=== PATIENT | male | born 1980 | race Caucasian/White ===

== ENCOUNTER 2017-01-17 22:28 | Inpatient (IN) | payer MEDICAID, OTHER ==
[2017-01-17 23:05] LABS: Basophils # (A) 0.1 k/uL (0-0.2); Basophils % (A) 1 %; CH 32.3; CHCM 36.4; Eosinophils # (A) 0.1 k/uL (0-0.7); Eosinophils % (A) 2 %; HDW 2.44; HGB 12.3 gm/dL (13.0-17.5); Luc # (Auto) 0.11; Luc % (Auto) 3; Lymphocytes # (A) 1.6 k/uL (1.0-4.8); Lymphocytes % (A) 37 %; MCH 31.2 pg (25.0-35.0); MCV 89.2 fL (80.0-100.0); Mean Platelet Volume 7.3; Monocytes # (A) 0.3 k/uL (0-1.0); Monocytes % (A) 7 %; Neutrophils # (A) 2.1 k/uL (1.3-7.7); Neutrophils % (A) 50 %; RBC 3.93 m/uL (4.30-5.90); RDW 13.2 % (11.5-15.5); WBC 4.3 k/uL (3.8-10.6); WBC (Perox) 4.31
[2017-01-17 23:18] LABS: Partial Thromboplastin Time 22.4 sec (22.0-30.0); Prothrombin Time 10.4 sec (9.0-12.0)
[2017-01-17 23:19] LABS: ALT 39 U/L (21-72); AST 32 U/L (17-59); Alcohol 60 mg/dL; Alkaline Phosphatase 41 U/L (38-126); Anion Gap 11 mmol/L; Blood Urea Nitrogen 13 mg/dL (9-20); Calcium 10.3 mg/dL (8.4-10.2); Carbon Dioxide 27 mmol/L (22-30); Chloride 102 mmol/L (98-107); Glucose 113 mg/dL (74-99); Magnesium 1.4 mg/dL (1.6-2.3); Non-African American GFR(MDRD) >60 (>60 ml/min/1.73 sqM); Potassium 3.3 mmol/L (3.5-5.1); Sodium 140 mmol/L (137-145); Total Bilirubin 0.5 mg/dL (0.2-1.3); Total Protein 6.7 g/dL (6.3-8.2)
[2017-01-17 23:33] LABS: Creatine Kinase 271 U/L (55-170)
[2017-01-17] MEDS ORDERED: POTASSIUM CHLORIDE ER 20 MEQ TAB.ER PO STA (23:40)
[2017-01-17] MEDS ORDERED: MAGNESIUM SULFATE-D5W PMX 1 GM in DEXTROSE/WATER 1 100ML.BAG IVPB ONE (23:40)
[2017-01-17] MEDS ORDERED: SODIUM CHLORIDE 0.9% 1,000 ML IV ONE (23:40)
[2017-01-17 23:46] LABS: Troponin I <0.012 ng/mL (0.000-0.034)
--- NOTE | 2017-01-17 23:51 | ED ---
General Adult HPI - General Chief complaint: Chest Pain Stated complaint: chest pain/blurred vision Time Seen by Provider: 01/17/17 22:43 Source: patient, RN notes reviewed, old records reviewed Mode of arrival: ambulatory Limitations: no limitations - History of Present Illness Initial comments: 29-year-old male presents with multiple complaints. Patient has past medical history of a call abuse and depression. He presents with chief complaint of generalized weakness, nausea vomiting diarrhea over the past several days as well as anterior chest tightness which present for 3 days constant nature, nonradiating. Patient also reports suicidal ideation. He will not explain a specific plan but does state that he wants to end his life. Patient denies any ingestion. He states he drank 1 shot of alcohol over the past 3 days. Does have a history of chronic pain and was previously on opiate pain medications but states he has not had this in several weeks. - Related Data Home Medications Medication Instructions Recorded Confirmed Dextroamphetamine/Amphetamine 20 mg PO QAM 01/17/17 01/17/17 [Adderall Xr] buPROPion HCL [Wellbutrin XL] 300 mg PO DAILY 01/17/17 01/17/17 busPIRone HCL 20 mg PO TID 01/17/17 01/17/17 traZODone HCL 150 mg PO HS 01/17/17 01/17/17 Previous Rx's Medication Instructions Recorded Mirtazapine [Remeron] 15 mg PO HS #14 tab 01/19/17 Allergies Allergy/AdvReac Type Severity Reaction Status Date / Time No Known Allergies Allergy Verified 01/18/17 09:59 Review of Systems ROS Statement: Those systems with pertinent positive or pertinent negative responses have been documented in the HPI. ROS Other: All systems not noted in ROS Statement are negative. Past Medical History Past Medical History: No Reported History Additional Past Medical History / Comment(s): 1 seizure History of Any Multi-Drug Resistant Organisms: None Reported Past Surgical History: No Surgical Hx Reported Additional Past Surgical History / Comment(s): Strabismus surgery as a child. Past Psychological History: Anxiety, Depression Smoking Status: Current every day smoker Past Alcohol Use History: Abuse, Daily, Heavy Past Drug Use History: None Reported - Past Family History Father Additional Family Medical History / Comment(s): Father is alive in his 50s with history of COPD. Sister(s) Additional Family Medical History / Comment(s): He has 5 sisters and one has drug abuse issues. Patient does not have any brothers. He has one 5-year-old daughter. Mother History Unknown: Yes Additional Family Medical History / Comment(s): Mother is alive in her 50s with no major medical problems. General Exam Limitations: no limitations General appearance: alert, in no apparent distress Head exam: Present: atraumatic, normocephalic Eye exam: Present: normal appearance, PERRL ENT exam: Present: mucous membranes dry Neck exam: Present: normal inspection. Absent: meningismus Respiratory exam: Present: normal lung sounds bilaterally. Absent: respiratory distress, wheezes Cardiovascular Exam: Present: regular rate, normal rhythm GI/Abdominal exam: Present: soft. Absent: distended, tenderness Extremities exam: Present: normal inspection, normal capillary refill. Absent: pedal edema Neurological exam: Present: alert, CN II-XII intact. Absent: motor sensory deficit Psychiatric exam: Present: depressed, flat affect, suicidal ideation Skin exam: Present: warm, dry, intact. Absent: cyanosis, diaphoretic Course Vital Signs 01/17/17 01/17/17 01/18/17 22:32 23:44 00:51 Temperature 97.4 F L Pulse Rate 60 54 L 54 L Respiratory 18 17 16 Rate Blood Pressure 119/73 110/70 92/51 O2 Sat by Pulse 98 98 94 L Oximetry 01/18/17 01/18/17 01/18/17 01:55 02:43 03:48 Temperature 98.1 F Pulse Rate 53 L 53 L 53 L Respiratory 16 17 Rate Blood Pressure 109/55 100/54 116/70 O2 Sat by Pulse 97 98 Oximetry EKG Findings - EKG Comments: EKG Findings:: EKG shows sinus bradycardia with sinus arrhythmia, ventricular rate of 57, MT interval 146, QRS duration 116, QTC 428 Medical Decision Making - Medical Decision Making 36-year-old male presenting with chief complaint suicidal ideation, chest pain, nausea vomiting and diarrhea. Laboratory studies are obtained, reveal mild anemia with hemoglobin 12.3, mild hypokalemia potassium 3.3 which is replaced. Magnesium is 1.4 and is replaced. Serum alcohol level is 60. Patient does appear dehydrated on examination he receives IV hydration while in the emergency department. Patient is complaining of suicidal ideation, he does appear depressed with a very flat affect. Patient does have chest complaint of chest pain. EKG is nonischemic, chest x- ray shows no acute findings. Pain is been present for 3 days and troponin is negative. Urinalysis is pending. Patient is medically cleared awaiting EPS evaluation at [facility] [place] Patient's care is signed out to the oncoming physician at 1 AM. - Lab Data Result diagrams: 01/18/17 09:25 01/18/17 09:25 Lab Results 01/17/17 01/17/17 01/17/17 Range/Units 22:58 22:58 22:58 WBC 4.3 (3.8-10.6) k/uL RBC 3.93 L (4.30-5.90) m/uL Hgb 12.3 L (13.0-17.5) gm/dL Hct 35.0 L (39.0-53.0) % MCV 89.2 (80.0-100.0) fL MCH 31.2 (25.0-35.0) pg MCHC 35.0 (31.0-37.0) g/dL RDW 13.2 (11.5-15.5) % Plt Count 213 (150-450) k/uL Neutrophils % 50 % Lymphocytes % 37 % Monocytes % 7 % Eosinophils % 2 % Basophils % 1 % Neutrophils # 2.1 (1.3-7.7) k/uL Lymphocytes # 1.6 (1.0-4.8) k/uL Monocytes # 0.3 (0-1.0) k/uL Eosinophils # 0.1 (0-0.7) k/uL Basophils # 0.1 (0-0.2) k/uL PT (9.0-12.0) sec INR (<1.2) APTT (22.0-30.0) sec D-Dimer (<0.60) mg/L FEU Sodium 140 (137-145) mmol/L Potassium 3.3 L (3.5-5.1) mmol/L Chloride 102 (98-107) mmol/L Carbon Dioxide 27 (22-30) mmol/L Anion Gap 11 mmol/L BUN 13 (9-20) mg/dL Creatinine 0.80 (0.66-1.25) mg/dL Est GFR (MDRD) Af Amer >60 (>60 ml/min/1.73 sqM) Est GFR (MDRD) Non-Af >60 (>60 ml/min/1.73 sqM) Glucose 113 H (74-99) mg/dL Calcium 10.3 H (8.4-10.2) mg/dL Magnesium 1.4 L (1.6-2.3) mg/dL Total Bilirubin 0.5 (0.2-1.3) mg/dL AST 32 (17-59) U/L ALT 39 (21-72) U/L Alkaline Phosphatase 41 (38-126) U/L Total Creatine Kinase 271 H (55-170) U/L CK-MB (CK-2) 3.5 H* (0.0-2.4) ng/mL CK-MB (CK-2) Rel Index 1.3 Troponin I <0.012 (0.000-0.034) ng/mL Total Protein 6.7 (6.3-8.2) g/dL Albumin 4.1 (3.5-5.0) g/dL Lipase 183 (23-300) U/L Urine Opiates Screen (NotDetected) Ur Oxycodone Screen (NotDetected) Urine Methadone Screen (NotDetected) Ur Propoxyphene Screen (NotDetected) Ur Barbiturates Screen (NotDetected) U Tricyclic Antidepress (NotDetected) Ur Phencyclidine Scrn (NotDetected) Ur Amphetamines Screen (NotDetected) U Methamphetamines Scrn (NotDetected) U Benzodiazepines Scrn (NotDetected) Urine Cocaine Screen (NotDetected) U Marijuana (THC) Screen (NotDetected) Serum Alcohol 60 mg/dL 01/17/17 01/18/17 Range/Units 22:58 00:13 WBC (3.8-10.6) k/uL RBC (4.30-5.90) m/uL Hgb (13.0-17.5) gm/dL Hct (39.0-53.0) % MCV (80.0-100.0) fL MCH (25.0-35.0) pg MCHC (31.0-37.0) g/dL RDW (11.5-15.5) % Plt Count (150-450) k/uL Neutrophils % % Lymphocytes % % Monocytes % % Eosinophils % % Basophils % % Neutrophils # (1.3-7.7) k/uL Lymphocytes # (1.0-4.8) k/uL Monocytes # (0-1.0) k/uL Eosinophils # (0-0.7) k/uL Basophils # (0-0.2) k/uL PT 10.4 (9.0-12.0) sec INR 1.0 (<1.2) APTT 22.4 (22.0-30.0) sec D-Dimer 0.23 (<0.60) mg/L FEU Sodium (137-145) mmol/L Potassium (3.5-5.1) mmol/L Chloride (98-107) mmol/L Carbon Dioxide (22-30) mmol/L Anion Gap mmol/L BUN (9-20) mg/dL Creatinine (0.66-1.25) mg/dL Est GFR (MDRD) Af Amer (>60 ml/min/1.73 sqM) Est GFR (MDRD) Non-Af (>60 ml/min/1.73 sqM) Glucose (74-99) mg/dL Calcium (8.4-10.2) mg/dL Magnesium (1.6-2.3) mg/dL Total Bilirubin (0.2-1.3) mg/dL AST (17-59) U/L ALT (21-72) U/L Alkaline Phosphatase (38-126) U/L Total Creatine Kinase (55-170) U/L CK-MB (CK-2) (0.0-2.4) ng/mL CK-MB (CK-2) Rel Index Troponin I (0.000-0.034) ng/mL Total Protein (6.3-8.2) g/dL Albumin (3.5-5.0) g/dL Lipase (23-300) U/L Urine Opiates Screen Not Detected (NotDetected) Ur Oxycodone Screen Not Detected (NotDetected) Urine Methadone Screen Not Detected (NotDetected) Ur Propoxyphene Screen Not Detected (NotDetected) Ur Barbiturates Screen Not Detected (NotDetected) U Tricyclic Antidepress Not Detected (NotDetected) Ur Phencyclidine Scrn Not Detected (NotDetected) Ur Amphetamines Screen Not Detected (NotDetected) U Methamphetamines Scrn Not Detected (NotDetected) U Benzodiazepines Scrn Not Detected (NotDetected) Urine Cocaine Screen Not Detected (NotDetected) U Marijuana (THC) Screen Not Detected (NotDetected) Serum Alcohol mg/dL Disposition Clinical Impression: Depressed Disposition: ADMITTED IP TO THIS HOSP
--- NOTE | 2017-01-17 23:53 | XR ---
EXAM: XR Chest, 2 Views CLINICAL HISTORY: Reason: Chest Pain TECHNIQUE: Frontal and lateral views of the chest. COMPARISON: No relevant prior studies available. FINDINGS: Lungs: Unremarkable. No consolidation. Pleural space: Unremarkable. No pneumothorax. Heart: Unremarkable. No cardiomegaly. Mediastinum: Unremarkable. Bones/joints: Unremarkable. Tubes, lines and devices: Monitor leads overlying the chest, somewhat limiting evaluation. IMPRESSION: No radiographic evidence of acute cardiopulmonary process.
[2017-01-17 23:57] LABS: Creatine Kinase MB 3.5 ng/mL (0.0-2.4)
[2017-01-18] MEDS ORDERED: LORazepam 2 MG/ML SYRINGE IV PRN ×3 (01:07)
[2017-01-18] MEDS ORDERED: THIAMINE 100 MG/ML 2 ML VIAL IM STA (01:07)
[2017-01-18] MEDS: SODIUM CHLORIDE 0.9% 1,000 ML IV SCH ×2 (01:19→11:16)
[2017-01-18] MEDS ORDERED: MAGNESIUM HYDROXIDE 2,400 MG/10 ML CUP PO PRN (04:20)
[2017-01-18] MEDS ORDERED: ZIPRASIDONE 20 MG VIAL IM PRN (04:20)
[2017-01-18] MEDS ORDERED: ACETAMINOPHEN TAB 325 MG TAB PO PRN (04:20)
[2017-01-18] MEDS ORDERED: MAG HYDROX/AL HYDROX/SIMETH 30 ML CUP PO PRN (04:20)
[2017-01-18 05:57] VITALS: TEMP 96.9
--- NOTE | 2017-01-18 07:33 | P.MDCNMH ---
History of Present Illness H&P Date: 01/18/17 Chief Complaint: diarrhea 36 year old male with PMhx of depression and anxiety. He presented with a complaint of diarrhea and epigastric discomfort. He reports that diarrhea has started few days ago, multiple times a day, no blood no melena. He denies any sick contacts, he denies any abd pain, sick contacts, or unsanitary food. He still reports diarrhea overnight, however the RN responsible reported none. Patient also reported some associated vomiting at home , mainly mucus, Non bloody no melena, no headache, no fever, no chills. patient denies any similar symptoms recently.. denies any traveling or sick contact. He is not sure why he is here , but he reports unable to think straight, and feeling generalized weakness and tiredness. he reports drinking one shot of alcohol over the past days, and using heroin on regular basis. He also reported suicidal ideation however, did not attempt or have any plans. He keeps mentioning that he can not give me details as he is unable to "think clearly" and that "his brain neurotransmitters are not working properly". He is currently seen in the psych unit, he seems to be comfortable and not in any distress. he is cooperative with exam, and otherwise denies any chest pain, trouble breathing, changes in his vision, headache, or any focal numbness or weakness. Review of Systems Pertinent positives as noted in HPI. All other systems were reviewed and are negative Past Medical History Past Medical History: No Reported History (2-month-old) Additional Past Medical History / Comment(s): 1 seizure History of Any Multi-Drug Resistant Organisms: None Reported Past Surgical History: No Surgical Hx Reported Additional Past Surgical History / Comment(s): Strabismus surgery as a child. Past Psychological History: Anxiety, Depression Smoking Status: Current every day smoker Past Alcohol Use History: Abuse, Daily, Heavy Past Drug Use History: None Reported - Past Family History Father Additional Family Medical History / Comment(s): Father is alive in his 50s with history of COPD. positive for premature CAD Sister(s) Additional Family Medical History / Comment(s): He has 5 sisters and one has drug abuse issues. Patient does not have any brothers. He has one 5-year-old daughter. Mother History Unknown: Yes Additional Family Medical History / Comment(s): Mother is alive in her 50s with no major medical problems. Medications and Allergies Home Medications and Allergies Comment(s): reviewed Home Medications Medication Instructions Recorded Confirmed Type Dextroamphetamine/Amphetamine 20 mg PO QAM 01/17/17 01/17/17 History [Adderall Xr] buPROPion HCL [Wellbutrin XL] 300 mg PO DAILY 01/17/17 01/17/17 History busPIRone HCL 20 mg PO TID 01/17/17 01/17/17 History traZODone HCL 150 mg PO HS 01/17/17 01/17/17 History Allergies Allergy/AdvReac Type Severity Reaction Status Date / Time No Known Allergies Allergy Verified 01/17/17 23:01 Physical Exam Vitals: Vital Signs Temp Pulse Pulse Resp BP BP Pulse Ox 01/18/17 05:55 96.9 F L 68 16 113/67 98 01/18/17 03:48 98.1 F 53 L 17 116/70 98 01/18/17 02:43 53 L 16 100/54 97 01/18/17 01:55 53 L 109/55 01/18/17 00:51 54 L 16 92/51 94 L 01/17/17 23:44 54 L 17 110/70 98 01/17/17 22:32 97.4 F L 60 18 119/73 98 Intake and Output 01/17/17 01/17/17 01/18/17 14:59 22:59 06:59 Other: Weight 68.039 kg 55.2 kg Patient Weight 01/18/17 06:59 Weight 55.2 kg Constitutional: No acute distress, conversant Eyes: Anicteric sclerae, moist conjunctiva, no lid-lag Pupils equal round reactive to light ENMT: NC/AT Oropharynx clear, no erythema, exudates Neck: Supple, FROM, no masses, or JVD No carotid bruits No thyromegaly Lungs: Clear to auscultation Clear to percussion Normal respiratory effort, no accessory muscle use Cardiovascular: Heart regular in rate and rhythm, No murmurs, gallops, or rubs No peripheral edema Abdominal: Soft slight discomfort upon palpation of the epigastric region , no guarding , rebound or rigidity Abdomen moving with respiration Normoactive bowel sounds No hepatomegaly, No splenomegaly No palpable mass No abdominal wall hernia noted Skin: Normal temperature, tone, texture, turgor No induration No subcutaneous nodules No rash, lesions No ulcers Extremities: No digital cyanosis No clubbing Pedal pulses intact and symmetrical Radial pulses intact and symmetrical No calf tenderness Psychiatric: Alert and oriented to person, place and time Appropriate affect fair judgement Neuro Muscles Strength 5/5 in all 4 extremities Sensation to light touch grossly present throughout No focal sensory deficits Lymphatics: no palpable cervical or supraclavicular , or inguinal lymph nodes Cranial Nerve Examination - Cranial Nerves Cranial Nerve II- Optic: Intact Cranial Nerve III- Oculomotor: Intact Cranial Nerve IV- Trochlear: Intact Cranial Nerve V- Trigeminal: Intact Cranial Nerve - Abducens: Intact Cranial Nerve VII- Facial: Intact Cranial Nerve VIII- Auditory: Intact Cranial Nerve IX- Glossopharyngeal: Intact Cranial Nerve X- Vagus: Intact Cranial Nerve XI- Accessory: Intact Cranial Nerve XII- Hypoglossal: Intact Results Results: reviewed CBC & Chem 7: 01/17/17 22:58 01/17/17 22:58 Labs: Abnormal Lab Results - Last 24 Hours (Table) 01/17/17 01/17/17 01/17/17 Range/Units 22:58 22:58 22:58 RBC 3.93 L (4.30-5.90) m/uL Hgb 12.3 L (13.0-17.5) gm/dL Hct 35.0 L (39.0-53.0) % Potassium 3.3 L (3.5-5.1) mmol/L Glucose 113 H (74-99) mg/dL Calcium 10.3 H (8.4-10.2) mg/dL Magnesium 1.4 L (1.6-2.3) mg/dL Total Creatine Kinase 271 H (55-170) U/L CK-MB (CK-2) 3.5 H* (0.0-2.4) ng/mL Assessment and Plan (1) Acute diarrhea Status: Acute (2) Epigastric discomfort Status: Acute (3) Polysubstance abuse Status: Acute (4) Tobacco abuse Status: Acute (5) Depression Status: Acute (6) Mild anemia Status: Acute Plan: testing for acute infectious diarrhea causes check Cdiff, stool culture and gran stain with white count pepcid for epigastric discomfort which is most likely 2/2 alcohol symptomatic control of vomiting Potassium replacement orally depression and suicidal ideation management per psych counseled to quit drug of abuse, and smoking NRT offered alcohol level of 0.06 withdrawal precautions ativan PRN seizure and fall precautions thiamin, folic acid, and multivitamins mild anemia unknown underlying cause check FOBT check iron studies DVT ppx , patient is low risk and ambulatory
[2017-01-18] MEDS: FAMOTIDINE 20 MG TAB PO SCH ×2 (08:46→21:15)
[2017-01-18] MEDS: busPIRone HCl 10 MG TAB PO SCH ×3 (08:46→21:16)
[2017-01-18] MEDS: NICOTINE 21MG/24HR PATCH TRANSDERM SCH (08:46)
[2017-01-18] MEDS: buPROPion XL 300 MG TAB.ER.24H PO SCH (08:46)
[2017-01-18 09:54] LABS: Basophils # (A) 0.1 k/uL (0-0.2); Basophils % (A) 1 %; CHCM 34.9; Eosinophils # (A) 0.2 k/uL (0-0.7); Eosinophils % (A) 4 %; HCT 38.8 % (39.0-53.0); HDW 2.43; HGB 13.3 gm/dL (13.0-17.5); Luc # (Auto) 0.11; Luc % (Auto) 3; Lymphocytes # (A) 1.4 k/uL (1.0-4.8); Lymphocytes % (A) 35 %; MCH 31.6 pg (25.0-35.0); MCHC 34.3 g/dL (31.0-37.0); MCV 91.9 fL (80.0-100.0); Mean Platelet Volume 7.4; Monocytes # (A) 0.3 k/uL (0-1.0); Monocytes % (A) 7 %; Neutrophils % (A) 50 %; RBC 4.22 m/uL (4.30-5.90); RDW 13.5 % (11.5-15.5); WBC 4.1 k/uL (3.8-10.6); WBC (Perox) 4.29
[2017-01-18 09:56] VITALS: BMI 17.4
[2017-01-18 09:59] LABS: ALT 45 U/L (21-72); AST 36 U/L (17-59); Alkaline Phosphatase 41 U/L (38-126); Anion Gap 10 mmol/L; Blood Urea Nitrogen 16 mg/dL (9-20); Calcium 9.4 mg/dL (8.4-10.2); Carbon Dioxide 27 mmol/L (22-30); Chloride 103 mmol/L (98-107); Glucose 65 mg/dL (74-99); Iron 141 ug/dL (49-181); Non-African American GFR(MDRD) >60 (>60 ml/min/1.73 sqM); Potassium 4.3 mmol/L (3.5-5.1); Sodium 140 mmol/L (137-145); Total Bilirubin 0.6 mg/dL (0.2-1.3); Total Protein 7.1 g/dL (6.3-8.2)
[2017-01-18 10:08] LABS: % Iron Saturation 52.2 % (20-50); Total Iron Binding Capacity 270 ug/dL (261-462)
[2017-01-18] MEDS: THIAMINE 100 MG TAB PO SCH (11:22)
[2017-01-18] MEDS: FOLIC ACID 1 MG TAB PO SCH (11:22)
[2017-01-18] MEDS: MULTIVITAMINS, THERA 1 EACH TAB PO SCH (11:22)
[2017-01-18] MEDS: LORazepam 1 MG TAB PO PRN ×2 (11:24→16:42)
[2017-01-18] MEDS ORDERED: traZODone HCL 50 MG TAB PO PRN (16:18)
[2017-01-18] MEDS ORDERED: IBUPROFEN 800 MG TAB PO PRN (18:20)
[2017-01-18] MEDS ORDERED: traZODone HCL 50 MG TAB PO SCH (21:00)
[2017-01-18] MEDS ORDERED: MIRTAZAPINE 15 MG TAB PO SCH (21:00)
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
[2017-01-19] MEDS: NICOTINE 21MG/24HR PATCH TRANSDERM SCH (08:01)
[2017-01-19] MEDS: FAMOTIDINE 20 MG TAB PO SCH (08:01)
[2017-01-19] MEDS: buPROPion XL 300 MG TAB.ER.24H PO SCH (08:01)
[2017-01-19] MEDS: busPIRone HCl 10 MG TAB PO SCH (08:01)
[2017-01-19] MEDS: LORazepam 1 MG TAB PO PRN (08:03)
[2017-01-19] MEDS ORDERED: ADDERALL 20 MG PO SCH ×2 (09:00)
[2017-01-19] MEDS: THIAMINE 100 MG TAB PO SCH (11:45)
[2017-01-19] MEDS: MULTIVITAMINS, THERA 1 EACH TAB PO SCH (11:45)
[2017-01-19] MEDS: FOLIC ACID 1 MG TAB PO SCH (11:45)
[2017-01-19 11:53] VITALS: BP 122/88; PULSE 101; RESP 18
--- NOTE | 2017-01-28 23:05 | P.DS ---
Providers Date of admission: 01/18/17 04:07 Expected date of discharge: 01/19/17 Attending physician: Manuel Mcclelland DO Consults: 01/18/17 04:20 Consult Physician Routine Consulting Provider: Denis Ly Consult Reason/Comments: H & P and medical management Do you want consulting provider notified?: Yes Primary care physician: Stated None - Discharge Diagnosis(es) (1) Major depressive disorder, recurrent episode, severe Status: Acute Priority: High (2) Alcohol use disorder, severe, in sustained remission Status: Chronic Priority: Medium Hospital Course: Cynthia Escalona is a 36 year old male admitted to [facility] for further evaluation after endorsing suicidal ideation in the emergency department where he had initially presented with chief complaints of GI discomfort, nausea, and diarrhea. During his initial interview patient had significant psychomotor retardation and reported he had not been eating or sleeping well for weeks. Patient has 2 jobs, a girlfriend, and children. During his hospitalization, Remeron was added to his outpatient regimen of Wellbutrin XL + Adderall XR. Patient tolerated Remeron well with no adverse side effects. He reported sleeping and eating better. At time of discharge, patient was much more awake and alert, no PMA or PMR, his speech was clear, mood was still depressed and constricted but patient denied having any intrusive thoughts of SI. At time of discharge, patient denied SI/HI/AVH. Patient Condition at Discharge: Fair Plan - Discharge Summary New Discharge Prescriptions: New Mirtazapine [Remeron] 15 mg PO HS #14 tab No Action buPROPion HCL [Wellbutrin XL] 300 mg PO DAILY traZODone HCL 150 mg PO HS busPIRone HCL 20 mg PO TID Dextroamphetamine/Amphetamine [Adderall Xr] 20 mg PO QAM Discharge Medication List Dextroamphetamine/Amphetamine [Adderall Xr] 20 mg PO QAM 01/17/17 [History] buPROPion HCL [Wellbutrin XL] 300 mg PO DAILY 01/17/17 [History] busPIRone HCL 20 mg PO TID 01/17/17 [History] traZODone HCL 150 mg PO HS 01/17/17 [History] Mirtazapine [Remeron] 15 mg PO HS #14 tab 01/19/17 [Rx] Follow up Appointment(s)/Referral(s): [facility] [Outside] - 1 Week (01/23/17 at 6PM with Geovanna Murdock in [place] 02/12/17 at 10 AM with Yasmine Becerra in [place]) None,Stated [Primary Care Provider] - 1-2 days Patient Instructions/Handouts: How to Stop Smoking (DC), Depression (DC), Abuse of Alcohol (DC) Activity/Diet/Wound Care/Special Instructions: Normal diet, no restrictions on activity; Remove all weapons and firearms from the home; Refrain from street drugs and alcohol; Follow-up with your PCP in 1-2 days; Keep all scheduled up appointments for continuity of care; Any problems call your PCP or the Crisis Line at or [phone] in case of emergency. Discharge Disposition: HOME SELF-CARE
== END 2017-01-19 15:14 | disposition home or self-care (01) | DRG 885 ==
LOC: EC 22:28 → 3MHU 01-18 04:07
PROVIDERS: ADMIT Psychiatry & Neurology Psychiatry; ATTEND Psychiatry & Neurology Psychiatry
DX: F33.2 Major depressive disorder, recurrent severe without psychotic features (principal); M41.9 Scoliosis, unspecified; R45.851 Suicidal ideations; E29.1 Testicular hypofunction; D64.9 Anemia, unspecified; E86.0 Dehydration; E87.6 Hypokalemia; F10.21 Alcohol dependence, in remission; F41.9 Anxiety disorder, unspecified; G47.00 Insomnia, unspecified; G89.29 Other chronic pain; J30.9 Allergic rhinitis, unspecified; Z81.8 Family history of other mental and behavioral disorders; Z82.49 Family history of ischemic heart disease and other diseases of the circulatory system; Z82.5 Family history of asthma and other chronic lower respiratory diseases; Z72.0 Tobacco use
CPT/HCPCS: 36415; 71020; 80053; 80306; 80320; 82075; 82550; 82553; 82728; 83540; 83550; 83690; 83735; 84443; 84484; 85025; 85379; 85610; 85730; 93005; 96361; 96365; 96372; 99285

== ENCOUNTER 2017-10-31 12:42 | Emergency (ER) | payer OTHER ==
[2017-10-31] MEDS ORDERED: SODIUM CHLORIDE 0.9% 1,000 ML IV ONE (14:06)
[2017-10-31] MEDS ORDERED: DIAZEPAM 5 MG/ML 2 ML INJ IVP STA ×2 (14:07→16:58)
[2017-10-31] MEDS ORDERED: ACETAMINOPHEN IV (For NPO) 1,000 MG in EMPTY BAG 1 BAG IVPB STA (14:08)
[2017-10-31] MEDS ORDERED: SODIUM CHLORIDE 0.9% 1,000 ML with MVI, ADULT NO.4 WITH VIT K 10 ML, THIAMINE 100 MG, F... IV ONE ×4 (14:15)
[2017-10-31 14:18] LABS: Basophils % (A) 1 %; Eosinophils % (A) 1 %; HCT 42.9 % (39.0-53.0); HGB 14.8 gm/dL (13.0-17.5); Lymphocytes # (A) 0.7 k/uL (1.0-4.8); Lymphocytes % (A) 24 %; MCH 30.3 pg (25.0-35.0); MCHC 34.5 g/dL (31.0-37.0); MCV 87.7 fL (80.0-100.0); Mean Platelet Volume 9.3; Monocytes # (A) 0.2 k/uL (0-1.0); Monocytes % (A) 7 %; Neutrophils % (A) 66 %; RBC 4.89 m/uL (4.30-5.90); RDW 13.9 % (11.5-15.5)
--- NOTE | 2017-10-31 14:29 | ED ---
General Adult HPI - General Chief complaint: Nausea/Vomiting/Diarrhea Stated complaint: vomiting/weakness Time Seen by Provider: 10/31/17 14:00 Source: patient, RN notes reviewed Mode of arrival: wheelchair Limitations: no limitations - History of Present Illness Initial comments: This is a 37-year-old male whose complaint today is shaking and vomiting. Patient also states she's been having diarrhea for the last week. Patient states he is a daily drinker and is been trying to quit as well as tried only drink beer but he has been unable to keep even the beer down lately. Patient feels as though he hydrated he feels warm. Patient states he has no cough no chest pain no difficulty breathing patient states that he has nausea vomiting diarrhea. Patient states he does have diffuse abdominal pain. Patient denies any rashes lesions or any areas of erythema. - Related Data Previous Rx's Medication Instructions Recorded Diazepam [Valium] 5 mg PO Q8H PRN 3 Days #9 tab 10/31/17 Allergies Allergy/AdvReac Type Severity Reaction Status Date / Time No Known Allergies Allergy Verified 10/31/17 14:14 Review of Systems ROS Statement: Those systems with pertinent positive or pertinent negative responses have been documented in the HPI. ROS Other: All systems not noted in ROS Statement are negative. Past Medical History Past Medical History: No Reported History Additional Past Medical History / Comment(s): 1 seizure History of Any Multi-Drug Resistant Organisms: None Reported Past Surgical History: No Surgical Hx Reported Additional Past Surgical History / Comment(s): Strabismus surgery as a child. Past Psychological History: Anxiety, Depression Smoking Status: Current every day smoker Past Alcohol Use History: Abuse, Daily, Heavy Past Drug Use History: None Reported - Past Family History Father Additional Family Medical History / Comment(s): Father is alive in his 50s with history of COPD. Sister(s) Additional Family Medical History / Comment(s): He has 5 sisters and one has drug abuse issues. Patient does not have any brothers. He has one 5-year-old daughter. Mother History Unknown: Yes Additional Family Medical History / Comment(s): Mother is alive in her 50s with no major medical problems. General Exam - General Exam Comments Initial Comments: GENERAL: Patient is well-developed and well-nourished. Patient is nontoxic and well- hydrated and is in mild distress. ENT: Neck is soft and supple. No significant lymphadenopathy is noted. Oropharynx is clear. Moist mucous membranes. Neck has full range of motion without eliciting any pain. EYES: The sclera were anicteric and conjunctiva were pink and moist. Extraocular movements were intact and pupils were equal round and reactive to light. Eyelids were unremarkable. PULMONARY: Unlabored respirations. Good breath sounds bilaterally. CARDIOVASCULAR: There is a regular rate and rhythm without any murmurs gallops or rubs. ABDOMEN: Abdomen is mildly tender SKIN: Skin is clear with no lesions or rashes and otherwise unremarkable. NEUROLOGIC: Patient is alert and oriented x3. Cranial nerves II through XII are grossly intact. Motor and sensory are also intact. Normal speech, volume and content. Symmetrical smile. MUSCULOSKELETAL: Normal extremities with adequate strength and full range of motion. LYMPHATICS: No significant lymphadenopathy is noted PSYCHIATRIC: Normal psychiatric evaluation. Limitations: no limitations Course Vital Signs 10/31/17 10/31/17 10/31/17 13:30 14:12 15:09 Temperature 98.2 F 100.6 F H 98.8 F Pulse Rate 88 78 Respiratory 16 18 Rate Blood Pressure 113/79 165/125 O2 Sat by Pulse 100 99 Oximetry 10/31/17 15:38 Temperature Pulse Rate 67 Respiratory 18 Rate Blood Pressure 115/75 O2 Sat by Pulse 99 Oximetry Medical Decision Making - Lab Data Result diagrams: 10/31/17 14:00 10/31/17 14:00 Lab Results 10/31/17 10/31/17 10/31/17 Range/Units 14:00 14:00 14:00 WBC 3.0 L (3.8-10.6) k/uL RBC 4.89 (4.30-5.90) m/uL Hgb 14.8 (13.0-17.5) gm/dL Hct 42.9 (39.0-53.0) % MCV 87.7 (80.0-100.0) fL MCH 30.3 (25.0-35.0) pg MCHC 34.5 (31.0-37.0) g/dL RDW 13.9 (11.5-15.5) % Plt Count 87 L (150-450) k/uL Neutrophils % 66 % Lymphocytes % 24 % Monocytes % 7 % Eosinophils % 1 % Basophils % 1 % Neutrophils # 2.0 (1.3-7.7) k/uL Lymphocytes # 0.7 L (1.0-4.8) k/uL Monocytes # 0.2 (0-1.0) k/uL Eosinophils # 0.0 (0-0.7) k/uL Basophils # 0.0 (0-0.2) k/uL Poikilocytosis (manual Present Anisocytosis (manual) Present Target Cells Present Sodium 136 L (137-145) mmol/L Potassium 3.9 (3.5-5.1) mmol/L Chloride 94 L (98-107) mmol/L Carbon Dioxide 27 (22-30) mmol/L Anion Gap 15 mmol/L BUN 12 (9-20) mg/dL Creatinine 0.80 (0.66-1.25) mg/dL Est GFR (CKD-EPI)AfAm >90 (>60 ml/min/1.73 sqM) Est GFR (CKD-EPI)NonAf >90 (>60 ml/min/1.73 sqM) Glucose 105 H (74-99) mg/dL Plasma Lactic Acid Guillermo 1.2 (0.7-2.0) mmol/L Calcium 9.8 (8.4-10.2) mg/dL Magnesium 1.5 L (1.6-2.3) mg/dL Total Bilirubin 0.8 (0.2-1.3) mg/dL AST 303 H (17-59) U/L ALT 197 H (21-72) U/L Alkaline Phosphatase 88 (38-126) U/L Total Protein 8.3 H (6.3-8.2) g/dL Albumin 4.9 (3.5-5.0) g/dL Urine Color Urine Appearance (Clear) Urine pH (5.0-8.0) Ur Specific [place] (1.001-1.035) Urine Protein (Negative) Urine Glucose (UA) (Negative) Urine Ketones (Negative) Urine Blood (Negative) Urine Nitrite (Negative) Urine Bilirubin (Negative) Urine Urobilinogen (<2.0) mg/dL Ur Leukocyte Esterase (Negative) Urine RBC (0-5) /hpf Urine WBC (0-5) /hpf Ur Squamous Epith Cells (0-4) /hpf Amorphous Sediment (None) /hpf Hyaline Casts (0-2) /lpf Urine Mucus (None) /hpf Serum Alcohol <10 mg/dL 10/31/17 Range/Units Unknown WBC (3.8-10.6) k/uL RBC (4.30-5.90) m/uL Hgb (13.0-17.5) gm/dL Hct (39.0-53.0) % MCV (80.0-100.0) fL MCH (25.0-35.0) pg MCHC (31.0-37.0) g/dL RDW (11.5-15.5) % Plt Count (150-450) k/uL Neutrophils % % Lymphocytes % % Monocytes % % Eosinophils % % Basophils % % Neutrophils # (1.3-7.7) k/uL Lymphocytes # (1.0-4.8) k/uL Monocytes # (0-1.0) k/uL Eosinophils # (0-0.7) k/uL Basophils # (0-0.2) k/uL Poikilocytosis (manual Anisocytosis (manual) Target Cells Sodium (137-145) mmol/L Potassium (3.5-5.1) mmol/L Chloride (98-107) mmol/L Carbon Dioxide (22-30) mmol/L Anion Gap mmol/L BUN (9-20) mg/dL Creatinine (0.66-1.25) mg/dL Est GFR (CKD-EPI)AfAm (>60 ml/min/1.73 sqM) Est GFR (CKD-EPI)NonAf (>60 ml/min/1.73 sqM) Glucose (74-99) mg/dL Plasma Lactic Acid Guillermo (0.7-2.0) mmol/L Calcium (8.4-10.2) mg/dL Magnesium (1.6-2.3) mg/dL Total Bilirubin (0.2-1.3) mg/dL AST (17-59) U/L ALT (21-72) U/L Alkaline Phosphatase (38-126) U/L Total Protein (6.3-8.2) g/dL Albumin (3.5-5.0) g/dL Urine Color Yellow Urine Appearance Clear (Clear) Urine pH 8.0 (5.0-8.0) Ur Specific [place] 1.026 (1.001-1.035) Urine Protein 3+ H (Negative) Urine Glucose (UA) Negative (Negative) Urine Ketones 1+ H (Negative) Urine Blood Negative (Negative) Urine Nitrite Negative (Negative) Urine Bilirubin 1+ H (Negative) Urine Urobilinogen 4.0 (<2.0) mg/dL Ur Leukocyte Esterase Negative (Negative) Urine RBC 1 (0-5) /hpf Urine WBC 1 (0-5) /hpf Ur Squamous Epith Cells <1 (0-4) /hpf Amorphous Sediment Rare H (None) /hpf Hyaline Casts 1 (0-2) /lpf Urine Mucus Few H (None) /hpf Serum Alcohol mg/dL Disposition Clinical Impression: Alcohol withdrawal Disposition: HOME SELF-CARE Condition: Good Instructions: Alcohol Withdrawal (ED) Prescriptions: Diazepam [Valium] 5 mg PO Q8H PRN 3 Days #9 tab PRN Reason: Agitation Is patient prescribed a controlled substance at d/c from ED?: Yes Referrals: Kam Menchaca DO [Primary Care Provider] - 1-2 days
--- NOTE | 2017-10-31 14:32 | XR ---
EXAMINATION TYPE: XR chest 2V DATE OF EXAM: 10/31/2017 COMPARISON: 01/17/2017 INDICATION: Difficulty breathing TECHNIQUE: Frontal and lateral views of the chest are obtained. FINDINGS: The heart size is normal. The pulmonary vasculature is normal. The lungs are clear. IMPRESSION: 1. No acute pulmonary process.
[2017-10-31 14:37] LABS: ALT 197 U/L (21-72); AST 303 U/L (17-59); Albumin 4.9 g/dL (3.5-5.0); Alcohol <10 mg/dL; Alkaline Phosphatase 88 U/L (38-126); Anion Gap 15 mmol/L; Blood Urea Nitrogen 12 mg/dL (9-20); Calcium 9.8 mg/dL (8.4-10.2); Carbon Dioxide 27 mmol/L (22-30); Chloride 94 mmol/L (98-107); Glucose 105 mg/dL (74-99); Magnesium 1.5 mg/dL (1.6-2.3); Potassium 3.9 mmol/L (3.5-5.1); Sodium 136 mmol/L (137-145); Total Bilirubin 0.8 mg/dL (0.2-1.3); Total Protein 8.3 g/dL (6.3-8.2)
[2017-10-31 14:43] LABS: Platelet Count 87 k/uL (150-450)
[2017-10-31 14:45] LABS: Anisocytosis (M) Present; Poikilocytosis (M) Present; Target Cells Present
[2017-10-31] MEDS ORDERED: IBUPROFEN IV 600 MG in SODIUM CHLORIDE 0.9% 250 ML IV ONE (15:00)
[2017-10-31 15:14] VITALS: RESP 18
[2017-10-31] MEDS ORDERED: MAGNESIUM SULFATE-D5W PMX 1 GM in DEXTROSE/WATER 1 100ML.BAG IVPB ONE (15:16)
[2017-10-31 15:51] LABS: Amorphous Sediment,Urine Rare /hpf; Appearance,Urine Clear (Clear); Bilirubin,Urine 1+ (Negative); Blood,Urine Negative (Negative); Color,Urine Yellow; Glucose,Urine (UA) Negative (Negative); Hyaline Casts,Urine 1 /lpf (0-2); Ketones,Urine 1+ (Negative); Leukocyte Esterase,Urine Negative (Negative); Mucus,Urine Few /hpf; Nitrite,Urine Negative (Negative); Protein,Urine 3+ (Negative); RBC,Urine 1 /hpf (0-5); Specific Gravity,Urine 1.026 (1.001-1.035); Squamous Epithelial Cell,Urine <1 /hpf (0-4); WBC,Urine 1 /hpf (0-5)
[2017-10-31] MEDS ORDERED: ONDANSETRON 4 MG ODT STARTER PACK 2 TAB BTL PO STA (16:58)
[2017-10-31 17:16] VITALS: BP 113/75; PULSE 73; TEMP 97.2
== END 2017-10-31 17:18 | disposition home or self-care (01) ==
LOC: EC 12:42
DX: F10.239 Alcohol dependence with withdrawal, unspecified (principal); Y90.0 Blood alcohol level of less than 20 mg/100 ml; F17.200 Nicotine dependence, unspecified, uncomplicated
CPT/HCPCS: 99284; 96365; 96366 ×2; 96368; 96375 ×2; 96376; 36415; 80053; 83605; 83735; 85025; 81001; 87040; 80320; 71046; J3411; J3360; J3475; J0131; S0119; J1741

== ENCOUNTER 2018-09-30 05:22 | Emergency (ER) | payer OTHER ==
--- NOTE | 2018-09-30 05:30 | ED ---
Psych HPI <Laura Hughes - Last Filed: 09/30/18 07:18> <Luis Shahid - Last Filed: 09/30/18 13:57> - General Stated Complaint: ETOH Time Seen by Provider: 09/30/18 05:29 - History of Present Illness Initial Comments: Pola is a 38-year-old MALE who is brought to the emergency department today by EMS for evaluation of suicidal thoughts and alcohol intoxication. She reports he drank over a fifth of vodka today that he drinks every day and has drink every day for approximately 10 years. Patient states that his mother today and he just wants to . EMS reports that they were dispatched to the patient's home for call of cardiac arrest. His mother was found to be unresponsive the attempted resuscitation but were unsuccessful and his mother was pronounced . EMS reports that throughout this Pola remained asleep on the couch, his father advised EMS that was better if he sleep because he would be very upset. After EMS left the house they were again dispatch back to the residence for psychiatric evaluation. They found the patient sitting in his front yard, he reported that he could not walk that he was intoxicated and that he wanted to . (Laura Hughes) - Related Data Home Medications Medication Instructions Recorded Confirmed Ibuprofen [Motrin] 800 mg PO TID PRN 09/30/18 09/30/18 Omeprazole 20 mg PO DAILY PRN 09/30/18 09/30/18 hydrOXYzine PAMOATE [Vistaril] 25 mg PO TID PRN 09/30/18 09/30/18 traZODone HCL 200 mg PO HS 09/30/18 09/30/18 Allergies Allergy/AdvReac Type Severity Reaction Status Date / Time No Known Allergies Allergy Verified 09/30/18 07:12 Review of Systems ROS Other: All systems not noted in ROS Statement are negative. <Laura Hughes - Last Filed: 09/30/18 07:18> ROS Other: All systems not noted in ROS Statement are negative. <Luis Shahid - Last Filed: 09/30/18 13:57> ROS Statement: Those systems with pertinent positive or pertinent negative responses have been documented in the HPI. Past Medical History Past Medical History: No Reported History Additional Past Medical History / Comment(s): 1 seizure History of Any Multi-Drug Resistant Organisms: None Reported Past Surgical History: No Surgical Hx Reported Additional Past Surgical History / Comment(s): Strabismus surgery as a child. Past Psychological History: Anxiety, Depression Smoking Status: Current every day smoker Past Alcohol Use History: Abuse, Daily, Heavy Past Drug Use History: None Reported - Past Family History Father Additional Family Medical History / Comment(s): Father is alive in his 50s with history of COPD. Sister(s) Additional Family Medical History / Comment(s): He has 5 sisters and one has drug abuse issues. Patient does not have any brothers. He has one 5-year-old daughter. Mother History Unknown: Yes Additional Family Medical History / Comment(s): Mother is alive in her 50s with no major medical problems. <Laura Hughes P - Last Filed: 09/30/18 07:18> General Exam <Laura Hughes - Last Filed: 09/30/18 07:18> - General Exam Comments Initial Comments: Physical Exam GENERAL: Patient is well-developed and well-nourished. Patient is nontoxic and well- hydrated and is in no distress. HENT: Normocephalic, Atraumatic. EYES: PERRL, EOMI PULMONARY: Unlabored respirations. No audible rales rhonchi or wheezing was noted. CARDIOVASCULAR: There is a regular rate and rhythm without any murmurs gallops or rubs. ABDOMEN: Soft and nontender with normal bowel sounds. SKIN: Skin is clear with no lesions or rashes and otherwise unremarkable. : Deferred NEUROLOGIC: Patient is alert and oriented x3. Moving all extremities spontaneously MUSCULOSKELETAL: Normal extremities with adequate strength and full range of motion. No lower extremity swelling or edema. No calf tenderness. PSYCHIATRIC: Grief reaction, stating that he feels suicidal due to his mother's approximately one hour higher to arrival in the emergency department. (Laura Hughes) Course Vital Signs 09/30/18 09/30/18 09/30/18 05:26 08:16 10:14 Temperature 97.8 F Pulse Rate 68 85 Respiratory 20 20 18 Rate Blood Pressure 107/77 103/71 O2 Sat by Pulse 96 97 Oximetry Medical Decision Making - Lab Data Result diagrams: 09/30/18 05:40 09/30/18 05:40 <Laura Hughes - Last Filed: 09/30/18 07:18> - Lab Data Result diagrams: 09/30/18 05:40 09/30/18 05:40 <Luis Shahid - Last Filed: 09/30/18 13:57> - Medical Decision Making Pt was seen and evaluated history is obtained from patient and EMS Labs ordered Labs with a beta transaminases are consistent with chronic alcohol abuse Alcohol elevated, patient will be reevaluated for sobriety and 6 hours Signed out to day time physician patient is pending evaluation by psychiatric services. (Laura Hughes) EPS evaluated the patient admitted patient denied being suicidal. Patient s tated he would be safe if discharged home. Patient states she drank because of his mother's recent . (Luis Shahid) - Lab Data Lab Results 09/30/18 09/30/18 Range/Units 05:40 05:40 WBC 5.7 (3.8-10.6) k/uL RBC 4.46 (4.30-5.90) m/uL Hgb 13.1 (13.0-17.5) gm/dL Hct 40.7 (39.0-53.0) % MCV 91.4 (80.0-100.0) fL MCH 29.3 (25.0-35.0) pg MCHC 32.1 (31.0-37.0) g/dL RDW 13.2 (11.5-15.5) % Plt Count 160 (150-450) k/uL Neutrophils % 65 % Lymphocytes % 27 % Monocytes % 4 % Eosinophils % 3 % Basophils % 1 % Neutrophils # 3.7 (1.3-7.7) k/uL Lymphocytes # 1.5 (1.0-4.8) k/uL Monocytes # 0.2 (0-1.0) k/uL Eosinophils # 0.2 (0-0.7) k/uL Basophils # 0.0 (0-0.2) k/uL Sodium 145 (137-145) mmol/L Potassium 3.2 L (3.5-5.1) mmol/L Chloride 112 H (98-107) mmol/L Carbon Dioxide 22 (22-30) mmol/L Anion Gap 11 mmol/L BUN 9 (9-20) mg/dL Creatinine 0.60 L (0.66-1.25) mg/dL Est GFR (CKD-EPI)AfAm >90 (>60 ml/min/1.73 sqM) Est GFR (CKD-EPI)NonAf >90 (>60 ml/min/1.73 sqM) Glucose 92 (74-99) mg/dL Calcium 8.6 (8.4-10.2) mg/dL Total Bilirubin 0.5 (0.2-1.3) mg/dL AST 124 H (17-59) U/L ALT 76 H (21-72) U/L Alkaline Phosphatase 41 (38-126) U/L Total Protein 6.5 (6.3-8.2) g/dL Albumin 3.8 (3.5-5.0) g/dL Serum Alcohol 212 H* mg/dL Disposition Is patient prescribed a controlled substance at d/c from ED?: No <Laura Hughes - Last Filed: 09/30/18 07:18> Time of Disposition: 13:57 <Luis Shahid - Last Filed: 09/30/18 13:57> Clinical Impression: Alcohol intoxication, Grief reaction, Situational depression Disposition: HOME SELF-CARE Instructions (If sedation given, give patient instructions): Abuse of Alcohol (ED) Referrals: None,Stated [Primary Care Provider] - 1-2 days
[2018-09-30 05:54] LABS: Basophils % (A) 1 %; Eosinophils # (A) 0.2 k/uL (0-0.7); Eosinophils % (A) 3 %; HCT 40.7 % (39.0-53.0); HGB 13.1 gm/dL (13.0-17.5); Lymphocytes # (A) 1.5 k/uL (1.0-4.8); Lymphocytes % (A) 27 %; MCH 29.3 pg (25.0-35.0); MCHC 32.1 g/dL (31.0-37.0); MCV 91.4 fL (80.0-100.0); Mean Platelet Volume 7.1; Monocytes # (A) 0.2 k/uL (0-1.0); Monocytes % (A) 4 %; Neutrophils # (A) 3.7 k/uL (1.3-7.7); Neutrophils % (A) 65 %; Platelet Count 160 k/uL (150-450); RBC 4.46 m/uL (4.30-5.90); RDW 13.2 % (11.5-15.5); WBC 5.7 k/uL (3.8-10.6)
[2018-09-30 06:05] LABS: ALT 76 U/L (21-72); AST 124 U/L (17-59); Albumin 3.8 g/dL (3.5-5.0); Alkaline Phosphatase 41 U/L (38-126); Anion Gap 11 mmol/L; Blood Urea Nitrogen 9 mg/dL (9-20); Calcium 8.6 mg/dL (8.4-10.2); Carbon Dioxide 22 mmol/L (22-30); Chloride 112 mmol/L (98-107); Glucose 92 mg/dL (74-99); Potassium 3.2 mmol/L (3.5-5.1); Sodium 145 mmol/L (137-145); Total Bilirubin 0.5 mg/dL (0.2-1.3); Total Protein 6.5 g/dL (6.3-8.2)
[2018-09-30 06:09] LABS: Alcohol 212 mg/dL
[2018-09-30] MEDS ORDERED: chlordiazePOXIDE 25 MG CAP PO ONE (09:00)
[2018-09-30 15:21] VITALS: BP 110/73; PULSE 100; RESP 20; TEMP 100.3
== END 2018-09-30 15:20 | disposition home or self-care (01) ==
LOC: EC 05:22
DX: F43.21 Adjustment disorder with depressed mood (principal); F10.129 Alcohol abuse with intoxication, unspecified; R45.851 Suicidal ideations; F41.9 Anxiety disorder, unspecified; F17.200 Nicotine dependence, unspecified, uncomplicated; Z79.899 Other long term (current) drug therapy; Z63.4 Disappearance and death of family member; Z81.4 Family history of other substance abuse and dependence
CPT/HCPCS: 36415; 80053; 80320; 82075; 85025; 99285

== ENCOUNTER 2018-09-30 22:00 | Inpatient (IN) | payer OTHER ==
[2018-09-30] MEDS ORDERED: SODIUM CHLORIDE 0.9% 1,000 ML IV STA (22:45)
[2018-09-30 23:18] LABS: Alcohol 64 mg/dL; Anion Gap 11 mmol/L; Blood Urea Nitrogen 11 mg/dL (9-20); Calcium 9.4 mg/dL (8.4-10.2); Carbon Dioxide 24 mmol/L (22-30); Chloride 104 mmol/L (98-107); Glucose 71 mg/dL (74-99); Magnesium 1.2 mg/dL (1.6-2.3); Potassium 3.4 mmol/L (3.5-5.1); Sodium 139 mmol/L (137-145)
[2018-09-30 23:21] LABS: Basophils % (A) 1 %; Eosinophils # (A) 0.1 k/uL (0-0.7); Eosinophils % (A) 3 %; HCT 38.8 % (39.0-53.0); Lymphocytes # (A) 1.9 k/uL (1.0-4.8); Lymphocytes % (A) 43 %; MCH 30.1 pg (25.0-35.0); MCHC 33.4 g/dL (31.0-37.0); Mean Platelet Volume 7.8; Monocytes # (A) 0.2 k/uL (0-1.0); Monocytes % (A) 5 %; Neutrophils % (A) 47 %; Platelet Count 138 k/uL (150-450); RBC 4.31 m/uL (4.30-5.90); RDW 13.5 % (11.5-15.5); WBC 4.3 k/uL (3.8-10.6)
[2018-09-30] MEDS ORDERED: LORazepam 2 MG/ML INJ IV PRN (23:24)
[2018-09-30] MEDS ORDERED: THIAMINE 100 MG/ML 2 ML VIAL IM STA (23:24)
--- NOTE | 2018-09-30 23:27 | ED ---
General Adult HPI - General Chief complaint: Alcohol Stated complaint: ETOH Time Seen by Provider: 09/30/18 22:07 Source: patient, EMS Mode of arrival: EMS Limitations: no limitations - History of Present Illness Initial comments: Dictation was produced using [employer] dictation software. please excuse any grammatical, word or spelling errors. Chief Complaint: 38-year-old Chronic alcohol drinker presents with tremors. History of Present Illness: is a 38-year-old alcohol drinker. Patient states he drinks 2/5 of hard liquor on a daily basis. He was seen here yesterday for EtOH intoxication. Given prescription for Librium. He is discharged when upon discharge she began feeling tremors. States he went to buy a beer however did not correct his tremulousness. Patient states he's had EtOH withdrawal to class. Patient is wanting to detoxify. Patient also feels suicidal. He reports that he feels like his family is against him and is to reason with because of his family members . It feels upset about this. Denies any visual or auditory hallucinations. Denies any homicidal ideation. The ROS documented in this emergency department record has been reviewed and confirmed by me. Those systems with pertinent positive or negative responses have been documented in the HPI. All other systems are other negative and/or noncontributory. PHYSICAL EXAM: General Impression: Alert and oriented x3, tremulous HEENT: Normocephalic atraumatic, extra-ocular movements intact, pupils equal and reactive to light bilaterally, mucous membranes moist. Cardiovascular: Heart regular rate and rhythm, S1&S2 audible, no murmurs, rubs or gallops Chest: Lungs clear to auscultation bilaterally, no rhonchi, no wheeze, no rales Abdomen: Bowel sounds present, abdomen soft, non-tender, non-distended, no organomegaly Musculoskeletal: Pulses present and equal in all extremities, no peripheral edema Motor: no focal deficits noted Neurological: CN II-XII grossly intact, no focal motor or sensory deficits noted Skin: Intact with no visualized rashes Psych: Normal affect and mood ED course: 38-year-old male presents with clinical presentation consistent with EtOH withdrawal. Vital signs upon arrival are within acceptable limits. Laboratory evaluation obtained. CBC unremarkable. Metabolic panel is unremarkable. Serum alcohol 64. Clinical presentation consistent with EtOH withdrawal. Patient be admitted with [facility] protocol and withdrawal treatment. Patient is also reporting suicidal ideation. Psychiatry placed on consult. - Related Data Home Medications Medication Instructions Recorded Confirmed Ibuprofen [Motrin] 800 mg PO TID PRN 09/30/18 09/30/18 Omeprazole 20 mg PO DAILY PRN 09/30/18 09/30/18 hydrOXYzine PAMOATE [Vistaril] 25 mg PO TID PRN 09/30/18 09/30/18 traZODone HCL 200 mg PO HS 09/30/18 09/30/18 Allergies Allergy/AdvReac Type Severity Reaction Status Date / Time No Known Allergies Allergy Verified 09/30/18 22:23 Review of Systems ROS Statement: Those systems with pertinent positive or pertinent negative responses have been documented in the HPI. ROS Other: All systems not noted in ROS Statement are negative. Past Medical History Past Medical History: No Reported History Additional Past Medical History / Comment(s): 1 seizure History of Any Multi-Drug Resistant Organisms: None Reported Past Surgical History: No Surgical Hx Reported Additional Past Surgical History / Comment(s): Strabismus surgery as a child. Past Psychological History: Anxiety, Depression Smoking Status: Current every day smoker Past Alcohol Use History: Abuse, Daily, Heavy Past Drug Use History: None Reported - Past Family History Father Additional Family Medical History / Comment(s): Father is alive in his 50s with history of COPD. Sister(s) Additional Family Medical History / Comment(s): He has 5 sisters and one has drug abuse issues. Patient does not have any brothers. He has one 5-year-old daughter. Mother History Unknown: Yes Additional Family Medical History / Comment(s): Mother is alive in her 50s with no major medical problems. General Exam Limitations: no limitations Course Vital Signs 09/30/18 22:05 Temperature 97.5 F L Pulse Rate 58 L Respiratory 18 Rate Blood Pressure 111/78 O2 Sat by Pulse 100 Oximetry Medical Decision Making - Lab Data Result diagrams: 09/30/18 23:00 09/30/18 23:00 Lab Results 09/30/18 09/30/18 Range/Units 23:00 23:00 WBC 4.3 (3.8-10.6) k/uL RBC 4.31 (4.30-5.90) m/uL Hgb 13.0 (13.0-17.5) gm/dL Hct 38.8 L (39.0-53.0) % MCV 90.0 (80.0-100.0) fL MCH 30.1 (25.0-35.0) pg MCHC 33.4 (31.0-37.0) g/dL RDW 13.5 (11.5-15.5) % Plt Count 138 L (150-450) k/uL Neutrophils % 47 % Lymphocytes % 43 % Monocytes % 5 % Eosinophils % 3 % Basophils % 1 % Neutrophils # 2.0 (1.3-7.7) k/uL Lymphocytes # 1.9 (1.0-4.8) k/uL Monocytes # 0.2 (0-1.0) k/uL Eosinophils # 0.1 (0-0.7) k/uL Basophils # 0.0 (0-0.2) k/uL Sodium 139 (137-145) mmol/L Potassium 3.4 L (3.5-5.1) mmol/L Chloride 104 (98-107) mmol/L Carbon Dioxide 24 (22-30) mmol/L Anion Gap 11 mmol/L BUN 11 (9-20) mg/dL Creatinine 0.64 L (0.66-1.25) mg/dL Est GFR (CKD-EPI)AfAm >90 (>60 ml/min/1.73 sqM) Est GFR (CKD-EPI)NonAf >90 (>60 ml/min/1.73 sqM) Glucose 71 L (74-99) mg/dL Calcium 9.4 (8.4-10.2) mg/dL Magnesium 1.2 L (1.6-2.3) mg/dL Serum Alcohol 64 mg/dL Disposition Clinical Impression: Alcohol withdrawal Disposition: ADMITTED IP TO THIS HOSP Condition: Fair Referrals: None,Stated [Primary Care Provider] - 1-2 days Decision Time: 00:16
[2018-09-30] MEDS: THIAMINE 100 MG TAB PO SCH (23:41)
[2018-10-01] MEDS: THIAMINE 100 MG TAB PO SCH ×3 (00:05→17:22)
[2018-10-01] MEDS: LORazepam 2 MG/ML INJ IV PRN ×9 (00:06→22:38)
[2018-10-01] MEDS ORDERED: NALOXONE 0.4 MG/ML 1 ML VIAL IV PRN (00:13)
[2018-10-01] MEDS: SODIUM CHLORIDE 0.9% 1,000 ML IV SCH ×2 (00:55→17:24)
[2018-10-01 01:42] VITALS: BMI 18.8
[2018-10-01] MEDS ORDERED: Potassium Replacement Protocol 1 EACH MISC MISCELLANE PRN (09:13)
[2018-10-01] MEDS ORDERED: Magnesium Replacement Protocol 1 EACH MISC MISCELLANE PRN (09:13)
[2018-10-01] MEDS ORDERED: PANTOPRAZOLE 40 MG/10 ML VIAL IVP SCH (09:15)
--- NOTE | 2018-10-01 09:15 | P.HPIM ---
History of Present Illness This is a pleasant 38 years old male with past medical history of seizure, anxiety and depression, alcohol abuse, current cigarette smoker and marijuana abuse. Patient was sleepy this morning and talks with the low voice, patient st ates he came to the hospital because of alcohol withdrawal. He states he drinks about a pint of liquor every day and his last drink was before coming to the hospital. Also he complains from heartburn and diarrhea about 2 times per day, but no overt abdominal pain other than that. No nausea vomiting. Also patient complaining of from cough with clear phlegm but no chest pain and patient does not dyspneic or tachypneic. Patient also states that he has significant history of depression and feels suicidal. Patient could not elaborate more. There is already a sister at bedside and psychiatry service has been called by emergency room team for consult Patient states is not on anti-seizure medication Patient is hemodynamically stable. Labs reviewed showing unremarkable CBC and BMP except for low potassium at 3.4 and magnesium at. Alcohol level was 64 Review of Systems CONSTITUTIONAL: No fever, no malaise, no fatigue. HEENT: No recent visual problems or hearing problems. Denied any sore throat. CARDIOVASCULAR: No orthopnea, PND, no palpitations, no syncope. PULMONARY: No shortness of breath, no cough, no hemoptysis. GASTROINTESTINAL: No diarrhea, no nausea, no vomiting, no abdominal pain. Normoactive bowel sounds. NEUROLOGICAL: No headaches, no weakness, no numbness. HEMATOLOGICAL: Denies any bleeding or petechiae. GENITOURINARY: Denies any burning micturition, frequency, or urgency. MUSCULOSKELETAL/RHEUMATOLOGICAL: Denies any joint pain, swelling, or any muscle pain. ENDOCRINE: Denies any polyuria or polydipsia. Past Medical History Past Medical History: No Reported History Additional Past Medical History / Comment(s): 1 seizure History of Any Multi-Drug Resistant Organisms: None Reported Past Surgical History: No Surgical Hx Reported Additional Past Surgical History / Comment(s): Strabismus surgery as a child. Past Anesthesia/Blood Transfusion Reactions: No Reported Reaction Past Psychological History: Anxiety, Depression Smoking Status: Current every day smoker Past Alcohol Use History: Abuse, Daily, Heavy Additional Past Alcohol Use History / Comment(s): Patient is a smoker one pack per day since he was 13 years of age. He denies any street drug or marijuana use. He drinks 1/5one half gallon of liquor per day since he was 13 years of age. Past Drug Use History: None Reported - Past Family History Father Additional Family Medical History / Comment(s): Father is alive in his 50s with history of COPD. Sister(s) Additional Family Medical History / Comment(s): He has 5 sisters and one has drug abuse issues. Patient does not have any brothers. He has one 5-year-old daughter. Mother History Unknown: Yes Additional Family Medical History / Comment(s): Mother is alive in her 50s with no major medical problems. Medications and Allergies Home Medications Medication Instructions Recorded Confirmed Type Ibuprofen [Motrin] 800 mg PO TID PRN 09/30/18 09/30/18 History Omeprazole 20 mg PO DAILY PRN 09/30/18 09/30/18 History hydrOXYzine PAMOATE [Vistaril] 25 mg PO TID PRN 09/30/18 09/30/18 History traZODone HCL 200 mg PO HS 09/30/18 09/30/18 History Allergies Allergy/AdvReac Type Severity Reaction Status Date / Time No Known Allergies Allergy Verified 09/30/18 22:23 Physical Exam Vitals: Vital Signs Temp Pulse Pulse Resp BP BP Pulse Ox 10/01/18 07:00 98.4 F 56 L 16 113/69 99 10/01/18 01:30 51 L 17 10/01/18 01:09 98.1 F 51 L 17 105/62 98 10/01/18 00:47 97.5 F L 55 L 16 101/71 97 09/30/18 22:05 97.5 F L 58 L 18 111/78 100 Intake and Output 09/30/18 10/01/18 10/01/18 22:59 06:59 14:59 Intake Total 2440 Balance 2440 Intake: Intake, IV Titration 1640 Amount Sodium Chloride 0.9% 1, 640 000 ml @ 80 mls/hr IV . [id number] [facility] Rx#:[id number] Sodium Chloride 0.9% 1, 1000 000 ml @ 999 mls/hr IV . Q1H1M STA Rx#:[id number] Oral 800 Other: Voiding Method Urinal # Voids 1 Weight 59.421 kg GENERAL: The patient is alert and oriented x3, not in any acute distress. Well developed, well nourished. HEENT: Pupils are round and equally reacting to light. EOMI. No scleral icterus. No conjunctival pallor. Normocephalic, atraumatic. No pharyngeal erythema. No thyromegaly. CARDIOVASCULAR: S1 and S2 present. No murmurs, rubs, or gallops. PULMONARY: Chest is clear to auscultation, no wheezing or crackles. -ABDOMEN: Soft, mild epigastric tenderness with no rebound tenderness or guarding, nondistended, normoactive bowel sounds. No palpable organomegaly. MUSCULOSKELETAL: No joint swelling or deformity. EXTREMITIES: No cyanosis, clubbing, or pedal edema. NEUROLOGICAL: Gross neurological examination did not reveal any focal deficits. SKIN: No rashes. Results CBC & Chem 7: 09/30/18 23:00 09/30/18 23:00 Labs: Abnormal Lab Results - Last 24 Hours (Table) 09/30/18 09/30/18 Range/Units 23:00 23:00 Hct 38.8 L (39.0-53.0) % Plt Count 138 L (150-450) k/uL Potassium 3.4 L (3.5-5.1) mmol/L Creatinine 0.64 L (0.66-1.25) mg/dL Glucose 71 L (74-99) mg/dL Magnesium 1.2 L (1.6-2.3) mg/dL Assessment and Plan Assessment: Alcohol withdrawal Alcohol abuse Depression, anxiety and suicidal ideation. Psych consult has been called on admission Cough. Rule out influenza or pneumonia Heartburn Plan: This is a pleasant 38 years old male who presents with depression and alcohol abuse and withdrawal. Continue with CIWA protocol. continue with vitamins. Replace electrolytes. Pain management. Continue with hydration. Psych consult is been called on admission, follow-up with a recommendation. Labs and medication were reviewed.. Continue same treatment. Continue with symptomatic treatment. Resume home medication. Monitor lytes and vitals. DVT and GI prophylaxis. Further recommendations of the clinical course of the patient DVT prophylaxis: Subcutaneous heparin GI Prophylaxis: PROTONIX Prognosis is guarded
--- NOTE | 2018-10-01 09:42 | XR ---
EXAMINATION TYPE: XR chest 2V DATE OF EXAM: 10/01/2018 COMPARISON: 10/31/2017 HISTORY: Alcohol withdrawal, cough, rule out pneumonia. TECHNIQUE: Frontal and lateral views of the chest are obtained. FINDINGS: There is no focal air space opacity, pleural effusion, or pneumothorax seen. Minimal densi ty is seen at the periphery of the right minor fissure that could relate to atelectasis or scarring a s it abuts the pleural surface. The cardiac silhouette size is within normal limits. The osseous st ructures are intact. Minimal degenerative changes of the thoracic spine. IMPRESSION: No acute cardiopulmonary process. Minimal right midlung atelectasis or scarring along th e right minor fissure laterally.
[2018-10-01] MEDS: FOLIC ACID 1 MG TAB PO SCH (11:36)
[2018-10-01] MEDS: MULTIVITAMINS, THERA 1 EACH TAB PO SCH (11:36)
[2018-10-01 11:39] LABS: HGB 12.9 gm/dL (13.0-17.5); MCH 29.5 pg (25.0-35.0); MCHC 31.3 g/dL (31.0-37.0); MCV 94.1 fL (80.0-100.0); Mean Platelet Volume 8.1; Platelet Count 131 k/uL (150-450); RBC 4.36 m/uL (4.30-5.90); RDW 13.5 % (11.5-15.5); WBC 3.5 k/uL (3.8-10.6)
[2018-10-01 11:56] LABS: Anion Gap 7 mmol/L; Blood Urea Nitrogen 13 mg/dL (9-20); Calcium 8.7 mg/dL (8.4-10.2); Carbon Dioxide 21 mmol/L (22-30); Chloride 109 mmol/L (98-107); Glucose 117 mg/dL (74-99); Sodium 137 mmol/L (137-145)
--- NOTE | 2018-10-01 15:01 | P.CN ---
Psychiatric Consult - . Consult date: 10/01/18 Consult:: 10/01/18 10:19 Suicidal Assessment and Plan (1) Depression Narrative/Plan: This is a nervous 38 years old male with past medical history of seizure, anxiety and depression, relapse alcohol abuse, current cigarette smoker and marijuana abuse. Patient talks with the low voice, patient states he came to the hospital because of alcohol withdrawal. He states he drinks about a pint of liquor every day and his last drink was before coming to the hospital. Also he complains from heartburn and diarrhea about 2 times per day, but no overt abdominal pain other than that. No nausea vomiting. Also patient complaining of from cough with clear phlegm but no chest pain and patient does not dyspneic or tachypneic. Patient also states that he has significant history of depression and feels suicidal without a plan. Patient could not elaborate more. There is already a sister at bedside and psychiatry service has been called by emergency room team for consult Patient states is not on anti-seizure medication Alcohol level was 64 Past Medical History Past Medical History: No Reported History Additional Past Medical History / Comment(s): 1 seizure History of Any Multi-Drug Resistant Organisms: None Reported Past Surgical History: No Surgical Hx Reported Additional Past Surgical History / Comment(s): Strabismus surgery as a child. Past Anesthesia/Blood Transfusion Reactions: No Reported Reaction Past Psychological History: Anxiety, Depression Smoking Status: Current every day smoker Past Alcohol Use History: Abuse, Daily, Heavy Additional Past Alcohol Use History / Comment(s): Patient is a smoker one pack per day since he was 13 years of age. He denies any street drug or marijuana use. He drinks 1/5one half gallon of liquor per day since he was 13 years of age. Past Drug Use History: None Reported - Past Family History Father Additional Family Medical History / Comment(s): Father is alive in his 50s with history of COPD. Sister(s) Additional Family Medical History / Comment(s): He has 5 sisters and one has drug abuse issues. Patient does not have any brothers. He has one 5-year-old daughter. Mother History Unknown: Yes Additional Family Medical History / Comment(s): Mother is alive in her 50s with no major medical problems. Past psychiatric history: He reports that the onset of his depression was when he was a teenager. He did not receive treatment for depression until later in life but he was prescribed Adderall for ADHD when he was a teenager. He reports that Adderall helped him concentrate. He reports that it helped him have good grades and get a scholarship. He reports a history of depression but denies any history of manic episodes or hypomanic episodes. He denies any history of suicidal ideation or attempt, aggression, psychosis, violence, or abuse. He reports 2 other hospitalizations in the past. He apparently was admitted in this unit but could not recall when that was. Substance abuse history: He reports that he started drinking when he was 15 years old. He reports past sobriety. He had 5 DUIs. He denies illicit drug use. He has been to [facility] 7 times. The last time he was at [facility] was 6 months ago. He reports 2 months of sobriety after his last rehabilitation treatment. He smokes a pack a day. He does not intend to go back to rehab. He wants to return to work and states that he can be sober on his own. Past medications tried: Prozac, Effexor ALLERGIES: NO KNOWN DRUG ALLERGIES Past medical history: His AST is 212 and ALT is 124. He reports back pain. He states that he does not abuse his pain medications. Surgical history: " Suture and stuff." He reports that he was cross eyed as a kid and had surgery to correct that. Social history: He was born and raised in [place] and has a high school education. He and his girlfriend has been together for 7 years and they have a 5-year-old daughter. He reports that the cause of their fight is because his girlfriend has bipolar disorder. He is single. He has 5 sisters. His parents are alive. He reports having some family support when he is not using alcohol. He reports that he has no motivation when he is drinking. He reports that the only medication that helps him with depression is alcohol. 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 He described his childhood as decent. Family history: One of his sisters had problems with drugs and an uncle drinks. BAT 22:40/09/30/2018= 0.64 Medications and Allergies Home Medications Medication Instructions Recorded Confirmed Type Ibuprofen [Motrin] 800 mg PO TID PRN 09/30/18 09/30/18 History Omeprazole 20 mg PO DAILY PRN 09/30/18 09/30/18 History hydrOXYzine PAMOATE [Vistaril] 25 mg PO TID PRN 09/30/18 09/30/18 History traZODone HCL 200 mg PO HS 09/30/18 09/30/18 History Allergies Allergy/AdvReac Type Severity Reaction Status Date / Time No Known Allergies Allergy Verified 09/30/18 22:23 Mental Status Examination - General Appearance: [disheveled, bizarre, appears older than stated age Speech/Language: slow, rambled, mumbling, monotone, soft] Attitude/Behavior: guarded, withdrawn, indifferent] Mood: depressed, anxious, irritable, fearful, hopelessness Affect: [ flat, blunted constricte] Orientation: [time, person, place situation] Thought Content: [wnl, denies delusions, obsessions, phobias, other] Risk Factors: [Admits suicidal (ideations, plan), not Homicidal (ideations, plan), other] Perception: [wnl, denies hallucinations (auditory, visual, tactile), other] Thought Processes: [ concrete, circumstantial, tangential, other] Concentration/Attention Span: [impaired] [Per observation and interview with the patient] Recent Memory: [wnl, Remote Memory: [wnl] [past events, as related history] Intelligence: [below average] [based on history, based on vocabulary, syntax, grammar, and content] Judgement: [ poor] [per patient's behavior/history of present illness] Insight: [poor] [understanding severity of illness/history of present illness] Psychiatric impression: Depressive disorder with alcohol use disorder severe Psychiatric recommendation when medically stable transfer to [address] [place] [id number] for formal voluntary admission to also maintain sitter Thank you for the consult Fab Richardson D.O. PhD Current Visit: No Status: Acute Priority: High Code(s): F32.9 - MAJOR DEPRESSIVE DISORDER, SINGLE EPISODE, UNSPECIFIED SNOMED Code(s): 03526767 (2) Major depressive disorder, recurrent episode, severe Current Visit: No Status: Acute Priority: High Code(s): F33.2 - MAJOR DEPRESSV DISORDER, RECURRENT SEVERE W/O PSYCH FEATURES SNOMED Code(s): 569080197367
[2018-10-01] MEDS: traZODone HCL 100 MG TAB PO SCH (21:21)
[2018-10-01] MEDS: PANTOPRAZOLE 40 MG TABLET PO SCH (21:21)
[2018-10-01] MEDS: IBUPROFEN 800 MG TAB PO PRN (22:37)
[2018-10-01] MEDS: NICOTINE 21MG/24HR PATCH TRANSDERM SCH (22:38)
[2018-10-02] MEDS: SODIUM CHLORIDE 0.9% 1,000 ML IV SCH ×3 (01:15→20:24)
[2018-10-02] MEDS: THIAMINE 100 MG TAB PO SCH ×2 (07:37→17:04)
[2018-10-02] MEDS: PANTOPRAZOLE 40 MG TABLET PO SCH ×2 (07:37→22:40)
[2018-10-02] MEDS: NICOTINE 21MG/24HR PATCH TRANSDERM SCH (07:38)
[2018-10-02] MEDS: LORazepam 2 MG/ML INJ IV PRN ×6 (07:46→23:14)
[2018-10-02 08:09] LABS: Anion Gap 8 mmol/L; Blood Urea Nitrogen 15 mg/dL (9-20); Calcium 9.1 mg/dL (8.4-10.2); Carbon Dioxide 23 mmol/L (22-30); Chloride 110 mmol/L (98-107); Glucose 86 mg/dL (74-99); Magnesium 1.4 mg/dL (1.6-2.3); Potassium 4.1 mmol/L (3.5-5.1); Sodium 141 mmol/L (137-145)
[2018-10-02] MEDS ORDERED: Magnesium Replacement Protocol 1 EACH MISC MISCELLANE PRN (09:16)
--- NOTE | 2018-10-02 10:23 | P.PN ---
Subjective This is a pleasant 38 years old male with past medical history of seizure, anxiety and depression, alcohol abuse, current cigarette smoker and marijuana abuse. Patient was sleepy this morning and talks with the low voice, patient states he came to the hospital because of alcohol withdrawal. He states he drinks about a pint of liquor every day and his last drink was before coming to the hospital. Also he complains from heartburn and diarrhea about 2 times per day, but no overt abdominal pain other than that. No nausea vomiting. Also patient complaining of from cough with clear phlegm but no chest pain and patient does not dyspneic or tachypneic. Patient also states that he has significant history of depression and feels suicidal. Patient could not elaborate more. There is already a sister at bedside and psychiatry service has been called by emergency room team for consult Patient states is not on anti-seizure medication Patient is hemodynamically stable. Labs reviewed showing unremarkable CBC and BMP except for low potassium at 3.4 and magnesium at. Alcohol level was 64 10/02/2018 Patient is calm, lying in bed comfortable. when I walkd into the room, he was asleep in bed. Sitter at bedside. Patient is fully awake and oriented. Is less lethargic than yesterday. Still on CIWA protocol. And states his last drink was just before coming to the hospital, that's about 2 days ago. He needed one dose last night and wonders this morning of 1 mg of Ativan. His low magnesium is been replaced with parenteral magnesium sulfate. Psychiatric evaluation is appreciated he recommended transfer to psych units upon discharge for his suicidal ideation. Vitas looks stable. And patient denies chest pain or dyspnea. No abdominal pain. He is tolerating diet well. No diarrhea. Influenza was negative. Have discussed the management plan with the patient and the need to stay in the hospital and took her to the psych unit on his medically clear and he agrees. Possible discharge to psych unit in 24-48 hours. Review of systems CONSTITUTIONAL: No fever, no malaise, no fatigue. HEENT: No recent visual problems or hearing problems. Denied any sore throat. CARDIOVASCULAR: No orthopnea, PND, no palpitations, no syncope. PULMONARY: No shortness of breath, no cough, no hemoptysis. GASTROINTESTINAL: No diarrhea, no nausea, no vomiting, no abdominal pain. Normoactive bowel sounds. NEUROLOGICAL: No headaches, no weakness, no numbness. HEMATOLOGICAL: Denies any bleeding or petechiae. GENITOURINARY: Denies any burning micturition, frequency, or urgency. MUSCULOSKELETAL/RHEUMATOLOGICAL: Denies any joint pain, swelling, or any muscle pain. ENDOCRINE: Denies any polyuria or polydipsia. Medication: Folic acid, Motrin, Ativan as per [facility] protocol, magnesium sulfate, multivitamin, nicotine patch, Protonix, same, trazodone. Objective - Vital Signs Vital signs: Vital Signs Temp 97.7 F 10/02/18 07:47 Pulse 64 10/02/18 07:47 Resp 16 10/02/18 07:47 BP 115/73 10/02/18 07:47 Pulse Ox 98 10/02/18 07:47 Intake & Output 10/01/18 10/02/18 10/02/18 18:59 06:59 18:59 Intake Total 400 Balance 400 Intake: Oral 400 Other: Voiding Method Toilet Toilet Toilet Urinal # Voids 4 1 # Bowel Movements 4 - Exam GENERAL: The patient is alert and oriented x3, not in any acute distress. Well developed, well nourished. HEENT: Pupils are round and equally reacting to light. EOMI. No scleral icterus. No conjunctival pallor. Normocephalic, atraumatic. No pharyngeal erythema. No thyromegaly. CARDIOVASCULAR: S1 and S2 present. No murmurs, rubs, or gallops. PULMONARY: Chest is clear to auscultation, no wheezing or crackles. ABDOMEN: Soft, nontender, nondistended, normoactive bowel sounds. No palpable organomegaly. MUSCULOSKELETAL: No joint swelling or deformity. EXTREMITIES: No cyanosis, clubbing, or pedal edema. NEUROLOGICAL: Gross neurological examination did not reveal any focal deficits. SKIN: No rashes. - Labs CBC & Chem 7: 10/01/18 10:57 10/02/18 06:57 Labs: Abnormal Lab Results - Last 24 Hours (Table) 10/01/18 10/01/18 10/02/18 Range/Units 10:57 10:57 06:57 WBC 3.5 L (3.8-10.6) k/uL Hgb 12.9 L (13.0-17.5) gm/dL Plt Count 131 L (150-450) k/uL Chloride 109 H 110 H (98-107) mmol/L Carbon Dioxide 21 L (22-30) mmol/L Creatinine 0.65 L (0.66-1.25) mg/dL Glucose 117 H (74-99) mg/dL Magnesium 1.4 L (1.6-2.3) mg/dL Assessment and Plan Assessment: Alcohol withdrawal Alcohol abuse Depression, anxiety and suicidal ideation. Psych consult recommended psych admission Cough. With no evidence of influenza or pneumonia Heartburn Plan: This is a pleasant 38 years old male who presents with depression and alcohol abuse and withdrawal. Continue with CIWA protocol. continue with vitamins. R eplace electrolytes. Pain management. Continue with hydration. Psych consult is appreciated and they recommended to transfer patient to the psych unit upon medical clearance Labs and medication were reviewed.. Continue same treatment. Continue with symptomatic treatment. Resume home medication. Monitor lytes and vitals. DVT and GI prophylaxis. Further recommendations of the clinical course of the patient DVT prophylaxis: Subcutaneous heparin GI Prophylaxis: PROTONIX Prognosis is guarded
[2018-10-02] MEDS: MAGNESIUM SULFATE-D5W PMX 1 GM in DEXTROSE/WATER 1 100ML.BAG IVPB SCH ×5 (10:31→23:56)
[2018-10-02] MEDS: IBUPROFEN 800 MG TAB PO PRN (10:39)
[2018-10-02] MEDS: FOLIC ACID 1 MG TAB PO SCH (11:58)
[2018-10-02] MEDS: MULTIVITAMINS, THERA 1 EACH TAB PO SCH (11:58)
[2018-10-02] MEDS: traZODone HCL 100 MG TAB PO SCH (22:40)
[2018-10-02] MEDS: ARTIFICIAL TEARS-HYPROMELLOSE DROPS 15 ML BTL BOTH EYES PRN (22:45)
[2018-10-02] MEDS: MAGNESIUM OXIDE 400 MG TAB PO SCH (23:06)
[2018-10-02 23:42] LABS: Basophils % (A) 0 %; Eosinophils # (A) 0.2 k/uL (0-0.7); Eosinophils % (A) 6 %; HGB 12.8 gm/dL (13.0-17.5); Lymphocytes # (A) 1.5 k/uL (1.0-4.8); Lymphocytes % (A) 38 %; MCH 29.1 pg (25.0-35.0); MCHC 31.9 g/dL (31.0-37.0); MCV 91.3 fL (80.0-100.0); Mean Platelet Volume 8.4; Monocytes # (A) 0.1 k/uL (0-1.0); Monocytes % (A) 4 %; Neutrophils % (A) 51 %; Platelet Count 139 k/uL (150-450); RBC 4.38 m/uL (4.30-5.90); RDW 12.8 % (11.5-15.5); WBC 3.9 k/uL (3.8-10.6)
[2018-10-03] MEDS: LORazepam 2 MG/ML INJ IV PRN ×3 (02:06→11:47)
[2018-10-03 08:38] LABS: Anion Gap 8 mmol/L; Blood Urea Nitrogen 14 mg/dL (9-20); Calcium 8.9 mg/dL (8.4-10.2); Carbon Dioxide 22 mmol/L (22-30); Chloride 110 mmol/L (98-107); Glucose 101 mg/dL (74-99); Potassium 4.4 mmol/L (3.5-5.1); Sodium 140 mmol/L (137-145)
[2018-10-03] MEDS: NICOTINE 21MG/24HR PATCH TRANSDERM SCH (08:55)
[2018-10-03] MEDS: THIAMINE 100 MG TAB PO SCH ×2 (08:55→15:56)
[2018-10-03] MEDS: PANTOPRAZOLE 40 MG TABLET PO SCH ×2 (08:55→20:02)
[2018-10-03] MEDS: MAGNESIUM OXIDE 400 MG TAB PO SCH ×2 (09:17→20:02)
[2018-10-03] MEDS: MULTIVITAMINS, THERA 1 EACH TAB PO SCH (11:48)
[2018-10-03] MEDS: FOLIC ACID 1 MG TAB PO SCH (11:48)
[2018-10-03] MEDS: IBUPROFEN 800 MG TAB PO PRN (11:52)
[2018-10-03] MEDS: ARTIFICIAL TEARS-HYPROMELLOSE DROPS 15 ML BTL BOTH EYES PRN ×2 (11:54→19:03)
--- NOTE | 2018-10-03 12:42 | P.PN ---
Subjective This is a pleasant 38 years old male with past medical history of seizure, anxiety and depression, alcohol abuse, current cigarette smoker and marijuana abuse. Patient was sleepy this morning and talks with the low voice, patient states he came to the hospital because of alcohol withdrawal. He states he drinks about a pint of liquor every day and his last drink was before coming to the hospital. Also he complains from heartburn and diarrhea about 2 times per day, but no overt abdominal pain other than that. No nausea vomiting. Also patient complaining of from cough with clear phlegm but no chest pain and patient does not dyspneic or tachypneic. Patient also states that he has significant history of depression and feels suicidal. Patient could not elaborate more. There is already a sister at bedside and psychiatry service has been called by emergency room team for consult Patient states is not on anti-seizure medication Patient is hemodynamically stable. Labs reviewed showing unremarkable CBC and BMP except for low potassium at 3.4 and magnesium at. Alcohol level was 64 10/02/2018 Patient is calm, lying in bed comfortable. when I walkd into the room, he was asleep in bed. Sitter at bedside. Patient is fully awake and oriented. Is less lethargic than yesterday. Still on CIWA protocol. And states his last drink was just before coming to the hospital, that's about 2 days ago. He needed one dose last night and wonders this morning of 1 mg of Ativan. His low magnesium is been replaced with parenteral magnesium sulfate. Psychiatric evaluation is appreciated he recommended transfer to psych units upon discharge for his suicidal ideation. Vitas looks stable. And patient denies chest pain or dyspnea. No abdominal pain. He is tolerating diet well. No diarrhea. Influenza was negative. Have discussed the management plan with the patient and the need to stay in the hospital and took her to the psych unit on his medically clear and he agrees. Possible discharge to psych unit in 24-48 hours. 10/03/2018 Patient lying in bed not in distress. Has some tremor and sweating. Sitter at bedside. No chest pain and he denies dyspnea. He was fully awake and oriented but looks withdrawn. Patient still on CIWA protocol. He needed Ativan 5 times yesterday almost every 5 hours. Vitas is stable. Magnesium is 2.0. Rest of labs are unremarkable. Sitter still at bedside. Psych evaluation is apprec iated and the recommend transferring the patient to psych endocrine stable. We switched his Ativan doses from IV to oral, the patient tolerated that well possible discharge in 24-48 hours. Cough and heartburn are improving Objective - Vital Signs Vital signs: Vital Signs Temp 98.1 F 10/03/18 07:40 Pulse 77 10/03/18 07:40 Resp 15 10/03/18 07:40 BP 95/62 10/03/18 07:40 Pulse Ox 98 10/03/18 07:40 Intake & Output 10/02/18 10/03/18 10/03/18 18:59 06:59 18:59 Intake Total 1000 180 Balance 1000 180 Weight 59.421 kg Intake: Intake, IV Titration 1000 Amount Magnesium Sulfate-D5w Pmx 200 1 gm In Dextrose/Water 1 100ml.bag @ 100 mls/hr IVPB Q1H [facility] Rx#: [id number] Sodium Chloride 0.9% 1, 800 000 ml @ 80 mls/hr IV . [id number] [facility] Rx#:[id number] Oral 180 Other: Voiding Method Toilet Toilet # Voids 1 4 - Exam GENERAL: The patient is alert and oriented x3, not in any acute distress. Well developed, well nourished. HEENT: Pupils are round and equally reacting to light. EOMI. No scleral icterus. No conjunctival pallor. Normocephalic, atraumatic. No pharyngeal erythema. No thyromegaly. CARDIOVASCULAR: S1 and S2 present. No murmurs, rubs, or gallops. PULMONARY: Chest is clear to auscultation, no wheezing or crackles. ABDOMEN: Soft, nontender, nondistended, normoactive bowel sounds. No palpable organomegaly. MUSCULOSKELETAL: No joint swelling or deformity. EXTREMITIES: No cyanosis, clubbing, or pedal edema. NEUROLOGICAL: Gross neurological examination did not reveal any focal deficits. SKIN: No rashes. - Labs CBC & Chem 7: 10/02/18 23:30 10/03/18 07:43 Labs: Abnormal Lab Results - Last 24 Hours (Table) 10/02/18 10/03/18 Range/Units 23:30 07:43 Hgb 12.8 L (13.0-17.5) gm/dL Plt Count 139 L (150-450) k/uL Chloride 110 H (98-107) mmol/L Creatinine 0.64 L (0.66-1.25) mg/dL Glucose 101 H (74-99) mg/dL Assessment and Plan Assessment: Alcohol withdrawal Alcohol abuse Depression, anxiety and suicidal ideation. Psych consult recommended psych admission Cough. With no evidence of influenza or pneumonia. Improved Heartburn . Improved Plan: This is a pleasant 38 years old male who presents with depression and alcohol abuse and withdrawal. Continue with CIWA protocol. continue with vitamins. Replace electrolytes. Pain management. Continue with hydration. Psych consult is appreciated and they recommended to transfer patient to the psych unit upon medical clearance Labs and medication were reviewed.. Continue same treatment. Continue with sy mptomatic treatment. Resume home medication. Monitor lytes and vitals. DVT and GI prophylaxis. Further recommendations of the clinical course of the patient DVT prophylaxis: Subcutaneous heparin GI Prophylaxis: PROTONIX Prognosis is guarded
[2018-10-03] MEDS: LORazepam 1 MG TAB PO PRN ×3 (15:55→22:33)
[2018-10-03] MEDS: SODIUM CHLORIDE 0.9% 1,000 ML IV SCH (15:56)
[2018-10-03] MEDS: traZODone HCL 100 MG TAB PO SCH (20:02)
[2018-10-04 02:16] VITALS: RESP 17
[2018-10-04] MEDS: LORazepam 1 MG TAB PO PRN ×3 (03:07→15:51)
[2018-10-04] MEDS: SODIUM CHLORIDE 0.9% 1,000 ML IV SCH ×2 (03:10→17:33)
[2018-10-04] MEDS ORDERED: PANTOPRAZOLE 40 MG TABLET PO SCH (07:30)
[2018-10-04] MEDS: MAGNESIUM OXIDE 400 MG TAB PO SCH (10:19)
[2018-10-04] MEDS: FOLIC ACID 1 MG TAB PO SCH (10:20)
[2018-10-04] MEDS: MULTIVITAMINS, THERA 1 EACH TAB PO SCH (10:20)
[2018-10-04] MEDS: THIAMINE 100 MG TAB PO SCH ×2 (10:20→17:57)
[2018-10-04] MEDS: NICOTINE 21MG/24HR PATCH TRANSDERM SCH (10:21)
--- NOTE | 2018-10-04 11:07 | P.DS ---
Providers Date of admission: 10/01/18 00:14 Attending physician: Lisa Rahman Consults: 10/01/18 00:14 Consult Physician Routine Consulting Provider: Fab Richardson Consult Reason/Comments: suicidal ideation Do you want consulting provider notified?: Yes Primary care physician: Stated None Hospital Course: Diagnoses: Alcohol withdrawal Alcohol abuse Depression, anxiety and suicidal ideation. Psych consult recommended psych admission Cough. With no evidence of influenza or pneumonia. Improved Heartburn . Improved Hypomagnesemia. Resolved Hospital course This is a pleasant 38 years old male with past medical history of seizure, anxiety and depression, alcohol abuse, current cigarette smoker and marijuana abuse. Patient was sleepy this morning and talks with the low voice, patient states he came to the hospital because of alcohol withdrawal. He states he drinks about a pint of liquor every day and his last drink was before coming to the hospital. Also he complains from heartburn and diarrhea about 2 times per day, but no overt abdominal pain other than that. No nausea vomiting. Also patient complaining of from cough with clear phlegm but no chest pain and patient does not dyspneic or tachypneic. Patient also states that he has significant history of depression and feels suicidal. Patient was admitted to the hospital, he was treated with vitamins and Ativan as per CIWA protocol. And remained stable and improving, and he is requiring less doses of Ativan. Yesterday we switched him to the oral pills and had tolerated that well. He feels better. However he still is more benzodiazepines upon discharge. Patient has been evaluated by psychiatrist for his suicidal, he recommended transferring the patient to inpatient psychiatry's units upon discharge from the [facility]. Patient informed and he agrees with this. This morning patient denies chest pain or dyspnea. No abdominal pain. His heartburn has resolved. No headache. No change in urine or bowel habits. No more diarrhea. No fever. His CIWA score, and down from 6-8 down to 2-4. Patient's wants to go to the psych unit and he feels ready to go there today. Problems and management plan was discussed with the patient and he verbalized understanding and acceptance Patient was found stable and can be transferred to the psych unit however he needs follow-up as an outpatient. Patient was instructed to follow up with his PCP in 1-2 weeks and he agrees react he agrees to Patient could no refer him to Dr. Villasenor y discharge exam Gen: patient is a AAOx3, no distress CVS: S1-S2, RRR, no murmur Lungs: B/L CTA, no wheezing Abdomen: soft, no distention, no tenderness, positive bowel sounds Extremity: no leg edema or induration Time spent more than 35 minutes Patient Condition at Discharge: Fair Plan - Discharge Summary Discharge Rx Participant: Yes New Discharge Prescriptions: New Artificial Tears-Hypromellose [Artificial Tear Drops] 1 drops BOTH EYES TID PRN bottle PRN Reason: Dry Eye(S) LORazepam [Ativan] 1 mg PO Q6HR PRN tab PRN Reason: Alcohol Withdrawal Folic Acid 1 mg PO DAILY@1200 tab Nicotine 21Mg/24Hr Patch [Habitrol] 1 patch TRANSDERM DAILY patch Magnesium Oxide [Mag-Ox] 400 mg PO BID #10 tab Multivitamins, Thera [Multivitamin (formulary)] 1 each PO DAILY@1200 tab Pantoprazole [Protonix] 40 mg PO DAILY@0730 tablet. Thiamine [Vitamin B-1] 100 mg PO BID-W/MEALS tab Continue traZODone HCL 200 mg PO HS Ibuprofen [Motrin] 800 mg PO TID PRN PRN Reason: Pain cloNIDine HCL [Catapres] 0.1 mg PO DAILY PRN PRN Reason: Anxiety Discontinued hydrOXYzine PAMOATE [Vistaril] 25 mg PO TID PRN PRN Reason: Anxiety Omeprazole 20 mg PO DAILY PRN PRN Reason: GERD Discharge Medication List Ibuprofen [Motrin] 800 mg PO TID PRN 09/30/18 [History] traZODone HCL 200 mg PO HS 09/30/18 [History] cloNIDine HCL [Catapres] 0.1 mg PO DAILY PRN 10/01/18 [History] Artificial Tears-Hypromellose [Artificial Tear Drops] 1 drops BOTH EYES TID PRN bottle 10/04/18 [Rx] Folic Acid 1 mg PO DAILY@1200 tab 10/04/18 [Rx] LORazepam [Ativan] 1 mg PO Q6HR PRN tab 10/04/18 [Rx] Magnesium Oxide [Mag-Ox] 400 mg PO BID #10 tab 10/04/18 [Rx] Multivitamins, Thera [Multivitamin (formulary)] 1 each PO DAILY@1200 tab 10/04/18 [Rx] Nicotine 21Mg/24Hr Patch [Habitrol] 1 patch TRANSDERM DAILY patch 10/04/18 [Rx] Pantoprazole [Protonix] 40 mg PO DAILY@0730 tablet. 10/04/18 [Rx] Thiamine [Vitamin B-1] 100 mg PO BID-W/MEALS tab 10/04/18 [Rx] Follow up Appointment(s)/Referral(s): Yusef Hemphill MD [REFERRING] - 2 Weeks None,Stated [Primary Care Provider] - 1-2 days Activity/Diet/Wound Care/Special Instructions: cardiac diet activity as tolerated
[2018-10-04 13:53] VITALS: BP 99/68; PULSE 93; TEMP 98.4
--- NOTE | 2018-10-05 11:02 | CONS ---
CONSULTATION DATE OF SERVICE: 10/04/2018 PURPOSE FOR CONSULTATION: Evaluate for suicidality. HISTORY OF PRESENTING ILLNESS: This is a follow-up consultation from Dr. Richardson's initial psychiatric consultation of 10/01/2018. The patient was admitted for intoxication and for managing acute alcohol detoxification. He is diagnosed with alcohol withdrawal, alcohol dependence, depression, heartburn and hypomagnesemia. When he was seen by Dr. Richardson, Dr. Richardson noted that he gave a history of drinking one pint of alcohol per day. When he was admitted, he was reporting suicide thoughts without a plan. At that point, Dr. Richardson recommended medical stabilization and then transfer to the psychiatric unit. He also recommended having a 1:1 sitter. Through the course of the patient's hospitalization he has stabilized in regards to alcohol withdrawal. He has shown no indication for complications of withdrawal, including no indication for development of delirium tremens. Overall, his mood has improved. When I interviewed the patient, he said that he was distressed about his continued drinking. He has had a significant history of relapses, then will engage in treatment. He said that he had been using a program of AA and supports that had been helpful to him at different times. The main stress issue he was dealing with was that on September 30 his mother completely unexpectedly. She in the home where he was living. She apparently had a heart attack, and he had no awareness of the incident, as he was sleeping in another room. He only woke up at the point that an ambulance was there that had been called by a family member who had found the mother. His immediate concern was wanting to be discharged to be with the family for the preparations and . The patient stated to me when we talked that he had no thoughts of suicide. He said he anticipated getting back with his AA meetings and support group. He was able to give me details of the support group. He notes that he had previously been referred to [facility] in May. He made an initial appointment, though then did not follow up. He said he has intention at this time to get back to mental health as one additional support. He understands that he can walk in for an initial evaluation as soon as he is discharged. The medical staff was able to contact [facility] and verify that he would be able to be seen for followup. The structure from [facility] would be that he needs to make the contact and they would initiate an evaluation, which the patient anticipated to happen early in the week. The patient noted that his mood was improved. Staff had documented over the last 2 days that he was showing a fairly stable mood with positive reactions to visits from family. The patient had a good understanding of issues of subacute withdrawal. MENTAL STATUS: Patient was lying in bed. He sat up. He gave fairly good eye contact. Psychomotor activity was a little restless. He answered questions with direct responses. His thoughts were clear. His affect was somewhat blunted, though he did show some reasonable emotional reactivity. His mood was quiet, though he did not appear down or distressed. There was no indication of thought disorder. Cognition was clear. ASSESSMENT/RECOMMENDATIONS: I will continue the current diagnosis of subacute alcohol withdrawal, alcohol dependence, history of depression. At this point the patient is stable to be discharged. He has follow-up plans in place, including a support system that he had been working with prior to admission. He also indicated motivation to make contact with [facility] and understands that he can get in for an initial evaluation within the coming week. He has specific plans for activities over the next few days, namely helping in plans for his mother's . He has resolution of suicide thoughts and improvement in mood. He is stable for discharge. MMODL / IJN: [id number] /
== END 2018-10-04 18:00 | disposition home or self-care (01) | DRG 897 ==
LOC: EC 22:00 → 4SSUR 10-01 00:14
PROVIDERS: ADMIT Hospitalist; ATTEND Hospitalist
DX: F10.239 Alcohol dependence with withdrawal, unspecified (principal); F33.2 Major depressive disorder, recurrent severe without psychotic features; R45.851 Suicidal ideations; F41.9 Anxiety disorder, unspecified; R19.7 Diarrhea, unspecified; E83.42 Hypomagnesemia; F17.210 Nicotine dependence, cigarettes, uncomplicated; F10.229 Alcohol dependence with intoxication, unspecified; Y90.3 Blood alcohol level of 60-79 mg/100 ml; Z82.5 Family history of asthma and other chronic lower respiratory diseases
CPT/HCPCS: 36415; 71046; 80048; 80320; 82075; 83735; 85025; 85027; 87502; 96361; 96372; 96374; 99285

== ENCOUNTER 2018-12-10 11:04 | Observation (INO) | payer OTHER ==
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
[2018-12-10 12:30] LABS: Anisocytosis Slight; Basophils # (A) 0.1 k/uL (0-0.2); Basophils % (A) 2 %; Eosinophils # (A) 0.1 k/uL (0-0.7); Eosinophils % (A) 3 %; HCT 45.9 % (39.0-53.0); HGB 14.4 gm/dL (13.0-17.5); Lymphocytes # (A) 1.6 k/uL (1.0-4.8); Lymphocytes % (A) 49 %; MCH 30.3 pg (25.0-35.0); MCHC 31.3 g/dL (31.0-37.0); MCV 96.9 fL (80.0-100.0); Mean Platelet Volume 8.4; Monocytes # (A) 0.2 k/uL (0-1.0); Monocytes % (A) 6 %; Neutrophils # (A) 1.2 k/uL (1.3-7.7); Neutrophils % (A) 37 %; Platelet Count 173 k/uL (150-450); RBC 4.74 m/uL (4.30-5.90); RDW 16.2 % (11.5-15.5); WBC 3.3 k/uL (3.8-10.6)
[2018-12-10 13:28] LABS: African American GFR (CKD) >90 (>60 ml/min/1.73 sqM); Anion Gap 7 mmol/L; Blood Urea Nitrogen 10 mg/dL (9-20); Calcium 8.6 mg/dL (8.4-10.2); Carbon Dioxide 34 mmol/L (22-30); Chloride 105 mmol/L (98-107); Glucose 108 mg/dL (74-99); Potassium 4.9 mmol/L (3.5-5.1); Sodium 146 mmol/L (137-145)
[2018-12-10 13:39] LABS: Alcohol 285 mg/dL
[2018-12-10] MEDS ORDERED: NALOXONE 0.4 MG/ML 1 ML VIAL IV PRN (14:15)
[2018-12-10] MEDS ORDERED: SODIUM CHLORIDE 0.9% 1,000 ML IV SCH (14:15)
[2018-12-10] MEDS ORDERED: THIAMINE 100 MG/ML 2 ML VIAL IM STA (14:18)
[2018-12-10] MEDS ORDERED: LORazepam 2 MG/ML INJ IV PRN ×2 (14:18)
[2018-12-10] MEDS ORDERED: SODIUM CHLORIDE 0.9% 1,000 ML IV STA (14:19)
[2018-12-10] MEDS ORDERED: NICOTINE 14MG/24HR PATCH TRANSDERM STA (14:26)
[2018-12-10] MEDS ORDERED: LORazepam 2 MG/ML INJ IV STA ×2 (14:33→17:29)
[2018-12-10] MEDS ORDERED: MORPHINE SULFATE 2 MG/ML SYRINGE IVP STA (17:29)
[2018-12-10] MEDS ORDERED: ONDANSETRON 4 MG/2 ML VIAL IVP PRN (17:48)
--- NOTE | 2018-12-10 17:49 | P.HPIM ---
History of Present Illness H&P Date: 12/10/18 Chief Complaint: Alcohol withdrawal 38-year-old male with PMH of anxiety, ADHD and chronic alcohol use presents to the ED intoxicated and for suicidal ideation. Patient reports his last drink to be this morning. Patient states that he only drank a little bit this morning. Patient reports drinking a fifth of vodka on a daily basis. He is unable to quantify how long he has been drinking for, but states years. Patient also reports alcohol induced seizures, states that his last seizure was one month ago. Patient reports losing about 30 pounds recently and also being under some considerable stress with the health of his parents. Patient reports falling recently and hitting his jaw. Patient states that he is not being able to eat because of his right jaw pain. Per ED report, there was some concerns for suicidal ideation. Patient adamantly denies any suicidal i deation at this time but does complain of hearing voices, which are nonspecific. He also reports nausea and vomiting that has been ongoing for the past weeks, associated with his alcohol intake. He denies any headache, lower extremity edema, fever or chills, cough, chest pain, shortness of breath, palpitations, changes in urination or bowel habits. No changes in appetite or weight. In the ED, patient was found to have a serum alcohol of 285. Vital signs were stable. CBC showed leukopenia with WBC count of 3.3. CMP showed sodium of 146, HCO3 of 34. Patient is admitted for alcohol intoxication, impending withdrawals and for suicidal ideation. Review of Systems Pertinent positives and negatives as discussed in HPI, a complete review of syst ems was performed and all other systems are negative. Past Medical History Past Medical History: COPD Additional Past Medical History / Comment(s): Alcoholism History of Any Multi-Drug Resistant Organisms: None Reported Past Surgical History: No Surgical Hx Reported Additional Past Surgical History / Comment(s): Strabismus surgery as a child-Left eye surgery Past Anesthesia/Blood Transfusion Reactions: No Reported Reaction Past Psychological History: Anxiety, Bipolar, Depression Additional Psychological History / Comment(s): Patient states he has been diagnosed with bipolar Smoking Status: Current every day smoker Past Alcohol Use History: Abuse, Daily, Heavy Additional Past Alcohol Use History / Comment(s): Patient is a smoker one pack per day since he was 13 years of age. He denies any street drug or marijuana use. He drinks one pint of liquor per day since he was 13 years of age. Past Drug Use History: None Reported - Past Family History Father Additional Family Medical History / Comment(s): Father is alive in his 50s with history of COPD. Sister(s) Additional Family Medical History / Comment(s): He has 5 sisters and one has drug abuse issues. Patient does not have any brothers. He has one 5-year-old daughter. Mother History Unknown: Yes Additional Family Medical History / Comment(s): Mother is alive in her 50s with no major medical problems. Medications and Allergies Home Medications Medication Instructions Recorded Confirmed Type cloNIDine HCL [Catapres] 0.1 mg PO DAILY PRN 10/01/18 12/10/18 History Folic Acid 1 mg PO DAILY 30 Days #30 tablet 10/04/18 12/10/18 Rx Ibuprofen [Motrin] 800 mg PO TID PRN 3 Days #0 10/04/18 12/10/18 Rx Magnesium Oxide [Mag-Ox] 400 mg PO BID 5 Days #10 tablet 10/04/18 12/10/18 Rx Thiamine [Vitamin B-1] 100 mg PO DAILY 30 Days #30 tablet 10/04/18 12/10/18 Rx Dextroamphetamine/Amphetamine 20 mg PO BID 12/10/18 12/10/18 History [Adderall] Nicotine 21Mg/24Hr Patch [Habitrol] 1 patch TRANSDERM DAILY 12/10/18 12/10/18 History Omeprazole 20 mg PO DAILY 12/10/18 12/10/18 History clonazePAM [KlonoPIN] 1 mg PO BID 12/10/18 12/10/18 History traZODone HCL 300 mg PO HS 12/10/18 12/10/18 History Allergies Allergy/AdvReac Type Severity Reaction Status Date / Time No Known Allergies Allergy Verified 09/30/18 22:23 Physical Exam Vitals: Vital Signs Temp Pulse Pulse Resp BP BP Pulse Ox 12/10/18 16:42 98.8 F 81 16 104/72 99 12/10/18 15:19 72 16 123/76 98 12/10/18 11:05 98.9 F 67 16 115/79 98 Intake and Output 12/10/18 12/10/18 12/10/18 06:59 14:59 22:59 Other: Weight 63.503 kg General: [non toxic], [fine tremors of the hand], [appears at stated age] Derm: [warm], [dry] Head: [atraumatic], [normocephalic], [tenderness of the temporomandibular joint on the right side] Eyes: [EOMI], [no lid lag], [anicteric sclera] Mouth: [no lip lesion], [mucus membranes moist] Cardiovascular: [S1S2 reg], [no murmur], [positive DP pulse bilateral] Lungs: [CTA bilateral], [no rhonchi, no rales] , [no accessory muscle use] Abdominal: [soft], [ nontender to palpation], [no guarding], [no appreciable organomegaly] Ext: [no gross muscle atrophy], [no edema], [no contractures] Neuro: [ CN II-XI grossly intact], [no focal neuro deficits] Psych: [Alert], [oriented], [appropriate affect] Results CBC & Chem 7: 12/10/18 12:08 12/10/18 13:10 Labs: Abnormal Lab Results - Last 24 Hours (Table) 12/10/18 12/10/18 Range/Units 12:08 13:10 WBC 3.3 L (3.8-10.6) k/uL RDW 16.2 H (11.5-15.5) % Neutrophils # 1.2 L (1.3-7.7) k/uL Sodium 146 H (137-145) mmol/L Carbon Dioxide 34 H (22-30) mmol/L Glucose 108 H (74-99) mg/dL Serum Alcohol 285 H* mg/dL Thrombosis Risk Factor Assmnt - Choose All That Apply Any of the Below Risk Factors Present?: Yes Each Factor Represents 1 point: Abnormal pulmonary function (COPD) Other Risk Factors: No Other congenital or acquired thrombophilia - If yes, enter type in comment: No Thrombosis Risk Factor Assessment Total Risk Factor Score: 1 Thrombosis Risk Factor Assessment Level: Low Risk Assessment and Plan Assessment: Assessment and Plan Alcohol intoxication, impending withdrawals with history of alcohol-induced seizures Right-sided jaw pain Suicidal ideation Leukopenia Alcohol level 285. History of seizures from alcohol withdrawal. Plans: CIWA protocol. Ativan as needed for withdrawal. Start folate acid and thiamine. Will check LFT tomorrow in order to start Librium. Fall and seizure precautions. Zofran as needed for nausea or vomiting. Start Protonix by mouth. Plans: Morphine as needed for pain or discomfort. Follow facial x-ray. As reported in ED. Plans: Follow psychiatry consultation. One-to-one sitter. WBC count 3.3. Likely secondary to alcohol use. Daily CBC. Patient admitted for alcohol intoxication, impending withdrawals and suicidal ideation. Psychiatry is consulted. Sitter at bedside. DVT prophylaxis: [SCD boots] Discussed with: [Patient] Anticipated discharge: [1-2 days] Anticipated discharge place: [Home] A total of [45] minutes was spent on the care of this complex patient more than 50% of the time was spent in counseling and care coordination.
--- NOTE | 2018-12-10 19:13 | XR ---
EXAMINATION TYPE: XR facial bones limited DATE OF EXAM: 12/10/2018 COMPARISON: NONE HISTORY: Right-sided facial pain and swelling TECHNIQUE: 2 views submitted FINDINGS: Osseous structures intact. No definite acute fracture. IMPRESSION: No definite acute fracture or dislocation. If symptoms persist correlate with CT scan.
[2018-12-10] MEDS: MAGNESIUM OXIDE 400 MG TAB PO SCH (20:51)
[2018-12-10] MEDS: clonazePAM 1 MG TAB PO SCH (20:51)
[2018-12-10] MEDS: LORazepam 2 MG/ML INJ IV PRN (21:08)
[2018-12-10] MEDS: MORPHINE SULFATE 2 MG/ML SYRINGE IVP PRN (21:12)
[2018-12-11 04:52] VITALS: RESP 16
[2018-12-11] MEDS: MORPHINE SULFATE 2 MG/ML SYRINGE IVP PRN ×2 (05:53→11:06)
[2018-12-11] MEDS ORDERED: THIAMINE 100 MG TAB PO SCH ×2 (07:30→09:00)
[2018-12-11] MEDS ORDERED: PANTOPRAZOLE 40 MG TABLET PO SCH (07:30)
[2018-12-11] MEDS: clonazePAM 1 MG TAB PO SCH (07:48)
[2018-12-11] MEDS: MAGNESIUM OXIDE 400 MG TAB PO SCH (07:48)
[2018-12-11] MEDS ORDERED: NICOTINE 21MG/24HR PATCH TRANSDERM SCH (09:00)
[2018-12-11] MEDS ORDERED: FOLIC ACID 1 MG TAB PO SCH (09:00)
[2018-12-11 09:49] LABS: HCT 37.6 % (39.0-53.0); HGB 11.9 gm/dL (13.0-17.5); MCH 30.3 pg (25.0-35.0); MCHC 31.7 g/dL (31.0-37.0); MCV 95.7 fL (80.0-100.0); Mean Platelet Volume 7.9; Platelet Count 138 k/uL (150-450); RBC 3.93 m/uL (4.30-5.90); RDW 15.7 % (11.5-15.5); WBC 3.4 k/uL (3.8-10.6)
[2018-12-11] MEDS: LORazepam 2 MG/ML INJ IV PRN (10:01)
[2018-12-11 10:09] LABS: ALT 19 U/L (21-72); AST 41 U/L (17-59); African American GFR (CKD) >90 (>60 ml/min/1.73 sqM); Albumin 3.2 g/dL (3.5-5.0); Alkaline Phosphatase 42 U/L (38-126); Anion Gap 5 mmol/L; Blood Urea Nitrogen 16 mg/dL (9-20); Calcium 8.4 mg/dL (8.4-10.2); Carbon Dioxide 26 mmol/L (22-30); Chloride 108 mmol/L (98-107); Glucose 133 mg/dL (74-99); Potassium 3.9 mmol/L (3.5-5.1); Sodium 139 mmol/L (137-145); Total Bilirubin 0.5 mg/dL (0.2-1.3); Total Protein 5.8 g/dL (6.3-8.2)
[2018-12-11] MEDS ORDERED: HYDROcodone/APAP 5-325MG 1 EACH TAB PO PRN (13:21)
[2018-12-11] MEDS ORDERED: ALBUTEROL NEBULIZED 2.5 MG/3 ML INHALATION PRN (13:21)
[2018-12-11] MEDS ORDERED: ALBUTEROL NEBULIZED 2.5 MG/3 ML INHALATION STA (13:21)
--- NOTE | 2018-12-11 13:28 | P.DS ---
Providers Date of admission: 12/10/18 14:15 Expected date of discharge: 12/11/18 Attending physician: Emerald Brady MD Consults: 12/10/18 14:16 Consult Physician Routine Consulting Provider: Linda Rubi Consult Reason/Comments: suicidal Do you want consulting provider notified?: Yes Primary care physician: Stated None Hospital Course: 38-year-old male with PMH of anxiety, ADHD and chronic alcohol use presents to the ED intoxicated and for suicidal ideation. Patient reports his last drink to be this morning. Patient states that he only drank a little bit this morning. Patient reports drinking a fifth of vodka on a daily basis. He is unable to quantify how long he has been drinking for, but states years. Patient also reports alcohol induced seizures, states that his last seizure was one month ago. Patient reports losing about 30 pounds recently and also being under some considerable stress with the health of his parents. Patient reports falling recently and hitting his jaw. Patient states that he is not being able to eat because of his right jaw pain. Per ED report, there was some concerns for suicidal ideation. Patient adamantly denies any suicidal ideation at this time but does complain of hearing voices, which are nonspecific. He also reports nausea and vomiting that has been ongoing for the past weeks, associated with his alcohol intake. He denies any headache, lower extremity edema, fever or chills, cough, chest pain, shortness of breath, palpitations, changes in urination or bowel habits. No changes in appetite or weight. In the ED, patient was found to have a serum alcohol of 285. Vital signs were stable. CBC showed leukopenia with WBC count of 3.3. CMP showed sodium of 146, HCO3 of 34. Patient is admitted for alcohol intoxication, impending withdrawals and for suicidal ideation. Patient was placed on CIWA protocol. He was given Ativan as needed for withdrawal symptoms. He was started on folic acid and thiamine. Patient was placed on fall and seizure precautions. With regard to his right-sided jaw pain, x-rays were obtained which excluded fracture. Patient was noted to have leukopenia with a WBC count of 3.3 which was likely secondary to alcohol abuse. Patient was seen and examined. No acute events overnight. Patient continues to complain of right-sided jaw pain. Patient has a number of requests. Requesting stitches in his face to be removed. Requesting Adderall and Klonopin prescriptions for when he goes home. Requesting inhaler prescription. Also requesting breathing treatment now. General: [non toxic], [no tremors], [appears at stated age] Derm: [warm], [dry] Head: [atraumatic], [normocephalic], [tenderness of the temporomandibular joint on the right side] Eyes: [EOMI], [no lid lag], [anicteric sclera] Mouth: [no lip lesion], [mucus membranes moist] Cardiovascular: [S1S2 reg], [no murmur], [positive DP pulse bilateral] Lungs: [CTA bilateral], [no rhonchi, no rales] , [no accessory muscle use] Abdominal: [soft], [ nontender to palpation], [no guarding], [no appreciable organomegaly] Ext: [no gross muscle atrophy], [no edema], [no contractures] Neuro: [no focal neuro deficits] Psych: [Alert], [oriented], [appropriate affect] Assessment and Plan Alcohol intoxication, impending withdrawals with history of alcohol-induced seizures Right-sided jaw pain Suicidal ideation Leukopenia Alcohol level 285. History of seizures from alcohol withdrawal. Plans: CIWA protocol. Ativan as needed for withdrawal. Start folate acid and thiamine. Fall and seizure precautions. Zofran as needed for nausea or vomiting. Start Protonix by mouth. Facial x-ray negative. Plans: Change morphine to [place]. As reported in ED. Plans: Follow psychiatry consultation. One-to-one sitter. WBC count 3.3-3.4. Likely secondary to alcohol use. Daily CBC. [Patient admitted for alcohol intoxication, impending withdrawals and suicidal ideation. Denies suicidal ideation and is pending evaluation by Psychiatry. Sitter at bedside. Likely DC if cleared by psychiatry.] Pertinent Studies: Jaw x-ray Patient Condition at Discharge: Stable Plan - Discharge Summary New Discharge Prescriptions: Continue cloNIDine HCL [Catapres] 0.1 mg PO DAILY PRN PRN Reason: Anxiety Folic Acid 1 mg PO DAILY 30 Days #30 tablet Magnesium Oxide [Mag-Ox] 400 mg PO BID 5 Days #10 tablet Thiamine [Vitamin B-1] 100 mg PO DAILY 30 Days #30 tablet Ibuprofen [Motrin] 800 mg PO TID PRN 3 Days #0 PRN Reason: Pain traZODone HCL 300 mg PO HS Nicotine 21Mg/24Hr Patch [Habitrol] 1 patch TRANSDERM DAILY Omeprazole 20 mg PO DAILY No Action clonazePAM [KlonoPIN] 1 mg PO BID Dextroamphetamine/Amphetamine [Adderall] 20 mg PO BID Discharge Medication List cloNIDine HCL [Catapres] 0.1 mg PO DAILY PRN 10/01/18 [History] Folic Acid 1 mg PO DAILY 30 Days #30 tablet 10/04/18 [Rx] Ibuprofen [Motrin] 800 mg PO TID PRN 3 Days #0 10/04/18 [Rx] Magnesium Oxide [Mag-Ox] 400 mg PO BID 5 Days #10 tablet 10/04/18 [Rx] Thiamine [Vitamin B-1] 100 mg PO DAILY 30 Days #30 tablet 10/04/18 [Rx] Dextroamphetamine/Amphetamine [Adderall] 20 mg PO BID 12/10/18 [History] Nicotine 21Mg/24Hr Patch [Habitrol] 1 patch TRANSDERM DAILY 12/10/18 [History] Omeprazole 20 mg PO DAILY 12/10/18 [History] clonazePAM [KlonoPIN] 1 mg PO BID 12/10/18 [History] traZODone HCL 300 mg PO HS 12/10/18 [History] Follow up Appointment(s)/Referral(s): None,Stated [Primary Care Provider] - 1-2 days Activity/Diet/Wound Care/Special Instructions: Diet: Regular Follow-up PCP within 1-2 days of discharge. Follow-up with your psychiatrist within 1 week of discharge. Take all medications as advised. Please refrain from drinking alcohol. Discharge Disposition: HOME SELF-CARE
[2018-12-11 14:24] VITALS: BP 109/75; PULSE 91; TEMP 98.2
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
== END 2018-12-11 14:57 | disposition home or self-care (01) ==
LOC: EC 11:04 → 4MS4W 14:15
PROVIDERS: ADMIT Internal Medicine; ATTEND Internal Medicine
DX: F10.220 Alcohol dependence with intoxication, uncomplicated (principal); F10.288 Alcohol dependence with other alcohol-induced disorder; R45.851 Suicidal ideations; Y90.8 Blood alcohol level of 240 mg/100 ml or more; F41.9 Anxiety disorder, unspecified; F31.9 Bipolar disorder, unspecified; F17.210 Nicotine dependence, cigarettes, uncomplicated; F90.9 Attention-deficit hyperactivity disorder, unspecified type; R44.0 Auditory hallucinations; D72.819 Decreased white blood cell count, unspecified; E87.0 Hyperosmolality and hypernatremia; J44.9 Chronic obstructive pulmonary disease, unspecified; R11.2 Nausea with vomiting, unspecified; R68.84 Jaw pain; S01.81XD Laceration without foreign body of other part of head, subsequent encounter; V00.831D Fall from motorized mobility scooter, subsequent encounter; Z79.899 Other long term (current) drug therapy; Z86.69 Personal history of other diseases of the nervous system and sense organs; Z82.5 Family history of asthma and other chronic lower respiratory diseases; Z81.3 Family history of other psychoactive substance abuse and dependence
CPT/HCPCS: 96376 ×2; 96361 ×3; 96375; 82075; 96374; 99285; 36415; 80053; 80048; 85025; 85027; 70140; G0378 ×2; G0480; S4990 ×2; J2060 ×2; J2270 ×2; 80320

== ENCOUNTER 2019-01-08 16:50 | Observation (INO) | payer OTHER ==
[2019-01-08 17:00] VITALS: RESP 16
--- NOTE | 2019-01-08 18:53 | CT ---
EXAMINATION TYPE: CT brain aleks orourke con DATE OF EXAM: 01/08/2019 COMPARISON: HISTORY: ETOH. Fall. CT DLP: 1351.5 mGycm, Automated exposure control for dose reduction was used. CONTRAST: Patient injected with mL of . CT of the brain is performed utilizing 3 mm thick sections through the posterior fossa and 3 mm thick sections through the remaining calvarium. Study is performed within 24 hours of arrival to the hospital. No abnormal hyperdensity is present to suggest an acute intracranial hemorrhage. No mass lesion is evident. No acute infarcts are evident. Ventricles and sulci are appropriate for the patient age. Paranasal sinuses and mastoid air cells within the [id number] are clear. IMPRESSIONS: 1. Normal CT brain. CT cervical spine. COMPARISON: None CT of the cervical spine is performed in the axial plane at 2 mm thick sections. Reconstructed image s in the coronal, and sagittal plane are reviewed on the computer. No acute fractures are evident. Vertebral body alignment is normal. There is loss of disc height posteriorly at C3-4 and T1-T2. Anterior vertebral body spurring at T1-2 is present. Posterior endplate spurring is present C3-4 with mild anterior thecal sac compression and left and right paracentral regions. Vertebral body heights are preserved. No spinal canal stenosis is evident. No neural foraminal stenosis is evident. IMPRESSIONS: 1. Degenerative disc changes C3-4 and T1-T2.
[2019-01-08 18:59] LABS: Basophils # (A) 0.1 k/uL (0-0.2); Basophils % (A) 2 %; Eosinophils # (A) 0.2 k/uL (0-0.7); Eosinophils % (A) 5 %; HCT 39.5 % (39.0-53.0); HGB 13.4 gm/dL (13.0-17.5); Lymphocytes # (A) 2.2 k/uL (1.0-4.8); Lymphocytes % (A) 51 %; MCH 31.3 pg (25.0-35.0); MCHC 33.9 g/dL (31.0-37.0); MCV 92.3 fL (80.0-100.0); Mean Platelet Volume 6.8; Monocytes # (A) 0.2 k/uL (0-1.0); Monocytes % (A) 5 %; Neutrophils # (A) 1.5 k/uL (1.3-7.7); Neutrophils % (A) 35 %; Platelet Count 242 k/uL (150-450); RBC 4.28 m/uL (4.30-5.90); RDW 15.3 % (11.5-15.5); WBC 4.4 k/uL (3.8-10.6)
[2019-01-08 19:09] LABS: ALT 22 U/L (21-72); AST 35 U/L (17-59); African American GFR (CKD) >90 (>60 ml/min/1.73 sqM); Albumin 4.7 g/dL (3.5-5.0); Alkaline Phosphatase 39 U/L (38-126); Anion Gap 12 mmol/L; Blood Urea Nitrogen 22 mg/dL (9-20); Calcium 9.5 mg/dL (8.4-10.2); Carbon Dioxide 24 mmol/L (22-30); Chloride 109 mmol/L (98-107); Glucose 71 mg/dL (74-99); Potassium 4.2 mmol/L (3.5-5.1); Sodium 145 mmol/L (137-145); Total Bilirubin 0.4 mg/dL (0.2-1.3); Total Protein 7.9 g/dL (6.3-8.2)
[2019-01-08 19:12] LABS: Alcohol 290 mg/dL
[2019-01-08] MEDS ORDERED: NALOXONE 0.4 MG/ML 1 ML VIAL IV PRN (20:50)
[2019-01-08] MEDS ORDERED: THIAMINE 100 MG/ML 2 ML VIAL IM STA (20:53)
[2019-01-08] MEDS ORDERED: IBUPROFEN 800 MG TAB PO PRN (20:53)
[2019-01-08] MEDS ORDERED: cloNIDine HCL 0.1 MG TAB PO PRN (20:53)
[2019-01-08] MEDS ORDERED: LORazepam 2 MG/ML INJ IV PRN ×2 (20:53)
[2019-01-08] MEDS ORDERED: traZODone HCL 100 MG TAB PO SCH (21:00)
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
[2019-01-08] MEDS: THIAMINE 100 MG TAB PO SCH ×2 (21:59→22:01)
[2019-01-08 23:25] VITALS: BMI 18.6
[2019-01-08] MEDS: SODIUM CHLORIDE 0.9% 1,000 ML IV SCH (23:34)
[2019-01-09] MEDS: busPIRone HCl 10 MG TAB PO SCH ×2 (00:06→09:02)
[2019-01-09] MEDS ORDERED: HYDROcodone/APAP 5-325MG 1 EACH TAB PO PRN (00:26)
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
[2019-01-09] MEDS: LORazepam 2 MG/ML INJ IV PRN ×3 (02:10→09:10)
[2019-01-09 05:02] VITALS: TEMP 98.1
[2019-01-09] MEDS ORDERED: PANTOPRAZOLE 40 MG TABLET PO SCH (07:30)
[2019-01-09] MEDS ORDERED: HEPARIN SODIUM,PORCINE 5,000 UNIT/ML 1 ML VIAL SQ SCH (08:00)
[2019-01-09] MEDS ORDERED: NICOTINE 21MG/24HR PATCH TRANSDERM SCH (09:00)
[2019-01-09] MEDS: THIAMINE 100 MG TAB PO SCH (09:02)
[2019-01-09] MEDS: SODIUM CHLORIDE 0.9% 1,000 ML IV SCH (09:04)
--- NOTE | 2019-01-09 11:17 | P.PN ---
Subjective Progress Note Date: 01/09/19 Principal diagnosis: Alcohol intoxication Patient was seen and examined. No acute events overnight. Patient reports feeling shaky. States the he takes trazodone for sleep, Adderall for ADHD and Klonopin for anxiety since the passing of his mother. States that he ran out of his medications and started drinking. Patient reports being sober for around 2 weeks prior to running out of his medications. He goes to [facility] and has seen a psychiatrist in the past. States that his current PCP is unable to prescribe these medications for him and thus led to relapse of alcohol. He denies any suicidal or homicidal ideation. He denies any auditory or visual hallucinations. He denies any chest pain, shortness of breath or palpitations. No nausea or vomiting. No fever or chills. Complains of jaw pain. States that he is trying to look for a new PCP, wants to see Dr. Gay in [place]. Objective - Vital Signs Vital signs: Vital Signs Temp 98.1 F 01/09/19 05:00 Pulse 78 01/09/19 05:00 Resp 16 01/09/19 05:00 BP 121/71 01/09/19 05:00 Pulse Ox 97 01/09/19 05:00 Intake & Output 01/08/19 01/09/19 01/09/19 18:59 06:59 18:59 Intake Total 1500 Balance 1500 Weight 63.503 kg Intake: Intake, IV Titration 900 Amount Sodium Chloride 0.9% 1, 900 000 ml @ 100 mls/hr IV . Q10H [facility] Rx#:[id number] Oral 600 Other: Voiding Method Toilet Urinal - Exam General: [non toxic], [no distress], [appears at stated age] Derm: [warm], [dry] Head: [atraumatic], [normocephalic], [symmetric] Eyes: [EOMI], [no lid lag], [anicteric sclera] Mouth: [no lip lesion], [mucus membranes moist] Cardiovascular: [S1S2 reg], [no murmur], [positive DP pulse bilateral] Lungs: [CTA bilateral], [no rhonchi, no rales] , [no accessory muscle use] Abdominal: [soft], [ nontender to palpation], [no guarding], [no appreciable organomegaly] Ext: [no gross muscle atrophy], [no edema], [no contractures] Neuro: [no focal neuro deficits] Psych: [Alert], [oriented], [appropriate affect] - Labs CBC & Chem 7: 01/08/19 18:50 01/08/19 18:50 Labs: Abnormal Lab Results - Last 24 Hours (Table) 01/08/19 01/08/19 Range/Units 18:50 18:50 RBC 4.28 L (4.30-5.90) m/uL Chloride 109 H (98-107) mmol/L BUN 22 H (9-20) mg/dL Glucose 71 L (74-99) mg/dL Serum Alcohol 290 H* mg/dL Assessment and Plan Assessment: Assessment and Plan Acute alcohol intoxication ADHD and sleep disturbance Anxiety Blood alcohol was 290 on admission. Appears sober. Most recent CIWA score is 5-6. Plans: CIWA protocol. Ativan as needed. Multivitamin. Thiamine. Folic acid. Patient advised to quit. Patient reports previously being on Adderall and trazodone. Plans: Will check MAPS for verification. Patient denies suicidal or homicidal ideations, auditory or visual hallucinations. Patient reports previously being on Klonopin. Plans: Ativan as needed for anxiety. [Patient states he started drinking after running out of his home medication of Adderall, Klonopin and trazodone. Review of MAPS show a 2 week prescription for Klonopin and Adderall on 12/26/2018. He was seen at [facility] and discharge with the above medication and told to follow-up with his PCP. He had been going to his PCP but also unable to prescribe his medications. Attempting to reconnect with another PCP in [place] Dr. Gay.] His story checks out with MAPS. He was given 2 weeks of Adderall and Klonopin on December 26 and has run out. He was unable to see his PCP for refills of either medication. Patient appears stable. We will discharge patient home with an appointment with PCP Dr. Gay. He'll be given 2 weeks of Adderall, Klonopin, trazodone. Patient states that he is motivated to quit drinking alcohol and states that he will sign up for outpatient rehab.
[2019-01-09 11:51] VITALS: BP 110/70; PULSE 94
[2019-01-09] MEDS ORDERED: clonazePAM 1 MG TAB PO STA (11:58)
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
== END 2019-01-09 13:26 | disposition home or self-care (01) ==
LOC: EC 16:50 → 3NMEDONC 20:50
PROVIDERS: ADMIT Internal Medicine; ATTEND Internal Medicine
DX: F10.229 Alcohol dependence with intoxication, unspecified (principal); R68.84 Jaw pain; G89.29 Other chronic pain; F90.9 Attention-deficit hyperactivity disorder, unspecified type; F31.9 Bipolar disorder, unspecified; G47.9 Sleep disorder, unspecified; F41.9 Anxiety disorder, unspecified; Y90.8 Blood alcohol level of 240 mg/100 ml or more; R63.4 Abnormal weight loss; F17.210 Nicotine dependence, cigarettes, uncomplicated; J44.9 Chronic obstructive pulmonary disease, unspecified; Z79.899 Other long term (current) drug therapy; Z79.1 Long term (current) use of non-steroidal anti-inflammatories (NSAID); Z87.828 Personal history of other (healed) physical injury and trauma; Z82.5 Family history of asthma and other chronic lower respiratory diseases; Z81.3 Family history of other psychoactive substance abuse and dependence
CPT/HCPCS: 96376; 96372; 96374; 99285; 36415; 80053; 83690; 85025; 72125; 70450; G0378 ×2; G0480; S4990; J2060 ×2; J3411; 80320

== ENCOUNTER 2019-01-21 23:48 | Observation (INO) | payer OTHER ==
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
[2019-01-22 00:08] LABS: Basophils # (A) 0.1 k/uL (0-0.2); Basophils % (A) 1 %; Eosinophils # (A) 0.1 k/uL (0-0.7); Eosinophils % (A) 2 %; HCT 38.3 % (39.0-53.0); HGB 13.2 gm/dL (13.0-17.5); Lymphocytes # (A) 2.5 k/uL (1.0-4.8); Lymphocytes % (A) 58 %; MCH 31.3 pg (25.0-35.0); MCHC 34.4 g/dL (31.0-37.0); MCV 91.1 fL (80.0-100.0); Mean Platelet Volume 7.5; Monocytes # (A) 0.2 k/uL (0-1.0); Monocytes % (A) 4 %; Neutrophils # (A) 1.4 k/uL (1.3-7.7); Neutrophils % (A) 33 %; Platelet Count 165 k/uL (150-450); RDW 15.6 % (11.5-15.5); WBC 4.4 k/uL (3.8-10.6)
[2019-01-22 00:16] LABS: ALT 11 U/L (21-72); AST 36 U/L (17-59); African American GFR (CKD) >90 (>60 ml/min/1.73 sqM); Albumin 4.6 g/dL (3.5-5.0); Alkaline Phosphatase 40 U/L (38-126); Anion Gap 14 mmol/L; Blood Urea Nitrogen 16 mg/dL (9-20); Calcium 9.1 mg/dL (8.4-10.2); Carbon Dioxide 24 mmol/L (22-30); Chloride 108 mmol/L (98-107); Glucose 114 mg/dL (74-99); Potassium 3.9 mmol/L (3.5-5.1); Sodium 146 mmol/L (137-145); Total Bilirubin 0.4 mg/dL (0.2-1.3); Total Protein 7.9 g/dL (6.3-8.2)
[2019-01-22 00:28] LABS: Alcohol 360 mg/dL
[2019-01-22] MEDS ORDERED: SODIUM CHLORIDE 0.9% 1,000 ML IV STA (00:51)
[2019-01-22] MEDS ORDERED: NALOXONE 0.4 MG/ML 1 ML VIAL IV PRN (00:51)
[2019-01-22] MEDS ORDERED: THIAMINE 100 MG/ML 2 ML VIAL IM STA (00:55)
[2019-01-22] MEDS ORDERED: cloNIDine HCL 0.1 MG TAB PO PRN (00:55)
[2019-01-22] MEDS ORDERED: LORazepam 2 MG/ML INJ IV PRN ×3 (00:55)
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
[2019-01-22] MEDS ORDERED: HEPARIN SODIUM,PORCINE 5,000 UNIT/ML 1 ML VIAL SQ SCH (08:00)
[2019-01-22] MEDS ORDERED: SODIUM CHLORIDE 0.9% 1,000 ML IV SCH (08:30)
[2019-01-22] MEDS: SODIUM CHLORIDE 0.9% 1,000 ML IV SCH ×2 (08:47→10:06)
[2019-01-22] MEDS ORDERED: busPIRone HCl 10 MG TAB PO SCH (09:00)
[2019-01-22] MEDS ORDERED: LORazepam 2 MG/ML INJ IV STA (09:57)
[2019-01-22 14:26] VITALS: BP 110/69; PULSE 50; RESP 15; TEMP 97.9
[2019-01-22] MEDS ORDERED: THIAMINE 100 MG TAB PO SCH (17:00)
== END 2019-01-22 15:03 | disposition left against medical advice (07) ==
LOC: EC 23:48 → 4SSUR 01-22 00:56
PROVIDERS: ADMIT Internal Medicine; ATTEND Internal Medicine
DX: F10.229 Alcohol dependence with intoxication, unspecified (principal); T50.906A Underdosing of unspecified drugs, medicaments and biological substances, initial encounter; J44.9 Chronic obstructive pulmonary disease, unspecified; F31.9 Bipolar disorder, unspecified; F41.9 Anxiety disorder, unspecified; R45.6 Violent behavior; Z78.1 Physical restraint status; Y90.8 Blood alcohol level of 240 mg/100 ml or more; F17.210 Nicotine dependence, cigarettes, uncomplicated; Z79.899 Other long term (current) drug therapy; Z79.891 Long term (current) use of opiate analgesic; Z79.1 Long term (current) use of non-steroidal anti-inflammatories (NSAID); Z82.5 Family history of asthma and other chronic lower respiratory diseases; Z81.3 Family history of other psychoactive substance abuse and dependence; Z53.21 Procedure and treatment not carried out due to patient leaving prior to being seen by health care provider
CPT/HCPCS: 96374; 99285; 36415; 80053; 85025; G0378; G0480; J2060; 80320

== ENCOUNTER 2019-01-27 16:01 | Observation (INO) | payer OTHER ==
[2019-01-27 17:34] LABS: Basophils # (A) 0.1 k/uL (0-0.2); Basophils % (A) 1 %; Eosinophils % (A) 1 %; HCT 39.4 % (39.0-53.0); HGB 13.4 gm/dL (13.0-17.5); Lymphocytes # (A) 1.5 k/uL (1.0-4.8); Lymphocytes % (A) 26 %; MCH 30.9 pg (25.0-35.0); MCV 90.8 fL (80.0-100.0); Mean Platelet Volume 7.5; Monocytes # (A) 0.2 k/uL (0-1.0); Monocytes % (A) 3 %; Neutrophils # (A) 3.8 k/uL (1.3-7.7); Neutrophils % (A) 69 %; Platelet Count 150 k/uL (150-450); RBC 4.33 m/uL (4.30-5.90); RDW 15.7 % (11.5-15.5); WBC 5.6 k/uL (3.8-10.6)
[2019-01-27 17:37] LABS: Appearance,Urine Clear (Clear); Bilirubin,Urine Negative (Negative); Blood,Urine Small (Negative); Color,Urine Yellow; Glucose,Urine (UA) Negative (Negative); Hyaline Casts,Urine 4 /lpf (0-2); Ketones,Urine Trace (Negative); Leukocyte Esterase,Urine Negative (Negative); Mucus,Urine Few /hpf; Nitrite,Urine Negative (Negative); Protein,Urine 2+ (Negative); RBC,Urine 1 /hpf (0-5); Specific Gravity,Urine 1.015 (1.001-1.035); Urobilinogen,Urine <2.0 mg/dL (<2.0); WBC,Urine 1 /hpf (0-5)
[2019-01-27 17:43] LABS: ALT 44 U/L (21-72); AST 109 U/L (17-59); African American GFR (CKD) >90 (>60 ml/min/1.73 sqM); Albumin 4.8 g/dL (3.5-5.0); Alkaline Phosphatase 61 U/L (38-126); Anion Gap 20 mmol/L; Blood Urea Nitrogen 16 mg/dL (9-20); Calcium 8.9 mg/dL (8.4-10.2); Carbon Dioxide 22 mmol/L (22-30); Chloride 102 mmol/L (98-107); Glucose 89 mg/dL (74-99); Potassium 3.9 mmol/L (3.5-5.1); Sodium 144 mmol/L (137-145); Total Bilirubin 0.3 mg/dL (0.2-1.3); Total Protein 8.3 g/dL (6.3-8.2)
[2019-01-27 17:46] LABS: Amphetamine Screen,Urine Not Detected (NotDetected); Barbiturate Screen,Urine Not Detected (NotDetected); Benzodiazepines Screen,Urine Not Detected (NotDetected); Cocaine Screen,Urine Not Detected (NotDetected); Methadone Screen, Urine Not Detected (NotDetected); Opiate Screen,Urine Not Detected (NotDetected); Oxycodone Screen, Urine Not Detected (NotDetected); Phencyclidine Screen,Urine Not Detected (NotDetected); Tricyclic Antidepressant,Urine Not Detected (NotDetected); Urn Cannabinoid Scrn Not Detected (NotDetected)
[2019-01-27] MEDS ORDERED: LORazepam 2 MG/ML INJ IV PRN (17:49)
[2019-01-27] MEDS ORDERED: THIAMINE 100 MG/ML 2 ML VIAL IM STA (17:49)
--- NOTE | 2019-01-27 18:07 | ED ---
Psych HPI - General Chief Complaint: Psychiatric Symptoms Stated Complaint: Mental Health Time Seen by Provider: 01/27/19 16:49 Source: patient Mode of arrival: EMS - History of Present Illness Initial Comments: 38-year-old male presenting today for chief complaint of a call intoxication and suicidal ideation. Patient states that he has been heavily drinking recently states it is killing himself. He states he has a plan for suicide but will not disclose. Patient denies any homicidal ideation. Patient states he was drinking heavily yesterday believes he is withdrawing. Patient has tremors on history taking. Patient denies a chest pain shortness of breath hallucinations vomiting diarrhea, abdominal pain or any other complaints. Upon arrival patient VS stable, appears intoxicated. - Related Data Home Medications Medication Instructions Recorded Confirmed Omeprazole 20 mg PO DAILY 12/10/18 01/27/19 busPIRone HCl [Buspar] 10 mg PO TID 01/08/19 01/27/19 HYDROcodone/APAP 5-325MG [[place] 1 tab PO Q6H PRN 01/22/19 01/27/19 5-325] Previous Rx's Medication Instructions Recorded Ibuprofen [Motrin] 800 mg PO TID PRN 3 Days #0 10/04/18 Dextroamphetamine/Amphetamine 20 mg PO BID #30 tab 01/09/19 [Adderall] clonazePAM [KlonoPIN] 1 mg PO BID #30 tab 01/09/19 traZODone HCL 300 mg PO HS #15 tab 01/09/19 Allergies Allergy/AdvReac Type Severity Reaction Status Date / Time No Known Allergies Allergy Verified 01/22/19 07:49 Review of Systems ROS Statement: Those systems with pertinent positive or pertinent negative responses have been documented in the HPI. ROS Other: All systems not noted in ROS Statement are negative. Past Medical History Past Medical History: COPD Additional Past Medical History / Comment(s): Alcoholism History of Any Multi-Drug Resistant Organisms: None Reported Past Surgical History: No Surgical Hx Reported Additional Past Surgical History / Comment(s): Strabismus surgery as a child- Left eye surgery Past Anesthesia/Blood Transfusion Reactions: No Reported Reaction Past Psychological History: Anxiety, Bipolar, Depression Smoking Status: Current every day smoker Past Alcohol Use History: Abuse, Daily, Heavy Past Drug Use History: None Reported - Past Family History Father Additional Family Medical History / Comment(s): Father is alive in his 50s with history of COPD. Sister(s) Additional Family Medical History / Comment(s): He has 5 sisters and one has drug abuse issues. Patient does not have any brothers. He has one 5-year-old daughter. Mother History Unknown: Yes Additional Family Medical History / Comment(s): Mother is alive in her 50s with no major medical problems. General Exam - General Exam Comments Initial Comments: General: The patient is awake and alert, in no distress, and does not appear acutely ill. Eye: +4 mm pupils are equal, round and reactive to light, extra-ocular movements are intact. No nystagmus. There is normal conjunctiva bilaterally. No signs of icterus. Ears, nose, mouth and throat: There are moist mucous membranes and no oral lesions. Neck: The neck is supple, there is no tenderness or JVD. Cardiovascular: There is a regular rate and rhythm. No murmur, rub or gallop is appreciated. Respiratory: Lungs are clear to auscultation, respirations are non-labored, breath sounds are equal. No wheezes, stridor, rales, or rhonchi. Gastrointestinal: Soft, non-distended, non-tender abdomen without masses or organomegaly noted. There is no rebound or guarding present. Musculoskeletal: Normal ROM, no tenderness. Strength 5/5. Sensation intact. Pulses equal bilaterally 2+. Neurological: A&O x 3. CN II-XII intact, There are no obvious motor or sensory deficits. Coordination appears grossly intact. Speech is normal. Skin: Skin is warm and dry and no rashes or lesions are noted. B/l hand tremors. Psychiatric: Cooperative, appropriate mood & affect, normal judgment. Limitations: no limitations Course Vital Signs 01/27/19 01/27/19 16:21 21:00 Temperature 98.7 F Pulse Rate 90 90 Respiratory 16 18 Rate Blood Pressure 113/79 119/67 O2 Sat by Pulse 96 98 Oximetry Medical Decision Making - Medical Decision Making 38-year-old male presented for chief complaint of alcohol intoxication and suicidal ideation. Heavily drinking yesterday. Denies drinking today. POC blood alcohol .309. Patient will be admitted for ETOH intoxication, placed on CIWA/withdrawal protocols. Patient denies homicial ideations. Spoke with Dr. Shahid who spoke with Dr. Rahman for admission, admission accepted. Psych on consult. Patient states he voluntarily wanted a psychiatric evaluation. - Lab Data Result diagrams: 01/27/19 17:20 01/27/19 17:20 Lab Results 01/27/19 01/27/19 01/27/19 Range/Units 17:20 17:20 17:20 WBC 5.6 (3.8-10.6) k/uL RBC 4.33 (4.30-5.90) m/uL Hgb 13.4 (13.0-17.5) gm/dL Hct 39.4 (39.0-53.0) % MCV 90.8 (80.0-100.0) fL MCH 30.9 (25.0-35.0) pg MCHC 34.0 (31.0-37.0) g/dL RDW 15.7 H (11.5-15.5) % Plt Count 150 (150-450) k/uL Neutrophils % 69 % Lymphocytes % 26 % Monocytes % 3 % Eosinophils % 1 % Basophils % 1 % Neutrophils # 3.8 (1.3-7.7) k/uL Lymphocytes # 1.5 (1.0-4.8) k/uL Monocytes # 0.2 (0-1.0) k/uL Eosinophils # 0.0 (0-0.7) k/uL Basophils # 0.1 (0-0.2) k/uL Sodium 144 (137-145) mmol/L Potassium 3.9 (3.5-5.1) mmol/L Chloride 102 (98-107) mmol/L Carbon Dioxide 22 (22-30) mmol/L Anion Gap 20 mmol/L BUN 16 (9-20) mg/dL Creatinine 0.92 (0.66-1.25) mg/dL Est GFR (CKD-EPI)AfAm >90 (>60 ml/min/1.73 sqM) Est GFR (CKD-EPI)NonAf >90 (>60 ml/min/1.73 sqM) Glucose 89 (74-99) mg/dL Calcium 8.9 (8.4-10.2) mg/dL Total Bilirubin 0.3 (0.2-1.3) mg/dL AST 109 H (17-59) U/L ALT 44 (21-72) U/L Alkaline Phosphatase 61 (38-126) U/L Total Protein 8.3 H (6.3-8.2) g/dL Albumin 4.8 (3.5-5.0) g/dL Urine Color Yellow Urine Appearance Clear (Clear) Urine pH 6.0 (5.0-8.0) Ur Specific [place] 1.015 (1.001-1.035) Urine Protein 2+ H (Negative) Urine Glucose (UA) Negative (Negative) Urine Ketones Trace H (Negative) Urine Blood Small H (Negative) Urine Nitrite Negative (Negative) Urine Bilirubin Negative (Negative) Urine Urobilinogen <2.0 (<2.0) mg/dL Ur Leukocyte Esterase Negative (Negative) Urine RBC 1 (0-5) /hpf Urine WBC 1 (0-5) /hpf Hyaline Casts 4 H (0-2) /lpf Urine Mucus Few H (None) /hpf Urine Opiates Screen Not Detected (NotDetected) Ur Oxycodone Screen Not Detected (NotDetected) Urine Methadone Screen Not Detected (NotDetected) Ur Propoxyphene Screen Not Detected (NotDetected) Ur Barbiturates Screen Not Detected (NotDetected) U Tricyclic Antidepress Not Detected (NotDetected) Ur Phencyclidine Scrn Not Detected (NotDetected) Ur Amphetamines Screen Not Detected (NotDetected) U Methamphetamines Scrn Not Detected (NotDetected) U Benzodiazepines Scrn Not Detected (NotDetected) Urine Cocaine Screen Not Detected (NotDetected) U Marijuana (THC) Screen Not Detected (NotDetected) Disposition Clinical Impression: Alcohol intoxication, Suicidal ideation Disposition: ADMITTED IP TO THIS [facility] Condition: Serious Is patient prescribed a controlled substance at d/c from ED?: No Time of Disposition: 18:15 Decision to Admit Reason: Admit from EC Decision Date: 01/27/19 Decision Time: 18:15
[2019-01-27] MEDS ORDERED: NALOXONE 0.4 MG/ML 1 ML VIAL IV PRN (18:15)
[2019-01-27] MEDS: LORazepam 2 MG/ML INJ IV PRN ×3 (18:29→23:54)
[2019-01-27] MEDS: SODIUM CHLORIDE 0.9% 1,000 ML IV SCH (21:54)
[2019-01-28] MEDS: LORazepam 2 MG/ML INJ IV PRN ×10 (02:10→20:59)
[2019-01-28] MEDS: THIAMINE 100 MG TAB PO SCH ×2 (08:41→17:46)
[2019-01-28] MEDS: SODIUM CHLORIDE 0.9% 1,000 ML IV SCH ×2 (08:41→22:06)
[2019-01-28] MEDS ORDERED: HYDROcodone/APAP 5-325MG 1 EACH TAB PO PRN (11:24)
[2019-01-28] MEDS ORDERED: PANTOPRAZOLE 40 MG TABLET PO SCH (11:28)
[2019-01-28] MEDS: busPIRone HCl 10 MG TAB PO SCH ×3 (11:41→20:59)
[2019-01-28] MEDS: NON FORMULARY DRUG (Dextroamphetamine/Amphetamine [Adderall] 20 MG) PO SCH ×2 (11:44→22:06)
[2019-01-28 14:53] VITALS: BMI 21.5
[2019-01-28 19:46] VITALS: BP 108/63; PULSE 73; RESP 18; TEMP 99.1
[2019-01-28] MEDS ORDERED: traZODone HCL 100 MG TAB PO SCH (21:00)
--- NOTE | 2019-01-28 23:06 | P.HPIM ---
History of Present Illness H&P Date: 01/28/19 Chief Complaint: Acute alcohol intoxication Patient is a 38-year-old male with a known history of alcohol abuse, COPD, nicotine addiction and anxiety/depression and bipolar disorder was brought to the hospital due to alcohol intoxication and suicidal ideation. Patient has b een drinking heavily recently and stated that he'll try to kill himself. Patient admits to ER physician that he had a plan but will not disclose. Otherwise denied any muscle ideation. Patient still having shakiness and is requesting Ativan. Denied any complaints of chest pain, shortness of breath. No nausea vomiting or diarrhea. No cough is from production. No fever no chills. Review of Systems Constitutional: Patient denies any fever or chills . No generalized weakness or weight loss. Abdomen: Patient denied nausea vomiting and diarrhea and abdominal pain. Cardiovascular: Patient denies any chest pain or short of breath no palpitations . Respiratory: patient denied any cough is from production. No shortness of breath Neurologic: Patient denied any numbness or tingling headache. Musculoskeletal: Patient denies any complaints of joint swelling or deformity. Skin: Negative Psychiatric: Anxious Endocrine: No heat or cold intolerance. No recent weight gain. Genitourinary: No dysuria or hematuria. All other 14 point ROS negative except the above Past Medical History Past Medical History: COPD Additional Past Medical History / Comment(s): Alcoholism History of Any Multi-Drug Resistant Organisms: None Reported Past Surgical History: No Surgical Hx Reported Additional Past Surgical History / Comment(s): Strabismus surgery as a child- Left eye surgery Past Anesthesia/Blood Transfusion Reactions: No Reported Reaction Past Psychological History: Anxiety, Bipolar, Depression Smoking Status: Current every day smoker Past Alcohol Use History: Abuse, Daily, Heavy Past Drug Use History: None Reported - Past Family History Father Additional Family Medical History / Comment(s): Father is alive in his 50s with history of COPD. Sister(s) Additional Family Medical History / Comment(s): He has 5 sisters and one has drug abuse issues. Patient does not have any brothers. He has one 5-year-old daughter. Mother History Unknown: Yes Additional Family Medical History / Comment(s): Mother is alive in her 50s with no major medical problems. Medications and Allergies Home Medications Medication Instructions Recorded Confirmed Type Ibuprofen [Motrin] 800 mg PO TID PRN 3 Days #0 10/04/18 01/27/19 Rx Omeprazole 20 mg PO DAILY 12/10/18 01/27/19 History busPIRone HCl [Buspar] 10 mg PO TID 01/08/19 01/27/19 History Dextroamphetamine/Amphetamine 20 mg PO BID #30 tab 01/09/19 01/27/19 Rx [Adderall] clonazePAM [KlonoPIN] 1 mg PO BID #30 tab 01/09/19 01/27/19 Rx traZODone HCL 300 mg PO HS #15 tab 01/09/19 01/27/19 Rx HYDROcodone/APAP 5-325MG [[place] 1 tab PO Q6H PRN 01/22/19 01/27/19 History 5-325] Allergies Allergy/AdvReac Type Severity Reaction Status Date / Time No Known Allergies Allergy Verified 01/22/19 07:49 Physical Exam Vitals: Vital Signs Temp Pulse Pulse Resp BP BP Pulse Ox 01/28/19 08:45 98.0 F 80 16 106/78 96 01/28/19 03:51 18 01/28/19 01:52 97.7 F 103 H 18 110/71 98 01/27/19 23:12 15 01/27/19 22:52 98.8 F 97 16 110/68 96 01/27/19 21:00 90 18 119/67 98 01/27/19 16:21 98.7 F 90 16 113/79 96 Intake and Output 01/27/19 01/28/19 01/28/19 22:59 06:59 14:59 Intake Total 700 100 Balance 700 100 Intake: Intake, IV Titration 600 Amount Sodium Chloride 0.9% 1, 600 000 ml @ 75 mls/hr IV . [id number] [facility] Rx#:[id number] Oral 100 100 Other: Voiding Method Toilet # Voids 1 Weight 68.039 kg PHYSICAL EXAMINATION: Patient is lying in the bed comfortably, no acute distress, awake alert and oriented.. HEENT: Normocephalic. Neck is supple. Pupils reactive. Nostrils clear. Oral cavity is moist. Ears reveal no drainage. Neck reveals no JVD, carotid bruits, or thyromegaly. CHEST EXAMINATION: Trachea is central. Symmetrical expansion. Lung carson clear to auscultation and percussion. CARDIAC: Normal S1, S2 with no gallops. No murmurs ABDOMEN: Soft. Bowel sounds normal. No organomegaly. No abdominal bruits. Extremities: reveal no edema. No clubbing or cyanosis Neurologically awake, alert, oriented x3 with well-coordinated movements. Tremors of bilateral hands. No focal deficits noted Skin: No rash or skin lesions. Psychiatric: Coperative. Denied any suicidal ideation currently. Musculoskeletal: No joint swelling or deformity. Normal range of motion. Results CBC & Chem 7: 01/27/19 17:20 01/27/19 17:20 Labs: Abnormal Lab Results - Last 24 Hours (Table) 01/27/19 01/27/19 01/27/19 Range/Units 17:20 17:20 17:20 RDW 15.7 H (11.5-15.5) % AST 109 H (17-59) U/L Total Protein 8.3 H (6.3-8.2) g/dL Urine Protein 2+ H (Negative) Urine Ketones Trace H (Negative) Urine Blood Small H (Negative) Hyaline Casts 4 H (0-2) /lpf Urine Mucus Few H (None) /hpf Serum Alcohol mg/dL 01/27/19 Range/Units 19:00 RDW (11.5-15.5) % AST (17-59) U/L Total Protein (6.3-8.2) g/dL Urine Protein (Negative) Urine Ketones (Negative) Urine Blood (Negative) Hyaline Casts (0-2) /lpf Urine Mucus (None) /hpf Serum Alcohol 284 H* mg/dL Thrombosis Risk Factor Assmnt - DVT/VTE Prophylaxis DVT/VTE Prophylaxis: Pharmacologic Prophylaxis ordered - Choose All That Apply Any of the Below Risk Factors Present?: No Other Risk Factors: No Other congenital or acquired thrombophilia - If yes, enter type in comment: No Thrombosis Risk Factor Assessment Level: Very Low Risk Assessment and Plan Assessment: Acute alcohol intoxication Acute alcohol withdrawal symptoms Suicidal ideation Severe alcohol abuse History of nicotine addiction COPD stable Bipolar disorder, anxiety/depression DVT prophylaxis Plan: Patient will be continued on IV hydration. Continue with Thiamine and multivitamins. Continue with [facility] protocol for alcohol withdrawal symptoms. Monitor closely and continue with constant observer at bedside. Psychiatry was consulted for further evaluation. Patient was counseled extensively. Time with Patient: Greater than 30
[2019-01-29] MEDS ORDERED: PANTOPRAZOLE 40 MG TABLET PO SCH (07:30)
[2019-01-29] MEDS ORDERED: HEPARIN SODIUM,PORCINE 5,000 UNIT/ML 1 ML VIAL SQ SCH (09:00)
== END 2019-01-28 23:19 ==
LOC: EC 16:01 → 4SSUR 18:25
PROVIDERS: ADMIT Hospitalist; ATTEND Hospitalist
DX: F10.229 Alcohol dependence with intoxication, unspecified (principal); F10.239 Alcohol dependence with withdrawal, unspecified; R45.851 Suicidal ideations; R25.1 Tremor, unspecified; J44.9 Chronic obstructive pulmonary disease, unspecified; F31.9 Bipolar disorder, unspecified; F41.9 Anxiety disorder, unspecified; F17.200 Nicotine dependence, unspecified, uncomplicated; Z79.891 Long term (current) use of opiate analgesic; Z79.899 Other long term (current) drug therapy; Z81.3 Family history of other psychoactive substance abuse and dependence; Z82.5 Family history of asthma and other chronic lower respiratory diseases
CPT/HCPCS: 96376 ×3; 96361; 96374; 99285; 36415; 82075; 80053; 85025; 81001; 80306; G0378 ×2; G0480; J2060 ×2; 80320

== ENCOUNTER 2019-01-28 21:36 | Inpatient (IN) | payer MEDICAID ==
[2019-01-28] MEDS ORDERED: ACETAMINOPHEN TAB 325 MG TAB PO PRN (23:59)
[2019-01-28] MEDS ORDERED: MAG HYDROX/AL HYDROX/SIMETH 30 ML CUP PO PRN (23:59)
[2019-01-28] MEDS ORDERED: MAGNESIUM HYDROXIDE 2,400 MG/10 ML CUP PO PRN (23:59)
[2019-01-28] MEDS ORDERED: ZIPRASIDONE 20 MG VIAL IM PRN (23:59)
[2019-01-29] MEDS ORDERED: clonazePAM 0.5 MG TAB PO SCH (09:00)
[2019-01-29] MEDS ORDERED: busPIRone HCl 10 MG TAB PO SCH (09:00)
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
[2019-01-29] MEDS: NICOTINE 14MG/24HR PATCH TRANSDERM SCH (09:32)
[2019-01-29] MEDS: PANTOPRAZOLE 40 MG TABLET PO SCH (09:33)
[2019-01-29] MEDS: MULTIVITAMINS, THERA 1 EACH TAB PO SCH (09:33)
[2019-01-29] MEDS: THIAMINE 100 MG TAB PO SCH (09:33)
[2019-01-29] MEDS: LORazepam 1 MG TAB PO PRN ×3 (09:36→17:58)
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
[2019-01-29] MEDS: HYDROcodone/APAP 5-325MG 1 EACH TAB PO PRN ×2 (16:03→22:01)
[2019-01-29] MEDS: LORazepam 1 MG TAB PO SCH ×2 (16:03→21:22)
[2019-01-29] MEDS: traZODone HCL 100 MG TAB PO SCH (21:22)
[2019-01-29] MEDS: NYSTATIN 100,000 UNIT/GM POWD 15 GM TOPICAL SCH (21:22)
[2019-01-30] MEDS: LORazepam 1 MG TAB PO PRN ×4 (02:26→18:06)
[2019-01-30] MEDS: HYDROcodone/APAP 5-325MG 1 EACH TAB PO PRN ×3 (06:17→18:03)
[2019-01-30] MEDS: THIAMINE 100 MG TAB PO SCH (08:47)
[2019-01-30] MEDS: NICOTINE 14MG/24HR PATCH TRANSDERM SCH (08:47)
[2019-01-30] MEDS: PANTOPRAZOLE 40 MG TABLET PO SCH (08:47)
[2019-01-30] MEDS: LORazepam 1 MG TAB PO SCH ×3 (08:47→21:47)
[2019-01-30] MEDS: MULTIVITAMINS, THERA 1 EACH TAB PO SCH (08:47)
[2019-01-30] MEDS: NYSTATIN 100,000 UNIT/GM POWD 15 GM TOPICAL SCH ×2 (08:56→13:51)
--- NOTE | 2019-01-30 11:30 | P.PN ---
Progress Note - Text Interval history: The patient is found in group he follows me to an interview room. He reports his mood is down he feels a lack of motivation and energy. He continues to ask for his stimulant medication and more benzodiazepine. We discussed options in terms of treating his anxiety. We discussed a few SSRIs. He has not yet been on Paxil we discussed this as an option. He indicates he was able to sleep last night appetite was improved this morning. Mental status exam: The patient is a male appearing older than his sta matthew age. He is thin is very soft-spoken he demonstrates some psychomotor slowing. He describes a depressed and anxious mood. Affect is bland. He presented with suicidal ideation he states he feels safe in the hospital. He reports no homicidal ideation intent or plan. He is endorsing no auditory or visual hallucinations or specific delusions. He demonstrates no tangential thinking loose associations or flight of ideas. He appeared to be able to attend our conversation he demonstrated no hyperactivity. Insight and judgment limited. Land: We will start Paxil 20 mg at bedtime I will reduce the scheduled Ativan 1 mg twice daily continue the as needed Ativan for any breakthrough alcohol withdrawal symptoms. He is encouraged to fully participate in the milieu we will monitor him for safety. Vital signs reviewed.
[2019-01-30] MEDS ORDERED: LORazepam 2 MG/ML INJ IM STA (12:25)
[2019-01-30] MEDS ORDERED: LORazepam 1 MG TAB PO SCH (21:00)
[2019-01-30 21:37] LABS: Hemoglobin A1C 5.5 % (4.0-6.0)
[2019-01-30] MEDS: traZODone HCL 100 MG TAB PO SCH (21:47)
[2019-01-30] MEDS: PARoxetine 20 MG TAB PO SCH (21:47)
[2019-01-31] MEDS: HYDROcodone/APAP 5-325MG 1 EACH TAB PO PRN ×4 (00:01→21:14)
[2019-01-31] MEDS: LORazepam 1 MG TAB PO PRN ×3 (03:03→18:32)
[2019-01-31] MEDS: LORazepam 1 MG TAB PO SCH ×2 (08:04→21:34)
[2019-01-31] MEDS: NICOTINE 14MG/24HR PATCH TRANSDERM SCH (08:04)
[2019-01-31] MEDS: THIAMINE 100 MG TAB PO SCH (08:04)
[2019-01-31] MEDS: MULTIVITAMINS, THERA 1 EACH TAB PO SCH (08:05)
[2019-01-31] MEDS: PANTOPRAZOLE 40 MG TABLET PO SCH (08:05)
[2019-01-31] MEDS: NYSTATIN 100,000 UNIT/GM POWD 15 GM TOPICAL SCH ×2 (08:05→21:36)
--- NOTE | 2019-01-31 09:24 | P.PN ---
Progress Note - Text Interval history: The patient is found in his room he follows me to an interview room. He reports that his mood is beginning to improve. He reports he attended groups. He states he slept last night staff report he slept 5 hours. He indicates his appetite is improving. We reviewed his psychotropic medication. He continues to request more benzodiazepines. We discussed that we will need to again attempt to reduce his Ativan. Mental status exam: The patient's a thin male appearing older than his stated age. He is dressed in his own clothing. He holds his head in his hands as he seated in the chair. Eye contact is intermittent speech is fluent nonpressured he mainly response to questions area he reports his mood is improving he reports feeling safe in the hospital. Reporting no homicidal ideation intent or plan. He reports no auditory or visual hallucinations or any specific delusions. There is no observed evidence of psychosis. He demonstrates no tangential thinking lose associations or flight of ideas. He demonstrates some psychomotor slowing which may be related to his current dose of Ativan. Insight and judgment limited. He is oriented to person place and date. Impression/plan: Depression, anxiety, alcohol use disorder, the patient continue on his current medications he was recently started on Paxil. We will again attempt to reduce his Ativan. Vital signs reviewed they're within normal limits. He demonstrates no physical signs of alcohol withdrawal. He is encouraged to fully participate in the milieu we will monitor him for safety.
[2019-01-31] MEDS: ARTIFICIAL TEARS-HYPROMELLOSE DROPS 15 ML BTL BOTH EYES PRN ×2 (18:32→21:18)
[2019-01-31] MEDS: PARoxetine 20 MG TAB PO SCH (21:36)
[2019-01-31] MEDS: traZODone HCL 100 MG TAB PO SCH (22:41)
[2019-01-31] MEDS: IBUPROFEN 800 MG TAB PO PRN (22:44)
[2019-02-01] MEDS: HYDROcodone/APAP 5-325MG 1 EACH TAB PO PRN ×4 (06:27→23:45)
[2019-02-01] MEDS: NYSTATIN 100,000 UNIT/GM POWD 15 GM TOPICAL SCH ×2 (08:05→21:27)
[2019-02-01] MEDS: THIAMINE 100 MG TAB PO SCH (08:05)
[2019-02-01] MEDS: PANTOPRAZOLE 40 MG TABLET PO SCH (08:05)
[2019-02-01] MEDS: MULTIVITAMINS, THERA 1 EACH TAB PO SCH (08:05)
[2019-02-01] MEDS: LORazepam 1 MG TAB PO SCH ×2 (08:05→21:27)
[2019-02-01] MEDS: NICOTINE 14MG/24HR PATCH TRANSDERM SCH (08:05)
[2019-02-01] MEDS: ARTIFICIAL TEARS-HYPROMELLOSE DROPS 15 ML BTL BOTH EYES PRN (08:09)
[2019-02-01 10:38] VITALS: BMI 24.2
[2019-02-01] MEDS ORDERED: LORazepam 1 MG TAB PO PRN ×2 (12:06→12:16)
--- NOTE | 2019-02-01 12:10 | P.PN ---
Progress Note - Text Progress Note Date: 02/01/19 Interval history: Patient was seen wandering the hallways and calmly conversing to other patients on the unit. Patient stated that he is continuing to feel anxious and was preoccupied with Klonopin and Ativan at this time. He states that he feels "shaky at times" and received 1 Ativan yesterday for alcohol withdrawal. At this time patient's vital signs appear to be stable. Patient denies any problems with his mood and stated that he slept fair last night and has been participating in groups. At this time patient denies any suicidal or homicidal ideations intent or plan. Denies any Auditory or visual hallucinations. Patient denies any side effects from the medications and has been compliant with meds. Mental status exam: General Appearance: Patient appears to be stated age is alert, pleasant, and cooperative. Behavior: [No agitated behavior. Patient is calm and directable Speech: Patient's speech is fluent and nonpressured. Mood/Affect: Mood is improving, affect is congruent and constricted. Suicidality/Homicidality: Patient denies having any suicidal or homicidal ideation intent or plan. Perceptions: Patient denies any auditory or visual hallucinations. Though content/process: There is no evidence of any delusional thought content and thought process is linear and goal-directed. Judgment and insight: improving Assessment/Plan: Continue with current diagnosis. Patient continues to meet criteria for inpatient psychiatric admission for symptom stabilization and safety.Patient will be maintained on current psychotropic medication regimen. Patient's vital signs appear to be stable and will continue to monitor for alcohol withdrawal. Monitor for medication compliance and for any psychotropic medication side effects. Will continue to monitor ongoing response to treatment.
[2019-02-01] MEDS: traZODone HCL 100 MG TAB PO SCH (21:27)
[2019-02-01] MEDS: PARoxetine 20 MG TAB PO SCH (21:27)
[2019-02-02] MEDS: HYDROcodone/APAP 5-325MG 1 EACH TAB PO PRN ×3 (06:26→22:53)
[2019-02-02 06:42] VITALS: RESP 16
[2019-02-02] MEDS: NICOTINE 14MG/24HR PATCH TRANSDERM SCH (09:09)
[2019-02-02] MEDS: LORazepam 1 MG TAB PO SCH ×2 (09:10→21:06)
[2019-02-02] MEDS: PANTOPRAZOLE 40 MG TABLET PO SCH (09:10)
[2019-02-02] MEDS: MULTIVITAMINS, THERA 1 EACH TAB PO SCH (09:10)
[2019-02-02] MEDS: NYSTATIN 100,000 UNIT/GM POWD 15 GM TOPICAL SCH ×2 (09:10→21:07)
[2019-02-02] MEDS: THIAMINE 100 MG TAB PO SCH (09:10)
[2019-02-02] MEDS: ARTIFICIAL TEARS-HYPROMELLOSE DROPS 15 ML BTL BOTH EYES PRN ×2 (09:11→22:52)
[2019-02-02] MEDS: IBUPROFEN 800 MG TAB PO PRN (12:52)
--- NOTE | 2019-02-02 13:02 | P.PN ---
Progress Note - Text Progress Note Date: 02/02/19 Interval history: Patient was seen wandering the hallways and calmly conversing to other patients waiting for his medications and was agreeable to speak to advertising copywriter. Patient was again preoccupied with his anxiety and was requesting to have his Ativan increased once again. He states that he is continuing to feel "shaky". At this time patient's vital signs appear to be stable except for a mild increase in heart rate this morning.. Patient denies any problems with his mood and stated that he slept fair last night and has been participating in groups. At this time patient denies any suicidal or homicidal ideations intent or plan. Denies any Auditory or visual hallucinations. Patient denies any side effects from the medications and has been compliant with meds. Mental status exam: General Appearance: Patient appears to be stated age is alert, pleasant, and cooperative. Behavior: No agitated behavior. Patient is calm and directable Speech: Patient's speech is fluent and nonpressured. Mood/Affect: Mood is improving, affect is congruent and constricted. Suicidality/Homicidality: Patient denies having any suicidal or homicidal ideation intent or plan. Perceptions: Patient denies any auditory or visual hallucinations. Though content/process: There is no evidence of any delusional thought content and thought process is linear and goal-directed. Judgment and insight: improving mildly Assessment/Plan: Continue with current diagnosis. Patient continues to meet criteria for inpatient psychiatric admission for symptom stabilization and safety.Patient will be maintained on current psychotropic medication regimen. Patient's vital signs appear to be stable except for a mild increase in his heart rate this morning and will continue to monitor for alcohol withdrawal. Monitor for medication compliance and for any psychotropic medication side effects. Will continue to monitor ongoing response to treatment.
[2019-02-02] MEDS: traZODone HCL 100 MG TAB PO SCH (21:06)
[2019-02-02] MEDS: PARoxetine 20 MG TAB PO SCH (21:06)
[2019-02-03] MEDS: PANTOPRAZOLE 40 MG TABLET PO SCH (08:12)
[2019-02-03] MEDS: NICOTINE 14MG/24HR PATCH TRANSDERM SCH (08:12)
[2019-02-03] MEDS: MULTIVITAMINS, THERA 1 EACH TAB PO SCH (08:12)
[2019-02-03] MEDS: NYSTATIN 100,000 UNIT/GM POWD 15 GM TOPICAL SCH ×2 (08:12→15:56)
[2019-02-03] MEDS: THIAMINE 100 MG TAB PO SCH (08:12)
[2019-02-03] MEDS: LORazepam 1 MG TAB PO SCH (08:12)
[2019-02-03] MEDS: HYDROcodone/APAP 5-325MG 1 EACH TAB PO PRN ×3 (08:13→23:30)
--- NOTE | 2019-02-03 11:46 | P.PN ---
Progress Note - Text Interval history: The patient is found in group he follows me to an interview room. He states that he is having no side effects from his current medications. He discusses his continued concern about anxiety symptoms. We discussed the dangers of being on [place] a benzodiazepine and a stimulant. He is encouraged to continue working on coping skill development. He indicates he sleeping well with use of trazodone. He would like to trial Strattera for ADHD symptoms and we discussed prescribing that upon discharge as it is not carried in the hospital. Mental status exam: The patient is alert he is a thin male he stressors unclothing hygiene grooming adequate. He indicates his mood is good affect is brighter he more readily engages in conversation. He uses smiling and humor appropriately during the session. He is reporting no acute suicidal ideation intent or plan. He is reporting no auditory or visual hallucinations or any specific delusions. He demonstrates no tangential thinking loose associations or flight of ideas. He demonstrates no verbal or physical aggressiveness. Insight and judgment improving. He does describe feelings of anxiety is more worried about having acute symptoms of anxiety in the future. He remains focused on medication management for those symptoms rather than coping skill development. Plan: The patient will continue on his current medication. We will monitor him for safety. He does appear to be clinically stabilizing in terms of need for continued psychiatric hospitalization. We will consider discharging him tomorrow if clinically appropriate. He is encouraged to continue attending groups. Vital signs reviewed. There is no evidence of any alcohol withdrawal. Reduce the Ativan to 1 mg up to twice daily as needed.
[2019-02-03] MEDS: LORazepam 1 MG TAB PO PRN (15:56)
[2019-02-03] MEDS: traZODone HCL 100 MG TAB PO SCH (21:02)
[2019-02-03] MEDS: PARoxetine 20 MG TAB PO SCH (21:02)
[2019-02-03] MEDS: IBUPROFEN 800 MG TAB PO PRN (21:04)
[2019-02-04 06:45] VITALS: BP 88/57; PULSE 68; TEMP 97.8
[2019-02-04] MEDS: THIAMINE 100 MG TAB PO SCH (07:47)
[2019-02-04] MEDS: PANTOPRAZOLE 40 MG TABLET PO SCH (07:47)
[2019-02-04] MEDS: MULTIVITAMINS, THERA 1 EACH TAB PO SCH ×2 (07:47→07:53)
[2019-02-04] MEDS: NICOTINE 14MG/24HR PATCH TRANSDERM SCH (07:47)
[2019-02-04] MEDS: NYSTATIN 100,000 UNIT/GM POWD 15 GM TOPICAL SCH (07:48)
[2019-02-04] MEDS: HYDROcodone/APAP 5-325MG 1 EACH TAB PO PRN (07:50)
[2019-02-04] MEDS: LORazepam 1 MG TAB PO PRN (07:50)
--- NOTE | 2019-02-04 09:34 | P.DS ---
Providers Date of admission: 01/28/19 23:22 Expected date of discharge: 02/04/19 Attending physician: Jerad Davis Consults: 01/28/19 23:59 Consult Physician Routine Consulting Provider: Mary Rivera Consult Reason/Comments: H&P and medical Do you want consulting provider notified?: Yes Primary care physician: Stated None - Discharge Diagnosis(es) (1) Major depressive disorder, recurrent severe without psychotic features Current Visit: Yes Status: Acute Priority: High (2) Alcohol use disorder Current Visit: Yes Status: Acute Priority: High (3) Anxiety Current Visit: Yes Status: Acute Priority: Medium Hospital Course: Brief summary of admission note: This patient is a 38-year-old single male was admitted to the mental health unit from the medical floor for suicidal ideation. He had reported he was depressed he had been experiencing a reduced appetite weight loss sleep was decreased energy was low. He endorsed a history of major depressive disorder ADHD an alcohol use disorder. He reported he was consuming a fifth of alcohol daily. For full details please refer to my psychiatric evaluation dated 01/29/2019. Summary of hospital course: The patient was admitted to the mental health unit voluntarily. We reviewed his presenting symptoms and treatment options. Initially we continued his trazodone continues to Ativan to prevent alcohol withdrawal symptoms. Later we decided to start Paxil 20 mg at bedtime for depressive and anxiety symptoms. During the course of the admission he stated he would be willing to try Strattera but this is a medicine that we do not have on formulary is providing a prescription for it upon discharge. He selectively attended groups. He was seen by internal medicine for routine history and physical exam. He demonstrated no agitated behavior. Throughout the hospitalization he was asking for more benzodiazepines although we were tapering him off of the Ativan. We spent time discussing the need for him to attend inpatient chemical dependency treatment again and he deferred that treatment option. He states he will not use Antabuse and does not wish to take naltrexone again. In terms of mood symptoms he is reporting a complete resolution of suicidal ideation. Mental status exam: The patient is a thin male he stressors unclothing hygiene grooming adequate. Eye contact is appropriate. Speech is fluent spontaneous nonpressured. He reports his mood is good his affect is brighter he demonstrates appropriate smiling and use of humor spontaneously. He reports no hopelessness thinking no suicidal ideation intent or plan. He is reporting no homicidal ideation intent or plan. He is endorsing no auditory or visual hallucinations or any specific delusions there is no observed evidence of psychosis. He demonstrates no tangential thinking loose associations or flight of ideas. He does not appear hypomanic or manic. He demonstrates no tremulous activity. He demonstrates no involuntary repetitive movements or any verbal or physical aggressiveness. Insight and judgment grossly intact. He demonstrates future oriented thinking. Impressions 1. Major depressive disorder recurrent severe without psychosis, alcohol use disorder severe, anxiety unspecified, ADHD Plan: The patient will be discharged mental health unit today to return to his own apartment. He states he also stays with his father. Social work will arrange his outpatient follow-up for mental health services. The patient is refusing referral for inpatient chemical dependency treatment and he is refusing any medication for his alcohol use disorder such as Campral, Antabuse, naltrexone. He will continue on Paxil 20 mg at bedtime, trazodone 300 mg at bedtime we will start Strattera 80 mg daily. He is instructed to abstain from any use of alcohol or illicit drugs as these can precipitate mood symptoms and elevate his safety risk. At this time there is no imminent safety risk is appropriate for continued care as an outpatient. He is instructed to return to the hospital with any acute safety concerns. Patient Condition at Discharge: Stable Plan - Discharge Summary New Discharge Prescriptions: New Nicotine 14Mg/24Hr Patch [Habitrol] 1 patch TRANSDERM DAILY #14 patch Multivitamins, Thera [Multivitamin (formulary)] 1 each PO DAILY tab HYDROcodone/APAP 5-325MG [Roy 5-325] 1 each PO Q8HR PRN tab PRN Reason: MODERATE Pain PARoxetine [Paxil] 20 mg PO HS #30 tab Atomoxetine HCl [Strattera] 80 mg PO QAM #30 cap Continue Ibuprofen [Motrin] 800 mg PO TID PRN 3 Days #0 PRN Reason: Pain Omeprazole 20 mg PO DAILY traZODone HCL 300 mg PO HS #30 tab Discontinued busPIRone HCl [Buspar] 10 mg PO TID Dextroamphetamine/Amphetamine [Adderall] 20 mg PO BID #30 tab clonazePAM [KlonoPIN] 1 mg PO BID #30 tab HYDROcodone/APAP 5-325MG [Roy 5-325] 1 tab PO Q6H PRN PRN Reason: Pain Discharge Medication List Ibuprofen [Motrin] 800 mg PO TID PRN 3 Days #0 10/04/18 [Rx] Omeprazole 20 mg PO DAILY 12/10/18 [History] Atomoxetine HCl [Strattera] 80 mg PO QAM #30 cap 02/04/19 [Rx] HYDROcodone/APAP 5-325MG [Roy 5-325] 1 each PO Q8HR PRN tab 02/04/19 [Rx] Multivitamins, Thera [Multivitamin (formulary)] 1 each PO DAILY tab 02/04/19 [Rx] Nicotine 14Mg/24Hr Patch [Habitrol] 1 patch TRANSDERM DAILY #14 patch 02/04/19 [Rx] PARoxetine [Paxil] 20 mg PO HS #30 tab 02/04/19 [Rx] traZODone HCL 300 mg PO HS #30 tab 02/04/19 [Rx] Activity/Diet/Wound Care/Special Instructions: Activity and diet as tolerated. Avoid the use of street drugs and alcohol. Take all medications as prescribed. When you are in need of refills on your medications please contact your medical provider and/ or outpatient psychiatrist to have this done. Please go to scheduled outpatient appointment for aftercare. If symptoms return or become worse call the crisis line at and/or go to the nearest emergency room for evaluation.
== END 2019-02-04 12:05 | disposition home or self-care (01) | DRG 885 ==
LOC: 3MHU 23:22
PROVIDERS: ADMIT Psychiatry & Neurology Psychiatry; ATTEND Psychiatry & Neurology Psychiatry
DX: F33.2 Major depressive disorder, recurrent severe without psychotic features (principal); R45.851 Suicidal ideations; F10.129 Alcohol abuse with intoxication, unspecified; F17.210 Nicotine dependence, cigarettes, uncomplicated; F41.9 Anxiety disorder, unspecified; F90.9 Attention-deficit hyperactivity disorder, unspecified type; J44.9 Chronic obstructive pulmonary disease, unspecified; R44.1 Visual hallucinations; B35.3 Tinea pedis; Z79.899 Other long term (current) drug therapy; Z91.81 History of falling; Z82.5 Family history of asthma and other chronic lower respiratory diseases
CPT/HCPCS: 80061; 83036; 84443

== ENCOUNTER 2019-02-12 12:47 | Emergency (ER) | payer OTHER ==
[2019-02-12 12:54] VITALS: BP 112/73; PULSE 97; RESP 19; TEMP 99
[2019-02-12] MEDS ORDERED: LORazepam 1 MG TAB PO STA (13:10)
--- NOTE | 2019-02-12 13:49 | XR ---
EXAMINATION TYPE: XR ankle complete LT, XR foot complete LT DATE OF EXAM: 02/12/2019 COMPARISON: NONE HISTORY: Pain TECHNIQUE: 3 views of the left ankle are submitted for evaluation. FINDINGS: There is no evidence for fracture or dislocation. Ankle mortise is intact. Soft tissues are within normal limits. IMPRESSION: 1. No evidence for acute fracture. EXAMINATION TYPE: XR ankle complete LT, XR foot complete LT DATE OF EXAM: 02/12/2019 CLINICAL HISTORY: pain TECHNIQUE: Frontal, lateral and oblique images of the left foot are obtained. COMPARISON: None. FINDINGS: There is no acute fracture/dislocation evident. The joint spaces appear within normal sheets its. The overlying soft tissue appears unremarkable. IMPRESSION: There is no acute fracture or dislocation. ICD 10 NO FRACTURE, INITIAL EVALUATION
--- NOTE | 2019-02-12 13:53 | ED ---
Lower Extremity Injury HPI - General Chief Complaint: Extremity Injury, Lower Stated Complaint: ankle injury Time Seen by Provider: 02/12/19 12:59 Source: EMS, RN notes reviewed, old records reviewed Mode of arrival: EMS Limitations: no limitations - History of Present Illness Initial Comments: Patient is a 38-year-old male history of depression, alcohol abuse. He presents today for multiple complaints. Patient's chief complaint initial arrival his left ankle pain and foot pain after he fell off a porch she suspects 3 days ago. He does not know. He is likely intoxicated at that time. Patient also states that he feels he is going to withdrawal, and is complaining of shaking due to not having alcohol drink the past 24 hours. Patient also states that he is out of all of his medication including his psychiatric medication. He states is an appointment with psychiatrist in one month. He denies any suicidal or homicidal ideations at this time. He is searching for help to stop drinking. - Related Data Previous Rx's Medication Instructions Recorded chlordiazePOXIDE HCl [Librium] 25 mg PO QID 3 Days #12 capsule 02/12/19 Allergies Allergy/AdvReac Type Severity Reaction Status Date / Time No Known Allergies Allergy Verified 02/12/19 13:04 Review of Systems ROS Statement: Those systems with pertinent positive or pertinent negative responses have been documented in the HPI. ROS Other: All systems not noted in ROS Statement are negative. Past Medical History Past Medical History: COPD Additional Past Medical History / Comment(s): Alcoholism History of Any Multi-Drug Resistant Organisms: None Reported Past Surgical History: No Surgical Hx Reported Additional Past Surgical History / Comment(s): Strabismus surgery as a child- Left eye surgery Past Anesthesia/Blood Transfusion Reactions: No Reported Reaction Past Psychological History: Anxiety, Bipolar, Depression Smoking Status: Current every day smoker Past Alcohol Use History: Abuse, Daily, Heavy Past Drug Use History: None Reported - Past Family History Father Additional Family Medical History / Comment(s): Father is alive in his 50s with history of COPD. Sister(s) Additional Family Medical History / Comment(s): He has 5 sisters and one has drug abuse issues. Patient does not have any brothers. He has one 5-year-old daughter. Mother History Unknown: Yes Additional Family Medical History / Comment(s): Mother is alive in her 50s with no major medical problems. General Exam - General Exam Comments Initial Comments: Patient is a 38-year-old male. Somewhat tremulous. Patient appears in no distress. Limitations: no limitations General appearance: alert, in no apparent distress Head exam: Present: atraumatic, normocephalic, normal inspection Eye exam: Present: normal appearance, PERRL, EOMI. Absent: scleral icterus, conjunctival injection, periorbital swelling ENT exam: Present: normal exam, mucous membranes moist Neck exam: Present: normal inspection. Absent: tenderness, meningismus, lymphadenopathy Respiratory exam: Present: normal lung sounds bilaterally. Absent: respiratory distress, wheezes, rales, rhonchi, stridor Cardiovascular Exam: Present: regular rate, normal rhythm, normal heart sounds. Absent: systolic murmur, diastolic murmur, rubs, gallop, clicks GI/Abdominal exam: Present: soft, normal bowel sounds. Absent: distended, tenderness, guarding, rebound, rigid Extremities exam: Present: normal inspection, full ROM, normal capillary refill. Absent: tenderness, pedal edema, joint swelling, calf tenderness Left Lower Leg exam: Present: normal inspection, full ROM, swelling, ecchymosis Ankle exam: Present: normal inspection, full ROM, ecchymosis Foot/Toe exam: Present: normal inspection, full ROM Back exam: Present: normal inspection Neurological exam: Present: alert, oriented X3, CN II-XII intact Psychiatric exam: Present: normal affect, normal mood Skin exam: Present: warm, dry, intact, normal color. Absent: rash Course Vital Signs 02/12/19 12:49 Temperature 99.0 F Pulse Rate 97 Respiratory 19 Rate Blood Pressure 112/73 O2 Sat by Pulse 98 Oximetry Medical Decision Making - Medical Decision Making 38-year-old male presents emergency department today for concern for left foot and ankle pain. Patient states that he rolled his ankle 3 days ago. At this time Patient also states he'll go through withdrawal is an alcoholic drink in the past 24 hours. Somewhat shaky. He states he is searching for some help. A did offer the Patient to see psych services. He was recently discharged on February 04 for inpatient psychiatric admission. At that time Patient declined any help with alcohol abuse treatment and referral to substance abuse centers. At this time patient's foot and ankle x-ray were reviewed and negative for any acute process. Discussed likely a sprain and Patient was given Hector wrap and ankle stirrup splint and crutches. I did discuss I can write a short prescription for Librium but no other medications for psychiatry can be controlled at this time. Patient understands treatment plan will comply. Return parameters were discussed. - Radiology Data Radiology results: report reviewed X-ray of the foot and ankle reviewed and negative for any acute fracture dislocation. Disposition Clinical Impression: Ankle sprain, ETOH abuse Disposition: HOME SELF-CARE Condition: Good Instructions (If sedation given, give patient instructions): Ankle Sprain (ED) Additional Instructions: Patient advised to take anti-inflammatory medicine such as Tylenol for pain. Patient should wear the Hector wrap and ankle stirrup splint. He is a Librium pre scription to help with stopping drinking. Patient should follow-up with your primary care doctor and psychiatry for further medication refills. Prescriptions: chlordiazePOXIDE HCl [Librium] 25 mg PO QID 3 Days #12 capsule Is patient prescribed a controlled substance at d/c from ED?: No Referrals: None,Stated [Primary Care Provider] - 1-2 days Emil Mathias MD [STAFF PHYSICIAN] - 1-2 days Time of Disposition: 14:15
== END 2019-02-12 14:36 | disposition home or self-care (01) ==
LOC: EC 12:47
DX: S93.402A Sprain of unspecified ligament of left ankle, initial encounter (principal); F10.10 Alcohol abuse, uncomplicated; F17.200 Nicotine dependence, unspecified, uncomplicated; Z81.3 Family history of other psychoactive substance abuse and dependence; W17.89XA Other fall from one level to another, initial encounter; Y92.009 Unspecified place in unspecified non-institutional (private) residence as the place of occurrence of the external cause
CPT/HCPCS: 99284

== ENCOUNTER 2019-02-19 16:31 | Observation (INO) | payer OTHER ==
[2019-02-19] MEDS ORDERED: SODIUM CHLORIDE 0.9% 1,000 ML IV STA (17:35)
--- NOTE | 2019-02-19 17:40 | ED ---
General Adult HPI - General Chief complaint: Psychiatric Symptoms Stated complaint: mental health Time Seen by Provider: 02/19/19 17:07 Source: patient, EMS, RN notes reviewed Mode of arrival: EMS Limitations: no limitations - History of Present Illness Initial comments: Patient is a pleasant 38-year-old male presenting to the emergency department with alcohol problems and depression. Patient states he is trying to get off alcohol. Patient states he does drink daily for his whole life. Patient states he drinks up to a gallon of vodka daily. Patient last drink yesterday. Patient requests [employer] and go home. Patient does admit to feeling depressed. Patient states at times he hears loud banging and sees lights and shadows. Patient denies any suicidal thoughts at this time. Patient reportedly did say staff earlier that he did have thoughts. - Related Data Home Medications Medication Instructions Recorded Confirmed Atomoxetine HCl [Strattera] 80 mg PO QAM 02/19/19 02/19/19 Multivitamins, Thera [Multivitamin 1 tab PO DAILY 02/19/19 02/19/19 (formulary)] Nicotine 14Mg/24Hr Patch [Habitrol 1 patch TRANSDERM DAILY 02/19/19 02/19/19 14Mg/24Hr Patch] Omeprazole 20 mg PO DAILY 02/19/19 02/19/19 PARoxetine [Paxil] 20 mg PO HS 02/19/19 02/19/19 traZODone HCL 300 mg PO HS 02/19/19 02/19/19 Allergies Allergy/AdvReac Type Severity Reaction Status Date / Time No Known Allergies Allergy Verified 02/19/19 17:35 Review of Systems ROS Statement: Those systems with pertinent positive or pertinent negative responses have been documented in the HPI. ROS Other: All systems not noted in ROS Statement are negative. Constitutional: Denies: fever Eyes: Denies: eye pain ENT: Denies: ear pain Respiratory: Denies: cough, dyspnea Cardiovascular: Denies: chest pain Endocrine: Denies: fatigue Gastrointestinal: Denies: abdominal pain Genitourinary: Denies: urgency Musculoskeletal: Denies: back pain Skin: Denies: rash Neurological: Denies: headache Psychiatric: Reports: depression, auditory hallucinations, visual hallucinations. Denies: homicidal thoughts Past Medical History Past Medical History: COPD Additional Past Medical History / Comment(s): Alcoholism History of Any Multi-Drug Resistant Organisms: None Reported Past Surgical History: No Surgical Hx Reported Additional Past Surgical History / Comment(s): Strabismus surgery as a child- Left eye surgery Past Anesthesia/Blood Transfusion Reactions: No Reported Reaction Past Psychological History: Anxiety, Bipolar, Depression Smoking Status: Current every day smoker Past Alcohol Use History: Abuse, Daily, Heavy Past Drug Use History: None Reported - Past Family History Father Additional Family Medical History / Comment(s): Father is alive in his 50s with history of COPD. Sister(s) Additional Family Medical History / Comment(s): He has 5 sisters and one has drug abuse issues. Patient does not have any brothers. He has one 5-year-old daughter. Mother History Unknown: Yes Additional Family Medical History / Comment(s): Mother is alive in her 50s with no major medical problems. General Exam Limitations: no limitations General appearance: alert, in no apparent distress, appears intoxicated Head exam: Present: normocephalic Eye exam: Present: normal appearance, PERRL, EOMI Neck exam: Present: normal inspection Respiratory exam: Present: normal lung sounds bilaterally Cardiovascular Exam: Present: regular rate, normal rhythm GI/Abdominal exam: Present: soft. Absent: tenderness Extremities exam: Present: normal inspection Neurological exam: Present: alert Psychiatric exam: Present: normal affect, normal mood Skin exam: Present: normal color Course Vital Signs 02/19/19 16:52 Temperature 98.0 F Pulse Rate 89 Respiratory 18 Rate Blood Pressure 113/77 O2 Sat by Pulse 96 Oximetry Medical Decision Making - Medical Decision Making Case discussed in detail with Dr. bee, covering for medical call, who will admit. - Lab Data Result diagrams: 02/19/19 17:09 02/19/19 17:09 Lab Results 02/19/19 02/19/19 Range/Units 17:09 17:09 WBC 5.1 (3.8-10.6) k/uL RBC 4.21 L (4.30-5.90) m/uL Hgb 13.4 (13.0-17.5) gm/dL Hct 41.1 (39.0-53.0) % MCV 97.5 D (80.0-100.0) fL MCH 31.7 (25.0-35.0) pg MCHC 32.5 (31.0-37.0) g/dL RDW 14.0 (11.5-15.5) % Plt Count 137 L (150-450) k/uL Neutrophils % 39 % Lymphocytes % 51 % Monocytes % 5 % Eosinophils % 3 % Basophils % 1 % Neutrophils # 2.0 (1.3-7.7) k/uL Lymphocytes # 2.6 (1.0-4.8) k/uL Monocytes # 0.2 (0-1.0) k/uL Eosinophils # 0.1 (0-0.7) k/uL Basophils # 0.1 (0-0.2) k/uL Sodium 148 H (137-145) mmol/L Potassium 4.3 (3.5-5.1) mmol/L Chloride 109 H (98-107) mmol/L Carbon Dioxide 26 (22-30) mmol/L Anion Gap 13 mmol/L BUN 12 (9-20) mg/dL Creatinine 0.80 (0.66-1.25) mg/dL Est GFR (CKD-EPI)AfAm >90 (>60 ml/min/1.73 sqM) Est GFR (CKD-EPI)NonAf >90 (>60 ml/min/1.73 sqM) Glucose 74 (74-99) mg/dL Calcium 8.1 L (8.4-10.2) mg/dL Serum Alcohol 420 H* mg/dL Disposition Clinical Impression: Alcohol intoxication, Depression Disposition: ADMITTED IP TO THIS HOSP Is patient prescribed a controlled substance at d/c from ED?: No Referrals: None,Stated [Primary Care Provider] - 1-2 days Decision Time: 18:50
[2019-02-19 17:49] LABS: Basophils # (A) 0.1 k/uL (0-0.2); Basophils % (A) 1 %; Eosinophils # (A) 0.1 k/uL (0-0.7); Eosinophils % (A) 3 %; HCT 41.1 % (39.0-53.0); HGB 13.4 gm/dL (13.0-17.5); Lymphocytes # (A) 2.6 k/uL (1.0-4.8); Lymphocytes % (A) 51 %; MCH 31.7 pg (25.0-35.0); MCHC 32.5 g/dL (31.0-37.0); Mean Platelet Volume 7.7; Monocytes # (A) 0.2 k/uL (0-1.0); Monocytes % (A) 5 %; Neutrophils % (A) 39 %; Platelet Count 137 k/uL (150-450); RBC 4.21 m/uL (4.30-5.90); WBC 5.1 k/uL (3.8-10.6)
[2019-02-19 17:54] LABS: African American GFR (CKD) >90 (>60 ml/min/1.73 sqM); Anion Gap 13 mmol/L; Blood Urea Nitrogen 12 mg/dL (9-20); Calcium 8.1 mg/dL (8.4-10.2); Carbon Dioxide 26 mmol/L (22-30); Chloride 109 mmol/L (98-107); Glucose 74 mg/dL (74-99); Potassium 4.3 mmol/L (3.5-5.1); Sodium 148 mmol/L (137-145)
[2019-02-19 17:55] LABS: MCV 97.5 fL (80.0-100.0)
[2019-02-19 18:05] LABS: Alcohol 420 mg/dL
[2019-02-19] MEDS ORDERED: NALOXONE 0.4 MG/ML 1 ML VIAL IV PRN (18:52)
[2019-02-19] MEDS: LORazepam 2 MG/ML INJ IV PRN ×3 (19:25→23:59)
[2019-02-19] MEDS: FAMOTIDINE 20 MG TAB PO SCH (21:07)
[2019-02-19] MEDS: THIAMINE 100 MG TAB PO SCH (21:07)
[2019-02-19] MEDS: DEXTROSE 5%-0.45% NACL 1,000 ML IV SCH (21:08)
[2019-02-20] MEDS: LORazepam 2 MG/ML INJ IV PRN ×7 (02:59→23:41)
[2019-02-20] MEDS: FAMOTIDINE 20 MG TAB PO SCH ×2 (07:08→21:44)
[2019-02-20] MEDS: THIAMINE 100 MG TAB PO SCH ×2 (07:08→17:26)
[2019-02-20] MEDS: MULTIVITAMINS, THERA 1 EACH TAB PO SCH (07:09)
[2019-02-20 07:23] LABS: Amphetamine Screen,Urine Not Detected (NotDetected); Barbiturate Screen,Urine Not Detected (NotDetected); Benzodiazepines Screen,Urine Detected (NotDetected); Cocaine Screen,Urine Not Detected (NotDetected); Methadone Screen, Urine Not Detected (NotDetected); Opiate Screen,Urine Not Detected (NotDetected); Oxycodone Screen, Urine Not Detected (NotDetected); Phencyclidine Screen,Urine Not Detected (NotDetected); Tricyclic Antidepressant,Urine Not Detected (NotDetected); Urn Cannabinoid Scrn Not Detected (NotDetected)
[2019-02-20 10:14] VITALS: BMI 17.9
--- NOTE | 2019-02-20 14:59 | HP ---
HISTORY AND PHYSICAL DATE OF SERVICE: 02/20/2019 CHIEF COMPLAINT: Alcohol intoxication as well as depression. HISTORY OF PRESENT ILLNESS: This is a 38-year-old gentleman with a past medical history of multiple medical problems including COPD, history of alcoholism, history of anxiety, bipolar depression, not being followed by a primary physician in the outpatient setting is apparently abusing alcohol on a daily basis. The patient also has significant smoke also. The patient was taken to emergency room because the patient wants to try to get off the alcohol. Patient is not feeling well. The patient is also complaining of abdominal and chest pain. Patient also drinks up to a gallon of vodka daily. The alcohol level on admission was found to be 420. The patient also has some evidence of early alcohol withdrawal and delirium tremens also. There is no history of fever or rigors. There is no history of headache, loss of consciousness, seizures at this time. PAST MEDICAL HISTORY: History of COPD, history of EtOH, anxiety, bipolar depression. MEDICATIONS: Prior to admission include: 1. Trazodone 300 mg q.h.s. 2. Paxil 20 mg q.h.s. 3. Omeprazole 20 mg p.o. daily. 4. Multivitamins 1 p.o. daily. 5.80 mg p.o. q.a.m. ALLERGIES: None. FAMILY HISTORY: No history of heart disease or strokes in the family. SOCIAL HISTORY: History of alcohol, smoking. REVIEW OF SYSTEMS: ENT: No diminished vision or diminished hearing. CARDIOVASCULAR: No angina. RESPIRATION: Occasional cough. GI: As mentioned earlier. : No dysuria. NERVOUS SYSTEM: No numbness or weakness. ALLERGY/IMMUNOLOGY: No asthma or hayfever. MUSCULOSKELETAL: As mentioned earlier. HEMATOLOGY: No history of anemia. ENDOCRINE: No history of diabetes or hypothyroidism. CONSTITUTIONAL: As mentioned earlier. DERMATOLOGY: Negative. PSYCHIATRY: As mentioned earlier. PHYSICAL EXAM: Patient is alert, oriented x3. The pulse is 96. Blood pressure 105/68, respiration 18, temperature 98.6, pulse ox 97% on room air. HEENT: Conjunctivae normal. NECK: No jugular venous distension. CARDIOVASCULAR SYSTEM: S1, S2, muffled. RESPIRATION: Breath sounds diminished at the bases, a few scattered rhonchi, no crackles. ABDOMEN: Soft, nontender. No mass palpable. LEGS: No edema, no swelling. NERVOUS SYSTEM: Higher functions as mentioned earlier. Moves all four extremities. No focal deficits. Mild diffuse tremors present. Mild diffuse weakness also. LABS: WBC is 5.1, hemoglobin is 13.4 sodium 148, alcohol 420. ASSESSMENT: 1. Acute alcohol intoxication. 2. Alcohol withdrawal, early delirium tremens. 3. Change in mental status, metabolic encephalopathy, acute secondary to alcohol intake. 4. Abdominal pain, possible acute gastritis. 5. Depression. 6. Hyponatremia with dehydration. 7. Thrombocytopenia, mild. 8. History of chronic obstructive pulmonary disease. 9. Anxiety, bipolar depression. 10.History of nicotine dependence. RECOMMENDATION: In this 38-year-old gentleman who presented with multiple complex medical issues, will monitor the patient closely. Continue with the current management and CIME protocol. Otherwise, recommend supplement vitamins. Psychiatric consultation. Also recommend Protonix and will resume the home medications. Guarded prognosis because of multiple complex medical issues and further recommendations to follow. MMTACHOL / IJN: [id number] / MTDD
[2019-02-20] MEDS: NICOTINE 14MG/24HR PATCH TRANSDERM SCH (15:03)
[2019-02-20] MEDS: PANTOPRAZOLE 40 MG/10 ML VIAL IVP SCH (15:04)
[2019-02-20] MEDS: DEXTROSE 5%-0.45% NACL 1,000 ML IV SCH (19:54)
[2019-02-20] MEDS ORDERED: traZODone HCL 100 MG TAB PO SCH (21:00)
[2019-02-20] MEDS: PARoxetine 20 MG TAB PO SCH ×2 (21:44→21:50)
[2019-02-20] MEDS: HYDROcodone/APAP 5-325MG 1 EACH TAB PO PRN (21:46)
[2019-02-21 05:41] VITALS: BP 101/66; PULSE 57; RESP 14; TEMP 97.4
[2019-02-21] MEDS: NICOTINE 14MG/24HR PATCH TRANSDERM SCH (08:21)
[2019-02-21] MEDS: FAMOTIDINE 20 MG TAB PO SCH (08:21)
[2019-02-21] MEDS: MULTIVITAMINS, THERA 1 EACH TAB PO SCH (08:21)
[2019-02-21] MEDS: THIAMINE 100 MG TAB PO SCH (08:21)
[2019-02-21] MEDS: PANTOPRAZOLE 40 MG/10 ML VIAL IVP SCH (08:21)
[2019-02-21] MEDS: HYDROcodone/APAP 5-325MG 1 EACH TAB PO PRN (08:28)
[2019-02-21] MEDS: LORazepam 2 MG/ML INJ IV PRN (08:29)
[2019-02-21] MEDS ORDERED: ATOMOXETINE HCL 80 MG PO SCH (09:00)
[2019-02-21 11:09] LABS: Basophils % (A) 2 %; Eosinophils # (A) 0.2 k/uL (0-0.7); Eosinophils % (A) 7 %; HCT 38.3 % (39.0-53.0); HGB 12.7 gm/dL (13.0-17.5); Lymphocytes # (A) 1.2 k/uL (1.0-4.8); Lymphocytes % (A) 50 %; MCH 31.7 pg (25.0-35.0); MCV 95.9 fL (80.0-100.0); Monocytes # (A) 0.1 k/uL (0-1.0); Monocytes % (A) 5 %; Neutrophils # (A) 0.8 k/uL (1.3-7.7); Neutrophils % (A) 34 %; RDW 13.6 % (11.5-15.5); WBC 2.3 k/uL (3.8-10.6)
[2019-02-21 11:17] LABS: African American GFR (CKD) >90 (>60 ml/min/1.73 sqM); Anion Gap 7 mmol/L; Blood Urea Nitrogen 14 mg/dL (9-20); Calcium 8.7 mg/dL (8.4-10.2); Carbon Dioxide 25 mmol/L (22-30); Chloride 108 mmol/L (98-107); Glucose 121 mg/dL (74-99); Potassium 3.6 mmol/L (3.5-5.1); Sodium 140 mmol/L (137-145)
[2019-02-21 11:40] LABS: Platelet Count 82 k/uL (150-450)
[2019-02-21] MEDS ORDERED: FOLIC ACID 1 MG TAB PO SCH (12:00)
--- NOTE | 2019-03-04 22:56 | P.DS ---
Providers Date of admission: 02/19/19 18:52 Expected date of discharge: 02/21/19 Attending physician: Puneet Mcneill MD Consults: 02/19/19 18:51 Consult Physician Urgent Consulting Provider: Nitin Jain Consult Reason/Comments: Depression and suicidal ideation Do you want consulting provider notified?: Yes 02/21/19 10:43 Consult Physician Urgent Consulting Provider: Nitin Jain Consult Reason/Comments: pt refusing antidepressant secondary to adverse reactions. Do you want consulting provider notified?: Already Contacted Primary care physician: Stated None Hospital Course: Discharge diagnosis Acute alcohol intoxication Acute alcohol withdrawal syndrome and DTs metabolic encephalopathy secondary to alcohol intake Possible acute alcohol gastritis Depression Mild thrombocytopenia Hypovolemic hyponatremia COPD Anxiety and bipolar disorder Ongoing nicotine addiction Hospital course Patient is a 38-year-old male with a known history of multiple medical problems was admitted to the hospital due to acute alcohol withdrawal symptoms and was monitored, treated for DTs and withdrawal symptoms. Patient was alcohol intoxicated on admission. Patient was continued on alcohol withdrawal protocol send IV hydration. Patient did improve clinically. Currently more awake and oriented. Was to be discharged home. PHYSICAL EXAMINATION: Patient is lying in the bed comfortably, no acute distress, awake alert and oriented.. HEENT: Normocephalic. Neck is supple. Pupils reactive. Nostrils clear. Oral cavity is moist. Ears reveal no drainage. Neck reveals no JVD, carotid bruits, or thyromegaly. CHEST EXAMINATION: Trachea is central. Symmetrical expansion. Lung carson clear to auscultation and percussion. CARDIAC: Normal S1, S2 with no gallops. No murmurs ABDOMEN: Soft. Bowel sounds normal. No organomegaly. No abdominal bruits. Extremities: reveal no edema. No clubbing or cyanosis Neurologically awake, alert, oriented x3 with well-coordinated movements. No focal deficits noted Skin: No rash or skin lesions. Psychiatric: Coperative. Nonsuicidal Musculoskeletal: No joint swelling or deformity. Normal range of motion. Discharge vitals reviewed. Patient Condition at Discharge: Fair Plan - Discharge Summary Discharge Rx Participant: No New Discharge Prescriptions: New Thiamine [Vitamin B-1] 100 mg PO DAILY #15 tab Continue traZODone HCL 300 mg PO HS Nicotine 14Mg/24Hr Patch [Habitrol] 1 patch TRANSDERM DAILY Atomoxetine HCl [Strattera] 80 mg PO QAM Multivitamins, Thera [Multivitamin (formulary)] 1 tab PO DAILY Omeprazole 20 mg PO DAILY PARoxetine [Paxil] 20 mg PO HS #7 tab Discharge Medication List Atomoxetine HCl [Strattera] 80 mg PO QAM 02/19/19 [History] Multivitamins, Thera [Multivitamin (formulary)] 1 tab PO DAILY 02/19/19 [History] Nicotine 14Mg/24Hr Patch [Habitrol] 1 patch TRANSDERM DAILY 02/19/19 [History] Omeprazole 20 mg PO DAILY 02/19/19 [History] traZODone HCL 300 mg PO HS 02/19/19 [History] PARoxetine [Paxil] 20 mg PO HS #7 tab 02/21/19 [Rx] Thiamine [Vitamin B-1] 100 mg PO DAILY #15 tab 02/21/19 [Rx] Follow up Appointment(s)/Referral(s): None,Stated [Primary Care Provider] - 1-2 days Patient Instructions/Handouts: Abuse of Alcohol (DC) Discharge Disposition: HOME SELF-CARE
== END 2019-02-21 13:46 | disposition home or self-care (01) ==
LOC: EC 16:31 → 4MS4W 18:52
PROVIDERS: ADMIT Internal Medicine; ATTEND Internal Medicine
DX: F10.231 Alcohol dependence with withdrawal delirium (principal); G93.41 Metabolic encephalopathy; F10.229 Alcohol dependence with intoxication, unspecified; E87.1 Hypo-osmolality and hyponatremia; E86.0 Dehydration; E86.1 Hypovolemia; R44.0 Auditory hallucinations; R44.1 Visual hallucinations; F31.30 Bipolar disorder, current episode depressed, mild or moderate severity, unspecified; Z79.899 Other long term (current) drug therapy; J44.9 Chronic obstructive pulmonary disease, unspecified; F41.9 Anxiety disorder, unspecified; F17.200 Nicotine dependence, unspecified, uncomplicated; Y90.8 Blood alcohol level of 240 mg/100 ml or more; R10.9 Unspecified abdominal pain; D69.6 Thrombocytopenia, unspecified; Z82.5 Family history of asthma and other chronic lower respiratory diseases; Z81.3 Family history of other psychoactive substance abuse and dependence
CPT/HCPCS: 96376 ×3; 96361 ×3; 96375; 82075; 96374; 99285; 36415; 93005; 80048 ×2; 84484; 85025 ×2; 80306; G0378 ×3; G0480; S4990 ×2; J2060 ×3; C9113 ×2; 80320

== ENCOUNTER 2019-03-20 01:23 | Inpatient (IN) | payer MEDICAID, OTHER ==
[2019-03-20] MEDS ORDERED: SODIUM CHLORIDE 0.9% 1,000 ML IV STA (01:34)
[2019-03-20 02:02] LABS: Basophils # (A) 0.1 k/uL (0-0.2); Basophils % (A) 2 %; Eosinophils # (A) 0.1 k/uL (0-0.7); Eosinophils % (A) 2 %; HCT 41.6 % (39.0-53.0); HGB 13.8 gm/dL (13.0-17.5); Lymphocytes % (A) 38 %; MCH 31.4 pg (25.0-35.0); MCHC 33.1 g/dL (31.0-37.0); Mean Platelet Volume 6.2; Monocytes # (A) 0.3 k/uL (0-1.0); Monocytes % (A) 5 %; Neutrophils # (A) 2.6 k/uL (1.3-7.7); Neutrophils % (A) 51 %; RBC 4.38 m/uL (4.30-5.90); RDW 13.2 % (11.5-15.5); WBC 5.2 k/uL (3.8-10.6)
[2019-03-20 02:07] LABS: Platelet Count 274 k/uL (150-450)
[2019-03-20 02:10] LABS: ALT 22 U/L (21-72); AST 42 U/L (17-59); African American GFR (CKD) >90 (>60 ml/min/1.73 sqM); Albumin 4.6 g/dL (3.5-5.0); Alkaline Phosphatase 47 U/L (38-126); Anion Gap 14 mmol/L; Blood Urea Nitrogen 16 mg/dL (9-20); Calcium 9.6 mg/dL (8.4-10.2); Carbon Dioxide 25 mmol/L (22-30); Chloride 104 mmol/L (98-107); Glucose 87 mg/dL (74-99); Sodium 143 mmol/L (137-145); Total Bilirubin 0.3 mg/dL (0.2-1.3)
[2019-03-20 02:13] LABS: Alcohol 248 mg/dL
--- NOTE | 2019-03-20 02:16 | ED ---
Alcohol HPI - General Source: patient, EMS Mode of arrival: EMS Limitations: no limitations <Laura Hughes - Last Filed: 03/20/19 06:12> <Jake Rolon - Last Filed: 03/20/19 15:30> - General Chief Complaint: Alcohol Stated Complaint: ETOH Time Seen by Provider: 03/20/19 01:34 - History of Present Illness Initial Comments: Broderick is a 38-year-old alcoholic male who presents the emergency department today intoxicated stating that he wants to quit drinking any's concern that he is going to withdraw. Patient states that his last drink was yesterday, he states he typically drinks about a gallon of liquor per day. Upon arrival patient stating that he needs Ativan and a sandwich. (Laura Hughes) - Related Data Home Medications Medication Instructions Recorded Confirmed Atomoxetine HCl [Strattera] 80 mg PO QAM 02/19/19 03/20/19 Omeprazole 20 mg PO DAILY PRN 02/19/19 03/20/19 traZODone HCL 300 mg PO HS 02/19/19 03/20/19 Dextroamphetamine/Amphetamine 20 mg PO BID 03/20/19 03/20/19 [Adderall] chlordiazePOXIDE HCl [Librium] 25 mg PO QID 03/20/19 03/20/19 clonazePAM [KlonoPIN] 1 mg PO BID 03/20/19 03/20/19 Previous Rx's Medication Instructions Recorded PARoxetine [Paxil] 20 mg PO HS #7 tab 02/21/19 Thiamine [Vitamin B-1] 100 mg PO DAILY #15 tab 02/21/19 chlordiazePOXIDE HCl [Librium] 50 mg PO QID #34 capsule 03/20/19 Allergies Allergy/AdvReac Type Severity Reaction Status Date / Time No Known Allergies Allergy Verified 02/19/19 17:35 Review of Systems ROS Other: All systems not noted in ROS Statement are negative. <Laura Hughes - Last Filed: 03/20/19 06:12> ROS Other: All systems not noted in ROS Statement are negative. <Jake Rolon - Last Filed: 03/20/19 15:30> ROS Statement: Those systems with pertinent positive or pertinent negative responses have been documented in the HPI. Past Medical History Past Medical History: COPD Additional Past Medical History / Comment(s): Alcoholism History of Any Multi-Drug Resistant Organisms: None Reported Past Surgical History: No Surgical Hx Reported Additional Past Surgical History / Comment(s): Strabismus surgery as a child- Left eye surgery Past Anesthesia/Blood Transfusion Reactions: No Reported Reaction Past Psychological History: Anxiety, Bipolar, Depression Smoking Status: Current every day smoker Past Alcohol Use History: Abuse, Daily, Heavy Past Drug Use History: None Reported - Past Family History Father Additional Family Medical History / Comment(s): Father is alive in his 50s with history of COPD. Sister(s) Additional Family Medical History / Comment(s): He has 5 sisters and one has drug abuse issues. Patient does not have any brothers. He has one 5-year-old daughter. Mother History Unknown: Yes Additional Family Medical History / Comment(s): Mother is alive in her 50s with no major medical problems. <Laura Hughes - Last Filed: 03/20/19 06:12> General Exam Limitations: no limitations <Laura Hughes - Last Filed: 03/20/19 06:12> - General Exam Comments Initial Comments: Physical Exam GENERAL: Malnourished Strong odor of alcohol HENT: Normocephalic, Atraumatic. EYES: PERRL, EOMI PULMONARY: Unlabored respirations. CARDIOVASCULAR: RRR Warm and well perfused extremities ABDOMEN: Non-distended SKIN: No rashes or bruising : Deferred NEUROLOGIC: Alert and oriented Normal speech Normal gait MUSCULOSKELETAL: Moving all extremities with no apparent injury PSYCHIATRIC: Hopeless (Laura Hughes) Course <Jake Rolon - Last Filed: 03/20/19 15:30> Vital Signs 03/20/19 03/20/19 03/20/19 01:33 05:40 14:00 Temperature 99.1 F 98.4 F Pulse Rate 92 80 Respiratory 18 18 20 Rate Blood Pressure 108/74 129/81 O2 Sat by Pulse 97 96 Oximetry - Reevaluation(s) Reevaluation #1: 03/20/19 15:29 The patient was deemed to be sober and was evaluated by psychiatric service. Patient will be admitted for treatment of depression and suicidal ideation. (Jake Rolon) Procedures - [place] Protocol (Time Out) Nurse: Michelle Ochoa <Laura Hughes - Last Filed: 03/20/19 06:12> Medical Decision Making - Lab Data Result diagrams: 03/20/19 01:54 03/20/19 01:54 <Laura Hughes - Last Filed: 03/20/19 06:12> - Lab Data Result diagrams: 03/20/19 01:54 03/20/19 01:54 <Jake Rolon - Last Filed: 03/20/19 15:30> - Medical Decision Making Patient was seen and evaluated upon arrival, patient is clearly intoxicated smell strongly of alcohol stating that he is an alcoholic and is concerned that he will withdraw. Patient also stating that he is hungry needs a sandwich. Upon initial evaluation patient denied any suicidal or homicidal ideation. Upon reevaluation the morning patient stated again that he needs Ativan and that he thinks he is going to withdraw. I offered the patient Librium taper and patient stated that he is going to kill himself because life isn't worth living like this Patient will remain in the emergency department pending evaluation by emergency psychiatric services when sober. (Laura Hughes) - Lab Data Lab Results 03/20/19 03/20/19 Range/Units 01:54 01:54 WBC 5.2 (3.8-10.6) k/uL RBC 4.38 (4.30-5.90) m/uL Hgb 13.8 (13.0-17.5) gm/dL Hct 41.6 (39.0-53.0) % MCV 95.0 (80.0-100.0) fL MCH 31.4 (25.0-35.0) pg MCHC 33.1 (31.0-37.0) g/dL RDW 13.2 (11.5-15.5) % Plt Count 274 D (150-450) k/uL Neutrophils % 51 % Lymphocytes % 38 % Monocytes % 5 % Eosinophils % 2 % Basophils % 2 % Neutrophils # 2.6 (1.3-7.7) k/uL Lymphocytes # 2.0 (1.0-4.8) k/uL Monocytes # 0.3 (0-1.0) k/uL Eosinophils # 0.1 (0-0.7) k/uL Basophils # 0.1 (0-0.2) k/uL Sodium 143 (137-145) mmol/L Potassium 4.0 (3.5-5.1) mmol/L Chloride 104 (98-107) mmol/L Carbon Dioxide 25 (22-30) mmol/L Anion Gap 14 mmol/L BUN 16 (9-20) mg/dL Creatinine 0.73 (0.66-1.25) mg/dL Est GFR (CKD-EPI)AfAm >90 (>60 ml/min/1.73 sqM) Est GFR (CKD-EPI)NonAf >90 (>60 ml/min/1.73 sqM) Glucose 87 (74-99) mg/dL Calcium 9.6 (8.4-10.2) mg/dL Total Bilirubin 0.3 (0.2-1.3) mg/dL AST 42 (17-59) U/L ALT 22 (21-72) U/L Alkaline Phosphatase 47 (38-126) U/L Total Protein 8.0 (6.3-8.2) g/dL Albumin 4.6 (3.5-5.0) g/dL Serum Alcohol 248 H* mg/dL Disposition Is patient prescribed a controlled substance at d/c from ED?: No <Laura Hughes - Last Filed: 03/20/19 06:12> <Jake Rolon - Last Filed: 03/20/19 15:30> Clinical Impression: Alcohol intoxication, Depression, Suicidal ideation Disposition: TRANSFER TO PSYCH HOSP/UNIT Instructions (If sedation given, give patient instructions): Alcohol Int oxication (ED) Prescriptions: chlordiazePOXIDE HCl [Librium] 50 mg PO QID #34 capsule Referrals: None,Stated [Primary Care Provider] - 1-2 days
[2019-03-20] MEDS ORDERED: chlordiazePOXIDE 25 MG CAP PO STA (06:14)
[2019-03-20] MEDS ORDERED: LORazepam 2 MG/ML INJ IV STA ×2 (11:38→15:00)
[2019-03-20] MEDS ORDERED: ZIPRASIDONE 20 MG VIAL IM PRN (16:09)
[2019-03-20] MEDS ORDERED: MAG HYDROX/AL HYDROX/SIMETH 30 ML CUP PO PRN (16:09)
[2019-03-20] MEDS ORDERED: MAGNESIUM HYDROXIDE 2,400 MG/10 ML CUP PO PRN (16:09)
[2019-03-20] MEDS ORDERED: PANTOPRAZOLE 40 MG TABLET PO PRN (16:13)
[2019-03-20 16:33] VITALS: BMI 17.6
[2019-03-20] MEDS: chlordiazePOXIDE 25 MG CAP PO SCH ×2 (17:04→21:10)
--- NOTE | 2019-03-20 17:44 | XR ---
EXAMINATION TYPE: XR chest 1V portable DATE OF EXAM: 03/20/2019 COMPARISON: 10/01/2018 HISTORY: Alcohol withdrawal TECHNIQUE: Single frontal view of the chest is obtained. FINDINGS: Heart and mediastinum are normal. Lungs are clear. Diaphragm is normal. Bony thorax appear s normal. IMPRESSION: Normal chest. No change.
--- NOTE | 2019-03-20 18:56 | P.MDCNMH ---
History of Present Illness H&P Date: 03/20/19 Chief Complaint: Complain of right lower jaw pain from dental caries. This 38-year-old male with past medical history significant for GERD, poor dentition, depression, alcoholism and smoking addiction who was admitted to mental unit for acute alcohol intoxication requesting detox as an inpatient. Upon admission patient was noted to have elevated temperature of 100.3. Patient stated that he has been on antibiotics for partial. Of time because of his poor dentition and pain in the right lower jaw area. Patient also said that off and on he feels palpitation for years and hot and cold flashes. He stated that he has loose stools at times which happened earlier today twice and he has not had any stools since then. Patient also stated that when he smokes he had some coughing spells and he spits little bit yellow phlegm but does not have chronic cough with sputum. No other issues were brought up by the patient or the nurses. Patient denies headache, numbness, lightheadedness, chest pain, diaphoresis, nausea, vomiting and denies rest of the review system. Review of Systems 12 point review of system was essentially negative other than mentioned in HPI. Past Medical History Past Medical History: COPD, GERD/Reflux Additional Past Medical History / Comment(s): Alcoholism , pt has scoliosis as a child History of Any Multi-Drug Resistant Organisms: None Reported Past Surgical History: No Surgical Hx Reported Additional Past Surgical History / Comment(s): Strabismus surgery as a child- Left eye surgery. blind in left eye Past Anesthesia/Blood Transfusion Reactions: No Reported Reaction Past Psychological History: Anxiety, Bipolar, Depression Additional Psychological History / Comment(s): Patient states he has been diagnosed with bipolar. Smoking Status: Current some day smoker Past Alcohol Use History: Abuse, Daily, Heavy Additional Past Alcohol Use History / Comment(s): Patient is a smoker one pack per day since he was 15 years of age. He denies any street drug or marijuana use. He drinks one pint one day, then a 1/5th the next Past Drug Use History: Heroin Additional Drug Use History / Comment(s): fentanyl- use 03-19-19. - Past Family History Father Additional Family Medical History / Comment(s): Father is alive in his 50s with history of COPD. Sister(s) Additional Family Medical History / Comment(s): He has 5 sisters and one has drug abuse issues. Patient does not have any brothers. He has one 5-year-old daughter. Mother History Unknown: Yes Additional Family Medical History / Comment(s): Mother is alive in her 50s with no major medical problems. Medications and Allergies Home Medications Medication Instructions Recorded Confirmed Type Atomoxetine HCl [Strattera] 80 mg PO QAM 02/19/19 03/20/19 History Omeprazole 20 mg PO DAILY PRN 02/19/19 03/20/19 History traZODone HCL 300 mg PO HS 02/19/19 03/20/19 History PARoxetine [Paxil] 20 mg PO HS #7 tab 02/21/19 03/20/19 Rx Thiamine [Vitamin B-1] 100 mg PO DAILY #15 tab 02/21/19 03/20/19 Rx Dextroamphetamine/Amphetamine 20 mg PO BID 03/20/19 03/20/19 History [Adderall] chlordiazePOXIDE HCl [Librium] 25 mg PO QID 03/20/19 03/20/19 History chlordiazePOXIDE HCl [Librium] 50 mg PO QID #34 capsule 03/20/19 Rx clonazePAM [KlonoPIN] 1 mg PO BID 03/20/19 03/20/19 History Allergies Allergy/AdvReac Type Severity Reaction Status Date / Time No Known Allergies Allergy Verified 02/19/19 17:35 Physical Exam Vitals: Vital Signs Temp Pulse Pulse Resp BP BP Pulse Ox 03/20/19 16:16 100.3 F H 98 18 102/67 03/20/19 15:49 98.0 F 86 20 130/78 98 03/20/19 14:00 20 03/20/19 05:40 98.4 F 80 18 129/81 96 03/20/19 01:33 99.1 F 92 18 108/74 97 Intake and Output 03/20/19 03/20/19 03/20/19 06:59 14:59 22:59 Other: Weight 68.039 kg 55.8 kg - Constitutional General appearance: cooperative, no acute distress - EENT Eyes: EOMI, PERRLA, poor dentition (With dental carries and tender right lower pre-molar area.), normal appearance ENT: hearing grossly normal, NA/AT - Neck Neck: no lymphadenopathy, normal ROM, no rigidity, no stridor, no thyromegaly - Respiratory Respiratory: bilateral: diminished, rales (Coarse and scattered.), rhonchi (C oarse and scattered.), negative: dullness, wheezing - Cardiovascular Rhythm: regular Heart sounds: normal: S1, S2 Abnormal Heart Sounds: no systolic murmur, no diastolic murmur, no S3 Gallop, no S4 Gallop - Gastrointestinal General gastrointestinal: no distended, normal bowel sounds, no rigid, soft, no tenderness - Integumentary Integumentary: normal - Neurologic Neurologic: CNII-XII intact (No focal neuro deficits noted.) - Psychiatric Psychiatric: A&O x's 3, appropriate affect Cranial Nerve Examination - Cranial Nerves Cranial Nerve I- Olfactory: Intact Cranial Nerve II- Optic: Intact Cranial Nerve III- Oculomotor: Intact Cranial Nerve IV- Trochlear: Intact Cranial Nerve V- Trigeminal: Intact Cranial Nerve - Abducens: Intact Cranial Nerve VII- Facial: Intact Cranial Nerve VIII- Auditory: Intact Cranial Nerve IX- Glossopharyngeal: Intact Cranial Nerve X- Vagus: Intact Cranial Nerve XI- Accessory: Intact Cranial Nerve XII- Hypoglossal: Intact Results CBC & Chem 7: 03/20/19 01:54 03/20/19 01:54 Labs: Abnormal Lab Results - Last 24 Hours (Table) 03/20/19 Range/Units 01:54 Serum Alcohol 248 H* mg/dL Chest x-ray: report reviewed (No acute process.) Assessment and Plan (1) Infected dental carries Current Visit: Yes Status: Acute Priority: High Code(s): K02.9 - DENTAL CARIES, UNSPECIFIED; K04.7 - PERIAPICAL ABSCESS WITHOUT SINUS SNOMED Code(s): 01081313 (2) GERD (gastroesophageal reflux disease) Current Visit: Yes Status: Acute Priority: Medium Code(s): K21.9 - GASTRO- ESOPHAGEAL REFLUX DISEASE WITHOUT ESOPHAGITIS SNOMED Code(s): 381835936 (3) Alcohol intoxication Current Visit: Yes Status: Acute Priority: High Code(s): F10.929 - ALCOHOL USE, UNSPECIFIED WITH INTOXICATION, UNSPECIFIED SNOMED Code(s): 66395936 (4) Alcohol use disorder Current Visit: Yes Status: Chronic Priority: High Code(s): ZEP2160 - SNOMED Code(s): 8032892 (5) Major depressive disorder, recurrent episode, severe Current Visit: Yes Status: Chronic Priority: High Code(s): F33.2 - MAJOR DEPRESSV DISORDER, RECURRENT SEVERE W/O PSYCH FEATURES SNOMED Code(s): 943966859731 (6) Tobacco abuse Current Visit: Yes Status: Acute Priority: High Code(s): Z72.0 - TOBACCO USE SNOMED Code(s): 984172062 Plan: Patient is having fever along with evidence of the infected dental caries, I will start him on amoxicillin 500 mg 3 times daily for 10 days. Patient urine analysis will be also be checked to rule out urinary tract infection although there is no clinical or physical evidence of urinary tract infection at this time. Oral proton pump inhibitor will also be continued for his GERD symptoms. Patient's psych medications were continued by the mental health unit team and I will start him on nicotine patch for smoking/nicotine cravings. Patient will also be started on a scheduled albuterol inhaler to decrease the bronchospasms and rhonchi that was not is on examination. Patient does have remote history of COPD and is currently smoker. Time with Patient: Less than 30
[2019-03-20] MEDS: ALBUTEROL INHALER 60 PUFF/8 GM INHALER INHALATION SCH (19:54)
[2019-03-20] MEDS ORDERED: PARoxetine 20 MG TAB PO SCH (21:00)
[2019-03-20] MEDS: traZODone HCL 100 MG TAB PO SCH (21:10)
[2019-03-21] MEDS: AMOXICILLIN 500 MG CAP PO SCH ×3 (05:52→15:29)
[2019-03-21 08:39] LABS: ALT 26 U/L (21-72); AST 42 U/L (17-59); African American GFR (CKD) >90 (>60 ml/min/1.73 sqM); Albumin 4.3 g/dL (3.5-5.0); Alkaline Phosphatase 37 U/L (38-126); Anion Gap 8 mmol/L; Blood Urea Nitrogen 17 mg/dL (9-20); Calcium 9.7 mg/dL (8.4-10.2); Carbon Dioxide 24 mmol/L (22-30); Chloride 108 mmol/L (98-107); Cholesterol 184 mg/dL (<200); Glucose 96 mg/dL (74-99); HDL Cholesterol 86 mg/dL (40-60); LDL Cholesterol,Calculated 83 mg/dL (0-99); Potassium 4.3 mmol/L (3.5-5.1); Sodium 140 mmol/L (137-145); Total Bilirubin 0.7 mg/dL (0.2-1.3); Total Protein 7.7 g/dL (6.3-8.2); Triglycerides 75 mg/dL (<150)
[2019-03-21] MEDS: THIAMINE 100 MG TAB PO SCH (09:01)
[2019-03-21] MEDS: NICOTINE 21MG/24HR PATCH TRANSDERM SCH (09:01)
[2019-03-21] MEDS: chlordiazePOXIDE 25 MG CAP PO SCH ×3 (09:01→21:43)
[2019-03-21] MEDS: ALBUTEROL INHALER 60 PUFF/8 GM INHALER INHALATION SCH ×3 (09:02→20:45)
[2019-03-21] MEDS: SERTRALINE 50 MG TAB PO SCH (11:34)
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
[2019-03-21] MEDS: ACETAMINOPHEN TAB 325 MG TAB PO PRN ×2 (11:58→21:44)
[2019-03-21] MEDS ORDERED: BENZOCAINE 20 % GEL 15 GM TUBE MM PRN (17:48)
[2019-03-21] MEDS: traZODone HCL 100 MG TAB PO SCH (21:43)
[2019-03-22] MEDS: traMADol 50 MG TAB PO PRN ×4 (05:42→23:48)
[2019-03-22] MEDS: THIAMINE 100 MG TAB PO SCH (08:01)
[2019-03-22] MEDS: ALBUTEROL INHALER 60 PUFF/8 GM INHALER INHALATION SCH ×3 (08:01→21:20)
[2019-03-22] MEDS: NICOTINE 21MG/24HR PATCH TRANSDERM SCH (08:01)
[2019-03-22] MEDS: SERTRALINE 50 MG TAB PO SCH (08:01)
[2019-03-22] MEDS: AMOXICILLIN 500 MG CAP PO SCH ×3 (08:01→16:17)
[2019-03-22] MEDS: ACETAMINOPHEN TAB 325 MG TAB PO PRN ×2 (08:04→19:15)
[2019-03-22 08:27] LABS: Basophils # (A) 0.1 k/uL (0-0.2); Basophils % (A) 1 %; Eosinophils # (A) 0.2 k/uL (0-0.7); Eosinophils % (A) 4 %; HCT 40.4 % (39.0-53.0); HGB 13.2 gm/dL (13.0-17.5); Lymphocytes # (A) 2.2 k/uL (1.0-4.8); Lymphocytes % (A) 39 %; MCH 31.3 pg (25.0-35.0); MCHC 32.8 g/dL (31.0-37.0); MCV 95.2 fL (80.0-100.0); Monocytes # (A) 0.2 k/uL (0-1.0); Monocytes % (A) 4 %; Neutrophils # (A) 2.9 k/uL (1.3-7.7); Neutrophils % (A) 50 %; Platelet Count 207 k/uL (150-450); RBC 4.24 m/uL (4.30-5.90); RDW 13.1 % (11.5-15.5); WBC 5.8 k/uL (3.8-10.6)
[2019-03-22] MEDS: chlordiazePOXIDE 25 MG CAP PO SCH ×2 (09:03→21:20)
--- NOTE | 2019-03-22 11:13 | P.PN ---
Progress Note - Text Interval history: The patient is found in the hallway he follows me to an interview room. He indicates he has nausea because he is withdrawing from his [place]. The patient presented to the hospital again reporting suicidal ideation in the context of alcohol intoxication. He states that's he is prescribed Adderall and [place] and possibly a benzodiazepine as outpatient and wants those medications restarted. He was recently on this mental health unit for similar presentation. He indicates he did not follow through with outpatient care. He was able to sleep last night indicates his appetite is decreased Status exam: The patient is a thin male appearing older than his stated age. He ambulates slowly without ataxia. He is dressed in his own clothing hygiene grooming adequate. He has appropriate eye contact speech is fluent and spontaneous nonpressured. He reports no suicidal or homicidal ideation intent or plan. He reports no auditory or visual hallucinations or any specific delusions. He demonstrates no verbal or physical aggressiveness. He spends most of the session trying to convince me to restart a stimulant and [place]. There is no observed evidence of psychosis. He demonstrates no repetitive involuntary movements. Insight and judgment limited. Plan: The patient will continue on the Zoloft. He was recently placed on Paxil but states he had side effects from it. We will reduce the Librium to 25 mg twice daily. His last 3 CIWA scores have been 0. We will not restart [place] or Adderall. He is considering treatment at [facility] for inpatient chemical dependency treatment. We will monitor him for safety and encourage participation in the milieu. Vital signs reviewed.
[2019-03-22] MEDS: ARTIFICIAL TEARS-HYPROMELLOSE DROPS 15 ML BTL BOTH EYES PRN ×2 (11:38→19:14)
[2019-03-22 19:03] LABS: Hemoglobin A1C 5.2 % (4.0-6.0)
[2019-03-22] MEDS: traZODone HCL 100 MG TAB PO SCH (21:20)
[2019-03-23] MEDS: AMOXICILLIN 500 MG CAP PO SCH ×5 (00:15→23:04)
[2019-03-23] MEDS: NICOTINE 21MG/24HR PATCH TRANSDERM SCH (08:52)
[2019-03-23] MEDS: ALBUTEROL INHALER 60 PUFF/8 GM INHALER INHALATION SCH ×3 (08:52→20:22)
[2019-03-23] MEDS: chlordiazePOXIDE 25 MG CAP PO SCH ×2 (08:52→20:21)
[2019-03-23] MEDS: SERTRALINE 50 MG TAB PO SCH (08:53)
[2019-03-23] MEDS: ARTIFICIAL TEARS-HYPROMELLOSE DROPS 15 ML BTL BOTH EYES PRN (08:53)
[2019-03-23] MEDS: THIAMINE 100 MG TAB PO SCH (08:54)
[2019-03-23] MEDS: traMADol 50 MG TAB PO PRN ×3 (08:56→20:21)
--- NOTE | 2019-03-23 12:46 | P.PN ---
Progress Note - Text Interval history: The patient is found in the hallway he follows me to an interview room. He reports continued frustration that he is not on [place]. He asked to go on the Nicorette gum instead of the nicotine patch. He indicates he slept last night staff report he slept about 5-6 hours. Appetite stable. He indicates he attended all groups. He has no questions regarding his psychotropic medication. He did call access for placement at [place] and is awaiting a placement date. Mental status exam: The patient is alert he is dressed in his own clothing. He is ambulating slowly. Eye contact is intermittent. He is soft-spoken. He reports frustration that he is not on [place]. He reports no suicidal ideation intent or plan. No homicidal ideation intent or plan. He reports no auditory or visual hallucinations or any specific delusions. There is no observed evidence of psychosis hypomania or michelle. Insight and judgment limited. Affect is bland. He is oriented to person place and date. Plan: The patient will continue on his current psychotropic medications. We will monitor him for safety and encourage participation in the milieu. Vital signs reviewed. The Librium can most likely be discontinued tomorrow. We will continue to pursue a placement date at [place] for him.
[2019-03-23] MEDS: NICOTINE POLACRILEX 2 MG GUM BUCCAL PRN ×3 (14:29→20:23)
[2019-03-23] MEDS: traZODone HCL 100 MG TAB PO SCH (20:21)
[2019-03-24] MEDS: ALBUTEROL INHALER 60 PUFF/8 GM INHALER INHALATION SCH ×3 (08:25→21:37)
[2019-03-24] MEDS: THIAMINE 100 MG TAB PO SCH (08:26)
[2019-03-24] MEDS: SERTRALINE 50 MG TAB PO SCH (08:26)
[2019-03-24] MEDS: AMOXICILLIN 500 MG CAP PO SCH ×3 (08:26→23:32)
[2019-03-24] MEDS: traMADol 50 MG TAB PO PRN ×3 (08:27→23:30)
[2019-03-24] MEDS: chlordiazePOXIDE 25 MG CAP PO SCH ×2 (08:28→22:16)
[2019-03-24] MEDS: NICOTINE POLACRILEX 2 MG GUM BUCCAL PRN ×4 (08:29→17:12)
[2019-03-24] MEDS ORDERED: SERTRALINE 50 MG TAB PO STA (10:26)
[2019-03-24] MEDS: PANTOPRAZOLE 40 MG TABLET PO SCH (10:35)
--- NOTE | 2019-03-24 11:28 | P.PN ---
Progress Note - Text Progress Note Date: 03/24/19 Interval History: Patient was seen lying in his bed and was agreeable to streaked insurance underwriter in the office. Patient states that he feels his mood is gradually improving along with his anxiety. Patient continues to state that he wants to be placed back on benzodiazepines and also was preoccupied with other controlled medications. Patient states that he is in pain however does not appear to be wincing at all during conversation and states that the pain is in his jaw. Patient was requesting to be placed back on [place] and is currently now on tramadol. He states that he is going to groups and participate. He states that he slept about 5 hours last night however stating that "it's not enough". At this time patient denies any suicidal or homical ideations, intent or plan. Patient denies any auditory, visual hallucinations and denies any paranoia or delusions. Patient denies any side effects from the medications and has been compliant with meds. Mental Status Exam: General Appearance: Patient appears to be older than stated age is alert, uncooperative and manipulative. Improving hygiene and grooming. Behavior: Patient is calmly seated without any agitated behavior. Patient is not irritable today Speech: Patient's speech is fluent and nonpressured. Soft tone Mood/Affect: Patient reports their mood is depressed/anxious, improving mildly, affect is congruent and constricted. Suicidality/Homicidality: Patient denies having any suicidal or homicidal ideation intent or plan. Perceptions: Patient denies any auditory or visual hallucinations. Thought content/process: There is no evidence of any delusional thought content, patient is fixated/preoccupied with medications including controlled substances. Memory and concentration: AOX3, grossly intact for the purposes of this session. Judgment and insight: poor/superficial Assessment Depressive disorder unspecified rule out alcohol induced mood disorder Anxiety disorder unspecified Alcohol abuse Nicotine dependence Personality disorder unspecified likely cluster B Plan: -Patient continues to meet criteria for inpatient psychiatric admission for symptom stabilization and safety. Patient has signed adult voluntary form and medication consent and was placed in patient's chart. -Medications: We'll increase Zoloft to 100 mg daily for mood/anxiety. We'll continue with trazodone 300 mg nightly for mood/insomnia. Patient to be continued on Librium 25 mg twice a day for alcohol withdrawal/anxiety. Will continue titrating down Librium. Melatonin added, 3 mg nightly for sleep. -I discussed once again in great detail with the patient about benzodiazepines and other controlled substances which patient is seeking and at this time will avoid prescribing as patient is abusing alcohol and is impulsive. -Continue with thiamine, MVM for etoh use -When necessary Geodon for agitation/aggression. -NRT -Nicorette gum -SW on board for discharge planning. Patient states that he currently has an application and is waiting to hear back from [facility] for inpatient substance rehab.
[2019-03-24] MEDS: ARTIFICIAL TEARS-HYPROMELLOSE DROPS 15 ML BTL BOTH EYES PRN (17:11)
[2019-03-24] MEDS: MELATONIN 3 MG TABLET PO SCH (22:16)
[2019-03-24] MEDS: traZODone HCL 100 MG TAB PO SCH (22:16)
[2019-03-25] MEDS: THIAMINE 100 MG TAB PO SCH (08:44)
[2019-03-25] MEDS: traMADol 50 MG TAB PO PRN ×4 (08:44→23:09)
[2019-03-25] MEDS: chlordiazePOXIDE 25 MG CAP PO SCH (08:44)
[2019-03-25] MEDS: SERTRALINE 100 MG TAB PO SCH (08:44)
[2019-03-25] MEDS: NICOTINE POLACRILEX 2 MG GUM BUCCAL PRN ×4 (08:46→23:10)
[2019-03-25] MEDS: PANTOPRAZOLE 40 MG TABLET PO SCH (08:46)
[2019-03-25] MEDS: ALBUTEROL INHALER 60 PUFF/8 GM INHALER INHALATION SCH ×3 (09:16→21:29)
[2019-03-25] MEDS: ACETAMINOPHEN TAB 325 MG TAB PO PRN ×2 (09:17→16:38)
[2019-03-25] MEDS: AMOXICILLIN 500 MG CAP PO SCH ×3 (09:17→23:09)
[2019-03-25] MEDS ORDERED: hydrOXYzine PAMOATE 25 MG CAP PO PRN (12:48)
--- NOTE | 2019-03-25 12:48 | P.PN ---
Progress Note - Text Progress Note Date: 03/25/19 Interval History: Patient was seen near the nurse's station talking about other patients and was agreeable to speak with copywriter in the office. Patient states that he feels his mood is gradually improving along with his anxiety and patient was agreeable to be titrated down off the Librium. Patient was less preoccupied with his medications this morning and asked more about discharge. He states that she would like to take the bus back home the day before he goes to rehab and to pack his close before going to [facility]. He states that he wants to continue working on his sobriety. He states that he is going to groups and participate however patient was superficial about any details of group. He states that he slept fairly last night and offers no overnight complaints. At this time patient denies any suicidal or homical ideations, intent or plan. Patient denies any auditory, visual hallucinations and denies any paranoia or delusions. Patient denies any side effects from the medications and has been compliant with meds. Mental Status Exam: General Appearance: Patient appears to be older than stated age is alert, mildly more cooperative this morning. Improving hygiene and grooming. Behavior: Patient is calmly seated without any agitated behavior. Patient is not irritable today Speech: Patient's speech is fluent and nonpressured. Soft tone Mood/Affect: Patient reports their mood is depressed/anxious, improving mildly, affect is congruent and constricted. Suicidality/Homicidality: Patient denies having any suicidal or homicidal ideation intent or plan. Perceptions: Patient denies any auditory or visual hallucinations. Thought content/process: There is no evidence of any delusional thought content, patient is less fixated/preoccupied with medications Memory and concentration: AOX3, grossly intact for the purposes of this session. Judgment and insight: poor/superficial, mildly improving. Assessment Depressive disorder unspecified rule out alcohol induced mood disorder Anxiety disorder unspecified Alcohol abuse Nicotine dependence Personality disorder unspecified likely cluster B Plan: -Patient continues to meet criteria for inpatient psychiatric admission for symptom stabilization and safety. Patient has signed adult voluntary form and medication consent and was placed in patient's chart. -Medications: We'll continue with Zoloft to 100 mg daily for mood/anxiety. We'll increase as tolerated. We'll continue with trazodone 300 mg nightly for mood/insomnia. We will decrease Librium to 20 mg twice a day for alcohol withdrawal/anxiety. Melatonin added, 3 mg nightly for sleep. Vistaril 25 mg every 6 hours for anxiety when necessary. -Continue with thiamine, MVM for etoh use -When necessary Geodon for agitation/aggression. -NRT -Nicorette gum -SW on board for discharge planning. Patient has an intake date at [facility] for rehab on Sunday however patient would like to be discharged prior to this when clinically stable to get his things together and close ready for rehab. Likely discharge in 1-2 days.
[2019-03-25] MEDS: MELATONIN 3 MG TABLET PO SCH (21:09)
[2019-03-25] MEDS: traZODone HCL 100 MG TAB PO SCH (21:09)
[2019-03-25] MEDS: ARTIFICIAL TEARS-HYPROMELLOSE DROPS 15 ML BTL BOTH EYES PRN (23:11)
[2019-03-26] MEDS: PANTOPRAZOLE 40 MG TABLET PO SCH (08:40)
[2019-03-26] MEDS: ALBUTEROL INHALER 60 PUFF/8 GM INHALER INHALATION SCH ×3 (08:40→21:31)
[2019-03-26] MEDS: SERTRALINE 100 MG TAB PO SCH (08:41)
[2019-03-26] MEDS: AMOXICILLIN 500 MG CAP PO SCH ×3 (08:41→23:06)
[2019-03-26] MEDS: THIAMINE 100 MG TAB PO SCH (08:41)
[2019-03-26] MEDS: traMADol 50 MG TAB PO PRN ×3 (08:42→19:47)
[2019-03-26] MEDS: NICOTINE POLACRILEX 2 MG GUM BUCCAL PRN ×5 (10:48→23:11)
[2019-03-26] MEDS ORDERED: IBUPROFEN 600 MG TAB PO PRN (12:20)
[2019-03-26] MEDS: busPIRone HCl 10 MG TAB PO PRN ×2 (12:36→19:47)
--- NOTE | 2019-03-26 12:36 | P.PN ---
Progress Note - Text Progress Note Date: 03/26/19 Interval History: Patient was seen near the nurse's station talking about other patients and was agreeable to speak with fha underwriter in the office. Patient states that he feels his mood has been improving. Patient was less preoccupied today with his anxiety and also medications. Patient spoke about his daughter and her upcoming birthday and states that he is going to be away from her while he is in rehab. Patient states that he wants to work on his sobriety and states that "if you're ready for dinner ready for" referring to talking other patients about rehab and sobriety. Patient was agreeable to continue titrating down his Librium. He states that he is looking forward to discharge tomorrow and will need to take the bus back home as his father cannot pick him up. He states that he is going to some groups and participate. He states that he is speaking to other patients on the unit and getting along with others. He states that he slept fairly last night and offers no overnight complaints. At this time patient denies any suicidal or homical ideations, intent or plan. Patient denies any auditory, visual hallucinations and denies any paranoia or delusions. Patient denies any side effects from the medications and has been compliant with meds. Mental Status Exam: General Appearance: Patient appears to be older than stated age is alert, mildly more cooperative this morning. Improving hygiene and grooming. Behavior: Patient is calmly seated without any agitated behavior. Speech: Patient's speech is fluent and nonpressured. Soft tone Mood/Affect: Patient reports his mood is improving mildly, affect is congruent and constricted. Suicidality/Homicidality: Patient denies having any suicidal or homicidal ideation intent or plan. Perceptions: Patient denies any auditory or visual hallucinations. Thought content/process: There is no evidence of any delusional thought content, patient is less fixated/preoccupied with medications Memory and concentration: AOX3, grossly intact for the purposes of this session. Judgment and insight: mildly improving. Assessment Depressive disorder unspecified rule out alcohol induced mood disorder Anxiety disorder unspecified Alcohol abuse Nicotine dependence Personality disorder unspecified likely cluster B Plan: -Patient continues to meet criteria for inpatient psychiatric admission for symptom stabilization and safety. Patient has signed adult voluntary form and medication consent and was placed in patient's chart. -Medications: We'll continue with Zoloft to 100 mg daily for mood/anxiety. We'll continue with trazodone 300 mg nightly for mood/insomnia. We will continue to decrease Librium for alcohol withdrawal/anxiety. Melatonin added, 3 mg nightly for sleep. Vistaril 25 mg every 6 hours for anxiety when necessary. -Continue with thiamine, MVM for etoh use -When necessary Geodon for agitation/aggression. -NRT -Nicorette gum -SW on board for discharge planning. Patient has an intake date at [facility] for rehab on Sunday. Nicolefrancoiseangie would like to be discharged tomorrow to gather his belongings before going to rehab.
[2019-03-26] MEDS: traZODone HCL 100 MG TAB PO SCH (21:34)
[2019-03-26] MEDS: MELATONIN 3 MG TABLET PO SCH (21:34)
[2019-03-27 00:46] VITALS: BP 115/70; PULSE 86; RESP 16; TEMP 98.6
[2019-03-27] MEDS: ALBUTEROL INHALER 60 PUFF/8 GM INHALER INHALATION SCH ×2 (08:49→12:28)
[2019-03-27] MEDS: SERTRALINE 100 MG TAB PO SCH (08:49)
[2019-03-27] MEDS: AMOXICILLIN 500 MG CAP PO SCH (08:49)
[2019-03-27] MEDS: THIAMINE 100 MG TAB PO SCH (08:49)
[2019-03-27] MEDS: PANTOPRAZOLE 40 MG TABLET PO SCH (08:49)
[2019-03-27] MEDS: traMADol 50 MG TAB PO PRN ×2 (08:51→13:25)
[2019-03-27] MEDS: NICOTINE POLACRILEX 2 MG GUM BUCCAL PRN ×3 (08:54→13:25)
[2019-03-27] MEDS ORDERED: busPIRone HCl 10 MG TAB PO PRN (10:24)
[2019-03-27] MEDS ORDERED: SERTRALINE 50 MG TAB PO STA (10:27)
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
[2019-03-28] MEDS ORDERED: SERTRALINE 100 MG TAB PO SCH (09:00)
== END 2019-03-27 14:00 | disposition home or self-care (01) | DRG 885 ==
LOC: EC 01:23 → 3MHU 15:37
PROVIDERS: ADMIT Psychiatry & Neurology Psychiatry; ATTEND Psychiatry & Neurology Psychiatry
DX: F33.2 Major depressive disorder, recurrent severe without psychotic features (principal); R45.851 Suicidal ideations; F17.200 Nicotine dependence, unspecified, uncomplicated; F41.9 Anxiety disorder, unspecified; F60.9 Personality disorder, unspecified; G47.00 Insomnia, unspecified; J44.9 Chronic obstructive pulmonary disease, unspecified; K08.89 Other specified disorders of teeth and supporting structures; Z79.899 Other long term (current) drug therapy; Z82.5 Family history of asthma and other chronic lower respiratory diseases
CPT/HCPCS: 36415; 71045; 80053; 80061; 80320; 82075; 83036; 84439; 84443; 85025; 96361; 96374; 96376; 99285

== ENCOUNTER 2019-11-29 15:07 | Inpatient (IN) | payer OTHER ==
[2019-11-29] MEDS ORDERED: THIAMINE 100 MG/ML 2 ML VIAL IM STA (15:23)
[2019-11-29] MEDS: LORazepam 2 MG/ML INJ IV PRN ×3 (15:25→22:52)
[2019-11-29] MEDS ORDERED: ACETAMINOPHEN SUPPOSITORY 650 MG SUPP RECTAL STA (15:28)
--- NOTE | 2019-11-29 15:32 | ED ---
General Adult HPI - General Chief complaint: Seizure Stated complaint: Seizure Time Seen by Provider: 11/29/19 15:08 Source: police, EMS Mode of arrival: EMS Limitations: altered mental status - History of Present Illness Initial comments: Dictation was produced using SHADO dictation software. please excuse any grammatical, word or spelling errors. This patient was cared for during a federal and state declared state of emergency secondary to Covid 19 Chief Complaint: 39-year-old male with past medical history of alcohol use presents after a seizure. History of Present Illness: Patient is a 39-year-old male he has extensive hist ory of significant alcohol abuse. Patient was brought by environmental services associate from the local half-way. Patient is allegedly arrested and under the care of nearby senior living. Patient unable to find a dentist secondary to mental status. Allegedly patient had a witnessed seizure while at the present. Patient's a daily alcohol abuser. Last EtOH intake was estimated to be approximately yesterday afternoon. He has only been under the care of present since yesterday. The ROS documented in this emergency department record has been reviewed and confirmed by me. Those systems with pertinent positive or negative responses have been documented in the HPI. All other systems are other negative and/or noncontributory. PHYSICAL EXAM: General Impression: Alert, lethargic, tremulous HEENT: Normocephalic atraumatic, extra-ocular movements intact, pupils equal and reactive to light bilaterally, dry mucous members Cardiovascular: Tachycardic Chest: no retractions, no tachypnea Abdomen: abdomen soft, non-tender, non-distended, no organomegaly Musculoskeletal: Pulses present and equal in all extremities, no peripheral edema Motor: no focal deficits noted Neurological: CN II-XII grossly intact, no focal motor or sensory deficits noted, moves all tremors grossly, negative Brudzinski's, negative Kernig's Skin: Intact with no visualized rashes ED course: 39 y Old male presents after seizure. Patient has a history of extensive alcohol abuse and history of severe EtOH withdrawal. As upon arrival shows heart rate of 104, rectal temperature 102.9. Oxygen saturation of 90. Patient is tremulous and showing his exam signs of EtOH withdrawal. He is pretty be postictal. Patient given multiple doses of IV Ativan push. Patient showing us improved after 4 mg of IV Ativan. Bright catheter placed. Patient administered rectal Tylenol. Return evaluation obtained. No leukocytosis. He will toe 0.4. White count 27. Patient has waxing and waning platelet counts according to previous lab draws. Coag panel unremarkable. Venous blood gas shows normal pH. Metabolic panel shows BUN 27. Glucose of 70. Lactic acid was 3.0. AST 502, ALT 155, creatinine kinase of 2380. Serum alcohol is negative. Computed tomography scan of the brain shows. Saw him foci of air in the cavernous sinuses likely introduced from IV start. Chest x-ray shows no acute processes. Case was discussed with commissioning engineer Dr. Allred. It was asked whether he recommends the patient be given broad-spectrum antibiotics for coverage of infection secondary to pyrexia. Slightly that his pyrexia is from seizures tremulousness from the EtOH withdrawal. Patient was given rectal Tylenol. An multiple doses of Ativan. Patient also given magnesium and dextrose. Patient did have infectious workup. Dr. Solo and recommends holding off on any antibiotic admission at this time. Patient does not have any symptoms of meningitis. Dr. Allred is willing to accept patient to intensive care unit. Case was discussed with Dr. Rivera who is willing to accept patients care on behalf of of [facility]. EKG interpretation: Poor quality EKG, Ventricular rate 89, QRS 102, QTC 374. No [place] prolongation, no QTC prolongation, no ST or T-wave changes noted. - Related Data Previous Rx's Medication Instructions Recorded chlordiazePOXIDE HCl [Librium] 50 mg PO QID #34 capsule 03/20/19 Albuterol Inhaler (Mhu) [Ventolin 2 puff INHALATION RT-TID #1 puff 03/27/19 Hfa Inhaler (Mhu)] Amoxicillin 500 mg PO Q8HR 4 Days cap 03/27/19 Artificial Tears-Hypromellose 2 drops BOTH EYES QID PRN #2 bottle 03/27/19 [Artificial Tear Drops] Ibuprofen [Motrin] 800 mg PO Q8H PRN 28 Days tab 03/27/19 Melatonin 3 mg PO HS 28 Days tablet 03/27/19 Nicotine Polacrilex [Nicorette] 2 mg BUCCAL Q4HR PRN 10 Days gum 03/27/19 Pantoprazole [Protonix] 40 mg PO BID 28 Days tablet. 03/27/19 Sertraline [Zoloft] 150 mg PO DAILY 28 Days tab 03/27/19 Thiamine [Vitamin B-1] 100 mg PO DAILY 28 Days tab 03/27/19 busPIRone HCl [Buspar] 30 mg PO BID PRN #28 tab 03/27/19 traZODone HCL 300 mg PO HS 28 Days tab 03/27/19 Allergies Allergy/AdvReac Type Severity Reaction Status Date / Time No Known Allergies Allergy Verified 11/29/19 15:22 Review of Systems ROS Statement: Those systems with pertinent positive or pertinent negative responses have been documented in the HPI. ROS Other: All systems not noted in ROS Statement are negative. Past Medical History Past Medical History: COPD, GERD/Reflux, Seizure Disorder Additional Past Medical History / Comment(s): Alcoholism , pt has scoliosis as a child History of Any Multi-Drug Resistant Organisms: None Reported Past Surgical History: No Surgical Hx Reported Additional Past Surgical History / Comment(s): Strabismus surgery as a child- Left eye surgery. blind in left eye Past Anesthesia/Blood Transfusion Reactions: No Reported Reaction Past Psychological History: Anxiety, Bipolar, Depression Smoking Status: Unknown if ever smoked Past Alcohol Use History: Abuse, Daily, Heavy Past Drug Use History: Heroin - Past Family History Father Additional Family Medical History / Comment(s): Father is alive in his 50s with history of COPD. Sister(s) Additional Family Medical History / Comment(s): He has 5 sisters and one has drug abuse issues. Patient does not have any brothers. He has one 5-year-old daughter. Mother History Unknown: Yes Additional Family Medical History / Comment(s): Mother is alive in her 50s with no major medical problems. General Exam Limitations: altered mental status Course Vital Signs 11/29/19 11/29/19 11/29/19 15:22 15:45 16:18 Temperature 102.9 F H 102 F H Pulse Rate 104 H 90 98 Respiratory 18 18 18 Rate Blood Pressure 114/72 107/81 97/75 O2 Sat by Pulse 90 L 98 100 Oximetry Medical Decision Making - Lab Data Result diagrams: 11/29/19 15:15 11/29/19 15:15 Lab Results 11/29/19 11/29/19 11/29/19 Range/Units 15:15 15:15 15:15 WBC 5.8 (3.8-10.6) k/uL RBC 3.84 L (4.30-5.90) m/uL Hgb 12.4 L (13.0-17.5) gm/dL Hct 36.3 L (39.0-53.0) % MCV 94.4 (80.0-100.0) fL MCH 32.4 (25.0-35.0) pg MCHC 34.3 (31.0-37.0) g/dL RDW 14.1 (11.5-15.5) % Plt Count 27 L (150-450) k/uL Neutrophils % 77 % Lymphocytes % 12 % Monocytes % 7 % Eosinophils % 1 % Basophils % 1 % Neutrophils # 4.5 (1.3-7.7) k/uL Lymphocytes # 0.7 L (1.0-4.8) k/uL Monocytes # 0.4 (0-1.0) k/uL Eosinophils # 0.0 (0-0.7) k/uL Basophils # 0.0 (0-0.2) k/uL Manual Slide Review Performed Target Cells Present PT 9.8 (9.0-12.0) sec INR 0.9 (<1.2) APTT 21.8 L (22.0-30.0) sec VBG pH (7.31-7.41) VBG pCO2 (37-51) mmHg VBG HCO3 (24-28) mmol/L Sodium 136 L (137-145) mmol/L Potassium 4.2 (3.5-5.1) mmol/L Chloride 98 (98-107) mmol/L Carbon Dioxide 22 (22-30) mmol/L Anion Gap 16 mmol/L BUN 27 H (9-20) mg/dL Creatinine 0.79 (0.66-1.25) mg/dL Est GFR (CKD-EPI)AfAm >90 (>60 ml/min/1.73 sqM) Est GFR (CKD-EPI)NonAf >90 (>60 ml/min/1.73 sqM) Glucose 70 L (74-99) mg/dL POC Glucose (mg/dL) (75-99) mg/dL POC Glu Director Information ID Plasma Lactic Acid Guillermo (0.7-2.0) mmol/L Calcium 9.9 (8.4-10.2) mg/dL Magnesium 1.4 L (1.6-2.3) mg/dL Total Bilirubin 1.2 (0.2-1.3) mg/dL AST 502 H (17-59) U/L ALT 155 H (4-49) U/L Alkaline Phosphatase 109 (38-126) U/L Creatine Kinase 2380 H* (55-170) U/L Total Protein 8.2 (6.3-8.2) g/dL Albumin 4.9 (3.5-5.0) g/dL Serum Alcohol <10 mg/dL 11/29/19 11/29/19 11/29/19 Range/Units 15:15 15:40 16:32 WBC (3.8-10.6) k/uL RBC (4.30-5.90) m/uL Hgb (13.0-17.5) gm/dL Hct (39.0-53.0) % MCV (80.0-100.0) fL MCH (25.0-35.0) pg MCHC (31.0-37.0) g/dL RDW (11.5-15.5) % Plt Count (150-450) k/uL Neutrophils % % Lymphocytes % % Monocytes % % Eosinophils % % Basophils % % Neutrophils # (1.3-7.7) k/uL Lymphocytes # (1.0-4.8) k/uL Monocytes # (0-1.0) k/uL Eosinophils # (0-0.7) k/uL Basophils # (0-0.2) k/uL Manual Slide Review Target Cells PT (9.0-12.0) sec INR (<1.2) APTT (22.0-30.0) sec VBG pH 7.40 (7.31-7.41) VBG pCO2 36 L (37-51) mmHg VBG HCO3 22 L (24-28) mmol/L Sodium (137-145) mmol/L Potassium (3.5-5.1) mmol/L Chloride (98-107) mmol/L Carbon Dioxide (22-30) mmol/L Anion Gap mmol/L BUN (9-20) mg/dL Creatinine (0.66-1.25) mg/dL Est GFR (CKD-EPI)AfAm (>60 ml/min/1.73 sqM) Est GFR (CKD-EPI)NonAf (>60 ml/min/1.73 sqM) Glucose (74-99) mg/dL POC Glucose (mg/dL) 73 L (75-99) mg/dL POC Glu Director Information Joan Mobley Plasma Lactic Acid Guillermo 3.0 H* (0.7-2.0) mmol/L Calcium (8.4-10.2) mg/dL Magnesium (1.6-2.3) mg/dL Total Bilirubin (0.2-1.3) mg/dL AST (17-59) U/L ALT (4-49) U/L Alkaline Phosphatase (38-126) U/L Creatine Kinase (55-170) U/L Total Protein (6.3-8.2) g/dL Albumin (3.5-5.0) g/dL Serum Alcohol mg/dL Critical Care Time Critical Care Time: Yes Total Critical Care Time: 33 Disposition Clinical Impression: Pyrexia, Alcohol withdrawal Disposition: ADMITTED IP TO THIS [facility] Condition: Critical Referrals: None,Stated [Primary Care Provider] - 1-2 days Decision Time: 16:45
[2019-11-29] MEDS: SODIUM CHLORIDE 0.9% 1,000 ML IV STA ×2 (15:45→16:47)
[2019-11-29 15:57] LABS: Basophils % (A) 1 %; Eosinophils % (A) 1 %; HCT 36.3 % (39.0-53.0); HGB 12.4 gm/dL (13.0-17.5); Lymphocytes # (A) 0.7 k/uL (1.0-4.8); Lymphocytes % (A) 12 %; MCH 32.4 pg (25.0-35.0); MCHC 34.3 g/dL (31.0-37.0); MCV 94.4 fL (80.0-100.0); Mean Platelet Volume 9.7; Monocytes # (A) 0.4 k/uL (0-1.0); Monocytes % (A) 7 %; Neutrophils # (A) 4.5 k/uL (1.3-7.7); Neutrophils % (A) 77 %; RBC 3.84 m/uL (4.30-5.90); RDW 14.1 % (11.5-15.5); WBC 5.8 k/uL (3.8-10.6)
[2019-11-29 16:04] LABS: VBG PH 7.4 (7.31-7.41)
[2019-11-29 16:05] LABS: Platelet Count 27 k/uL (150-450); Target Cells Present
[2019-11-29 16:08] LABS: ALT 155 U/L (4-49); AST 502 U/L (17-59); African American GFR (CKD) >90 (>60 ml/min/1.73 sqM); Albumin 4.9 g/dL (3.5-5.0); Alcohol <10 mg/dL; Alkaline Phosphatase 109 U/L (38-126); Anion Gap 16 mmol/L; Blood Urea Nitrogen 27 mg/dL (9-20); Calcium 9.9 mg/dL (8.4-10.2); Carbon Dioxide 22 mmol/L (22-30); Chloride 98 mmol/L (98-107); Glucose 70 mg/dL (74-99); Magnesium 1.4 mg/dL (1.6-2.3); Non-African American GFR(CKD) >90 (>60 ml/min/1.73 sqM); Potassium 4.2 mmol/L (3.5-5.1); Sodium 136 mmol/L (137-145); Total Bilirubin 1.2 mg/dL (0.2-1.3); Total Protein 8.2 g/dL (6.3-8.2)
[2019-11-29] MEDS ORDERED: LORazepam 2 MG/ML INJ IV STA ×2 (16:11→16:27)
[2019-11-29 16:13] LABS: INR 0.9 (<1.2); Partial Thromboplastin Time 21.8 sec (22.0-30.0); Prothrombin Time 9.8 sec (9.0-12.0)
[2019-11-29 16:16] LABS: Creatine Kinase 2380 U/L (55-170)
--- NOTE | 2019-11-29 16:16 | CT ---
EXAMINATION TYPE: CT brain wo con DATE OF EXAM: 11/29/2019 COMPARISON: 01/08/2019 HISTORY: 39-year-old male EtOH, Seizure TECHNIQUE: Examination was done in axial plane without intravenous contrast. Coronal and sagittal r econstructions performed. CT DLP: 1338.4 mGycm Automated exposure control for dose reduction was used. FINDINGS: There is no evidence of acute intracranial hemorrhage, acute ischemic changes, mass, mass-effect, or extra-axial fluid collection. There is no effacement of cerebral sulci or basal subarachnoid cister ns. There is no hydrocephalus. There is no midline shift. Mcmillan-white matter distinction is preserv ed. Some foci of air within the bilateral cavernous sinuses. Rightward nasal septal deviation. Orbits and globes appear intact. Mastoid air cells are well-pneumat ized. The patient's neck is turned distorting the typical appearance of the upper cervical spine on t he sagittal series. IMPRESSION: No acute intracranial abnormality seen. Foci of air in the bilateral cavernous sinuses. This could busby ve been introduced during peripheral line placement. Correlate for any other potential introduction o f venous air such as from IVDA, penetrating injuries, or facial soft tissue infections.
--- NOTE | 2019-11-29 16:17 | XR ---
EXAMINATION TYPE: XR chest 1V portable DATE OF EXAM: 11/29/2019 Comparison: 03/20/2019 Clinical History: 39-year-old male ETOH seizure Findings: The cardiomediastinal silhouette, aorta, and pulmonary vasculature are within normal limits. Cephali zed vasculature likely due to supine imaging. No consolidation, pneumothorax, or pleural effusion. Impression: Supine imaging. No definite acute process.
[2019-11-29] MEDS ORDERED: DEXTROSE 50% SYRINGE 50 ML IVP STA ×3 (16:24→23:37)
[2019-11-29] MEDS ORDERED: SODIUM CHLORIDE 0.9% 1,000 ML IV STA (16:28)
[2019-11-29 16:34] LABS: Glucose,Whole Blood 73 mg/dL (75-99)
[2019-11-29] MEDS: MAGNESIUM SULFATE-D5W PMX 1 GM in DEXTROSE/WATER 1 100ML.BAG IVPB SCH ×2 (16:57→18:16)
[2019-11-29 17:11] LABS: Glucose,Whole Blood 217 mg/dL (75-99)
[2019-11-29] MEDS: THIAMINE 100 MG TAB PO SCH (17:32)
[2019-11-29 17:41] LABS: Glucose,Whole Blood 138 mg/dL (75-99)
[2019-11-29] MEDS ORDERED: NALOXONE 0.4 MG/ML 1 ML VIAL IV PRN (17:44)
[2019-11-29] MEDS ORDERED: ACETAMINOPHEN SUPPOSITORY 650 MG SUPP RECTAL PRN (17:44)
[2019-11-29] MEDS ORDERED: SODIUM CHLORIDE 0.9% 1,000 ML IV SCH (17:45)
[2019-11-29] MEDS ORDERED: ACETAMINOPHEN IV (For NPO) 680 MG in EMPTY BAG 1 BAG IVPB ONE (18:22)
[2019-11-29] MEDS: PANTOPRAZOLE 40 MG/10 ML VIAL IV SCH (20:00)
[2019-11-29 21:15] LABS: Magnesium 2.3 mg/dL (1.6-2.3)
[2019-11-29 21:48] LABS: Glucose,Whole Blood 63 mg/dL (75-99)
[2019-11-29 21:48] LABS: Glucose,Whole Blood 88 mg/dL (75-99)
[2019-11-29 22:20] LABS: Glucose,Whole Blood 177 mg/dL (75-99)
[2019-11-29] MEDS ORDERED: SODIUM CHLORIDE 0.9% 2,000 ML IV ONE (22:34)
[2019-11-29] MEDS: DEXTROSE 5%-0.9% NACL 1,000 ML IV SCH (22:44)
[2019-11-29 23:31] LABS: Glucose,Whole Blood 66 mg/dL (75-99)
[2019-11-29 23:35] LABS: INR 0.9 (<1.2); Prothrombin Time 9.8 sec (9.0-12.0)
[2019-11-29 23:46] LABS: Partial Thromboplastin Time 19.6 sec (22.0-30.0)
[2019-11-29 23:52] LABS: Glucose,Whole Blood 137 mg/dL (75-99)
[2019-11-29 23:54] LABS: Appearance,Urine Cloudy (Clear); Bacteria,Urine Occasional /hpf; Bilirubin,Urine Negative (Negative); Blood,Urine Moderate (Negative); Color,Urine Yellow; Glucose,Urine (UA) Negative (Negative); Ketones,Urine 2+ (Negative); Leukocyte Esterase,Urine Small (Negative); Nitrite,Urine Negative (Negative); Protein,Urine 1+ (Negative); RBC,Urine 98 /hpf (0-5); Specific Gravity,Urine 1.025 (1.001-1.035); WBC,Urine 12 /hpf (0-5)
[2019-11-30] MEDS: LORazepam 2 MG/ML INJ IV PRN ×13 (00:50→22:28)
--- NOTE | 2019-11-30 01:02 | P.HPIM ---
History of Present Illness H&P Date: 11/29/19 Chief Complaint: Seizures Patient is a 39-year-old male with a known history of daily alcohol abuse, COPD, seizure disorder, GERD and anxiety/depression/bipolar disorder was brought to the hospital by police from local care home. Apparently patient had witnessed a seiz ure while in care home. Patient otherwise a daily alcohol abuser. Last alcohol use was yesterday. Patient is currently sedated and could not provide any history. Laboratory data showed WBC 5.8, hemoglobin 12.4, platelets 27 Sodium 136, potassium 4.2, chloride 98, BUN 27 creatinine 0.79 Blood sugar is 70 Lactic acid 3.0 AST 502, ALT 155 and creatinine kinase 238 0 Procalcitonin 0.75 alcohol level is less than 10 Review of Systems Complete review of systems could not be obtained from the patient. Past Medical History Past Medical History: COPD, GERD/Reflux, Seizure Disorder Additional Past Medical History / Comment(s): Alcoholism , pt has scoliosis as a child History of Any Multi-Drug Resistant Organisms: None Reported Past Surgical History: No Surgical Hx Reported Additional Past Surgical History / Comment(s): Strabismus surgery as a child- Left eye surgery. blind in left eye Past Anesthesia/Blood Transfusion Reactions: No Reported Reaction Past Psychological History: Anxiety, Bipolar, Depression Smoking Status: Unknown if ever smoked Past Alcohol Use History: Abuse, Daily, Heavy Past Drug Use History: Heroin - Past Family History Father Additional Family Medical History / Comment(s): Father is alive in his 50s with history of COPD. Sister(s) Additional Family Medical History / Comment(s): He has 5 sisters and one has drug abuse issues. Patient does not have any brothers. He has one 5-year-old daughter. Mother History Unknown: Yes Additional Family Medical History / Comment(s): Mother is alive in her 50s with no major medical problems. Medications and Allergies Home Medications Medication Instructions Recorded Confirmed Type No Known Home Medications 11/29/19 11/29/19 History Allergies Allergy/AdvReac Type Severity Reaction Status Date / Time No Known Allergies Allergy Verified 11/29/19 19:53 Physical Exam Vitals: Vital Signs Temp Pulse Pulse Resp BP BP Pulse Ox 11/29/19 19:54 84 20 102/72 98 11/29/19 19:30 73 21 98 11/29/19 19:00 38.4 F L 70 24 98 11/29/19 18:30 93 24 102/72 95 11/29/19 18:22 102.6 F H 11/29/19 18:15 75 101/74 11/29/19 18:00 76 111/64 11/29/19 17:33 89 18 111/64 100 11/29/19 16:18 102 F H 98 18 97/75 100 11/29/19 15:45 90 18 107/81 98 11/29/19 15:22 102.9 F H 104 H 18 114/72 90 L Intake and Output 11/29/19 11/29/19 11/29/19 06:59 14:59 22:59 Intake Total 120 Output Total 15 Balance 105 Intake: IV 120 Sodium Chloride 0.9% 1, 120 000 ml @ 120 mls/hr IV . Q8H20M [facility] Rx#:[id number] Output: Urine 15 Uretheral (Bright) 15 Other: Voiding Method Indwelling Catheter Weight 45.359 kg PHYSICAL EXAMINATION: Patient is lying in the bed comfortably,Currently sedated. HEENT: Normocephalic. Neck is supple. Pupils reactive. Nostrils clear. Oral cavity is moist. Ears reveal no drainage. Neck reveals no JVD, carotid bruits, or thyromegaly. CHEST EXAMINATION: Trachea is central. Symmetrical expansion. Lung carson clear to auscultation and percussion. CARDIAC: Normal S1, S2 with no gallops. No murmurs ABDOMEN: Soft. Bowel sounds normal. No organomegaly. No abdominal bruits. Extremities: reveal no edema. No clubbing or cyanosis Neurologically =Currently sedated No gross focal deficits noted Skin: No rash or skin lesions. Psychiatric: non Coperative.Could not be assessed completely. Musculoskeletal: No joint swelling or deformity. Normal range of motion. Results CBC & Chem 7: 11/30/19 04:37 11/30/19 15:50 Labs: Abnormal Lab Results - Last 24 Hours (Table) 11/29/19 11/29/19 11/29/19 Range/Units 15:15 15:15 15:15 RBC 3.84 L (4.30-5.90) m/uL Hgb 12.4 L (13.0-17.5) gm/dL Hct 36.3 L (39.0-53.0) % Plt Count 27 L (150-450) k/uL Lymphocytes # 0.7 L (1.0-4.8) k/uL APTT 21.8 L (22.0-30.0) sec VBG pCO2 (37-51) mmHg VBG HCO3 (24-28) mmol/L Sodium 136 L (137-145) mmol/L BUN 27 H (9-20) mg/dL Glucose 70 L (74-99) mg/dL POC Glucose (mg/dL) (75-99) mg/dL Plasma Lactic Acid Guillermo (0.7-2.0) mmol/L Magnesium 1.4 L (1.6-2.3) mg/dL AST 502 H (17-59) U/L ALT 155 H (4-49) U/L Creatine Kinase 2380 H* (55-170) U/L Amylase (30-110) U/L Lipase (23-300) U/L 11/29/19 11/29/19 11/29/19 Range/Units 15:15 15:40 16:32 RBC (4.30-5.90) m/uL Hgb (13.0-17.5) gm/dL Hct (39.0-53.0) % Plt Count (150-450) k/uL Lymphocytes # (1.0-4.8) k/uL APTT (22.0-30.0) sec VBG pCO2 36 L (37-51) mmHg VBG HCO3 22 L (24-28) mmol/L Sodium (137-145) mmol/L BUN (9-20) mg/dL Glucose (74-99) mg/dL POC Glucose (mg/dL) 73 L (75-99) mg/dL Plasma Lactic Acid Guillermo 3.0 H* (0.7-2.0) mmol/L Magnesium (1.6-2.3) mg/dL AST (17-59) U/L ALT (4-49) U/L Creatine Kinase (55-170) U/L Amylase (30-110) U/L Lipase (23-300) U/L 11/29/19 11/29/19 11/29/19 Range/Units 17:11 17:40 20:45 RBC (4.30-5.90) m/uL Hgb (13.0-17.5) gm/dL Hct (39.0-53.0) % Plt Count (150-450) k/uL Lymphocytes # (1.0-4.8) k/uL APTT (22.0-30.0) sec VBG pCO2 (37-51) mmHg VBG HCO3 (24-28) mmol/L Sodium (137-145) mmol/L BUN (9-20) mg/dL Glucose (74-99) mg/dL POC Glucose (mg/dL) 217 H 138 H (75-99) mg/dL Plasma Lactic Acid Guillermo (0.7-2.0) mmol/L Magnesium (1.6-2.3) mg/dL AST (17-59) U/L ALT (4-49) U/L Creatine Kinase 4641 H* (55-170) U/L Amylase 500 H* (30-110) U/L Lipase 9675 H (23-300) U/L 11/29/19 Range/Units 21:47 RBC (4.30-5.90) m/uL Hgb (13.0-17.5) gm/dL Hct (39.0-53.0) % Plt Count (150-450) k/uL Lymphocytes # (1.0-4.8) k/uL APTT (22.0-30.0) sec VBG pCO2 (37-51) mmHg VBG HCO3 (24-28) mmol/L Sodium (137-145) mmol/L BUN (9-20) mg/dL Glucose (74-99) mg/dL POC Glucose (mg/dL) 63 L (75-99) mg/dL Plasma Lactic Acid Guillermo (0.7-2.0) mmol/L Magnesium (1.6-2.3) mg/dL AST (17-59) U/L ALT (4-49) U/L Creatine Kinase (55-170) U/L Amylase (30-110) U/L Lipase (23-300) U/L Thrombosis Risk Factor Assmnt - DVT/VTE Prophylaxis DVT/VTE Prophylaxis: Pharmacologic Prophylaxis ordered Assessment and Plan Assessment: Acute alcohol withdrawal seizures Acute alcohol withdrawal symptoms. Possible DTs. Acute rhabdomyolysis Severe alcohol abuse Acute pancreatitis alcohol-related Acute alcoholic hepatitis with elevated liver enzymes Thrombocytopenia likely chronic secondary to EtOH abuse GERD COPD not in exacerbation DVT prophylaxis Plan: Patient will be continued on IV hydration and follow-up alcohol withdrawal protocol. Continue with PPI. Continue to replace electrolytes. Nothing by mouth. Seizure precautions and fall precautions. Monitor platelets. Further recommendations based on clinical course. Prognosis guarded. Time with Patient: Greater than 30
[2019-11-30 01:16] LABS: Glucose,Whole Blood 62 mg/dL (75-99)
[2019-11-30] MEDS ORDERED: DEXTROSE 50% SYRINGE 50 ML IVP STA (01:20)
[2019-11-30 01:39] LABS: Glucose,Whole Blood 176 mg/dL (75-99)
[2019-11-30 02:23] LABS: Glucose,Whole Blood 115 mg/dL (75-99)
[2019-11-30 03:20] LABS: Glucose,Whole Blood 95 mg/dL (75-99)
[2019-11-30 04:19] LABS: Glucose,Whole Blood 75 mg/dL (75-99)
[2019-11-30 04:52] LABS: Glucose,Whole Blood 92 mg/dL (75-99)
[2019-11-30 05:04] LABS: Basophils % (A) 0 %; Eosinophils # (A) 0.1 k/uL (0-0.7); Eosinophils % (A) 2 %; HCT 29.6 % (39.0-53.0); Lymphocytes # (A) 0.7 k/uL (1.0-4.8); Lymphocytes % (A) 19 %; MCH 32.6 pg (25.0-35.0); Mean Platelet Volume 9.7; Monocytes # (A) 0.2 k/uL (0-1.0); Monocytes % (A) 6 %; Neutrophils # (A) 2.5 k/uL (1.3-7.7); Neutrophils % (A) 72 %; RBC 3.09 m/uL (4.30-5.90); RDW 14.2 % (11.5-15.5); WBC 3.5 k/uL (3.8-10.6)
[2019-11-30 05:05] LABS: HGB 10.1 gm/dL (13.0-17.5)
[2019-11-30 05:11] LABS: African American GFR (CKD) >90 (>60 ml/min/1.73 sqM); Anion Gap 7 mmol/L; Blood Urea Nitrogen 16 mg/dL (9-20); Calcium 7.4 mg/dL (8.4-10.2); Carbon Dioxide 22 mmol/L (22-30); Chloride 106 mmol/L (98-107); Glucose 79 mg/dL (74-99); Non-African American GFR(CKD) >90 (>60 ml/min/1.73 sqM); Potassium 2.8 mmol/L (3.5-5.1); Sodium 135 mmol/L (137-145)
[2019-11-30 05:19] LABS: Anisocytosis (M) Present; Hypochromasia (M) Present; Target Cells Present
[2019-11-30 05:20] LABS: Platelet Count 16 k/uL (150-450)
[2019-11-30 05:39] LABS: ALT 114 U/L (4-49); AST 373 U/L (17-59); Albumin 3.2 g/dL (3.5-5.0); Alkaline Phosphatase 67 U/L (38-126); Total Bilirubin 0.8 mg/dL (0.2-1.3); Total Protein 5.8 g/dL (6.3-8.2)
[2019-11-30 05:51] LABS: Amylase 472 U/L (30-110)
[2019-11-30 05:52] LABS: Glucose,Whole Blood 84 mg/dL (75-99)
[2019-11-30 06:00] LABS: Creatine Kinase 6219 U/L (55-170)
[2019-11-30] MEDS ORDERED: Potassium Replacement Protocol 1 EACH MISC MISCELLANE PRN (06:01)
[2019-11-30] MEDS: DEXTROSE 5%-0.9% NACL 1,000 ML IV SCH ×4 (06:07→21:47)
[2019-11-30] MEDS: POTASSIUM CHLORIDE 10 MEQ in WATER FOR INJECTION 1 100ML.BAG IVPB SCH ×6 (06:11→13:06)
[2019-11-30 08:13] LABS: Glucose,Whole Blood 85 mg/dL (75-99)
[2019-11-30] MEDS: PANTOPRAZOLE 40 MG/10 ML VIAL IV SCH (10:06)
[2019-11-30 10:18] LABS: Glucose,Whole Blood 92 mg/dL (75-99)
[2019-11-30 12:02] LABS: Glucose,Whole Blood 89 mg/dL (75-99)
--- NOTE | 2019-11-30 12:12 | P.CNPUL ---
History of Present Illness Consult date: 11/30/19 Chief complaint: Altered mental status, pancreatitis, rhabdomyolysis History of present illness: This is a 39-year-old alcoholic who was recently brought into group home and apparently the patient was arrested and taken to custody. While there, the p meagan started having delirium tremens. The patient is alcoholic. He with a seizure and following that the patient was brought into the hospital for further evaluation. He is a long-term alcohol user. The patient overnight got transferred to the intensive care unit. The patient required a total of 6 mg of Ativan for symptoms of delirium tremens. He was febrile with a temperature of 1.4. He had a low urine output. He was and rhabdomyolysis and the CPK was 4641 and currently is up to the consultants on that I . The liver function tests are also abnormal. SGOT is at 502 and SGPT is 155 and a bilirubin is normal. Alkaline phosphatase is nonelevated. Lipase is 9675 and currently down to 8845. Amylase is also elevated yet is declining. LEVEL IS AT 0.7. CREATININE 0.7 WITH A BMI OF 27. LACTIC ACID LEVEL WAS 1.1 AT TIME OF ADMISSION. MAGNESIUM IS AT 2.3. CALCIUM IS 9.9. REST OF THE ELECTROLYTES WERE NORMAL. Overnight, the patient was given IV fluids. The patient is currently on D5 half-normal at the rate of 150 mL an hour. He is also taking thiamine. He has received a total of 4 L of IV fluids and he started making better urine output. No abdominal distention. No abdominal pain. He is quite restless in bed. He still confused. He is changed to the bed and there is an officer in the room. Ultrasound the gallbladder was ordered. Chest x-ray is negative. He is relatively bradycardic which is unexpected for delirium tremens. We'll check thyroid function tests. His last alcohol drink was on 11/28/2019. He did not have any further episodes of seizures since he came to the ICU. Review of Systems ROS unobtainable: due to mental status Past Medical History Past Medical History: COPD, GERD/Reflux, Seizure Disorder Additional Past Medical History / Comment(s): Alcoholism , pt has scoliosis as a child History of Any Multi-Drug Resistant Organisms: None Reported Past Surgical History: No Surgical Hx Reported Additional Past Surgical History / Comment(s): Strabismus surgery as a child- Left eye surgery. blind in left eye Past Anesthesia/Blood Transfusion Reactions: No Reported Reaction Past Psychological History: Anxiety, Bipolar, Depression Smoking Status: Unknown if ever smoked Past Alcohol Use History: Abuse, Daily, Heavy Past Drug Use History: Heroin - Past Family History Father Family Medical History: COPD Additional Family Medical History / Comment(s): Father is alive in his 50s with history of COPD. Sister(s) Additional Family Medical History / Comment(s): He has 5 sisters and one has drug abuse issues. Patient does not have any brothers. He has one 5-year-old daughter. Mother History Unknown: Yes Additional Family Medical History / Comment(s): Mother is alive in her 50s with no major medical problems. Medications and Allergies Home Medications Medication Instructions Recorded Confirmed Type No Known Home Medications 11/29/19 11/29/19 History Allergies Allergy/AdvReac Type Severity Reaction Status Date / Time No Known Allergies Allergy Verified 11/29/19 19:53 Physical Exam Vitals: Vital Signs Temp Pulse Pulse Resp BP BP Pulse Ox 11/30/19 11:00 61 25 H 97/70 99 11/30/19 10:15 65 20 95/60 100 11/30/19 10:00 51 L 22 90/54 99 11/30/19 09:45 44 L 22 100 11/30/19 09:30 20 100/70 100 11/30/19 09:15 46 L 22 100 11/30/19 09:00 47 L 19 101/70 99 11/30/19 08:45 22 101/70 98 11/30/19 08:30 50 L 15 96/62 98 11/30/19 08:15 18 113/47 100 11/30/19 08:00 100.0 F H 49 L 22 103/76 96 11/30/19 07:45 58 L 18 99 11/30/19 07:30 61 20 105/67 100 11/30/19 07:15 27 H 104/71 92 L 11/30/19 07:00 53 L 19 106/69 97 11/30/19 06:45 70 16 101/80 99 11/30/19 06:30 71 22 94/66 98 11/30/19 06:15 47 L 20 99/69 97 11/30/19 06:00 61 18 99/71 95 11/30/19 05:45 65 17 101/71 99 11/30/19 05:30 56 L 12 101/68 98 11/30/19 05:15 58 L 18 97/70 96 11/30/19 05:00 67 27 H 104/69 94 L 11/30/19 04:45 22 104/68 89 L 11/30/19 04:30 52 L 22 101/69 93 L 11/30/19 04:15 54 L 20 108/67 97 11/30/19 04:00 64 19 96/70 100 11/30/19 03:45 68 32 H 96/70 99 11/30/19 03:30 38.1 F L 66 27 H 78/59 97 11/30/19 03:15 85 25 H 104/72 97 11/30/19 03:00 58 L 18 101/70 96 11/30/19 02:45 61 20 100/68 97 11/30/19 02:30 56 L 21 100/68 99 11/30/19 02:15 98/69 98 11/30/19 02:00 62 23 100/77 98 11/30/19 01:45 59 L 14 99 11/30/19 01:30 20 117/65 97 11/30/19 01:15 63 12 106/72 99 11/30/19 01:00 24 115/74 98 11/30/19 00:45 17 96/68 96 11/30/19 00:30 58 L 20 103/58 99 11/30/19 00:15 26 H 100/76 99 11/30/19 00:00 100.2 F H 64 19 94/76 99 11/29/19 23:45 70 20 107/73 98 11/29/19 23:30 56 L 23 102/86 99 11/29/19 23:15 89 24 115/76 99 11/29/19 23:00 80 18 101/76 99 11/29/19 22:45 19 90/58 99 11/29/19 22:30 81 23 102/65 99 20 22:15 79 21 103/68 99 11/29/19 22:00 80 26 H 108/82 99 11/29/19 21:45 63 19 101/73 99 11/29/19 21:30 80 23 92/78 98 11/29/19 21:15 65 22 102/76 99 11/29/19 21:00 66 27 H 100/70 98 11/29/19 20:45 33 H 75/50 98 11/29/19 20:30 67 17 102/76 99 11/29/19 20:15 82 18 106/78 98 11/29/19 20:00 100.6 F H 93 33 H 109/54 98 11/29/19 19:57 83 24 91 L 11/29/19 19:54 84 20 102/72 98 11/29/19 19:30 73 21 98 11/29/19 19:00 38.4 F L 70 24 98 11/29/19 18:30 93 24 102/72 95 11/29/19 18:22 102.6 F H 11/29/19 18:15 75 101/74 11/29/19 18:00 76 111/64 11/29/19 17:33 89 18 111/64 100 11/29/19 16:18 102 F H 98 18 97/75 100 11/29/19 15:45 90 18 107/81 98 11/29/19 15:22 102.9 F H 104 H 18 114/72 90 L Intake and Output 11/29/19 11/30/19 11/30/19 22:59 06:59 14:59 Intake Total 480 2900 950 Output Total 25 450 535 Balance 455 2450 415 Intake: IV 480 2900 950 Dextrose 5%-0.9% NaCl 1, 900 750 000 ml @ 150 mls/hr IV . Q6H40M [facility] Rx#:[id number] Potassium Chloride 10 meq 200 In Water For Injection 1 100ml.bag @ 100 mls/hr IVPB Q1HR [facility] Rx#: [id number] Sodium Chloride 0.9% 1, 480 000 ml @ 120 mls/hr IV . Q8H20M [facility] Rx#:[id number] Sodium Chloride 0.9% 2, 2000 000 ml @ 999 mls/hr IV . Q2H1M [facility] Rx#:[id number] Output: Urine 25 450 535 Uretheral (Bright) 15 Other: Voiding Method Indwelling Catheter Indwelling Catheter Indwelling Catheter # Voids 0 75 Weight 45.359 kg 56.4 kg The patient is thin and frail and he has a body mass index of 17.8. Gen. rika earance, comfortable likely distress. He is a bit restless in bed and he is confused. Unable to give us information and good insight about his condition. He admits to drinking up to 2 pints of alcohol on a daily basis. Head exam was generally normal. There was no scleral icterus or corneal arcus. Mucous membranes were moist. Neck was supple and without jugular venous distension, thyromegaly, or carotid bruits. Carotids were easily palpable bilaterally. There was no adenopathy. Mucous membranes are significantly dry this point in time. Lungs were clear to auscultation and percussion, and with normal diaphragmatic excursion. No wheezes or rales were noted. Cardiac exam revealed the PMI to be normally situated and sized. The rhythm was regular and no extrasystoles were noted during several minutes of auscultation. The first and second heart sounds were normal and physiologic splitting of the second heart sound was noted. There were no murmurs, rubs, clicks, or gallops. Abdominal exam revealed normal bowel sounds. The abdomen was soft, non-tender, and without masses, organomegaly, or appreciable enlargement of the abdominal aorta. Examination of the extremities revealed easily palpable radial, femoral and pedal pulses. There was no cyanosis, clubbing or edema. Examination of the skin revealed no evidence of significant rashes, suspicious appearing nevi or other concerning lesions. Neurologically, the patient is lethargic yet arousable and the patient is confused and he is or 81 at best. and the patient does not have any focal neurological deficit. Cranial nerves are essentially intact. Results - Laboratory Findings CBC and BMP: 11/30/19 04:37 11/30/19 04:37 PT/INR, D-dimer PT 9.8 sec (9.0-12.0) 11/29/19 22:51 INR 0.9 (<1.2) 11/29/19 22:51 Abnormal lab findings: Abnormal Labs 11/29/19 11/29/19 11/29/19 15:15 15:15 15:15 WBC RBC 3.84 L Hgb 12.4 L Hct 36.3 L Plt Count 27 L Lymphocytes # 0.7 L APTT 21.8 L VBG pCO2 VBG HCO3 Sodium 136 L Potassium BUN 27 H Creatinine Glucose 70 L POC Glucose (mg/dL) Plasma Lactic Acid Guillermo Calcium Magnesium 1.4 L AST 502 H ALT 155 H Creatine Kinase 2380 H* Total Protein Albumin Amylase Lipase Procalcitonin Urine Protein Urine Ketones Urine Blood Ur Leukocyte Esterase Urine RBC Urine WBC Urine Bacteria 11/29/19 11/29/19 11/29/19 15:15 15:15 15:40 WBC RBC Hgb Hct Plt Count Lymphocytes # APTT VBG pCO2 36 L VBG HCO3 22 L Sodium Potassium BUN Creatinine Glucose POC Glucose (mg/dL) Plasma Lactic Acid Guillermo 3.0 H* Calcium Magnesium AST ALT Creatine Kinase Total Protein Albumin Amylase Lipase Procalcitonin 0.75 H Urine Protein Urine Ketones Urine Blood Ur Leukocyte Esterase Urine RBC Urine WBC Urine Bacteria 11/29/19 11/29/19 11/29/19 16:32 17:11 17:40 WBC RBC Hgb Hct Plt Count Lymphocytes # APTT VBG pCO2 VBG HCO3 Sodium Potassium BUN Creatinine Glucose POC Glucose (mg/dL) 73 L 217 H 138 H Plasma Lactic Acid Guillermo Calcium Magnesium AST ALT Creatine Kinase Total Protein Albumin Amylase Lipase Procalcitonin Urine Protein Urine Ketones Urine Blood Ur Leukocyte Esterase Urine RBC Urine WBC Urine Bacteria 11/29/19 11/29/19 11/29/19 20:45 21:47 22:19 WBC RBC Hgb Hct Plt Count Lymphocytes # APTT VBG pCO2 VBG HCO3 Sodium Potassium BUN Creatinine Glucose POC Glucose (mg/dL) 63 L 177 H Plasma Lactic Acid Guillermo Calcium Magnesium AST ALT Creatine Kinase 4641 H* Total Protein Albumin Amylase 500 H* Lipase 9675 H Procalcitonin Urine Protein Urine Ketones Urine Blood Ur Leukocyte Esterase Urine RBC Urine WBC Urine Bacteria 11/29/19 11/29/19 11/29/19 22:51 23:00 23:30 WBC RBC Hgb Hct Plt Count Lymphocytes # APTT 19.6 L VBG pCO2 VBG HCO3 Sodium Potassium BUN Creatinine Glucose POC Glucose (mg/dL) 66 L Plasma Lactic Acid Guillermo Calcium Magnesium AST ALT Creatine Kinase Total Protein Albumin Amylase Lipase Procalcitonin Urine Protein 1+ H Urine Ketones 2+ H Urine Blood Moderate H Ur Leukocyte Esterase Small H Urine RBC 98 H Urine WBC 12 H Urine Bacteria Occasional H 11/29/19 11/30/19 11/30/19 23:51 01:16 01:37 WBC RBC Hgb Hct Plt Count Lymphocytes # APTT VBG pCO2 VBG HCO3 Sodium Potassium BUN Creatinine Glucose POC Glucose (mg/dL) 137 H 62 L 176 H Plasma Lactic Acid Guillermo Calcium Magnesium AST ALT Creatine Kinase Total Protein Albumin Amylase Lipase Procalcitonin Urine Protein Urine Ketones Urine Blood Ur Leukocyte Esterase Urine RBC Urine WBC Urine Bacteria 11/30/19 11/30/19 11/30/19 02:21 04:37 04:37 WBC 3.5 L RBC 3.09 L Hgb 10.1 L Hct 29.6 L Plt Count 16 L* Lymphocytes # 0.7 L APTT VBG pCO2 VBG HCO3 Sodium 135 L Potassium 2.8 L BUN Creatinine 0.56 L Glucose POC Glucose (mg/dL) 115 H Plasma Lactic Acid Guillermo Calcium 7.4 L Magnesium AST 373 H ALT 114 H Creatine Kinase 6219 H* Total Protein 5.8 L Albumin 3.2 L Amylase 472 H* Lipase 8845 H Procalcitonin Urine Protein Urine Ketones Urine Blood Ur Leukocyte Esterase Urine RBC Urine WBC Urine Bacteria - Diagnostic Findings Chest x-ray: image reviewed Assessment and Plan Plan: 1 chronic alcoholism 2 alcohol withdrawal seizure and the patient only had one episode 3 acute rhabdomyolysis secondary to above 4 acute alcoholic pancreatitis 5 fever secondary to above 6 delirium tremens secondary to withdrawal 7 chronic alcoholic thrombocytopenia 8 smoker 9 possible COPD 10 possible substance abuse Plan Continue with the IV fluids with D5 saline at the rate of 150 mL an hour. The patient is well resuscitated for now Continue thiamine Ativan per CIWA protocol for delirium tremens Monitor CPK Monitor amylase and lipase and obtain ultrasound the gallbladder Aspiration precautions Keep the head of the bed elevated Seizure precautions IV Protonix Will add subcu heparin for DVT prophylaxis Monitor the electrolytes Monitor the platelet count We'll continue to follow.
[2019-11-30] MEDS ORDERED: HEPARIN SODIUM,PORCINE 5,000 UNIT/ML 1 ML VIAL SQ SCH (12:15)
[2019-11-30] MEDS: THIAMINE 500 MG in SODIUM CHLORIDE 0.9% 100 ML IVPB SCH ×2 (12:30→20:11)
--- NOTE | 2019-11-30 12:57 | US ---
EXAMINATION TYPE: US abdomen comp/pelvis limited DATE OF EXAM: 11/30/2019 COMPARISON: NONE CLINICAL HISTORY: pancreatitis. Difficult and limited exam as patient is not cooperative, cannot take a deep breath in and hold. Patient states he is NPO at time of exam EXAM MEASUREMENTS: Liver Length: 15.8 cm Gallbladder Wall: 0.4 cm CBD: 0.4 cm Spleen: 7.2 cm Right Kidney: 10.5 x 4.5 x 5.0 cm Left Kidney: 10.1 x 5.5 x 5.3 cm Pancreas: wnl as visualized Liver: Echogenic echotexture Gallbladder: contracted, wall appears thickened CBD: limited visualization due to overlying bowel gas and patient unable to hold breath. wnl as visu alized Spleen: limited visualization due to overlying bowel gas and patient unable to hold breath. wnl as v isualized Right Kidney: No hydronephrosis or masses seen Left Kidney: No hydronephrosis or masses seen Upper IVC: wnl Abd Aorta: wnl as visualized Bladder: patient has fuentes Visualized portions of the pancreas are normal. The liver is normal in size without biliary dilatation. The gallbladder is contracted. The gallbladder wall measures 4 mm but this is unreliable in the face of a contracted gallbladder. No definite calculi are seen. The distal common hepatic duct measures 4 mm. The spleen is normal in size. Both kidneys appear normal. Visualized portions of aorta and IVC are unremarkable. There is a Fuentes catheter within the bladder. IMPRESSION: GALLBLADDER WALL THICKENING OF QUESTIONABLE SIGNIFICANCE WITH A MILES GALLBLADDER.
[2019-11-30 14:56] LABS: Glucose,Whole Blood 133 mg/dL (75-99)
[2019-11-30] MEDS ORDERED: THIAMINE 100 MG TAB PO SCH (16:00)
[2019-11-30 16:16] LABS: Glucose,Whole Blood 96 mg/dL (75-99)
[2019-11-30 18:24] LABS: Glucose,Whole Blood 130 mg/dL (75-99)
[2019-11-30 20:16] LABS: Glucose,Whole Blood 138 mg/dL (75-99)
[2019-11-30 22:21] LABS: Glucose,Whole Blood 118 mg/dL (75-99)
[2019-11-30] MEDS: DEXMEDETOMIDINE/0.9% NACL(PMX) 400 MCG in EMPTY BAG 1 BAG IV SCH (23:30)
[2019-11-30 23:52] LABS: Glucose,Whole Blood 114 mg/dL (75-99)
--- NOTE | 2019-12-01 00:49 | P.PN ---
Subjective Progress Note Date: 11/30/19 Principal diagnosis: DTs Acute alcoholic withdrawal seizures Acute pancreatitis Patient is a 39-year-old male with a known history of daily alcohol abuse, COPD, seizure disorder, GERD and anxiety/depression/bipolar disorder was brought to the hospital by police from local [facility]. Apparently patient had witnessed a seizure while in [facility]. Patient otherwise a daily alcohol abuser. Last alcohol use was yesterday. Patient is currently sedated and could not provide any history. Laboratory data showed WBC 5.8, hemoglobin 12.4, platelets 27 Sodium 136, potassium 4.2, chloride 98, BUN 27 creatinine 0.79 Blood sugar is 70 Lactic acid 3.0 AST 502, ALT 155 and creatinine kinase 238 0 Procalcitonin 0.75 alcohol level is less than 10 11/30/2019 Currently being monitored in the MICU due to DTs. Patient is currently lying in the bed comfortably. Still agitated and not cooperative. Currently restrained. Awake alert and oriented. Denied any complaints of chest pain or shortness of. No fever no chills. WBC 3.5, hemoglobin 10.1 and platelets 16 Sodium 135, potassium 2.8 and BUN 16, creatinine 0.56 CK 6219, amylase 472, lipase 8845 TSH within normal limits. Current medications reviewed. Objective - Vital Signs Vital signs: Vital Signs Temp 100.4 F H 11/30/19 20:00 Pulse 56 L 11/30/19 22:00 Resp 19 11/30/19 22:00 BP 107/89 11/30/19 22:00 Pulse Ox 100 11/30/19 22:00 Intake & Output 11/30/19 11/30/19 12/01/19 06:59 18:59 06:59 Intake Total 3380 2400 700 Output Total 460 1850 1050 Balance 2920 550 -350 Weight 56.4 kg 56.4 kg Intake: IV 3380 2400 700 Dextrose 5%-0.9% NaCl 1, 900 1800 600 000 ml @ 150 mls/hr IV . Q6H40M [facility] Rx#:[id number] Potassium Chloride 10 meq 600 In Water For Injection 1 100ml.bag @ 100 mls/hr IVPB Q1HR [facility] Rx#: [id number] Sodium Chloride 0.9% 1, 480 000 ml @ 120 mls/hr IV . Q8H20M [facility] Rx#:[id number] Sodium Chloride 0.9% 2, 2000 000 ml @ 999 mls/hr IV . Q2H1M [facility] Rx#:[id number] Thiamine 500 mg In Sodium 100 Chloride 0.9% 100 ml @ 200 mls/hr IVPB Q8H [facility] Rx#:[id number] Output: Urine 460 1850 1050 Other: Voiding Method Indwelling Catheter Indwelling Catheter Indwelling Catheter # Voids 75 # Bowel Movements 1 - Exam PHYSICAL EXAMINATION: Patient is lying in the bed comfortably, no acute distress, awake alert and oriented.Currently distended noncooperative.. HEENT: Normocephalic. Neck is supple. Pupils reactive. Nostrils clear. Oral cavity is moist. Ears reveal no drainage. Neck reveals no JVD, carotid bruits, or thyromegaly. CHEST EXAMINATION: Trachea is central. Symmetrical expansion. Lung carson clear to auscultation and percussion. CARDIAC: Normal S1, S2 with no gallops. No murmurs ABDOMEN: Soft. Bowel sounds normal. No organomegaly. No abdominal bruits. Extremities: reveal no edema. No clubbing or cyanosis Neurologically awake, alert, oriented x2-3 with well-coordinated movements. No focal deficits noted Skin: No rash or skin lesions. Psychiatric: nonCoperative. Musculoskeletal: No joint swelling or deformity. Normal range of motion. - Labs CBC & Chem 7: 11/30/19 04:37 11/30/19 15:50 Labs: Abnormal Lab Results - Last 24 Hours (Table) 11/29/19 11/29/19 11/29/19 Range/Units 15:15 22:51 23:00 WBC (3.8-10.6) k/uL RBC (4.30-5.90) m/uL Hgb (13.0-17.5) gm/dL Hct (39.0-53.0) % Plt Count (150-450) k/uL Lymphocytes # (1.0-4.8) k/uL APTT 19.6 L (22.0-30.0) sec Sodium (137-145) mmol/L Potassium (3.5-5.1) mmol/L Creatinine (0.66-1.25) mg/dL POC Glucose (mg/dL) (75-99) mg/dL Calcium (8.4-10.2) mg/dL AST (17-59) U/L ALT (4-49) U/L Creatine Kinase (55-170) U/L Total Protein (6.3-8.2) g/dL Albumin (3.5-5.0) g/dL Amylase (30-110) U/L Lipase (23-300) U/L Procalcitonin 0.75 H (0.02-0.09) ng/mL Urine Protein 1+ H (Negative) Urine Ketones 2+ H (Negative) Urine Blood Moderate H (Negative) Ur Leukocyte Esterase Small H (Negative) Urine RBC 98 H (0-5) /hpf Urine WBC 12 H (0-5) /hpf Urine Bacteria Occasional H (None) /hpf 11/29/19 11/29/19 11/30/19 Range/Units 23:30 23:51 01:16 WBC (3.8-10.6) k/uL RBC (4.30-5.90) m/uL Hgb (13.0-17.5) gm/dL Hct (39.0-53.0) % Plt Count (150-450) k/uL Lymphocytes # (1.0-4.8) k/uL APTT (22.0-30.0) sec Sodium (137-145) mmol/L Potassium (3.5-5.1) mmol/L Creatinine (0.66-1.25) mg/dL POC Glucose (mg/dL) 66 L 137 H 62 L (75-99) mg/dL Calcium (8.4-10.2) mg/dL AST (17-59) U/L ALT (4-49) U/L Creatine Kinase (55-170) U/L Total Protein (6.3-8.2) g/dL Albumin (3.5-5.0) g/dL Amylase (30-110) U/L Lipase (23-300) U/L Procalcitonin (0.02-0.09) ng/mL Urine Protein (Negative) Urine Ketones (Negative) Urine Blood (Negative) Ur Leukocyte Esterase (Negative) Urine RBC (0-5) /hpf Urine WBC (0-5) /hpf Urine Bacteria (None) /hpf 11/30/19 11/30/19 11/30/19 Range/Units 01:37 02:21 04:37 WBC 3.5 L (3.8-10.6) k/uL RBC 3.09 L (4.30-5.90) m/uL Hgb 10.1 L (13.0-17.5) gm/dL Hct 29.6 L (39.0-53.0) % Plt Count 16 L* (150-450) k/uL Lymphocytes # 0.7 L (1.0-4.8) k/uL APTT (22.0-30.0) sec Sodium (137-145) mmol/L Potassium (3.5-5.1) mmol/L Creatinine (0.66-1.25) mg/dL POC Glucose (mg/dL) 176 H 115 H (75-99) mg/dL Calcium (8.4-10.2) mg/dL AST (17-59) U/L ALT (4-49) U/L Creatine Kinase (55-170) U/L Total Protein (6.3-8.2) g/dL Albumin (3.5-5.0) g/dL Amylase (30-110) U/L Lipase (23-300) U/L Procalcitonin (0.02-0.09) ng/mL Urine Protein (Negative) Urine Ketones (Negative) Urine Blood (Negative) Ur Leukocyte Esterase (Negative) Urine RBC (0-5) /hpf Urine WBC (0-5) /hpf Urine Bacteria (None) /hpf 11/30/19 11/30/19 11/30/19 Range/Units 04:37 14:54 18:23 WBC (3.8-10.6) k/uL RBC (4.30-5.90) m/uL Hgb (13.0-17.5) gm/dL Hct (39.0-53.0) % Plt Count (150-450) k/uL Lymphocytes # (1.0-4.8) k/uL APTT (22.0-30.0) sec Sodium 135 L (137-145) mmol/L Potassium 2.8 L (3.5-5.1) mmol/L Creatinine 0.56 L (0.66-1.25) mg/dL POC Glucose (mg/dL) 133 H 130 H (75-99) mg/dL Calcium 7.4 L (8.4-10.2) mg/dL AST 373 H (17-59) U/L ALT 114 H (4-49) U/L Creatine Kinase 6219 H* (55-170) U/L Total Protein 5.8 L (6.3-8.2) g/dL Albumin 3.2 L (3.5-5.0) g/dL Amylase 472 H* (30-110) U/L Lipase 8845 H (23-300) U/L Procalcitonin (0.02-0.09) ng/mL Urine Protein (Negative) Urine Ketones (Negative) Urine Blood (Negative) Ur Leukocyte Esterase (Negative) Urine RBC (0-5) /hpf Urine WBC (0-5) /hpf Urine Bacteria (None) /hpf 11/30/19 11/30/19 Range/Units 20:14 22:20 WBC (3.8-10.6) k/uL RBC (4.30-5.90) m/uL Hgb (13.0-17.5) gm/dL Hct (39.0-53.0) % Plt Count (150-450) k/uL Lymphocytes # (1.0-4.8) k/uL APTT (22.0-30.0) sec Sodium (137-145) mmol/L Potassium (3.5-5.1) mmol/L Creatinine (0.66-1.25) mg/dL POC Glucose (mg/dL) 138 H 118 H (75-99) mg/dL Calcium (8.4-10.2) mg/dL AST (17-59) U/L ALT (4-49) U/L Creatine Kinase (55-170) U/L Total Protein (6.3-8.2) g/dL Albumin (3.5-5.0) g/dL Amylase (30-110) U/L Lipase (23-300) U/L Procalcitonin (0.02-0.09) ng/mL Urine Protein (Negative) Urine Ketones (Negative) Urine Blood (Negative) Ur Leukocyte Esterase (Negative) Urine RBC (0-5) /hpf Urine WBC (0-5) /hpf Urine Bacteria (None) /hpf Microbiology - Last 24 Hours (Table) 11/29/19 15:40 Blood Culture - Preliminary Blood No Growth after 24 hours 11/29/19 23:00 Urine Culture - Preliminary Urine,Voided Assessment and Plan Assessment: Acute alcohol withdrawal seizures Acute DTs. Acute rhabdomyolysis Severe alcohol abuse Acute pancreatitis alcohol-related Acute alcoholic hepatitis with elevated liver enzymes Thrombocytopenia likely chronic secondary to EtOH abuse GERD COPD not in exacerbation DVT prophylaxis Plan: Patient will be continued on IV hydration and follow-up alcohol withdrawal protocol. Continue with PPI. Continue to replace electrolytes. Nothing by mouth. Seizure precautions and fall precautions. Monitor platelets. Further recommendations based on clinical course. Prognosis guarded. Time with Patient: Greater than 30
[2019-12-01 01:59] LABS: Glucose,Whole Blood 138 mg/dL (75-99)
[2019-12-01] MEDS: THIAMINE 500 MG in SODIUM CHLORIDE 0.9% 100 ML IVPB SCH (03:17)
[2019-12-01 03:34] LABS: Magnesium 1.4 mg/dL (1.6-2.3); Phosphorus 3.3 mg/dL (2.5-4.5)
[2019-12-01] MEDS ORDERED: Magnesium Replacement Protocol 1 EACH MISC MISCELLANE PRN (03:48)
[2019-12-01] MEDS: POTASSIUM CHLORIDE 10 MEQ in WATER FOR INJECTION 1 100ML.BAG IVPB SCH ×4 (03:58→07:06)
[2019-12-01] MEDS: MAGNESIUM SULFATE-D5W PMX 1 GM in DEXTROSE/WATER 1 100ML.BAG IVPB SCH ×3 (04:00→06:15)
[2019-12-01 04:13] LABS: Glucose,Whole Blood 95 mg/dL (75-99)
[2019-12-01] MEDS: LORazepam 2 MG/ML INJ IV PRN ×8 (04:35→23:52)
[2019-12-01 05:00] LABS: Basophils % (A) 0 %; Eosinophils # (A) 0.2 k/uL (0-0.7); Eosinophils % (A) 4 %; HCT 33.5 % (39.0-53.0); HGB 11.3 gm/dL (13.0-17.5); Lymphocytes # (A) 0.6 k/uL (1.0-4.8); Lymphocytes % (A) 15 %; MCH 32.2 pg (25.0-35.0); MCHC 33.6 g/dL (31.0-37.0); MCV 95.8 fL (80.0-100.0); Mean Platelet Volume 9.8; Monocytes # (A) 0.2 k/uL (0-1.0); Monocytes % (A) 5 %; Neutrophils % (A) 74 %; RDW 14.2 % (11.5-15.5); WBC 4.1 k/uL (3.8-10.6)
[2019-12-01 05:01] LABS: Platelet Count 23 k/uL (150-450)
[2019-12-01 05:04] LABS: Prothrombin Time 10.2 sec (9.0-12.0)
[2019-12-01 05:10] LABS: ALT 119 U/L (4-49); AST 340 U/L (17-59); African American GFR (CKD) >90 (>60 ml/min/1.73 sqM); Albumin 3.4 g/dL (3.5-5.0); Alkaline Phosphatase 71 U/L (38-126); Anion Gap 8 mmol/L; Blood Urea Nitrogen 7 mg/dL (9-20); Calcium 8.4 mg/dL (8.4-10.2); Carbon Dioxide 17 mmol/L (22-30); Chloride 110 mmol/L (98-107); Glucose 99 mg/dL (74-99); Non-African American GFR(CKD) >90 (>60 ml/min/1.73 sqM); Potassium 3.5 mmol/L (3.5-5.1); Sodium 135 mmol/L (137-145); Total Bilirubin 0.8 mg/dL (0.2-1.3); Total Protein 6.2 g/dL (6.3-8.2)
[2019-12-01 05:31] LABS: Amylase 426 U/L (30-110)
[2019-12-01 05:54] LABS: Creatine Kinase 7670 U/L (55-170)
[2019-12-01 06:05] LABS: Glucose,Whole Blood 126 mg/dL (75-99)
[2019-12-01 08:04] LABS: Glucose,Whole Blood 155 mg/dL (75-99)
[2019-12-01] MEDS: DEXMEDETOMIDINE/0.9% NACL(PMX) 400 MCG in EMPTY BAG 1 BAG IV SCH ×2 (08:24→19:50)
[2019-12-01] MEDS: DEXTROSE 5%-0.9% NACL 1,000 ML IV SCH ×5 (09:32→21:18)
[2019-12-01] MEDS: THIAMINE 100 MG/ML 2 ML VIAL IVP SCH (09:33)
[2019-12-01] MEDS: PANTOPRAZOLE 40 MG/10 ML VIAL IV SCH (09:34)
[2019-12-01 10:45] LABS: Urine Alcohol Negative (Negative); Urine Barbiturate Negative (Negative); Urine Cocaine Negative (Negative); Urine Methadone Negative (Negative); Urine Opiates Negative (Negative); Urine Phencyclidine Negative (Negative)
--- NOTE | 2019-12-01 11:32 | P.PN ---
Subjective Progress Note Date: 12/01/19 Principal diagnosis: Altered mental status, pancreatitis, rhabdomyolysis. This is a 39-year-old alcoholic who was recently brought into detention and apparently the patient was arrested and taken to custody. While there, the patient started having delirium tremens. The patient is alcoholic. He with a seizure and following that the patient was brought into the hospital for further evaluation. He is a long-term alcohol user. The patient overnight got transferred to the intensive care unit. The patient required a total of 6 mg of Ativan for symptoms of delirium tremens. He was febrile with a temperature of 1.4. He had a low urine output. He was and rhabdomyolysis and the CPK was 4641 and currently is up to the consultants on that I 19. The liver function tests are also abnormal. SGOT is at 502 and SGPT is 155 and a bilirubin is normal. Alkaline phosphatase is nonelevated. Lipase is 9675 and currently down to 8845. Amylase is also elevated yet is declining. LEVEL IS AT 0.7. CREATININE 0.7 WITH A BMI OF 27. LACTIC ACID LEVEL WAS 1.1 AT TIME OF ADMISSION. MAGNESIUM IS AT 2.3. CALCIUM IS 9.9. REST OF THE ELECTROLYTES WERE NORMAL.Overnight, the patient was given IV fluids. The patient is currently on D5 half-normal at the rate of 150 mL an hour. He is also taking thiamine. He has received a total of 4 L of IV fluids and he started making better urine output. No abdominal distention. No abdominal pain. He is quite restless in bed. He still con fused. He is changed to the bed and there is an officer in the room. Ultrasound the gallbladder was ordered. Chest x-ray is negative. He is relatively bradycardic which is unexpected for delirium tremens. We'll check thyroid function tests. His last alcohol drink was on 11/28/2019. He did not have any further episodes of seizures since he came to the ICU. Patient was reevaluated today on 12/01/19, remains in the ICU, on seizure precautions. No seizure activity overnight. However the patient became extremely agitated last night, and he was placed on Precedex remains on the CIWA protocol, and he seems quite calm this morning. Patient is not in any form of distress, prefer to be left alone, he is on room air, and in no distress. Considering his labs, I increased his IV fluid to 250 mL per hour, and his CPK seems to be going up, however his lipase and amylase are trending down. Patient denies any shortness of breath, no cough, no wheezing, no nausea, no vomiting, and no abdominal pain. CPK today is over 7600. Amylase is 426 lipase is 5571. Transaminases are a bit elevated. Objective - Vital Signs Vital signs: Vital Signs Temp 97.3 F L 12/01/19 08:00 Pulse 51 L 12/01/19 10:00 Resp 19 12/01/19 10:30 BP 95/77 12/01/19 10:30 Pulse Ox 100 12/01/19 09:30 Intake & Output 11/30/19 12/01/19 12/01/19 18:59 06:59 18:59 Intake Total 2400 2240.716 1078.590 Output Total 1850 3100 680 Balance 550 -859.284 398.590 Weight 56.4 kg 55.4 kg Intake: IV 2400 2200 1000 Dextrose 5%-0.9% NaCl 1, 1800 1500 150 000 ml @ 150 mls/hr IV . Q6H40M [facility]MA Rx#:[id number] Dextrose 5%-0.9% NaCl 1, 750 000 ml @ 250 mls/hr IV . Q4H UMA Rx#:[id number] Magnesium Sulfate-D5w Pmx 300 100 1 gm In Dextrose/Water 1 100ml.bag @ 100 mls/hr IVPB Q1H UMA Rx#: [id number] Potassium Chloride 10 meq 600 300 In Water For Injection 1 100ml.bag @ 100 mls/hr IVPB Q1HR UMA Rx#: [id number] Thiamine 500 mg In Sodium 100 Chloride 0.9% 100 ml @ 200 mls/hr IVPB Q8H UMA Rx#:[id number] Intake, IV Titration 40.716 28.590 Amount Dexmedetomidine/0.9% NaCl 40.716 28.590 (Pmx) 400 mcg In Empty Bag 1 bag @ Titrate IV . Q0M UMA Rx#:[id number] Oral 50 Output: Urine 1850 3100 680 Other: Voiding Method Indwelling Catheter Indwelling Catheter Indwelling Catheter # Bowel Movements 1 - Exam . Gen.: Revealed a 39-year-old white male in no distress, on room air, wishes not to be bothered and left alone. Head exam atraumatic, normocephalic. EENT: supple and without jugular venous distension, thyromegaly, or carotid bruits. Carotids were easily palpable bilaterally. EOMI, no icterus. Dry mucous membranes. Lungs symmetrical chest expansion, clear throughout no crackles or rhonchi or wheezes. Cardiac: Normal S1 and S2, no S3 gallop, no murmur. Abdominal : Soft nontender no megaly no rebound no guarding. extremities : No clubbing edema or cyanosis, good pulses bilaterally. Skin: Good skin turgor, no rashes. Neurologically, arousable, alert oriented 3, no gross focal neurologic deficits. Psychiatric: Depressed mood, blunt affect, normal mental status. Lymphatics: No lymphadenopathy - Labs CBC & Chem 7: 12/01/19 04:37 12/01/19 10:20 Labs: Abnormal Lab Results - Last 24 Hours (Table) 11/30/19 11/30/19 11/30/19 Range/Units 14:54 18:23 20:14 RBC (4.30-5.90) m/uL Hgb (13.0-17.5) gm/dL Hct (39.0-53.0) % Plt Count (150-450) k/uL Lymphocytes # (1.0-4.8) k/uL Sodium (137-145) mmol/L Potassium (3.5-5.1) mmol/L Chloride (98-107) mmol/L Carbon Dioxide (22-30) mmol/L BUN (9-20) mg/dL Creatinine (0.66-1.25) mg/dL POC Glucose (mg/dL) 133 H 130 H 138 H (75-99) mg/dL Magnesium (1.6-2.3) mg/dL AST (17-59) U/L ALT (4-49) U/L Creatine Kinase (55-170) U/L Total Protein (6.3-8.2) g/dL Albumin (3.5-5.0) g/dL Amylase (30-110) U/L Lipase (23-300) U/L 11/30/19 11/30/19 12/01/19 Range/Units 22:20 23:50 01:57 RBC (4.30-5.90) m/uL Hgb (13.0-17.5) gm/dL Hct (39.0-53.0) % Plt Count (150-450) k/uL Lymphocytes # (1.0-4.8) k/uL Sodium (137-145) mmol/L Potassium (3.5-5.1) mmol/L Chloride (98-107) mmol/L Carbon Dioxide (22-30) mmol/L BUN (9-20) mg/dL Creatinine (0.66-1.25) mg/dL POC Glucose (mg/dL) 118 H 114 H 138 H (75-99) mg/dL Magnesium (1.6-2.3) mg/dL AST (17-59) U/L ALT (4-49) U/L Creatine Kinase (55-170) U/L Total Protein (6.3-8.2) g/dL Albumin (3.5-5.0) g/dL Amylase (30-110) U/L Lipase (23-300) U/L 12/01/19 12/01/19 12/01/19 Range/Units 03:09 04:37 04:37 RBC 3.50 L (4.30-5.90) m/uL Hgb 11.3 L (13.0-17.5) gm/dL Hct 33.5 L (39.0-53.0) % Plt Count 23 L (150-450) k/uL Lymphocytes # 0.6 L (1.0-4.8) k/uL Sodium 135 L (137-145) mmol/L Potassium 3.0 L (3.5-5.1) mmol/L Chloride 110 H (98-107) mmol/L Carbon Dioxide 17 L (22-30) mmol/L BUN 7 L (9-20) mg/dL Creatinine 0.44 L (0.66-1.25) mg/dL POC Glucose (mg/dL) (75-99) mg/dL Magnesium 1.4 L (1.6-2.3) mg/dL AST 340 H (17-59) U/L ALT 119 H (4-49) U/L Creatine Kinase 7670 H* (55-170) U/L Total Protein 6.2 L (6.3-8.2) g/dL Albumin 3.4 L (3.5-5.0) g/dL Amylase 426 H* (30-110) U/L Lipase 5571 H (23-300) U/L 12/01/19 12/01/19 Range/Units 06:03 08:02 RBC (4.30-5.90) m/uL Hgb (13.0-17.5) gm/dL Hct (39.0-53.0) % Plt Count (150-450) k/uL Lymphocytes # (1.0-4.8) k/uL Sodium (137-145) mmol/L Potassium (3.5-5.1) mmol/L Chloride (98-107) mmol/L Carbon Dioxide (22-30) mmol/L BUN (9-20) mg/dL Creatinine (0.66-1.25) mg/dL POC Glucose (mg/dL) 126 H 155 H (75-99) mg/dL Magnesium (1.6-2.3) mg/dL AST (17-59) U/L ALT (4-49) U/L Creatine Kinase (55-170) U/L Total Protein (6.3-8.2) g/dL Albumin (3.5-5.0) g/dL Amylase (30-110) U/L Lipase (23-300) U/L Microbiology - Last 24 Hours (Table) 11/29/19 15:40 Blood Culture - Preliminary Blood No Growth after 24 hours 11/29/19 23:00 Urine Culture - Preliminary Urine,Voided Assessment and Plan Assessment: Impression: Alcohol withdrawal seizure Acute rhabdomyolysis secondary to above. Chronic alcoholism. Acute alcoholic pancreatitis and hepatitis. Possible underlying COPD. Recommendation: Increase IV fluid rate to 2 50 mL per hour, for 10 hours, then go back to 1 50 mL per hour. Continue CIWA protocol. Continue to monitor and malaise is unlike basis. Continue to monitor CPK and his renal profile. Continue aspiration precautions and seizures precautions Continue IV Protonix. Continue DVT prophylaxis. Continue to bother in the ICU. We'll continue to follow. Time with Patient: Less than 30
[2019-12-01 11:49] LABS: Glucose,Whole Blood 196 mg/dL (75-99)
[2019-12-01 13:50] LABS: Glucose,Whole Blood 132 mg/dL (75-99)
[2019-12-01 16:04] LABS: Glucose,Whole Blood 216 mg/dL (75-99)
[2019-12-01 18:20] LABS: Glucose,Whole Blood 142 mg/dL (75-99)
[2019-12-01 19:55] LABS: Glucose,Whole Blood 143 mg/dL (75-99)
[2019-12-01] MEDS ORDERED: LORazepam 2 MG/ML INJ IV PRN (21:31)
[2019-12-01 23:57] LABS: Glucose,Whole Blood 131 mg/dL (75-99)
[2019-12-02] MEDS ORDERED: DEXMEDETOMIDINE/0.9% NACL(PMX) 400 MCG in EMPTY BAG 1 BAG IV SCH
--- NOTE | 2019-12-02 00:42 | P.PN ---
Subjective Progress Note Date: 12/01/19 Principal diagnosis: DTs Acute alcoholic withdrawal seizures Acute pancreatitis Patient is a 39-year-old male with a known history of daily alcohol abuse, COPD, seizure disorder, GERD and anxiety/depression/bipolar disorder was brought to the hospital by police from local residential. Apparently patient had witnessed a seizure while in residential. Patient otherwise a daily alcohol abuser. Last alcohol use was yesterday. Patient is currently sedated and could not provide any history. Laboratory data showed WBC 5.8, hemoglobin 12.4, platelets 27 Sodium 136, potassium 4.2, chloride 98, BUN 27 creatinine 0.79 Blood sugar is 70 Lactic acid 3.0 AST 502, ALT 155 and creatinine kinase 238 0 Procalcitonin 0.75 alcohol level is less than 10 11/30/2019 Currently being monitored in the MICU due to DTs. Patient is currently lying in the bed comfortably. Still agitated and not cooperative. Currently restrained. Awake alert and oriented. Denied any complaints of chest pain or shortness of. No fever no chills. WBC 3.5, hemoglobin 10.1 and platelets 16 Sodium 135, potassium 2.8 and BUN 16, creatinine 0.56 CK 6219, amylase 472, lipase 8845 TSH within normal limits. On 12/01/2019 Patient is currently in MICU. Patient is currently being continued alcohol withdrawal protocol. Currently saturating well on room air. Awake alert and oriented but does not want to talk. No complaints of chest pain or shortness breath. No nausea vomiting abdominal pain or diarrhea. IV fluids increased to 250 cc/h. Due to increasing CPK level./ Laboratory data showed WBC 4.1, hemoglobin 11.3 and platelets 23 Sodium 135, chloride 110 and bicarb is 17 BUN 7 and creatinine 0.44 AST 340 ALT 119 CK 7670 Amylase 426 and lipase 5571 Current medications reviewed. Objective - Vital Signs Vital signs: Vital Signs Temp 97.9 F 12/01/19 20:00 Pulse 54 L 12/01/19 20:00 Resp 19 12/01/19 20:00 BP 135/88 12/01/19 20:00 Pulse Ox 100 12/01/19 20:00 Intake & Output 12/01/19 12/01/19 12/02/19 06:59 18:59 06:59 Intake Total 2240.716 3078.590 395.011 Output Total 3100 2745 475 Balance -859.284 333.590 -79.989 Weight 55.4 kg Intake: IV 2200 3000 300 Dextrose 5%-0.9% NaCl 1, 1500 150 000 ml @ 150 mls/hr IV . Q6H40M UMA Rx#:[id number] Dextrose 5%-0.9% NaCl 1, 2750 300 000 ml @ 250 mls/hr IV . Q4H UMA Rx#:[id number] Magnesium Sulfate-D5w Pmx 300 100 1 gm In Dextrose/Water 1 100ml.bag @ 100 mls/hr IVPB Q1H UMA Rx#: [id number] Potassium Chloride 10 meq 300 In Water For Injection 1 100ml.bag @ 100 mls/hr IVPB Q1HR UMA Rx#: [id number] Thiamine 500 mg In Sodium 100 Chloride 0.9% 100 ml @ 200 mls/hr IVPB Q8H UMA Rx#:[id number] Intake, IV Titration 40.716 28.590 95.011 Amount Dexmedetomidine/0.9% NaCl 40.716 28.590 95.011 (Pmx) 400 mcg In Empty Bag 1 bag @ Titrate IV . Q0M UMA Rx#:[id number] Oral 50 Output: Urine 3100 2745 475 Other: Voiding Method Indwelling Catheter Indwelling Catheter Indwelling Catheter - Exam PHYSICAL EXAMINATION: Patient is lying in the bed comfortably, no acute distress, awake alert and oriented.Currently distended noncooperative.. HEENT: Normocephalic. Neck is supple. Pupils reactive. Nostrils clear. Oral cavity is moist. Ears reveal no drainage. Neck reveals no JVD, carotid bruits, or thyromegaly. CHEST EXAMINATION: Trachea is central. Symmetrical expansion. Lung carson clear to auscultation and percussion. CARDIAC: Normal S1, S2 with no gallops. No murmurs ABDOMEN: Soft. Bowel sounds normal. No organomegaly. No abdominal bruits. Extremities: reveal no edema. No clubbing or cyanosis Neurologically awake, alert, oriented x2-3 with well-coordinated movements. No focal deficits noted Skin: No rash or skin lesions. Psychiatric: nonCoperative. Musculoskeletal: No joint swelling or deformity. Normal range of motion. - Labs CBC & Chem 7: 12/01/19 04:37 12/01/19 10:20 Labs: Abnormal Lab Results - Last 24 Hours (Table) 11/30/19 11/30/19 12/01/19 Range/Units 22:20 23:50 01:57 RBC (4.30-5.90) m/uL Hgb (13.0-17.5) gm/dL Hct (39.0-53.0) % Plt Count (150-450) k/uL Lymphocytes # (1.0-4.8) k/uL Sodium (137-145) mmol/L Potassium (3.5-5.1) mmol/L Chloride (98-107) mmol/L Carbon Dioxide (22-30) mmol/L BUN (9-20) mg/dL Creatinine (0.66-1.25) mg/dL POC Glucose (mg/dL) 118 H 114 H 138 H (75-99) mg/dL Magnesium (1.6-2.3) mg/dL AST (17-59) U/L ALT (4-49) U/L Creatine Kinase (55-170) U/L Total Protein (6.3-8.2) g/dL Albumin (3.5-5.0) g/dL Amylase (30-110) U/L Lipase (23-300) U/L 12/01/19 12/01/19 12/01/19 Range/Units 03:09 04:37 04:37 RBC 3.50 L (4.30-5.90) m/uL Hgb 11.3 L (13.0-17.5) gm/dL Hct 33.5 L (39.0-53.0) % Plt Count 23 L (150-450) k/uL Lymphocytes # 0.6 L (1.0-4.8) k/uL Sodium 135 L (137-145) mmol/L Potassium 3.0 L (3.5-5.1) mmol/L Chloride 110 H (98-107) mmol/L Carbon Dioxide 17 L (22-30) mmol/L BUN 7 L (9-20) mg/dL Creatinine 0.44 L (0.66-1.25) mg/dL POC Glucose (mg/dL) (75-99) mg/dL Magnesium 1.4 L (1.6-2.3) mg/dL AST 340 H (17-59) U/L ALT 119 H (4-49) U/L Creatine Kinase 7670 H* (55-170) U/L Total Protein 6.2 L (6.3-8.2) g/dL Albumin 3.4 L (3.5-5.0) g/dL Amylase 426 H* (30-110) U/L Lipase 5571 H (23-300) U/L 12/01/19 12/01/19 12/01/19 Range/Units 06:03 08:02 11:48 RBC (4.30-5.90) m/uL Hgb (13.0-17.5) gm/dL Hct (39.0-53.0) % Plt Count (150-450) k/uL Lymphocytes # (1.0-4.8) k/uL Sodium (137-145) mmol/L Potassium (3.5-5.1) mmol/L Chloride (98-107) mmol/L Carbon Dioxide (22-30) mmol/L BUN (9-20) mg/dL Creatinine (0.66-1.25) mg/dL POC Glucose (mg/dL) 126 H 155 H 196 H (75-99) mg/dL Magnesium (1.6-2.3) mg/dL AST (17-59) U/L ALT (4-49) U/L Creatine Kinase (55-170) U/L Total Protein (6.3-8.2) g/dL Albumin (3.5-5.0) g/dL Amylase (30-110) U/L Lipase (23-300) U/L 12/01/19 12/01/19 12/01/19 Range/Units 13:49 16:02 18:19 RBC (4.30-5.90) m/uL Hgb (13.0-17.5) gm/dL Hct (39.0-53.0) % Plt Count (150-450) k/uL Lymphocytes # (1.0-4.8) k/uL Sodium (137-145) mmol/L Potassium (3.5-5.1) mmol/L Chloride (98-107) mmol/L Carbon Dioxide (22-30) mmol/L BUN (9-20) mg/dL Creatinine (0.66-1.25) mg/dL POC Glucose (mg/dL) 132 H 216 H 142 H (75-99) mg/dL Magnesium (1.6-2.3) mg/dL AST (17-59) U/L ALT (4-49) U/L Creatine Kinase (55-170) U/L Total Protein (6.3-8.2) g/dL Albumin (3.5-5.0) g/dL Amylase (30-110) U/L Lipase (23-300) U/L 12/01/19 Range/Units 19:54 RBC (4.30-5.90) m/uL Hgb (13.0-17.5) gm/dL Hct (39.0-53.0) % Plt Count (150-450) k/uL Lymphocytes # (1.0-4.8) k/uL Sodium (137-145) mmol/L Potassium (3.5-5.1) mmol/L Chloride (98-107) mmol/L Carbon Dioxide (22-30) mmol/L BUN (9-20) mg/dL Creatinine (0.66-1.25) mg/dL POC Glucose (mg/dL) 143 H (75-99) mg/dL Magnesium (1.6-2.3) mg/dL AST (17-59) U/L ALT (4-49) U/L Creatine Kinase (55-170) U/L Total Protein (6.3-8.2) g/dL Albumin (3.5-5.0) g/dL Amylase (30-110) U/L Lipase (23-300) U/L Microbiology - Last 24 Hours (Table) 11/29/19 15:40 Blood Culture - Preliminary Blood No Growth after 48 hours 11/29/19 23:00 Urine Culture - Final Urine,Voided Assessment and Plan Assessment: Acute alcohol withdrawal seizures Acute DTs. Acute rhabdomyolysis Severe alcohol abuse Acute pancreatitis alcohol-related Acute alcoholic hepatitis with elevated liver enzymes Thrombocytopenia likely chronic secondary to EtOH abuse GERD COPD not in exacerbation DVT prophylaxis Plan: Patient will be continued on IV hydration and follow-up alcohol withdrawal pr otocol. Continue with PPI. Continue to replace electrolytes. Nothing by mouth. Seizure precautions and fall precautions. Monitor platelets. Further recommendations based on clinical course. Prognosis guarded. Time with Patient: Greater than 30
[2019-12-02] MEDS: LORazepam 2 MG/ML INJ IV PRN ×12 (00:59→21:49)
[2019-12-02] MEDS: DEXTROSE 5%-0.9% NACL 1,000 ML IV SCH ×3 (03:51→18:34)
[2019-12-02 04:22] LABS: HCT 33.7 % (39.0-53.0); HGB 11.4 gm/dL (13.0-17.5); MCH 32.7 pg (25.0-35.0); MCHC 33.7 g/dL (31.0-37.0); MCV 97.3 fL (80.0-100.0); RBC 3.47 m/uL (4.30-5.90); RDW 14.3 % (11.5-15.5); WBC 3.8 k/uL (3.8-10.6)
[2019-12-02 04:23] LABS: Platelet Count 28 k/uL (150-450)
[2019-12-02 04:29] LABS: ALT 160 U/L (4-49); AST 356 U/L (17-59); African American GFR (CKD) >90 (>60 ml/min/1.73 sqM); Albumin 3.6 g/dL (3.5-5.0); Alkaline Phosphatase 71 U/L (38-126); Anion Gap 7 mmol/L; Blood Urea Nitrogen 7 mg/dL (9-20); Calcium 8.6 mg/dL (8.4-10.2); Carbon Dioxide 19 mmol/L (22-30); Chloride 109 mmol/L (98-107); Glucose 102 mg/dL (74-99); Magnesium 1.4 mg/dL (1.6-2.3); Non-African American GFR(CKD) >90 (>60 ml/min/1.73 sqM); Potassium 3.3 mmol/L (3.5-5.1); Sodium 135 mmol/L (137-145); Total Bilirubin 0.8 mg/dL (0.2-1.3); Total Protein 6.4 g/dL (6.3-8.2)
[2019-12-02] MEDS ORDERED: Magnesium Replacement Protocol 1 EACH MISC MISCELLANE PRN (04:55)
[2019-12-02] MEDS: MAGNESIUM SULFATE-D5W PMX 1 GM in DEXTROSE/WATER 1 100ML.BAG IVPB SCH ×3 (05:44→08:32)
[2019-12-02] MEDS: POTASSIUM CHLORIDE ER 20 MEQ TAB.ER PO SCH ×2 (05:44→07:59)
[2019-12-02 06:09] LABS: Glucose,Whole Blood 128 mg/dL (75-99)
[2019-12-02] MEDS: PANTOPRAZOLE 40 MG/10 ML VIAL IV SCH (08:32)
[2019-12-02] MEDS: THIAMINE 100 MG/ML 2 ML VIAL IVP SCH (08:32)
[2019-12-02] MEDS ORDERED: THIAMINE 250 MG in SODIUM CHLORIDE 0.9% 100 ML IVPB SCH (09:00)
[2019-12-02 09:17] LABS: Creatine Kinase 5232 U/L (55-170)
--- NOTE | 2019-12-02 11:51 | CDI ---
Documentation Clarification Form Date: 12/02/2019 11:09:26 AM From: Maribel Blum RN CCDS Admit Date: 11/29/2019 05:44:00 PM Patient Name: Pola Marie Visit Number: [id number] Discharge Date: ATTENTION: The Clinical Documentation Specialists (CDI) and [facility] Coding Staff appreciate your assistance in clarifying documentation. Please respond to the clarification below the line at the bottom and electronically sign. The CDI & [facility] Coding staff will review the response and follow-up if needed. Please note: Queries are made part of the Legal Health Record. If you have any questions, please contact the author of this message via ITS. Dr. Mary Rivera The patient is thin and frail, and he has a body mass index of 17.8 documented in the GI consult 11/29 History/Risk Factors: 39-year-old male presents to ED by from local [facility] for mental status, allegedly patient had a witnessed seizure. PMH: ETOH abuse, COPD, pancreatitis and seizure disorder. Clinical Indicators: Labs: 11/28 Amylase 500, Lipase 9675, Creatine Kinase 2380 Current BMI: 17.1 Per dietary Consult: Nutrition Assessment: intake poor; The patient is NPO, diet advanced to regular for lunch. Physical findings: appearance underweight. Estimated Nutritional Needs: Weight used to estimate Sheldon body weight. Energy formula 25-30Kcals/Kg; Energy needs 0439-6421 kcal. Estimated protein needs (grams/day): 75-90. Treatment: Dietary Consult: See above Supplements: Ensure Enliv TID with meals In your professional opinion, can you please clarify if these findings signify one of the following conditions? Moderate Protein-Calorie Malnutrition Severe Protein-Calorie Malnutrition Malnutrition, unspecified Other condition, please specify Unable to determine (Last Revision: November 2018) Moderate Protein-Calorie Malnutrition MTDD
--- NOTE | 2019-12-02 12:16 | P.PN ---
Subjective Progress Note Date: 12/02/19 Principal diagnosis: Altered mental status, pancreatitis, rhabdomyolysis. This is a 39-year-old alcoholic who was recently brought into [facility] and apparently the patient was arrested and taken to custody. While there, the patient started having delirium tremens. The patient is alcoholic. He with a seizure and following that the patient was brought into the hospital for further evaluation. He is a long-term alcohol user. The patient overnight got transferred to the intensive care unit. The patient required a total of 6 mg of Ativan for symptoms of delirium tremens. He was febrile with a temperature of 1.4. He had a low urine output. He was and rhabdomyolysis and the CPK was 4641 and currently is up to the consultants on that I 19. The liver function tests are also abnormal. SGOT is at 502 and SGPT is 155 and a bilirubin is normal. Alkaline phosphatase is nonelevated. Lipase is 9675 and currently down to 8845. Amylase is also elevated yet is declining. LEVEL IS AT 0.7. CREATININE 0.7 WITH A BMI OF 27. LACTIC ACID LEVEL WAS 1.1 AT TIME OF ADMISSION. MAGNESIUM IS AT 2.3. CALCIUM IS 9.9. REST OF THE ELECTROLYTES WERE NORMAL.Overnight, the patient was given IV fluids. The patient is currently on D5 half-normal at the rate of 150 mL an hour. He is also taking thiamine. He has received a total of 4 L of IV fluids and he started making better urine output. No abdominal distention. No abdominal pain. He is quite restless in bed. He still con fused. He is changed to the bed and there is an officer in the room. Ultrasound the gallbladder was ordered. Chest x-ray is negative. He is relatively bradycardic which is unexpected for delirium tremens. We'll check thyroid function tests. His last alcohol drink was on 11/28/2019. He did not have any further episodes of seizures since he came to the ICU. Patient was reevaluated today on 12/01/19, remains in the ICU, on seizure precautions. No seizure activity overnight. However the patient became extremely agitated last night, and he was placed on Precedex remains on the CIWA protocol, and he seems quite calm this morning. Patient is not in any form of distress, prefer to be left alone, he is on room air, and in no distress. Considering his labs, I increased his IV fluid to 250 mL per hour, and his CPK seems to be going up, however his lipase and amylase are trending down. Patient denies any shortness of breath, no cough, no wheezing, no nausea, no vomiting, and no abdominal pain. CPK today is over 7600. Amylase is 426 lipase is 5571. Transaminases are a bit elevated. Reevaluated today on 12/02/19, remains in the ICU, he is presently on room air, patient is doing great. He is awake, calm, no symptoms of seizures and no symptoms of alcohol withdrawal. However the patient remains on Precedex which I will discontinue. His IV fluids remains at 1 50 mL per hour because of his rhabdomyolysis, and his CPK today is down to 5232. Lipase is also down to 3682. Renal profile remains normal. Patient is doing actually better than expected. WBC count is 3.8 hemoglobin is 11.4. Patient denies any abdominal pain, denies any shortness of breath cough or wheezing. No seizures since admission. His diet is being advanced today. My plan is to transfer the patient out of the ICU if he doesn't show significant withdrawal symptoms. Objective - Vital Signs Vital signs: Vital Signs Temp 97.2 F L 12/02/19 08:00 Pulse 69 12/02/19 11:00 Resp 16 12/02/19 11:00 BP 111/85 12/02/19 11:00 Pulse Ox 100 12/02/19 11:00 Intake & Output 12/01/19 12/02/19 12/02/19 18:59 06:59 18:59 Intake Total 3078.590 1895.011 850 Output Total 2745 2725 750 Balance 333.590 -829.989 100 Weight 54 kg Intake: IV 3000 1800 850 Dextrose 5%-0.9% NaCl 1, 150 000 ml @ 150 mls/hr IV . Q6H40M [facility] Rx#:[id number] Dextrose 5%-0.9% NaCl 1, 2750 1800 750 000 ml @ 250 mls/hr IV . Q4H [facility] Rx#:[id number] Magnesium Sulfate-D5w Pmx 100 100 1 gm In Dextrose/Water 1 100ml.bag @ 100 mls/hr IVPB Q1H [facility] Rx#: [id number] Intake, IV Titration 28.590 95.011 Amount Dexmedetomidine/0.9% NaCl 28.590 95.011 (Pmx) 400 mcg In Empty Bag 1 bag @ Titrate IV . Q0M [facility] Rx#:[id number] Oral 50 Output: Urine 7133 8039 750 Other: Voiding Method Indwelling Catheter Indwelling Catheter Indwelling Catheter - Exam . Gen.: Revealed a 39-year-old white male in no distress, on room air Head exam atraumatic, normocephalic. EENT: supple and without jugular venous distension, thyromegaly, or carotid bruits. Carotids were easily palpable bilaterally. EOMI, no icterus. Dry mucous membranes. Lungs symmetrical chest expansion, clear throughout no crackles or rhonchi or wheezes. Cardiac: Normal S1 and S2, no S3 gallop, no murmur. Abdominal : Soft nontender no megaly no rebound no guarding. extremities : No clubbing edema or cyanosis, good pulses bilaterally. Skin: Good skin turgor, no rashes. Neurologically, awake, alert oriented 3. No gross focal deficits. Psychiatric: Depressed mood, blunt affect, normal mental status. Lymphatics: No lymphadenopathy - Labs CBC & Chem 7: 12/02/19 03:47 12/02/19 03:47 Labs: Abnormal Lab Results - Last 24 Hours (Table) 12/01/19 12/01/19 12/01/19 Range/Units 13:49 16:02 18:19 RBC (4.30-5.90) m/uL Hgb (13.0-17.5) gm/dL Hct (39.0-53.0) % Plt Count (150-450) k/uL Sodium (137-145) mmol/L Potassium (3.5-5.1) mmol/L Chloride (98-107) mmol/L Carbon Dioxide (22-30) mmol/L BUN (9-20) mg/dL Creatinine (0.66-1.25) mg/dL Glucose (74-99) mg/dL POC Glucose (mg/dL) 132 H 216 H 142 H (75-99) mg/dL Magnesium (1.6-2.3) mg/dL AST (17-59) U/L ALT (4-49) U/L Creatine Kinase (55-170) U/L Lipase (23-300) U/L 12/01/19 12/01/19 12/02/19 Range/Units 19:54 23:56 03:47 RBC (4.30-5.90) m/uL Hgb (13.0-17.5) gm/dL Hct (39.0-53.0) % Plt Count (150-450) k/uL Sodium 135 L (137-145) mmol/L Potassium 3.3 L (3.5-5.1) mmol/L Chloride 109 H (98-107) mmol/L Carbon Dioxide 19 L (22-30) mmol/L BUN 7 L (9-20) mg/dL Creatinine 0.41 L (0.66-1.25) mg/dL Glucose 102 H (74-99) mg/dL POC Glucose (mg/dL) 143 H 131 H (75-99) mg/dL Magnesium 1.4 L (1.6-2.3) mg/dL AST 356 H (17-59) U/L ALT 160 H (4-49) U/L Creatine Kinase (55-170) U/L Lipase (23-300) U/L 12/02/19 12/02/19 12/02/19 Range/Units 03:47 03:47 06:06 RBC 3.47 L (4.30-5.90) m/uL Hgb 11.4 L (13.0-17.5) gm/dL Hct 33.7 L (39.0-53.0) % Plt Count 28 L (150-450) k/uL Sodium (137-145) mmol/L Potassium (3.5-5.1) mmol/L Chloride (98-107) mmol/L Carbon Dioxide (22-30) mmol/L BUN (9-20) mg/dL Creatinine (0.66-1.25) mg/dL Glucose (74-99) mg/dL POC Glucose (mg/dL) 128 H (75-99) mg/dL Magnesium (1.6-2.3) mg/dL AST (17-59) U/L ALT (4-49) U/L Creatine Kinase 5232 H* (55-170) U/L Lipase 3682 H (23-300) U/L Microbiology - Last 24 Hours (Table) 11/29/19 15:40 Blood Culture - Preliminary Blood No Growth after 48 hours 11/29/19 23:00 Urine Culture - Final Urine,Voided Assessment and Plan Assessment: Impression: Alcohol withdrawal seizure Acute rhabdomyolysis secondary to above. Chronic alcoholism. Acute alcoholic pancreatitis and hepatitis. Possible underlying COPD. Recommendation: Continue IV fluid at 1 50 mL per hour. Continue CIWA protocol. Continue to monitor renal profile and CPK. Continue aspiration precautions and seizures precautions Continue IV Protonix. Continue DVT prophylaxis. Transfer patient out of the ICU to a regular medical floor if no signs of withdrawal or agitation. Patient will be off Precedex shortly We'll continue to follow Time with Patient: Less than 30
[2019-12-02 12:20] LABS: Glucose,Whole Blood 111 mg/dL (75-99)
--- NOTE | 2019-12-02 14:44 | P.PN ---
Subjective Progress Note Date: 12/02/19 Principal diagnosis: This is a 39-year-old male who was recently admitted with a witnessed seizure most likely alcohol induced while incarcerated and is being closely monitored. Concurrently remains in the ICU and is maintained on CIWA protocol. Patient also being monitored for delirium tremens along with acute pancreatitis. Patient's creatinine kinase slowly trending down and is currently 5232. Lipase still elevated although trending down at 3682. Potassium slightly low at 3.3 and will be replaced. Magnesium is 1.4 and will be replaced as well. Current kidney functions within normal limits and creatinine is 0.41. Will continue with IV hydration and monitor labs closely. Will continue to encourage increase activity as tolerated and monitor for any signs of withdrawal. Diet has been advanced. Per nursing staff patient continues to be confused and needs redire ction. Will continue to monitor closely. Review of systems: Constitutional: Reports some fatigue, no reports of fever or chills Cardiovascular: No reports of chest pain or palpitations Respiratory: No reports of shortness of breath or cough GI: No reports of nausea, vomiting, or diarrhea : No reports of dysuria or retention Active Medications Acetaminophen (Tylenol Suppository) 650 mg RECTAL Q4HR PRN PRN Reason: Fever And/ Or Mild Pain Dextrose/Sodium Chloride (Dextrose 5%-Ns Iv Soln) 1,000 mls @ 150 mls/hr IV .Q6H40M [facility] Last Admin: 12/02/19 11:24 Dose: 150 mls/hr Documented by: Lorazepam (Ativan) 1 mg IV Q2HR PRN PRN Reason: CIWA 8 or 9 Last Admin: 11/29/19 22:52 Dose: 1 mg Documented by: Lorazepam (Ativan) 1 mg IV Q1HR PRN PRN Reason: CIWA 10 to 15 Last Admin: 12/02/19 13:23 Dose: 1 mg Documented by: Lorazepam (Ativan) 2 mg IV Q10M PRN PRN Reason: CIWA 16 or higher Stop: 12/02/19 21:32 Miscellaneous Information (Potassium Per Protocol) 1 each MISCELLANE DAILY PRN; Protocol PRN Reason: Per Protocol Miscellaneous Information (Magnesium Per Protocol) 1 each MISCELLANE DAILY PRN; Protocol PRN Reason: Per Protocol Naloxone HCl (Narcan) 0.2 mg IV Q2M PRN PRN Reason: Opioid Reversal Pantoprazole Sodium (Protonix) 40 mg IV DAILY [facility] Last Admin: 12/02/19 08:32 Dose: 40 mg Documented by: Thiamine HCl (Vitamin B-1) 100 mg IVP DAILY [facility] Last Admin: 12/02/19 08:32 Dose: 100 mg Documented by: Objective - Vital Signs Vital signs: Vital Signs Temp 99.1 F 12/02/19 12:00 Pulse 70 12/02/19 13:00 Resp 17 12/02/19 13:00 BP 123/102 12/02/19 13:00 Pulse Ox 100 12/02/19 13:00 Intake & Output 12/01/19 12/02/19 12/02/19 18:59 06:59 18:59 Intake Total 3078.590 1158.931 2124 Output Total 2745 2725 1400 Balance 333.590 -829.989 -400 Weight 54 kg Intake: IV 3000 1800 1000 Dextrose 5%-0.9% NaCl 1, 150 000 ml @ 150 mls/hr IV . Q6H40M [facility] Rx#:[id number] Dextrose 5%-0.9% NaCl 1, 2750 1800 900 000 ml @ 250 mls/hr IV . Q4H [facility] Rx#:[id number] Magnesium Sulfate-D5w Pmx 100 100 1 gm In Dextrose/Water 1 100ml.bag @ 100 mls/hr IVPB Q1H [facility] Rx#: [id number] Intake, IV Titration 28.590 95.011 Amount Dexmedetomidine/0.9% NaCl 28.590 95.011 (Pmx) 400 mcg In Empty Bag 1 bag @ Titrate IV . Q0M [facility] Rx#:[id number] Oral 50 Output: Urine 2745 2725 1400 Other: Voiding Method Indwelling Catheter Indwelling Catheter Indwelling Catheter - Exam Gen: This is a 39-year-old male lying in bed, awake, alert and oriented 2-3, confused at times HEENT: Head is atraumatic, normocephalic. Pupils equal, round. Sclerae is anicteric. NECK: Supple. No JVD. No lymphadenopathy. No thyromegaly. LUNGS: Clear to auscultation. No wheezes or rhonchi. No intercostal retractions. HEART: Regular rate and rhythm. No murmur. ABDOMEN: Soft. Bowel sounds are present. No masses. No tenderness. EXTREMITIES: No pedal edema. No calf tenderness. NEUROLOGICAL: Patient is awake, alert and oriented x2-3. Diffusely weak - Labs CBC & Chem 7: 12/02/19 03:47 12/02/19 03:47 Labs: Abnormal Lab Results - Last 24 Hours (Table) 12/01/19 12/01/19 12/01/19 Range/Units 16:02 18:19 19:54 RBC (4.30-5.90) m/uL Hgb (13.0-17.5) gm/dL Hct (39.0-53.0) % Plt Count (150-450) k/uL Sodium (137-145) mmol/L Potassium (3.5-5.1) mmol/L Chloride (98-107) mmol/L Carbon Dioxide (22-30) mmol/L BUN (9-20) mg/dL Creatinine (0.66-1.25) mg/dL Glucose (74-99) mg/dL POC Glucose (mg/dL) 216 H 142 H 143 H (75-99) mg/dL Magnesium (1.6-2.3) mg/dL AST (17-59) U/L ALT (4-49) U/L Creatine Kinase (55-170) U/L Lipase (23-300) U/L 12/01/19 12/02/19 12/02/19 Range/Units 23:56 03:47 03:47 RBC 3.47 L (4.30-5.90) m/uL Hgb 11.4 L (13.0-17.5) gm/dL Hct 33.7 L (39.0-53.0) % Plt Count 28 L (150-450) k/uL Sodium 135 L (137-145) mmol/L Potassium 3.3 L (3.5-5.1) mmol/L Chloride 109 H (98-107) mmol/L Carbon Dioxide 19 L (22-30) mmol/L BUN 7 L (9-20) mg/dL Creatinine 0.41 L (0.66-1.25) mg/dL Glucose 102 H (74-99) mg/dL POC Glucose (mg/dL) 131 H (75-99) mg/dL Magnesium 1.4 L (1.6-2.3) mg/dL AST 356 H (17-59) U/L ALT 160 H (4-49) U/L Creatine Kinase (55-170) U/L Lipase (23-300) U/L 12/02/19 12/02/19 12/02/19 Range/Units 03:47 06:06 12:18 RBC (4.30-5.90) m/uL Hgb (13.0-17.5) gm/dL Hct (39.0-53.0) % Plt Count (150-450) k/uL Sodium (137-145) mmol/L Potassium (3.5-5.1) mmol/L Chloride (98-107) mmol/L Carbon Dioxide (22-30) mmol/L BUN (9-20) mg/dL Creatinine (0.66-1.25) mg/dL Glucose (74-99) mg/dL POC Glucose (mg/dL) 128 H 111 H (75-99) mg/dL Magnesium (1.6-2.3) mg/dL AST (17-59) U/L ALT (4-49) U/L Creatine Kinase 5232 H* (55-170) U/L Lipase 3682 H (23-300) U/L Microbiology - Last 24 Hours (Table) 11/29/19 15:40 Blood Culture - Preliminary Blood No Growth after 48 hours 11/29/19 23:00 Urine Culture - Final Urine,Voided Assessment and Plan Assessment: Acute alcohol withdrawal seizures Acute delirium tremens Acute rhabdomyolysis Severe alcohol abuse Acute pancreatitis alcohol-related Acute alcoholic hepatitis with elevated liver enzymes Thrombocytopenia likely chronic secondary to EtOH abuse GERD COPD not in exacerbation DVT prophylaxis Recommendations and discussion: Recommend continue with current medications, management, and symptomatic treatment. Continue CIWA protocol and monitor for withdrawals. Continue with IV hydration and will repeat a.m. labs. Continue to monitor for seizure and maintain seizure and fall precautions. Patient remains in the ICU and will continue at this time. Patient may likely be transferred out of the ICU if patient is not showing signs of alcohol withdrawal. Diet being advanced and will continue to monitor. Further recommendations to follow. Prognosis is guarded.
[2019-12-02] MEDS: SUBOXONE PO SCH (17:07)
[2019-12-02 17:17] LABS: Glucose,Whole Blood 111 mg/dL (75-99)
[2019-12-02] MEDS ORDERED: ACETAMINOPHEN TAB 500 MG TAB PO PRN (22:08)
[2019-12-02] MEDS ORDERED: ALBUTEROL NEBULIZED 2.5 MG/3 ML INHALATION PRN (23:30)
[2019-12-02] MEDS ORDERED: CALCIUM CARBONATE 500 MG CHEWABLE PO PRN (23:30)
[2019-12-03] MEDS: IBUPROFEN 200 MG TAB PO PRN
[2019-12-03] MEDS: LORazepam 2 MG/ML INJ IV PRN ×4 (00:01→19:56)
[2019-12-03 00:04] LABS: Glucose,Whole Blood 136 mg/dL (75-99)
[2019-12-03 04:23] LABS: Basophils % (A) 1 %; Eosinophils # (A) 0.2 k/uL (0-0.7); Eosinophils % (A) 4 %; HCT 35.9 % (39.0-53.0); HGB 11.7 gm/dL (13.0-17.5); Lymphocytes % (A) 23 %; MCH 32.5 pg (25.0-35.0); MCHC 32.5 g/dL (31.0-37.0); MCV 100.2 fL (80.0-100.0); Macrocytosis Slight; Mean Platelet Volume 9.8; Monocytes # (A) 0.4 k/uL (0-1.0); Monocytes % (A) 9 %; Neutrophils # (A) 2.8 k/uL (1.3-7.7); Neutrophils % (A) 61 %; RBC 3.58 m/uL (4.30-5.90); RDW 14.6 % (11.5-15.5); WBC 4.6 k/uL (3.8-10.6)
[2019-12-03 04:25] LABS: ALT 228 U/L (4-49); AST 368 U/L (17-59); African American GFR (CKD) >90 (>60 ml/min/1.73 sqM); Albumin 3.4 g/dL (3.5-5.0); Alkaline Phosphatase 84 U/L (38-126); Anion Gap 8 mmol/L; Blood Urea Nitrogen 10 mg/dL (9-20); Calcium 8.6 mg/dL (8.4-10.2); Carbon Dioxide 20 mmol/L (22-30); Chloride 108 mmol/L (98-107); Glucose 93 mg/dL (74-99); Magnesium 1.6 mg/dL (1.6-2.3); Non-African American GFR(CKD) >90 (>60 ml/min/1.73 sqM); Potassium 3.3 mmol/L (3.5-5.1); Sodium 136 mmol/L (137-145); Total Bilirubin 0.6 mg/dL (0.2-1.3); Total Protein 6.3 g/dL (6.3-8.2)
[2019-12-03 04:59] LABS: Platelet Count 47 k/uL (150-450)
[2019-12-03 05:17] LABS: Creatine Kinase 3161 U/L (55-170)
[2019-12-03] MEDS: DEXTROSE 5%-0.9% NACL 1,000 ML IV SCH ×3 (05:21→17:50)
[2019-12-03 05:56] LABS: Glucose,Whole Blood 133 mg/dL (75-99)
[2019-12-03] MEDS: SUBOXONE PO SCH ×2 (06:35→18:22)
[2019-12-03] MEDS: POTASSIUM CHLORIDE ER 20 MEQ TAB.ER PO SCH ×2 (06:44→08:37)
[2019-12-03] MEDS: PANTOPRAZOLE 40 MG TABLET PO SCH (08:37)
[2019-12-03] MEDS: THIAMINE 100 MG/ML 2 ML VIAL IVP SCH (08:38)
[2019-12-03 10:13] VITALS: BMI 17.1
[2019-12-03 11:52] LABS: Glucose,Whole Blood 100 mg/dL (75-99)
--- NOTE | 2019-12-03 12:11 | P.PN ---
Subjective Progress Note Date: 12/03/19 Principal diagnosis: Altered mental status, pancreatitis, rhabdomyolysis. This is a 39-year-old alcoholic who was recently brought into [facility] and apparently the patient was arrested and taken to custody. While there, the patient started having delirium tremens. The patient is alcoholic. He with a seizure and following that the patient was brought into the hospital for further evaluation. He is a long-term alcohol user. The patient overnight got transferred to the intensive care unit. The patient required a total of 6 mg of Ativan for symptoms of delirium tremens. He was febrile with a temperature of 1.4. He had a low urine output. He was and rhabdomyolysis and the CPK was 4641 and currently is up to the consultants on that I 19. The liver function tests are also abnormal. SGOT is at 502 and SGPT is 155 and a bilirubin is normal. Alkaline phosphatase is nonelevated. Lipase is 9675 and currently down to 8845. Amylase is also elevated yet is declining. LEVEL IS AT 0.7. CREATININE 0.7 WITH A BMI OF 27. LACTIC ACID LEVEL WAS 1.1 AT TIME OF ADMISSION. MAGNESIUM IS AT 2.3. CALCIUM IS 9.9. REST OF THE ELECTROLYTES WERE NORMAL.Overnight, the patient was given IV fluids. The patient is currently on D5 half-normal at the rate of 150 mL an hour. He is also taking thiamine. He has received a total of 4 L of IV fluids and he started making better urine output. No abdominal distention. No abdominal pain. He is quite restless in bed. He still con fused. He is changed to the bed and there is an officer in the room. Ultrasound the gallbladder was ordered. Chest x-ray is negative. He is relatively bradycardic which is unexpected for delirium tremens. We'll check thyroid function tests. His last alcohol drink was on 11/28/2019. He did not have any further episodes of seizures since he came to the ICU. Patient was reevaluated today on 12/01/19, remains in the ICU, on seizure precautions. No seizure activity overnight. However the patient became extremely agitated last night, and he was placed on Precedex remains on the CIWA protocol, and he seems quite calm this morning. Patient is not in any form of distress, prefer to be left alone, he is on room air, and in no distress. Considering his labs, I increased his IV fluid to 250 mL per hour, and his CPK seems to be going up, however his lipase and amylase are trending down. Patient denies any shortness of breath, no cough, no wheezing, no nausea, no vomiting, and no abdominal pain. CPK today is over 7600. Amylase is 426 lipase is 5571. Transaminases are a bit elevated. Reevaluated today on 12/02/19, remains in the ICU, he is presently on room air, patient is doing great. He is awake, calm, no symptoms of seizures and no symptoms of alcohol withdrawal. However the patient remains on Precedex which I will discontinue. His IV fluids remains at 1 50 mL per hour because of his rhabdomyolysis, and his CPK today is down to 5232. Lipase is also down to 3682. Renal profile remains normal. Patient is doing actually better than expected. WBC count is 3.8 hemoglobin is 11.4. Patient denies any abdominal pain, denies any shortness of breath cough or wheezing. No seizures since admission. His diet is being advanced today. My plan is to transfer the patient out of the ICU if he doesn't show significant withdrawal symptoms. Patient was reevaluated today on 12/03/19, patient is doing better, did not require much sedation overnight, no seizure activities, remains hemodynamically stable, remains on IV fluid at 1 50 mL per hour. O2 saturations 100% on room air. Overall the patient is doing great, and I plan to transfer the patient out of the ICU to regular medical floor. However his CPK remains over 3000s, improving but not back to normal yet. Hence we'll need to continue IV fluids at that rate. Renal profile is normal. Objective - Vital Signs Vital signs: Vital Signs Temp 98.4 F 12/03/19 04:00 Pulse 125 H 12/03/19 07:00 Resp 13 12/03/19 07:00 BP 123/93 12/03/19 07:00 Pulse Ox 100 12/03/19 07:00 Intake & Output 12/02/19 12/03/19 12/03/19 18:59 06:59 18:59 Intake Total 1900 2200 150 Output Total 2600 1185 60 Balance -700 1015 90 Weight 54.1 kg 54.1 kg Intake: IV 1900 1800 150 Dextrose 5%-0.9% NaCl 1, 1800 150 000 ml @ 150 mls/hr IV . Q6H40M [facility] Rx#:[id number] Dextrose 5%-0.9% NaCl 1, 1800 000 ml @ 250 mls/hr IV . Q4H [facility] Rx#:[id number] Magnesium Sulfate-D5w Pmx 100 1 gm In Dextrose/Water 1 100ml.bag @ 100 mls/hr IVPB Q1H [facility] Rx#: [id number] Oral 400 Output: Urine 2600 1185 60 Other: Voiding Method Indwelling Catheter Indwelling Catheter Indwelling Catheter - Exam . Gen.: Revealed a 39-year-old white male in no distress, on room air Head exam atraumatic, normocephalic. EENT: supple and without jugular venous distension, thyromegaly, or carotid bruits. Carotids were easily palpable bilaterally. EOMI, no icterus. Dry mucous membranes. Lungs symmetrical chest expansion, clear throughout no crackles or rhonchi or wheezes. Cardiac: Normal S1 and S2, no S3 gallop, no murmur. Abdominal : Soft nontender no megaly no rebound no guarding. extremities : No clubbing edema or cyanosis, good pulses bilaterally. Skin: Good skin turgor, no rashes. Neurologically, awake, alert oriented 3. No gross focal deficits. Psychiatric: Depressed mood, blunt affect, normal mental status. Lymphatics: No lymphadenopathy - Labs CBC & Chem 7: 12/03/19 03:53 12/03/19 03:53 Labs: Abnormal Lab Results - Last 24 Hours (Table) 12/02/19 12/02/19 12/03/19 Range/Units 12:18 17:15 00:03 RBC (4.30-5.90) m/uL Hgb (13.0-17.5) gm/dL Hct (39.0-53.0) % MCV (80.0-100.0) fL Plt Count (150-450) k/uL Sodium (137-145) mmol/L Potassium (3.5-5.1) mmol/L Chloride (98-107) mmol/L Carbon Dioxide (22-30) mmol/L Creatinine (0.66-1.25) mg/dL POC Glucose (mg/dL) 111 H 111 H 136 H (75-99) mg/dL AST (17-59) U/L ALT (4-49) U/L Creatine Kinase (55-170) U/L Albumin (3.5-5.0) g/dL Lipase (23-300) U/L 12/03/19 12/03/19 12/03/19 Range/Units 03:53 03:53 05:55 RBC 3.58 L (4.30-5.90) m/uL Hgb 11.7 L (13.0-17.5) gm/dL Hct 35.9 L (39.0-53.0) % MCV 100.2 H (80.0-100.0) fL Plt Count 47 L D (150-450) k/uL Sodium 136 L (137-145) mmol/L Potassium 3.3 L (3.5-5.1) mmol/L Chloride 108 H (98-107) mmol/L Carbon Dioxide 20 L (22-30) mmol/L Creatinine 0.51 L (0.66-1.25) mg/dL POC Glucose (mg/dL) 133 H (75-99) mg/dL AST 368 H (17-59) U/L ALT 228 H (4-49) U/L Creatine Kinase 3161 H* (55-170) U/L Albumin 3.4 L (3.5-5.0) g/dL Lipase 3903 H (23-300) U/L 12/03/19 Range/Units 11:50 RBC (4.30-5.90) m/uL Hgb (13.0-17.5) gm/dL Hct (39.0-53.0) % MCV (80.0-100.0) fL Plt Count (150-450) k/uL Sodium (137-145) mmol/L Potassium (3.5-5.1) mmol/L Chloride (98-107) mmol/L Carbon Dioxide (22-30) mmol/L Creatinine (0.66-1.25) mg/dL POC Glucose (mg/dL) 100 H (75-99) mg/dL AST (17-59) U/L ALT (4-49) U/L Creatine Kinase (55-170) U/L Albumin (3.5-5.0) g/dL Lipase (23-300) U/L Microbiology - Last 24 Hours (Table) 11/29/19 15:40 Blood Culture - Preliminary Blood No Growth after 72 hours Assessment and Plan Assessment: Impression: Alcohol withdrawal seizure Acute rhabdomyolysis secondary to above. CPK is improving but not back to baseline. Chronic alcoholism. Acute alcoholic pancreatitis and hepatitis. Possible underlying COPD. Recommendation: Continue IV fluid at 150 mL per hour. Continue CIWA protocol. Continue to monitor renal profile and CPK. Continue seizure precautions. Continue IV Protonix. Continue DVT prophylaxis. Transfer to a regular medical floor, repeat CPK in a.m. Time with Patient: Less than 30
--- NOTE | 2019-12-03 15:21 | P.PN ---
Subjective Progress Note Date: 12/03/19 Principal diagnosis: This is a 39-year-old male who was recently admitted with a witnessed seizure most likely alcohol induced while incarcerated and is being closely monitored. Concurrently remains in the ICU and is maintained on CIVA protocol. Patient also being monitored for delirium tremens along with acute pancreatitis. Patient's creatinine kinase slowly trending down and is currently 5232. Lipase still elevated although trending down at 3682. Potassium slightly low at 3.3 and will be replaced. Magnesium is 1.4 and will be replaced as well. Current kidney functions within normal limits and creatinine is 0.41. Will continue with IV hydration and monitor labs closely. Will continue to encourage increase activity as tolerated and monitor for any signs of withdrawal. Diet has been advanced. Per nursing staff patient continues to be confused and needs redire ction. Will continue to monitor closely. Review of systems: Constitutional: Reports some fatigue, no reports of fever or chills Cardiovascular: No reports of chest pain or palpitations Respiratory: No reports of shortness of breath or cough GI: No reports of nausea, vomiting, or diarrhea : No reports of dysuria or retention 12/03/2019 Patient is seen and evaluated in follow-up currently remains in the ICU awaiting transfer out of the ICU once a bed becomes available. Patient is currently maintained on the [facility] protocol and has a mounted police at the bedside as he is currently incarcerated. Patient's creatinine kinase today is 3161 and lipase has increased to 3902. Potassium today is 3.3 and being replaced. Liver functions continue to be elevated as well and magnesium is 1.6 today. Will repeat a.m. labs. Will continue to monitor closely. PT/OT consulted to evaluate the patient as he continues to have weakness. Review of systems: Constitutional: Reports fatigue with no reports of fevers or chills Cardiovascular: No reports of chest pain or palpitations Respiratory: Reports intermittent shortness of breath but states has an inhaler, no reports of cough GI: No reports of nausea, vomiting, or diarrhea : No reports of dysuria or retention Neurovascular: Reports some weakness, no reports of numbness Active Medications Acetaminophen (Tylenol Suppository) 650 mg RECTAL Q4HR PRN PRN Reason: Fever And/ Or Mild Pain Acetaminophen (Tylenol Tab) 500 mg PO Q6HR PRN PRN Reason: Fever and/ or Pain Albuterol Sulfate (Ventolin Nebulized) 2.5 mg INHALATION RT-TID PRN PRN Reason: Shortness Of Breath Or Wheezing Calcium Carbonate/Glycine (Tums) 1,000 mg PO TID PRN PRN Reason: Heartburn Last Admin: 12/03/19 00:00 Dose: 1,000 mg Documented by: Folic Acid (Folic Acid) 1 mg PO DAILY [facility] Dextrose/Sodium Chloride (Dextrose 5%-Ns Iv Soln) 1,000 mls @ 150 mls/hr IV .Q6H40M [facility] Last Admin: 12/03/19 12:12 Dose: 150 mls/hr Documented by: Ibuprofen (Advil) 200 mg PO Q6HR PRN PRN Reason: Pain Last Admin: 12/03/19 00:00 Dose: 200 mg Documented by: Lorazepam (Ativan) 1 mg IV Q2HR PRN PRN Reason: CIWA 8 or 9 Last Admin: 12/03/19 08:42 Dose: 1 mg Documented by: Lorazepam (Ativan) 1 mg IV Q1HR PRN PRN Reason: CIWA 10 to 15 Last Admin: 12/03/19 00:01 Dose: 1 mg Documented by: Miscellaneous Information (Potassium Per Protocol) 1 each MISCELLANE DAILY PRN; Protocol PRN Reason: Per Protocol Miscellaneous Information (Magnesium Per Protocol) 1 each MISCELLANE DAILY PRN; Protocol PRN Reason: Per Protocol Multivitamins (Theragran) 1 each PO DAILY [facility] Naloxone HCl (Narcan) 0.2 mg IV Q2M PRN PRN Reason: Opioid Reversal Suboxone ( Buprenorphine And Naloxone) Sublingual 8mg/2mg Film 1 each PO B ID@[id number],1800 [facility] Last Admin: 12/03/19 06:35 Dose: 1 each Documented by: Pantoprazole Sodium (Protonix) 40 mg PO AC-BRKFST [facility] Last Admin: 12/03/19 08:37 Dose: 40 mg Documented by: Thiamine HCl (Vitamin B-1) 100 mg PO BID-W/MEALS [facility] Objective - Vital Signs Vital signs: Vital Signs Temp 98.4 F 12/03/19 04:00 Pulse 125 H 12/03/19 07:00 Resp 13 12/03/19 07:00 BP 123/93 12/03/19 07:00 Pulse Ox 100 12/03/19 07:00 Intake & Output 12/02/19 12/03/19 12/03/19 18:59 06:59 18:59 Intake Total 1900 2200 150 Output Total 2600 1185 60 Balance -700 1015 90 Weight 54.1 kg 54.1 kg Intake: IV 1900 1800 150 Dextrose 5%-0.9% NaCl 1, 1800 150 000 ml @ 150 mls/hr IV . Q6H40M [facility] Rx#:[id number] Dextrose 5%-0.9% NaCl 1, 1800 000 ml @ 250 mls/hr IV . Q4H [facility] Rx#:[id number] Magnesium Sulfate-D5w Pmx 100 1 gm In Dextrose/Water 1 100ml.bag @ 100 mls/hr IVPB Q1H [facility] Rx#: [id number] Oral 400 Output: Urine 2600 1185 60 Other: Voiding Method Indwelling Catheter Indwelling Catheter Indwelling Catheter - Exam Gen: This is a 39-year-old male lying in bed, Asleep but easily arousable, alert and oriented 3, confused at times. Temp is 98.4F, pulse is 75, respirations are 14, blood pressure is 123/93, oxygen saturation is 100% on room air. HEENT: Head is atraumatic, normocephalic. Pupils equal, round. Sclerae is anicteric. NECK: Supple. No JVD. No lymphadenopathy. No thyromegaly. LUNGS: Diminished breath sounds bilaterally with no wheezes or rhonchi. No intercostal retractions. HEART: Regular rate and rhythm. No murmur. ABDOMEN: Soft. Bowel sounds are present. No masses. No tenderness. EXTREMITIES: No pedal edema. No calf tenderness. NEUROLOGICAL: Patient is awake, alert and oriented x3. Diffusely weak - Labs CBC & Chem 7: 12/03/19 03:53 12/03/19 03:53 Labs: Abnormal Lab Results - Last 24 Hours (Table) 12/02/19 12/03/19 12/03/19 Range/Units 17:15 00:03 03:53 RBC (4.30-5.90) m/uL Hgb (13.0-17.5) gm/dL Hct (39.0-53.0) % MCV (80.0-100.0) fL Plt Count (150-450) k/uL Sodium 136 L (137-145) mmol/L Potassium 3.3 L (3.5-5.1) mmol/L Chloride 108 H (98-107) mmol/L Carbon Dioxide 20 L (22-30) mmol/L Creatinine 0.51 L (0.66-1.25) mg/dL POC Glucose (mg/dL) 111 H 136 H (75-99) mg/dL AST 368 H (17-59) U/L ALT 228 H (4-49) U/L Creatine Kinase 3161 H* (55-170) U/L Albumin 3.4 L (3.5-5.0) g/dL Lipase 3903 H (23-300) U/L 12/03/19 12/03/19 12/03/19 Range/Units 03:53 05:55 11:50 RBC 3.58 L (4.30-5.90) m/uL Hgb 11.7 L (13.0-17.5) gm/dL Hct 35.9 L (39.0-53.0) % MCV 100.2 H (80.0-100.0) fL Plt Count 47 L D (150-450) k/uL Sodium (137-145) mmol/L Potassium (3.5-5.1) mmol/L Chloride (98-107) mmol/L Carbon Dioxide (22-30) mmol/L Creatinine (0.66-1.25) mg/dL POC Glucose (mg/dL) 133 H 100 H (75-99) mg/dL AST (17-59) U/L ALT (4-49) U/L Creatine Kinase (55-170) U/L Albumin (3.5-5.0) g/dL Lipase (23-300) U/L Microbiology - Last 24 Hours (Table) 11/29/19 15:40 Blood Culture - Preliminary Blood No Growth after 72 hours Assessment and Plan Assessment: Acute alcohol withdrawal seizures Acute delirium tremens Hypokalemia Hypomagnesemia Acute rhabdomyolysis Severe alcohol abuse Acute pancreatitis alcohol-related Acute alcoholic hepatitis with elevated liver enzymes Thrombocytopenia likely chronic secondary to EtOH abuse GERD COPD not in exacerbation DVT prophylaxis Recommendations and discussion: Recommend continue with current medications, management, and symptomatic treatment. Continue CIWA protocol and monitor for withdrawals. will repeat a.m. labs. Continue to monitor for seizure and maintain seizure and fall precautions. Patient remains in the ICU and Awaiting transfer once a bed becomes available. PT/OT to evaluate the patient as he continues to have weakness. Further recommendations to follow. Prognosis is guarded.
[2019-12-03 17:21] LABS: Glucose,Whole Blood 116 mg/dL (75-99)
[2019-12-03] MEDS: THIAMINE 100 MG TAB PO SCH ×2 (17:55→17:56)
[2019-12-03 20:00] LABS: Glucose,Whole Blood 112 mg/dL (75-99)
[2019-12-04] MEDS: DEXTROSE 5%-0.9% NACL 1,000 ML IV SCH ×4 (05:10→20:33)
[2019-12-04] MEDS: LORazepam 2 MG/ML INJ IV PRN (05:10)
[2019-12-04 07:12] LABS: Glucose,Whole Blood 103 mg/dL (75-99)
[2019-12-04] MEDS: PANTOPRAZOLE 40 MG TABLET PO SCH (07:56)
[2019-12-04] MEDS: THIAMINE 100 MG TAB PO SCH ×2 (07:57→17:27)
[2019-12-04 08:20] LABS: ALT 266 U/L (4-49); AST 292 U/L (17-59); African American GFR (CKD) >90 (>60 ml/min/1.73 sqM); Anion Gap 7 mmol/L; Blood Urea Nitrogen 11 mg/dL (9-20); Calcium 8.7 mg/dL (8.4-10.2); Carbon Dioxide 25 mmol/L (22-30); Chloride 103 mmol/L (98-107); Glucose 98 mg/dL (74-99); Non-African American GFR(CKD) >90 (>60 ml/min/1.73 sqM); Potassium 4.2 mmol/L (3.5-5.1); Sodium 135 mmol/L (137-145)
[2019-12-04 08:33] LABS: Creatine Kinase 1290 U/L (55-170)
[2019-12-04 08:44] LABS: Basophils % (A) 1 %; Eosinophils # (A) 0.3 k/uL (0-0.7); Eosinophils % (A) 6 %; HCT 31.2 % (39.0-53.0); HGB 10.4 gm/dL (13.0-17.5); Lymphocytes # (A) 0.9 k/uL (1.0-4.8); Lymphocytes % (A) 18 %; MCHC 33.4 g/dL (31.0-37.0); MCV 98.8 fL (80.0-100.0); Mean Platelet Volume 10.1; Monocytes # (A) 0.6 k/uL (0-1.0); Monocytes % (A) 12 %; Neutrophils # (A) 3.1 k/uL (1.3-7.7); Neutrophils % (A) 61 %; RBC 3.15 m/uL (4.30-5.90); RDW 14.7 % (11.5-15.5)
[2019-12-04 09:00] LABS: Platelet Count 84 k/uL (150-450)
[2019-12-04] MEDS: FOLIC ACID 1 MG TAB PO SCH (10:05)
[2019-12-04] MEDS: MULTIVITAMINS, THERA 1 EACH TAB PO SCH (10:05)
[2019-12-04 11:47] LABS: Glucose,Whole Blood 111 mg/dL (75-99)
[2019-12-04 17:16] LABS: Glucose,Whole Blood 135 mg/dL (75-99)
[2019-12-04 19:46] LABS: Glucose,Whole Blood 123 mg/dL (75-99)
[2019-12-05] MEDS: DEXTROSE 5%-0.9% NACL 1,000 ML IV SCH ×4 (03:09→21:54)
[2019-12-05] MEDS: IBUPROFEN 200 MG TAB PO PRN ×2 (03:25→10:02)
[2019-12-05 06:26] LABS: ALT 226 U/L (4-49); AST 218 U/L (17-59); African American GFR (CKD) >90 (>60 ml/min/1.73 sqM); Albumin 3.3 g/dL (3.5-5.0); Alkaline Phosphatase 84 U/L (38-126); Anion Gap 7 mmol/L; Blood Urea Nitrogen 10 mg/dL (9-20); Carbon Dioxide 24 mmol/L (22-30); Chloride 105 mmol/L (98-107); Creatine Kinase 919 U/L (55-170); Glucose 110 mg/dL (74-99); Non-African American GFR(CKD) >90 (>60 ml/min/1.73 sqM); Potassium 3.8 mmol/L (3.5-5.1); Sodium 136 mmol/L (137-145); Total Bilirubin 0.5 mg/dL (0.2-1.3); Total Protein 6.1 g/dL (6.3-8.2)
[2019-12-05 06:50] LABS: HCT 28.8 % (39.0-53.0); HGB 9.8 gm/dL (13.0-17.5); MCH 33.3 pg (25.0-35.0); MCV 97.9 fL (80.0-100.0); Mean Platelet Volume 9.9; Platelet Count 120 k/uL (150-450); RBC 2.94 m/uL (4.30-5.90); RDW 14.5 % (11.5-15.5); WBC 3.6 k/uL (3.8-10.6)
[2019-12-05 07:27] LABS: Glucose,Whole Blood 104 mg/dL (75-99)
--- NOTE | 2019-12-05 08:40 | P.PN ---
Subjective Progress Note Date: 12/04/19 Principal diagnosis: This is a 39-year-old male who was recently admitted with a witnessed seizure most likely alcohol induced while incarcerated and is being closely monitored. Concurrently remains in the ICU and is maintained on CIWA protocol. Patient also being monitored for delirium tremens along with acute pancreatitis. Patient's creatinine kinase slowly trending down and is currently 5232. Lipase still elevated although trending down at 3682. Potassium slightly low at 3.3 and will be replaced. Magnesium is 1.4 and will be replaced as well. Current kidney functions within normal limits and creatinine is 0.41. Will continue with IV hydration and monitor labs closely. Will continue to encourage increase activity as tolerated and monitor for any signs of withdrawal. Diet has been advanced. Per nursing staff patient continues to be confused and needs redire ction. Will continue to monitor closely. Review of systems: Constitutional: Reports some fatigue, no reports of fever or chills Cardiovascular: No reports of chest pain or palpitations Respiratory: No reports of shortness of breath or cough GI: No reports of nausea, vomiting, or diarrhea : No reports of dysuria or retention 12/03/2019 Patient is seen and evaluated in follow-up currently remains in the ICU awaiting transfer out of the ICU once a bed becomes available. Patient is currently maintained on the [facility]INV protocol and has a air support control officer at the bedside as he is currently incarcerated. Patient's creatinine kinase today is 3161 and lipase has increased to 3902. Potassium today is 3.3 and being replaced. Liver functions continue to be elevated as well and magnesium is 1.6 today. Will repeat a.m. labs. Will continue to monitor closely. PT/OT consulted to evaluate the patient as he continues to have weakness. Review of systems: Constitutional: Reports fatigue with no reports of fevers or chills Cardiovascular: No reports of chest pain or palpitations Respiratory: Reports intermittent shortness of breath but states has an inhaler, no reports of cough GI: No reports of nausea, vomiting, or diarrhea : No reports of dysuria or retention Neurovascular: Reports some weakness, no reports of numbness 12/04/2019 Patient is seen in follow-up today and has been moved from the ICU and to a MedSur unit and is being closely monitored. Patient continues to be chaperoned by air support control officer as he is currently incarcerated. Repeat labs this morning sh ow creatinine kinase of 1290 and lipase of 3946. Patient continues to have weakness of his bilateral lower extremities and tightness of the muscles he states. Patient was seen and evaluated by physical therapy recommending subacute rehab as patient continues to require assistance with balance and standing and some fatigue with ambulation. Currently patient denies any chest pain, shortness of breath, or palpitations. Patient is afebrile. No reports of nausea or vomiting patient is tolerating diet. Patient is maintained on CIWA protocol although has not required any Ativan today. Will continue to monitor closely. Objective - Vital Signs Vital signs: Vital Signs Temp 98.7 F 12/04/19 13:21 Pulse 115 H 12/04/19 13:21 Resp 20 12/04/19 13:21 BP 123/84 12/04/19 13:21 Pulse Ox 99 12/04/19 13:21 Intake & Output 12/03/19 12/04/19 12/04/19 18:59 06:59 18:59 Intake Total 9203 210 0575 Output Total 60 700 1550 Balance 1290 140 -350 Weight 54.1 kg Intake: IV 1350 1200 Dextrose 5%-0.9% NaCl 1, 1350 1200 000 ml @ 150 mls/hr IV . Q6H40M [facility] Rx#:[id number] Oral 840 Output: Urine 60 700 1550 Other: Voiding Method Indwelling Catheter Urinal Urinal # Voids 3 0 # Bowel Movements 0 - Exam Gen: This is a 39-year-old male sitting up in bed, awake, alert and oriented 3. Temp is 98.4F, pulse is 84, respirations are 20, blood pressure is 113/82, oxygen saturation is 94 % on room air. HEENT: Head is atraumatic, normocephalic. Pupils equal, round. Sclerae is anicteric. NECK: Supple. No JVD. No lymphadenopathy. No thyromegaly. LUNGS: Diminished breath sounds bilaterally with no wheezes or rhonchi. No intercostal retractions. HEART: Regular rate and rhythm. No murmur. ABDOMEN: Soft. Bowel sounds are present. No masses. No tenderness. EXTREMITIES: No pedal edema. No calf tenderness. NEUROLOGICAL: Patient is awake, alert and oriented x3. Diffusely weak - Labs CBC & Chem 7: 12/05/19 05:39 12/05/19 05:39 Labs: Abnormal Lab Results - Last 24 Hours (Table) 12/03/19 12/03/19 12/04/19 Range/Units 17:20 19:59 06:44 RBC (4.30-5.90) m/uL Hgb (13.0-17.5) gm/dL Hct (39.0-53.0) % Plt Count (150-450) k/uL Lymphocytes # (1.0-4.8) k/uL Sodium 135 L (137-145) mmol/L Creatinine 0.47 L (0.66-1.25) mg/dL POC Glucose (mg/dL) 116 H 112 H (75-99) mg/dL AST 292 H (17-59) U/L ALT 266 H (4-49) U/L Creatine Kinase 1290 H* (55-170) U/L Lipase 3946 H (23-300) U/L 12/04/19 12/04/19 12/04/19 Range/Units 06:44 07:09 11:21 RBC 3.15 L (4.30-5.90) m/uL Hgb 10.4 L (13.0-17.5) gm/dL Hct 31.2 L (39.0-53.0) % Plt Count 84 L D (150-450) k/uL Lymphocytes # 0.9 L (1.0-4.8) k/uL Sodium (137-145) mmol/L Creatinine (0.66-1.25) mg/dL POC Glucose (mg/dL) 103 H 111 H (75-99) mg/dL AST (17-59) U/L ALT (4-49) U/L Creatine Kinase (55-170) U/L Lipase (23-300) U/L Microbiology - Last 24 Hours (Table) 11/29/19 15:40 Blood Culture - Preliminary Blood No Growth after 96 hours Assessment and Plan Assessment: Acute alcohol withdrawal seizures Acute delirium tremens Hypokalemia Hypomagnesemia Acute rhabdomyolysis Severe alcohol abuse Acute pancreatitis alcohol-related Acute alcoholic hepatitis with elevated liver enzymes Thrombocytopenia likely chronic secondary to EtOH abuse GERD COPD not in exacerbation DVT prophylaxis Recommendations and discussion: Recommend continue with current medications, management, and symptomatic treatment. Continue CIWA protocol and monitor for withdrawals. will repeat a.m. labs. Continue to monitor for seizure and maintain seizure and fall precautions. PT/OT evaluated the patient recommending subacute rehab for continued PT/OT therapy for strengthening mobility. Instructed the patient to increase activity as tolerated. Further recommendations to follow. Prognosis is guarded. Possible discharge in 24-48 hours.
[2019-12-05] MEDS: FOLIC ACID 1 MG TAB PO SCH (08:50)
[2019-12-05] MEDS: MULTIVITAMINS, THERA 1 EACH TAB PO SCH (08:50)
[2019-12-05] MEDS ORDERED: THIAMINE 100 MG TAB PO SCH (09:00)
[2019-12-05] MEDS: THIAMINE 100 MG TAB PO SCH ×2 (09:21→17:20)
[2019-12-05] MEDS: PANTOPRAZOLE 40 MG TABLET PO SCH (09:22)
[2019-12-05] MEDS: LORazepam 2 MG/ML INJ IV PRN ×2 (11:16→17:32)
[2019-12-05 11:35] LABS: Eosinophils # (M) 0.14 k/uL (0-0.7); Lymphocytes # (M) 0.65 k/uL (1.0-4.8); Monocytes # (M) 1.01 k/uL (0-1.0); Neutrophils % (M) 50 %; Nucleated Red Blood Cells 0 /100 WBC (0-0); Total Cells Counted 100
[2019-12-05 11:36] LABS: Anisocytosis (M) Present; Poikilocytosis (M) Present
[2019-12-05] MEDS ORDERED: IBUPROFEN 200 MG TAB PO STA (11:48)
[2019-12-05] MEDS ORDERED: IBUPROFEN 200 MG TAB PO PRN (11:50)
[2019-12-05] MEDS: NYSTATIN 100,000 UNIT/ML SUSP 500,000 UNIT/5 ML CUP PO SCH ×4 (12:10→21:52)
[2019-12-05 12:12] LABS: Glucose,Whole Blood 111 mg/dL (75-99)
--- NOTE | 2019-12-05 16:19 | P.PN ---
Subjective Progress Note Date: 12/05/19 Principal diagnosis: This is a 39-year-old male who was recently admitted with a witnessed seizure most likely alcohol induced while incarcerated and is being closely monitored. Concurrently remains in the ICU and is maintained on CIWA protocol. Patient also being monitored for delirium tremens along with acute pancreatitis. Patient's creatinine kinase slowly trending down and is currently 5232. Lipase still elevated although trending down at 3682. Potassium slightly low at 3.3 and will be replaced. Magnesium is 1.4 and will be replaced as well. Current kidney functions within normal limits and creatinine is 0.41. Will continue with IV hydration and monitor labs closely. Will continue to encourage increase activity as tolerated and monitor for any signs of withdrawal. Diet has been advanced. Per nursing staff patient continues to be confused and needs redire ction. Will continue to monitor closely. Review of systems: Constitutional: Reports some fatigue, no reports of fever or chills Cardiovascular: No reports of chest pain or palpitations Respiratory: No reports of shortness of breath or cough GI: No reports of nausea, vomiting, or diarrhea : No reports of dysuria or retention 12/03/2019 Patient is seen and evaluated in follow-up currently remains in the ICU awaiting transfer out of the ICU once a bed becomes available. Patient is currently maintained on the CIWV protocol and has a community reinvestment act officer at the bedside as he is currently incarcerated. Patient's creatinine kinase today is 3161 and lipase has increased to 3902. Potassium today is 3.3 and being replaced. Liver functions continue to be elevated as well and magnesium is 1.6 today. Will repeat a.m. labs. Will continue to monitor closely. PT/OT consulted to evaluate the patient as he continues to have weakness. Review of systems: Constitutional: Reports fatigue with no reports of fevers or chills Cardiovascular: No reports of chest pain or palpitations Respiratory: Reports intermittent shortness of breath but states has an inhaler, no reports of cough GI: No reports of nausea, vomiting, or diarrhea : No reports of dysuria or retention Neurovascular: Reports some weakness, no reports of numbness 12/04/2019 Patient is seen in follow-up today and has been moved from the ICU and to a MedSur unit and is being closely monitored. Patient continues to be chaperoned by community reinvestment act officer as he is currently incarcerated. Repeat labs this morning sh ow creatinine kinase of 1290 and lipase of 3946. Patient continues to have weakness of his bilateral lower extremities and tightness of the muscles he states. Patient was seen and evaluated by physical therapy recommending subacute rehab as patient continues to require assistance with balance and standing and some fatigue with ambulation. Currently patient denies any chest pain, shortness of breath, or palpitations. Patient is afebrile. No reports of nausea or vomiting patient is tolerating diet. Patient is maintained on CIWA protocol although has not required any Ativan today. Will continue to monitor closely. 12/05/2019 Patient is seen and evaluated in follow-up today with continued weakness although was able to work with physical therapy. Per the community reinvestment act officer at the bedside patient was able to walk to the bathroom with only standby assist with a walker and tolerated. Will continue to have PT/OT follow this patient is currently incarcerated and will be returning to nursing home upon discharge and they have no forms of physical therapy in nursing home. Patient's creatine kinase continues to trend down and is 919, lipase also trending down at 3199. CBC and BMP within normal limits. Patient continues to have some tongue and right side buccal tenderness and discomfort with eating. Patient states when he was having a seizure he bit his tongue and side of his cheek. Some mild excoriation is noted to the right buccal mucosa and right side of the tongue. Patient does have Motrin for discomfort will add nystatin. No reports of chest pain, shortness of breath, or palpitations. Remains afebrile. Will continue to monitor closely. Objective - Vital Signs Vital signs: Vital Signs Temp 99.6 F 12/05/19 13:51 Pulse 85 12/05/19 14:42 Resp 18 12/05/19 14:42 BP 120/78 12/05/19 07:54 Pulse Ox 97 12/05/19 13:51 Intake & Output 12/04/19 12/05/19 12/05/19 18:59 06:59 18:59 Intake Total 4189 778 3811 Output Total 1550 2400 1600 Balance -350 -1810 1540 Intake: IV 1200 Dextrose 5%-0.9% NaCl 1, 1200 000 ml @ 150 mls/hr IV . Q6H40M [facility] Rx#:[id number] Intake, IV Titration 1200 Amount Dextrose 5%-0.9% NaCl 1, 1200 000 ml @ 150 mls/hr IV . Q6H40M [facility] Rx#:[id number] Oral 590 1940 Output: Urine 1550 2400 1600 Other: Voiding Method Urinal Urinal # Voids 0 1 # Bowel Movements 0 0 - Exam Gen: This is a 39-year-old male sitting up in bed, awake, alert and oriented 3. Temp is 98.7F, pulse is 71, respirations are 18, blood pressure is 120/70, o xygen saturation is 97 % on room air. HEENT: Head is atraumatic, normocephalic. Pupils equal, round. Sclerae is anicteric. NECK: Supple. No JVD. No lymphadenopathy. No thyromegaly. LUNGS: Diminished breath sounds bilaterally with no wheezes or rhonchi. No intercostal retractions. HEART: Regular rate and rhythm. No murmur. ABDOMEN: Soft. Bowel sounds are present. No masses. No tenderness. EXTREMITIES: No pedal edema. No calf tenderness. NEUROLOGICAL: Patient is awake, alert and oriented x3. Diffusely weak - Labs CBC & Chem 7: 12/05/19 05:39 12/05/19 05:39 Labs: Abnormal Lab Results - Last 24 Hours (Table) 12/04/19 12/04/19 12/04/19 Range/Units 16:33 17:12 19:45 WBC (3.8-10.6) k/uL RBC (4.30-5.90) m/uL Hgb (13.0-17.5) gm/dL Hct (39.0-53.0) % Plt Count (150-450) k/uL Lymphocytes # (Manual) (1.0-4.8) k/uL Monocytes # (Manual) (0-1.0) k/uL Sodium (137-145) mmol/L Creatinine (0.66-1.25) mg/dL Glucose (74-99) mg/dL POC Glucose (mg/dL) 135 H 123 H (75-99) mg/dL AST (17-59) U/L ALT (4-49) U/L Creatine Kinase (55-170) U/L Total Protein (6.3-8.2) g/dL Albumin (3.5-5.0) g/dL Lipase 3665 H (23-300) U/L 12/05/19 12/05/19 12/05/19 Range/Units 05:39 05:39 05:39 WBC 3.6 L (3.8-10.6) k/uL RBC 2.94 L (4.30-5.90) m/uL Hgb 9.8 L (13.0-17.5) gm/dL Hct 28.8 L (39.0-53.0) % Plt Count 120 L (150-450) k/uL Lymphocytes # (Manual) 0.65 L (1.0-4.8) k/uL Monocytes # (Manual) 1.01 H (0-1.0) k/uL Sodium 136 L (137-145) mmol/L Creatinine 0.56 L (0.66-1.25) mg/dL Glucose 110 H (74-99) mg/dL POC Glucose (mg/dL) (75-99) mg/dL AST 218 H (17-59) U/L ALT 226 H (4-49) U/L Creatine Kinase 919 H (55-170) U/L Total Protein 6.1 L (6.3-8.2) g/dL Albumin 3.3 L (3.5-5.0) g/dL Lipase 3199 H (23-300) U/L 12/05/19 12/05/19 Range/Units 07:24 11:52 WBC (3.8-10.6) k/uL RBC (4.30-5.90) m/uL Hgb (13.0-17.5) gm/dL Hct (39.0-53.0) % Plt Count (150-450) k/uL Lymphocytes # (Manual) (1.0-4.8) k/uL Monocytes # (Manual) (0-1.0) k/uL Sodium (137-145) mmol/L Creatinine (0.66-1.25) mg/dL Glucose (74-99) mg/dL POC Glucose (mg/dL) 104 H 111 H (75-99) mg/dL AST (17-59) U/L ALT (4-49) U/L Creatine Kinase (55-170) U/L Total Protein (6.3-8.2) g/dL Albumin (3.5-5.0) g/dL Lipase (23-300) U/L Microbiology - Last 24 Hours (Table) 11/29/19 15:40 Blood Culture - Preliminary Blood No Growth after 120 hours Assessment and Plan Assessment: Acute alcohol withdrawal seizures Acute delirium tremens Hypokalemia Hypomagnesemia Acute rhabdomyolysis Severe alcohol abuse Acute pancreatitis alcohol-related Acute alcoholic hepatitis with elevated liver enzymes Thrombocytopenia likely chronic secondary to EtOH abuse GERD COPD not in exacerbation DVT prophylaxis Recommendations and discussion: Recommend continue with current medications, management, and symptomatic treatment. Continue CIWA protocol and monitor for withdrawals. will repeat a.m. labs. Continue to monitor for seizure and maintain seizure and fall precautions. PT/OT to follow. Instructed the patient to increase activity as tolerated. Further recommendations to follow. Prognosis is guarded. Possible discharge in 24-48 hours.
[2019-12-05 17:01] LABS: Glucose,Whole Blood 101 mg/dL (75-99)
[2019-12-05 21:27] LABS: Glucose,Whole Blood 147 mg/dL (75-99)
[2019-12-06] MEDS: IBUPROFEN 400 MG TAB PO PRN ×2 (01:32→09:24)
[2019-12-06] MEDS: LORazepam 2 MG/ML INJ IV PRN (01:59)
[2019-12-06] MEDS: DEXTROSE 5%-0.9% NACL 1,000 ML IV SCH ×3 (06:30→19:31)
[2019-12-06 07:21] LABS: Glucose,Whole Blood 102 mg/dL (75-99)
[2019-12-06] MEDS: FOLIC ACID 1 MG TAB PO SCH (09:11)
[2019-12-06] MEDS: THIAMINE 100 MG TAB PO SCH ×2 (09:11→17:31)
[2019-12-06] MEDS: NYSTATIN 100,000 UNIT/ML SUSP 500,000 UNIT/5 ML CUP PO SCH ×4 (09:11→21:42)
[2019-12-06] MEDS: MULTIVITAMINS, THERA 1 EACH TAB PO SCH (09:12)
[2019-12-06] MEDS: PANTOPRAZOLE 40 MG TABLET PO SCH (09:12)
[2019-12-06 11:39] LABS: Glucose,Whole Blood 110 mg/dL (75-99)
--- NOTE | 2019-12-06 11:53 | PN ---
PROGRESS NOTE DATE OF SERVICE: 12/06/2019 This 39-year-old gentleman admitted with significant weakness and DTs is being closely monitored. Patient has significant tremors also. The patient is on multiple psych medication also. No chest pain. No palpitations. No fever. PHYSICAL EXAMINATION: Alert and oriented x3. Pulse is 84, blood pressure 119/60, respirations 16, temperature 98 degrees, pulse ox 98% on room air. HEENT: Conjunctivae normal. Oral mucosa moist. NECK: No jugular venous distention. No lymph node enlargement. CARDIOVASCULAR: S1, S2, muffled. No S3, no S4, RESPIRATORY: Diminished breath sounds at the bases. No rhonchi, no crackles. ABDOMEN: Soft, nontender. LEGS: No edema, no swelling. NERVOUS SYSTEM: Diffusely weak and tremors. LAB STUDIES: WBC 3.2, hemoglobin 9.8. Other labs are noted. ASSESSMENT: 1. Acute alcohol withdrawal seizures. 2. Acute delirium tremens. 3. Hypokalemia. 4. Gait dysfunction. 5. Hypomagnesemia. 6. Acute rhabdomyolysis. 7. History of severe alcohol abuse. 8. History of acute pancreatitis, alcohol related. 9. Acute alcoholic hepatitis with elevated liver enzymes. 10.Thrombocytopenia, likely chronic, secondary to ETOH abuse. 11.Gastroesophageal reflux disease. 12.Chronic obstructive pulmonary disease, not in exacerbation. 13.DVT prophylaxis. RECOMMENDATIONS AND DISCUSSION: Recommend to continue current management and symptomatic treatment. Repeat labs. Otherwise, I would recommend a psychiatric evaluation. Guarded prognosis. Further recommendation to follow. MMTACHOL / RODRIN: [id number] /
[2019-12-06 17:04] LABS: Glucose,Whole Blood 103 mg/dL (75-99)
[2019-12-06] MEDS ORDERED: OLANZapine 5 MG TAB PO ONE (18:00)
[2019-12-06 20:24] LABS: Glucose,Whole Blood 113 mg/dL (75-99)
--- NOTE | 2019-12-06 20:53 | CONS ---
DATE OF SERVICE: 12/06/2019 CONSULTATION PURPOSE FOR CONSULTATION: Evaluate for alcohol dependence and depression. HISTORY OF PRESENTING ILLNESS: The patient is a 39-year-old male. He has long-term issues with alcohol dependence. He has been in a number of rehabilitation programs in the past. He indicated that he had an 18 month period of sobriety up until September 2018 when his mother . He said that set him off into drinking again and he has been drinking continuously since then. He notes that he drinks a half a gallon a day or more on a daily basis, he has been on a combination of Wellbutrin XL 450 mg a day, Buspar 20 mg 3 times a day and trazodone 300 mg at bedtime. Some of the immediate issues relating to his hospitalization are unclear. The patient was arrested. The only thing he indicated to me about that is he had 4000 dollars on him and was in the process of paying a fine for trespassing. He said that he was arrested and in detention then had a seizure. As a result, he says that he had essentially retrograde and anterograde amnesia and could not recall events leading up to his going into detention and immediate issues after that. He said he ultimately woke up in detention, not knowing the specifics. He was then transferred to the hospital and was admitted to the medical floor for stabilization and further evaluation. The patient indicated that he had been drinking up to the point of his going into detention and thus presumably his last use of alcohol would have been on November 27 or November 28. The patient does note that he has had a past history of seizures related to alcohol withdrawal as well. The patient reports significant anxiety and depression symptoms. He has tremors in his hands. He has GI distress. He said his sleep has been up and down. The patient indicated that he wanted to restart his medications and that he believed that Desyrel 300 mg at bedtime would help him with sleep and Buspar 20 mg 3 times a day would help with anxiety. MENTAL STATUS EXAM: The patient had fair to poor eye contact. Psychomotor activity was restless. He had notable tremors in both hands. He answered questions with brief responses. His thoughts were clear. He did not say a lot. His affect was blunted. His mood depressed. He was significantly distressed. There was no immediate evidence for thought disorder. He was oriented and alert. He was aware of his current circumstances. He voiced no immediate thoughts of harm to self or others. ASSESSMENT: This 39-year-old male is diagnosed with alcohol dependence and acute alcohol withdrawal. He now is on approximately day 8 of withdrawal. I had an extensive discussion with the patient regarding withdrawal issues. I talked to the patient that alcohol withdrawal typically will get progressively worse over the first 2 weeks with a 10 to day 14 being the worst of withdrawal. I indicated that beyond day 21 he may see some gradual improvement, though by the 6 weeks point he could anticipate being about 60% through withdrawal. I discussed that in the early phase of withdrawal at least up to the first 6 weeks, antidepressants have no benefit in helping mood disorder. I indicated that Buspar has no indication for treating acute alcohol withdrawal issues. I also discussed with the patient that Desyrel at 300 mg and Buspar at 60 mg a day would put him at increased risk for recurrent seizures. At this point, I will start the patient on Zyprexa 5 mg 3 times a day. The indication of Zyprexa is to help reduce physiologic stress response relating to acute alcohol withdrawal. I discussed that it if we can make some initial progress in containing some of the more intense withdrawal symptoms at this time, we then can look at additional options on a [id number] basis. I indicated that it is critical to keep his psychotropic medications limited and to avoid polypharmacy early on, which would increase his risk for seizures. The patient was in agreement with starting Zyprexa. I will continue to follow. BERNARD / MIR: [id number] / CARLOS
[2019-12-06] MEDS: OLANZapine 5 MG TAB PO SCH (21:42)
[2019-12-07] MEDS: DEXTROSE 5%-0.9% NACL 1,000 ML IV SCH ×4 (01:29→20:49)
[2019-12-07 05:00] VITALS: RESP 16
[2019-12-07 07:33] LABS: Glucose,Whole Blood 88 mg/dL (75-99)
[2019-12-07 08:14] LABS: HCT 31.1 % (39.0-53.0); HGB 9.9 gm/dL (13.0-17.5); Hypochromasia Slight; MCHC 31.9 g/dL (31.0-37.0); MCV 100.4 fL (80.0-100.0); Macrocytosis Slight; Mean Platelet Volume 9.4; Platelet Count 209 k/uL (150-450); RBC 3.09 m/uL (4.30-5.90); RDW 14.7 % (11.5-15.5); WBC 3.7 k/uL (3.8-10.6)
[2019-12-07 08:20] LABS: ALT 217 U/L (4-49); AST 159 U/L (17-59); African American GFR (CKD) >90 (>60 ml/min/1.73 sqM); Albumin 3.6 g/dL (3.5-5.0); Alkaline Phosphatase 71 U/L (38-126); Anion Gap 7 mmol/L; Blood Urea Nitrogen 13 mg/dL (9-20); Calcium 8.8 mg/dL (8.4-10.2); Carbon Dioxide 23 mmol/L (22-30); Chloride 113 mmol/L (98-107); Glucose 78 mg/dL (74-99); Non-African American GFR(CKD) >90 (>60 ml/min/1.73 sqM); Sodium 143 mmol/L (137-145); Total Bilirubin 0.5 mg/dL (0.2-1.3); Total Protein 6.5 g/dL (6.3-8.2)
[2019-12-07] MEDS: NYSTATIN 100,000 UNIT/ML SUSP 500,000 UNIT/5 ML CUP PO SCH ×4 (08:30→20:49)
[2019-12-07] MEDS: FOLIC ACID 1 MG TAB PO SCH (08:30)
[2019-12-07] MEDS: PANTOPRAZOLE 40 MG TABLET PO SCH (08:30)
[2019-12-07] MEDS: THIAMINE 100 MG TAB PO SCH ×2 (08:30→17:40)
[2019-12-07] MEDS: MULTIVITAMINS, THERA 1 EACH TAB PO SCH (08:30)
[2019-12-07] MEDS: OLANZapine 5 MG TAB PO SCH ×2 (08:30→20:48)
[2019-12-07] MEDS: IBUPROFEN 400 MG TAB PO PRN ×2 (08:30→16:27)
[2019-12-07 10:03] LABS: Basophils # (M) 0.04 k/uL (0-0.2); Lymphocytes # (M) 1.37 k/uL (1.0-4.8); Monocytes # (M) 0.93 k/uL (0-1.0); Neutrophils # (M) 1.37 k/uL (1.3-7.7); Neutrophils % (M) 37 %; Nucleated Red Blood Cells 0 /100 WBC (0-0); Total Cells Counted 100
--- NOTE | 2019-12-07 14:56 | P.PN ---
Subjective Progress Note Date: 12/07/19 Principal diagnosis: This is a 39-year-old male who was recently admitted with a witnessed seizure most likely alcohol induced while incarcerated and is being closely monitored. Concurrently remains in the ICU and is maintained on CIWA protocol. Patient also being monitored for delirium tremens along with acute pancreatitis. Patient's creatinine kinase slowly trending down and is currently 5232. Lipase still elevated although trending down at 3682. Potassium slightly low at 3.3 and will be replaced. Magnesium is 1.4 and will be replaced as well. Current kidney functions within normal limits and creatinine is 0.41. Will continue with IV hydration and monitor labs closely. Will continue to encourage increase activity as tolerated and monitor for any signs of withdrawal. Diet has been advanced. Per nursing staff patient continues to be confused and needs redire ction. Will continue to monitor closely. Review of systems: Constitutional: Reports some fatigue, no reports of fever or chills Cardiovascular: No reports of chest pain or palpitations Respiratory: No reports of shortness of breath or cough GI: No reports of nausea, vomiting, or diarrhea : No reports of dysuria or retention 12/03/2019 Patient is seen and evaluated in follow-up currently remains in the ICU awaiting transfer out of the ICU once a bed becomes available. Patient is currently maintained on the CIRI protocol and has a police aide at the bedside as he is currently incarcerated. Patient's creatinine kinase today is 3161 and lipase has increased to 3902. Potassium today is 3.3 and being replaced. Liver functions continue to be elevated as well and magnesium is 1.6 today. Will repeat a.m. labs. Will continue to monitor closely. PT/OT consulted to evaluate the patient as he continues to have weakness. Review of systems: Constitutional: Reports fatigue with no reports of fevers or chills Cardiovascular: No reports of chest pain or palpitations Respiratory: Reports intermittent shortness of breath but states has an inhaler, no reports of cough GI: No reports of nausea, vomiting, or diarrhea : No reports of dysuria or retention Neurovascular: Reports some weakness, no reports of numbness 12/04/2019 Patient is seen in follow-up today and has been moved from the ICU and to a [facility] unit and is being closely monitored. Patient continues to be chaperoned by police aide as he is currently incarcerated. Repeat labs this morning sh ow creatinine kinase of 1290 and lipase of 3946. Patient continues to have weakness of his bilateral lower extremities and tightness of the muscles he states. Patient was seen and evaluated by physical therapy recommending subacute rehab as patient continues to require assistance with balance and standing and some fatigue with ambulation. Currently patient denies any chest pain, shortness of breath, or palpitations. Patient is afebrile. No reports of nausea or vomiting patient is tolerating diet. Patient is maintained on CIWA protocol although has not required any Ativan today. Will continue to monitor closely. 12/05/2019 Patient is seen and evaluated in follow-up today with continued weakness although was able to work with physical therapy. Per the police aide at the bedside patient was able to walk to the bathroom with only standby assist with a walker and tolerated. Will continue to have PT/OT follow this patient is currently incarcerated and will be returning to senior care upon discharge and they have no forms of physical therapy in senior care. Patient's creatine kinase continues to trend down and is 919, lipase also trending down at 3199. CBC and BMP within normal limits. Patient continues to have some tongue and right side buccal tenderness and discomfort with eating. Patient states when he was having a seizure he bit his tongue and side of his cheek. Some mild excoriation is noted to the right buccal mucosa and right side of the tongue. Patient does have Motrin for discomfort will add nystatin. No reports of chest pain, shortness of breath, or palpitations. Remains afebrile. Will continue to monitor closely. 12/07/2019 Patient is seen in follow-up with no acute overnight issues. Patient continues to be extremely weak requiring assistance with walking to the bathroom. PT/OT to evaluate the patient again in the morning. Creatine kinase was down to 429. Patient's liver function slowly improving and will repeat a.m. labs. Patient states that his tongue tenderness has slightly improved and is eating a little more. Patient states he was on amoxicillin for tooth infection and does have poor dental caries noted. Will resume amoxicillin. Patient was initiated on Zyprexa per psychiatry and tolerating thus far although still requesting Suboxone, BuSpar, and trazodone that he states he was taking in the outpatient setting. Dietary recommended holding these medications as they may further exacerbate seizure like activity. Currently patient has no reports of chest pain, shortness of breath, or palpitations. Patient is afebrile. No reports of nausea or vomiting and patient is tolerating diet. Objective - Vital Signs Vital signs: Vital Signs Temp 99.0 F 12/07/19 12:56 Pulse 84 12/07/19 12:56 Resp 16 12/07/19 12:56 BP 128/55 12/07/19 12:56 Pulse Ox 98 12/07/19 12:56 Intake & Output 12/06/19 12/07/19 12/07/19 18:59 06:59 18:59 Intake Total 1200 1000 Output Total 1500 Balance 1200 -1500 1000 Intake: IV 1200 Dextrose 5%-0.9% NaCl 1, 1200 000 ml @ 150 mls/hr IV . Q6H40M [facility] Rx#:[id number] Oral 1000 Output: Urine 1500 Other: Voiding Method Toilet Toilet Urinal Urinal # Voids 1 6 3 # Bowel Movements 1 - Exam Gen: This is a 39-year-old male lying in bed, awake, alert and oriented 3. HEENT: Head is atraumatic, normocephalic. Pupils equal, round. Sclerae is anicteric. Multiple missing teeth and dental caries noted with white excoriation noted on the right side of the tongue status post bite during seizure NECK: Supple. No JVD. No lymphadenopathy. No thyromegaly. LUNGS: Diminished breath sounds bilaterally with no wheezes or rhonchi. No intercostal retractions. HEART: Regular rate and rhythm. No murmur. ABDOMEN: Soft. Bowel sounds are present. No masses. No tenderness. EXTREMITIES: No pedal edema. No calf tenderness. NEUROLOGICAL: Patient is awake, alert and oriented x3. Diffusely weak - Labs CBC & Chem 7: 12/07/19 07:35 12/07/19 07:35 Labs: Abnormal Lab Results - Last 24 Hours (Table) 12/06/19 12/06/19 12/07/19 Range/Units 17:00 20:22 07:35 WBC 3.7 L (3.8-10.6) k/uL RBC 3.09 L (4.30-5.90) m/uL Hgb 9.9 L (13.0-17.5) gm/dL Hct 31.1 L (39.0-53.0) % MCV 100.4 H (80.0-100.0) fL Chloride (98-107) mmol/L Creatinine (0.66-1.25) mg/dL POC Glucose (mg/dL) 103 H 113 H (75-99) mg/dL AST (17-59) U/L ALT (4-49) U/L 07/26/20 Range/Units 07:35 WBC (3.8-10.6) k/uL RBC (4.30-5.90) m/uL Hgb (13.0-17.5) gm/dL Hct (39.0-53.0) % MCV (80.0-100.0) fL Chloride 113 H (98-107) mmol/L Creatinine 0.50 L (0.66-1.25) mg/dL POC Glucose (mg/dL) (75-99) mg/dL AST 159 H (17-59) U/L ALT 217 H (4-49) U/L Assessment and Plan Assessment: Acute alcohol withdrawal seizures Acute delirium tremens Hypokalemia Hypomagnesemia Acute rhabdomyolysis Severe alcohol abuse Acute pancreatitis alcohol-related Acute alcoholic hepatitis with elevated liver enzymes Thrombocytopenia likely chronic secondary to EtOH abuse GERD COPD not in exacerbation DVT prophylaxis Recommendations and discussion: Recommend continue with current medications, management, and symptomatic treatme nt. Continue CIWA protocol and monitor for withdrawals. will repeat a.m. labs. Continue to monitor for seizure and maintain seizure and fall precautions. PT/OT to follow. Instructed the patient to increase activity as tolerated. Further recommendations to follow. Prognosis is guarded. Possible discharge in 24-48 hours.
[2019-12-07] MEDS: AMOXICILLIN 500 MG CAP PO SCH ×2 (16:27→23:30)
[2019-12-07 20:21] LABS: Glucose,Whole Blood 111 mg/dL (75-99)
[2019-12-07] MEDS ORDERED: traZODone HCL 100 MG TAB PO SCH (21:00)
--- NOTE | 2019-12-07 23:21 | CONS ---
CONSULTATION DATE OF SERVICE: 12/07/2019 PURPOSE FOR CONSULTATION: Evaluate for alcohol dependence and depression. INTERVAL HISTORY: Patient has been doing fair. He was started last night on Zyprexa. He said that he has not had any problems with the start of the medication. He said he slept poorly through the night. Today he has been up. He notes that he still has shaking. He says his appetite is down. It is noted that liver functions are slowly improving. His CIWA scores today have been essentially zero. The patient voices no difficulty with starting Zyprexa. He still requests being started on other medications that he had been taking prior to admission, which includes BuSpar, Wellbutrin, Suboxone, and trazodone other than p.r.n. Ativan his only psychotropic medication is Zyprexa 5 mg b.i.d. MENTAL STATUS: Patient was lying in bed. He gave fairly good eye contact. He was somewhat restless. It was noteworthy that his shaking in his hands was significantly reduced compared to yesterday. He responded appropriately. His thoughts were clear. He spoke with a clear voice with no slurring of speech. He responded appropriately to questions. He did not say a lot. He had a quiet affect. His mood was somewhat dysphoric. He did not appear to be significantly distressed. There was no indication of thought disorder. It was noteworthy at the end of the interview that he thanked me for coming in by name. It is noted that I had the name on my scrubs, though it is important that he paid enough attention to respond in that manner. ASSESSMENT: I will continue the current diagnosis and treatment plan. I will increase Zyprexa 5 mg 3 times a day. In addition, I will start Desyrel 100 mg at bedtime. I discussed with the patient that we need to be cautious with his medications given that he had a seizure several days ago and would be at risk for recurrent seizures. I would be reluctant to start any other medications. I again discussed with the patient that in the early course of withdrawal over at least the next 6 weeks, there is likely to be no benefit or indication for BuSpar. In addition, there is very little benefit from antidepressants in the for 6 weeks of withdrawal from alcohol. After 6 weeks, antidepressants may be a significant benefit for him. It is unclear what his legal status is. It would be appropriate for social work to be discussing with him substance abuse treatment intervention. At this point, I will not continue to provide followup. If further psychiatric issues are needed to be addressed, please re-consult Psychiatry. MMODL / IJN: [id number] /
[2019-12-08] MEDS: DEXTROSE 5%-0.9% NACL 1,000 ML IV SCH ×2 (05:38→11:04)
[2019-12-08] MEDS: NYSTATIN 100,000 UNIT/ML SUSP 500,000 UNIT/5 ML CUP PO SCH (08:48)
[2019-12-08] MEDS: FOLIC ACID 1 MG TAB PO SCH (08:48)
[2019-12-08] MEDS: MULTIVITAMINS, THERA 1 EACH TAB PO SCH (08:49)
[2019-12-08] MEDS: PANTOPRAZOLE 40 MG TABLET PO SCH (08:49)
[2019-12-08] MEDS: THIAMINE 100 MG TAB PO SCH (08:49)
[2019-12-08] MEDS: AMOXICILLIN 500 MG CAP PO SCH (08:49)
[2019-12-08] MEDS: OLANZapine 5 MG TAB PO SCH (08:49)
[2019-12-08] MEDS: IBUPROFEN 400 MG TAB PO PRN (09:00)
[2019-12-08 09:31] LABS: ALT 208 U/L (4-49); AST 139 U/L (17-59); African American GFR (CKD) >90 (>60 ml/min/1.73 sqM); Albumin 3.8 g/dL (3.5-5.0); Alkaline Phosphatase 61 U/L (38-126); Anion Gap 9 mmol/L; Blood Urea Nitrogen 13 mg/dL (9-20); Carbon Dioxide 21 mmol/L (22-30); Chloride 111 mmol/L (98-107); Creatine Kinase 193 U/L (55-170); Glucose 99 mg/dL (74-99); Non-African American GFR(CKD) >90 (>60 ml/min/1.73 sqM); Potassium 3.9 mmol/L (3.5-5.1); Sodium 141 mmol/L (137-145); Total Bilirubin 0.6 mg/dL (0.2-1.3)
[2019-12-08 11:31] LABS: HCT 30.4 % (39.0-53.0); HGB 10.1 gm/dL (13.0-17.5); Macrocytosis Slight; Mean Platelet Volume 9.4; Platelet Count 239 k/uL (150-450); RBC 3.04 m/uL (4.30-5.90); RDW 14.7 % (11.5-15.5); WBC 4.5 k/uL (3.8-10.6)
[2019-12-08 11:46] VITALS: BP 106/70; PULSE 84; TEMP 99
[2019-12-08 12:33] LABS: Basophils # (M) 0.09 k/uL (0-0.2); Eosinophils # (M) 0.09 k/uL (0-0.7); Lymphocytes # (M) 1.67 k/uL (1.0-4.8); Monocytes # (M) 0.95 k/uL (0-1.0); Myelocytes # (M) 0.05 k/uL (0); Myelocytes % 1 %; Neutrophils # (M) 1.76 k/uL (1.3-7.7); Neutrophils % (M) 39 %; Nucleated Red Blood Cells 0 /100 WBC (0-0); Total Cells Counted 200
--- NOTE | 2019-12-08 12:53 | P.DS ---
Providers Date of admission: 11/29/19 17:44 Expected date of discharge: 12/08/19 Attending physician: Mary Rivera Consults: 11/29/19 17:44 Consult Physician Stat Consulting Provider: Kami Allred Consult Reason/Comments: icu patient Do you want consulting provider notified?: Already Contacted 12/06/19 08:47 Consult Physician Routine Consulting Provider: Surya Lindo Consult Reason/Comments: Depression Do you want consulting provider notified?: Yes Primary care physician: Stated None Hospital Course: final diagnosis Acute alcohol withdrawal seizures Acute delirium tremens Dental caries, poor dentition with possible tooth abscess, present on admission Hypokalemia Hypomagnesemia Acute rhabdomyolysis Severe alcohol abuse Acute pancreatitis alcohol-related Acute alcoholic hepatitis with elevated liver enzymes Thrombocytopenia likely chronic secondary to EtOH abuse GERD COPD not in exacerbation DVT prophylaxis Discharge disposition Patient is being discharged in a stable condition with guarded prognosis to long term. patient is currently incarcerated and will be seen by long term physician upon discharge. Patient will continue on oral antibiotics in the form of amoxicillin 3 times daily for the next 10 days. Patient will need to see a primary care provider along with [facility] for possible alcohol rehab and will also need to establish and follow up with a dentist once discharged. Total time taken is 35 minutes. History of present illness This is an 39-year-old male who was recently admitted with alcohol-induced witnessed seizure and was being closely monitored. patient was briefly monitored closely in the ICU for delirium tremens maintained on CIWA protocol and was also found to have acute pancreatitis. Patient was seen and evaluated by multiple medical consultations. patient also had some rhabdomyolysis and CK have been trending down. Patient's lipase continues to be elevated will patient denies any abdominal discomfort and has been eating with no reports of nausea or vomiting noted. patient also states he bit his tongue on the right side during his seizure activity prior to admission and will continue on nystatin oral swish for another week until finished. Patient also has poor oral dentition and has a tooth abscess and is currently maintained on amoxicillin and will continue 3 times daily for the next 10 days and then may discontinue. Patient will need to follow-up with a dentist and establish with a new primary care provider in the outpatient setting. Patient was receiving Suboxone from his previous primary care provider and will continue in the outpatient setting. Patient does need to establish with primary care provider or pain management to continue with this medication. Patient was also seen and evaluated by psychiatry and adjustments to medications have been made. patient is not currently on any antiseizure medication as he states this is all alcohol related. Patient also instructed to follow-up with [facility] for possible alcohol rehab once released from the long term. patient continued to be weak although is walking to the bathroom with no difficulties. Currently no reports of chest pain, shortness of breath, or palpitations. Patient is afebrile. No reports of nausea or vomiting and patient is tolerating diet. Patient will be discharged to long term today. On exam vital signs are stable. Temp is 99.0F, pulse is 84, respirations are 16, blood pressure is 106/70, oxygen saturation is 97% on room air. Cardio S1, S2 are muffled. Respiratory shows diminished breath sounds at the bases with no wheezing or rhonchi noted. Abdomen is soft and nontender. Nervous system shows no focal deficits. Please refer to medication reconciliation sheet for a list of medications. Patient Condition at Discharge: Stable Plan - Discharge Summary New Discharge Prescriptions: New Amoxicillin 500 mg PO Q8HR 10 Days #30 cap traZODone HCL [Desyrel] 100 mg PO HS #12 tab Folic Acid 1 mg PO DAILY tab Multivitamins, Thera [Multivitamin (formulary)] 1 each PO DAILY tab Nystatin 100,000 Unit/ml Susp [Mycostatin Oral Susp] 500,000 unit PO QID ml Acetaminophen Tab [Tylenol] 500 mg PO Q6HR PRN tab PRN Reason: Fever And/ Or Pain Thiamine [Vitamin B-1] 100 mg PO BID-W/MEALS tab OLANZapine [ZyPREXA] 5 mg PO TID #12 tab Continue Albuterol Inhaler [Ventolin Hfa Inhaler] 2 puff INHALATION RT-QID PRN PRN Reason: Shortness Of Breath traZODone HCL 300 mg PO HS buPROPion XL [Wellbutrin XL] 450 mg PO DAILY Omeprazole 20 mg PO DAILY Ibuprofen 800 mg PO Q8H Buprenorphine HCl/Naloxone HCl [Suboxone 2 mg-0.5 mg Sl Film] 1 each SL BID Discontinued busPIRone HCL 20 mg PO TID Discharge Medication List Albuterol Inhaler [Ventolin Hfa Inhaler] 2 puff INHALATION RT-QID PRN 12/06/19 [History] Buprenorphine HCl/Naloxone HCl [Suboxone 2 mg-0.5 mg Sl Film] 1 each SL BID 12/06/19 [History] Ibuprofen 800 mg PO Q8H 12/06/19 [History] Omeprazole 20 mg PO DAILY 12/06/19 [History] buPROPion XL [Wellbutrin XL] 450 mg PO DAILY 12/06/19 [History] traZODone HCL 300 mg PO HS 12/06/19 [History] Acetaminophen Tab [Tylenol] 500 mg PO Q6HR PRN tab 12/08/19 [Rx] Amoxicillin 500 mg PO Q8HR 10 Days #30 cap 12/08/19 [Rx] Folic Acid 1 mg PO DAILY tab 12/08/19 [Rx] Multivitamins, Thera [Multivitamin (formulary)] 1 each PO DAILY tab 12/08/19 [Rx] Nystatin 100,000 Unit/ml Susp [Mycostatin Oral Susp] 500,000 unit PO QID ml 12/08/19 [Rx] OLANZapine [ZyPREXA] 5 mg PO TID #12 tab 12/08/19 [Rx] Thiamine [Vitamin B-1] 100 mg PO BID-W/MEALS tab 12/08/19 [Rx] traZODone HCL [Desyrel] 100 mg PO HS #12 tab 12/08/19 [Rx] Follow up Appointment(s)/Referral(s): None,Stated [Primary Care Provider] - 1-2 days Patient Instructions/Handouts: Nonepileptic Seizures (DC), Alcohol Withdrawal (DC) Activity/Diet/Wound Care/Special Instructions: patient is going back to long term upon discharge activity as tolerated Continue current diet Continue with antibiotics for 10 days and then may discontinue Follow-up with primary care provider upon discharge Avoid alcohol intake Discharge Disposition: DC/TRANSFER COURT/LAW
== END 2019-12-08 13:42 | DRG 100 ==
LOC: EC 15:07 → 2SICU 17:44 → 5NMEDONC 12-03 16:49
PROVIDERS: ADMIT Internal Medicine; ATTEND Internal Medicine
DX: G40.89 Other seizures (principal); K85.20 Alcohol induced acute pancreatitis without necrosis or infection; F10.231 Alcohol dependence with withdrawal delirium; M62.82 Rhabdomyolysis; E44.0 Moderate protein-calorie malnutrition; Z68.1 Body mass index [BMI] 19.9 or less, adult; D69.59 Other secondary thrombocytopenia; E83.42 Hypomagnesemia; E87.6 Hypokalemia; F31.9 Bipolar disorder, unspecified; F41.9 Anxiety disorder, unspecified; J44.9 Chronic obstructive pulmonary disease, unspecified; K02.9 Dental caries, unspecified; K04.7 Periapical abscess without sinus; K21.9 Gastro-esophageal reflux disease without esophagitis; K70.10 Alcoholic hepatitis without ascites; F11.11 Opioid abuse, in remission; H54.62 Unqualified visual loss, left eye, normal vision right eye; M41.9 Scoliosis, unspecified; R41.1 Anterograde amnesia; Z78.1 Physical restraint status; Z79.899 Other long term (current) drug therapy; Z82.5 Family history of asthma and other chronic lower respiratory diseases; Z65.3 Problems related to other legal circumstances; Z11.59 Encounter for screening for other viral diseases; Z81.3 Family history of other psychoactive substance abuse and dependence
CPT/HCPCS: 36415; 70450; 71045; 76700; 76857; 80048; 80053; 80306; 80320; 81001; 82150; 82247; 82550; 82803; 83605; 83690; 83735; 84100; 84132; 84145; 84443; 84450; 84460; 85025; 85027; 85610; 85730; 86140; 87040; 87086; 93005; 94640; 96361; 96365; 96372; 96375; 96376; 99291

== ENCOUNTER 2019-12-29 16:30 | Day surgery (SDC) | payer OTHER ==
[~2019-12-29 16:30] MED LIST: DEXAMETHASONE SOD PHOSPHATE 10 MG/ML 1 ML VIAL IV ONE; HYDROmorphone 0.5 MG/0.5 ML SYRINGE IVP PRN; LACTATED RINGERS 1,000 ML IV SCH; MIDAZOLAM 2 MG/2 ML VIAL IV PRN; ONDANSETRON 4 MG/2 ML VIAL IVP ONE; ONDANSETRON 4 MG/2 ML VIAL ONE
[2019-12-29] MEDS ORDERED: PROPOFOL 10 MG/ML 20 ML VIAL IV ONE (17:10)
[2019-12-29] MEDS ORDERED: fentaNYL (PF) 50 MCG/ML 2 ML AMP ONE (17:10)
[2019-12-29] MEDS ORDERED: MIDAZOLAM 2 MG/2 ML VIAL ONE (17:10)
[2019-12-29] MEDS ORDERED: LACTATED RINGERS 1,000 ML IV ONE (17:59)
[2019-12-29] MEDS ORDERED: SODIUM CHLORIDE 0.9% 50 ML with ceFAZolin 2,000 MG IV ONE ×2 (18:55)
[2019-12-29 21:31] VITALS: BP 113/77; PULSE 69; RESP 19; TEMP 97.9
[2019-12-30] MEDS ORDERED: SCOPOLAMINE 1.5MG/72HR PATCH TRANSDERM ONE (06:00)
--- NOTE | 2019-12-30 06:55 | FL ---
EXAMINATION TYPE: FL guidance operating room, XR finger LT DATE OF EXAM: 12/29/2019 CLINICAL HISTORY: Fifth finger dislocation. TECHNIQUE: Fluoroscopy. Intraoperative 2 views left finger. COMPARISON: None. FINDINGS: Fluoroscopic guidance was provided during open reduction internal fixation procedure perfo rmed by Dr. Choe. A total of 74 seconds of fluoroscopic time was utilized during the procedure and four spot intraoperative images are acquired. Images acquired show successful reduction of the dislocation at the fifth PIP joint with subsequent p lacement of fixating external K wire. IMPRESSION: As Above.
--- NOTE | 2019-12-30 11:47 | P.OP ---
Date of Procedure: 12/29/19 Preoperative Diagnosis: Irreducible, subacute left small finger proximal interphalangeal (PIP) joint dislocation Postoperative Diagnosis: Irreducible, subacute left small finger proximal interphalangeal (PIP) joint dislocation Procedure(s) Performed: 1. Open reduction of left small finger PIP joint dislocation with transarticular pinning 2. Repair of left small finger PIP joint radial collateral ligament (RCL) and volar plate Implants: 0.045 K wire Anesthesia: MAC, local Surgeon: Ac Choe Estimated Blood Loss (ml): 5 Condition: stable Disposition: PACU Indications for Procedure: The patient is 39-year-old incarcerated male who sustained a dislocation to his left small finger PIP joint after a fall (reportedly related to alcohol withdrawals/DTs). [facility] was [facility]. It was more than a week before the patient presented to my office. A closed reduction was attempted but was also unsuccessful. Treatment options (and associated risks & benefits) were discussed in the office. We specifically discussed the expectation for stiffness and potential for permanent loss of motion, as well as recurrent instability or dislocation and possible need for additional procedures or surgeries. The patient expressed understanding and willingness to accept these risks and elected operative treatment with open reduction and stabilization. In preop, additional questions were addressed and the patient wished to proceed with surgery. Consent forms were signed. The operative site was confirmed and marked. Description of Procedure: After consent was obtained, lidocaine with epinephrine was injected around the planned incision/surgical site in preop, using aseptic technique. After an appropriate interval of time, the patient was brought to the OR and positioned supine with the operative limb on a hand table. The left upper extremity was then prepped and draped in standard, sterile fashion. A time-out was performed, confirming patient identifiers, the operative side, the site and the procedure to be performed: all team members expressed agreement. The joint was evaluated with intraoperative fluoroscopy and was still dislocated and grossly displaced. A manual closed reduction was briefly attempted but, as expected, was unsuccessful. The decision was made to proceed with open reduction. Loupe magnification was utilized throughout the case for optimum visualization. A curvilinear dorsal incision was marked, centered over the head of the proximal phalanx. The skin was sharply incised and full-thickness skin flaps were elevated. The extensor mechanism was subluxed ulnarly but appeared intact. The extensor expansion was incised between the tendon and the lateral bands and the extensor mechanism was mobilized. The head of the proximal phalanx was visualiz ed. The flexor tendons were completely dislocated ulnarly along with the middle phalanx. The volar plate was disrupted, with the majority still attached to the base of the middle phalanx. The RCL was completely disrupted off the proximal phalanx with a small stump of tissue remaining at the origin. The intact distal portion of the ligament was hypertrophic and folded into the joint space along with the volar plate and radial joint capsule, preventing reduction. Once removed, the joint surfaces were inspected: no obvious fractures or large focal chondral injuries were identified. Hematoma and thickened fibrous tissue were resected from the joint space with a rongeur and the joint was thoroughly irrigated with normal saline. Due to the amount of time that the joint was dislocated, the ulnar soft tissues were moderately contracted. To facilitate reduction, the contracted ulnar joint capsule was mobilized and released with a [place] and the proper ulnar collateral ligament origin was released from the head of the proximal phalanx. Axial traction was applied while a [place] elevator was used to carefully shoehorn the middle phalanx back into position. Concentric reduction was achieved and confirmed on imaging. Motion testing revealed a smooth articulation in the midrange, but there was a persistent tendency towards lateral (ulnar) dislocation. The RCL and radial aspect of the volar plate were repaired with 4-0 FiberWire sutures using a combination of Sa[place] and horizontal mattress stitches. This afforded much better coronal plane stability, while still allowing full passive extension and greater than 90 of passive flexion. Since the joint was dislocated and substantially shortened for two weeks, the decision was made to protect the reduction and neutralize deforming forces with transarticular pinning. With the joint held in ~20 of flexion, a 0.045 K wire was introduced percutaneously into the middle phalanx and advanced retrograde and obliquely across the IP joint. Wire position and joint reduction were confirmed on orthogonal imaging. This provided good stability in all planes. The pin was cut outside the skin and covered with a [place] ball. A dose of prop hylactic IV antibiotics was administered intraoperatively. Good hemostasis was maintained throughout the case without the need for a tourniquet. The wound was thoroughly irrigated with normal saline. The extensor expansion was repaired with interrupted 3-0 Vicryl sutures. The incision was closed with interrupted 5-0 nylon sutures. A soft, sterile dressing (Adaptic, 4x4s, david and Coban) was applied. All sponge, needle and instrument counts were correct at the end of the case. The patient tolerated the procedure well and was transferred to recovery in stable condition.
== END 2019-12-29 23:41 ==
LOC: OR 16:30 → 4SSUR 19:29 → OR 23:41
PROVIDERS: ATTEND Orthopaedic Surgery
DX: S63.287A Dislocation of proximal interphalangeal joint of left little finger, initial encounter (principal); J44.9 Chronic obstructive pulmonary disease, unspecified; F17.210 Nicotine dependence, cigarettes, uncomplicated; K21.9 Gastro-esophageal reflux disease without esophagitis; Z79.899 Other long term (current) drug therapy; W19.XXXA Unspecified fall, initial encounter; F32.9 Major depressive disorder, single episode, unspecified; Z87.11 Personal history of peptic ulcer disease
CPT/HCPCS: 73140; 26785; 26548; 26540; C1713; J2250; J2405; J0690; J3010; J2704

== ENCOUNTER 2020-03-06 09:59 | Inpatient (IN) | payer OTHER ==
[2020-03-06] MEDS ORDERED: SODIUM CHLORIDE 0.9% 1,000 ML IV STA (10:29)
[2020-03-06] MEDS ORDERED: ONDANSETRON 4 MG/2 ML VIAL IVP STA (10:29)
[2020-03-06] MEDS ORDERED: THIAMINE 100 MG/ML 2 ML VIAL IM STA (10:31)
[2020-03-06] MEDS ORDERED: LORazepam 2 MG/ML INJ IV PRN ×2 (10:31)
--- NOTE | 2020-03-06 10:39 | ED ---
General Adult HPI - General Chief complaint: Chest Pain Stated complaint: seizures Time Seen by Provider: 03/06/20 10:06 Source: family Mode of arrival: wheelchair Limitations: physical limitation - History of Present Illness Initial comments: patient is a 39-year-old male, history of alcohol abuse, presenting to emergency Department with complaints of chest pain that happened last night as well as nausea, no appetite memory impairment. Patient's is here with him and is providing some of the history. Patient has a history of alcohol abuse, in the last few months it has increased, drinking about 2 pints a day. The states he lives with his father. The father states that his drinking has increased and he has not eaten in about 2-3 weeks. He has a history of seizures when he goes through withdrawals. the states that the patient does not answering questions appropriately, does not remember ow old his daughter is. He has been trying to drink Ensure drinks. There has been no falls or trauma. Patient states last drink was last night. His states that he was having intense chest pains yesterday evening however the did not bring him in secondary to how much she had drink at night. He states currently he is not having any pain anywhere. He is mildly nauseous. He denies any recent fever, chills. He denies a headache, dizziness. He has no further complaints. Upon arrival to the ER, patient is tachycardia at 118, rest of vitals are normal. - Related Data Home Medications Medication Instructions Recorded Confirmed Buprenorphine HCl/Naloxone HCl 1 film SL BID 03/06/20 03/06/20 [Suboxone 8 mg-2 mg Sl Film] buPROPion XL [Wellbutrin Xl] 300 mg PO DAILY 03/06/20 03/06/20 busPIRone HCL 15 mg PO BID 03/06/20 03/06/20 clonazePAM 0.25 mg PO DAILY PRN 03/06/20 03/06/20 Allergies Allergy/AdvReac Type Severity Reaction Status Date / Time No Known Allergies Allergy Verified 03/06/20 11:47 Review of Systems ROS Statement: Those systems with pertinent positive or pertinent negative responses have been documented in the HPI. ROS Other: All systems not noted in ROS Statement are negative. Past Medical History Past Medical History: COPD, GERD/Reflux, Seizure Disorder Additional Past Medical History / Comment(s): Alcoholism , pt has scoliosis as a child History of Any Multi-Drug Resistant Organisms: None Reported Past Surgical History: No Surgical Hx Reported Additional Past Surgical History / Comment(s): Strabismus surgery as a child- Left eye surgery. blind in left eye Past Anesthesia/Blood Transfusion Reactions: No Reported Reaction Past Psychological History: Anxiety, Bipolar, Depression Smoking Status: Current every day smoker Past Alcohol Use History: Abuse, Daily, Heavy Past Drug Use History: None Reported - Past Family History Father Family Medical History: COPD Additional Family Medical History / Comment(s): Father is alive in his 50s with history of COPD. Sister(s) Additional Family Medical History / Comment(s): He has 5 sisters and one has drug abuse issues. Patient does not have any brothers. He has one 5-year-old daughter. Mother History Unknown: Yes Additional Family Medical History / Comment(s): Mother is alive in her 50s with no major medical problems. General Exam - General Exam Comments Initial Comments: GENERAL: patient appears disheveled, appears intoxicated, no acute distress. HEAD: Atraumatic, normocephalic. EYES: Pupils equal round and reactive to light, extraocular movements intact, sclera anicteric, conjunctiva are normal. Eyelids were unremarkable. ENT: TMs normal, nares patent, oropharynx clear without exudates. Moist mucous membranes. NECK: Normal range of motion, supple without lymphadenopathy or JVD. LUNGS: Unlabored respirations. Breath sounds clear to auscultation bilaterally and equal. No wheezes rales or rhonchi. HEART: Tachycardia rate and rhythm without murmurs, rubs or gallops. ABDOMEN: Soft, nontender, normoactive bowel sounds. No guarding, no rebound. No masses appreciated. : Deferred MUSCULOSKELETAL: Normal extremities with adequate strength and normal range of motion, no pitting or edema. No clubbing or cyanosis. NEUROLOGICAL: Patient is alert and oriented x self. he does know his 's name, he does not know the year, where he is at. He does know the president. Motor and sensory are also intact. Cranial nerves II through XII grossly intact. Symmetrical smile. PSYCH: Normal mood, normal affect. SKIN: Warm, Dry, normal turgor, no rashes or lesions noted. Limitations: physical limitation Course Vital Signs 03/06/20 10:02 Temperature 99.3 F Pulse Rate 118 H Respiratory 18 Rate Blood Pressure 121/87 O2 Sat by Pulse 99 Oximetry EKG Findings - EKG Comments: EKG Findings:: sinus tachycardia, nonspecific ST abnormalities, no signs of acute ischemia. Ventricular rate 104, OR interval 138, QTC 362. Medical Decision Making - Medical Decision Making patient is a 39-year-old male with history of alcohol abuse, seizures from withdrawal, presenting for altered mental, chest pain, nausea. He was tachycardia on arrival, rest of vitals normal. EKG shows no acute findings. Patient appears to be intoxicated, alert and oriented times self. Does not know his birthday or location. Labs reveal a normal white count, normal hemoglobin. Lactic acid is 3.2, liver enzymes are elevated, troponin is normal. Lipase is 2017, urine shows no evidence of infection, urine tox is negative. Serum alcoh ol is 399. Patient will be admitted for alcohol intoxication, chest pain r/o, history of seizures with withdrawals. [facility] protocol in placed. Patient is receiving fluids, thiamine, Zofran. Patient is in agreement with this plan of care. Patient was accepted by Dr. Rahman, case discussed with Dr. Verduzco. - Lab Data Result diagrams: 03/06/20 10:35 03/06/20 10:35 Lab Results 03/06/20 03/06/20 03/06/20 Range/Units 10:35 10:35 10:35 WBC 4.2 (3.8-10.6) k/uL RBC 4.97 (4.30-5.90) m/uL Hgb 15.4 (13.0-17.5) gm/dL Hct 47.2 (39.0-53.0) % MCV 94.9 (80.0-100.0) fL MCH 31.0 (25.0-35.0) pg MCHC 32.7 (31.0-37.0) g/dL RDW 12.6 (11.5-15.5) % Plt Count 85 L (150-450) k/uL Neutrophils % 60 % Lymphocytes % 34 % Monocytes % 3 % Eosinophils % 1 % Basophils % 2 % Neutrophils # 2.5 (1.3-7.7) k/uL Lymphocytes # 1.4 (1.0-4.8) k/uL Monocytes # 0.1 (0-1.0) k/uL Eosinophils # 0.0 (0-0.7) k/uL Basophils # 0.1 (0-0.2) k/uL PT 9.3 (9.0-12.0) sec INR 0.9 (<1.2) APTT 20.4 L (22.0-30.0) sec Sodium (137-145) mmol/L Potassium (3.5-5.1) mmol/L Chloride (98-107) mmol/L Carbon Dioxide (22-30) mmol/L Anion Gap mmol/L BUN (9-20) mg/dL Creatinine (0.66-1.25) mg/dL Est GFR (CKD-EPI)AfAm (>60 ml/min/1.73 sqM) Est GFR (CKD-EPI)NonAf (>60 ml/min/1.73 sqM) Glucose (74-99) mg/dL Plasma Lactic Acid Guillermo (0.7-2.0) mmol/L Calcium (8.4-10.2) mg/dL Magnesium (1.6-2.3) mg/dL Total Bilirubin (0.2-1.3) mg/dL AST (17-59) U/L ALT (4-49) U/L Alkaline Phosphatase (38-126) U/L Troponin I (0.000-0.034) ng/mL Total Protein (6.3-8.2) g/dL Albumin (3.5-5.0) g/dL Amylase (30-110) U/L Lipase (23-300) U/L Urine Color Yellow Urine Appearance Clear (Clear) Urine pH 6.0 (5.0-8.0) Ur Specific [place] 1.012 (1.001-1.035) Urine Protein 2+ H (Negative) Urine Glucose (UA) Negative (Negative) Urine Ketones Negative (Negative) Urine Blood Negative (Negative) Urine Nitrite Negative (Negative) Urine Bilirubin Negative (Negative) Urine Urobilinogen <2.0 (<2.0) mg/dL Ur Leukocyte Esterase Negative (Negative) Urine RBC <1 (0-5) /hpf Urine WBC 1 (0-5) /hpf Urine Opiates Screen (NotDetected) Ur Oxycodone Screen (NotDetected) Urine Methadone Screen (NotDetected) Ur Propoxyphene Screen (NotDetected) Ur Barbiturates Screen (NotDetected) U Tricyclic Antidepress (NotDetected) Ur Phencyclidine Scrn (NotDetected) Ur Amphetamines Screen (NotDetected) U Methamphetamines Scrn (NotDetected) U Benzodiazepines Scrn (NotDetected) Urine Cocaine Screen (NotDetected) U Marijuana (THC) Screen (NotDetected) Serum Alcohol mg/dL 03/06/20 03/06/20 03/06/20 Range/Units 10:35 10:35 10:35 WBC (3.8-10.6) k/uL RBC (4.30-5.90) m/uL Hgb (13.0-17.5) gm/dL Hct (39.0-53.0) % MCV (80.0-100.0) fL MCH (25.0-35.0) pg MCHC (31.0-37.0) g/dL RDW (11.5-15.5) % Plt Count (150-450) k/uL Neutrophils % % Lymphocytes % % Monocytes % % Eosinophils % % Basophils % % Neutrophils # (1.3-7.7) k/uL Lymphocytes # (1.0-4.8) k/uL Monocytes # (0-1.0) k/uL Eosinophils # (0-0.7) k/uL Basophils # (0-0.2) k/uL PT (9.0-12.0) sec INR (<1.2) APTT (22.0-30.0) sec Sodium 143 (137-145) mmol/L Potassium 3.5 (3.5-5.1) mmol/L Chloride 94 L (98-107) mmol/L Carbon Dioxide 33 H (22-30) mmol/L Anion Gap 16 mmol/L BUN 20 (9-20) mg/dL Creatinine 0.87 (0.66-1.25) mg/dL Est GFR (CKD-EPI)AfAm >90 (>60 ml/min/1.73 sqM) Est GFR (CKD-EPI)NonAf >90 (>60 ml/min/1.73 sqM) Glucose 110 H (74-99) mg/dL Plasma Lactic Acid Guill[place] 3.2 H* (0.7-2.0) mmol/L Calcium 9.2 (8.4-10.2) mg/dL Magnesium 1.8 (1.6-2.3) mg/dL Total Bilirubin 0.5 (0.2-1.3) mg/dL AST 308 H (17-59) U/L ALT 124 H (4-49) U/L Alkaline Phosphatase 98 (38-126) U/L Troponin I <0.012 (0.000-0.034) ng/mL Total Protein 9.0 H (6.3-8.2) g/dL Albumin 4.9 (3.5-5.0) g/dL Amylase 184 H (30-110) U/L Lipase 2017 H (23-300) U/L Urine Color Urine Appearance (Clear) Urine pH (5.0-8.0) Ur Specific [place] (1.001-1.035) Urine Protein (Negative) Urine Glucose (UA) (Negative) Urine Ketones (Negative) Urine Blood (Negative) Urine Nitrite (Negative) Urine Bilirubin (Negative) Urine Urobilinogen (<2.0) mg/dL Ur Leukocyte Esterase (Negative) Urine RBC (0-5) /hpf Urine WBC (0-5) /hpf Urine Opiates Screen (NotDetected) Ur Oxycodone Screen (NotDetected) Urine Methadone Screen (NotDetected) Ur Propoxyphene Screen (NotDetected) Ur Barbiturates Screen (NotDetected) U Tricyclic Antidepress (NotDetected) Ur Phencyclidine Scrn (NotDetected) Ur Amphetamines Screen (NotDetected) U Methamphetamines Scrn (NotDetected) U Benzodiazepines Scrn (NotDetected) Urine Cocaine Screen (NotDetected) U Marijuana (THC) Screen (NotDetected) Serum Alcohol 399 H* mg/dL 03/06/20 Range/Units 10:35 WBC (3.8-10.6) k/uL RBC (4.30-5.90) m/uL Hgb (13.0-17.5) gm/dL Hct (39.0-53.0) % MCV (80.0-100.0) fL MCH (25.0-35.0) pg MCHC (31.0-37.0) g/dL RDW (11.5-15.5) % Plt Count (150-450) k/uL Neutrophils % % Lymphocytes % % Monocytes % % Eosinophils % % Basophils % % Neutrophils # (1.3-7.7) k/uL Lymphocytes # (1.0-4.8) k/uL Monocytes # (0-1.0) k/uL Eosinophils # (0-0.7) k/uL Basophils # (0-0.2) k/uL PT (9.0-12.0) sec INR (<1.2) APTT (22.0-30.0) sec Sodium (137-145) mmol/L Potassium (3.5-5.1) mmol/L Chloride (98-107) mmol/L Carbon Dioxide (22-30) mmol/L Anion Gap mmol/L BUN (9-20) mg/dL Creatinine (0.66-1.25) mg/dL Est GFR (CKD-EPI)AfAm (>60 ml/min/1.73 sqM) Est GFR (CKD-EPI)NonAf (>60 ml/min/1.73 sqM) Glucose (74-99) mg/dL Plasma Lactic Acid [place] (0.7-2.0) mmol/L Calcium (8.4-10.2) mg/dL Magnesium (1.6-2.3) mg/dL Total Bilirubin (0.2-1.3) mg/dL AST (17-59) U/L ALT (4-49) U/L Alkaline Phosphatase (38-126) U/L Troponin I (0.000-0.034) ng/mL Total Protein (6.3-8.2) g/dL Albumin (3.5-5.0) g/dL Amylase (30-110) U/L Lipase (23-300) U/L Urine Color Urine Appearance (Clear) Urine pH (5.0-8.0) Ur Specific [place] (1.001-1.035) Urine Protein (Negative) Urine Glucose (UA) (Negative) Urine Ketones (Negative) Urine Blood (Negative) Urine Nitrite (Negative) Urine Bilirubin (Negative) Urine Urobilinogen (<2.0) mg/dL Ur Leukocyte Esterase (Negative) Urine RBC (0-5) /hpf Urine WBC (0-5) /hpf Urine Opiates Screen Not Detected (NotDetected) Ur Oxycodone Screen Not Detected (NotDetected) Urine Methadone Screen Not Detected (NotDetected) Ur Propoxyphene Screen Not Detected (NotDetected) Ur Barbiturates Screen Not Detected (NotDetected) U Tricyclic Antidepress Not Detected (NotDetected) Ur Phencyclidine Scrn Not Detected (NotDetected) Ur Amphetamines Screen Not Detected (NotDetected) U Methamphetamines Scrn Not Detected (NotDetected) U Benzodiazepines Scrn Not Detected (NotDetected) Urine Cocaine Screen Not Detected (NotDetected) U Marijuana (THC) Screen Not Detected (NotDetected) Serum Alcohol mg/dL Disposition Clinical Impression: Alcohol intoxication, Chest pain Disposition: ADMITTED IP TO THIS [facility] Condition: Stable Referrals: None,Stated [Primary Care Provider] - 1-2 days Decision Date: 03/06/20 Decision Time: 12:13
[2020-03-06 11:24] LABS: Basophils # (A) 0.1 k/uL (0-0.2); Basophils % (A) 2 %; Eosinophils % (A) 1 %; HCT 47.2 % (39.0-53.0); HGB 15.4 gm/dL (13.0-17.5); Lymphocytes # (A) 1.4 k/uL (1.0-4.8); Lymphocytes % (A) 34 %; MCHC 32.7 g/dL (31.0-37.0); MCV 94.9 fL (80.0-100.0); Mean Platelet Volume 9.3; Monocytes # (A) 0.1 k/uL (0-1.0); Monocytes % (A) 3 %; Neutrophils # (A) 2.5 k/uL (1.3-7.7); Neutrophils % (A) 60 %; RBC 4.97 m/uL (4.30-5.90); RDW 12.6 % (11.5-15.5); WBC 4.2 k/uL (3.8-10.6)
[2020-03-06 11:25] LABS: Appearance,Urine Clear (Clear); Bilirubin,Urine Negative (Negative); Blood,Urine Negative (Negative); Color,Urine Yellow; Glucose,Urine (UA) Negative (Negative); Ketones,Urine Negative (Negative); Leukocyte Esterase,Urine Negative (Negative); Nitrite,Urine Negative (Negative); Protein,Urine 2+ (Negative); RBC,Urine <1 /hpf (0-5); Specific Gravity,Urine 1.012 (1.001-1.035); Urobilinogen,Urine <2.0 mg/dL (<2.0); WBC,Urine 1 /hpf (0-5)
[2020-03-06 11:36] LABS: ALT 124 U/L (4-49); AST 308 U/L (17-59); African American GFR (CKD) >90 (>60 ml/min/1.73 sqM); Albumin 4.9 g/dL (3.5-5.0); Alkaline Phosphatase 98 U/L (38-126); Amylase 184 U/L (30-110); Anion Gap 16 mmol/L; Blood Urea Nitrogen 20 mg/dL (9-20); Calcium 9.2 mg/dL (8.4-10.2); Carbon Dioxide 33 mmol/L (22-30); Chloride 94 mmol/L (98-107); Glucose 110 mg/dL (74-99); Magnesium 1.8 mg/dL (1.6-2.3); Non-African American GFR(CKD) >90 (>60 ml/min/1.73 sqM); Potassium 3.5 mmol/L (3.5-5.1); Sodium 143 mmol/L (137-145); Total Bilirubin 0.5 mg/dL (0.2-1.3)
[2020-03-06 11:40] LABS: INR 0.9 (<1.2); Prothrombin Time 9.3 sec (9.0-12.0)
[2020-03-06 11:45] LABS: Partial Thromboplastin Time 20.4 sec (22.0-30.0)
[2020-03-06 11:47] LABS: Amphetamine Screen,Urine Not Detected (NotDetected); Barbiturate Screen,Urine Not Detected (NotDetected); Benzodiazepines Screen,Urine Not Detected (NotDetected); Cocaine Screen,Urine Not Detected (NotDetected); Methadone Screen, Urine Not Detected (NotDetected); Opiate Screen,Urine Not Detected (NotDetected); Oxycodone Screen, Urine Not Detected (NotDetected); Phencyclidine Screen,Urine Not Detected (NotDetected); Tricyclic Antidepressant,Urine Not Detected (NotDetected); Urn Cannabinoid Scrn Not Detected (NotDetected)
[2020-03-06 11:50] LABS: Alcohol 399 mg/dL
[2020-03-06 12:06] LABS: Platelet Count 85 k/uL (150-450)
[2020-03-06] MEDS: LORazepam 2 MG/ML INJ IV PRN ×3 (12:06→21:47)
[2020-03-06] MEDS ORDERED: ONDANSETRON 4 MG/2 ML VIAL IVP PRN (12:07)
[2020-03-06] MEDS ORDERED: NALOXONE 0.4 MG/ML 1 ML VIAL IV PRN (12:07)
--- NOTE | 2020-03-06 12:19 | CT ---
EXAMINATION TYPE: CT brain wo con DATE OF EXAM: 03/06/2020 HISTORY: Altered mental status. CT DLP: 1035.4 mGycm. Automated Exposure Control for Dose Reduction was Utilized. TECHNIQUE: CT scan of the head is performed without contrast. COMPARISON: CT scan 11/29/2019. FINDINGS: There is no acute intracranial hemorrhage, midline shift, or mass effect identified. Brain parenchyma appears normal. The ventricles, sulci, and cisterns are normal in size and configuration. No extra-axial fluid collection. Bones and extracranial soft tissues are intact. The globes are gross ly symmetric. Visualized sinuses and mastoid air cells are clear. IMPRESSION: No acute intracranial hemorrhage, midline shift, or mass effect.
--- NOTE | 2020-03-06 12:20 | XR ---
EXAMINATION TYPE: XR chest 2V DATE OF EXAM: 03/06/2020 CLINICAL HISTORY: chest pain. TECHNIQUE: Frontal and lateral view of the chest. COMPARISON: 11/29/2019 chest radiograph FINDINGS: The cardiomediastinal silhouette is within normal limits for size. Pulmonary vasculature i s normal. There is no focal air space opacity, pleural effusion, or pneumothorax seen. The osseous st ructures are intact. IMPRESSION: No acute cardiopulmonary process.
[2020-03-06] MEDS ORDERED: SODIUM CHLORIDE 0.9% 1,000 ML with MVI, ADULT NO.4 WITH VIT K 10 ML, THIAMINE 100 MG, F... IV ONE ×4 (16:35)
[2020-03-06] MEDS: THIAMINE 100 MG TAB PO SCH (17:11)
[2020-03-06] MEDS ORDERED: clonazePAM 0.5 MG TAB PO PRN (21:11)
[2020-03-06] MEDS ORDERED: TEMAZEPAM 15 MG CAP PO PRN (21:13)
[2020-03-06] MEDS ORDERED: HYDROcodone/APAP 5-325MG 1 EACH TAB PO PRN (21:13)
[2020-03-06] MEDS ORDERED: HYDROmorphone 0.5 MG/0.5 ML SYRINGE IVP PRN (21:13)
[2020-03-06] MEDS: IOPAMIDOL CONTRAST (ORAL USE) VIAL PO PRN ×2 (21:43→22:49)
--- NOTE | 2020-03-06 21:56 | HP ---
HISTORY AND PHYSICAL DATE OF SERVICE: 03/06/2020 CHIEF COMPLAINTS: Chest pain and alcohol intoxication. HISTORY OF PRESENT ILLNESS: This 39-year-old gentleman with a past medical history of multiple medical problems including COPD, GERD, seizure disorder, history of alcoholism, history of colitis, anxiety, bipolar depression, was admitted with history of chest pain. The patient also found to have significant alcohol intoxication. Patient is confused. The patient apparently took more than a fifth of alcohol and the patient came to [facility] and was admitted to the hospital for further evaluation and treatment. The patient had apparently has seizures when he goes through withdrawals. There is no history of fever, rigors. No history of headache. A detailed history could not be taken from the patient because of the alcohol intake. Most of the history taken from my discussion with staff and discussion with the ER physician. PAST MEDICAL HISTORY: History of COPD, GERD, seizure disorder, anxiety, bipolar depression. MEDICATIONS: Home medications are: Clonazepam, Suboxone, buspirone, Wellbutrin XL. ALLERGIES: None. FAMILY HISTORY: Family history of COPD in the chart. SOCIAL HISTORY: History of alcohol and smoking. REVIEW OF SYSTEMS: Could not be taken because of above mentioned reason. PHYSICAL EXAMINATION: The patient is arousable, oriented x1. Pulse 104. Blood pressure 90/60, respirations 16, temperature 97.9, pulse ox 94% on room air. HEENT: Conjunctivae normal. NECK: No JVD. CARDIOVASCULAR: S1, S2 muffled. RESPIRATORY: Breath sounds diminished in the bases. Scattered rhonchi and crackles. ABDOMEN: Soft, nontender. LEGS are no edema. No swelling. NERVOUS SYSTEM: No focal deficits. SKIN: No ulcers, rashes or bleeding. JOINTS: No active deforming arthropathy. LYMPHATICS: No lymph nodes palpable in the neck, axillae or groin. LABS: CBC, platelets 85. Sodium 143, potassium 3.5, plasma lactic acid 3.2. Amylase is 184, lipase is 2017. Alcohol is 319. ASSESSMENT: 1. Acute alcohol intoxication. 2. Change in mental status, acute metabolic encephalopathy secondary to alcohol intoxication. 3. Acute pancreatitis. 4. Increased AST, ALT/alcoholic hepatitis. 5. Elevated lactic acid secondary to dehydration, or alcoholism. 6. Thrombocytopenia secondary to alcoholism. 7. Chronic obstructive pulmonary disease. 8. Gastroesophageal reflux disease. 9. Seizure disorder. 10.History of DTs. 11.Anxiety, bipolar depression, bipolar. 12.History of nicotine dependence. 13.FULL CODE. RECOMMENDATIONS AND DISCUSSION: In this 39-year-old gentleman who presented with multiple complex medical issues, we will monitor the patient closely, continue the current medications, symptomatic treatment. CIWA protocol. Watch for alcohol withdrawal seizures. Otherwise, continue to monitor. Resume the home medications. DVT prophylaxis. I would also repeat amylase, lipase and I would also recommend a CT scan of the abdomen and pelvis for completing evaluations. Prognosis guarded. Further recommendations to follow. Discussed with the patient. MMODL / IJN: [id number] /
[2020-03-07] MEDS: LORazepam 2 MG/ML INJ IV PRN ×3 (01:12→09:52)
[2020-03-07 06:16] LABS: Basophils # (A) 0.1 k/uL (0-0.2); Basophils % (A) 2 %; Eosinophils % (A) 1 %; HCT 38.8 % (39.0-53.0); Hypochromasia Slight; Lymphocytes # (A) 0.8 k/uL (1.0-4.8); Lymphocytes % (A) 21 %; MCH 30.8 pg (25.0-35.0); MCHC 31.5 g/dL (31.0-37.0); MCV 97.8 fL (80.0-100.0); Mean Platelet Volume 9.1; Monocytes # (A) 0.2 k/uL (0-1.0); Monocytes % (A) 4 %; Neutrophils # (A) 2.8 k/uL (1.3-7.7); Neutrophils % (A) 71 %; RBC 3.96 m/uL (4.30-5.90); RDW 12.5 % (11.5-15.5); WBC 3.9 k/uL (3.8-10.6)
[2020-03-07 06:17] LABS: Platelet Count 60 k/uL (150-450)
[2020-03-07 06:19] LABS: HGB 12.2 gm/dL (13.0-17.5)
--- NOTE | 2020-03-07 06:48 | CT ---
EXAMINATION TYPE: CT abdomen pelvis wo con DATE OF EXAM: 03/06/2020 HISTORY: pancreatitis per order. CT DLP: 267.5 mGycm. Automated Exposure Control for Dose Reduction was Utilized. TECHNIQUE: CT scan of the abdomen and pelvis is performed with oral but without IV contrast. COMPARISON: NONE FINDINGS: Within the limitations of a non-contrast study, the following observations are made. LUNG BASES: Trace right pleural effusion. Associated compressive atelectasis. LIVER/GB: Liver is markedly hypodense consistent with diffuse fatty infiltration.. PANCREAS: Pancreas overall normal in size. In the distal body there is 1.6 cm rounded low dense lesio n axial image 41 favoring cyst or cystic lesion. No ductal dilatation. No surrounding inflammatory ch jennifer. SPLEEN: No significant abnormality is seen. ADRENALS: No significant abnormality is seen. KIDNEYS: No renal calculi or hydronephrosis. Mild to moderate distention of bladder in the pelvis. BOWEL: Oral contrast does not reach colonic level. No suspicious small or large bowel dilatation. GENITAL ORGANS: Prostate gland overall normal in size, slight right posterior asymmetry axial image 1 42 noted. Differential includes prostate peripheral nodule versus adherent fecal debris or eccentric colonic wall thickening, possible villous adenoma. Follow-up advised. This measures 11 mm transversel y by 3 mm AP diameter. Occasional scattered pelvic phleboliths. LYMPH NODES: No greater than 1cm abdominal or pelvic lymph nodes are appreciated. OSSEOUS STRUCTURES: No significant abnormality is seen. OTHER: No significant additional abnormality is seen. IMPRESSION: 1. There is 1.6 cm thin-walled cyst or cystic lesion distal body of pancreas, given history of pancre atitis, pancreatic pseudocyst is suspected. Other etiologies not excluded including cystic neoplasm. No current enlargement of the gland or surrounding inflammatory change noted. 2. Diffuse fatty infiltration of liver. 3. Attention to posterior prostatic margin as detailed above. Follow-up advised.
[2020-03-07] MEDS: HEPARIN SODIUM,PORCINE 5,000 UNIT/ML 1 ML VIAL SQ SCH ×2 (07:37→20:35)
[2020-03-07] MEDS ORDERED: NON FORMULARY DRUG (Buprenorphine Hcl/Naloxone Hcl [Suboxone 8 Mg-2 Mg Sl Film] 1 EACH Fil SUBLINGUAL SCH (09:00)
[2020-03-07] MEDS ORDERED: PANTOPRAZOLE 40 MG/10 ML VIAL IV SCH (09:00)
[2020-03-07 09:31] LABS: ALT 76 U/L (10-49); AST 146 U/L (14-35); African American GFR (CKD) 122.5 (60.0-200.0); Albumin/Globulin Ratio 1.42 (1.60-3.17); Alkaline Phosphatase 70 U/L (41-126); Amylase 193 U/L (23-121); BUN/Creat Ratio 27.78 Ratio (12.00-20.00); Calcium 8.8 mg/dL (8.7-10.3); Carbon Dioxide 29.3 mmol/L (21.6-31.8); Chloride 99 mmol/L (96-109); Chol/HDL Ratio 2.43; Cholesterol 153 mg/dL (0-200); Globulin 2.6 g/dL (1.6-3.3); Glucose 100 mg/dL (70-110); Non-African American GFR(CKD) 105.7 (60.0-200.0); Potassium 3.4 mmol/L (3.5-5.5); Sodium 138 mmol/L (135-145); Total Bilirubin 0.4 mg/dL (0.2-1.2); Total Protein 6.3 g/dL (6.2-8.2); Triglycerides <50.0 mg/dL (0.0-149.0)
[2020-03-07] MEDS: busPIRone HCl 5 MG TAB PO SCH ×2 (09:48→20:30)
[2020-03-07] MEDS: buPROPion XL 300 MG TAB.ER.24H PO SCH (09:49)
[2020-03-07] MEDS: THIAMINE 100 MG TAB PO SCH ×2 (09:49→16:08)
[2020-03-07] MEDS: LORazepam 1 MG TAB PO PRN ×6 (11:36→23:33)
[2020-03-07] MEDS ORDERED: Magnesium Replacement Protocol 1 EACH MISC MISCELLANE PRN (14:40)
[2020-03-07] MEDS ORDERED: Potassium Replacement Protocol 1 EACH MISC MISCELLANE PRN (14:40)
[2020-03-08] MEDS: LORazepam 1 MG TAB PO PRN ×5 (01:10→23:05)
[2020-03-08] MEDS: ACETAMINOPHEN TAB 325 MG TAB PO PRN ×2 (04:25→20:09)
[2020-03-08 06:07] LABS: Basophils % (A) 0 %; Eosinophils # (A) 0.1 k/uL (0-0.7); Eosinophils % (A) 2 %; HCT 38.4 % (39.0-53.0); HGB 12.3 gm/dL (13.0-17.5); Lymphocytes # (A) 1.2 k/uL (1.0-4.8); Lymphocytes % (A) 33 %; MCH 30.2 pg (25.0-35.0); MCHC 32.1 g/dL (31.0-37.0); MCV 94.2 fL (80.0-100.0); Mean Platelet Volume 10.3; Monocytes # (A) 0.2 k/uL (0-1.0); Monocytes % (A) 5 %; Neutrophils # (A) 2.2 k/uL (1.3-7.7); Neutrophils % (A) 58 %; Platelet Count 51 k/uL (150-450); RBC 4.08 m/uL (4.30-5.90); RDW 12.7 % (11.5-15.5); WBC 3.7 k/uL (3.8-10.6)
[2020-03-08] MEDS ORDERED: PANTOPRAZOLE 40 MG TABLET PO SCH (07:30)
[2020-03-08] MEDS: busPIRone HCl 5 MG TAB PO SCH ×2 (08:51→20:09)
[2020-03-08] MEDS: THIAMINE 100 MG TAB PO SCH ×2 (08:51→16:04)
[2020-03-08] MEDS: buPROPion XL 300 MG TAB.ER.24H PO SCH (08:51)
[2020-03-08] MEDS: HEPARIN SODIUM,PORCINE 5,000 UNIT/ML 1 ML VIAL SQ SCH ×2 (09:00→20:10)
[2020-03-08 12:00] VITALS: RESP 18
[2020-03-08] MEDS: SODIUM CHLORIDE 0.9% 1,000 ML IV SCH ×2 (12:02→19:15)
--- NOTE | 2020-03-08 12:11 | P.PN ---
Subjective This is a pleasant 39 years old male with past medical history of depression and other medical illnesses, presents with alcohol intoxication, currently undergoing alcohol withdrawal with tremor and hallucination and also has been evaluated for pancreatitis was undergoing abdominal epigastric pain and diarrhea is fully awake and oriented. He does not complain from back pain, no weakness in his lower extremities. No urine incontinence. No nausea vomiting. He has a fever of 100.1. Not showing mild leukopenia with WBCs of 3.7K, hemoglobin 12.3, platelets 50 1K Review of systems CONSTITUTIONAL: No fever, no malaise, no fatigue. HEENT: No recent visual problems or hearing problems. Denied any sore throat. CARDIOVASCULAR: No orthopnea, PND, no palpitations, no syncope. PULMONARY: No shortness of breath, no cough, no hemoptysis. -GASTROINTESTINAL: as above NEUROLOGICAL: No headaches, no weakness, no numbness. HEMATOLOGICAL: Denies any bleeding or petechiae. Active Medications Generic Name Dose Route Start Last Admin Trade Name Freq PRN Reason Stop Dose Admin Acetaminophen 650 mg 03/06/20 12:07 03/08/20 04:25 Acetaminophen Tab 325 Mg Tab PO 650 mg Q6HR PRN Administration Mild Pain or Fever > 100.5 Hydrocodone Bitart/Acetaminophen 1 each 03/06/20 21:13 Hydrocodone/Apap 5-325mg 1 Each Tab PO Q6HR PRN Moderate Pain Bupropion HCl 300 mg 03/07/20 09:00 03/08/20 08:51 Bupropion Xl 300 Mg Tab.Er.24h PO 300 mg DAILY UMA Administration Buspirone HCl 15 mg 03/07/20 09:00 03/08/20 08:51 Buspirone Hcl 5 Mg Tab PO 15 mg BID UMA Administration Clonazepam 0.25 mg 03/06/20 21:11 03/08/20 02:56 Clonazepam 0.5 Mg Tab PO 0.25 mg DAILY PRN Administration Anxiety Heparin Sodium (Porcine) 5,000 unit 03/07/20 09:00 03/08/20 09:00 Heparin Sodium,Porcine 5,000 Unit/Ml 1 Ml Vial SQ Not Given Q12HR UMA Hydromorphone HCl 0.5 mg 03/06/20 21:13 Hydromorphone 0.5 Mg/0.5 Ml Syringe IVP Q6HR PRN Severe Pain Sodium Chloride 1,000 mls @ 150 mls/hr 03/08/20 12:00 03/08/20 12:02 Saline 0.9% IV 150 mls/hr .Q6H40M UMA Administration Ceftriaxone Sodium 1 gm/ 50 mls @ 100 mls/hr 03/08/20 12:15 Sodium Chloride IVPB Q24HR UMA Metronidazole 500 mg/ IV 100 mls @ 100 mls/hr 03/08/20 12:07 Solution IVPB Q8HR UMA Lorazepam 1 mg 03/06/20 10:31 03/07/20 09:52 Lorazepam 2 Mg/Ml Inj IV 1 mg Q2HR PRN Administration CIWA 8 or 9 Lorazepam 1 mg 03/06/20 10:31 03/06/20 15:34 Lorazepam 2 Mg/Ml Inj IV 1 mg Q1HR PRN Administration CIWA 10 to 15 Lorazepam 1 mg 03/07/20 11:25 03/08/20 08:51 Lorazepam 1 Mg Tab PO 1 mg Q1HR PRN Administration Alcohol Withdrawal Miscellaneous Information 1 each 03/07/20 14:40 Magnesium Replacement Protocol 1 Each Misc MISCELLANE DAILY PRN Per Protocol Protocol Miscellaneous Information 1 each 03/07/20 14:40 Potassium Replacement Protocol 1 Each Misc MISCELLANE DAILY PRN Per Protocol Protocol Naloxone HCl 0.2 mg 03/06/20 12:07 Naloxone 0.4 Mg/Ml 1 Ml Vial IV Q2M PRN Opioid Reversal Ondansetron HCl 4 mg 03/06/20 12:07 03/06/20 21:47 Ondansetron 4 Mg/2 Ml Vial IVP 4 mg Q8HR PRN Administration Nausea And Vomiting Pantoprazole Sodium 40 mg 03/08/20 07:30 03/08/20 08:51 Pantoprazole 40 Mg Tablet PO 40 mg [id number] UMA Administration Temazepam 15 mg 03/06/20 21:13 Temazepam 15 Mg Cap PO HS PRN Insomnia Thiamine HCl 100 mg 03/06/20 17:30 03/08/20 08:51 Thiamine 100 Mg Tab PO 100 mg BID-W/MEALS UMA Administration Objective - Vital Signs Vital signs: Vital Signs Temp 99.0 F 03/08/20 11:53 Pulse 61 03/08/20 11:53 Resp 18 03/08/20 11:53 BP 111/68 03/08/20 11:53 Pulse Ox 96 03/08/20 11:53 Intake & Output 03/07/20 03/08/20 03/08/20 18:59 06:59 18:59 Intake Total 720 1180 Balance 720 1180 Intake: Intake, IV Titration 480 Amount Sodium Chloride 0.9% 1, 480 000 ml @ 60 mls/hr IV . [id number] ONE with Mvi, Adult No.4 with Vit K 10 ml with Thiamine 100 mg with Folic Acid 1 mg Rx#: [id number] Oral 240 1180 Other: Voiding Method Toilet Toilet # Voids 5 1 - Exam GENERAL: The patient is alert and oriented x3, not in any acute distress. Generally weak HEENT: Pupils are round and equally reacting to light. EOMI. No scleral icterus. No conjunctival pallor. Normocephalic, atraumatic. No pharyngeal erythema. No thyromegaly. CARDIOVASCULAR: S1 and S2 present. No murmurs, rubs, or gallops. PULMONARY: Chest is clear to auscultation, no wheezing or crackles. -ABDOMEN: Soft, epigastric tenderness with no rebound tenderness or guarding, nondistended, normoactive bowel sounds. No palpable organomegaly. MUSCULOSKELETAL: No joint swelling or deformity. EXTREMITIES: No cyanosis, clubbing, or pedal edema. -NEUROLOGICAL: Gross neurological examination did not reveal any focal deficits. Had a tremor SKIN: No rashes. no petechiae. - Labs CBC & Chem 7: 03/08/20 05:54 03/07/20 05:58 Labs: Abnormal Lab Results - Last 24 Hours (Table) 03/08/20 Range/Units 05:54 WBC 3.7 L (3.8-10.6) k/uL RBC 4.08 L (4.30-5.90) m/uL Hgb 12.3 L (13.0-17.5) gm/dL Hct 38.4 L (39.0-53.0) % Plt Count 51 L (150-450) k/uL Assessment and Plan Assessment: Low-grade fever, rule out pneumonia versus other infection, possible acute gastroenteritis Alcohol intoxication on the presentation Alcohol withdrawal with delirium tremens Acute pancreatitis Anxiety and depression Nicotine dependence COPD, acute exacerbation History of seizure disorder, not in acute issue Plan: This is a pleasant 39 years old male who presents with alcohol intoxication withdrawal. Fever possible gastroenteritis. Pancreatitis. Start the patient on antibiotics with ceftriaxone and Flagyl. Send stool culture and sensitivity and C. difficile. Check for pro-calcitonin. Check chest x-ray, I agree with IV fluids by GI team Consult psychiatrist. Labs and medication were reviewed.. Continue same treatment. Continue with symptomatic treatment. Resume home medication. Monitor lytes and vitals. DVT and GI prophylaxis. Further recommendationsas per clinical course of the patient DVT prophylaxis: Subcutaneous heparin GI Prophylaxis: ppi Prognosis is guarded
--- NOTE | 2020-03-08 12:29 | XR ---
EXAMINATION TYPE: XR chest 2V DATE OF EXAM: 03/08/2020 COMPARISON: Prior chest x-ray 03/06/2020 HISTORY: Leukocytosis TECHNIQUE: Frontal and lateral views of the chest are obtained. FINDINGS: There is no focal air space opacity, pleural effusion, or pneumothorax seen. The cardiac silhouette size is within normal limits. The osseous structures are intact. IMPRESSION: No acute cardiopulmonary process.
[2020-03-08] MEDS: metroNIDAZOLE-NS PMX 500 MG in SALINE 1 100ML.BAG IVPB SCH ×2 (13:07→19:15)
[2020-03-08 13:47] LABS: African American GFR (CKD) >90 (>60 ml/min/1.73 sqM); Anion Gap 11 mmol/L; Blood Urea Nitrogen 17 mg/dL (9-20); Calcium 8.7 mg/dL (8.4-10.2); Carbon Dioxide 20 mmol/L (22-30); Chloride 103 mmol/L (98-107); Glucose 69 mg/dL (74-99); Non-African American GFR(CKD) >90 (>60 ml/min/1.73 sqM); Potassium 3.3 mmol/L (3.5-5.1); Sodium 134 mmol/L (137-145)
--- NOTE | 2020-03-08 14:07 | P.CN ---
Psychiatric Consult - . 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 HPI: Patient presented to the hospital yesterday with the complaints of relapse on drinking alcohol and chest pain, nausea and memory impairment. Patient claims that he is brought in by his . According to ER report patient stated that he had been increasing his drinking for the past several weeks and has been drinking approximately 2 pints a day as poor food intake. Patient does have a history of withdrawal seizures from alcohol and severe withdrawal symptoms. He has an extensive alcohol abuse history and has been to rehab several times. Patient also has been admitted to the psychiatric unit several times in the past. Patient's last drink was prior to coming in the hospital. Patient's blood alcohol level was 399 on admission. Patient's AST and ALT were elevated and UDS is negative for any drugs. Patient was seen at the bedside and appeared to be quiet and withdrawn. Patient was trembling and states that he is currently going through alcohol withdrawal. Patient was asking for Ativan. He states that he has been drinking heavily for the past month or so approximately a fifth of vodka a day. He states that she would be interested in going to rehab and claims that he is "going downhill". He claims that he was previously at [place] however, remember the date. He states that his sleep is poor and appetite is poor. He claims that at this time he feels "numb". Patient denies any suicidal or homicidal ideations intent or plan. At this time patient denies any auditory or visual hallucinations. Patient denies any flight of ideas racing thoughts and increased in goal directed behavior. Drinks alcohol as stated above. Patient denies any other recreational drug use and admits to smoking cigarettes 1 pack per day. PAST PSYCHIATRIC HISTORY: Patient states that he has a history of depression and anxiety and polysubstance use. Patient has been hospitalized in psychiatric units many times and was last admitted to the mental health floor in March 2019. Patient is open with [facility] however claims that he has not been going to his appointments. Patient has been on multiple antidepressants and benzodiazepines in the past and has a history of manipulation and drug seeking behaviors. Patient denies any previous history of suicide attempts PMH: COPD, GERD, seizures ALLERGIES: as per EMR CHEMICAL DEPENDENCY HISTORY: as per HPI FAMILY PSYCHIATRIC/SUBSTANCE USE HISTORY: denies SOCIAL HISTORY: He states that he was born and raised in [place] on and also in [place]. Patient currently lives in [place] with his father in a house. Patient graduated from high school. 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 Patient has one daughter who is 8 years old. MENTAL STATUS EXAM: General Appearance: Patient appears to be older than stated age is alert, attem pts to be and disheveled. Shaking/tremor in his hands. Behavior: Patient is calmly seated without any agitated behavior. Attempts to be cooperative. Speech: Patient's speech is fluent and nonpressured. Trembling voice. Mood/Affect: Patient reports their mood is "numb" denies any depression or anxiety today, affect is congruent Suicidality/Homicidality: Patient denies having any suicidal or homicidal ideation intent or plan. Perceptions: Patient denies any auditory or visual hallucinations. Thought content/process: There is no evidence of any delusional thought content, patient is preoccupied with medications including controlled substances. Memory and concentration: AOX1-2, and that he does not know today's date, grossly intact for the purposes of this session. Cannot spell "WORLD" backwards Judgment and insight: poor/superficial IMPRESSIONS: History of depressive disorder Anxiety disorder unspecified Alcohol abuse, currently in withdrawal Nicotine dependence Personality disorder unspecified likely cluster B PLAN: -At this time patient DOES NOT meet criteria for inpatient psychiatric admission currently however will continue to follow patient while on the medical floor to see if he requires inpatient psychiatric hospitalization. -Would recommend the following medication changes/additions: Started scheduled Librium 25 mg 3 times a day for alcohol withdrawal. Continue with [facility] protocol with when necessary Ativan. Discontinued Wellbutrin due to decreasing seizure threshold. Patient is agreeable to start Zoloft instead 50 mg daily. Started trazodone 50 mg daily at bedtime for insomnia/mood. Discontinued Restoril and clonazepam. -Fiberglass Product Tester spoke with patient about substance abuse and the harmful effects on medical and mental health, patient verbally understood and agreed. -wash worker to provide patient substance use treatment resources including AA/NA meetings in the community. Patient claims that he is interested in going back to [facility]. wash worker to provide patient with access line number to call for inpatient substance rehab -Will continue to follow along -Please contact with any questions. 03/08/20 13:38 03/08/20 13:58
[2020-03-08 15:31] LABS: African American GFR (CKD) 128.6 (60.0-200.0); Albumin 3.8 g/dL (3.80-4.90); Albumin/Globulin Ratio 1.52 (1.60-3.17); Anion Gap 14.4 mmol/L (4.00-12.00); BUN/Creat Ratio 22.5 Ratio (12.00-20.00); Calcium 8.7 mg/dL (8.7-10.3); Carbon Dioxide 21.6 mmol/L (21.6-31.8); Globulin 2.5 g/dL (1.6-3.3); Magnesium 1.4 mg/dL (1.5-2.4); Potassium 3.9 mmol/L (3.5-5.5); Total Bilirubin 0.4 mg/dL (0.3-1.2); Total Protein 6.3 g/dL (6.2-8.2)
[2020-03-08] MEDS: chlordiazePOXIDE 25 MG CAP PO SCH ×2 (16:04→22:41)
--- NOTE | 2020-03-08 17:15 | CONS ---
CONSULTATION DATE OF SERVICE: 03/08/2020 REQUESTING PHYSICIAN: Dr. Rahman. REASON FOR CONSULTATION: Acute pancreatitis. HISTORY OF PRESENT ILLNESS: The patient is a 39-year-old white male with history of heavy alcohol abuse, history of GERD, seizure disorder, admitted to the hospital with severe epigastric pain and chest pain for the last 3 day's duration. The pain continued to progressively get worse. Had some nausea, vomiting, came to the emergency room and was noted to have elevated lipase consistent with acute pancreatitis. The patient has history of heavy alcohol abuse and he drinks about 2 pint a day for many years. He never had acute pancreatitis in the past. This morning he continues to complain of epigastric pain but the nausea, vomiting has resolved. No fever, chills, night sweats. He never had these symptoms before. PAST MEDICAL HISTORY: Significant for heavy alcohol abuse, COPD, GERD, seizure disorder, history of anxiety, depression. MEDICATIONS: At home include Suboxone, buspirone, Wellbutrin. ALLERGIES: None. SOCIAL HISTORY: Heavy alcohol abuse, chronic smoker. FAMILY HISTORY: Unremarkable. REVIEW OF SYSTEMS: CARDIOPULMONARY: He denies any chest pain or shortness of breath. GENITOURINARY: No dysuria, hematuria. MUSCULOSKELETAL: Unremarkable. SKIN: Unremarkable. ENDOCRINE: Unremarkable. PSYCHIATRIC: Unremarkable, other than anxiety depression. NEUROLOGY: Unremarkable. ENT/VISION: Unremarkable. CONSTITUTIONAL: No fevers, chills or night sweats. No recent weight loss. GI: As mentioned above. MEDICATIONS AT HOME: Lorazepam, Suboxone, buspirone and bupropion. PHYSICAL EXAMINATION: He appears comfortable, in no apparent distress. Vital signs are stable, blood pressure is 111/68, pulse is 61, temperature 98. HEENT: Examination unremarkable, conjunctivae are pink, sclerae nonicteric, oral cavity no lesions. NECK: No JVD or lymph node enlargement. Chest: Clear to auscultation. HEART: Regular rate and rhythm. ABDOMEN: Soft, there was tenderness in the epigastric area. Mild tenderness in the left upper quadrant area. Rest of the abdomen was benign. Bowel sounds are positive, no organomegaly. EXTREMITIES: No pedal edema. SKIN: No rashes. NEURO: He is alert and oriented x3. No focal deficits. LABS: WBC 4.2, hemoglobin 15.4, platelets 85,000. Today WBC 70.7, hemoglobin 12.3, and platelets are 51,000. PT, INR are within normal limits. ALT, AST are 308 and 124 respectively at admission, yesterday they are down to 146 and 76 respectively. T- bilirubin and alkaline phosphatase are within normal limits. Lipase was 2017 and yesterday it was 508. Serum alcohol level was 399. IMPRESSION: 1. This patient presented to the hospital with epigastric pain associated with nausea, vomiting for the last 3 day's duration and noted to have elevated lipase, all consistent with chronic relapsing pancreatitis secondary to alcohol abuse. He did have a CT of the abdomen done at the time of admission to the hospital that showed a 1.9 cm cystic lesion in the distal body of the pancreas consistent with pseudocyst. 2. Nausea and vomiting secondary to chronic pancreatitis. 3. Pancreatic lesion, possibly a pseudocyst. 4. History of heavy alcohol abuse. 5. History of alcoholic intoxication. 6. History of anxiety, depression. RECOMMENDATION: 1. Will change to a full liquid diet today. 2. Pain medications as needed. 3. Abstinence from alcohol. 4. Repeat labs in the morning. 5. Will follow with you closely. Thank you for this consultation. MMODL / IJN: [id number] /
[2020-03-08 20:49] VITALS: BP 100/55; TEMP 98.5
[2020-03-08] MEDS ORDERED: traZODone HCL 50 MG TAB PO SCH (21:00)
[2020-03-08 23:16] VITALS: PULSE 48
[2020-03-09] MEDS: LORazepam 1 MG TAB PO PRN (00:59)
[2020-03-09] MEDS: SODIUM CHLORIDE 0.9% 1,000 ML IV SCH (00:59)
[2020-03-09] MEDS: metroNIDAZOLE-NS PMX 500 MG in SALINE 1 100ML.BAG IVPB SCH (04:26)
--- NOTE | 2020-03-09 06:46 | P.DS ---
Providers Date of admission: 03/08/20 14:51 Attending physician: Lisa Rahman Consults: 03/07/20 14:40 Consult Physician Routine Consulting Provider: John Naranjo Consult Reason/Comments: pancreatitis Do you want consulting provider notified?: Yes 03/08/20 12:05 Consult Physician Urgent Consulting Provider: Nitin Jain Consult Reason/Comments: depression and alcholism Do you want consulting provider notified?: Yes Primary care physician: Stated None Hospital Course: Please note that patient was not discharged but he left AGAINST MEDICAL ADVICE Diagnoses: Low-grade fever, rule out pneumonia versus other infection, possible acute gastroenteritis Alcohol intoxication on the presentation Alcohol withdrawal with delirium tremens. Patient has tremor with hallucination but he is fully awake and oriented to time place and person Acute pancreatitis Anxiety and depression, evaluated by psychiatrist, no need for inpatient psychiatric admission Nicotine dependence COPD, acute exacerbation History of seizure disorder, not in acute issue Hospital course: This is a pleasant 39 years old male with past medical history of depression and other medical illnesses, presents with alcohol intoxication, currently undergoing alcohol withdrawal with tremor and hallucination and also has been evaluated for pancreatitis was undergoing abdominal epigastric pain and diarrhea is fully awake and oriented. He is oriented to the surrounding. And based upon my evaluation patient has capacity to make medical decisions. Besides patient has been evaluated by psychiatric service put him on Librium on the top office as needed Ativan and they found him does not meet criteria for inpatient psychiatric admission. Patient upon my evaluation also he was not suicidal. Patient was started on antibiotic for low-grade fever. Stool studies were sent. However this morning when I came to see the patient he was already left AGAINST MEDICAL ADVICE. Risks are explained to the patient by staff Missed upon my evaluation patient has capacity to make medical decision Patient Condition at Discharge: Stable Plan - Discharge Summary Discharge Rx Participant: No New Discharge Prescriptions: No Action clonazePAM 0.25 mg PO DAILY PRN PRN Reason: Anxiety busPIRone HCL 15 mg PO BID buPROPion XL [Wellbutrin Xl] 300 mg PO DAILY Buprenorphine HCl/Naloxone HCl [Suboxone 8 mg-2 mg Sl Film] 1 film SL BID Discharge Medication List Buprenorphine HCl/Naloxone HCl [Suboxone 8 mg-2 mg Sl Film] 1 film SL BID 03/06/20 [History] buPROPion XL [Wellbutrin Xl] 300 mg PO DAILY 03/06/20 [History] busPIRone HCL 15 mg PO BID 03/06/20 [History] clonazePAM 0.25 mg PO DAILY PRN 03/06/20 [History] Follow up Appointment(s)/Referral(s): None,Stated [Primary Care Provider] - 1-2 days Discharge Disposition: Left Against Medical Advice
[2020-03-09] MEDS ORDERED: SERTRALINE 50 MG TAB PO SCH (09:00)
--- NOTE | 2020-03-09 09:16 | PN ---
PROGRESS NOTE DATE OF SERVICE: 03/07/2020. HISTORY: This 39-year-old gentleman was admitted with alcohol intoxication, chest pain, also requesting more Ativan. At this time patient is going through tremors and active DTs at this time. No chest pain. No palpitations. No fever. Abdominal pelvis CAT scan was done yesterday which showed a cystic lesion in the body of the pancreas. Pancreatic pseudocyst is suspected. The patient also had features of acute pancreatitis, present on admission. Diffuse fatty infiltration of the liver was also noted. PAST MEDICAL HISTORY: Reviewed. REVIEW OF SYSTEMS: CARDIOVASCULAR SYSTEM: As mentioned earlier. RESPIRATORY: As mentioned earlier. GI: As mentioned earlier. : As mentioned. 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 CURRENT MEDICATIONS: Tylenol, Vardaman, Wellbutrin, BuSpar, Klonopin, Heparin, Dilaudid, Ativan, Narcan, Zofran, Protonix, Restoril, vitamin B1. PHYSICAL EXAM: Patient is alert oriented x3. Pulse 96, blood pressure 100/69, respiration 17, temperature 99.4, pulse ox 94% on room air. HEENT: Conjunctivae normal. Skin is normal. NECK: No JVD. LUNGS: Breath sounds diminished at bases. Few scattered rhonchi and crackles. ABDOMEN: Soft, mild diffuse tenderness in the epigastrium. No mass palpable. LEGS: No cyanosis. NERVOUS SYSTEM: No focal deficits. LABS: WBC 3.2, hemoglobin 12.2, potassium 3.4, amylase 193, lipase is 508. Lipid panel not noted. ASSESSMENT: 1. Acute alcohol intoxication. 2. Acute alcohol withdrawals and acute delirium tremens. 3. Abdominal pain with acute pancreatitis. 4. Pancreatic pseudocyst. 5. Change in mental status, metabolic encephalopathy, acute secondary to alcohol intake. 6. Increased AST, ALT, alcoholic hepatitis. 7. Increased lactic acid possibly secondary dehydration and alcoholism. 8. Thrombocytopenia secondary to alcoholism. 9. COPD. 10.GERD. 11.Seizure disorder. 12.History of DTs. 13.Anxiety bipolar depression. 14.History of nicotine dependence. 15.FULL CODE. RECOMMENDATIONS AND DISCUSSION: I recommend to continue current medications, management and treatment. Otherwise at this time I recommend repeat labs, amylase, lipase. CT scan of the abdomen reviewed. We will also obtain a gastroenterology consultation to complete workup. Prognosis guarded. Further recommendations to follow. MMODL / IJN: [id number] /
== END 2020-03-09 04:45 | disposition left against medical advice (07) | DRG 438 ==
LOC: EC 09:59 → 6NMEDSUR 12:13 → OBSVTOIN 03-08 14:51 → 6NMEDSUR 03-08 16:39
PROVIDERS: ADMIT Hospitalist; ATTEND Hospitalist
DX: K85.20 Alcohol induced acute pancreatitis without necrosis or infection (principal); G93.41 Metabolic encephalopathy; J18.9 Pneumonia, unspecified organism; K86.3 Pseudocyst of pancreas; F10.231 Alcohol dependence with withdrawal delirium; J44.1 Chronic obstructive pulmonary disease with (acute) exacerbation; E87.2 Acidosis; K86.0 Alcohol-induced chronic pancreatitis; F10.229 Alcohol dependence with intoxication, unspecified; Y90.8 Blood alcohol level of 240 mg/100 ml or more; D69.59 Other secondary thrombocytopenia; E86.0 Dehydration; F17.210 Nicotine dependence, cigarettes, uncomplicated; F31.9 Bipolar disorder, unspecified; F41.9 Anxiety disorder, unspecified; G40.909 Epilepsy, unspecified, not intractable, without status epilepticus; K21.9 Gastro-esophageal reflux disease without esophagitis; K70.10 Alcoholic hepatitis without ascites; K76.0 Fatty (change of) liver, not elsewhere classified; M41.9 Scoliosis, unspecified; Z82.5 Family history of asthma and other chronic lower respiratory diseases; Z81.3 Family history of other psychoactive substance abuse and dependence
CPT/HCPCS: 36415; 70450; 71046; 74176; 80048; 80053; 80061; 80306; 80320; 81001; 82150; 83605; 83630; 83690; 83735; 84145; 84484; 85025; 85610; 85730; 87045; 87046; 87324; 93005; 96361; 96372; 96374; 96375; 99285

== ENCOUNTER → 2020-04-21 | Outpatient (CLI) | payer OTHER ==
--- NOTE | 2020-04-22 10:38 | MM ---
Reason for exam: additional evaluation requested from abnormal screening. Physical Findings: Nurse Summary: 1.5cm nodule in the right retroareolar breast (nurse db). MG Diagnostic Mammo w CAD [place] Bilateral CC and MLO view(s) were taken. There are scattered fibroglandular densities. Asymmetric breast tissue. These results were verbally communicated with the patient and result sheet given to the patient on 04/21/20. ASSESSMENT: Incomplete: need additional imaging evaluation, BI-RAD 0 RECOMMENDATION: Ultrasound of the right breast.
--- NOTE | 2020-04-22 10:39 | USB ---
Reason for exam: clinical finding. US Breast Limited BILAT Right limited breast ultrasound including focal area of concern, retroareolar and axilla demonstrates a 2.5 x 0.9cm solid, hypoechoic lesion at the posterior nipple. Left limited breast ultrasound including focal area of concern, retroareolar and axilla demonstrates no cystic or solid lesion seen. These results were verbally communicated with the patient and result sheet given to the patient on 04/21/20. ASSESSMENT: Probably benign, BI-RAD 3 RECOMMENDATION: Ultrasound of the right breast in 6 months. Manage patient on a clinical basis.
== END | disposition home or self-care (01) ==
LOC: RADMAMWWP 13:57
PROVIDERS: ATTEND Internal Medicine
DX: N63.41 Unspecified lump in right breast, subareolar (principal); R92.8 Other abnormal and inconclusive findings on diagnostic imaging of breast
CPT/HCPCS: 77066

== ENCOUNTER 2020-06-26 09:02 | Inpatient (IN) | payer OTHER ==
[2020-06-26] MEDS ORDERED: SODIUM CHLORIDE 0.9% 1,000 ML IV STA (09:23)
--- NOTE | 2020-06-26 09:51 | ED ---
Alcohol HPI - General Chief Complaint: Alcohol Stated Complaint: ETOH Time Seen by Provider: 06/26/20 09:13 Source: EMS Mode of arrival: EMS - History of Present Illness Initial Comments: Patient is a 40-year-old male with history of alcohol abuse, presenting to the emergency department via EMS for alcohol intoxication. Patient's father called police after patient was being aggressive towards him. He already has a PPO against the patient. Patient states he has been drinking since last night. Patient was found laying in his own feces. Patient is not being cooperative, n ot answering all the questions. He has no complaints at this time. He denies any recent fever or chills. Denies any suicidal or homicidal thoughts. He is unwilling to answer any other questions. He does have a history of seizures from withdraws. Upon arrival to the ER his vital signs are stable. - Related Data Home Medications Medication Instructions Recorded Confirmed Buprenorphine HCl/Naloxone HCl 1 film SL BID PRN 03/06/20 06/26/20 [Suboxone 8 mg-2 mg Sl Film] buPROPion XL [Wellbutrin Xl] 300 mg PO DAILY 03/06/20 06/26/20 busPIRone HCL 15 mg PO BID 03/06/20 06/26/20 clonazePAM 0.5 mg PO HS PRN 03/06/20 06/26/20 Albuterol Sulfate [Proair Hfa] 2 puff INHALATION RT-QID PRN 06/26/20 06/26/20 Ibuprofen [Motrin] 800 mg PO Q8H PRN 06/26/20 06/26/20 Ipratropium [place] [Atrovent Hfa] 2 puff INHALATION RT-QID 06/26/20 06/26/20 Loratadine [Claritin] 10 mg PO DAILY 06/26/20 06/26/20 Omeprazole 40 mg PO BID 06/26/20 06/26/20 traZODone HCL [Desyrel] 50 mg PO HS 06/26/20 06/26/20 Allergies Allergy/AdvReac Type Severity Reaction Status Date / Time No Known Allergies Allergy Verified 06/26/20 10:42 Review of Systems ROS Statement: Those systems with pertinent positive or pertinent negative responses have been documented in the HPI. ROS Other: All systems not noted in ROS Statement are negative. Past Medical History Past Medical History: COPD, GERD/Reflux, Seizure Disorder Additional Past Medical History / Comment(s): Alcoholism , pt has scoliosis as a child History of Any Multi-Drug Resistant Organisms: None Reported Past Surgical History: No Surgical Hx Reported Additional Past Surgical History / Comment(s): Strabismus surgery as a child- Left eye surgery. blind in left eye Past Anesthesia/Blood Transfusion Reactions: No Reported Reaction Past Psychological History: Anxiety, Bipolar, Depression Smoking Status: Current every day smoker Past Alcohol Use History: Abuse, Daily, Heavy Past Drug Use History: None Reported - Past Family History Father Family Medical History: COPD Additional Family Medical History / Comment(s): Father is alive in his 50s with history of COPD. Sister(s) Additional Family Medical History / Comment(s): He has 5 sisters and one has drug abuse issues. Patient does not have any brothers. He has one 5-year-old daughter. Mother History Unknown: Yes Additional Family Medical History / Comment(s): Mother is alive in her 50s with no major medical problems. General Exam - General Exam Comments Initial Comments: GENERAL: Disheveled appearance. Patient is nontoxic and in no acute distress, he does appear intoxicated. HEAD: Atraumatic, normocephalic. EYES: Pupils equal round and reactive to light, extraocular movements intact, sclera anicteric, conjunctiva are normal. Eyelids were unremarkable. ENT: TMs normal, nares patent, oropharynx clear without exudates. Moist mucous membranes. NECK: Normal range of motion, supple without lymphadenopathy or JVD. LUNGS: Unlabored respirations. Breath sounds clear to auscultation bilaterally and equal. No wheezes rales or rhonchi. HEART: Regular rate and rhythm without murmurs, rubs or gallops. ABDOMEN: Soft, nontender, normoactive bowel sounds. No guarding, no rebound. No masses appreciated. : Deferred MUSCULOSKELETAL: Normal extremities with adequate strength and normal range of motion, no pitting or edema. No clubbing or cyanosis. NEUROLOGICAL: Patient is alert and oriented x 3. Motor and sensory are also intact. Cranial nerves II through XII grossly intact. Symmetrical smile. Normal speech. PSYCH: Intoxicated, not cooperating.. SKIN: Warm, Dry, normal turgor, no rashes or lesions noted. Course Vital Signs 06/26/20 09:14 Temperature 97.9 F Pulse Rate 94 Respiratory 18 Rate Blood Pressure 98/61 O2 Sat by Pulse 99 Oximetry Medical Decision Making - Medical Decision Making Patient is a 40-year-old male with history of alcohol abuse presenting for alcohol intoxication, mental health exam. His vitals are stable. He does appear intoxicated. BAT is .301. He denies any suicidal or homicidal thoughts at this time. He is unwilling to answer most questions. Blood alcohol is 284, rapid Covid is not detected. He does have history of seizures with withdrawal is. Patient will be admitted to the hospital for alcohol intoxication, mental health exam when patient is sober. Patient accepted by Dr. Rahman. Case discussed with Dr. Rolon. - Lab Data Result diagrams: 06/26/20 10:05 06/26/20 10:05 Lab Results 06/26/20 06/26/20 06/26/20 Range/Units 10:05 10:05 10:05 WBC 2.7 L (3.8-10.6) k/uL RBC 4.41 (4.30-5.90) m/uL Hgb 12.8 L (13.0-17.5) gm/dL Hct 39.3 (39.0-53.0) % MCV 89.0 (80.0-100.0) fL MCH 29.1 (25.0-35.0) pg MCHC 32.7 (31.0-37.0) g/dL RDW 17.7 H (11.5-15.5) % Plt Count 40 L (150-450) k/uL MPV 8.9 Neutrophils % 43 % Lymphocytes % 46 % Monocytes % 6 % Eosinophils % 2 % Basophils % 1 % Neutrophils # 1.2 L (1.3-7.7) k/uL Lymphocytes # 1.3 (1.0-4.8) k/uL Monocytes # 0.2 (0-1.0) k/uL Eosinophils # 0.1 (0-0.7) k/uL Basophils # 0.0 (0-0.2) k/uL Manual Slide Review Performed Anisocytosis Slight Sodium 148 H (137-145) mmol/L Potassium 3.9 (3.5-5.1) mmol/L Chloride 108 H (98-107) mmol/L Carbon Dioxide 25 (22-30) mmol/L Anion Gap 15 mmol/L BUN 13 (9-20) mg/dL Creatinine 0.57 L (0.66-1.25) mg/dL Est GFR (CKD-EPI)AfAm >90 (>60 ml/min/1.73 sqM) Est GFR (CKD-EPI)NonAf >90 (>60 ml/min/1.73 sqM) Glucose 100 H (74-99) mg/dL Calcium 8.6 (8.4-10.2) mg/dL Total Bilirubin 0.5 (0.2-1.3) mg/dL AST 341 H (17-59) U/L ALT 147 H (4-49) U/L Alkaline Phosphatase 83 (38-126) U/L Total Protein 7.6 (6.3-8.2) g/dL Albumin 4.1 (3.5-5.0) g/dL Urine Color Yellow Urine Appearance Clear (Clear) Urine pH 7.5 (5.0-8.0) Ur Specific [place] 1.008 (1.001-1.035) Urine Protein 1+ H (Negative) Urine Glucose (UA) Negative (Negative) Urine Ketones Negative (Negative) Urine Blood Negative (Negative) Urine Nitrite Negative (Negative) Urine Bilirubin Negative (Negative) Urine Urobilinogen <2.0 (<2.0) mg/dL Ur Leukocyte Esterase Negative (Negative) Urine RBC <1 (0-5) /hpf Urine WBC 1 (0-5) /hpf Ur Squamous Epith Cells <1 (0-4) /hpf Urine Mucus Rare H (None) /hpf Serum Alcohol 284 H* mg/dL Coronavirus (PCR) (Not Detectd) 06/26/20 Range/Units 10:05 WBC (3.8-10.6) k/uL RBC (4.30-5.90) m/uL Hgb (13.0-17.5) gm/dL Hct (39.0-53.0) % MCV (80.0-100.0) fL MCH (25.0-35.0) pg MCHC (31.0-37.0) g/dL RDW (11.5-15.5) % Plt Count (150-450) k/uL MPV Neutrophils % % Lymphocytes % % Monocytes % % Eosinophils % % Basophils % % Neutrophils # (1.3-7.7) k/uL Lymphocytes # (1.0-4.8) k/uL Monocytes # (0-1.0) k/uL Eosinophils # (0-0.7) k/uL Basophils # (0-0.2) k/uL Manual Slide Review Anisocytosis Sodium (137-145) mmol/L Potassium (3.5-5.1) mmol/L Chloride (98-107) mmol/L Carbon Dioxide (22-30) mmol/L Anion Gap mmol/L BUN (9-20) mg/dL Creatinine (0.66-1.25) mg/dL Est GFR (CKD-EPI)AfAm (>60 ml/min/1.73 sqM) Est GFR (CKD-EPI)NonAf (>60 ml/min/1.73 sqM) Glucose (74-99) mg/dL Calcium (8.4-10.2) mg/dL Total Bilirubin (0.2-1.3) mg/dL AST (17-59) U/L ALT (4-49) U/L Alkaline Phosphatase (38-126) U/L Total Protein (6.3-8.2) g/dL Albumin (3.5-5.0) g/dL Urine Color Urine Appearance (Clear) Urine pH (5.0-8.0) Ur Specific [place] (1.001-1.035) Urine Protein (Negative) Urine Glucose (UA) (Negative) Urine Ketones (Negative) Urine Blood (Negative) Urine Nitrite (Negative) Urine Bilirubin (Negative) Urine Urobilinogen (<2.0) mg/dL Ur Leukocyte Esterase (Negative) Urine RBC (0-5) /hpf Urine WBC (0-5) /hpf Ur Squamous Epith Cells (0-4) /hpf Urine Mucus (None) /hpf Serum Alcohol mg/dL Coronavirus (PCR) Not Detected (Not Detectd) Disposition Clinical Impression: Alcohol intoxication, Depression Disposition: ADMITTED IP TO THIS [facility] Condition: Stable Is patient prescribed a controlled substance at d/c from ED?: No Referrals: Kam Menchaca DO [Primary Care Provider] - 1-2 days Decision Date: 06/26/20 Decision Time: 10:51
[2020-06-26 10:27] LABS: ALT 147 U/L (4-49); AST 341 U/L (17-59); African American GFR (CKD) >90 (>60 ml/min/1.73 sqM); Albumin 4.1 g/dL (3.5-5.0); Alkaline Phosphatase 83 U/L (38-126); Anion Gap 15 mmol/L; Blood Urea Nitrogen 13 mg/dL (9-20); Calcium 8.6 mg/dL (8.4-10.2); Carbon Dioxide 25 mmol/L (22-30); Chloride 108 mmol/L (98-107); Glucose 100 mg/dL (74-99); Non-African American GFR(CKD) >90 (>60 ml/min/1.73 sqM); Potassium 3.9 mmol/L (3.5-5.1); Sodium 148 mmol/L (137-145); Total Bilirubin 0.5 mg/dL (0.2-1.3); Total Protein 7.6 g/dL (6.3-8.2)
[2020-06-26 10:28] LABS: Anisocytosis Slight; Basophils % (A) 1 %; Eosinophils # (A) 0.1 k/uL (0-0.7); Eosinophils % (A) 2 %; HCT 39.3 % (39.0-53.0); HGB 12.8 gm/dL (13.0-17.5); Lymphocytes # (A) 1.3 k/uL (1.0-4.8); Lymphocytes % (A) 46 %; MCH 29.1 pg (25.0-35.0); MCHC 32.7 g/dL (31.0-37.0); Mean Platelet Volume 8.9; Monocytes # (A) 0.2 k/uL (0-1.0); Monocytes % (A) 6 %; Neutrophils # (A) 1.2 k/uL (1.3-7.7); Neutrophils % (A) 43 %; RBC 4.41 m/uL (4.30-5.90); RDW 17.7 % (11.5-15.5); WBC 2.7 k/uL (3.8-10.6)
[2020-06-26 10:30] LABS: Appearance,Urine Clear (Clear); Bilirubin,Urine Negative (Negative); Blood,Urine Negative (Negative); Color,Urine Yellow; Glucose,Urine (UA) Negative (Negative); Ketones,Urine Negative (Negative); Leukocyte Esterase,Urine Negative (Negative); Mucus,Urine Rare /hpf; Nitrite,Urine Negative (Negative); PH, Urine 7.5 (5.0-8.0); Protein,Urine 1+ (Negative); RBC,Urine <1 /hpf (0-5); Specific Gravity,Urine 1.008 (1.001-1.035); Squamous Epithelial Cell,Urine <1 /hpf (0-4); Urobilinogen,Urine <2.0 mg/dL (<2.0); WBC,Urine 1 /hpf (0-5)
[2020-06-26 10:36] LABS: Alcohol 284 mg/dL
[2020-06-26 10:43] LABS: Platelet Count 40 k/uL (150-450)
[2020-06-26] MEDS ORDERED: ONDANSETRON 4 MG/2 ML VIAL IVP PRN (10:46)
[2020-06-26] MEDS ORDERED: NALOXONE 0.4 MG/ML 1 ML VIAL IV PRN (10:46)
[2020-06-26 10:48] LABS: Amphetamine Screen,Urine Not Detected (NotDetected); Barbiturate Screen,Urine Not Detected (NotDetected); Benzodiazepines Screen,Urine Detected (NotDetected); Cocaine Screen,Urine Not Detected (NotDetected); Methadone Screen, Urine Not Detected (NotDetected); Opiate Screen,Urine Not Detected (NotDetected); Oxycodone Screen, Urine Not Detected (NotDetected); Phencyclidine Screen,Urine Not Detected (NotDetected); Tricyclic Antidepressant,Urine Not Detected (NotDetected); Urn Cannabinoid Scrn Not Detected (NotDetected)
[2020-06-26] MEDS ORDERED: LORazepam 2 MG/ML INJ IV PRN (10:48)
[2020-06-26] MEDS ORDERED: THIAMINE 100 MG/ML 2 ML VIAL IM STA (10:48)
[2020-06-26] MEDS: LORazepam 2 MG/ML INJ IV PRN ×6 (11:12→22:07)
[2020-06-26] MEDS: chlordiazePOXIDE 25 MG CAP PO SCH ×3 (12:36→20:08)
[2020-06-26] MEDS ORDERED: PANTOPRAZOLE 40 MG/10 ML VIAL IVP SCH (15:15)
[2020-06-26] MEDS: IPRATROPIUM 0.5 MG/2.5 ML NEBU INHALATION SCH ×2 (15:59→19:32)
[2020-06-26] MEDS: THIAMINE 100 MG TAB PO SCH (16:33)
[2020-06-26] MEDS: SODIUM CHLORIDE 0.9% 1,000 ML IV SCH ×2 (16:33→20:13)
--- NOTE | 2020-06-26 17:08 | HP ---
HISTORY AND PHYSICAL DATE OF SERVICE: 06/26/2020 CHIEF COMPLAINT: Alcohol intoxication. HISTORY OF PRESENT ILLNESS: This is a 40-year-old gentleman with a past medical history of multiple medical problems including COPD, GERD, seizure disorder, history of alcoholism, anxiety, bipolar depression, was admitted with alcohol intoxication. The patient's father called the police and the patient was aggressive and was drinking since last night. The patient was found to soiled himself. The patient was taken to [facility] and admitted for further evaluation. The patient is confused and jittery. The patient has early alcohol withdrawal and delirium tremens. Alcohol level was 284 in ER Covid 19 was negative. The patient was admitted for further evaluation and treatment. There is no history of fever, rigors, chills. No headache, loss of consciousness, seizures at this time. PAST MEDICAL HISTORY: COPD, GERD, seizure disorder, alcoholism, anxiety, bipolar depression. MEDICATIONS ARE: Trazodone, clonazepam, buspirone, Wellbutrin, Claritin, Atrovent, Motrin, ProAir. Doses reviewed. ALLERGIES: None. FAMILY HISTORY: Chronic obstructive pulmonary disease. SOCIAL HISTORY: History of smoking. History of alcohol. REVIEW OF SYSTEMS: ENT: No diminished hearing or vision. CARDIOVASCULAR: No angina. RESPIRATORY: No cough or hemoptysis. GI: No nausea or vomiting. : No dysuria. NERVOUS SYSTEM: As mentioned earlier. ALLERGY/IMMUNOLOGY: No asthma or hayfever. MUSCULOSKELETAL: As mentioned earlier. HEMATOLOGY: No history of anemia. ENDOCRINE: No history of diabetes or hypothyroidism. CONSTITUTIONAL: As mentioned earlier. DERMATOLOGY: Negative. RHEUMATOLOGY: Negative. PSYCHIATRY: As mentioned earlier. PHYSICAL EXAMINATION: GENERAL: Alert and x2. VITAL SIGNS: Pulse 87, blood pressure 101/60, respirations 16, temperature 98.2, pulse ox 97% on room air. HEENT: Conjunctivae normal. Oral mucosa moist. NECK: No jugular venous distention. No carotid bruits. No lymph node enlargement. RESPIRATORY: Breath sounds diminished at the bases. A few scattered rhonchi and crackles. HEART: S1 and S2, muffled. ABDOMEN: Soft, no tenderness. No masses palpable. EXTREMITIES: No edema, no swelling. NERVOUS: Higher functions as mentioned earlier. Moves all four limbs. No focal motor or sensory deficits. LYMPHATICS: No lymph nodes palpable in the neck or axillae. SKIN: No rashes. JOINTS: No active deforming arthropathy. LABS: WBC 2.2, hemoglobin 12.8, platelets of . Sodium 148. ASSESSMENT: 1. Acute alcohol intoxication, acute alcohol withdrawal. 2. Change in mental status acute metabolic encephalopathy, multifactorial. 3. Acute early delirium tremens. 4. Leukopenia. 5. Anemia. 6. Thrombocytopenia. 7. Mild pancytopenia. 8. Increased sodium with hypernatremia. 9. Elevated AST, ALT, alcoholic hepatitis. 10.History of chronic obstructive pulmonary disease. 11.Gastroesophageal reflux disease. 12.History of seizure disorder. 13.History of scoliosis as a child. 14.History of anxiety and bipolar depression. 15.History of nicotine dependence. 16.FULL CODE. 17.Mild protein calorie malnutrition with body mass index of 18.1. RECOMMENDATIONS AND DISCUSSION: In this 40-year-old gentleman who presented with multiple complex medical issues, at this time I recommend to continue current management and continue symptomatic treatment. [facility] protocol. Psychiatric consultation. Resume the home medications. Supplement vitamins. Prognosis guarded because of multiple complex medical issues. Further recommendations to follow. MMODL / IJN: [id number] / MTDD
[2020-06-26 19:31] LABS: INR 0.9 (<1.2); Prothrombin Time 9.7 sec (9.0-12.0)
[2020-06-26] MEDS: ALBUTEROL NEBULIZED 2.5 MG/3 ML INHALATION PRN (19:32)
[2020-06-26] MEDS: traZODone HCL 50 MG TAB PO SCH (20:08)
[2020-06-26] MEDS: PANTOPRAZOLE 40 MG TABLET PO SCH (20:08)
[2020-06-26] MEDS: busPIRone HCl 5 MG TAB PO SCH (20:08)
[2020-06-27] MEDS: LORazepam 2 MG/ML INJ IV PRN ×9 (00:13→22:06)
[2020-06-27] MEDS: IPRATROPIUM 0.5 MG/2.5 ML NEBU INHALATION SCH ×4 (08:08→19:21)
[2020-06-27] MEDS: chlordiazePOXIDE 25 MG CAP PO SCH ×3 (08:34→20:10)
[2020-06-27] MEDS: PANTOPRAZOLE 40 MG TABLET PO SCH ×2 (08:34→20:10)
[2020-06-27] MEDS: LORATADINE 10 MG TAB PO SCH (08:34)
[2020-06-27] MEDS: THIAMINE 100 MG TAB PO SCH ×2 (08:34→16:23)
[2020-06-27] MEDS: busPIRone HCl 5 MG TAB PO SCH ×2 (08:34→20:10)
[2020-06-27] MEDS: buPROPion XL 300 MG TAB.ER.24H PO SCH (08:34)
[2020-06-27 10:12] LABS: African American GFR (CKD) 134.9 (60.0-200.0); Albumin 3.9 g/dL (3.80-4.90); Albumin/Globulin Ratio 1.44 (1.60-3.17); Anion Gap 8.8 mmol/L (4.00-12.00); BUN/Creat Ratio 14.29 Ratio (12.00-20.00); Calcium 8.6 mg/dL (8.7-10.3); Carbon Dioxide 24.2 mmol/L (21.6-31.8); Globulin 2.7 g/dL (1.6-3.3); Non-African American GFR(CKD) 116.4 (60.0-200.0); Potassium 3.5 mmol/L (3.5-5.5); Total Bilirubin 0.8 mg/dL (0.3-1.2); Total Protein 6.6 g/dL (6.2-8.2)
--- NOTE | 2020-06-27 11:05 | P.CN ---
Psychiatric Consult - . Consult date: 06/27/20 Consult:: IDENTIFYING DATA: He is single 40-year-old male who has history of severe alcohol use disorder and a depressive disorder. His father called EMS [facility], belligerent and agg ressive. HISTORY OF PRESENT ILLNESS: I reviewed the medical record and attempted to interview the patient. He is markedly sedated, dysarthric and had difficulty concentrating and attending to the interview. He complained of alcohol withdrawal symptoms and requested "additional medications". He was unable to provide a coherent history. He mumbled about having an argument with his father. According to the record EMS found him laying in his own feces. He acknowledged that he had been drinking consuming "2 pints of liquor" per day. He was either unaware unable to answer how frequently he d rinks more when he relapsed to alcohol. His blood alcohol level was 284 in the ER. We talked about his alcohol use and alcohol use problems. He is not interested and referral for substance abuse treatment. He described a history of alcohol withdrawal seizures and delirium tremens. PAST PSYCHIATRIC HISTORY: He has had several admissions to our psychiatric unit; the last was in March 2019 when he was charged with a diagnosis of major depressive disorder, anxiety disorder, nicotine dependence and personality disorder. We referred him to [facility] for continued outpatient mental health treatment. He is apparently diagnosed with ADHD and treated with alcohol as an adolescent. PAST MEDICAL HISTORY: See admission history and physical ALLERGIES: Done known drug ALLERGIES SUBSTANCE USE HISTORY: He was unable to provide a coherent substance abuse history. According to the medical record, she began drinking was 15 years old. He said 5 DUIs. He has been admitted to residential substance abuse treatment at least [address] [facility] petitioned probate court for a substance abuse treatment order in March 2019 but the petition was dismissed and June 2019. FAMILY PSYCHIATRIC/SUBSTANCE USE HISTORY: Is a family history of alcohol use problems SOCIAL HISTORY: Was unable to get a coherent social history. According to record he was born and raised in [place]. He currently lives with girlfriend. He is unemployed and receives unemployment income. His father has a slow protective order against him. MENTAL STATUS EXAM: He presented as a disheveled and emaciated appearing 40-year-old male who is laying in bed. He occasionally made eye contact. He had no prominent physical abnormalities. He had a flat facial expression. He is alert to person, place and time. He had marked psychomotor retardation and bilateral fine hand tremor. His speech was not spontaneous and volume was slow with fairly comprehendible. His affect was flat. He denied suicidal ideation or wishes. He did not express feelings of hopelessness or helplessness. No express ideas reference, paranoid ideation or delusions. His thinking was concrete and associations were not fully coherent. He denied hallucinations did not appear to be responding to internal stimuli. IMPRESSIONS: He is a 40-year-old male with long history of an alcohol use disorder. He presented to the [facility] acutely intoxicated and is currently experiencing moderate to severe alcohol withdrawal symptoms. He also has a diagnosis of depressive disorder disorder and is currently treated with multiple psychotropic medications. He is at risk for severe withdrawal including delirium tremens. He would benefit from referral for substance abuse treatment. There is no indication for transfer to the psychiatric at this time. DIAGNOSIS: Alcohol withdrawal, rule out alcohol withdrawal delirium, alcohol use disorder severe dependence, unspecified depressive disorder, rule out alcohol induced depressive disorder rule out major depressive disorder RECOMMENDATION: Continue with alcohol withdrawal treatment regimen, monitor for signs and symptoms of withdrawal delirium, Psychiatry will follow. 06/27/20 10:49
[2020-06-27 12:20] LABS: HCT 33.7 % (39.6-50.0); HGB 11.4 g/dL (13.0-17.0); MCH 29.6 pg (27.0-32.0); MCHC 33.8 g/dL (32.0-37.0); MCV 87.5 fL (80.0-97.0); Mean Platelet Volume 10.6 fL (9.5-12.2); Platelet Count 32 X 10*3/uL (140-440); RBC 3.85 X 10*6/uL (4.40-5.60); RDW 17.9 % (11.5-14.5); WBC 2.13 X 10*3/uL (4.50-10.00)
[2020-06-27 12:21] LABS: Anisocytosis (M) 2+; Basophils # (M) 0.02 X 10*3/uL (0.00-0.10); Eosinophils # (M) 0.04 X 10*3/uL (0.04-0.35); Lymphocytes # (M) 0.94 X 10*3/uL (0.90-5.00); Monocytes # (M) 0.19 X 10*3/uL (0.20-1.00); Neutrophils # (M) 0.94 X 10*3/uL (2.00-8.90); Neutrophils % (M) 44 %
[2020-06-27] MEDS: MULTIVITAMINS, THERA 1 EACH TAB PO SCH (13:28)
[2020-06-27] MEDS: FOLIC ACID 1 MG TAB PO SCH (13:28)
[2020-06-27] MEDS: IBUPROFEN 400 MG TAB PO PRN (14:26)
[2020-06-27] MEDS ORDERED: HALOPERIDOL LACTATE 5 MG/ML 1 ML VIAL IM PRN (16:26)
--- NOTE | 2020-06-27 17:49 | XR ---
EXAMINATION TYPE: XR chest 1V portable DATE OF EXAM: 06/27/2020 COMPARISON: 03/08/2020. HISTORY: Upper abdominal pain. TECHNIQUE: Single frontal view of the chest is obtained. FINDINGS: There is no focal air space opacity, pleural effusion, or pneumothorax seen. The cardiac silhouette size is within normal limits. The osseous structures are intact. IMPRESSION: No acute process.
--- NOTE | 2020-06-27 18:13 | PN ---
PROGRESS NOTE DATE OF SERVICE: 06/27/2020 This 40-year-old gentleman admitted with alcohol intoxication, remains acutely confused. Patient is tremulous. Patient is going through acute delirium tremens. Multiple consultants including psychiatry is following the patient closely. No chest pain. No palpitations. No fever. Patient has got some leukopenia also. PAST MEDICAL HISTORY: Reviewed. REVIEW OF SYSTEMS: Could not be taken, the patient is confused. CURRENT MEDICATIONS: Reviewed and include Ventolin, Wellbutrin, BuSpar, Librium, Klonopin. Doses reviewed. PHYSICAL EXAM: Patient is conscious but confused. Pulse 76, blood pressure is 114/60, respirations 16, temperature 98 degrees, T-max 100.2, pulse ox 97% on room air. HEENT: Conjunctivae normal. Oral mucosa moist. NECK: No jugular venous distention. No lymph node enlargement. CARDIOVASCULAR: S1, S2, muffled. No S3, no S4, RESPIRATORY: Diminished breath sounds at the bases. A few scattered rhonchi and crackles. ABDOMEN: Soft, nontender. LEGS: No edema, no swelling. NERVOUS SYSTEM: Diffusely weak and tremors. LABS: WBC 2.1, hemoglobin 11.14. UA unremarkable. Drug screen is noted and alcohol is 284. ASSESSMENT: 1. Acute alcohol intoxication and withdrawal symptoms. 2. Acute delirium tremens. 3. Fever, for evaluation. 4. Change in mental status, acute metabolic encephalopathy, multifactorial. 5. Leukopenia. 6. Anemia. 7. Thrombocytopenia. 8. Mild pancytopenia. 9. Increased sodium and hypernatremia with dehydration. 10.Elevated AST, ALT, alcoholic hepatitis. 11.History of chronic obstructive pulmonary disease. 12.Gastroesophageal reflux disease. 13.History of seizure disorder. 14.History of scoliosis as a child. 15.History of anxiety, bipolar depression. 16.History of nicotine dependence. 17.Mild protein calorie malnutrition with body mass index of 18.1. 18.FULL CODE. RECOMMENDATIONS AND DISCUSSION: I recommend to continue current medications, symptomatic treatment. Otherwise at this time I recommend UA with micro and as well as portable chest x-ray and symptomatic treatment for the fever, blood cultures. Guarded prognosis because of multiple complex medical issues. Further recommendations to follow. MMODL / IJN: [id number] /
[2020-06-27] MEDS: SODIUM CHLORIDE 0.9% 1,000 ML IV SCH (19:00)
[2020-06-27] MEDS: traZODone HCL 50 MG TAB PO SCH (20:10)
[2020-06-28] MEDS: LORazepam 2 MG/ML INJ IV PRN ×9 (04:07→23:00)
[2020-06-28] MEDS: SODIUM CHLORIDE 0.9% 1,000 ML IV SCH ×2 (05:08→19:53)
[2020-06-28] MEDS: IBUPROFEN 400 MG TAB PO PRN ×2 (07:43→13:15)
[2020-06-28] MEDS: PANTOPRAZOLE 40 MG TABLET PO SCH ×2 (07:43→19:38)
[2020-06-28] MEDS: THIAMINE 100 MG TAB PO SCH ×2 (07:44→15:43)
[2020-06-28] MEDS: busPIRone HCl 5 MG TAB PO SCH ×2 (07:44→19:38)
[2020-06-28] MEDS: chlordiazePOXIDE 25 MG CAP PO SCH ×3 (07:45→19:54)
[2020-06-28] MEDS: buPROPion XL 300 MG TAB.ER.24H PO SCH (07:45)
[2020-06-28] MEDS: LORATADINE 10 MG TAB PO SCH (07:45)
[2020-06-28] MEDS: IPRATROPIUM 0.5 MG/2.5 ML NEBU INHALATION SCH ×4 (09:14→19:19)
[2020-06-28 11:26] LABS: African American GFR (CKD) 134.9 (60.0-200.0); Albumin 3.9 g/dL (3.80-4.90); Albumin/Globulin Ratio 1.44 (1.60-3.17); Anion Gap 6.6 mmol/L (4.00-12.00); BUN/Creat Ratio 21.43 Ratio (12.00-20.00); Calcium 8.4 mg/dL (8.7-10.3); Carbon Dioxide 22.4 mmol/L (21.6-31.8); Globulin 2.7 g/dL (1.6-3.3); Non-African American GFR(CKD) 116.4 (60.0-200.0); Potassium 3.7 mmol/L (3.5-5.5); Total Bilirubin 0.7 mg/dL (0.3-1.2); Total Protein 6.6 g/dL (6.2-8.2)
[2020-06-28] MEDS: ALBUTEROL NEBULIZED 2.5 MG/3 ML INHALATION PRN (12:37)
[2020-06-28 12:52] LABS: Basophils # (A) 0.02 X 10*3/uL (0.00-0.10); Basophils % (A) 0.8 %; Eosinophils # (A) 0.04 X 10*3/uL (0.04-0.35); Eosinophils % (A) 1.5 %; HCT 31.8 % (39.6-50.0); HGB 10.5 g/dL (13.0-17.0); Lymphocytes # (A) 0.76 X 10*3/uL (0.90-5.00); Lymphocytes % (A) 28.9 %; MCH 29.3 pg (27.0-32.0); MCV 88.8 fL (80.0-97.0); Monocytes # (A) 0.26 X 10*3/uL (0.20-1.00); Monocytes % (A) 9.9 %; Neutrophils # (A) 1.54 X 10*3/uL (1.80-7.70); Neutrophils % (A) 58.5 %; Platelet Count 21 X 10*3/uL (140-440); RBC 3.58 X 10*6/uL (4.40-5.60); RDW 17.2 % (11.5-14.5); WBC 2.63 X 10*3/uL (4.50-10.00)
[2020-06-28 12:53] LABS: Anisocytosis (M) 2+
[2020-06-28] MEDS: FOLIC ACID 1 MG TAB PO SCH (13:14)
[2020-06-28] MEDS: MULTIVITAMINS, THERA 1 EACH TAB PO SCH (13:15)
--- NOTE | 2020-06-28 15:34 | P.CON ---
Consult Note - . Consult date: 06/28/20 Assessment/Plan:: Clinical Problems: Alcohol withdrawal, rule out alcohol withdrawal delirium, alcohol use disorder severe dependence, unspecified depressive disorder, rule out alcohol induced depressive disorder rule out major depressive disorder Interim history: I reviewed the medical record and interviewed the patient. He continues to experience moderate to severe alcohol withdrawal symptoms with CIWA scores ranging from 3-17. He is receiving 75 mg of Librium daily in addition to when necessary oral and intravenous Ativan. Yesterday he received a total of 18 mg of Ativan IV. Today, he received a total of 10 mg a medication IV. She remains resistant to referral for residential substance abuse treatment. He minimizes his alcohol use and alcohol use problem instead focusing on his subjective reports depression. He believes that the cause of his alcohol use is his "depression". He refused to consider the psychological effects of chronic and heavy alcohol use on mood and thinking. Mental status exam: He presented as a disheveled and cachectic-appearing 40-year-old male who was resting in bed. He had marked hand tremor. He had a anxious facial expression. He was oriented to person and place. His speech was dysarthric. His affect was anxious. Did not express suicidal ideation or wishes. He expressed feelings of hopelessness and helplessness over his alcohol use problems. Denies present use reference, p aranoid ideation or delusions. His thinking is very concrete but his associations were goal directed. He denied hallucinations did not appear to be responding to internal stimuli. Assessment: He has a severe alcohol use problems and will benefit from residential substance abuse treatment followed by prolonged community base treatment. There is no indication for admission this psychiatric unit at this time. Plan: Continue current psychotropic medications including Wellbutrin XL 300 mg daily, BuSpar 50 mg twice a day and trazodone 50 mg at bedtime. Encourage admission to a residential substance abuse treatment program. Psychiatry will sign off on the case. Thank you for the consult.
--- NOTE | 2020-06-28 16:19 | PN ---
PROGRESS NOTE DATE OF SERVICE: 06/28/2020 This 40-year-old gentleman who was admitted with acute alcohol intoxication and withdrawal symptoms is being closely monitored. The patient also had acute delirium. The most recent chest x-ray showed no acute abnormality. The patient's gait is unsteady. The patient is on [facility] protocol. Multiple consultants are following the patient closely. Past medical history reviewed. REVIEW OF SYSTEMS: CARDIOVASCULAR SYSTEM: No angina, palpitations. RESPIRATORY SYSTEM: No cough, hemoptysis. GI: As mentioned earlier. NERVOUS SYSTEM: As mentioned earlier. CURRENT MEDICATIONS: Reviewed. They include Ventolin, Wellbutrin, BuSpar, Librium, Klonopin, Atrovent, Claritin, Ativan Doses are reviewed. PHYSICAL EXAMINATION: Patient is alert and oriented x2. Pulse 56, blood pressure 104/55, respirations 17, temperature 98.6, pulse ox 98% on room air. HEENT: Conjunctivae normal. NECK: No jugular venous distention. CARDIOVASCULAR SYSTEM: S1, S2 muffled. RESPIRATORY SYSTEM: Breath sounds diminished at the bases. Bilateral scattered rhonchi and crackles. ABDOMEN: Soft, non-tender. LEGS: No edema. No swelling. NERVOUS SYSTEM: Diffuse tremors mild diffuse weakness present. No focal weakness or abnormal movements elicited. SKIN: No ulcer, rash, bleeding. WITH JOINTS: No active deforming arthropathy. LABS: WBC 2.6, hemoglobin 10.5, platelets are 21. Calcium is 8.4. Albumin/globulin ratio noted. ASSESSMENT: 1. Acute alcohol intoxication and withdrawal symptoms. 2. Acute delirium tremens. 3. Fever, improved. 4. Change in mental status, acute metabolic encephalopathy, multifactorial. 5. Leukopenia. 6. Anemia. 7. Thrombocytopenia, worsening. 8. Mild pancytopenia. 9. Increased sodium and hypernatremia with dehydration. 10.Elevated AST and ALT; alcoholic hepatitis. 11.History of chronic obstructive pulmonary disease. 12.History of gastroesophageal reflux disease. 13.History of seizure disorder. 14.History of scoliosis as a child. 15.History of anxiety, bipolar, depression. 16.History of nicotine dependence. 17.Mild protein-calorie malnutrition with body mass index 18.1. 18.FULL CODE. RECOMMENDATIONS AND DISCUSSION: I recommend to continue current medications, continue with the monitoring, symptomatic treatment. I would also recommend psychiatric consultation as well as consulting Hematology/Oncology for the severe thrombocytopenia. Otherwise, repeat labs. Guarded prognosis because of multiple complex medical conditions. Further recommendations to follow. CIWA protocol. Continue the rest of the medications as well. MMODL / IJN: [id number] / MTDD
[2020-06-28] MEDS: clonazePAM 0.5 MG TAB PO PRN (18:10)
[2020-06-28] MEDS: traZODone HCL 50 MG TAB PO SCH ×2 (19:38→23:02)
[2020-06-29] MEDS: LORazepam 2 MG/ML INJ IV PRN ×4 (00:54→19:47)
[2020-06-29] MEDS: ALBUTEROL NEBULIZED 2.5 MG/3 ML INHALATION PRN ×2 (07:30→20:23)
[2020-06-29] MEDS: IPRATROPIUM 0.5 MG/2.5 ML NEBU INHALATION SCH ×4 (07:41→20:23)
[2020-06-29 08:13] LABS: ALT 178 U/L (4-49); AST 301 U/L (17-59); African American GFR (CKD) >90 (>60 ml/min/1.73 sqM); Albumin 3.9 g/dL (3.5-5.0); Albumin/Globulin Ratio 1.1; Alkaline Phosphatase 63 U/L (38-126); Anion Gap 10 mmol/L; Blood Urea Nitrogen 12 mg/dL (9-20); Carbon Dioxide 21 mmol/L (22-30); Chloride 104 mmol/L (98-107); Globulin 3.5 g/dL; Glucose 95 mg/dL (74-99); Non-African American GFR(CKD) >90 (>60 ml/min/1.73 sqM); Potassium 3.8 mmol/L (3.5-5.1); Sodium 135 mmol/L (137-145); Total Bilirubin 0.8 mg/dL (0.2-1.3); Total Protein 7.4 g/dL (6.3-8.2)
[2020-06-29] MEDS: busPIRone HCl 5 MG TAB PO SCH ×2 (10:19→20:11)
[2020-06-29] MEDS: chlordiazePOXIDE 25 MG CAP PO SCH ×3 (10:19→20:11)
[2020-06-29] MEDS: LORATADINE 10 MG TAB PO SCH (10:19)
[2020-06-29] MEDS: PANTOPRAZOLE 40 MG TABLET PO SCH ×2 (10:19→20:12)
[2020-06-29] MEDS: buPROPion XL 300 MG TAB.ER.24H PO SCH (10:19)
[2020-06-29] MEDS: SODIUM CHLORIDE 0.9% 1,000 ML IV SCH (10:20)
[2020-06-29] MEDS: THIAMINE 100 MG TAB PO SCH ×2 (10:20→17:40)
[2020-06-29] MEDS: MULTIVITAMINS, THERA 1 EACH TAB PO SCH (12:36)
[2020-06-29] MEDS: FOLIC ACID 1 MG TAB PO SCH (12:36)
[2020-06-29 13:47] LABS: Basophils # (A) 0.01 X 10*3/uL (0.00-0.10); Basophils % (A) 0.5 %; Eosinophils # (A) 0.09 X 10*3/uL (0.04-0.35); Eosinophils % (A) 4.3 %; HCT 31.8 % (39.6-50.0); HGB 10.9 g/dL (13.0-17.0); Lymphocytes # (A) 0.85 X 10*3/uL (0.90-5.00); Lymphocytes % (A) 41.1 %; MCH 29.9 pg (27.0-32.0); MCHC 34.3 g/dL (32.0-37.0); MCV 87.4 fL (80.0-97.0); Monocytes # (A) 0.25 X 10*3/uL (0.20-1.00); Monocytes % (A) 12.1 %; Neutrophils # (A) 0.86 X 10*3/uL (1.80-7.70); Neutrophils % (A) 41.5 %; Platelet Count 24 X 10*3/uL (140-440); RBC 3.64 X 10*6/uL (4.40-5.60); RDW 17.3 % (11.5-14.5); WBC 2.07 X 10*3/uL (4.50-10.00)
[2020-06-29 13:51] LABS: Partial Thromboplastin Time 22.2 sec (22.0-30.0)
--- NOTE | 2020-06-29 14:46 | PN ---
PROGRESS NOTE DATE OF SERVICE: 06/29/2020 This 40-year-old gentleman who was admitted with alcohol intoxication also seeing significant tremors suggestive of delirium tremens. No chest pain. No palpitations. No fever. PHYSICAL EXAMINATION: Patient is alert and oriented x3. Pulse 88, blood pressure 119/75, respirations 18, temperature 98.2, pulse ox 98% on room air. HEENT: Conjunctivae normal. NECK: No jugular venous distention. CARDIOVASCULAR: S1, S2 muffled. RESPIRATORY: Breath sounds diminished at the bases. A few scattered rhonchi. ABDOMEN: Soft. NERVOUS SYSTEM: No focal deficit. LABS: WBC 2.07, hemoglobin 10.9, platelets are 24. Sodium is 135. ASSESSMENT: 1. Acute alcohol intoxication withdrawal symptoms. 2. Acute delirium tremens. 3. Fever, improved. 4. Change in mental status, acute metabolic encephalopathy, multifactorial. 5. Leukopenia. 6. anemia. 7. Thrombocytopenia, stable. 8. Mild pancytopenia. 9. Increased sodium and hypernatremia with dehydration, present on admission. 10.Elevated AST, ALT, alcoholic hepatitis. 11.History of chronic obstructive pulmonary disease. 12.History of gastroesophageal reflux disease. 13.History of seizure disorder. 14.history of scoliosis as a child. 15.History of anxiety, bipolar, depression. 16.History of nicotine dependence. 17.Mild protein calorie malnutrition with body mass index 18.1. 18.FULL CODE. RECOMMENDATIONS AND DISCUSSION: Recommend to continue current medications, continue with symptomatic treatment. Repeat labs. Otherwise, we will stop the IV fluids and encourage p.o. Otherwise repeat labs. guarded prognosis because of multiple complex medical issues and further recommendations to follow. Hematology/Oncology evaluation for evaluation of pancytopenia appreciated. MMODL / IJN: [id number] /
--- NOTE | 2020-06-29 14:51 | P.CONS ---
History of Present Illness - Reason for Consult Consult date: 06/29/20 pancytopenia Requesting physician: Lisa Rahman - Chief Complaint ETOH - History of Present Illness Mr. Marie is a mildly confused 40 yo admitted for severe ETOH intoxication that we have been asked to see regarding thrombocytopenia/pancytopenia. Denies history of blood disorders or knowledge of blood problems, no unusual bleeding, recurrent infections. Review of Systems 10 point ROS is neg as much as be obtained from pt. Chart reviewed ROS unobtainable: due to mental status Past Medical History Past Medical History: COPD, GERD/Reflux, Seizure Disorder Additional Past Medical History / Comment(s): Alcoholism , pt has scoliosis as a child History of Any Multi-Drug Resistant Organisms: None Reported Past Surgical History: No Surgical Hx Reported Additional Past Surgical History / Comment(s): Strabismus surgery as a child- Left eye surgery. blind in left eye Past Anesthesia/Blood Transfusion Reactions: No Reported Reaction Past Psychological History: Anxiety, Bipolar, Depression Additional Psychological History / Comment(s): Patient states he has been diagnosed with bipolar. Smoking Status: Current every day smoker Past Alcohol Use History: Abuse, Daily, Heavy Additional Past Alcohol Use History / Comment(s): Patient is a smoker one pack per day since he was 15 years of age. He denies any street drug or marijuana use. He drinks one pint one day, then a 1/5th the next Past Drug Use History: None Reported Additional Drug Use History / Comment(s): fentanyl- use 03-19-19. - Past Family History Father Family Medical History: COPD Additional Family Medical History / Comment(s): Father is alive in his 50s with history of COPD. Sister(s) Additional Family Medical History / Comment(s): He has 5 sisters and one has drug abuse issues. Patient does not have any brothers. He has one 5-year-old daughter. Mother History Unknown: Yes Additional Family Medical History / Comment(s): Mother is alive in her 50s with no major medical problems. Medications and Allergies Home Medications Medication Instructions Recorded Confirmed Type Buprenorphine HCl/Naloxone HCl 1 film SL BID PRN 03/06/20 06/26/20 History [Suboxone 8 mg-2 mg Sl Film] buPROPion XL [Wellbutrin Xl] 300 mg PO DAILY 03/06/20 06/26/20 History busPIRone HCL 15 mg PO BID 10/24/20 02/13/21 History clonazePAM 0.5 mg PO HS PRN 03/06/20 06/26/20 History Albuterol Sulfate [Proair Hfa] 2 puff INHALATION RT-QID PRN 06/26/20 06/26/20 History Ibuprofen [Motrin] 800 mg PO Q8H PRN 06/26/20 06/26/20 History Ipratropium [place] [Atrovent Hfa] 2 puff INHALATION RT-QID 06/26/20 06/26/20 History Loratadine [Claritin] 10 mg PO DAILY 06/26/20 06/26/20 History Omeprazole 40 mg PO BID 06/26/20 06/26/20 History traZODone HCL [Desyrel] 50 mg PO HS 06/26/20 06/26/20 History Allergies Allergy/AdvReac Type Severity Reaction Status Date / Time No Known Allergies Allergy Verified 06/26/20 10:42 Physical Exam Vitals: Vital Signs Temp Pulse Pulse Resp BP Pulse Ox 06/29/20 07:40 92 06/29/20 07:30 90 06/29/20 02:15 98.2 F 88 18 98 06/28/20 20:00 51 L 18 06/28/20 19:30 98.9 F 51 L 18 119/75 94 L 06/28/20 14:00 99.2 F 58 L 19 91/56 98 06/28/20 12:44 96 06/28/20 12:35 92 Intake and Output 06/28/20 06/29/20 06/29/20 22:59 06:59 14:59 Intake Total 700 Output Total 1 Balance 699 Intake: Oral 700 Output: Urine/Stool Mix 1 Other: # Voids 3 4 - Constitutional General appearance: no acute distress, thin - EENT Eyes: anicteric sclerae, EOMI ENT: hearing grossly normal - Neck Neck: no lymphadenopathy - Respiratory Respiratory: bilateral: diminished - Cardiovascular Rhythm: regular Heart sounds: normal: S1, S2 Abnormal Heart Sounds: no systolic murmur, no diastolic murmur, no rub, no S3 Gallop, no S4 Gallop, no click, no other leg Peripheral Edema: bilateral: None - Gastrointestinal General gastrointestinal: no absent bowel sounds, no decreased bowel sounds, no distended, no hepatomegaly, no hyperactive bowel sounds, normal bowel sounds, no organomegaly, no rigid, no scaphoid, soft, no splenomegaly, no tenderness, no umbilical hernia, no ventral hernia - Neurologic Neurologic: CNII-XII intact - Musculoskeletal Musculoskeletal: generalized weakness - Psychiatric slow to respond, not sure of degree of comprehension Results CBC & Chem 7: 06/29/20 07:06 06/29/20 07:06 Labs: Abnormal Lab Results - Last 24 Hours (Table) 06/28/20 06/28/20 06/29/20 Range/Units 07:34 07:34 07:06 WBC 2.63 L (4.50-10.00) X 10*3/uL RBC 3.58 L (4.40-5.60) X 10*6/uL Hgb 10.5 L (13.0-17.0) g/dL Hct 31.8 L (39.6-50.0) % RDW 17.2 H (11.5-14.5) % Plt Count 21 L (140-440) X 10*3/uL Plt Count Comment A Neutrophils # 1.54 L (1.80-7.70) X 10*3/uL Lymphocytes # 0.76 L (0.90-5.00) X 10*3/uL Immature Plt Fraction 11.2 H (1.1-6.1) % Sodium 135 L (137-145) mmol/L Carbon Dioxide 21 L (22-30) mmol/L BUN/Creatinine Ratio 21.43 H (12.00-20.00) Ratio Calcium 8.4 L (8.7-10.3) mg/dL AST 194 H 301 H (14-35) U/L ALT 106 H 178 H (10-49) U/L Albumin/Globulin Ratio 1.44 L (1.60-3.17) g/dL Microbiology - Last 24 Hours (Table) 06/27/20 17:11 Blood Culture - Preliminary Blood No Growth after 24 hours Chest x-ray: report reviewed Assessment and Plan (1) Pancytopenia Narrative/Plan: Pancytopenia work up to eval for nutritional deficiencies and paraproteinemia ordered No transfusions needed at this time, no GCSF, ANC >500. Counts low but adequate-pt is not on any anticoagulation chronically. Monitor for bleeding, he is on motrin CBC daily Current Visit: Yes Status: Chronic Priority: Medium Code(s): D61.818 - OTHER PANCYTOPENIA SNOMED Code(s): 173419527 Plan: Doctor attests: I performed a history and physical examination of this patient, developed impression and plan of care, discussed with dictator. I agree with dictators note, documented as a scribe.
[2020-06-29 17:25] LABS: Ferritin 880.4 ng/mL (22.0-322.0)
[2020-06-29 18:24] LABS: Protein, Total 6.5 g/dL (6.2-8.2)
[2020-06-29] MEDS: traZODone HCL 50 MG TAB PO SCH (20:11)
[2020-06-30] MEDS: clonazePAM 0.5 MG TAB PO PRN (01:04)
[2020-06-30] MEDS: IBUPROFEN 400 MG TAB PO PRN (01:46)
[2020-06-30] MEDS: LORazepam 2 MG/ML INJ IV PRN ×6 (01:46→23:50)
[2020-06-30] MEDS: IPRATROPIUM 0.5 MG/2.5 ML NEBU INHALATION SCH ×4 (07:58→20:07)
[2020-06-30] MEDS: PANTOPRAZOLE 40 MG TABLET PO SCH ×2 (09:25→21:41)
[2020-06-30] MEDS: THIAMINE 100 MG TAB PO SCH ×2 (09:25→17:34)
[2020-06-30] MEDS: LORATADINE 10 MG TAB PO SCH (09:25)
[2020-06-30] MEDS: buPROPion XL 300 MG TAB.ER.24H PO SCH (09:25)
[2020-06-30] MEDS: busPIRone HCl 5 MG TAB PO SCH ×2 (09:25→21:40)
[2020-06-30] MEDS: chlordiazePOXIDE 25 MG CAP PO SCH ×3 (09:25→21:41)
[2020-06-30 10:00] LABS: Basophils # (A) 0.03 X 10*3/uL (0.00-0.10); Basophils % (A) 1.2 %; Eosinophils # (A) 0.09 X 10*3/uL (0.04-0.35); Eosinophils % (A) 3.7 %; HCT 31.7 % (39.6-50.0); HGB 10.4 g/dL (13.0-17.0); Lymphocytes # (A) 1.01 X 10*3/uL (0.90-5.00); Lymphocytes % (A) 41.7 %; MCH 29.1 pg (27.0-32.0); MCHC 32.8 g/dL (32.0-37.0); MCV 88.8 fL (80.0-97.0); Monocytes # (A) 0.39 X 10*3/uL (0.20-1.00); Monocytes % (A) 16.1 %; Neutrophils # (A) 0.89 X 10*3/uL (1.80-7.70); Neutrophils % (A) 36.9 %; Platelet Count 36 X 10*3/uL (140-440); RBC 3.57 X 10*6/uL (4.40-5.60); RDW 17.2 % (11.5-14.5); WBC 2.42 X 10*3/uL (4.50-10.00)
[2020-06-30 11:40] LABS: Free Kappa Lt Chain Qnt, Serum 2.24 mg/dL (0.33-1.94)
--- NOTE | 2020-06-30 12:13 | P.PN ---
Subjective Progress Note Date: 06/30/20 Principal diagnosis: pancytopenia Pt is awake when seen, slow to answer, wants to know why he is so weak. Objective - Vital Signs Vital signs: Vital Signs Temp 98.1 F 06/30/20 08:00 Pulse 57 L 06/30/20 08:00 Resp 16 06/30/20 08:00 BP 106/65 06/30/20 08:00 Pulse Ox 99 06/30/20 08:00 Intake & Output 06/29/20 06/30/20 06/30/20 18:59 06:59 18:59 Intake Total 240 240 Output Total 4 Balance 236 240 Intake: Oral 240 240 Output: Stool 4 Other: # Voids 2 1 - Constitutional General appearance: Present: no acute distress, thin - EENT Eyes: Present: anicteric sclerae, EOMI ENT: Present: hearing grossly normal - Respiratory Respiratory: bilateral: CTA - Cardiovascular Heart sounds: normal: S1, S2 - Peripheral edema leg Peripheral Edema: bilateral: None - Gastrointestinal General gastrointestinal: Present: normal bowel sounds, soft - Integumentary Integumentary: Present: pale - Musculoskeletal Musculoskeletal: Present: generalized weakness - Psychiatric Psychiatric Comment(s): depressed affect Psychiatric: Present: A&O x's 3 - Labs CBC & Chem 7: 06/30/20 06:49 06/29/20 07:06 Labs: Abnormal Lab Results - Last 24 Hours (Table) 06/29/20 06/29/20 06/30/20 Range/Units 07:06 10:24 06:49 WBC 2.07 L 2.42 L (4.50-10.00) X 10*3/uL RBC 3.64 L 3.57 L (4.40-5.60) X 10*6/uL Hgb 10.9 L 10.4 L (13.0-17.0) g/dL Hct 31.8 L 31.7 L (39.6-50.0) % RDW 17.3 H 17.2 H (11.5-14.5) % Plt Count 24 L 36 L (140-440) X 10*3/uL Plt Count Comment A DECREASED A Neutrophils # 0.86 L 0.89 L (1.80-7.70) X 10*3/uL Lymphocytes # 0.85 L (0.90-5.00) X 10*3/uL Immature Plt Fraction 17.2 H 13.7 H (1.1-6.1) % Ferritin 880.4 H (22.0-322.0) ng/mL Lactate Dehydrogenase 476 H (120-246) U/L Microbiology - Last 24 Hours (Table) 06/27/20 17:11 Blood Culture - Preliminary Blood No Growth after 48 hours Assessment and Plan (1) Pancytopenia Narrative/Plan: Pancytopenia work up to eval for nutritional deficiencies and paraproteinemia ordered-no marrow or nutritional deficiencies thus far with resulted tests No transfusions needed at this time, no GCSF, ANC >500. Counts low but adequate -plt slightly improved. Monitor for bleeding, he is on motrin CBC daily Current Visit: Yes Status: Chronic Priority: Medium Code(s): D61.818 - OTHER PANCYTOPENIA SNOMED Code(s): 609602780 Plan: Doctor attests: I performed a history and physical examination of this patient, developed impression and plan of care, discussed with dictator. I agree with dictators note, documented as a scribe.
[2020-06-30] MEDS: MULTIVITAMINS, THERA 1 EACH TAB PO SCH (12:16)
[2020-06-30] MEDS: FOLIC ACID 1 MG TAB PO SCH (12:17)
[2020-06-30 12:37] LABS: African American GFR (CKD) 127.7 (60.0-200.0); Albumin 4.2 g/dL (3.80-4.90); Albumin/Globulin Ratio 1.83 (1.60-3.17); Anion Gap 9.5 mmol/L (4.00-12.00); BUN/Creat Ratio 21.25 Ratio (12.00-20.00); Calcium 8.7 mg/dL (8.7-10.3); Carbon Dioxide 20.5 mmol/L (21.6-31.8); Globulin 2.3 g/dL (1.6-3.3); Non-African American GFR(CKD) 110.2 (60.0-200.0); Potassium 3.8 mmol/L (3.5-5.5); Total Bilirubin 0.7 mg/dL (0.2-1.2); Total Protein 6.5 g/dL (6.2-8.2)
[2020-06-30 13:42] LABS: Gamma Globulin 1.19 g/dL (0.70-1.50)
[2020-06-30 14:09] VITALS: BMI 18.1
--- NOTE | 2020-06-30 16:12 | PN ---
PROGRESS NOTE DATE OF SERVICE: 06/30/2020 This 40-year-old gentleman who was admitted with acute alcohol intoxication also continued to be confused. Patient has significant delirium tremens. Patient is extremely tremulous at this time. The patient also had pancytopenia. The platelets are 36 at this time. No chest pain. No palpitations. No fever. PHYSICAL EXAMINATION: Alert and oriented x1. Pulse is 81, blood pressure 90/56, respiration 16, temperature 98.9, pulse ox 98% on room air. HEENT: Conjunctivae normal. NECK: No jugular venous distention. CARDIOVASCULAR: S1, S2 muffled. RESPIRATORY: Breath sounds diminished at the bases. A few scattered rhonchi and crackles. ABDOMEN: Soft, nontender. LEGS: No edema. No swelling. NERVOUS SYSTEM: No focal deficits. LABS: WBC 2.4, hemoglobin 10.4. Sodium 132. ASSESSMENT: 1. Acute alcohol intoxication withdrawal symptoms. 2. Acute delirium tremens. 3. Change in mental status, metabolic encephalopathy, acute, multifactorial. 4. Fever, improved. 5. Severe leukopenia. 6. Anemia. 7. Thrombocytopenia, stable. 8. Mild pancytopenia. 9. Increased sodium and hypernatremia with dehydration, present on admission. 10.Elevated AST, ALT, alcoholic hepatitis. 11.History of chronic obstructive pulmonary disease. 12.Gastroesophageal reflux disease. 13.History of seizure disorder. 14.History of scoliosis as a child. 15.History of anxiety, depression, bipolar. 16.History of nicotine dependence. 17.Mild protein calorie malnutrition with body mass index of 18.1. 18.FULL CODE. RECOMMENDATIONS AND DISCUSSION: Recommend to continue current medications, continue symptomatic treatment. Otherwise at this time I would recommend to follow with Psychiatry and as well as Service Order Clerk. Continue with the Ativan for DTs. PT, OT evaluation. Consider ECF rehab. There is poor family support. Guarded prognosis. Further recommendations to follow. MMODL / IJN: [id number] /
[2020-06-30] MEDS: traZODone HCL 50 MG TAB PO SCH (21:41)
[2020-07-01] MEDS: LORazepam 2 MG/ML INJ IV PRN (04:10)
[2020-07-01 08:08] LABS: Methylmalonic Acid 0.13 umol/L (<0.40)
[2020-07-01] MEDS: IPRATROPIUM 0.5 MG/2.5 ML NEBU INHALATION SCH ×4 (08:21→20:41)
[2020-07-01] MEDS: busPIRone HCl 5 MG TAB PO SCH ×2 (09:43→21:16)
[2020-07-01] MEDS: chlordiazePOXIDE 25 MG CAP PO SCH ×3 (09:43→21:16)
[2020-07-01] MEDS: FOLIC ACID 1 MG TAB PO SCH (09:43)
[2020-07-01] MEDS: buPROPion XL 300 MG TAB.ER.24H PO SCH (09:44)
[2020-07-01] MEDS: PANTOPRAZOLE 40 MG TABLET PO SCH ×2 (09:44→21:16)
[2020-07-01] MEDS: THIAMINE 100 MG TAB PO SCH ×2 (09:44→17:54)
[2020-07-01] MEDS: LORATADINE 10 MG TAB PO SCH (09:44)
[2020-07-01 09:57] LABS: Basophils # (A) 0.03 X 10*3/uL (0.00-0.10); Basophils % (A) 1.1 %; Eosinophils # (A) 0.08 X 10*3/uL (0.04-0.35); Eosinophils % (A) 2.9 %; HCT 31.8 % (39.6-50.0); HGB 10.4 g/dL (13.0-17.0); Lymphocytes # (A) 1.15 X 10*3/uL (0.90-5.00); MCH 29.6 pg (27.0-32.0); MCHC 32.7 g/dL (32.0-37.0); MCV 90.6 fL (80.0-97.0); Mean Platelet Volume 10.9 fL (9.5-12.2); Monocytes % (A) 18.2 %; Neutrophils # (A) 0.97 X 10*3/uL (1.80-7.70); Neutrophils % (A) 35.4 %; Platelet Count 67 X 10*3/uL (140-440); RBC 3.51 X 10*6/uL (4.40-5.60); RDW 17.9 % (11.5-14.5); WBC 2.74 X 10*3/uL (4.50-10.00)
[2020-07-01 10:38] LABS: African American GFR (CKD) 134.9 (60.0-200.0); Albumin 4.1 g/dL (3.80-4.90); Albumin/Globulin Ratio 1.86 (1.60-3.17); Anion Gap 9.4 mmol/L (4.00-12.00); BUN/Creat Ratio 24.29 Ratio (12.00-20.00); Calcium 8.5 mg/dL (8.7-10.3); Carbon Dioxide 21.6 mmol/L (21.6-31.8); Globulin 2.2 g/dL (1.6-3.3); Non-African American GFR(CKD) 116.4 (60.0-200.0); Potassium 3.7 mmol/L (3.5-5.5); Total Bilirubin 0.7 mg/dL (0.2-1.2); Total Protein 6.3 g/dL (6.2-8.2)
--- NOTE | 2020-07-01 11:21 | P.PN ---
Subjective Progress Note Date: 07/01/20 Principal diagnosis: pancytopenia Pt is awake when seen, wants to know why he still doesn't feel well. Easy bruising but no overt bleeding Objective - Vital Signs Vital signs: Vital Signs Temp 97.8 F 07/01/20 07:46 Pulse 82 07/01/20 07:46 Resp 16 07/01/20 07:46 BP 96/61 07/01/20 07:46 Pulse Ox 100 07/01/20 07:46 Intake & Output 06/30/20 07/01/20 07/01/20 18:59 06:59 18:59 Intake Total 240 620 Balance 240 620 Weight 58.967 kg Intake: Oral 240 620 Other: # Voids 3 1 - Constitutional General appearance: Present: no acute distress, thin - EENT Eyes: Present: anicteric sclerae, EOMI ENT: Present: hearing grossly normal - Respiratory Details: resp even and unlabored - Integumentary Integumentary Comment(s): bruises noted on forearms - Musculoskeletal Musculoskeletal: Present: generalized weakness - Psychiatric Psychiatric Comment(s): Flat affect Psychiatric: Present: A&O x's 3 - Labs CBC & Chem 7: 07/01/20 06:35 07/01/20 06:35 Labs: Abnormal Lab Results - Last 24 Hours (Table) 06/29/20 06/29/20 06/30/20 Range/Units 07:06 10:24 06:49 WBC (4.50-10.00) X 10*3/uL RBC (4.40-5.60) X 10*6/uL Hgb (13.0-17.0) g/dL Hct (39.6-50.0) % RDW (11.5-14.5) % Plt Count (140-440) X 10*3/uL Neutrophils # (1.80-7.70) X 10*3/uL Immature Plt Fraction (1.1-6.1) % Sodium 132 L (135-145) mmol/L Carbon Dioxide 20.5 L (21.6-31.8) mmol/L BUN/Creatinine Ratio 21.25 H (12.00-20.00) Ratio Calcium (8.7-10.3) mg/dL AST 301 H (14-35) U/L ALT 274 H (10-49) U/L Albumin (PEP) 3.60 L (3.80-4.90) g/dL RBC Folate 872 H (280 - 791) ng/mL Free [place] LC, Quant 2.24 H (0.33-1.94) mg/dL Free [place] LC, Quant 3.41 H (0.57-2.63) mg/dL 07/01/20 07/01/20 Range/Units 06:35 06:35 WBC 2.74 L (4.50-10.00) X 10*3/uL RBC 3.51 L (4.40-5.60) X 10*6/uL Hgb 10.4 L (13.0-17.0) g/dL Hct 31.8 L (39.6-50.0) % RDW 17.9 H (11.5-14.5) % Plt Count 67 L (140-440) X 10*3/uL Neutrophils # 0.97 L (1.80-7.70) X 10*3/uL Immature Plt Fraction 9.8 H (1.1-6.1) % Sodium (135-145) mmol/L Carbon Dioxide (21.6-31.8) mmol/L BUN/Creatinine Ratio 24.29 H (12.00-20.00) Ratio Calcium 8.5 L (8.7-10.3) mg/dL AST 323 H (14-35) U/L ALT 403 H (10-49) U/L Albumin (PEP) (3.80-4.90) g/dL RBC Folate (280 - 791) ng/mL Free [place] LC, Quant (0.33-1.94) mg/dL Free Lambda LC, Quant (0.57-2.63) mg/dL Microbiology - Last 24 Hours (Table) 06/27/20 17:11 Blood Culture - Preliminary Blood No Growth after 72 hours Assessment and Plan (1) Pancytopenia Narrative/Plan: Pancytopenia work up to eval for nutritional deficiencies and paraproteinemia ordered-no marrow or nutritional deficiencies. His counts are slowly improving with ETOH cessation. No transfusions needed at this time, no GCSF, ANC >500. Counts low but adequate. Monitor for bleeding, he is on motrin. CBC daily while inpt. Recommend outpt monitoring. Reviewed with pt that alcohol is the reason for his low blood counts. It is da maging his bone marrow. Told him his counts are low but fairly safe range. Told him that his counts will drop again when he resumes drinking. The counts will all decrease if he gets sick. He nodded his head in the affirmative. Current Visit: Yes Status: Chronic Priority: Medium Code(s): D61.818 - OTHER PANCYTOPENIA SNOMED Code(s): 742874683
[2020-07-01] MEDS ORDERED: traZODone HCL 100 MG TAB PO PRN (13:46)
--- NOTE | 2020-07-01 13:48 | P.PN ---
Progress Note - Text Progress Note Date: 07/01/20 Interval History: Patient was seen today for psychiatric follow-up regarding patient's depression and alcohol abuse/withdrawal. Patient claims that he is continuing to feel "not well" however was not able to specifically state what he is feeling or any specific symptoms. He states that his sleep is continuing to be poor. He states he is sleeping approximately 3-4 hours a night. Patient was requesting to have his trazodone increased. He continues to state that he can quit alcohol on his own and was declining rehab and declined medications for alcohol cravings. He continues to state that his mood is "fine" and claimed that he has mild anxiety. At this time patient denies any suicidal or homical ideations, intent or plan. Patient denies any auditory, visual hallucinations and denies any paranoia or delusions. Patient denies any side effects from the medications and has been compliant with meds. Mental Status Exam: General Appearance: Patient appears to be older than stated age is alert, thin, directable and disheveled. mild Shaking/tremor in his hands. Behavior: Patient is calmly seated without any agitated behavior. Evasive. Speech: Patient's speech is fluent and nonpressured. Mood/Affect: Patient reports their mood is "fine" denies any depression, affect is congruent and constricted Suicidality/Homicidality: Patient denies having any suicidal or homicidal ideation intent or plan. Perceptions: Patient denies any auditory or visual hallucinations. Thought content/process: There is no evidence of any delusional thought content, patient is preoccupied with medications including controlled substances. Memory and concentration: AOX2, and that he does not know today's date, Judgment and insight: Chronically poor/superficial, improving mildly Assessment History of depressive disorder Anxiety disorder unspecified Alcohol abuse, currently in withdrawal Nicotine dependence Personality disorder unspecified likely cluster B Plan: -At this time patient DOES NOT meet criteria for inpatient psychiatric admission -Would recommend the following medication changes/additions: Continue with Librium taper for alcohol withdrawal symptoms. Continue with CIWA protocol with when necessary Ativan. Can continue with Wellbutrin, BuSpar as prescribed. Increased trazodone 100 mg daily prn at bedtime for insomnia/mood. d/c Klonopin. -patient is refusing medications for etoh cravings. -Associate Designer spoke with patient about substance abuse and the harmful effects on medical and mental health, patient verbally understood and agreed. -frog or oyster farmworker to provide patient substance use treatment resources including AA/NA meetings in the community. Patient claims that he is not interested in rehab at this time. He refused to go to [facility] as well. Patient claims that he did want to go to [facility] partial hospitalization program. -Psychiatry will sign off at this time -Please contact with any questions.
--- NOTE | 2020-07-01 15:27 | PN ---
PROGRESS NOTE DATE OF SERVICE: 07/01/2020. This 40-year-old gentleman admitted with acute alcohol intoxication also had significant delirium tremens also. Patient has significant tremors and change in mental status. Patient received significant amount of Ativan also. No chest pain. No palpitations. No fever. workers compensation specialist and gearcase assembler is also following the patient for arranging outpatient rehab also. PHYSICAL EXAMINATION: Alert and oriented x2. Pulse 82, blood pressure 96/61, respirations 16, temperature 97.8, pulse ox 100% on room air. HEENT: Conjunctivae normal. NECK: No jugular venous distention. CARDIOVASCULAR: S1, S2 muffled. RESPIRATORY: Breath sounds diminished at the bases. A few scattered rhonchi. ABDOMEN: Soft, nontender. LEGS: No edema, no swelling. NERVOUS SYSTEM: No focal deficits. LABS: Labs are at this time shows WBC 2.7, hemoglobin 10.4, platelets 67, other labs are noted. ASSESSMENT: 1. Acute alcohol intoxication and withdrawal symptoms, present on admission. 2. Acute delirium tremens. 3. Change in mental status, acute metabolic encephalopathy multifactorial. 4. Fever, improved. 5. Severe leukopenia. 6. Anemia. 7. Thrombocytopenia, stable, improving. 8. Mild pancytopenia. 9. Increased sodium and hypernatremia with dehydration, present on admission. 10.Elevated AST, ALT, alcoholic hepatitis. 11.History of chronic COPD. 12.Gastroesophageal reflux disease. 13.History of seizure disorder. 14.History of scoliosis at a child. 15.History of anxiety, depression, bipolar. 16.History of nicotine dependence. 17.Mild protein calorie malnutrition with body mass index 18.1. 18.FULL CODE. RECOMMENDATIONS AND DISCUSSION: Recommend to continue current medications, continue symptomatic treatment. Otherwise at this time I recommend continue with the current medication. Continue with Ativan. CIWA protocol. Hematology/Oncology following the patient regarding pancytopenia. Prognosis guarded. Further recommendations to follow. MMODL / IJN: [id number] /
[2020-07-01] MEDS: MULTIVITAMINS, THERA 1 EACH TAB PO SCH (17:54)
[2020-07-02 02:52] VITALS: RESP 16
[2020-07-02] MEDS: IPRATROPIUM 0.5 MG/2.5 ML NEBU INHALATION SCH ×2 (08:40→11:48)
[2020-07-02] MEDS: buPROPion XL 300 MG TAB.ER.24H PO SCH (08:47)
[2020-07-02] MEDS: LORATADINE 10 MG TAB PO SCH (08:47)
[2020-07-02] MEDS: PANTOPRAZOLE 40 MG TABLET PO SCH (08:47)
[2020-07-02] MEDS: chlordiazePOXIDE 25 MG CAP PO SCH (08:47)
[2020-07-02] MEDS: THIAMINE 100 MG TAB PO SCH (08:48)
[2020-07-02] MEDS: busPIRone HCl 5 MG TAB PO SCH (08:48)
[2020-07-02 09:58] LABS: Basophils # (A) 0.04 X 10*3/uL (0.00-0.10); Basophils % (A) 1.5 %; Eosinophils # (A) 0.08 X 10*3/uL (0.04-0.35); Eosinophils % (A) 2.9 %; HGB 10.6 g/dL (13.0-17.0); Lymphocytes # (A) 1.11 X 10*3/uL (0.90-5.00); Lymphocytes % (A) 40.5 %; MCH 29.9 pg (27.0-32.0); MCHC 33.1 g/dL (32.0-37.0); MCV 90.1 fL (80.0-97.0); Mean Platelet Volume 10.6 fL (9.5-12.2); Monocytes # (A) 0.64 X 10*3/uL (0.20-1.00); Monocytes % (A) 23.4 %; Neutrophils # (A) 0.86 X 10*3/uL (1.80-7.70); Neutrophils % (A) 31.3 %; Platelet Count 103 X 10*3/uL (140-440); RBC 3.55 X 10*6/uL (4.40-5.60); RDW 17.8 % (11.5-14.5); WBC 2.74 X 10*3/uL (4.50-10.00)
[2020-07-02] MEDS: MULTIVITAMINS, THERA 1 EACH TAB PO SCH (11:26)
[2020-07-02] MEDS: FOLIC ACID 1 MG TAB PO SCH (11:26)
[2020-07-02 12:43] LABS: African American GFR (CKD) 134.9 (60.0-200.0); Albumin 4.2 g/dL (3.80-4.90); Albumin/Globulin Ratio 1.83 (1.60-3.17); BUN/Creat Ratio 24.29 Ratio (12.00-20.00); Calcium 9.2 mg/dL (8.7-10.3); Globulin 2.3 g/dL (1.6-3.3); Non-African American GFR(CKD) 116.4 (60.0-200.0); Potassium 3.8 mmol/L (3.5-5.5); Total Bilirubin 0.6 mg/dL (0.2-1.2); Total Protein 6.5 g/dL (6.2-8.2)
[2020-07-02 14:07] VITALS: BP 96/67; PULSE 89; TEMP 97.7
--- NOTE | 2020-07-03 10:51 | CDI ---
Documentation Clarification Form Date: 07/03/2020 10:49:00 AM From: Carolin Mcmahon CCS Phone: If you have a question about this query, please contact Nina Darden Gelatin Powder Mixer at [phone] between 8am and 5pm Admit Date: 06/28/2020 09:58:00 AM Patient Name: Pola Marie Visit Number: [id number] Discharge Date: 07/02/2020 02:14:00 PM ATTENTION: The Clinical Documentation Specialists (CDI) and [facility] Coding Staff appreciate your assistance in clarifying documentation. Please respond to the clarification below the line at the bottom and electronically sign. The CDI & [facility] Coding staff will review the response and follow-up if needed. Please note: Queries are made part of the Legal Health Record. If you have any questions, please contact the author of this message via ITS. Dr. Lisa Rahman A pressure ulcer was documented in the Dietary Consult and Wound Assessment . History/Risk Factors: Alcoholism, Pancytopenia, Malnutrition, COPD, Alcoholic hepatitis, Dehydration, Encephalopathy Clinical Indicators: Pressure wound Location: Right hip stage II Wound description: Pressure injury stage II POA Treatment: Optifoam, Dietary for wound healing Elements for accurate and compliant documentation of an ulcer: *The location/laterality of the ulcer *Etiology (decubitus/pressure, diabetic, PVD) *Stage I-IV, Unstageable, Suspected Deep Tissue Injury (To the deepest stage) *If the ulcer was present at admission (POA) or occurred after admission In your professional opinion, can you please clarify if you agree the diagnosis of pressure ulcer right hip stage II, present on admission (POA): Stage 2 Pressure/Decubitus Ulcer Right Hip (Partial thickness, loss of dermis, pink wound bed) Pressure Ulcer ruled out Other condition, please specify Unable to determine Stage 2 Pressure/Decubitus Ulcer Right Hip (Partial thickness, loss of dermis, pink wound bed) MTDD
== END 2020-07-02 14:14 | disposition home or self-care (01) | DRG 896 ==
LOC: EC 09:02 → 4SSUR 10:52 → OBSVTOIN 06-28 09:58
PROVIDERS: ADMIT Hospitalist; ATTEND Hospitalist
DX: F10.231 Alcohol dependence with withdrawal delirium (principal); G93.41 Metabolic encephalopathy; E44.1 Mild protein-calorie malnutrition; D61.818 Other pancytopenia; R64 Cachexia; E87.0 Hyperosmolality and hypernatremia; F31.30 Bipolar disorder, current episode depressed, mild or moderate severity, unspecified; Z68.1 Body mass index [BMI] 19.9 or less, adult; L89.212 Pressure ulcer of right hip, stage 2; K70.10 Alcoholic hepatitis without ascites; F10.220 Alcohol dependence with intoxication, uncomplicated; G40.909 Epilepsy, unspecified, not intractable, without status epilepticus; J44.9 Chronic obstructive pulmonary disease, unspecified; F60.9 Personality disorder, unspecified; Z20.822 Contact with and (suspected) exposure to COVID-19; K21.9 Gastro-esophageal reflux disease without esophagitis; M41.9 Scoliosis, unspecified; F41.9 Anxiety disorder, unspecified; F17.210 Nicotine dependence, cigarettes, uncomplicated; R47.1 Dysarthria and anarthria; R50.9 Fever, unspecified; E86.0 Dehydration; Y90.8 Blood alcohol level of 240 mg/100 ml or more; Z79.899 Other long term (current) drug therapy; Z71.3 Dietary counseling and surveillance; Z82.5 Family history of asthma and other chronic lower respiratory diseases
CPT/HCPCS: 36415; 71045; 80053; 80306; 80320; 81001; 82075; 82533; 82607; 82728; 82747; 83010; 83615; 83883; 83921; 84165; 85025; 85384; 85610; 85730; 86038; 86334; 86431; 87040; 87635; 93005; 94640; 96361; 96372; 96374; 99285

== ENCOUNTER 2020-07-05 20:20 | Emergency (ER) | payer OTHER ==
[2020-07-05 20:34] VITALS: RESP 18; TEMP 98.8
[2020-07-05] MEDS ORDERED: SODIUM CHLORIDE 0.9% 1,000 ML IV STA (20:47)
[2020-07-05] MEDS ORDERED: LORazepam 2 MG/ML INJ IV STA ×2 (20:47→22:33)
--- NOTE | 2020-07-05 20:49 | ED ---
General Adult HPI - General Chief complaint: Alcohol Stated complaint: alcohol withdrawal Time Seen by Provider: 07/05/20 20:23 Source: patient, EMS, RN notes reviewed Mode of arrival: EMS Limitations: no limitations - History of Present Illness Initial comments: Patient is a pleasant 40-year-old male presenting to the emergency department for alcohol withdrawal. Patient states last alcohol was this morning. Patient states he normally drinks up to 2 of one fifth's of alcohol daily. Patient states he has not been eating well lately and has been losing weight. Patient states he was in [facility] today and has not been drinking. Patient was trying to get off alcohol. Patient states he does have a history of previous problems with alcohol withdrawal and previous seizures. Patient complains of feeling shaky. - Related Data Home Medications Medication Instructions Recorded Confirmed Buprenorphine HCl/Naloxone HCl 1 film SL BID PRN 03/06/20 06/26/20 [Suboxone 8 mg-2 mg Sl Film] buPROPion XL [Wellbutrin XL] 300 mg PO DAILY 03/06/20 06/26/20 busPIRone HCL 15 mg PO BID 03/06/20 06/26/20 clonazePAM 0.5 mg PO HS PRN 03/06/20 06/26/20 Albuterol Sulfate [Proair Hfa] 2 puff INHALATION RT-QID PRN 06/26/20 06/26/20 Ibuprofen [Motrin] 800 mg PO Q8H PRN 06/26/20 06/26/20 Ipratropium [place] [Atrovent Hfa] 2 puff INHALATION RT-QID 06/26/20 06/26/20 Loratadine [Claritin] 10 mg PO DAILY 06/26/20 06/26/20 Omeprazole 40 mg PO BID 06/26/20 06/26/20 Previous Rx's Medication Instructions Recorded Folic Acid 1 mg PO DAILY@1200 tab 07/02/20 Multivitamins, Thera [Multivitamin 1 each PO DAILY@1200 tab 07/02/20 (formulary)] Thiamine [Vitamin B-1] 100 mg PO BID-W/MEALS tab 07/02/20 traZODone HCL [Desyrel] 100 mg PO HS PRN #30 tab 07/02/20 Allergies Allergy/AdvReac Type Severity Reaction Status Date / Time No Known Allergies Allergy Verified 07/05/20 20:34 Review of Systems ROS Statement: Those systems with pertinent positive or pertinent negative responses have been documented in the HPI. ROS Other: All systems not noted in ROS Statement are negative. Constitutional: Denies: fever Eyes: Denies: eye pain ENT: Denies: ear pain Respiratory: Denies: cough Cardiovascular: Denies: chest pain Endocrine: Denies: fatigue Gastrointestinal: Denies: abdominal pain Genitourinary: Denies: dysuria Musculoskeletal: Denies: back pain Skin: Denies: rash Neurological: Denies: weakness Psychiatric: Reports: anxiety Past Medical History Past Medical History: COPD, GERD/Reflux, Seizure Disorder Additional Past Medical History / Comment(s): Alcoholism , pt has scoliosis as a child History of Any Multi-Drug Resistant Organisms: None Reported Past Surgical History: No Surgical Hx Reported Additional Past Surgical History / Comment(s): Strabismus surgery as a child- Left eye surgery. blind in left eye Past Anesthesia/Blood Transfusion Reactions: No Reported Reaction Past Psychological History: Anxiety, Bipolar, Depression Smoking Status: Current every day smoker Past Alcohol Use History: Abuse, Daily, Heavy Past Drug Use History: None Reported - Past Family History Father Family Medical History: COPD Additional Family Medical History / Comment(s): Father is alive in his 50s with history of COPD. Sister(s) Additional Family Medical History / Comment(s): He has 5 sisters and one has drug abuse issues. Patient does not have any brothers. He has one 5-year-old daughter. Mother History Unknown: Yes Additional Family Medical History / Comment(s): Mother is alive in her 50s with no major medical problems. General Exam Limitations: no limitations General appearance: alert, in no apparent distress, other (Resting tremor is present) Head exam: Present: atraumatic Eye exam: Present: normal appearance, PERRL Neck exam: Present: normal inspection Respiratory exam: Present: normal lung sounds bilaterally Cardiovascular Exam: Present: regular rate, normal rhythm GI/Abdominal exam: Present: soft. Absent: tenderness Extremities exam: Present: normal inspection Neurological exam: Present: alert Psychiatric exam: Present: normal affect, normal mood Skin exam: Present: normal color Course Vital Signs 07/05/20 07/05/20 20:31 21:34 Temperature 98.8 F Pulse Rate 83 80 Respiratory 18 18 Rate Blood Pressure 116/88 116/80 O2 Sat by Pulse 100 98 Oximetry Medical Decision Making - Medical Decision Making Patient observed walking to and from the bathroom without any difficulty. Patient reevaluated. Patient states he still feels a little bit shaky however better than previous. Patient requests discharge home. Patient states he does have b12 and magnesium at home. Patient advised to avoid alcohol. - Lab Data Result diagrams: 07/05/20 21:28 07/05/20 21:28 Lab Results 07/05/20 07/05/20 07/05/20 Range/Units 21:28 21: 21: WBC 2.4 L (3.8-10.6) k/uL RBC 3.51 L (4.30-5.90) m/uL Hgb 10.6 L (13.0-17.5) gm/dL Hct 31.9 L (39.0-53.0) % MCV 90.8 (80.0-100.0) fL MCH 30.2 (25.0-35.0) pg MCHC 33.2 (31.0-37.0) g/dL RDW 17.8 H (11.5-15.5) % Plt Count 44 L (150-450) k/uL MPV 8.3 Neutrophils % 44 % Lymphocytes % 39 % Monocytes % 11 % Eosinophils % 2 % Basophils % 2 % Neutrophils # 1.0 L (1.3-7.7) k/uL Lymphocytes # 0.9 L (1.0-4.8) k/uL Monocytes # 0.3 (0-1.0) k/uL Eosinophils # 0.1 (0-0.7) k/uL Basophils # 0.0 (0-0.2) k/uL Manual Slide Review Performed Anisocytosis Slight PT 10.1 (9.0-12.0) sec INR 0.9 (<1.2) Sodium 138 (137-145) mmol/L Potassium 3.6 (3.5-5.1) mmol/L Chloride 102 (98-107) mmol/L Carbon Dioxide 26 (22-30) mmol/L Anion Gap 10 mmol/L BUN 13 (9-20) mg/dL Creatinine 0.56 L (0.66-1.25) mg/dL Est GFR (CKD-EPI)AfAm >90 (>60 ml/min/1.73 sqM) Est GFR (CKD-EPI)NonAf >90 (>60 ml/min/1.73 sqM) Glucose 108 H (74-99) mg/dL Calcium 8.8 (8.4-10.2) mg/dL Magnesium 1.3 L (1.6-2.3) mg/dL Total Bilirubin 0.4 (0.2-1.3) mg/dL AST 134 H (17-59) U/L ALT 274 H (4-49) U/L Alkaline Phosphatase 67 (38-126) U/L Total Protein 7.3 (6.3-8.2) g/dL Albumin 4.1 (3.5-5.0) g/dL Amylase 159 H (30-110) U/L Lipase 1264 H (23-300) U/L Serum Alcohol <10 mg/dL Disposition Clinical Impression: Alcohol withdrawal Disposition: HOME SELF-CARE Condition: Stable Instructions (If sedation given, give patient instructions): Alcohol Withdrawal (ED) Additional Instructions: Avoid alcohol. Please follow-up with primary care physician in the next day or 2 for recheck. Return for seizures, confusion, worsening or changing symptoms or other concerns. Is patient prescribed a controlled substance at d/c from ED?: No Referrals: Kam Menchaca DO [Primary Care Provider] - 1-2 days Time of Disposition: 22:34
[2020-07-05] MEDS: THIAMINE 100 MG/ML 2 ML VIAL IM STA ×2 (21:21→21:24)
[2020-07-05 21:46] LABS: African American GFR (CKD) >90 (>60 ml/min/1.73 sqM); Albumin 4.1 g/dL (3.5-5.0); Anion Gap 10 mmol/L; Blood Urea Nitrogen 13 mg/dL (9-20); Calcium 8.8 mg/dL (8.4-10.2); Carbon Dioxide 26 mmol/L (22-30); Chloride 102 mmol/L (98-107); Glucose 108 mg/dL (74-99); Magnesium 1.3 mg/dL (1.6-2.3); Non-African American GFR(CKD) >90 (>60 ml/min/1.73 sqM); Potassium 3.6 mmol/L (3.5-5.1); Sodium 138 mmol/L (137-145); Total Bilirubin 0.4 mg/dL (0.2-1.3); Total Protein 7.3 g/dL (6.3-8.2)
[2020-07-05 21:47] LABS: ALT 274 U/L (4-49); AST 134 U/L (17-59); Alcohol <10 mg/dL; Alkaline Phosphatase 67 U/L (38-126); Amylase 159 U/L (30-110); Lipase 1264 U/L (23-300)
[2020-07-05 21:51] LABS: Anisocytosis Slight; Basophils % (A) 2 %; Eosinophils # (A) 0.1 k/uL (0-0.7); Eosinophils % (A) 2 %; HCT 31.9 % (39.0-53.0); HGB 10.6 gm/dL (13.0-17.5); Lymphocytes # (A) 0.9 k/uL (1.0-4.8); Lymphocytes % (A) 39 %; MCH 30.2 pg (25.0-35.0); MCHC 33.2 g/dL (31.0-37.0); MCV 90.8 fL (80.0-100.0); Mean Platelet Volume 8.3; Monocytes # (A) 0.3 k/uL (0-1.0); Monocytes % (A) 11 %; Neutrophils % (A) 44 %; RBC 3.51 m/uL (4.30-5.90); RDW 17.8 % (11.5-15.5); WBC 2.4 k/uL (3.8-10.6)
[2020-07-05] MEDS ORDERED: MAGNESIUM SULFATE-D5W PMX 1 GM in DEXTROSE/WATER 1 100ML.BAG IVPB ONE (21:55)
[2020-07-05 22:13] LABS: INR 0.9 (<1.2); Platelet Count 44 k/uL (150-450); Prothrombin Time 10.1 sec (9.0-12.0)
[2020-07-05 22:26] VITALS: BP 116/80
[2020-07-05] MEDS ORDERED: LORazepam 1 MG TAB PO STA (22:35)
[2020-07-05 22:53] VITALS: PULSE 69
== END 2020-07-05 22:52 | disposition home or self-care (01) ==
LOC: EC 20:20
DX: F10.239 Alcohol dependence with withdrawal, unspecified (principal); J44.9 Chronic obstructive pulmonary disease, unspecified; K21.9 Gastro-esophageal reflux disease without esophagitis; G40.909 Epilepsy, unspecified, not intractable, without status epilepticus; F41.9 Anxiety disorder, unspecified; F31.9 Bipolar disorder, unspecified; Z79.51 Long term (current) use of inhaled steroids; Z79.899 Other long term (current) drug therapy
CPT/HCPCS: 36415; 80053; 82150; 83690; 83735; 85025; 85610; 99285; 96365; 96375; 96376; G0480; J2060; J3475; 80320

== ENCOUNTER 2020-08-23 23:29 | Inpatient (IN) | payer OTHER ==
--- NOTE | 2020-08-24 00:02 | ED ---
Alcohol HPI - General Chief Complaint: Alcohol Stated Complaint: ETOH Time Seen by Provider: 08/23/20 23:31 Source: patient, EMS, RN notes reviewed, old records reviewed Mode of arrival: EMS Limitations: language barrier - History of Present Illness Initial Comments: This is a 40-year-old male DF for evaluation patient Dese for evaluation regards to severe alcohol intoxication. Patient is significantly intoxicated here in the ER with history of similar medical issue. Patient also concern for alcohol withdrawal. MD Complaint: alcohol intoxication, alcohol withdrawal, alcohol dependence, desires rehab Last Drink: just DIESEL [employer]BE TECH -: minute(s) Previous Visits for Alcohol Intoxication?: Yes Recent Trauma: Yes Associated Symptoms: nausea, vomiting Treatments Prior to Arrival: none Chronic Alcohol Use: Yes - Related Data Home Medications Medication Instructions Recorded Confirmed Buprenorphine HCl/Naloxone HCl 1 film SL BID PRN 03/06/20 08/26/20 [Suboxone 8 mg-2 mg Sl Film] Albuterol Sulfate [Proair Hfa] 2 puff INHALATION RT-QID PRN 06/26/20 08/26/20 Ibuprofen [Motrin] 800 mg PO Q8H PRN 06/26/20 08/26/20 Loratadine [Claritin] 10 mg PO DAILY PRN 06/26/20 08/26/20 Previous Rx's Medication Instructions Recorded Acetaminophen Tab [Tylenol] 650 mg PO Q4HR PRN tab 08/31/20 DULoxetine HCL [Cymbalta] 60 mg PO DAILY 30 Days capsule. 08/31/20 Multivitamins, Thera [Multivitamin 1 each PO DAILY 30 Days tab 08/31/20 (formulary)] Nicotine 14Mg/24Hr Patch [Habitrol] 1 patch TRANSDERM DAILY 14 Days 08/31/20 patch Pantoprazole [Protonix] 40 mg PO DAILY 30 Days tablet. 08/31/20 Thiamine [Vitamin B-1] 100 mg PO DAILY 30 Days tab 08/31/20 busPIRone HCL 15 mg PO BID 30 Days tab 08/31/20 traZODone HCL [Desyrel] 200 mg PO HS 30 Days tab 08/31/20 Allergies Allergy/AdvReac Type Severity Reaction Status Date / Time No Known Allergies Allergy Verified 08/26/20 11:41 Review of Systems ROS Statement: Those systems with pertinent positive or pertinent negative responses have been documented in the HPI. ROS Other: All systems not noted in ROS Statement are negative. Past Medical History Past Medical History: COPD, GERD/Reflux, Seizure Disorder Additional Past Medical History / Comment(s): Alcoholism , pt has scoliosis as a child History of Any Multi-Drug Resistant Organisms: None Reported Past Surgical History: No Surgical Hx Reported Additional Past Surgical History / Comment(s): Strabismus surgery as a child- Left eye surgery. blind in left eye Past Anesthesia/Blood Transfusion Reactions: No Reported Reaction Past Psychological History: Anxiety, Bipolar, Depression Smoking Status: Current every day smoker Past Alcohol Use History: Abuse, Daily, Heavy Past Drug Use History: None Reported - Past Family History Father Family Medical History: COPD Additional Family Medical History / Comment(s): Father is alive in his 50s with history of COPD. Sister(s) Additional Family Medical History / Comment(s): He has 5 sisters and one has drug abuse issues. Patient does not have any brothers. He has one 5-year-old daughter. Mother History Unknown: Yes Additional Family Medical History / Comment(s): Mother is alive in her 50s with no major medical problems. General Exam Limitations: language barrier General appearance: alert, in no apparent distress Head exam: Present: atraumatic, normocephalic, normal inspection Eye exam: Present: normal appearance, PERRL, EOMI. Absent: scleral icterus, conjunctival injection, periorbital swelling ENT exam: Present: normal exam, mucous membranes moist Neck exam: Present: normal inspection. Absent: tenderness, meningismus, lymphadenopathy Respiratory exam: Present: normal lung sounds bilaterally. Absent: respiratory distress, wheezes, rales, rhonchi, stridor Cardiovascular Exam: Present: regular rate, normal rhythm, normal heart sounds. Absent: systolic murmur, diastolic murmur, rubs, gallop, clicks GI/Abdominal exam: Present: soft, normal bowel sounds. Absent: distended, tenderness, guarding, rebound, rigid Extremities exam: Present: normal inspection, full ROM, normal capillary refill. Absent: tenderness, pedal edema, joint swelling, calf tenderness Back exam: Present: normal inspection Neurological exam: Present: alert, oriented X3, CN II-XII intact Psychiatric exam: Present: normal affect, normal mood Skin exam: Present: warm, dry, intact, normal color. Absent: rash Course Vital Signs 08/23/20 08/24/20 08/24/20 23:32 00:54 01:00 Temperature 98.0 F Pulse Rate 96 101 H 99 Respiratory 16 16 16 Rate Blood Pressure 129/93 113/74 118/90 O2 Sat by Pulse 95 99 99 Oximetry 08/24/20 08/24/20 02:00 03:00 Temperature Pulse Rate 98 97 Respiratory 16 16 Rate Blood Pressure 119/81 122/94 O2 Sat by Pulse 98 98 Oximetry - Reevaluation(s) Reevaluation #1: Medical record is reviewed Patient symptoms are significantly improved here in the emergency department Patient family informed of results, questions answered Medical Decision Making - Medical Decision Making 40 male with significant history of alcohol abuse. Again alcohol intoxication, patient be admitted for electrolyte replacement and management - Lab Data Result diagrams: 08/25/20 07:15 08/25/20 07:15 Lab Results 08/24/20 08/24/20 08/24/20 Range/Units 00:41 00:41 00:41 WBC 2.3 L (3.8-10.6) k/uL RBC 5.07 (4.30-5.90) m/uL Hgb 15.5 D (13.0-17.5) gm/dL Hct 44.8 (39.0-53.0) % MCV 88.5 (80.0-100.0) fL MCH 30.6 (25.0-35.0) pg MCHC 34.6 (31.0-37.0) g/dL RDW 15.0 (11.5-15.5) % Plt Count 67 L D (150-450) k/uL MPV 8.6 Neutrophils % 54 % Lymphocytes % 37 % Monocytes % 6 % Eosinophils % 1 % Basophils % 1 % Neutrophils # 1.3 (1.3-7.7) k/uL Lymphocytes # 0.9 L (1.0-4.8) k/uL Monocytes # 0.1 (0-1.0) k/uL Eosinophils # 0.0 (0-0.7) k/uL Basophils # 0.0 (0-0.2) k/uL Manual Slide Review Performed Target Cells Present PT 9.9 (9.0-12.0) sec INR 0.9 (<1.2) Sodium 139 (137-145) mmol/L Potassium 4.7 (3.5-5.1) mmol/L Chloride 92 L (98-107) mmol/L Carbon Dioxide 24 (22-30) mmol/L Anion Gap 23 mmol/L BUN 18 (9-20) mg/dL Creatinine 0.69 (0.66-1.25) mg/dL Est GFR (CKD-EPI)AfAm >90 (>60 ml/min/1.73 sqM) Est GFR (CKD-EPI)NonAf >90 (>60 ml/min/1.73 sqM) Glucose 95 (74-99) mg/dL Calcium 8.9 (8.4-10.2) mg/dL Phosphorus 2.8 (2.5-4.5) mg/dL Magnesium 1.8 (1.6-2.3) mg/dL Total Bilirubin 0.7 (0.2-1.3) mg/dL AST 240 H (17-59) U/L ALT 93 H (4-49) U/L Alkaline Phosphatase 68 (38-126) U/L Total Protein 9.0 H (6.3-8.2) g/dL Albumin 5.2 H (3.5-5.0) g/dL Lipase 279 (23-300) U/L Serum Alcohol mg/dL Disposition Clinical Impression: Alcohol intoxication, Alcohol use disorder, severe, in sustained remission Disposition: ADMITTED IP TO THIS HOSP Condition: Fair Is patient prescribed a controlled substance at d/c from ED?: No
[2020-08-24] MEDS ORDERED: SODIUM CHLORIDE 0.9% 500 ML 500 ML IV STA (00:11)
[2020-08-24] MEDS ORDERED: SODIUM CHLORIDE 0.9% 1,000 ML IV STA ×2 (00:11)
[2020-08-24] MEDS ORDERED: LORazepam 2 MG/ML INJ IV STA (00:11)
[2020-08-24] MEDS ORDERED: LORazepam 2 MG/ML INJ IV PRN (00:12)
[2020-08-24] MEDS ORDERED: THIAMINE 200 MG in SODIUM CHLORIDE 0.9% 100 ML IVPB ONE (00:30)
[2020-08-24] MEDS ORDERED: THIAMINE 100 MG/ML 2 ML VIAL IVPB ONE (00:30)
[2020-08-24] MEDS: DEXTROSE 5%-0.45% NACL 1,000 ML IV SCH ×3 (00:48→20:50)
[2020-08-24 01:23] LABS: Basophils % (A) 1 %; Eosinophils % (A) 1 %; HCT 44.8 % (39.0-53.0); Lymphocytes # (A) 0.9 k/uL (1.0-4.8); Lymphocytes % (A) 37 %; MCH 30.6 pg (25.0-35.0); MCHC 34.6 g/dL (31.0-37.0); MCV 88.5 fL (80.0-100.0); Mean Platelet Volume 8.6; Monocytes # (A) 0.1 k/uL (0-1.0); Monocytes % (A) 6 %; Neutrophils # (A) 1.3 k/uL (1.3-7.7); Neutrophils % (A) 54 %; RBC 5.07 m/uL (4.30-5.90); WBC 2.3 k/uL (3.8-10.6)
[2020-08-24 01:33] LABS: ALT 93 U/L (4-49); AST 240 U/L (17-59); African American GFR (CKD) >90 (>60 ml/min/1.73 sqM); Albumin 5.2 g/dL (3.5-5.0); Alkaline Phosphatase 68 U/L (38-126); Anion Gap 23 mmol/L; Blood Urea Nitrogen 18 mg/dL (9-20); Calcium 8.9 mg/dL (8.4-10.2); Carbon Dioxide 24 mmol/L (22-30); Chloride 92 mmol/L (98-107); Glucose 95 mg/dL (74-99); Lipase 279 U/L (23-300); Magnesium 1.8 mg/dL (1.6-2.3); Non-African American GFR(CKD) >90 (>60 ml/min/1.73 sqM); Phosphorus 2.8 mg/dL (2.5-4.5); Potassium 4.7 mmol/L (3.5-5.1); Sodium 139 mmol/L (137-145); Total Bilirubin 0.7 mg/dL (0.2-1.3)
[2020-08-24 01:34] LABS: INR 0.9 (<1.2); Prothrombin Time 9.9 sec (9.0-12.0)
[2020-08-24 01:44] LABS: HGB 15.5 gm/dL (13.0-17.5)
[2020-08-24] MEDS ORDERED: ONDANSETRON 4 MG/2 ML VIAL IVP PRN (02:34)
[2020-08-24] MEDS ORDERED: MORPHINE SULFATE 4 MG/ML SYRINGE IV PRN (02:34)
[2020-08-24] MEDS ORDERED: NALOXONE 0.4 MG/ML 1 ML VIAL IV PRN (02:34)
[2020-08-24 02:49] LABS: Target Cells Present
[2020-08-24 02:50] LABS: Platelet Count 67 k/uL (150-450)
[2020-08-24] MEDS: MULTIVITAMINS, THERA 1 EACH TAB PO SCH (08:56)
[2020-08-24] MEDS: HEPARIN SODIUM,PORCINE/PF 5,000 UNIT/0.5 ML SYRINGE SQ SCH ×3 (08:56→19:31)
[2020-08-24] MEDS ORDERED: PANTOPRAZOLE 40 MG/10 ML VIAL IV SCH (09:00)
[2020-08-24] MEDS: LORazepam 2 MG/ML INJ IV PRN ×5 (09:06→23:26)
--- NOTE | 2020-08-24 14:08 | P.CN ---
Psychiatric Consult - . Consult date: 08/24/20 Consult:: 08/24/20 12:40 IDENTIFYING DATA: Patient is a 40-year-old male with a long history of alcohol use who is currently single lives with his friend in an apartment and has a daughter HPI: Patient presented to the hospital yesterday with the complaints of relapse on drinking alcohol and going through withdrawals. According to ER report patient had a blood alcohol level that was in the critical level and AST/ALT which were elevated. Patient was seen at the bedside and her sheets covering his face and was slow to respond and appeared to have tremors in his hands bilaterally. Patient appeared to be disheveled in appearance and poor hygiene and grooming. He claims that he is in the hospital for "drinking alcohol" and states that he's been drinking 2-3 fifths of vodka daily. He states that he has been doing this for 3 years on and off. He states that since discharge last time from the hospital he was sober for about 1 month. States that currently he is feeling anxious and was requesting Ativan during the interview. He states that he is also "hallucinating" when he closes his eyes he feels that he has a in a different place. He states that he is not been through any kind of drug treatment recently. He states that his mood is "fair" and is denying any current depression. He states that his sleep has been "on and off". He is denying any current stressors and claims that his appetite is fair. Patient den ies any suicidal or homicidal ideations intent or plan. At this time patient denies any auditory hallucinations. Patient denies any flight of ideas racing thoughts and increased in goal directed behavior. Drinks alcohol as stated above. Patient denies any other recreational drug use and admits to smoking cigarettes 1 pack per day. PAST PSYCHIATRIC HISTORY: Patient states that he has a history of depression and anxiety and polysubstance use. Patient has been hospitalized in psychiatric units many times and was last admitted to the mental health floor in March 2019. Patient is open with [facility] however claims that he has not been going to his appointments. Patient has been on multiple antidepressants and benzodiazepines, trazodone and BuSpar in the past and has a history of manipulation and drug seeking behaviors. Patient denies any previous history of suicide attempts PMH: COPD, GERD, seizures ALLERGIES: as per EMR CHEMICAL DEPENDENCY HISTORY: as per HPI FAMILY PSYCHIATRIC/SUBSTANCE USE HISTORY: denies SOCIAL HISTORY: He states that he was born and raised in [place] on and also in [place]. Patient currently lives in [place] with his friend/roommate in an apartment. Patient graduated from high school. Patient has one daughter who is 8 years old. MENTAL STATUS EXAM: General Appearance: Patient appears to be older than stated age is alert, attempts to be and disheveled. Shaking/tremor in his hands. Behavior: Patient is calmly laying in the bed without any agitated behavior. Attempts to be cooperative. Speech: Patient's speech is fluent and nonpressured. Trembling voice. Mood/Affect: Patient reports their mood is "fair" denies any depression or anxiety today, affect is congruent and constricted Suicidality/Homicidality: Patient denies having any suicidal or homicidal ideation intent or plan. Perceptions: Patient denies any auditory or visual hallucinations. Thought content/process: There is no evidence of any delusional thought content, patient is preoccupied with medications including controlled substances. Memory and concentration: AOX1-2, and that he does not know today's date, grossly intact for the purposes of this session. Cannot spell "WORLD" backwards Judgment and insight: chronically poor/superficial IMPRESSIONS: History of depressive disorder Alcohol abuse, currently in withdrawal Nicotine dependence Personality disorder unspecified likely cluster B PLAN: -At this time patient DOES NOT meet criteria for inpatient psychiatric admission currently however will continue to follow patient while on the medical floor to see if he requires inpatient psychiatric hospitalization. -Would recommend the following medication changes/additions: Started scheduled Librium 20 mg 3 times a day for alcohol withdrawal and can taper within the next 2 days. Continue with CIWA protocol with when necessary Ativan. Started trazodone 50 mg daily at bedtime for insomnia/mood. resume buspar 15 mg bid for anxiety. started campral for etoh cravings. -C[employer]umper spoke with patient about substance abuse and the harmful effects on medical and mental health, patient verbally understood and agreed. -drug worker to provide patient substance use treatment resources including AA/NA meetings in the community. drug worker to provide patient with access line number to call for inpatient substance rehab as patient states that he would like to go back to rehab upon discharge -At this time psychiatry will sign off. -Please contact with any questions.
[2020-08-24 14:50] VITALS: BMI 16.8
[2020-08-24] MEDS: busPIRone HCl 5 MG TAB PO SCH ×2 (15:25→19:19)
[2020-08-24] MEDS: ACAMPROSATE CALCIUM 333 MG TABLET.DR PO SCH ×2 (15:25→21:51)
[2020-08-24] MEDS: THIAMINE 100 MG TAB PO SCH (17:27)
[2020-08-24] MEDS ORDERED: traZODone HCL 50 MG TAB PO SCH (21:00)
--- NOTE | 2020-08-24 22:51 | P.HPIM ---
History of Present Illness H&P Date: 08/24/20 Chief Complaint: Acute alcohol intoxication Patient is a 40-year-old male with a known history of COPD, seizure disorder, alcohol abuse, COPD and currently everyday smoker, anxiety/depression and bipolar disorder and heavy alcohol use on daily basis presents to ER with alcoh ol intoxication. Patient says that he feels very anxious and wants IV Ativan. Denies any complaints of chest pain or shortness of breath. does complain of nausea. No episodes of vomiting. Vitals on admission blood pressure 113/74 and her pulse is 101 respirations 16 and pulse ox 99% on 2 L oxygen via nasal cannula. Laboratory data showed WBC 2.3 hemoglobin 15.5 and platelets 67 lymphocytes 0.9 COVID-19 PCR not detected AST 240 ALT 93 and lipase 279 Review of Systems Complete review of systems could not be obtained from the patient at this time. Past Medical History Past Medical History: COPD, GERD/Reflux, Seizure Disorder Additional Past Medical History / Comment(s): Alcoholism , pt has scoliosis as a child History of Any Multi-Drug Resistant Organisms: None Reported Past Surgical History: No Surgical Hx Reported Additional Past Surgical History / Comment(s): Strabismus surgery as a child-Left eye surgery. blind in left eye Past Anesthesia/Blood Transfusion Reactions: No Reported Reaction Past Psychological History: Anxiety, Bipolar, Depression Smoking Status: Current every day smoker Past Alcohol Use History: Abuse, Daily, Heavy Additional Past Alcohol Use History / Comment(s): Patient is a smoker one pack per day since he was 15 years of age. He denies any street drug or marijuana use. 4-5 pints a day Past Drug Use History: None Reported Additional Drug Use History / Comment(s): fentanyl- use 03-19-19. - Past Family History Father Family Medical History: COPD Additional Family Medical History / Comment(s): Father is alive in his 50s with history of COPD. Sister(s) Additional Family Medical History / Comment(s): He has 5 sisters and one has drug abuse issues. Patient does not have any brothers. He has one 5-year-old daughter. Mother History Unknown: Yes Additional Family Medical History / Comment(s): Mother is alive in her 50s with no major medical problems. Medications and Allergies Home Medications Medication Instructions Recorded Confirmed Type Buprenorphine HCl/Naloxone HCl 1 film SL BID PRN 03/06/20 08/24/20 History [Suboxone 8 mg-2 mg Sl Film] busPIRone HCL 15 mg PO BID 03/06/20 08/24/20 History clonazePAM 0.5 mg PO HS 03/06/20 08/24/20 History Albuterol Sulfate [Proair Hfa] 2 puff INHALATION RT-QID PRN 06/26/20 08/24/20 History Ibuprofen [Motrin] 800 mg PO Q8H PRN 06/26/20 08/24/20 History Ipratropium [place] [Atrovent Hfa] 2 puff INHALATION RT-QID PRN 06/26/20 08/24/20 History Loratadine [Claritin] 10 mg PO DAILY PRN 06/26/20 08/24/20 History Docusate [Colace] 100 mg PO TID 08/24/20 08/24/20 History Multivitamins, Thera [Multivitamin 1 tab PO DAILY 08/24/20 08/24/20 History (formulary)] Omeprazole Magnesium [PriLOSEC] 20 mg PO DAILY 08/24/20 08/24/20 History traZODone HCL 300 mg PO HS 08/24/20 08/24/20 History Allergies Allergy/AdvReac Type Severity Reaction Status Date / Time No Known Allergies Allergy Verified 07/05/20 20:34 Physical Exam Vitals: Vital Signs Temp Pulse Pulse Resp BP BP Pulse Ox 08/24/20 04:02 98 F 86 18 129/72 100 08/24/20 03:00 97 16 122/94 98 08/24/20 02:00 98 16 119/81 98 08/24/20 01:00 99 16 118/90 99 08/24/20 00:54 101 H 16 113/74 99 08/23/20 23:32 98.0 F 96 16 129/93 95 Intake and Output 08/23/20 08/24/20 08/24/20 22:59 06:59 14:59 Other: Voiding Method Urinal # Voids 1 Weight 47.3 kg PHYSICAL EXAMINATION: Patient is lying in the bed comfortably, no acute distress, awake alert . Patient is shaky and lethargic... HEENT: Normocephalic. Neck is supple. Pupils reactive. Nostrils clear. Oral cavity is moist. Ears reveal no drainage. Neck reveals no JVD, carotid bruits, or thyromegaly. CHEST EXAMINATION: Trachea is central. Symmetrical expansion. Lung carson clear to auscultation and percussion. CARDIAC: Normal S1, S2 with no gallops. No murmurs ABDOMEN: Soft. Bowel sounds normal. No organomegaly. No abdominal bruits. Extremities: reveal no edema. No clubbing or cyanosis Neurologically awake, alert, oriented x2-3 with well-coordinated movements. No focal deficits noted Skin: No rash or skin lesions. Psychiatric: Coperative. Nonsuicidal Musculoskeletal: No joint swelling or deformity. Normal range of motion. Results CBC & Chem 7: 08/24/20 00:41 08/24/20 00:41 Labs: Abnormal Lab Results - Last 24 Hours (Table) 08/24/20 08/24/20 Range/Units 00:41 00:41 WBC 2.3 L (3.8-10.6) k/uL Plt Count 67 L D (150-450) k/uL Lymphocytes # 0.9 L (1.0-4.8) k/uL Chloride 92 L (98-107) mmol/L AST 240 H (17-59) U/L ALT 93 H (4-49) U/L Total Protein 9.0 H (6.3-8.2) g/dL Albumin 5.2 H (3.5-5.0) g/dL Thrombosis Risk Factor Assmnt - DVT/VTE Prophylaxis DVT/VTE Prophylaxis: Pharmacologic Prophylaxis ordered - Choose All That Apply Any of the Below Risk Factors Present?: Yes Each Factor Represents 1 point: Abnormal pulmonary function (COPD), Age 41-60 years Thrombosis Risk Factor Assessment Total Risk Factor Score: 2 Thrombosis Risk Factor Assessment Level: Low Risk Assessment and Plan Assessment: Acute alcohol intoxication Anxiety/depression bipolar disorder Acute alcohol hepatitis AST greater than ALT Neutropenia and thrombocytopenia likely due to alcohol abuse COPD Ongoing nicotine addiction History of seizure disorder Currently everyday smoker Heavy alcohol abuse DVT prophylaxis with heparin subcu Plan: Patient will be continued on alcohol withdrawal protocol. Continue with IV hydration with D5 half-normal saline and encourage oral intake. Continue with thiamine and multivitamins. Psychiatry was consulted due to bipolar disorder. Monitor electrolytes and follow-up closely. Replace electrolytes and further recommendations based on the clinical course. Time with Patient: Greater than 30
[2020-08-25] MEDS: LORazepam 2 MG/ML INJ IV PRN ×4 (01:40→17:05)
[2020-08-25] MEDS: DEXTROSE 5%-0.45% NACL 1,000 ML IV SCH ×2 (05:35→14:46)
[2020-08-25] MEDS ORDERED: PANTOPRAZOLE 40 MG TABLET PO SCH (07:30)
[2020-08-25] MEDS: THIAMINE 100 MG TAB PO SCH ×2 (07:40→17:01)
[2020-08-25] MEDS: MULTIVITAMINS, THERA 1 EACH TAB PO SCH (07:40)
[2020-08-25] MEDS: HEPARIN SODIUM,PORCINE/PF 5,000 UNIT/0.5 ML SYRINGE SQ SCH (07:40)
[2020-08-25] MEDS: busPIRone HCl 5 MG TAB PO SCH (07:40)
[2020-08-25 08:00] LABS: Basophils % (A) 1 %; Eosinophils % (A) 1 %; HCT 35.1 % (39.0-53.0); Lymphocytes # (A) 1.1 k/uL (1.0-4.8); Lymphocytes % (A) 64 %; MCH 31.3 pg (25.0-35.0); MCV 89.4 fL (80.0-100.0); Mean Platelet Volume 9.7; Monocytes # (A) 0.1 k/uL (0-1.0); Monocytes % (A) 3 %; Neutrophils # (A) 0.5 k/uL (1.3-7.7); Neutrophils % (A) 29 %; RBC 3.92 m/uL (4.30-5.90); RDW 14.7 % (11.5-15.5); WBC 1.8 k/uL (3.8-10.6)
[2020-08-25 08:25] LABS: HGB 12.3 gm/dL (13.0-17.5)
[2020-08-25 08:26] LABS: ALT 75 U/L (4-49); AST 217 U/L (17-59); African American GFR (CKD) >90 (>60 ml/min/1.73 sqM); Albumin 3.3 g/dL (3.5-5.0); Alkaline Phosphatase 45 U/L (38-126); Anion Gap 4 mmol/L; Blood Urea Nitrogen 12 mg/dL (9-20); Calcium 8.6 mg/dL (8.4-10.2); Carbon Dioxide 29 mmol/L (22-30); Chloride 98 mmol/L (98-107); Glucose 90 mg/dL (74-99); Magnesium 1.2 mg/dL (1.6-2.3); Non-African American GFR(CKD) >90 (>60 ml/min/1.73 sqM); Phosphorus 1.9 mg/dL (2.5-4.5); Platelet Count 34 k/uL (150-450); Sodium 131 mmol/L (137-145); Total Bilirubin 0.7 mg/dL (0.2-1.3); Total Protein 6.1 g/dL (6.3-8.2)
[2020-08-25] MEDS: ACAMPROSATE CALCIUM 333 MG TABLET.DR PO SCH ×2 (08:32→17:01)
[2020-08-25] MEDS ORDERED: Magnesium Replacement Protocol 1 EACH MISC MISCELLANE PRN (11:26)
[2020-08-25] MEDS ORDERED: Potassium Replacement Protocol 1 EACH MISC MISCELLANE PRN (11:26)
[2020-08-25] MEDS: MAGNESIUM SULFATE-D5W PMX 1 GM in DEXTROSE/WATER 1 100ML.BAG IVPB SCH ×3 (11:43→17:00)
[2020-08-25] MEDS: POTASSIUM CHLORIDE ER 20 MEQ TAB.ER PO SCH ×3 (13:21→17:01)
[2020-08-25 14:13] VITALS: BP 106/62; PULSE 76; RESP 16; TEMP 98.1
--- NOTE | 2020-08-26 00:23 | P.PN ---
Subjective Progress Note Date: 08/25/20 Patient is a 40-year-old male with a known history of COPD, seizure disorder, alcohol abuse, COPD and currently everyday smoker, anxiety/depression and bipolar disorder and heavy alcohol use on daily basis presents to ER with alcohol intoxication. Patient says that he feels very anxious and wants IV Ativan. Denies any complaints of chest pain or shortness of breath. does complain of nausea. No episodes of vomiting. Vitals on admission blood pressure 113/74 and her pulse is 101 respirations 16 and pulse ox 99% on 2 L oxygen via nasal cannula. Laboratory data showed WBC 2.3 hemoglobin 15.5 and platelets 67 lymphocytes 0.9 COVID-19 PCR not detected AST 240 ALT 93 and lipase 279 08/25/2020 Patient is currently lying in the bed. Lethargic and shaky. Patient denied any complaints of chest pain or shortness of breath. Very poor historian. No complaints of nausea vomiting abdominal pain or diarrhea. Patient was seen by psychiatry and recommends no inpatient psychiatric admission at this time. Patient was started on Librium trazodone and continue with BuSpar. Patient will be continued alcohol withdrawal protocol. Laboratory showed WBC 1.8 hemoglobin 12.3 and platelets 24 and sodium 131 po tassium 3.0 magnesium 1.2 phosphorus 1.9 AST 217 ALT 75 and alk phos 45 Patient is able to tolerate liquid diet and advance as tolerated. Current medications reviewed. Objective - Vital Signs Vital signs: Vital Signs Temp 98.1 F 08/25/20 14:06 Pulse 76 08/25/20 14:06 Resp 16 08/25/20 14:06 BP 106/62 08/25/20 14:06 Pulse Ox 100 08/25/20 14:06 Intake & Output 08/25/20 08/25/20 08/26/20 06:59 18:59 06:59 Intake Total 1040 Balance 1040 Intake: Intake, IV Titration 800 Amount Dextrose 5%-0.45% NaCl 1, 800 000 ml @ 100 mls/hr IV . Q10H [facility] Rx#:[id number] Oral 240 Other: Voiding Method Urinal Urinal # Voids 1 1 # Bowel Movements 1 - Exam PHYSICAL EXAMINATION: Patient is lying in the bed comfortably, no acute distress, awake alert . Patient is shaky and lethargic... HEENT: Normocephalic. Neck is supple. Pupils reactive. Nostrils clear. Oral cavity is moist. Ears reveal no drainage. Neck reveals no JVD, carotid bruits, or thyromegaly. CHEST EXAMINATION: Trachea is central. Symmetrical expansion. Lung carson clear to auscultation and percussion. CARDIAC: Normal S1, S2 with no gallops. No murmurs ABDOMEN: Soft. Bowel sounds normal. No organomegaly. No abdominal bruits. Extremities: reveal no edema. No clubbing or cyanosis Neurologically awake, alert, oriented x2-3 with well-coordinated movements. No focal deficits noted Skin: No rash or skin lesions. Psychiatric: Coperative. Nonsuicidal Musculoskeletal: No joint swelling or deformity. Normal range of motion. - Labs CBC & Chem 7: 08/25/20 07:15 08/25/20 07:15 Labs: Abnormal Lab Results - Last 24 Hours (Table) 08/25/20 08/25/20 Range/Units 07:15 07:15 WBC 1.8 L (3.8-10.6) k/uL RBC 3.92 L (4.30-5.90) m/uL Hgb 12.3 L D (13.0-17.5) gm/dL Hct 35.1 L (39.0-53.0) % Plt Count 34 L (150-450) k/uL Neutrophils # 0.5 L (1.3-7.7) k/uL Sodium 131 L (137-145) mmol/L Potassium 3.0 L (3.5-5.1) mmol/L Creatinine 0.51 L (0.66-1.25) mg/dL Phosphorus 1.9 L (2.5-4.5) mg/dL Magnesium 1.2 L (1.6-2.3) mg/dL AST 217 H (17-59) U/L ALT 75 H (4-49) U/L Total Protein 6.1 L (6.3-8.2) g/dL Albumin 3.3 L (3.5-5.0) g/dL Assessment and Plan Assessment: Acute alcohol intoxication Anxiety/depression bipolar disorder Acute alcohol hepatitis AST greater than ALT Severe hypokalemia and hypomagnesemia Neutropenia and thrombocytopenia likely due to alcohol abuse COPD Ongoing nicotine addiction History of seizure disorder Currently everyday smoker Heavy alcohol abuse DVT prophylaxis with heparin subcu Plan: Patient will be continued on alcohol withdrawal protocol. Continue with IV hydration with D5 half-normal saline and encourage oral intake. Continue with thiamine and multivitamins. Psychiatry was consulted due to bipolar disorder. No inpatient psychiatric admission was recommended. Replace magnesium potassium and phosphorus. Monitor electrolytes and follow-up closely. Replace electrolytes and further recommendations based on the clinical course. Time with Patient: Greater than 30
--- NOTE | 2020-08-27 14:23 | P.DS ---
Providers Date of admission: 08/24/20 02:34 Expected date of discharge: 08/25/20 Attending physician: Lisa Rahman Consults: 08/24/20 06:02 Consult Physician Routine Consulting Provider: Nitin Jain Consult Reason/Comments: alcoholic, bipolar Do you want consulting provider notified?: Yes, Notify in am [facility] Course: Discharge diagnosis Acute alcohol intoxication Anxiety/depression bipolar disorder Acute alcohol hepatitis AST greater than ALT Severe hypokalemia and hypomagnesemia Neutropenia and thrombocytopenia likely due to alcohol abuse COPD Ongoing nicotine addiction History of seizure disorder Currently everyday smoker Heavy alcohol abuse DVT prophylaxis with heparin subcu Hospital course Patient is a 40-year-old male with a known history of COPD, seizure disorder, alcohol abuse, COPD and currently everyday smoker, anxiety/depression and bipolar disorder and heavy alcohol use on daily basis presents to ER with alcohol intoxication. Patient says that he feels very anxious and wants IV Ativan. Denies any complaints of chest pain or shortness of breath. does complain of nausea. No episodes of vomiting. Vitals on admission blood pressure 113/74 and her pulse is 101 respirations 16 and pulse ox 99% on 2 L oxygen via nasal cannula. Laboratory data showed WBC 2.3 hemoglobin 15.5 and platelets 67 lymphocytes 0.9 COVID-19 PCR not detected AST 240 ALT 93 and lipase 279 08/25/2020 Patient is currently lying in the bed. Lethargic and shaky. Patient denied any complaints of chest pain or shortness of breath. Very poor historian. No complaints of nausea vomiting abdominal pain or diarrhea. Patient was seen by psychiatry and recommends no inpatient psychiatric admission at this time. Patient was started on Librium trazodone and continue with BuSpar. Patient will be continued alcohol withdrawal protocol. Laboratory showed WBC 1.8 hemoglobin 12.3 and platelets 24 and sodium 131 potassium 3.0 magnesium 1.2 phosphorus 1.9 AST 217 ALT 75 and alk phos 45 Patient is able to tolerate liquid diet and advance as tolerated. Patient left AMA Patient Condition at Discharge: Fair Plan - Discharge Summary Discharge Rx Participant: No New Discharge Prescriptions: No Action clonazePAM 0.5 mg PO HS busPIRone HCL 15 mg PO BID Buprenorphine HCl/Naloxone HCl [Suboxone 8 mg-2 mg Sl Film] 1 film SL BID PRN PRN Reason: ADDICTION Albuterol Sulfate [Proair Hfa] 2 puff INHALATION RT-QID PRN PRN Reason: Shortness Of Breath Loratadine [Claritin] 10 mg PO DAILY PRN PRN Reason: Allergy Symptoms Ibuprofen [Motrin] 800 mg PO Q8H PRN PRN Reason: Pain Or Fever > 100.5 Ipratropium [place] [Atrovent Hfa] 2 puff INHALATION RT-QID PRN PRN Reason: Shortness Of Breath Omeprazole Magnesium [PriLOSEC] 20 mg PO DAILY Multivitamins, Thera [Multivitamin (formulary)] 1 tab PO DAILY Docusate [Colace] 100 mg PO TID traZODone HCL 300 mg PO HS Discharge Medication List Buprenorphine HCl/Naloxone HCl [Suboxone 8 mg-2 mg Sl Film] 1 film SL BID PRN 03/06/20 [History] busPIRone HCL 15 mg PO BID 03/06/20 [History] clonazePAM 0.5 mg PO HS 03/06/20 [History] Albuterol Sulfate [Proair Hfa] 2 puff INHALATION RT-QID PRN 06/26/20 [History] Ibuprofen [Motrin] 800 mg PO Q8H PRN 06/26/20 [History] Ipratropium [place] [Atrovent Hfa] 2 puff INHALATION RT-QID PRN 06/26/20 [History] Loratadine [Claritin] 10 mg PO DAILY PRN 06/26/20 [History] Docusate [Colace] 100 mg PO TID 08/24/20 [History] Multivitamins, Thera [Multivitamin (formulary)] 1 tab PO DAILY 08/24/20 [History] Omeprazole Magnesium [PriLOSEC] 20 mg PO DAILY 08/24/20 [History] traZODone HCL 300 mg PO HS 08/24/20 [History] Follow up Appointment(s)/Referral(s): Kam Menchaca DO [Primary Care Provider] - 1-2 days Discharge Disposition: Left Against Medical Advice
== END 2020-08-25 19:23 | disposition left against medical advice (07) | DRG 433 ==
LOC: EC 23:29 → 1SOBS 08-24 02:34
PROVIDERS: ADMIT Hospitalist; ATTEND Hospitalist
DX: K70.10 Alcoholic hepatitis without ascites (principal); F10.239 Alcohol dependence with withdrawal, unspecified; F10.229 Alcohol dependence with intoxication, unspecified; J44.9 Chronic obstructive pulmonary disease, unspecified; K21.9 Gastro-esophageal reflux disease without esophagitis; G40.909 Epilepsy, unspecified, not intractable, without status epilepticus; H54.62 Unqualified visual loss, left eye, normal vision right eye; F17.200 Nicotine dependence, unspecified, uncomplicated; F31.9 Bipolar disorder, unspecified; F41.9 Anxiety disorder, unspecified; M41.9 Scoliosis, unspecified; E87.6 Hypokalemia; E83.42 Hypomagnesemia; D69.59 Other secondary thrombocytopenia; Z20.822 Contact with and (suspected) exposure to COVID-19; D70.9 Neutropenia, unspecified; Z79.899 Other long term (current) drug therapy; Z83.6 Family history of other diseases of the respiratory system
CPT/HCPCS: 36415; 80053; 80320; 83690; 83735; 84100; 85025; 85610; 87635; 96361; 96374; 99285

== ENCOUNTER 2020-08-26 06:57 | Inpatient (IN) | payer MEDICAID, OTHER ==
--- NOTE | 2020-08-26 07:20 | ED ---
Psych HPI - General Chief Complaint: Psychiatric Symptoms Stated Complaint: Mental health Time Seen by Provider: 08/26/20 07:03 Source: patient, RN notes reviewed Mode of arrival: ambulatory Limitations: no limitations - History of Present Illness Initial Comments: 40-year-old male presents emergency Department with chief complaint of depression, suicidal ideation. Patient was recently discharged from the hospital after alcohol intoxication. Patient states he went home started drinking. He states that he does want to harm himself denies any drug use denies being homicidal. - Related Data Home Medications Medication Instructions Recorded Confirmed Buprenorphine HCl/Naloxone HCl 1 film SL BID PRN 03/06/20 08/26/20 [Suboxone 8 mg-2 mg Sl Film] busPIRone HCL 15 mg PO BID 03/06/20 08/26/20 clonazePAM 0.5 mg PO HS 03/06/20 08/26/20 Albuterol Sulfate [Proair Hfa] 2 puff INHALATION RT-QID PRN 06/26/20 08/26/20 Ibuprofen [Motrin] 800 mg PO Q8H PRN 06/26/20 08/26/20 Ipratropium [place] [Atrovent Hfa] 2 puff INHALATION RT-QID PRN 06/26/20 08/26/20 Loratadine [Claritin] 10 mg PO DAILY PRN 06/26/20 08/26/20 Docusate [Colace] 100 mg PO TID 08/24/20 08/26/20 Multivitamins, Thera [Multivitamin 1 tab PO DAILY 08/24/20 08/26/20 (formulary)] Omeprazole Magnesium [PriLOSEC] 20 mg PO DAILY 08/24/20 08/26/20 traZODone HCL 300 mg PO HS 08/24/20 08/26/20 Allergies Allergy/AdvReac Type Severity Reaction Status Date / Time No Known Allergies Allergy Verified 08/26/20 11:41 Review of Systems ROS Statement: Those systems with pertinent positive or pertinent negative responses have been documented in the HPI. ROS Other: All systems not noted in ROS Statement are negative. Past Medical History Past Medical History: COPD, GERD/Reflux, Seizure Disorder Additional Past Medical History / Comment(s): Alcoholism , pt has scoliosis as a child History of Any Multi-Drug Resistant Organisms: None Reported Past Surgical History: No Surgical Hx Reported Additional Past Surgical History / Comment(s): Strabismus surgery as a child- Left eye surgery. blind in left eye Past Anesthesia/Blood Transfusion Reactions: No Reported Reaction Past Psychological History: Anxiety, Bipolar, Depression Smoking Status: Current every day smoker Past Alcohol Use History: Abuse, Daily, Heavy Past Drug Use History: None Reported - Past Family History Father Family Medical History: COPD Additional Family Medical History / Comment(s): Father is alive in his 50s with history of COPD. Sister(s) Additional Family Medical History / Comment(s): He has 5 sisters and one has drug abuse issues. Patient does not have any brothers. He has one 5-year-old daughter. Mother History Unknown: Yes Additional Family Medical History / Comment(s): Mother is alive in her 50s with no major medical problems. General Exam Limitations: no limitations General appearance: alert, in no apparent distress Head exam: Present: atraumatic, normocephalic, normal inspection Eye exam: Present: normal appearance, PERRL, EOMI. Absent: scleral icterus, conjunctival injection, periorbital swelling ENT exam: Present: normal exam, normal oropharynx, mucous membranes moist Neck exam: Present: normal inspection. Absent: tenderness, meningismus, lymphadenopathy Respiratory exam: Present: normal lung sounds bilaterally. Absent: respiratory distress, wheezes, rales, rhonchi, stridor Cardiovascular Exam: Present: regular rate, normal rhythm, normal heart sounds. Absent: systolic murmur, diastolic murmur, rubs, gallop, clicks GI/Abdominal exam: Present: soft, normal bowel sounds. Absent: distended, tenderness, guarding, rebound, rigid Course Vital Signs 08/26/20 07:00 Temperature 97.6 F Pulse Rate 91 Respiratory 16 Rate Blood Pressure 119/80 O2 Sat by Pulse 99 Oximetry Medical Decision Making - Medical Decision Making Patient evaluated by EPS patient will be a admitted for psychiatric treatment. - Lab Data Lab Results 08/26/20 Range/Units 07:27 Urine Opiates Screen Not Detected (NotDetected) Ur Oxycodone Screen Not Detected (NotDetected) Urine Methadone Screen Not Detected (NotDetected) Ur Propoxyphene Screen Not Detected (NotDetected) Ur Barbiturates Screen Not Detected (NotDetected) U Tricyclic Antidepress Not Detected (NotDetected) Ur Phencyclidine Scrn Not Detected (NotDetected) Ur Amphetamines Screen Not Detected (NotDetected) U Methamphetamines Scrn Not Detected (NotDetected) U Benzodiazepines Scrn Not Detected (NotDetected) Urine Cocaine Screen Not Detected (NotDetected) U Marijuana (THC) Screen Not Detected (NotDetected) Disposition Clinical Impression: Depression Disposition: TRANSFER TO PSYCH HOSP/UNIT Referrals: None,Stated [Primary Care Provider] - 1-2 days
[2020-08-26 07:50] LABS: Amphetamine Screen,Urine Not Detected (NotDetected); Barbiturate Screen,Urine Not Detected (NotDetected); Benzodiazepines Screen,Urine Not Detected (NotDetected); Cocaine Screen,Urine Not Detected (NotDetected); Methadone Screen, Urine Not Detected (NotDetected); Opiate Screen,Urine Not Detected (NotDetected); Oxycodone Screen, Urine Not Detected (NotDetected); Phencyclidine Screen,Urine Not Detected (NotDetected); Tricyclic Antidepressant,Urine Not Detected (NotDetected); Urn Cannabinoid Scrn Not Detected (NotDetected)
[2020-08-26] MEDS ORDERED: MAG HYDROX/AL HYDROX/SIMETH 30 ML CUP PO PRN (14:58)
[2020-08-26] MEDS ORDERED: ACETAMINOPHEN TAB 325 MG TAB PO PRN (14:58)
[2020-08-26] MEDS ORDERED: MAGNESIUM HYDROXIDE 2,400 MG/10 ML CUP PO PRN (14:58)
[2020-08-26] MEDS ORDERED: LORazepam 2 MG/ML INJ IM PRN (15:06)
[2020-08-26] MEDS ORDERED: HALOPERIDOL LACTATE 5 MG/ML 1 ML VIAL IM PRN (15:07)
[2020-08-26] MEDS ORDERED: ALBUTEROL INHALER 60 PUFF/8 GM INHALER (MHU) INHALATION PRN (15:09)
[2020-08-26] MEDS ORDERED: LORATADINE 10 MG TAB PO PRN (15:09)
[2020-08-26] MEDS ORDERED: IPRATROPIUM 0.5 MG/2.5 ML NEBU INHALATION PRN (15:09)
[2020-08-26] MEDS: DOCUSATE 100 MG CAP PO SCH ×2 (15:46→21:24)
[2020-08-26] MEDS: NICOTINE 14MG/24HR PATCH TRANSDERM SCH (15:46)
[2020-08-26] MEDS: LORazepam 1 MG TAB PO PRN (15:46)
[2020-08-26] MEDS: PANTOPRAZOLE 40 MG TABLET PO SCH (15:46)
[2020-08-26 16:02] LABS: Appearance,Urine Clear (Clear); Bilirubin,Urine Negative (Negative); Blood,Urine Negative (Negative); Color,Urine Yellow; Glucose,Urine (UA) Negative (Negative); Ketones,Urine Negative (Negative); Leukocyte Esterase,Urine Negative (Negative); Nitrite,Urine Negative (Negative); Protein,Urine Negative (Negative); Specific Gravity,Urine 1.009 (1.001-1.035); Urobilinogen,Urine <2.0 mg/dL (<2.0)
[2020-08-26] MEDS: chlordiazePOXIDE 25 MG CAP PO SCH ×2 (18:28→21:18)
[2020-08-26] MEDS ORDERED: traZODone HCL 50 MG TAB PO SCH (21:00)
[2020-08-26] MEDS: busPIRone HCl 5 MG TAB PO SCH (21:18)
[2020-08-27] MEDS: LORazepam 1 MG TAB PO PRN ×3 (00:39→17:35)
[2020-08-27] MEDS: IBUPROFEN 800 MG TAB PO PRN (03:37)
[2020-08-27 07:40] LABS: Basophils % (A) 1 %; Eosinophils # (A) 0.1 k/uL (0-0.7); Eosinophils % (A) 5 %; HCT 35.4 % (39.0-53.0); HGB 12.1 gm/dL (13.0-17.5); Lymphocytes # (A) 1.2 k/uL (1.0-4.8); Lymphocytes % (A) 51 %; MCH 30.8 pg (25.0-35.0); MCHC 34.2 g/dL (31.0-37.0); MCV 89.9 fL (80.0-100.0); Mean Platelet Volume 10.6; Monocytes # (A) 0.2 k/uL (0-1.0); Monocytes % (A) 6 %; Neutrophils # (A) 0.8 k/uL (1.3-7.7); Neutrophils % (A) 33 %; RBC 3.94 m/uL (4.30-5.90); RDW 14.7 % (11.5-15.5); WBC 2.3 k/uL (3.8-10.6)
[2020-08-27 07:46] LABS: Platelet Count 25 k/uL (150-450)
[2020-08-27] MEDS: busPIRone HCl 5 MG TAB PO SCH ×2 (07:47→20:51)
[2020-08-27] MEDS: MULTIVITAMINS, THERA 1 EACH TAB PO SCH (07:47)
[2020-08-27] MEDS: chlordiazePOXIDE 25 MG CAP PO SCH ×4 (07:47→22:58)
[2020-08-27] MEDS: PANTOPRAZOLE 40 MG TABLET PO SCH (07:47)
[2020-08-27] MEDS: DOCUSATE 100 MG CAP PO SCH ×3 (07:47→21:03)
[2020-08-27] MEDS: NICOTINE 14MG/24HR PATCH TRANSDERM SCH (07:48)
[2020-08-27 07:52] LABS: ALT 127 U/L (4-49); AST 240 U/L (17-59); African American GFR (CKD) >90 (>60 ml/min/1.73 sqM); Albumin 3.9 g/dL (3.5-5.0); Alkaline Phosphatase 54 U/L (38-126); Anion Gap 9 mmol/L; Blood Urea Nitrogen 15 mg/dL (9-20); Calcium 9.6 mg/dL (8.4-10.2); Carbon Dioxide 23 mmol/L (22-30); Chloride 104 mmol/L (98-107); Cholesterol 187 mg/dL (<200); Glucose 112 mg/dL (74-99); HDL Cholesterol 69 mg/dL (40-60); LDL Cholesterol,Calculated 101 mg/dL (0-99); Non-African American GFR(CKD) >90 (>60 ml/min/1.73 sqM); Potassium 3.8 mmol/L (3.5-5.1); Sodium 136 mmol/L (137-145); Total Bilirubin 0.8 mg/dL (0.2-1.3); Triglycerides 86 mg/dL (<150)
[2020-08-27] MEDS ORDERED: cloNIDine HCL 0.1 MG TAB PO PRN (08:50)
[2020-08-27] MEDS: DULoxetine HCL 30 MG CAPSULE.DR PO SCH (09:00)
--- NOTE | 2020-08-27 09:10 | P.HP ---
Psychiatric H&P - . H&P Date: 08/27/20 History & Physical: Allergies Allergy/AdvReac Type Severity Reaction Status Date / Time No Known Allergies Allergy Verified 08/26/20 11:41 Vital Signs Temp 97.2 F L 08/27/20 01:01 Pulse 123 H 08/27/20 07:40 Resp 16 08/27/20 01:01 BP 112/78 08/27/20 07:40 Pulse Ox 98 08/26/20 15:26 Intake & Output 08/26/20 08/27/20 08/27/20 18:59 06:59 18:59 Weight 50.094 kg Laboratory Last Values WBC 2.3 k/uL (3.8-10.6) L 08/27/20 07:00 RBC 3.94 m/uL (4.30-5.90) L 08/27/20 07:00 Hgb 12.1 gm/dL (13.0-17.5) L 08/27/20 07:00 Hct 35.4 % (39.0-53.0) L 08/27/20 07:00 MCV 89.9 fL (80.0-100.0) 08/27/20 07:00 MCH 30.8 pg (25.0-35.0) 08/27/20 07:00 MCHC 34.2 g/dL (31.0-37.0) 08/27/20 07:00 RDW 14.7 % (11.5-15.5) 08/27/20 07:00 Plt Count 25 k/uL (150-450) L 08/27/20 07:00 MPV 10.6 08/27/20 07:00 Neutrophils % 33 % 08/27/20 07:00 Lymphocytes % 51 % 08/27/20 07:00 Monocytes % 6 % 08/27/20 07:00 Eosinophils % 5 % 08/27/20 07:00 Basophils % 1 % 08/27/20 07:00 Neutrophils # 0.8 k/uL (1.3-7.7) L 08/27/20 07:00 Lymphocytes # 1.2 k/uL (1.0-4.8) 08/27/20 07:00 Monocytes # 0.2 k/uL (0-1.0) 08/27/20 07:00 Eosinophils # 0.1 k/uL (0-0.7) 08/27/20 07:00 Basophils # 0.0 k/uL (0-0.2) 08/27/20 07:00 Sodium 136 mmol/L (137-145) L 08/27/20 07:00 Potassium 3.8 mmol/L (3.5-5.1) 08/27/20 07:00 Chloride 104 mmol/L (98-107) 08/27/20 07:00 Carbon Dioxide 23 mmol/L (22-30) 08/27/20 07:00 Anion Gap 9 mmol/L 08/27/20 07:00 BUN 15 mg/dL (9-20) 08/27/20 07:00 Creatinine 0.65 mg/dL (0.66-1.25) L 08/27/20 07:00 Est GFR (CKD-EPI)AfAm >90 (>60 ml/min/1.73 sqM) 08/27/20 07:00 Est GFR (CKD-EPI)NonAf >90 (>60 ml/min/1.73 sqM) 08/27/20 07:00 Glucose 112 mg/dL (74-99) H 08/27/20 07:00 Calcium 9.6 mg/dL (8.4-10.2) 08/27/20 07:00 Total Bilirubin 0.8 mg/dL (0.2-1.3) 08/27/20 07:00 AST 240 U/L (17-59) H 08/27/20 07:00 ALT 127 U/L (4-49) H 08/27/20 07:00 Alkaline Phosphatase 54 U/L (38-126) 08/27/20 07:00 Total Protein 7.0 g/dL (6.3-8.2) 08/27/20 07:00 Albumin 3.9 g/dL (3.5-5.0) 08/27/20 07:00 Triglycerides 86 mg/dL (<150) 08/27/20 07:00 Cholesterol 187 mg/dL (<200) 08/27/20 07:00 LDL Cholesterol, Calc 101 mg/dL (0-99) H 08/27/20 07:00 HDL Cholesterol 69 mg/dL (40-60) H 08/27/20 07:00 TSH 0.719 mIU/L (0.465-4.680) 08/27/20 07:00 Urine Color Yellow 08/26/20 07:27 Urine Appearance Clear (Clear) 08/26/20 07:27 Urine pH 8.0 (5.0-8.0) 08/26/20 07:27 Ur Specific [place] 1.009 (1.001-1.035) 08/26/20 07:27 Urine Protein Negative (Negative) 08/26/20 07:27 Urine Glucose (UA) Negative (Negative) 08/26/20 07:27 Urine Ketones Negative (Negative) 08/26/20 07:27 Urine Blood Negative (Negative) 08/26/20 07:27 Urine Nitrite Negative (Negative) 08/26/20 07:27 Urine Bilirubin Negative (Negative) 08/26/20 07:27 Urine Urobilinogen <2.0 mg/dL (<2.0) 08/26/20 07:27 Ur Leukocyte Esterase Negative (Negative) 08/26/20 07:27 Urine Opiates Screen Not Detected (NotDetected) 08/26/20 07:27 Ur Oxycodone Screen Not Detected (NotDetected) 08/26/20 07:27 Urine Methadone Screen Not Detected (NotDetected) 08/26/20 07:27 Ur Propoxyphene Screen Not Detected (NotDetected) 08/26/20 07:27 Ur Barbiturates Screen Not Detected (NotDetected) 08/26/20 07:27 U Tricyclic Antidepress Not Detected (NotDetected) 08/26/20 07:27 Ur Phencyclidine Scrn Not Detected (NotDetected) 08/26/20 07:27 Ur Amphetamines Screen Not Detected (NotDetected) 08/26/20 07:27 U Methamphetamines Scrn Not Detected (NotDetected) 08/26/20 07:27 U Benzodiazepines Scrn Not Detected (NotDetected) 08/26/20 07:27 Urine Cocaine Screen Not Detected (NotDetected) 08/26/20 07:27 U Marijuana (THC) Screen Not Detected (NotDetected) 08/26/20 07:27 Coronavirus (PCR) Not Detected (Not Detectd) 08/26/20 13:24 08/27/20 08:41 IDENTIFYING DATA: Patient is a 40-year-old male with a long history of alcohol use who is currently single lives with his friend in an apartment and has a daughter HPI: Patient presented to the hospital earlier this week for alcohol intoxication and withdrawal. Patient was discharged one day after from observations on 08/24 as patient initially claimed that he wanted to go to rehab however did not end up doing it. Patient returned back to the hospital yesterday for relapse in his drinking and also depression and suicidal thoughts. Patient's AST/ALT were elevated on admission. Patient was seen today in the hallway in a wheelchair and was agreeable to speak to resume writer. He appears to be thin and disheveled in appearance. He claims that he is feeling weak and is "malnourished". He states that after he left the hospital he went to a friend's house and states that "I kept falling". He states that he had his "equilibrium off". He claims that he came to the ER twice for help and the second time he states that he was feeling suicidal. He denied any plans at that time. He states that he is having anxiety and is having mild withdrawal symptoms including tremors in his hands. Patient is fairly evasive and manipulative and is med seeking. He was preoccupied with obtaining Ativan and other controlled medications stating "it's the only thing that works". He states that his sleep has been poor and his appetite as been poor. He states that today he has suicidal thoughts however no intent or plan. He claims he has been depressed for "months". He states that he does have visual hallucinations when he closes his eyes he sees "a TV show playing". He is denying any auditory hallucinations or paranoia. He is denying any homicidal thoughts. Patient denies any flight of ideas racing thoughts and increased in goal directed behavior. Drinks alcohol daily approximately 1-2 pints of vodka per day. He does have a history of severe alcohol withdrawal. Patient denies any other recreational drug use and admits to smoking cigarettes 1 pack per day. PAST PSYCHIATRIC HISTORY: Patient states that he has a history of depression and anxiety and polysubstance use. Patient has been hospitalized in psychiatric units many times and was last admitted to the mental health floor in March 2019. Patient was recently seen by psychiatric consultation earlier this week. Patient is open with [facility] however claims that he has not been going to his appointments. Patient has been on multiple antidepressants and benzodiazepines, trazodone and BuSpar in the past and has a history of manipulation and drug seeking behaviors. Patient denies any previous history of suicide attempts PMH: COPD, GERD, seizures ALLERGIES: as per EMR CHEMICAL DEPENDENCY HISTORY: as per HPI FAMILY PSYCHIATRIC/SUBSTANCE USE HISTORY: denies SOCIAL HISTORY: He states that he was born and raised in [place] on and also in [place]. Patient currently lives in [place] with his friend/roommate in an apartment. Patient graduated from high school. Patient has one daughter who is 8 years old. MENTAL STATUS EXAM: General Appearance: Patient appears to be older than stated age is alert, attempts to be and disheveled. In a wheelchair. Behavior: Patient is calmly sitting in his chair without any agitated behavior. Manipulative and med seeking. Speech: Patient's speech is fluent and nonpressured. Mood/Affect: Patient reports their mood is "depressed", affect is congruent and constricted Suicidality/Homicidality: Patient denies having any suicidal or homicidal ideation intent or plan. Perceptions: Patient denies any auditory or visual hallucinations. Thought content/process: There is no evidence of any delusional thought content, patient is preoccupied with medications including controlled substances. Memory and concentration: AOX2-3, grossly intact for the purposes of this session. Can spell "WORLD" backwards Judgment and insight: chronically poor/superficial STRENGTHS/WEAKNESSES: strength is that patient is resilient. Weakness is that patient has poor judgment, insight and is impulsive INTELLECT: average IMPRESSIONS: History of depressive disorder Alcohol abuse, currently in withdrawal Nicotine dependence Personality disorder unspecified, likely cluster B PLAN: -Patient is admitted under voluntary status to MHU for stabilization of psychiatric symptoms and safety. Patient has signed adult voluntary form and medication consent and is placed in patient's chart. -Medications : Will start patient on trazodone which was increased to 100 mg daily at bedtime for insomnia/mood. BuSpar 15 mg twice a day for anxiety. Cymbalta 30 mg daily for mood/anxiety/pain. Scheduled Librium 25 mg 4 times a day for alcohol withdrawal with plan to taper down on Sunday. Clonidine 0.1 mg every 8 hours when necessary for opiate withdrawal symptoms. Will hold Adderall and patient's Klonopin at this time due to patient's significant substance abuse. Patient has been receiving Suboxone by his PCP however patient does not have this medication to be brought into the hospital. -Ativan and Haldol PRN for agitation/aggression -Started thiamine, MVM for etoh use -CIWA protocol with Ativan PRN for ETOH withdrawal -Patient was counselled on substance abuse and desired to cut back on use -Patient was informed of the risks, benefits and side effects of the medication and patient verbally consented to taking the medications. Patient signed med consent form and was placed in chart. -Internal Medicine consult to perform medical evaluation and physical. -NRT - nicotine patch -SW on board for discharge planning. Encourage patient to participate in groups to work on coping skills. plant care worker to provide patient with access line intake number for rehab. 08/27/20 09:08
--- NOTE | 2020-08-27 14:22 | P.MDCNMH ---
History of Present Illness H&P Date: 08/27/20 Chief Complaint: Social ideation Patient is a 40-year-old male with a known history of COPD, seizure disorder, alcohol abuse, COPD and currently everyday smoker, anxiety/depression and bipolar disorder and heavy alcohol use on daily basis presents to ER due to suicidal ideation. Patient was recently admitted to the hospital due to alcohol intoxication recently and left AMA on 08/24/2020. Patient presented back to the hospital due to depression and suicide ideation. Patient is in the wheelchair due to childhood scoliosis. No complaints of chest pain or shortness of breath. No nausea vomiting or abdominal pain or diarrhea. No dysuria or hematuria. No fever no chills. Laboratory data showed WBC 2.3 hemoglobin 12.1 and platelets 25 Sodium 136 potassium 3.8 chloride 104 BUN 15 and creatinine 0.65, AST 240 ALT 127, LDL 101 UA negative for infection UDS is negative. CoVid not detected Review of Systems Constitutional: Patient denies any fever or chills . No generalized weakness or weight loss. Abdomen: Patient denied nausea vomiting and diarrhea and abdominal pain. Cardiovascular: Patient denies any chest pain or short of breath no palpitations. Respiratory: patient denied any cough is from production. No shortness of breath Neurologic: Patient denied any numbness or tingling headache. Musculoskeletal: Patient denies any complaints of joint swelling or deformity. Skin: Negative Psychiatric: Negative Endocrine: No heat or cold intolerance. No recent weight gain. Genitourinary: No dysuria or hematuria. All other 14 point ROS negative except the above Past Medical History Past Medical History: COPD, GERD/Reflux, Seizure Disorder Additional Past Medical History / Comment(s): Alcoholism , pt has scoliosis as a child History of Any Multi-Drug Resistant Organisms: None Reported Past Surgical History: No Surgical Hx Reported Additional Past Surgical History / Comment(s): Strabismus surgery as a child- Left eye surgery. blind in left eye Past Anesthesia/Blood Transfusion Reactions: No Reported Reaction Past Psychological History: Anxiety, Bipolar, Depression Smoking Status: Current every day smoker Past Alcohol Use History: Abuse, Daily, Heavy Past Drug Use History: None Reported - Past Family History Father Family Medical History: COPD Additional Family Medical History / Comment(s): Father is alive in his 50s with history of COPD. Sister(s) Additional Family Medical History / Comment(s): He has 5 sisters and one has drug abuse issues. Patient does not have any brothers. He has one 5-year-old daughter. Mother History Unknown: Yes Additional Family Medical History / Comment(s): Mother is alive in her 50s with no major medical problems. Medications and Allergies Home Medications Medication Instructions Recorded Confirmed Type Buprenorphine HCl/Naloxone HCl 1 film SL BID PRN 03/06/20 08/26/20 History [Suboxone 8 mg-2 mg Sl Film] busPIRone HCL 15 mg PO BID 03/06/20 08/26/20 History clonazePAM 0.5 mg PO HS 03/06/20 08/26/20 History Albuterol Sulfate [Proair Hfa] 2 puff INHALATION RT-QID PRN 06/26/20 08/26/20 History Ibuprofen [Motrin] 800 mg PO Q8H PRN 06/26/20 08/26/20 History Ipratropium [place] [Atrovent Hfa] 2 puff INHALATION RT-QID PRN 06/26/20 08/26/20 History Loratadine [Claritin] 10 mg PO DAILY PRN 06/26/20 08/26/20 History Docusate [Colace] 100 mg PO TID 08/24/20 08/26/20 History Multivitamins, Thera [Multivitamin 1 tab PO DAILY 08/24/20 08/26/20 History (formulary)] Omeprazole Magnesium [PriLOSEC] 20 mg PO DAILY 08/24/20 08/26/20 History traZODone HCL 300 mg PO HS 08/24/20 08/26/20 History Allergies Allergy/AdvReac Type Severity Reaction Status Date / Time No Known Allergies Allergy Verified 08/26/20 11:41 Physical Exam Vitals: Vital Signs Temp Pulse Resp BP Pulse Ox 08/27/20 07:40 123 H 112/78 08/27/20 01:01 97.2 F L 150 H 16 106/72 08/26/20 15:26 98.9 F 118 H 16 118/85 98 Intake and Output 08/26/20 08/27/20 08/27/20 22:59 06:59 14:59 Other: Weight 50.094 kg PHYSICAL EXAMINATION: Patient is lying in the bed comfortably, no acute distress, awake alert and oriented.. HEENT: Normocephalic. Neck is supple. Pupils reactive. Nostrils clear. Oral cavity is moist. Ears reveal no drainage. Neck reveals no JVD, carotid bruits, or thyromegaly. CHEST EXAMINATION: Trachea is central. Scoliosis., Symmetrical expansion. Lung carson clear to auscultation and percussion. CARDIAC: Normal S1, S2 with no gallops. No murmurs ABDOMEN: Soft. Bowel sounds normal. No organomegaly. No abdominal bruits. Extremities: reveal no edema. No clubbing or cyanosis Neurologically awake, alert, oriented x3 with well-coordinated movements. No focal deficits noted Skin: No rash or skin lesions. Psychiatric: Coperative. Denied any suicidal ideation. Musculoskeletal: No joint swelling or deformity. Normal range of motion. Cranial Nerve Examination - Cranial Nerves Cranial Nerve I- Olfactory: Intact Cranial Nerve II- Optic: Intact Cranial Nerve III- Oculomotor: Intact Cranial Nerve IV- Trochlear: Intact Cranial Nerve V- Trigeminal: Intact Cranial Nerve - Abducens: Intact Cranial Nerve VII- Facial: Intact Cranial Nerve VIII- Auditory: Intact Cranial Nerve IX- Glossopharyngeal: Intact Cranial Nerve X- Vagus: Intact Cranial Nerve XI- Accessory: Intact Cranial Nerve XII- Hypoglossal: Intact Results CBC & Chem 7: 08/27/20 07:00 08/27/20 07:00 Labs: Abnormal Lab Results - Last 24 Hours (Table) 08/27/20 08/27/20 Range/Units 07:00 07:00 WBC 2.3 L (3.8-10.6) k/uL RBC 3.94 L (4.30-5.90) m/uL Hgb 12.1 L (13.0-17.5) gm/dL Hct 35.4 L (39.0-53.0) % Plt Count 25 L (150-450) k/uL Neutrophils # 0.8 L (1.3-7.7) k/uL Sodium 136 L (137-145) mmol/L Creatinine 0.65 L (0.66-1.25) mg/dL Glucose 112 H (74-99) mg/dL AST 240 H (17-59) U/L ALT 127 H (4-49) U/L LDL Cholesterol, Calc 101 H (0-99) mg/dL HDL Cholesterol 69 H (40-60) mg/dL Assessment and Plan Assessment: Severe depression with suicidal ideation. Severe alcohol abuse with recent admission with intoxication followed by withdrawal symptoms Neutropenia and thrombocytopenia likely due to alcohol liver disease Alcohol Hepatitis with elevated liver enzymes AST greater than ALT COPD not in exacerbation History of alcohol withdrawal seizures. Currently everyday smoker Anxiety/depression and bipolar disorder DVT prophylaxis with early ambulation plan: patient be continued on thiamine, multivitamins and monitor for alcohol withdrawal symptoms. Patient is currently on Librium 4 times a day. Continue with her and psychotic or relation management. Continue with PPI and encourage increase oral intake. Monitor CBC and liver enzymes. We will continue to follow with you and further recommendations based on the clinical course. Thank you for your consult. Time with Patient: Greater than 30
[2020-08-27 15:10] VITALS: BMI 16.2
[2020-08-27] MEDS: THIAMINE 100 MG TAB PO SCH (15:10)
[2020-08-27 18:19] LABS: Hemoglobin A1C 5.7 % (4.0-6.0)
[2020-08-27] MEDS: traZODone HCL 100 MG TAB PO SCH (20:51)
[2020-08-28] MEDS: IBUPROFEN 800 MG TAB PO PRN ×2 (05:13→22:24)
[2020-08-28] MEDS: MULTIVITAMINS, THERA 1 EACH TAB PO SCH (08:43)
[2020-08-28] MEDS: DULoxetine HCL 30 MG CAPSULE.DR PO SCH (08:43)
[2020-08-28] MEDS: THIAMINE 100 MG TAB PO SCH (08:43)
[2020-08-28] MEDS: DOCUSATE 100 MG CAP PO SCH ×3 (08:43→23:13)
[2020-08-28] MEDS: PANTOPRAZOLE 40 MG TABLET PO SCH (08:43)
[2020-08-28] MEDS: chlordiazePOXIDE 25 MG CAP PO SCH ×4 (08:43→22:24)
[2020-08-28] MEDS: busPIRone HCl 5 MG TAB PO SCH ×2 (08:43→22:23)
[2020-08-28] MEDS: NICOTINE 14MG/24HR PATCH TRANSDERM SCH (08:47)
[2020-08-28] MEDS: LORazepam 1 MG TAB PO PRN (14:47)
[2020-08-28] MEDS: traZODone HCL 100 MG TAB PO SCH (22:24)
--- NOTE | 2020-08-28 23:03 | P.PN ---
Progress Note - Text Progress Note Date: 08/28/20 Identifying Information 40 year old male with chronic history of depression, anxiety and polysubstance abuse and multiple psychiatric hospitalizations was admitted to [facility] voluntarily with mild symptoms of alcohol withdrawal, depression and suicidal ideations. He has history of drug seeking behaviors. He reports poor sleep and says he needs higher doses of trazadone. He says he is no longer suicidal. He reports low energy levels and depression. He reports going to all his groups and reports good appetite. He toelrates his medications well with out any side effects. MENTAL STATUS EXAM: General Appearance: Patient appears stated age in fair grooming and hygeine. Behavior: No psychomotor agitation or retardation Speech: Patient's speech is fluent and nonpressured. Mood/Affect: Patient reports their mood is "depressed", affect is congruent and constricted Suicidality/Homicidality: Patient denies having any suicidal or homicidal ideation intent or plan. Perceptions: Patient denies any auditory or visual hallucinations. Thought content/process: There is no evidence of any delusional thought content Judgment and insight: chronically poor/superficial Assessment Depressive disorder unspecified, rule out adjustment disorder versus substance- induced mood disorder versus major depressive disorder Alcohol abuse, currently in withdrawal Nicotine dependence History of opiate abuse Cluster B personality disorder Plan -Medications : Will increase trazodone dose from 100mg po qhs to 150mg po qhs. for insomnia/mood. Continue BuSpar 15 mg twice a day for anxiety. Cymbalta 30 mg daily for mood/anxiety/pain. Scheduled Librium 25 mg 4 times a day for alcohol withdrawal with plan to taper down on Sunday. Clonidine 0.1 mg every 8 hours when necessary for opiate withdrawal symptoms. hold Adderall and patient's Klonopin at this time due to patient's significant substance abuse. Patient has been receiving Suboxone by his PCP however patient does not have this medication to be brought into the hospital. -Ativan and Haldol PRN for agitation/aggression -continue thiamine, MVM for etoh use -CIWA protocol with Ativan PRN for ETOH withdrawal -NRT - nicotine patch -SW on board for discharge planning. Encourage patient to participate in groups to work on coping skills. dry drug worker to provide patient with access line intake number for rehab.
[2020-08-28] MEDS ORDERED: traZODone HCL 50 MG TAB PO STA (23:19)
[2020-08-29] MEDS: LORazepam 1 MG TAB PO PRN ×2 (02:08→16:27)
[2020-08-29] MEDS ORDERED: LORazepam 1 MG TAB PO ONE (05:39)
[2020-08-29 07:31] LABS: ALT 200 U/L (4-49); AST 203 U/L (17-59); African American GFR (CKD) >90 (>60 ml/min/1.73 sqM); Albumin 4.2 g/dL (3.5-5.0); Alkaline Phosphatase 46 U/L (38-126); Anion Gap 7 mmol/L; Blood Urea Nitrogen 20 mg/dL (9-20); Calcium 10.1 mg/dL (8.4-10.2); Carbon Dioxide 26 mmol/L (22-30); Chloride 107 mmol/L (98-107); Glucose 89 mg/dL (74-99); Non-African American GFR(CKD) >90 (>60 ml/min/1.73 sqM); Potassium 4.1 mmol/L (3.5-5.1); Sodium 140 mmol/L (137-145); Total Bilirubin 0.7 mg/dL (0.2-1.3); Total Protein 7.3 g/dL (6.3-8.2)
[2020-08-29 08:01] LABS: Basophils % (A) 1 %; Eosinophils # (A) 0.2 k/uL (0-0.7); Eosinophils % (A) 5 %; HCT 36.2 % (39.0-53.0); HGB 12.4 gm/dL (13.0-17.5); Lymphocytes # (A) 1.7 k/uL (1.0-4.8); Lymphocytes % (A) 48 %; MCH 31.4 pg (25.0-35.0); MCHC 34.3 g/dL (31.0-37.0); MCV 91.6 fL (80.0-100.0); Monocytes # (A) 0.5 k/uL (0-1.0); Monocytes % (A) 14 %; Neutrophils % (A) 28 %; RBC 3.95 m/uL (4.30-5.90)
[2020-08-29 08:11] LABS: WBC 3.5 k/uL (3.8-10.6)
[2020-08-29] MEDS: NICOTINE 14MG/24HR PATCH TRANSDERM SCH (08:49)
[2020-08-29] MEDS: chlordiazePOXIDE 25 MG CAP PO SCH ×3 (08:52→21:45)
[2020-08-29] MEDS: DULoxetine HCL 30 MG CAPSULE.DR PO SCH (08:52)
[2020-08-29] MEDS: PANTOPRAZOLE 40 MG TABLET PO SCH (08:53)
[2020-08-29] MEDS: busPIRone HCl 5 MG TAB PO SCH ×2 (08:53→21:45)
[2020-08-29] MEDS: THIAMINE 100 MG TAB PO SCH (08:53)
[2020-08-29] MEDS: MULTIVITAMINS, THERA 1 EACH TAB PO SCH (08:53)
[2020-08-29] MEDS: DOCUSATE 100 MG CAP PO SCH ×3 (08:53→21:47)
[2020-08-29 11:14] LABS: Platelet Count 75 k/uL (150-450)
[2020-08-29] MEDS: IBUPROFEN 800 MG TAB PO PRN (13:28)
--- NOTE | 2020-08-29 19:53 | P.PN ---
Progress Note - Text Progress Note Date: 08/29/20 Identifying Information 40 year old male with chronic history of depression, anxiety and polysubstance abuse and multiple psychiatric hospitalizations was admitted to [facility] voluntarily with mild symptoms of alcohol withdrawal, depression and suicidal ideations. He has history of drug seeking behaviors. He says his room mate snores and kept him allnight. He reports feeling very tired today. No other complaints reported today. He reports going to all his groups and reports good appetite. He toelrates his medications well with out any side effects. MENTAL STATUS EXAM: General Appearance: Patient appears stated age in fair grooming and hygeine. Behavior: No psychomotor agitation or retardation Speech: Normal rate, tone and volume Mood/Affect: Patient reports his mood is OK, affect is congruent and constricted Suicidality/Homicidality: Patient denies having any suicidal or homicidal ideation intent or plan. Perceptions: Patient denies any auditory or visual hallucinations. Thought content/process: There is no evidence of any delusional thought content Judgment and insight: chronically poor/superficial Assessment Depressive disorder unspecified, rule out adjustment disorder versus substance- induced mood disorder versus major depressive disorder Alcohol abuse, currently in withdrawal Nicotine dependence History of opiate abuse Cluster B personality disorder Plan -Medications : Continue trazodone 150mg po qhs. for insomnia/mood. Continue BuSpar 15 mg twice a day for anxiety. Cymbalta 30 mg daily for mood/anxiety/pain. Scheduled Librium 25 mg 4 times a day for alcohol withdrawal with plan to taper down on Sunday. Clonidine 0.1 mg every 8 hours when necessary for opiate withdrawal symptoms. hold Adderall and patient's Klonopin at this time due to patient's significant substance abuse. Patient has been receiving Suboxone by his PCP however patient does not have this medication to be brought into the hospital. -Ativan and Haldol PRN for agitation/aggression -continue thiamine, MVM for etoh use -CIWA protocol with Ativan PRN for ETOH withdrawal -NRT - nicotine patch -SW on board for discharge planning. Encourage patient to participate in groups to work on coping skills. boat worker to provide patient with access line intake number for rehab.
[2020-08-29] MEDS ORDERED: traZODone HCL 50 MG TAB PO SCH ×2 (21:00)
[2020-08-30] MEDS: LORazepam 1 MG TAB PO PRN ×3 (02:52→18:43)
[2020-08-30] MEDS: chlordiazePOXIDE 25 MG CAP PO SCH (09:00)
[2020-08-30] MEDS: busPIRone HCl 5 MG TAB PO SCH ×3 (09:00→21:52)
[2020-08-30] MEDS: NICOTINE 14MG/24HR PATCH TRANSDERM SCH (09:00)
[2020-08-30] MEDS: MULTIVITAMINS, THERA 1 EACH TAB PO SCH (09:01)
[2020-08-30] MEDS: DOCUSATE 100 MG CAP PO SCH ×3 (09:01→21:52)
[2020-08-30] MEDS: THIAMINE 100 MG TAB PO SCH (09:01)
[2020-08-30] MEDS: PANTOPRAZOLE 40 MG TABLET PO SCH (09:01)
[2020-08-30] MEDS: DULoxetine HCL 30 MG CAPSULE.DR PO SCH (09:01)
[2020-08-30] MEDS: IBUPROFEN 800 MG TAB PO PRN (09:05)
--- NOTE | 2020-08-30 09:37 | P.PN ---
Progress Note - Text Progress Note Date: 08/30/20 Interval History: Patient was seen laying down in his bed this morning and was directable and ag reeable to speak with engineering writer in the office. Patient claims that his mood is gradually getting better and his anxiety as well. He continues to be focused on his Ativan and his withdrawal medications. He continues to minimize his need for substance use treatment and has chronically poor insight. She claims that she does not want to go to rehab any longer and would rather do outpatient treatment. Sound Tester spoke with patient about his previous hospitalizations due to alcohol use and patient claims that "I know it's a problem is skinny kill me collateral need rehab". She states that he has been going to some groups are always fairly superficial about them. He was asking about discharge today. He claims that he was able to sleep approximately 3 hours last night. At this time patient denies any suicidal or homical ideations, intent or plan. Patient denies any auditory, visual hallucinations and denies any paranoia or delusions. Patient denies any side effects from the medications and has been compliant with meds. Mental Status Exam: General Appearance: Patient appears to be older than stated age is alert, superficially cooperative, improving hygiene and grooming today. Behavior: Patient is calmly sitting in his chair without any agitated behavior. med seeking. Speech: Patient's speech is fluent and nonpressured. Mood/Affect: Patient reports their mood is "better", affect is congruent and constricted Suicidality/Homicidality: Patient denies having any suicidal or homicidal ideation intent or plan. Perceptions: Patient denies any auditory or visual hallucinations. Thought content/process: There is no evidence of any delusional thought content, patient is preoccupied with medications and minimizing his substance use. Memory and concentration: AOX2-3, grossly intact for the purposes of this session Judgment and insight: chronically poor/superficial, improving mildly Assessment Depressive disorder unspecified, rule out adjustment disorder versus substance-induced mood disorder versus major depressive disorder Alcohol abuse, currently in withdrawal Nicotine dependence History of opiate abuse Cluster B personality disorder Plan: -Patient continues to meet criteria for inpatient psychiatric admission for symptom stabilization and safety. Patient has signed adult voluntary form and medication consent and was placed in patient's chart. -Medications: Increased trazodone to 200 mg daily at bedtime for insomnia/mood. Increase BuSpar to 15 mg 3 times a day for anxiety. Increased Cymbalta to 60 mg daily for mood/anxiety/pain. Decreased Librium to 20 mg twice a day for alcohol withdrawal and continue to taper down. Clonidine 0.1 mg every 8 hours when necessary for opiate withdrawal symptoms. -When necessary Ativan and Haldol for agitation/aggression. -thiamine, MVM for etoh use -CIWA protocol with Ativan PRN for ETOH withdrawal -NRT - nicotine patch -SW on board for discharge planning. Encouraged the patient to participate in milieu. health care social worker provided patient with access line number however patient has not called and his now declining rehab. Patient wants to do outpatient substance use treatment upon discharge. Will be discharged tomorrow.
[2020-08-30] MEDS ORDERED: traZODone HCL 100 MG TAB PO SCH (21:00)
[2020-08-31] MEDS: LORazepam 1 MG TAB PO PRN ×2 (00:51→08:34)
[2020-08-31 01:12] VITALS: TEMP 98
[2020-08-31] MEDS: MULTIVITAMINS, THERA 1 EACH TAB PO SCH (08:29)
[2020-08-31] MEDS: busPIRone HCl 5 MG TAB PO SCH ×2 (08:29→15:34)
[2020-08-31] MEDS: THIAMINE 100 MG TAB PO SCH (08:30)
[2020-08-31] MEDS: PANTOPRAZOLE 40 MG TABLET PO SCH (08:30)
[2020-08-31] MEDS: DOCUSATE 100 MG CAP PO SCH ×2 (08:36→15:37)
[2020-08-31 08:37] VITALS: BP 107/68; PULSE 133; RESP 18
[2020-08-31] MEDS ORDERED: DULoxetine HCL 60 MG CAPSULE.DR PO SCH (09:00)
[2020-08-31] MEDS ORDERED: LORazepam 0.5 MG TAB PO PRN (09:11)
[2020-08-31] MEDS: NICOTINE 14MG/24HR PATCH TRANSDERM SCH (09:12)
--- NOTE | 2020-08-31 10:37 | P.DS ---
Providers Date of admission: 08/26/20 14:49 Expected date of discharge: 08/31/20 Attending physician: Nitin Jain MD Consults: 08/26/20 18:48 Consult Physician Routine Consulting Provider: Lisa Rahman Consult Reason/Comments: medical management/H&P Do you want consulting provider notified?: Yes Primary care physician: Kanchan Holbrook - Discharge Diagnosis(es) (1) Depressive disorder Current Visit: Yes Status: Acute Priority: High (2) Alcohol dependence Current Visit: Yes Status: Acute Priority: High (3) Nicotine dependence Current Visit: Yes Status: Acute Priority: Low (4) History of opioid abuse Current Visit: Yes Status: Acute Priority: Low (5) Cluster B personality disorder Current Visit: Yes Status: Acute Priority: Medium Hospital Course: Admission HPI: Admission note was completed by health underwriter "Patient is a 40-year-old male with a long history of alcohol use who is currently single lives with his friend in an apartment and has a daughter. Patient presented to the hospital earlier this week for alcohol intoxication and withdrawal. Patient was discharged one day after from observations on 08/24 as patient initially claimed that he wanted to go to rehab however did not end up doing it. Patient returned back to the hospital yesterday for relapse in his drinking and also depression and suicidal thoughts. Patient's AST/ALT were elevated on admission. Patient was seen today in the hallway in a wheelchair and was agreeable to speak to health underwriter. He appears to be thin and disheveled in appearance. He claims that he is feeling weak and is "malnourished". He states that after he left the hospital he went to a friend's house and states that "I kept falling". He states that he had his "equilibrium off". He claims that he came to the ER twice for help and the second time he states that he was feeling suicidal. He denied any plans at that time. He states that he is having anxiety and is having mild withdrawal symptoms including tremors in his hands. Patient is fairly evasive and manipulative and is med seeking. He was preoccupied with obtaining Ativan and other controlled medications stating "it's the only thing that works". He states that his sleep has been poor and his appetite as been poor. He states that today he has suicidal thoughts however no intent or plan. He claims he has been depressed for "months". He states that he does have visual hallucinations when he closes his eyes he sees "a TV show playing". He is denying any auditory hallucinations or paranoia. He is denying any homicidal thoughts. Patient denies any flight of ideas racing thoughts and increased in goal directed behavior. Drinks alcohol daily approximately 1-2 pints of vodka per day. He does have a history of severe alcohol withdrawal. Patient denies any other recreational drug use and admits to smoking cigarettes 1 pack per day." Hospital course: Upon admission to the unit patient was directable and agreeable to commence treatment and signed adult voluntary form. Patient got along well with other patients on the unit and followed unit protocol. Patient was compliant with the medications and denied any side effects throughout hospital course. Patient was placed on scheduled Librium with a taper for alcohol withdrawal and also CIWA protocol with Ativan when necessary. Patient was started on Cymbalta and titrate up the dose of 60 mg daily for mood/anxiety/pain. Patient was also started on BuSpar 15 mg twice a day for anxiety. Patient was also started on trazodone titrated up to dose of 200 mg daily at bedtime for insomnia/mood. Patient spoke of his stressors and engaged in individual and group therapy. Patient was also seen by medical team for history and physical exam. Throughout the course of the hospitalization patient gradually improved with regards to mood, anxiety, sleep and return back to his baseline level functioning. Patient has chronically poor insight and judgment. On the day of discharge patient denied any suicidal or homicidal ideations intent or plan denied any auditory or visual hallucinations. Patient endorsed wanting to live for his future and his sobriety. The patient denied any access to guns or weapons. Patient denied any paranoia and did not endorse any delusions. Patient does have a significant history of substance abuse and was counseled on abstaining from all substances including alcohol and marijuana. Patient was offered however declined inpatient substance-abuse rehab. Patient elected to do outpatient substance use treatment program through [facility]. Patient was also counseled on the medications and need for regular compliance and was encouraged to follow-up with their outpatient appointment for mental health and also for primary care. Mental status exam: General Appearance: Patient appears to be thin, older than stated age is alert, cooperative. Patient is in no acute distress and has improved hygiene and grooming Behavior: Patient is calmly seated without any agitated behavior. Speech: Patient's speech is fluent and nonpressured. Mood/Affect: Patient reports their mood is "better", affect is congruent Suicidality/Homicidality: Patient denies having any suicidal or homicidal ideation intent or plan. Perceptions: Patient denies any auditory or visual hallucinations. Though content/process: There is no evidence of any delusional thought content and thought process is linear and goal-directed. Memory and concentration: AOX3, grossly intact for the purposes of this session. Can spell "WORLD" backwards correctly. Judgment and insight: chronically poor, however has improved with guarded prognosis Impression: Depressive disorder unspecified Alcohol dependence Nicotine dependence History of opiate abuse Cluster B personality disorder Plan: -Continue with discharge today as patient has improved and stabilized psychiatrically and is not currently an imminent threat to himself and/or others. Patient will remain at chronically elevated risk for harm to self and/or others due to his impulsivity and substance abuse. -Continue medications: Continue trazodone 200 mg daily at bedtime for insomnia/mood, BuSpar 50 mg twice a day for anxiety, Cymbalta 60 mg daily for mood/anxiety/pain, Librium was discontinued. Patient was not given any Ativan on discharge due to the high abuse potential and history of severe alcohol use. -Patient was counseled on the need for medication compliance and appropriate follow-up at mental health and also primary care for medical issues. Patient verbalized understanding and agreed. -Social work to arrange for and conduct family meeting to ensure safety upon discharge and answer any questions/concerns. Social work also to arrange for patients follow up appointments with [facility] for psychiatric care along with follow up with primary care provider. -Patient counseled on abstaining from recreational drugs and marijuana and alcohol. Was informed/educated on the adverse effects on their physical and mental health. Patient verbally agreed and understood. Patient was offered substance abuse treatment however declined at this time and wanted to do outpatient treatment instead of rehab. -Patient was instructed to return to the hospital or seek immediate medical care if their psychiatric or medical symptoms do worsen or reoccur. Allergies Allergy/AdvReac Type Severity Reaction Status Date / Time No Known Allergies Allergy Verified 08/26/20 11:41 Laboratory Results WBC 3.5 k/uL (3.8-10.6) L 08/29/20 06:12 RBC 3.95 m/uL (4.30-5.90) L 08/29/20 06:12 Hgb 12.4 gm/dL (13.0-17.5) L 08/29/20 06:12 Hct 36.2 % (39.0-53.0) L 08/29/20 06:12 MCV 91.6 fL (80.0-100.0) 08/29/20 06:12 MCH 31.4 pg (25.0-35.0) 08/29/20 06:12 MCHC 34.3 g/dL (31.0-37.0) 08/29/20 06:12 RDW 15.0 % (11.5-15.5) 08/29/20 06:12 Plt Count 75 k/uL (150-450) L D 08/29/20 06:12 MPV 10.0 08/29/20 06:12 Neutrophils % 28 % 08/29/20 06:12 Lymphocytes % 48 % 08/29/20 06:12 Monocytes % 14 % 08/29/20 06:12 Eosinophils % 5 % 08/29/20 06:12 Basophils % 1 % 08/29/20 06:12 Neutrophils # 1.0 k/uL (1.3-7.7) L 08/29/20 06:12 Lymphocytes # 1.7 k/uL (1.0-4.8) 08/29/20 06:12 Monocytes # 0.5 k/uL (0-1.0) 08/29/20 06:12 Eosinophils # 0.2 k/uL (0-0.7) 08/29/20 06:12 Basophils # 0.0 k/uL (0-0.2) 08/29/20 06:12 Manual Slide Review Performed 08/29/20 06:12 Sodium 140 mmol/L (137-145) 08/29/20 06:12 Potassium 4.1 mmol/L (3.5-5.1) 08/29/20 06:12 Chloride 107 mmol/L (98-107) 08/29/20 06:12 Carbon Dioxide 26 mmol/L (22-30) 08/29/20 06:12 Anion Gap 7 mmol/L 08/29/20 06:12 BUN 20 mg/dL (9-20) 08/29/20 06:12 Creatinine 0.75 mg/dL (0.66-1.25) 08/29/20 06:12 Est GFR (CKD-EPI)AfAm >90 (>60 ml/min/1.73 sqM) 08/29/20 06:12 Est GFR (CKD-EPI)NonAf >90 (>60 ml/min/1.73 sqM) 08/29/20 06:12 Glucose 89 mg/dL (74-99) 08/29/20 06:[address] Glu mg/dL 117 08/27/20 07:00 Hemoglobin A1c 5.7 % (4.0-6.0) 08/27/20 07:00 Calcium 10.1 mg/dL (8.4-10.2) 08/29/20 06:12 Total Bilirubin 0.7 mg/dL (0.2-1.3) 08/29/20 06:12 AST 203 U/L (17-59) H 08/29/20 06:12 ALT 200 U/L (4-49) H 08/29/20 06:12 Alkaline Phosphatase 46 U/L (38-126) 08/29/20 06:12 Total Protein 7.3 g/dL (6.3-8.2) 08/29/20 06:12 Albumin 4.2 g/dL (3.5-5.0) 08/29/20 06:12 Triglycerides 86 mg/dL (<150) 08/27/20 07:00 Cholesterol 187 mg/dL (<200) 08/27/20 07:00 LDL Cholesterol, Calc 101 mg/dL (0-99) H 08/27/20 07:00 HDL Cholesterol 69 mg/dL (40-60) H 08/27/20 07:00 TSH 0.719 mIU/L (0.465-4.680) 08/27/20 07:00 Urine Color Yellow 08/26/20 07:27 Urine Appearance Clear (Clear) 08/26/20 07:27 Urine pH 8.0 (5.0-8.0) 08/26/20 07:27 Ur Specific [place] 1.009 (1.001-1.035) 08/26/20 07:27 Urine Protein Negative (Negative) 08/26/20 07:27 Urine Glucose (UA) Negative (Negative) 08/26/20 07:27 Urine Ketones Negative (Negative) 08/26/20 07:27 Urine Blood Negative (Negative) 08/26/20 07:27 Urine Nitrite Negative (Negative) 08/26/20 07:27 Urine Bilirubin Negative (Negative) 08/26/20 07:27 Urine Urobilinogen <2.0 mg/dL (<2.0) 08/26/20 07:27 Ur Leukocyte Esterase Negative (Negative) 08/26/20 07:27 Urine Opiates Screen Not Detected (NotDetected) 08/26/20 07:27 Ur Oxycodone Screen Not Detected (NotDetected) 08/26/20 07:27 Urine Methadone Screen Not Detected (NotDetected) 08/26/20 07:27 Ur Propoxyphene Screen Not Detected (NotDetected) 08/26/20 07:27 Ur Barbiturates Screen Not Detected (NotDetected) 08/26/20 07:27 U Tricyclic Antidepress Not Detected (NotDetected) 08/26/20 07:27 Ur Phencyclidine Scrn Not Detected (NotDetected) 08/26/20 07:27 Ur Amphetamines Screen Not Detected (NotDetected) 08/26/20 07:27 U Methamphetamines Scrn Not Detected (NotDetected) 08/26/20 07:27 U Benzodiazepines Scrn Not Detected (NotDetected) 08/26/20 07:27 Urine Cocaine Screen Not Detected (NotDetected) 08/26/20 07:27 U Marijuana (THC) Screen Not Detected (NotDetected) 08/26/20 07:27 Coronavirus (PCR) Not Detected (Not Detectd) 08/26/20 13:24 Vital Signs Temp 98 F 08/31/20 00:54 Pulse 133 H 08/31/20 08:30 Resp 18 08/31/20 08:30 BP 107/68 08/31/20 08:30 Pulse Ox 97 08/28/20 04:54 Patient Condition at Discharge: Stable Plan - Discharge Summary New Discharge Prescriptions: New traZODone HCL [Desyrel] 200 mg PO HS 30 Days tab Multivitamins, Thera [Multivitamin (formulary)] 1 each PO DAILY 30 Days tab Thiamine [Vitamin B-1] 100 mg PO DAILY 30 Days tab DULoxetine HCL [Cymbalta] 60 mg PO DAILY 30 Days capsule. Nicotine 14Mg/24Hr Patch [Habitrol] 1 patch TRANSDERM DAILY 14 Days patch Pantoprazole [Protonix] 40 mg PO DAILY 30 Days tablet. Acetaminophen Tab [Tylenol] 650 mg PO Q4HR PRN tab PRN Reason: Pain/Discomfort Continue Buprenorphine HCl/Naloxone HCl [Suboxone 8 mg-2 mg Sl Film] 1 film SL BID PRN PRN Reason: ADDICTION Albuterol Sulfate [Proair Hfa] 2 puff INHALATION RT-QID PRN PRN Reason: Shortness Of Breath Loratadine [Claritin] 10 mg PO DAILY PRN PRN Reason: Allergy Symptoms Ibuprofen [Motrin] 800 mg PO Q8H PRN PRN Reason: Pain Or Fever > 100.5 busPIRone HCL 15 mg PO BID 30 Days tab Discontinued clonazePAM 0.5 mg PO HS Ipratropium [place] [Atrovent Hfa] 2 puff INHALATION RT-QID PRN PRN Reason: Shortness Of Breath Omeprazole Magnesium [PriLOSEC] 20 mg PO DAILY Multivitamins, Thera [Multivitamin (formulary)] 1 tab PO DAILY Docusate [Colace] 100 mg PO TID traZODone HCL 300 mg PO HS Discharge Medication List Buprenorphine HCl/Naloxone HCl [Suboxone 8 mg-2 mg Sl Film] 1 film SL BID PRN 03/06/20 [History] Albuterol Sulfate [Proair Hfa] 2 puff INHALATION RT-QID PRN 06/26/20 [History] Ibuprofen [Motrin] 800 mg PO Q8H PRN 06/26/20 [History] Loratadine [Claritin] 10 mg PO DAILY PRN 06/26/20 [History] Acetaminophen Tab [Tylenol] 650 mg PO Q4HR PRN tab 08/31/20 [Rx] DULoxetine HCL [Cymbalta] 60 mg PO DAILY 30 Days capsule. 08/31/20 [Rx] Multivitamins, Thera [Multivitamin (formulary)] 1 each PO DAILY 30 Days tab 08/31/20 [Rx] Nicotine 14Mg/24Hr Patch [Habitrol] 1 patch TRANSDERM DAILY 14 Days patch 08/31/20 [Rx] Pantoprazole [Protonix] 40 mg PO DAILY 30 Days tablet. 08/31/20 [Rx] Thiamine [Vitamin B-1] 100 mg PO DAILY 30 Days tab 08/31/20 [Rx] busPIRone HCL 15 mg PO BID 30 Days tab 08/31/20 [Rx] traZODone HCL [Desyrel] 200 mg PO HS 30 Days tab 08/31/20 [Rx] Follow up Appointment(s)/Referral(s): [facility] [NON-STAFF] - 1 Week Patient Instructions/Handouts: How to Stop Smoking (DC), Depression (DC), Alcohol Intoxication (DC) Activity/Diet/Wound Care/Special Instructions: Activity and diet as tolerated. Avoid the use of street drugs and alcohol. Take all medications as prescribed. When you are in need of refills on your medications please contact your medical provider and/or outpatient psychiatrist to have this done. Please go to scheduled outpatient appointment for aftercare treatment. If symptoms return or become worse, call the crisis line at and/or go to the nearest emergency room for evaluation. Discharge Disposition: HOME SELF-CARE
== END 2020-08-31 15:45 | disposition home or self-care (01) | DRG 885 ==
LOC: EC 06:57 → 3MHU 14:49
PROVIDERS: ADMIT Psychiatry & Neurology Psychiatry; ATTEND Psychiatry & Neurology Psychiatry
DX: F31.9 Bipolar disorder, unspecified (principal); R45.851 Suicidal ideations; F17.200 Nicotine dependence, unspecified, uncomplicated; F41.9 Anxiety disorder, unspecified; F60.89 Other specific personality disorders; G40.909 Epilepsy, unspecified, not intractable, without status epilepticus; G47.00 Insomnia, unspecified; J44.9 Chronic obstructive pulmonary disease, unspecified; M41.9 Scoliosis, unspecified; Z79.899 Other long term (current) drug therapy; Z82.5 Family history of asthma and other chronic lower respiratory diseases; Z20.822 Contact with and (suspected) exposure to COVID-19
CPT/HCPCS: 80053; 80061; 80306; 81003; 82075; 83036; 84443; 85025; 87635; 99285

== ENCOUNTER 2020-09-12 20:26 | Inpatient (IN) | payer OTHER ==
--- NOTE | 2020-09-12 21:05 | ED ---
Psych HPI - General Chief Complaint: Psychiatric Symptoms Stated Complaint: ETOH Time Seen by Provider: 09/12/20 20:33 Source: patient, RN notes reviewed Mode of arrival: wheelchair Limitations: no limitations - History of Present Illness Initial Comments: 40-year-old male patient presents to the emergency room with complaints of suicidal ideation and alcohol abuse. Patient states he wants to be put into a detox facility. has been drinking all his life, drinks 1-1/2 pints a day or 2 fifths. Patient states he is homeless and came to the emergency room so that he could be admitted for detox. Patient states he is just tired of life. Plan to jump into the river. Patient takes Suboxone, trazodone and buspirone. has not been eating and has lost a significant amount of weight. Patient also has a history of COPD, GERD, seizures with alcohol detox. He is legally blind in his left eye. MD Complaint: suicidal ideation (Wants to jump into the river) -: year(s) Associated Psychiatric Symptoms: depression, suicidal ideation History of same: Yes ( was at [facility] months ago for detox) Quality: getting worse Context: recent alcohol abuse, significant life stressor (homelessness) Associated Symptoms: other (anorexia) Treatments Prior to Arrival: none If Self Harm: admits thoughts of self harm, has plan (plan to jump into river) - Related Data Home Medications Medication Instructions Recorded Confirmed Buprenorphine HCl/Naloxone HCl 1 film SL BID PRN 03/06/20 08/26/20 [Suboxone 8 mg-2 mg Sl Film] Albuterol Sulfate [Proair Hfa] 2 puff INHALATION RT-QID PRN 06/26/20 08/26/20 Ibuprofen [Motrin] 800 mg PO Q8H PRN 06/26/20 08/26/20 Loratadine [Claritin] 10 mg PO DAILY PRN 06/26/20 08/26/20 Previous Rx's Medication Instructions Recorded Acetaminophen Tab [Tylenol] 650 mg PO Q4HR PRN tab 08/31/20 DULoxetine HCL [Cymbalta] 60 mg PO DAILY 30 Days capsule. 08/31/20 Multivitamins, Thera [Multivitamin 1 each PO DAILY 30 Days tab 08/31/20 (formulary)] Nicotine 14Mg/24Hr Patch [Habitrol] 1 patch TRANSDERM DAILY 14 Days 08/31/20 patch Pantoprazole [Protonix] 40 mg PO DAILY 30 Days tablet. 08/31/20 Thiamine [Vitamin B-1] 100 mg PO DAILY 30 Days tab 08/31/20 busPIRone HCL 15 mg PO BID 30 Days tab 08/31/20 traZODone HCL [Desyrel] 200 mg PO HS 30 Days tab 08/31/20 Allergies Allergy/AdvReac Type Severity Reaction Status Date / Time No Known Allergies Allergy Verified 09/12/20 20:31 Review of Systems ROS Statement: Those systems with pertinent positive or pertinent negative responses have been documented in the HPI. ROS Other: All systems not noted in ROS Statement are negative. Past Medical History Past Medical History: COPD, GERD/Reflux, Seizure Disorder Additional Past Medical History / Comment(s): Alcoholism , pt has scoliosis as a child History of Any Multi-Drug Resistant Organisms: None Reported Past Surgical History: No Surgical Hx Reported Additional Past Surgical History / Comment(s): Strabismus surgery as a child- Left eye surgery. blind in left eye Past Anesthesia/Blood Transfusion Reactions: No Reported Reaction Past Psychological History: Anxiety, Bipolar, Depression Smoking Status: Current every day smoker Past Alcohol Use History: Abuse, Daily, Heavy Past Drug Use History: None Reported - Past Family History Father Family Medical History: COPD Additional Family Medical History / Comment(s): Father is alive in his 50s with history of COPD. Sister(s) Additional Family Medical History / Comment(s): He has 5 sisters and one has drug abuse issues. Patient does not have any brothers. He has one 5-year-old daughter. Mother History Unknown: Yes Additional Family Medical History / Comment(s): Mother is alive in her 50s with no major medical problems. General Exam Limitations: no limitations, altered mental status (Alcohol intoxication) General appearance: alert, in no apparent distress, appears intoxicated, cachectic Head exam: Present: atraumatic, normocephalic, normal inspection Eye exam: Present: normal appearance, EOMI (Legally blind in left eye with surgical history as a child). Absent: scleral icterus, conjunctival injection, periorbital swelling, periorbital tenderness Pupils: Present: miosis ENT exam: Present: normal exam, normal oropharynx, mucous membranes moist Neck exam: Present: normal inspection, full ROM. Absent: tenderness, meningismus, lymphadenopathy, thyromegaly Respiratory exam: Present: normal lung sounds bilaterally. Absent: respiratory distress, wheezes, rales, rhonchi, stridor, chest wall tenderness, accessory muscle use, decreased breath sounds Cardiovascular Exam: Present: tachycardia, normal heart sounds. Absent: JVD GI/Abdominal exam: Present: soft, normal bowel sounds. Absent: distended, tenderness, guarding, rebound, rigid, mass, hernia Extremities exam: Present: normal inspection, full ROM, normal capillary refill. Absent: tenderness, pedal edema, joint swelling, calf tenderness Back exam: Present: normal inspection, full ROM. Absent: tenderness, CVA tenderness (R), CVA tenderness (L) Neurological exam: Present: alert, oriented X3, CN II-XII intact Psychiatric exam: Present: normal affect, depressed Skin exam: Present: warm, dry, intact, normal color. Absent: rash, cyanosis, diaphoretic, erythema, petechiae, pallor, mottled Course Vital Signs 09/12/20 20:28 Temperature 97.9 F Pulse Rate 115 H Respiratory 20 Rate Blood Pressure 121/75 O2 Sat by Pulse 99 Oximetry Medical Decision Making - Medical Decision Making Alcohol level 0.286, hemoglobin and hematocrit 10.9 and 34.6 compared to hemoglobin of 12.4 and 36.0, ALT 62, AST 61. Case discussed with , will admit patient for acute alcohol intoxication and suicidal ideation Dr. Maldonado. - Lab Data Result diagrams: 09/12/20 21:42 09/12/20 21:42 Lab Results 09/12/20 09/12/20 09/12/20 Range/Units 21:42 21:42 21:42 WBC 3.0 L (3.8-10.6) k/uL RBC 3.66 L (4.30-5.90) m/uL Hgb 10.9 L (13.0-17.5) gm/dL Hct 34.6 L (39.0-53.0) % MCV 94.4 (80.0-100.0) fL MCH 29.8 (25.0-35.0) pg MCHC 31.6 (31.0-37.0) g/dL RDW 15.3 (11.5-15.5) % Plt Count 162 D (150-450) k/uL MPV 8.7 Neutrophils % 29 % Lymphocytes % 56 % Monocytes % 8 % Eosinophils % 3 % Basophils % 2 % Neutrophils # 0.9 L (1.3-7.7) k/uL Lymphocytes # 1.7 (1.0-4.8) k/uL Monocytes # 0.2 (0-1.0) k/uL Eosinophils # 0.1 (0-0.7) k/uL Basophils # 0.1 (0-0.2) k/uL Sodium 145 (137-145) mmol/L Potassium 4.3 (3.5-5.1) mmol/L Chloride 107 (98-107) mmol/L Carbon Dioxide 29 (22-30) mmol/L Anion Gap 9 mmol/L BUN 13 (9-20) mg/dL Creatinine 0.68 (0.66-1.25) mg/dL Est GFR (CKD-EPI)AfAm >90 (>60 ml/min/1.73 sqM) Est GFR (CKD-EPI)NonAf >90 (>60 ml/min/1.73 sqM) Glucose 96 (74-99) mg/dL Calcium 9.1 (8.4-10.2) mg/dL Total Bilirubin 0.3 (0.2-1.3) mg/dL AST 61 H (17-59) U/L ALT 62 H (4-49) U/L Alkaline Phosphatase 41 (38-126) U/L Total Protein 7.1 (6.3-8.2) g/dL Albumin 4.1 (3.5-5.0) g/dL Urine Opiates Screen Not Detected (NotDetected) Ur Oxycodone Screen Not Detected (NotDetected) Urine Methadone Screen Not Detected (NotDetected) Ur Propoxyphene Screen Not Detected (NotDetected) Ur Barbiturates Screen Not Detected (NotDetected) U Tricyclic Antidepress Not Detected (NotDetected) Ur Phencyclidine Scrn Not Detected (NotDetected) Ur Amphetamines Screen Not Detected (NotDetected) U Methamphetamines Scrn Not Detected (NotDetected) U Benzodiazepines Scrn Detected H (NotDetected) Urine Cocaine Screen Not Detected (NotDetected) U Marijuana (THC) Screen Not Detected (NotDetected) Serum Alcohol 285 H* mg/dL Disposition Clinical Impression: Acute alcohol intoxication, Alcohol abuse, Suicidal ideation Disposition: ADMITTED IP TO THIS HOSP Condition: Fair Referrals: Yusef Hemphill MD [Primary Care Provider] - 1-2 days Decision Date: 09/12/20 Decision Time: 23:20
[2020-09-12] MEDS ORDERED: LORazepam 2 MG/ML INJ IV PRN (21:07)
[2020-09-12] MEDS ORDERED: THIAMINE 100 MG/ML 2 ML VIAL IM STA (21:07)
[2020-09-12 22:03] LABS: Basophils # (A) 0.1 k/uL (0-0.2); Basophils % (A) 2 %; Eosinophils # (A) 0.1 k/uL (0-0.7); Eosinophils % (A) 3 %; HCT 34.6 % (39.0-53.0); HGB 10.9 gm/dL (13.0-17.5); Lymphocytes # (A) 1.7 k/uL (1.0-4.8); Lymphocytes % (A) 56 %; MCH 29.8 pg (25.0-35.0); MCHC 31.6 g/dL (31.0-37.0); MCV 94.4 fL (80.0-100.0); Mean Platelet Volume 8.7; Monocytes # (A) 0.2 k/uL (0-1.0); Monocytes % (A) 8 %; Neutrophils # (A) 0.9 k/uL (1.3-7.7); Neutrophils % (A) 29 %; RBC 3.66 m/uL (4.30-5.90); RDW 15.3 % (11.5-15.5)
[2020-09-12] MEDS: LORazepam 2 MG/ML INJ IV PRN (22:06)
[2020-09-12 22:11] LABS: Platelet Count 162 k/uL (150-450)
[2020-09-12 22:27] LABS: ALT 62 U/L (4-49); AST 61 U/L (17-59); African American GFR (CKD) >90 (>60 ml/min/1.73 sqM); Albumin 4.1 g/dL (3.5-5.0); Alkaline Phosphatase 41 U/L (38-126); Anion Gap 9 mmol/L; Blood Urea Nitrogen 13 mg/dL (9-20); Calcium 9.1 mg/dL (8.4-10.2); Carbon Dioxide 29 mmol/L (22-30); Chloride 107 mmol/L (98-107); Glucose 96 mg/dL (74-99); Non-African American GFR(CKD) >90 (>60 ml/min/1.73 sqM); Potassium 4.3 mmol/L (3.5-5.1); Sodium 145 mmol/L (137-145); Total Bilirubin 0.3 mg/dL (0.2-1.3); Total Protein 7.1 g/dL (6.3-8.2)
[2020-09-12 22:42] LABS: Amphetamine Screen,Urine Not Detected (NotDetected); Barbiturate Screen,Urine Not Detected (NotDetected); Benzodiazepines Screen,Urine Detected (NotDetected); Cocaine Screen,Urine Not Detected (NotDetected); Methadone Screen, Urine Not Detected (NotDetected); Opiate Screen,Urine Not Detected (NotDetected); Oxycodone Screen, Urine Not Detected (NotDetected); Phencyclidine Screen,Urine Not Detected (NotDetected); Tricyclic Antidepressant,Urine Not Detected (NotDetected); Urn Cannabinoid Scrn Not Detected (NotDetected)
[2020-09-12 22:49] LABS: Alcohol 285 mg/dL
[2020-09-12] MEDS ORDERED: ACETAMINOPHEN TAB 325 MG TAB PO PRN (23:20)
[2020-09-12] MEDS ORDERED: NALOXONE 0.4 MG/ML 1 ML VIAL IV PRN (23:20)
[2020-09-13] MEDS: LORazepam 2 MG/ML INJ IV PRN ×6 (03:23→20:53)
[2020-09-13] MEDS: THIAMINE 100 MG TAB PO SCH ×2 (08:40→20:54)
[2020-09-13] MEDS ORDERED: Buprenorphine Hcl/Naloxone Hcl [Suboxone 8 Mg-2 Mg Sl Film] 1 EACH Fil SUBLINGUAL PRN (09:24)
--- NOTE | 2020-09-13 10:59 | P.HPIM ---
History of Present Illness 40-year-old male is being admitted for alcohol withdrawal. Patient admits to drinking about the one and half pints of alcohol, hard liquor every day. Patient is presently having withdrawals to his last drink was yesterday morning as per the patient patient came in with highly elevated serum alcohol levels as per the ER physician note patient is comparing of suicidal ideation although patient denied any suicidal ideation to me. Patient had planned to jump over the liver as per the documentation from a ER nurse practitioner. Patient presently doesn't have a sitter because of lack of availability of sitters at this time. Patient does take Suboxone for the opiate abuse. Patient denied any history of hepatitis C, patient was tested for hepatitis in the past and it was negative patient denied any IV drug abuse patient is willing to quit alcohol although it appears patient comes here to ER often. Patient denied any symptoms of GI bleed or acute abdominal pain but gastro-oncology was consulted from ER because of drop in hemoglobin from 12.5-10.9. Review of Systems REVIEW OF SYSTEMS: CONSTITUTIONAL: No fever, no malaise, no fatigue. HEENT: No recent visual problems or hearing problems. Denied any sore throat. CARDIOVASCULAR: No chest pain, orthopnea, PND, no palpitations, no syncope. PULMONARY: No shortness of breath, no cough, no hemoptysis. GASTROINTESTINAL: No diarrhea, no nausea, no vomiting, no abdominal pain. NEUROLOGICAL: No headaches, no weakness, no numbness. HEMATOLOGICAL: Denies any bleeding or petechiae. GENITOURINARY: Denies any burning micturition, frequency, or urgency. MUSCULOSKELETAL/RHEUMATOLOGICAL: Denies any joint pain, swelling, or any muscle pain. ENDOCRINE: Denies any polyuria or polydipsia. The rest of the 14-point review of systems is negative. Past Medical History Past Medical History: COPD, GERD/Reflux, Seizure Disorder Additional Past Medical History / Comment(s): Alcoholism , pt has scoliosis as a child History of Any Multi-Drug Resistant Organisms: None Reported Past Surgical History: No Surgical Hx Reported Additional Past Surgical History / Comment(s): Strabismus surgery as a child-L eft eye surgery. blind in left eye Past Anesthesia/Blood Transfusion Reactions: No Reported Reaction Past Psychological History: Anxiety, Bipolar, Depression Smoking Status: Current every day smoker Past Alcohol Use History: Abuse, Daily, Heavy Past Drug Use History: None Reported - Past Family History Father Family Medical History: COPD Additional Family Medical History / Comment(s): Father is alive in his 50s with history of COPD. Sister(s) Additional Family Medical History / Comment(s): He has 5 sisters and one has drug abuse issues. Patient does not have any brothers. He has one 5-year-old daughter. Mother History Unknown: Yes Additional Family Medical History / Comment(s): Mother is alive in her 50s with no major medical problems. Medications and Allergies Home Medications Medication Instructions Recorded Confirmed Type Buprenorphine HCl/Naloxone HCl 1 film SL BID 03/06/20 09/13/20 History [Suboxone 8 mg-2 mg Sl Film] Albuterol Sulfate [Proair Hfa] 2 puff INHALATION RT-QID PRN 06/26/20 09/13/20 History Loratadine [Claritin] 10 mg PO DAILY PRN 06/26/20 09/13/20 History DULoxetine HCL [Cymbalta] 60 mg PO DAILY 30 Days capsule. 08/31/20 09/13/20 Rx Thiamine [Vitamin B-1] 100 mg PO DAILY 30 Days tab 08/31/20 09/13/20 Rx busPIRone HCL 15 mg PO BID 30 Days tab 08/31/20 09/13/20 Rx Ibuprofen [Motrin] 600 mg PO DAILY PRN 09/13/20 09/13/20 History Multivitamins, Thera [Multivitamin 1 tab PO DAILY 09/13/20 09/13/20 History (formulary)] Omeprazole 20 mg PO DAILY 09/13/20 09/13/20 History clonazePAM [KlonoPIN] 0.5 mg PO DAILY PRN 09/13/20 09/13/20 History traZODone HCL 300 mg PO HS 09/13/20 09/13/20 History Allergies Allergy/AdvReac Type Severity Reaction Status Date / Time No Known Allergies Allergy Verified 09/13/20 09:43 Physical Exam Vitals: Vital Signs Temp Pulse Resp BP Pulse Ox 09/13/20 06:17 97.5 F L 83 16 103/66 98 09/12/20 20:28 97.9 F 115 H 20 121/75 99 Intake and Output 09/12/20 09/13/20 09/13/20 22:59 06:59 14:59 Other: Weight 58.967 kg PHYSICAL EXAMINATION: GENERAL: The patient is alert and oriented x3, not in any acute distress. Well developed, well nourished. HEENT: Pupils are round and equally reacting to light. EOMI. No scleral icterus. No conjunctival pallor. Normocephalic, atraumatic. No pharyngeal erythema. No thyromegaly. CARDIOVASCULAR: S1 and S2 present. No murmurs, rubs, or gallops. PULMONARY: Chest is clear to auscultation, no wheezing or crackles. ABDOMEN: Soft, nontender, nondistended, normoactive bowel sounds. No palpable organomegaly. MUSCULOSKELETAL: No joint swelling or deformity. EXTREMITIES: No cyanosis, clubbing, or pedal edema. NEUROLOGICAL: Gross neurological examination did not reveal any focal deficits. SKIN: No rashes. Results CBC & Chem 7: 09/12/20 21:42 09/12/20 21:42 Labs: Abnormal Lab Results - Last 24 Hours (Table) 09/12/20 09/12/20 09/12/20 Range/Units 21:42 21:42 21:42 WBC 3.0 L (3.8-10.6) k/uL RBC 3.66 L (4.30-5.90) m/uL Hgb 10.9 L (13.0-17.5) gm/dL Hct 34.6 L (39.0-53.0) % Neutrophils # 0.9 L (1.3-7.7) k/uL AST 61 H (17-59) U/L ALT 62 H (4-49) U/L U Benzodiazepines Scrn Detected H (NotDetected) Serum Alcohol 285 H* mg/dL Assessment and Plan Plan: -Alcohol withdrawal: Patient will be continued on Ativan CIWA protocol. 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 -Opiate abuse in the past for which patient is on Suboxone which will be continued -Counseling regarding alcohol abuse was provided -DVT prophylaxis Lovenox
[2020-09-13] MEDS: PANTOPRAZOLE 40 MG/10 ML VIAL IVP SCH (12:03)
[2020-09-13 12:47] LABS: HCT 36.1 % (39.0-53.0); HGB 11.4 gm/dL (13.0-17.5); MCH 30.1 pg (25.0-35.0); MCHC 31.6 g/dL (31.0-37.0); MCV 95.3 fL (80.0-100.0); Mean Platelet Volume 7.4; Platelet Count 216 k/uL (150-450); RBC 3.79 m/uL (4.30-5.90); RDW 15.4 % (11.5-15.5); WBC 3.4 k/uL (3.8-10.6)
--- NOTE | 2020-09-13 14:21 | P.CN ---
Psychiatric Consult - . Consult date: 09/13/20 Consult:: IDENTIFYING DATA: This patient is a 40-year-old single male with a significant history of alcohol use and opiate dependence who presented to the hospital for alcohol intoxication and withdrawal. HISTORY OF PRESENT ILLNESS: The patient presented to the hospital on 09/13/2020 admitted for alcohol withdrawal. Psychiatry is consulted as the patient apparently verbalized that he was tired of life and had a plan to jump into a river. When evaluated by this physician, patient is currently not reporting any suicidal or homicidal ideation, intention, and/or plan. He expresses his desire is just to get over his withdrawal symptoms. He currently expresses future orientation, and is looking forward to his bank card being sent to him so that he may have access to funds and obtain housing for himself. He also reports that he has been following up with [facility] and that he has been adherent with his home medications of Suboxone, trazodone, BuSpar, and Cymbalta. He does endorse depressive symptoms but it is uncertain at this time whether he expresses these depressive symptoms in the context of sobriety. He is currently not reporting any significant symptoms of michelle or hypomania. He denies any increase in goal-directed activity, pressured speech, or mood swings. He is not reporting any auditory or visual hallucinations. He denies any paranoia or other delusions. Patient does have significant history of substance abuse. The patient reports that his been drinking up to a pint and a half of hard liquor every day. He does have a history of severe alcohol withdrawal. Furthermore, the patient is also receiving clonazepam and Suboxone from his outpatient primary care provider. The patient also smokes 1 pack per day of tobacco. The patient denies any illicit drug use. PAST PSYCHIATRIC HISTORY: Patient has a a history of . Patient denies being on any psychiatric medications. Patient denies any previous psychiatric hospitalizations. Patient denies any psychiatric outpatient follow-up. Patient denies any history of suicide attempts in the past. PAST MEDICAL HISTORY: Past Medical History: COPD, GERD/Reflux, Seizure Disorder Additional Past Medical History / Comment(s): Alcoholism , pt has scoliosis as a child History of Any Multi-Drug Resistant Organisms: None Reported Past Surgical History: No Surgical Hx Reported Additional Past Surgical History / Comment(s): Strabismus surgery as a child- Left eye surgery. blind in left eye Past Anesthesia/Blood Transfusion Reactions: No Reported Reaction Past Psychological History: Anxiety, Bipolar, Depression Smoking Status: Current every day smoker Past Alcohol Use History: Abuse, Daily, Heavy Past Drug Use History: None Reported ALLERGIES: NO KNOWN DRUG ALLERGIES CHEMICAL DEPENDENCY HISTORY: as per HPI. FAMILY PSYCHIATRIC/SUBSTANCE USE HISTORY: denies SOCIAL HISTORY: Patient was born and raised in [facility]. Patient currently lives in [place] with his friend/roommate. He is otherwise homeless. The patient reports graduating high school. He has an 8-year-old daughter. He is currently unemployed. MENTAL STATUS EXAM: General Appearance: Patient appears to be stated age is alert, pleasant, and cooperative. Patient appears to have fair hygiene and grooming wearing hospital gown with poor eye contact. Behavior: Patient is calmly lying in bed without any agitated behavior. Psychomotor activity appears to be elevated. Speech: Patient's speech is fluent and nonpressured. Low in volume, monotone, and nonspontaneous. Mood/Affect: Patient reports their mood is "just going through withdrawals", affect is malaised. Suicidality/Homicidality: Patient is denying any suicidal or homicidal ideation, intention, and/or plan. Perceptions: Patient denies any visual hallucinations and denies any auditory hallucinations Though content/process: There is no evidence of any delusional thought content and thought process is linear and goal-directed. Memory and concentration: AOX3, grossly intact for the purposes of this session. 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 At this time, the patient is not reporting any suicidal or homicidal ideation, intention, and/or plan. The patient is future oriented and expresses a strong desire to live so that he may obtain his funds and find his own future place as well as go to [facility] for mental health treatment. The patient has not had any prior attempts at suicide. Risk factors for this patient include his current living situation, alcohol use disorder, and race demographic. -Would recommend the following medication changes/additions: We will reinitiate his home medications of trazodone 300 mg by mouth at bedtime, BuSpar 15 mg by mouth twice a day, and Cymbalta 60 mg by mouth daily. -Continue CIWA protocol for alcohol withdrawal. Last CIWA score of 3. -Recommend outpatient psychotherapy/psychiatry follow-up. -Psychiatry will sign off at this point, please contact with any questions. 09/13/20 14:21
--- NOTE | 2020-09-13 14:34 | P.CONS ---
History of Present Illness - Reason for Consult Consult date: 09/13/20 Drop in hemoglobin Requesting physician: Isatu Smith - Chief Complaint Alcohol withdrawal - History of Present Illness This a 40-year-old white male who presented to the emergency department for alcohol withdrawal. He states he's been drinking a pint to one fifth a day for at least the last 20 years. He has a past medical history of COPD, GERD, seizures with alcohol detoxification, depression and is legally blind in the left eye. He had an elevated serum alcohol level of 284 on admission. Gastroenterology was consulted for a drop in his hemoglobin. He had a previous hemoglobin in August 2020 and was 12.4, admission hemoglobin was noted to be 10.9, hematocrit 34.6, platelets 162,000, and WBC 3.0. The patient denies any history or current signs or symptoms of GI bleed. He denies abdominal pain, nausea, or vomiting. He states he has normal brown stools, can be loose at times. Denies any rectal bleeding or hematemesis. He denies any history of peptic ulcer disease or GI bleed in the past. He denies taking any NSAIDs or anticoagulation. He denies being told he has liver disease or elevated liver enzymes in the past. He was noted to have a total bilirubin of 0.3, alt clamp phosphatase 41, AST 61, ALT 62. States he has no history of hepatitis denies any IV drug use in the past Review of Systems Eyes: left decreased vision, denies blurred vision, denies pain Ears, nose, mouth and throat: Denies headache, Denies sore throat Cardiovascular: Denies chest pain, Denies shortness of breath Respiratory: Denies cough Gastrointestinal: Denies abdominal pain, Denies BRBPR, Denies coffee ground emesis, Denies diarrhea, Denies hematemesis, Denies hematochezia, Denies melena, Denies nausea, Denies vomiting Musculoskeletal: Denies myalgias Integumentary: Denies pruritus, Denies rash Neurological: Denies numbness, Denies weakness Psychiatric: Reports depression Endocrine: Denies fatigue, Denies weight change Past Medical History Past Medical History: COPD, GERD/Reflux, Seizure Disorder Additional Past Medical History / Comment(s): Alcoholism , pt has scoliosis as a child History of Any Multi-Drug Resistant Organisms: None Reported Past Surgical History: No Surgical Hx Reported Additional Past Surgical History / Comment(s): Strabismus surgery as a child- Left eye surgery. blind in left eye Past Anesthesia/Blood Transfusion Reactions: No Reported Reaction Past Psychological History: Anxiety, Bipolar, Depression Smoking Status: Current every day smoker Past Alcohol Use History: Abuse, Daily, Heavy Past Drug Use History: None Reported - Past Family History Father Family Medical History: COPD Additional Family Medical History / Comment(s): Father is alive in his 50s with history of COPD. Sister(s) Additional Family Medical History / Comment(s): He has 5 sisters and one has drug abuse issues. Patient does not have any brothers. He has one 5-year-old daughter. Mother History Unknown: Yes Additional Family Medical History / Comment(s): Mother is alive in her 50s with no major medical problems. Medications and Allergies Home Medications Medication Instructions Recorded Confirmed Type Buprenorphine HCl/Naloxone HCl 1 film SL BID 03/06/20 09/13/20 History [Suboxone 8 mg-2 mg Sl Film] Albuterol Sulfate [Proair Hfa] 2 puff INHALATION RT-QID PRN 06/26/20 09/13/20 History Loratadine [Claritin] 10 mg PO DAILY PRN 06/26/20 09/13/20 History DULoxetine HCL [Cymbalta] 60 mg PO DAILY 30 Days capsule. 08/31/20 09/13/20 Rx Thiamine [Vitamin B-1] 100 mg PO DAILY 30 Days tab 08/31/20 09/13/20 Rx busPIRone HCL 15 mg PO BID 30 Days tab 08/31/20 09/13/20 Rx Ibuprofen [Motrin] 600 mg PO DAILY PRN 09/13/20 09/13/20 History Multivitamins, Thera [Multivitamin 1 tab PO DAILY 09/13/20 09/13/20 History (formulary)] Omeprazole 20 mg PO DAILY 09/13/20 09/13/20 History clonazePAM [KlonoPIN] 0.5 mg PO DAILY PRN 09/13/20 09/13/20 History traZODone HCL 300 mg PO HS 09/13/20 09/13/20 History Allergies Allergy/AdvReac Type Severity Reaction Status Date / Time No Known Allergies Allergy Verified 09/13/20 09:43 Physical Exam Vitals: Vital Signs Temp Pulse Resp BP Pulse Ox 09/13/20 11:59 83 16 117/79 98 09/13/20 06:17 97.5 F L 83 16 103/66 98 09/12/20 20:28 97.9 F 115 H 20 121/75 99 Intake and Output 09/12/20 09/13/20 09/13/20 22:59 06:59 14:59 Other: Weight 58.967 kg General appearance: The patient is alert, oriented, appears in no acute distress. HET: Head is normocephalic and atraumatic. Oropharynx is clear without lesions. Neck: Supple without lymphadenopathy. Trachea midline. Heart: S1 S2. Regular rate and rhythm. Lungs: Clear to auscultation bilaterally Abdomen: Soft, nontender, nondistended with bowel sounds. Guarding or rigidity Extremities: Normal skin color and turgor. No pedal edema. Neurological: No focal deficits. Alert and oriented 3. Results CBC & Chem 7: 09/13/20 11:40 09/12/20 21:42 Labs: Abnormal Lab Results - Last 24 Hours (Table) 09/12/20 09/12/20 09/12/20 Range/Units 21:42 21:42 21:42 WBC 3.0 L (3.8-10.6) k/uL RBC 3.66 L (4.30-5.90) m/uL Hgb 10.9 L (13.0-17.5) gm/dL Hct 34.6 L (39.0-53.0) % Neutrophils # 0.9 L (1.3-7.7) k/uL AST 61 H (17-59) U/L ALT 62 H (4-49) U/L U Benzodiazepines Scrn Detected H (NotDetected) Serum Alcohol 285 H* mg/dL 09/13/20 09/13/20 Range/Units 11:40 11:40 WBC 3.4 L (3.8-10.6) k/uL RBC 3.79 L (4.30-5.90) m/uL Hgb 11.4 L (13.0-17.5) gm/dL Hct 36.1 L (39.0-53.0) % Neutrophils # (1.3-7.7) k/uL AST (17-59) U/L ALT 51 H (4-49) U/L U Benzodiazepines Scrn (NotDetected) Serum Alcohol mg/dL Assessment and Plan (1) Mild anemia Narrative/Plan: This is a 40-year-old white male patient who came into the emergency department for alcohol withdrawal. The patient has a significant history of heavy alcohol abuse last 20 years where he admits to drinking 1 pint to 1/5 a day of hard liquor. 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 He denies any signs or symptoms of GI bleed. No plans for endoscopic evaluation, will order occult stool, repeat CBC, and iron studies. Current Visit: No Status: Acute Code(s): D64.9 - ANEMIA, UNSPECIFIED SNOMED Code(s): 794194185 (2) Alcohol abuse Current Visit: Yes Status: Acute Code(s): F10.10 - ALCOHOL ABUSE, UNCOMPLICATED SNOMED Code(s): 79033635 (3) Alcohol withdrawal Current Visit: No Status: Acute Code(s): F10.239 - ALCOHOL DEPENDENCE WITH WITHDRAWAL, UNSPECIFIED SNOMED Code(s): 748961463 (4) GERD (gastroesophageal reflux disease) Narrative/Plan: Continue Protonix 40 mg twice a day Current Visit: No Status: Acute Priority: Medium Code(s): K21.9 - GASTRO-ESOPHAGEAL REFLUX DISEASE WITHOUT ESOPHAGITIS SNOMED Code(s): 696403482 (5) Pancytopenia Narrative/Plan: And has evidence of 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 Continue symptomatic and supportive care 2. Diet as tolerated 3. Protonix 40 mg twice a day 4. Iron studies, anemia workup 5. Repeat CBC in a.m. 6. No plans for endoscopic evaluation at this time 7. Continue CIWA protocol Thank you for this consultation, we will continue to follow Dr. Carlene Willams I agree with the dictator's note, documented as a scribe by Brittani Sparrow.
[2020-09-13] MEDS: busPIRone HCl 5 MG TAB PO SCH (20:53)
[2020-09-13] MEDS: traZODone HCL 100 MG TAB PO SCH (20:53)
[2020-09-13 21:19] LABS: % Iron Saturation 21.59 (15.00-50.00)
[2020-09-13 21:28] LABS: Ferritin 39.9 ng/mL (22.0-322.0)
[2020-09-13 21:29] LABS: Folate, Serum 10.3 ng/mL
[2020-09-14] MEDS: Buprenorphine Hcl/Naloxone Hcl [Suboxone 8 Mg-2 Mg Sl Film] 1 EACH Fil SUBLINGUAL PRN ×2 (02:44→14:01)
[2020-09-14] MEDS: DULoxetine HCL 60 MG CAPSULE.DR PO SCH (08:47)
[2020-09-14] MEDS: ENOXAPARIN 40 MG/0.4 ML SYRINGE SQ SCH (08:47)
[2020-09-14] MEDS: THIAMINE 100 MG TAB PO SCH ×2 (08:47→17:08)
[2020-09-14] MEDS: busPIRone HCl 5 MG TAB PO SCH ×2 (08:47→22:09)
[2020-09-14] MEDS: PANTOPRAZOLE 40 MG/10 ML VIAL IVP SCH (08:48)
[2020-09-14 09:49] LABS: HCT 35.1 % (39.6-50.0); HGB 11.4 g/dL (13.0-17.0); MCH 30.4 pg (27.0-32.0); MCHC 32.5 g/dL (32.0-37.0); MCV 93.6 fL (80.0-97.0); Mean Platelet Volume 10.4 fL (9.5-12.2); Platelet Count 186 X 10*3/uL (140-440); RBC 3.75 X 10*6/uL (4.40-5.60); RDW 15.2 % (11.5-14.5); WBC 2.74 X 10*3/uL (4.50-10.00)
--- NOTE | 2020-09-14 13:30 | P.PN ---
Subjective Progress Note Date: 09/14/20 Principal diagnosis: Drop in hemoglobin, alcohol withdrawal A 40-year-old white male with a history of alcohol abuse who presented to the emergency department for alcohol withdrawal. He was noted to have a drop in his hemoglobin to 10.8 from previous admission of 12.4. He denies any signs or symptoms of GI bleed. He has had no previous history of peptic ulcer disease or esophageal varices. He states he's never been told that he has liver disease. He is again seen and evaluated today, he is very shaky and agitated. He denies any abdominal pain, nausea, or vomiting. He denies any signs or symptoms of upper or lower GI bleed. Hemoglobin today is stable at 11.4. Objective - Vital Signs Vital signs: Vital Signs Temp 98.3 F 09/14/20 06:50 Pulse 56 L 09/14/20 08:00 Resp 16 09/14/20 08:00 BP 90/58 09/14/20 06:50 Pulse Ox 94 L 09/14/20 06:50 Intake & Output 09/13/20 09/14/20 09/14/20 18:59 06:59 18:59 Intake Total 150 Balance 150 Intake: Oral 150 Other: # Voids 1 - Exam General appearance: The patient is alert, oriented, appears in no acute distress. Patient is very shaky and agitated. HET: Head is normocephalic and atraumatic. Conjunctiva pink. Sclera anicteric. Neck: Supple without lymphadenopathy. Abdomen: Soft, nontender, nondistended with bowel sounds. No guarding or rigidity. Extremities: Normal skin color and turgor. No pedal edema Skin: No rashes, no jaundice Neurological: No focal deficits. Alert and oriented 3. - Labs CBC & Chem 7: 09/14/20 05:55 09/12/20 21:42 Labs: Abnormal Lab Results - Last 24 Hours (Table) 09/13/20 09/13/20 09/14/20 Range/Units 11:40 11:40 05:55 WBC 3.4 L 2.74 L (3.8-10.6) k/uL RBC 3.79 L 3.75 L (4.30-5.90) m/uL Hgb 11.4 L 11.4 L (13.0-17.5) gm/dL Hct 36.1 L 35.1 L (39.0-53.0) % RDW 15.2 H (11.5-14.5) % ALT 51 H (4-49) U/L Assessment and Plan (1) Mild anemia Narrative/Plan: This is a 40-year-old white male patient who came into the emergency department for alcohol withdrawal. The patient has a significant history of heavy alcohol abuse last 20 years where he admits to drinking 1 pint to 1/5 a day of hard liquor. 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 He denies any signs or symptoms of GI bleed. No plans for endoscopic evaluation, will order occult stool, repeat CBC, and iron studies. Current Visit: No Status: Acute Code(s): D64.9 - ANEMIA, UNSPECIFIED SNOMED Code(s): 457448363 (2) Alcohol abuse Current Visit: Yes Status: Acute Code(s): F10.10 - ALCOHOL ABUSE, UNCOMPLICATED SNOMED Code(s): 41024526 (3) Alcohol withdrawal Current Visit: No Status: Acute Code(s): F10.239 - ALCOHOL DEPENDENCE WITH WITHDRAWAL, UNSPECIFIED SNOMED Code(s): 793458560 (4) GERD (gastroesophageal reflux disease) Narrative/Plan: Continue Protonix 40 mg twice a day Current Visit: No Status: Acute Priority: Medium Code(s): K21.9 - GASTRO- ESOPHAGEAL REFLUX DISEASE WITHOUT ESOPHAGITIS SNOMED Code(s): 893614238 (5) Pancytopenia Narrative/Plan: And has evidence of 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 Continue symptomatic and supportive care 2. Diet as tolerated 3. Protonix 40 mg twice a day 4. Iron studies, anemia workup 5. Repeat CBC in a.m. 6. No plans for endoscopic evaluation at this time 7. Continue CIWA protocol Thank you for this consultation, we will continue to follow Dr. Carlene Willams I agree with the dictator's note, documented as a scribe by Brittani Sparrow.
[2020-09-14 13:41] VITALS: BMI 18.1
--- NOTE | 2020-09-14 15:51 | P.PN ---
Subjective Progress Note Date: 09/14/20 40-year-old male is being admitted for alcohol withdrawal. Patient admits to drinking about the one and half pints of alcohol, hard liquor every day. Patient is presently having withdrawals to his last drink was yesterday morning as per the patient patient came in with highly elevated serum alcohol levels as per the ER physician note patient is comparing of suicidal ideation although patient denied any suicidal ideation to me. Patient had planned to jump over the liver as per the documentation from a ER nurse practitioner. Patient presently doesn't have a sitter because of lack of availability of sitters at this time. Patient does take Suboxone for the opiate abuse. Patient denied any history of hepatitis C, patient was tested for hepatitis in the past and it was negative patient denied any IV drug abuse patient is willing to quit alcohol although it appears patient comes here to ER often. Patient denied any symptoms of GI bleed or acute abdominal pain but gastro-oncology was consulted from ER because of drop in hemoglobin from 12.5-10.9. 09/14/2020 Patient seen and evaluated sleeping although arousable and fatigues easily currently received 2 mg of Ativan and requesting his Suboxone and during that sentence fell asleep. 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 GI evaluated the patient recommending no endoscopic intervention at this time. Hemoglobin 11.4 with no bleeding noted. Discussed with nursing staff about avoiding Ativan and continue to monitor closely on CIWA protocol. Patient is a high risk for multiple rehospitalizations secondary to EtOH. Patient was evaluated by psychiatry recommending outpatient follow-up with [facility] and continue to avoid alcohol. Review of systems: Constitutional: No reports of fatigue, fever, or chills Cardiovascular: No reports of chest pain or palpitations Respiratory: No reports of shortness of breath or cough GI: No reports of nausea, vomiting, or diarrhea, reports decreased appetite but tolerating : No reports of dysuria or retention Neurovascular: No reports of weakness or numbness All medications have been reviewed Objective - Vital Signs Vital signs: Vital Signs Temp 98.1 F 09/14/20 14:44 Pulse 79 09/14/20 14:44 Resp 16 09/14/20 14:44 BP 113/72 09/14/20 14:44 Pulse Ox 97 09/14/20 14:44 Intake & Output 09/13/20 09/14/20 09/14/20 18:59 06:59 18:59 Intake Total 150 240 Balance 150 240 Weight 58.967 kg Intake: Oral 150 240 Other: # Voids 1 - Exam GENERAL: The patient is alert and oriented x3, not in any acute distress. Well developed, well nourished. Lethargic although arousable HEENT: Pupils are round and equally reacting to light. EOMI. No scleral icterus. No conjunctival pallor. Normocephalic, atraumatic. No pharyngeal erythema. No thyromegaly. CARDIOVASCULAR: S1 and S2 present. No murmurs, rubs, or gallops. PULMONARY: Chest is clear to auscultation, no wheezing or crackles. ABDOMEN: Soft, nontender, nondistended, normoactive bowel sounds. No palpable organomegaly. MUSCULOSKELETAL: No joint swelling or deformity. EXTREMITIES: No cyanosis, clubbing, or pedal edema. NEUROLOGICAL: Gross neurological examination did not reveal any focal deficits. SKIN: No rashes. 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 -Opiate abuse in the past for which patient is on Suboxone which will be continued -Counseling regarding alcohol abuse was provided -DVT prophylaxis Lovenox Plan: Continue CIWA protocol and monitor closely. Encourage activity as tolerated and encourage nutrition. Patient instructed to sit up out of the bed with the shades open. Psychiatry has evaluated the patient recommending outpatient follow-up with [facility] and avoid alcohol. Will start Librium taper and discussed with nursing staff about avoiding IV Ativan if possible. Anticipate discharge in 24 hours.
[2020-09-14] MEDS: chlordiazePOXIDE 25 MG CAP PO SCH ×2 (15:58→22:09)
[2020-09-14 21:59] VITALS: RESP 17
[2020-09-14] MEDS: traZODone HCL 100 MG TAB PO SCH (22:09)
[2020-09-15] MEDS: Buprenorphine Hcl/Naloxone Hcl [Suboxone 8 Mg-2 Mg Sl Film] 1 EACH Fil SUBLINGUAL PRN (07:24)
[2020-09-15] MEDS: busPIRone HCl 5 MG TAB PO SCH (07:31)
[2020-09-15] MEDS: DULoxetine HCL 60 MG CAPSULE.DR PO SCH (07:31)
[2020-09-15] MEDS: chlordiazePOXIDE 25 MG CAP PO SCH (07:31)
[2020-09-15] MEDS: PANTOPRAZOLE 40 MG/10 ML VIAL IVP SCH (07:31)
[2020-09-15] MEDS: ENOXAPARIN 40 MG/0.4 ML SYRINGE SQ SCH (07:32)
[2020-09-15] MEDS: THIAMINE 100 MG TAB PO SCH (07:32)
[2020-09-15 07:44] VITALS: BP 95/61; PULSE 73; TEMP 97.6
--- NOTE | 2020-09-15 12:21 | P.PN ---
Subjective Progress Note Date: 09/15/20 Principal diagnosis: Drop in hemoglobin, alcohol withdrawal A 40-year-old white male with a history of alcohol abuse who presented to the emergency department for alcohol withdrawal. He was noted to have a drop in his hemoglobin to 10.8 from previous admission of 12.4. He denies any signs or symptoms of GI bleed. He has had no previous history of peptic ulcer disease or esophageal varices. He is seen and evaluated sleeping in bed, however easily arousable. Continues to deny any signs or symptoms of GI bleed. He denies any abdominal pain, nausea, or vomiting. Plan is for discharge home today. His hemoglobin has remained stable, with a normocytic normochromic mild anemia consistent with anemia of chronic disease. Objective - Vital Signs Vital signs: Vital Signs Temp 97.6 F 09/15/20 07:00 Pulse 73 09/15/20 07:00 Resp 17 09/15/20 07:17 BP 95/61 09/15/20 07:00 Pulse Ox 95 09/15/20 07:00 Intake & Output 09/14/20 09/15/20 09/15/20 18:59 06:59 18:59 Intake Total 240 Balance 240 Weight 58.967 kg Intake: Oral 240 Other: Voiding Method Toilet Toilet # Voids 1 - Exam General appearance: The patient is alert, oriented, appears in no acute distress. Patient is drowsy however easily arousable. HET: Head is normocephalic and atraumatic. Conjunctiva pink. Sclera anicteric. Neck: Supple without lymphadenopathy. Abdomen: Soft, nontender, nondistended with bowel sounds. No guarding or rigidity. Extremities: Normal skin color and turgor. No pedal edema Skin: No rashes, no jaundice Neurological: No focal deficits. Alert and oriented 3. - Labs CBC & Chem 7: 09/14/20 05:55 09/12/20 21:42 Labs: Abnormal Lab Results - Last 24 Hours (Table) 09/14/20 Range/Units 05:55 WBC 2.74 L (4.50-10.00) X 10*3/uL RBC 3.75 L (4.40-5.60) X 10*6/uL Hgb 11.4 L (13.0-17.0) g/dL Hct 35.1 L (39.6-50.0) % RDW 15.2 H (11.5-14.5) % Assessment and Plan (1) Mild anemia Narrative/Plan: This is a 40-year-old white male patient who came into the emergency department for alcohol withdrawal. The patient has a significant history of heavy alcohol abuse last 20 years where he admits to drinking 1 pint to 1/5 a day of hard liquor. 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 He denies any signs or symptoms of GI bleed. No plans for endoscopic evaluation, will order occult stool, repeat CBC, and iron studies. Iron studies reviewed. Patient has normocytic normochromic mild anemia consistent with anemia of chronic disease likely related to liver disease from EtOH abuse. He's had no signs or symptoms of GI bleed with a stable hemoglobin. Current Visit: No Status: Acute Code(s): D64.9 - ANEMIA, UNSPECIFIED SNOMED Code(s): 453688153 (2) Alcohol abuse Current Visit: Yes Status: Acute Code(s): F10.10 - ALCOHOL ABUSE, UNCOMPLICATED SNOMED Code(s): 65482716 (3) Alcohol withdrawal Current Visit: No Status: Acute Code(s): F10.239 - ALCOHOL DEPENDENCE WITH WITHDRAWAL, UNSPECIFIED SNOMED Code(s): 488027450 (4) GERD (gastroesophageal reflux disease) Narrative/Plan: Continue Protonix 40 mg twice a day Current Visit: No Status: Acute Priority: Medium Code(s): K21.9 - GASTRO- ESOPHAGEAL REFLUX DISEASE WITHOUT ESOPHAGITIS SNOMED Code(s): 191221294 (5) Pancytopenia Narrative/Plan: And has evidence of 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 Continue symptomatic and supportive care 2. Diet as tolerated 3. Protonix 40 mg twice a day 4. Iron studies, anemia workup reviewed 5. No plans for endoscopic evaluation at this time 7. Continue [facility] protocol Thank you for this consultation, we sign off at this time Dr. Carlene Willams I agree with the dictator's note, documented as a scribe by Brittani Sparrow.
--- NOTE | 2020-09-15 16:11 | P.DS ---
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 -Opiate abuse in the past for which patient is on Suboxone which will be continued -Counseling regarding alcohol abuse was provided -DVT prophylaxis Discharge disposition Patient is being discharged in a stable condition with guarded prognosis to home. Patient will follow-up with Dr. Hemphill in the outpatient setting upon discharge. Patient is also instructed to follow-up with community mental health in the outpatient setting. Patient will continue with a Librium taper and instructed to avoid alcohol intake upon discharge. Total time taken is greater than 35 minutes. Hospital course 40-year-old male is being admitted for alcohol withdrawal. Patient admits to drinking about the one and half pints of alcohol, hard liquor every day. Patient is presently having withdrawals to his last drink was yesterday morning as per the patient patient came in with highly elevated serum alcohol levels as per the ER physician note patient is comparing of suicidal ideation although patient denied any suicidal ideation to me. Patient had planned to jump over the liver as per the documentation from a ER nurse practitioner. Patient presently doesn't have a sitter because of lack of availability of sitters at this time. Patient does take Suboxone for the opiate abuse. Patient denied any history of hepatitis C, patient was tested for hepatitis in the past and it was negative patient denied any IV drug abuse patient is willing to quit alcohol although it appears patient comes here to ER often. Patient denied any symptoms of GI bleed or acute abdominal pain but gastro-oncology was consulted from ER because of drop in hemoglobin from 12.5-10.9. 09/14/2020 Patient seen and evaluated sleeping although arousable and fatigues easily currently received 2 mg of Ativan and requesting his Suboxone and during that sentence fell asleep. 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 GI evaluated the patient recommending no endoscopic intervention at this time. Hemoglobin 11.4 with no bleeding noted. Discussed with nursing staff about avoiding Ativan and continue to monitor closely on CIWA protocol. Patient is a high risk for multiple rehospitalizations secondary to EtOH. Patient was evaluated by psychiatry recommending outpatient follow-up with [facility] and continue to avoid alcohol. 09/15/2020 Patient is seen in follow-up this morning more awake and alert and has not required any Ativan since yesterday. Patient was started on Librium taper and will provide Librium taper scripts upon discharge. Patient was found to have oxygen on during rounds although not short of breath and oxygen saturations were 98-99% and patient stated he was using the oxygen to help because he didn't have any inhalers as he uses an intermittent inhaler for COPD. Prescription was also provided for a refill on his albuterol inhaler and sent to the pharmacy. [facility] with his primary care provider upon discharge and avoid alcohol intake. Currently no reports of chest pain, shortness of breath, or palpitations. Patient is afebrile. No reports of nausea or vomiting and patient is tolerating diet. Patient will be discharged home today. Guarded prognosis due to high risk for readmissions secondary to EtOH. On exam vital signs are stable. Cardio S1, S2 are muffled. Respiratory system shows diminished breath sounds at the bases with no wheezing or rhonchi noted. Abdomen is soft and nontender. Nervous system shows no focal deficits. Please refer to medication reconciliation sheet for a list of medications. Patient Condition at Discharge: Fair Plan - Discharge Summary Discharge Rx Participant: No New Discharge Prescriptions: New Acetaminophen Tab [Tylenol] 650 mg PO Q6HR PRN tab PRN Reason: Mild Pain Or Fever > 100.5 chlordiazePOXIDE HCl [Librium] 25 mg PO TID 3 Days #12 capsule Continue Buprenorphine HCl/Naloxone HCl [Suboxone 8 mg-2 mg Sl Film] 1 film SL BID Loratadine [Claritin] 10 mg PO DAILY PRN PRN Reason: Allergy Symptoms Thiamine [Vitamin B-1] 100 mg PO DAILY 30 Days tab busPIRone HCL 15 mg PO BID 30 Days tab clonazePAM [KlonoPIN] 0.5 mg PO DAILY PRN PRN Reason: Anxiety Ibuprofen [Motrin] 600 mg PO DAILY PRN PRN Reason: Pain Omeprazole 20 mg PO DAILY DULoxetine HCL [Cymbalta] 60 mg PO DAILY 30 Days capsule. traZODone HCL 300 mg PO HS Multivitamins, Thera [Multivitamin (formulary)] 1 tab PO DAILY Albuterol Sulfate [Proair Hfa] 2 puff INHALATION RT-QID PRN 30 Days #1 inhaler PRN Reason: Shortness Of Breath Discharge Medication List Buprenorphine HCl/Naloxone HCl [Suboxone 8 mg-2 mg Sl Film] 1 film SL BID 03/06/20 [History] Loratadine [Claritin] 10 mg PO DAILY PRN 06/26/20 [History] DULoxetine HCL [Cymbalta] 60 mg PO DAILY 30 Days capsule. 08/31/20 [Rx] Thiamine [Vitamin B-1] 100 mg PO DAILY 30 Days tab 08/31/20 [Rx] busPIRone HCL 15 mg PO BID 30 Days tab 08/31/20 [Rx] Ibuprofen [Motrin] 600 mg PO DAILY PRN 09/13/20 [History] Multivitamins, Thera [Multivitamin (formulary)] 1 tab PO DAILY 09/13/20 [History] Omeprazole 20 mg PO DAILY 09/13/20 [History] clonazePAM [KlonoPIN] 0.5 mg PO DAILY PRN 09/13/20 [History] traZODone HCL 300 mg PO HS 09/13/20 [History] Acetaminophen Tab [Tylenol] 650 mg PO Q6HR PRN tab 09/15/20 [Rx] Albuterol Sulfate [Proair Hfa] 2 puff INHALATION RT-QID PRN 30 Days #1 inhaler 09/15/20 [Rx] chlordiazePOXIDE HCl [Librium] 25 mg PO TID 3 Days #12 capsule 09/15/20 [Rx] Follow up Appointment(s)/Referral(s): Yusef Hemphill MD [Primary Care Provider] - 1-2 days Patient Instructions/Handouts: How to Stop Smoking (DC), Alcohol Intoxication (DC), Abuse of Alcohol (DC) Activity/Diet/Wound Care/Special Instructions: Activity Limited until follow-up Follow up with primary care provider upon discharge Avoid alcohol intake Continue with Librium taper and to not drink while taking Follow-up with community mental health outpatient 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
== END 2020-09-15 13:24 | disposition home or self-care (01) | DRG 897 ==
LOC: EC 20:26 → 6NMEDSUR 23:34 → OBSVTOIN 09-14 14:45
PROVIDERS: ADMIT Internal Medicine; ATTEND Internal Medicine
DX: F10.229 Alcohol dependence with intoxication, unspecified (principal); F11.20 Opioid dependence, uncomplicated; D61.818 Other pancytopenia; R45.851 Suicidal ideations; Z68.1 Body mass index [BMI] 19.9 or less, adult; F10.239 Alcohol dependence with withdrawal, unspecified; D63.8 Anemia in other chronic diseases classified elsewhere; Z71.6 Tobacco abuse counseling; F17.210 Nicotine dependence, cigarettes, uncomplicated; K70.9 Alcoholic liver disease, unspecified; Z71.41 Alcohol abuse counseling and surveillance of alcoholic; F31.9 Bipolar disorder, unspecified; F41.9 Anxiety disorder, unspecified; G40.909 Epilepsy, unspecified, not intractable, without status epilepticus; H54.62 Unqualified visual loss, left eye, normal vision right eye; R63.4 Abnormal weight loss; J44.9 Chronic obstructive pulmonary disease, unspecified; K21.9 Gastro-esophageal reflux disease without esophagitis; K29.20 Alcoholic gastritis without bleeding; M41.9 Scoliosis, unspecified; Y90.8 Blood alcohol level of 240 mg/100 ml or more; Z20.822 Contact with and (suspected) exposure to COVID-19; Z59.0 Homelessness; Z79.899 Other long term (current) drug therapy; Z82.5 Family history of asthma and other chronic lower respiratory diseases; Z81.3 Family history of other psychoactive substance abuse and dependence
CPT/HCPCS: 36415; 80053; 80306; 80320; 82075; 82607; 82728; 82746; 83540; 83550; 84450; 84460; 85025; 85027; 87636; 96372; 96374; 99285

== ENCOUNTER 2020-10-03 11:16 | Inpatient (IN) | payer OTHER ==
[2020-10-03] MEDS ORDERED: SODIUM CHLORIDE 0.9% 1,000 ML IV ONE (11:54)
[2020-10-03] MEDS ORDERED: SODIUM CHLORIDE 0.9% 1,000 ML with MVI, ADULT NO.4 WITH VIT K 10 ML, THIAMINE 100 MG, F... IV ONE ×4 (11:55)
--- NOTE | 2020-10-03 11:58 | ED ---
General Adult HPI - General Chief complaint: Psychiatric Symptoms Stated complaint: Intoxication Time Seen by Provider: 10/03/20 11:20 Source: patient, RN notes reviewed, old records reviewed Mode of arrival: wheelchair Limitations: altered mental status (Secondary to intoxication) - History of Present Illness Initial comments: This is a 40-year-old male who presents emergency Department stating he suicidal and that he also is severely intoxicated. Patient denies any specific plan but he is also heavily intoxicated and does not answer all questions appropriately. Patient states that he also fell down a few steps yesterday. Patient denies any headache patient denies any neck pain patient denies numbness weakness. Patient denies any back pain or abdominal pain. Patient however is extremely intoxicated so the history is not reliable. - Related Data Home Medications Medication Instructions Recorded Confirmed Buprenorphine HCl/Naloxone HCl 1 film SL BID 03/06/20 10/03/20 [Suboxone 8 mg-2 mg Sl Film] Loratadine [Claritin] 10 mg PO DAILY PRN 06/26/20 10/03/20 Ibuprofen [Motrin] 600 mg PO DAILY PRN 09/13/20 10/03/20 Multivitamins, Thera [Multivitamin 1 tab PO DAILY 09/13/20 10/03/20 (formulary)] Omeprazole 20 mg PO DAILY 09/13/20 10/03/20 clonazePAM [KlonoPIN] 0.5 mg PO DAILY PRN 09/13/20 10/03/20 Pantoprazole [Protonix] 40 mg PO DAILY 10/03/20 10/03/20 traZODone HCL [Desyrel] 200 mg PO HS 10/03/20 10/03/20 Previous Rx's Medication Instructions Recorded DULoxetine HCL [Cymbalta] 60 mg PO DAILY 30 Days amber. 08/31/20 Thiamine [Vitamin B-1] 100 mg PO DAILY 30 Days tab 08/31/20 busPIRone HCL 15 mg PO BID 30 Days tab 08/31/20 Acetaminophen Tab [Tylenol] 650 mg PO Q6HR PRN tab 09/15/20 Albuterol Sulfate [Proair Hfa] 2 puff INHALATION RT-QID PRN 30 09/15/20 Days #1 inhaler Allergies Allergy/AdvReac Type Severity Reaction Status Date / Time No Known Allergies Allergy Verified 05/23/21 13:53 Review of Systems ROS Statement: Those systems with pertinent positive or pertinent negative responses have been documented in the HPI. ROS Other: All systems not noted in ROS Statement are negative. Past Medical History Past Medical History: COPD, GERD/Reflux, Seizure Disorder Additional Past Medical History / Comment(s): Alcoholism , pt has scoliosis as a child History of Any Multi-Drug Resistant Organisms: None Reported Past Surgical History: No Surgical Hx Reported Additional Past Surgical History / Comment(s): Strabismus surgery as a child- Left eye surgery. blind in left eye Past Anesthesia/Blood Transfusion Reactions: No Reported Reaction Past Psychological History: Anxiety, Bipolar, Depression Smoking Status: Current every day smoker Past Alcohol Use History: Abuse, Daily, Heavy Past Drug Use History: None Reported - Past Family History Father Family Medical History: COPD Additional Family Medical History / Comment(s): Father is alive in his 50s with history of COPD. Sister(s) Additional Family Medical History / Comment(s): He has 5 sisters and one has drug abuse issues. Patient does not have any brothers. He has one 5-year-old daughter. Mother History Unknown: Yes Additional Family Medical History / Comment(s): Mother is alive in her 50s with no major medical problems. General Exam - General Exam Comments Initial Comments: GENERAL: Patient is well-developed and well-nourished. Patient is nontoxic and well- hydrated and is in no acute distress. Patient is highly intoxicated ENT: Neck is soft and supple. No significant lymphadenopathy is noted. Oropharynx is clear. Moist mucous membranes. Neck has full range of motion without eliciting any pain. EYES: The sclera were anicteric and conjunctiva were pink and moist. Extraocular movements were intact and pupils were equal round and reactive to light. Eyelids were unremarkable. PULMONARY: Unlabored respirations. Good breath sounds bilaterally. No audible rales rhonchi or wheezing was noted. CARDIOVASCULAR: Patient is tachycardic at about 100 beats a minute ABDOMEN: Soft and nontender with normal bowel sounds. No palpable organomegaly was noted. There is no palpable pulsatile mass. SKIN: Patient has superficial abrasions to the forehead and one on the left side of his face under his eye he states he got both of these last night when he fell down a couple steps. NEUROLOGIC: Patient is alert and oriented x3. Cranial nerves II through XII are grossly intact. Motor and sensory are also intact. Normal speech, volume and content. Symmetrical smile. MUSCULOSKELETAL: Normal extremities with adequate strength and full range of motion. No lower extremity swelling or edema. No calf tenderness. LYMPHATICS: No significant lymphadenopathy is noted PSYCHIATRIC: Patient states he suicidal. Limitations: no limitations Course Vital Signs 10/03/20 11:28 Temperature 98.2 F Pulse Rate 103 H Respiratory 20 Rate Blood Pressure 128/83 O2 Sat by Pulse 97 Oximetry Medical Decision Making - Medical Decision Making Patient is extremely intoxicated and will be admitted each [facility]. I spoke with Dr. bal he agreed to admit the patient admitted the patient wrote admitting orders. - Lab Data Result diagrams: 10/03/20 12:29 10/03/20 12:29 Lab Results 10/03/20 10/03/20 Range/Units 12:29 12:29 WBC 4.0 (3.8-10.6) k/uL RBC 4.73 (4.30-5.90) m/uL Hgb 14.0 (13.0-17.5) gm/dL Hct 43.1 (39.0-53.0) % MCV 91.3 (80.0-100.0) fL MCH 29.6 (25.0-35.0) pg MCHC 32.4 (31.0-37.0) g/dL RDW 15.6 H (11.5-15.5) % Plt Count 103 L D (150-450) k/uL MPV 7.9 Neutrophils % 57 % Lymphocytes % 34 % Monocytes % 6 % Eosinophils % 0 % Basophils % 1 % Neutrophils # 2.2 (1.3-7.7) k/uL Lymphocytes # 1.3 (1.0-4.8) k/uL Monocytes # 0.3 (0-1.0) k/uL Eosinophils # 0.0 (0-0.7) k/uL Basophils # 0.1 (0-0.2) k/uL Manual Slide Review Performed RBC Morphology Normal Sodium 144 (137-145) mmol/L Potassium 3.5 (3.5-5.1) mmol/L Chloride 105 (98-107) mmol/L Carbon Dioxide 25 (22-30) mmol/L Anion Gap 14 mmol/L BUN 15 (9-20) mg/dL Creatinine 0.77 (0.66-1.25) mg/dL Est GFR (CKD-EPI)AfAm >90 (>60 ml/min/1.73 sqM) Est GFR (CKD-EPI)NonAf >90 (>60 ml/min/1.73 sqM) Glucose 85 (74-99) mg/dL Calcium 8.5 (8.4-10.2) mg/dL Magnesium 1.5 L (1.6-2.3) mg/dL Total Bilirubin 0.7 (0.2-1.3) mg/dL AST 138 H (17-59) U/L ALT 47 (4-49) U/L Alkaline Phosphatase 89 (38-126) U/L Total Protein 8.5 H (6.3-8.2) g/dL Albumin 5.1 H (3.5-5.0) g/dL Serum Alcohol 435 H* mg/dL Disposition Clinical Impression: Alcohol intoxication, Suicidal ideations Disposition: ADMITTED IP TO THIS HOSP Referrals: Yusef Hemphill MD [REFERRING] - 1-2 days Time of Disposition: 14:02
[2020-10-03 12:43] LABS: Basophils # (A) 0.1 k/uL (0-0.2); Basophils % (A) 1 %; Eosinophils % (A) 0 %; HCT 43.1 % (39.0-53.0); Lymphocytes # (A) 1.3 k/uL (1.0-4.8); Lymphocytes % (A) 34 %; MCH 29.6 pg (25.0-35.0); MCHC 32.4 g/dL (31.0-37.0); MCV 91.3 fL (80.0-100.0); Mean Platelet Volume 7.9; Monocytes # (A) 0.3 k/uL (0-1.0); Monocytes % (A) 6 %; Neutrophils # (A) 2.2 k/uL (1.3-7.7); Neutrophils % (A) 57 %; RBC 4.73 m/uL (4.30-5.90); RDW 15.6 % (11.5-15.5)
[2020-10-03 12:50] LABS: ALT 47 U/L (4-49); AST 138 U/L (17-59); African American GFR (CKD) >90 (>60 ml/min/1.73 sqM); Albumin 5.1 g/dL (3.5-5.0); Alkaline Phosphatase 89 U/L (38-126); Anion Gap 14 mmol/L; Blood Urea Nitrogen 15 mg/dL (9-20); Calcium 8.5 mg/dL (8.4-10.2); Carbon Dioxide 25 mmol/L (22-30); Chloride 105 mmol/L (98-107); Glucose 85 mg/dL (74-99); Magnesium 1.5 mg/dL (1.6-2.3); Non-African American GFR(CKD) >90 (>60 ml/min/1.73 sqM); Potassium 3.5 mmol/L (3.5-5.1); Sodium 144 mmol/L (137-145); Total Bilirubin 0.7 mg/dL (0.2-1.3); Total Protein 8.5 g/dL (6.3-8.2)
[2020-10-03 13:03] LABS: Alcohol 435 mg/dL
[2020-10-03 13:19] LABS: Platelet Count 103 k/uL (150-450)
--- NOTE | 2020-10-03 13:26 | CT ---
EXAMINATION TYPE: CT brain cspine wo con DATE OF EXAM: 10/03/2020 COMPARISON: CT brain March 06, 2020. CT cervical spine January 08, 2019 HISTORY: Fall, Trauma, ETOH withdrawal, headache and neck pain CT DLP: 1268.5 mGycm. Automated Exposure Control for Dose Reduction was Utilized. TECHNIQUE: CT scan of the head and cervical spine are performed without contrast. FINDINGS: There is no acute intracranial hemorrhage, mass effect, or midline shift identified. The ventricles and sulci are within normal limits in size. The globes are intact and the visualized sin uses are clear. Nasal septum remains deviated to right of midline. The calvarium is intact. Cervical spine is visualized in its entirety from C1 through upper thoracic levels and redemonstrates slight scoliotic curvature on coronal images alignment without evidence of acute fracture or disloca tion. Prevertebral soft tissue appears within normal limits. The C1-C2 articulation remains within normal limits though coronal images are not all sent to PACS. Posterior spur disc complex effaces the anterior thecal sac at C3-C4 level similar to prior. Vertebral body heights and disc space heights a re maintained. Prominent anterior spur T1-T2 level redemonstrated. Thyroid gland appears within normal limits. Lung apices redemonstrates scattered blebs bilaterally. IMPRESSION: 1. There is no acute fracture or dislocation evident in the cervical spine. 2. No acute intracranial hemorrhage or midline shift is seen.
--- NOTE | 2020-10-03 13:52 | XR ---
EXAMINATION TYPE: XR chest 1V portable DATE OF EXAM: 10/03/2020 COMPARISON: Chest x-ray June 27, 2020 HISTORY: Fall injury. Trauma. Shortness of breath. EtOH withdrawal. TECHNIQUE: Single AP portable frontal upright view of the chest is obtained. FINDINGS: There is no suspicious new focal air space opacity, pleural effusion, or pneumothorax seen . The cardiac silhouette size remains within normal limits. The osseous structures are intact. IMPRESSION: No acute process. No significant change from prior.
[2020-10-03] MEDS ORDERED: THIAMINE 100 MG/ML 2 ML VIAL IM STA (14:06)
[2020-10-03] MEDS ORDERED: Potassium Replacement Protocol 1 EACH MISC MISCELLANE PRN (14:21)
[2020-10-03] MEDS ORDERED: Magnesium Replacement Protocol 1 EACH MISC MISCELLANE PRN (14:21)
--- NOTE | 2020-10-03 14:25 | P.HPIM ---
History of Present Illness This is a pleasant 40 years old male with past medical history of COPD, GERD, seizure disorder, bipolar and depression, nicotine dependence and alcohol abuse. He is also on Suboxone. He was recently discharged from the hospital earlier this month for alcohol abuse as well and. When I want to see the patient he was sleeping [place] up and then he did not want to be disturbed. Information were taken from the staff and records. pt attempted to enter [facility] today but declined admission due to alcohol intoxication and abuse. Last time he was alcohol as this morning. Patient suspected to have a fall by ED staff, emergency room bedside nurse talk to the patient he did not stated that he fell but there is a small wound in his left cheek but it looks superficial and dry and lie near. Also pt admits to ED staff to suicidal thoughts with plans to jump in [place] looks stable. Labs including CBC, BMP is unremarkable. Magnesium 1.5, AST slightly elevated and dressed or enzymes are unremarkable 0.7. Alcohol level is elevated 435 CT of the brain: No acute hemorrhage or midline shift Chest x-ray, no acute process In the emergency room patient received 1 L of normal saline boluses, replace magnesium and thiamine. Also patient was started on CIWA protocol Review of Systems N/a, patient is sleeping Past Medical History Past Medical History: COPD, GERD/Reflux, Seizure Disorder Additional Past Medical History / Comment(s): Alcoholism , pt has scoliosis as a child History of Any Multi-Drug Resistant Organisms: None Reported Past Surgical History: No Surgical Hx Reported Additional Past Surgical History / Comment(s): Strabismus surgery as a child- Left eye surgery. blind in left eye Past Anesthesia/Blood Transfusion Reactions: No Reported Reaction Past Psychological History: Anxiety, Bipolar, Depression Smoking Status: Current every day smoker Past Alcohol Use History: Abuse, Daily, Heavy Past Drug Use History: None Reported - Past Family History Father Family Medical History: COPD Additional Family Medical History / Comment(s): Father is alive in his 50s with history of COPD. Sister(s) Additional Family Medical History / Comment(s): He has 5 sisters and one has drug abuse issues. Patient does not have any brothers. He has one 5-year-old daughter. Mother History Unknown: Yes Additional Family Medical History / Comment(s): Mother is alive in her 50s with no major medical problems. Medications and Allergies Home Medications Medication Instructions Recorded Confirmed Type Buprenorphine HCl/Naloxone HCl 1 film SL BID 03/06/20 10/03/20 History [Suboxone 8 mg-2 mg Sl Film] Loratadine [Claritin] 10 mg PO DAILY PRN 06/26/20 10/03/20 History DULoxetine HCL [Cymbalta] 60 mg PO DAILY 30 Days capsule. 08/31/20 10/03/20 Rx Thiamine [Vitamin B-1] 100 mg PO DAILY 30 Days tab 08/31/20 10/03/20 Rx busPIRone HCL 15 mg PO BID 30 Days tab 08/31/20 10/03/20 Rx Ibuprofen [Motrin] 600 mg PO DAILY PRN 09/13/20 10/03/20 History Multivitamins, Thera [Multivitamin 1 tab PO DAILY 09/13/20 10/03/20 History (formulary)] Omeprazole 20 mg PO DAILY 09/13/20 10/03/20 History clonazePAM [KlonoPIN] 0.5 mg PO DAILY PRN 09/13/20 10/03/20 History Acetaminophen Tab [Tylenol] 650 mg PO Q6HR PRN tab 09/15/20 10/03/20 Rx Albuterol Sulfate [Proair Hfa] 2 puff INHALATION RT-QID PRN 30 09/15/20 10/03/20 Rx Days #1 inhaler Pantoprazole [Protonix] 40 mg PO DAILY 10/03/20 10/03/20 History traZODone HCL [Desyrel] 200 mg PO HS 10/03/20 10/03/20 History Allergies Allergy/AdvReac Type Severity Reaction Status Date / Time No Known Allergies Allergy Verified 10/03/20 13:53 Physical Exam Vitals: Vital Signs Temp Pulse Resp BP Pulse Ox 10/03/20 11:28 98.2 F 103 H 20 128/83 97 Intake and Output 10/02/20 10/03/20 10/03/20 22:59 06:59 14:59 Other: Weight 68.039 kg -GENERAL: The patient is sleeping and does not want to be disturbed . not in any acute distress. Well developed, well nourished. HEENT: Pupils are round and equally reacting to light. EOMI. No scleral icterus. No conjunctival pallor. Normocephalic, atraumatic. No pharyngeal erythema. No thyromegaly. CARDIOVASCULAR: S1 and S2 present. No murmurs, rubs, or gallops. PULMONARY: Chest is clear to auscultation, no wheezing or crackles. ABDOMEN: Soft, nontender, nondistended, normoactive bowel sounds. No palpable organomegaly. MUSCULOSKELETAL: No joint swelling or deformity. EXTREMITIES: No cyanosis, clubbing, or pedal edema. NEUROLOGICAL: Gross neurological examination did not reveal any focal deficits. SKIN: No rashes. no petechiae. Results CBC & Chem 7: 10/03/20 12:29 10/03/20 12:29 Labs: Abnormal Lab Results - Last 24 Hours (Table) 10/03/20 10/03/20 Range/Units 12: 12: RDW 15.6 H (11.5-15.5) % Plt Count 103 L D (150-450) k/uL Magnesium 1.5 L (1.6-2.3) mg/dL AST 138 H (17-59) U/L Total Protein 8.5 H (6.3-8.2) g/dL Albumin 5.1 H (3.5-5.0) g/dL Serum Alcohol 435 H* mg/dL Assessment and Plan Assessment: Alcohol abuse at-risk of alcohol withdrawal Toxic encephalopathy secondary to above Possible fall with negative CT of the brain depression and bipolar associated with suicidal ideation History of seizure disorder, not on a ED History of GERD Nicotine dependence COPD, no acute exacerbation History of pure W was on Suboxone Plan: This is a pleasant 40 years old male who presents with alcohol abuse and possible fall. Continue with CICT protocol and family. Neuro check for 24 hours Psychiatric consult, sitter at bedside. Patient cannot leave AMA until he is going to be cleared by psychiatry service Labs and medication were reviewed.. Continue same treatment. Continue with symptomatic treatment. Resume home medication. Monitor lytes and vitals. DVT and GI prophylaxis. Further recommendationsas per clinical course of the patient DVT prophylaxis: Subcutaneous heparin GI Prophylaxis: Pepcid PT/OT: Pending Prognosis is guarded
[2020-10-03] MEDS: MAGNESIUM SULFATE-D5W PMX 1 GM in DEXTROSE/WATER 1 100ML.BAG IVPB SCH ×2 (15:49→18:48)
[2020-10-03] MEDS: LORazepam 2 MG/ML INJ IV PRN ×3 (18:44→22:39)
[2020-10-04] MEDS: LORazepam 2 MG/ML INJ IV PRN ×9 (00:07→19:32)
[2020-10-04] MEDS: THIAMINE 100 MG TAB PO SCH ×2 (07:43→15:15)
[2020-10-04] MEDS: SODIUM CHLORIDE 0.9% 1,000 ML IV SCH ×3 (07:45→21:55)
[2020-10-04 09:24] LABS: African American GFR (CKD) 134.9 (60.0-200.0); Anion Gap 8.2 mmol/L (4.00-12.00); BUN/Creat Ratio 17.14 Ratio (12.00-20.00); Calcium 7.8 mg/dL (8.7-10.3); Carbon Dioxide 27.8 mmol/L (21.6-31.8); Magnesium 1.4 mg/dL (1.5-2.4); Non-African American GFR(CKD) 116.4 (60.0-200.0); Potassium 3.6 mmol/L (3.5-5.5)
[2020-10-04] MEDS ORDERED: SODIUM CHLORIDE 0.9% 1,000 ML IV ONE (09:51)
[2020-10-04] MEDS: ONDANSETRON 4 MG/2 ML VIAL IVP PRN (10:05)
[2020-10-04 10:27] LABS: Basophils # (A) 0.02 X 10*3/uL (0.00-0.10); Eosinophils # (A) 0.02 X 10*3/uL (0.04-0.35); HGB 11.1 g/dL (13.0-17.0); Lymphocytes # (A) 0.72 X 10*3/uL (0.90-5.00); Lymphocytes % (A) 35.3 %; MCH 30.4 pg (27.0-32.0); MCHC 33.6 g/dL (32.0-37.0); MCV 90.4 fL (80.0-97.0); Mean Platelet Volume 10.9 fL (9.5-12.2); Monocytes % (A) 14.7 %; Neutrophils # (A) 0.97 X 10*3/uL (1.80-7.70); Neutrophils % (A) 47.5 %; Platelet Count 65 X 10*3/uL (140-440); RBC 3.65 X 10*6/uL (4.40-5.60); RDW 14.8 % (11.5-14.5); WBC 2.04 X 10*3/uL (4.50-10.00)
[2020-10-04] MEDS: IOPAMIDOL CONTRAST (ORAL USE) VIAL PO PRN ×2 (11:11→12:14)
[2020-10-04] MEDS ORDERED: MORPHINE SULFATE 2 MG/ML SYRINGE IVP PRN (11:33)
[2020-10-04] MEDS: MORPHINE SULFATE 4 MG/ML SYRINGE IVP PRN (11:44)
--- NOTE | 2020-10-04 13:04 | CT ---
EXAMINATION TYPE: CT abdomen pelvis wo con DATE OF EXAM: 10/04/2020 HISTORY: Generalized pain vomiting CT DLP: 333 mGycm. Automated Exposure Control for Dose Reduction was Utilized. TECHNIQUE: CT scan of the abdomen and pelvis is performed with oral but without IV contrast. COMPARISON: CT abdomen and pelvis March 06, 2020 FINDINGS: Within the limitations of a non-contrast study, the following observations are made. LUNG BASES: No significant abnormality is appreciated. LIVER/GB: Marked fatty infiltration of liver is redemonstrated. PANCREAS: Possible 1.5 cm hypodense lesion in the distal pancreatic body axial image 28 grossly stabl e from prior study. SPLEEN: No significant abnormality is seen. ADRENALS: No significant abnormality is seen. KIDNEYS: No renal stones or hydronephrosis. BOWEL: Oral contrast to the level of cecum making evaluation of distal bowel slightly suboptimal mode rate to severe wall thickening in the terminal ileum is present. No significant surrounding fat stran ding. Some prominent contrast filled bowel loops in the right mid to lower quadrant with mild dilatat ion up to 3.1 cm. No significant proximal dilated small bowel loops. Patient has little intra-abdomin al fat making evaluation suboptimal. GENITAL ORGANS: Prostate gland not enlarged. Scattered adjacent bilateral pelvic phleboliths redemons trated. Lobulated contour right posterior aspect axial image 78 is unchanged from prior. Finding is t hus likely benign. LYMPH NODES: No greater than 1cm abdominal or pelvic lymph nodes are appreciated. OSSEOUS STRUCTURES: Slight underlying scoliotic curvature or positioning. OTHER: No significant additional abnormality is seen. IMPRESSION: No overall bowel obstruction. Suspect uncomplicated arthritis involving the terminal ileu m causing mild partial distal delay or obstruction. Correlate clinically. Consider Crohn's disease an d other inflammatory and/or infectious etiologies.
--- NOTE | 2020-10-04 14:39 | P.CN ---
Psychiatric Consult - . Consult date: 10/04/20 Consult:: 10/04/20 13:08 IDENTIFYING DATA: This patient is a 40-year-old single male with a significant history of alcohol use and opiate dependence who presented to the hospital for alcohol intoxication and withdrawal. HISTORY OF PRESENT ILLNESS: The patient presented to the hospital intoxicated and apparently made suicidal statements. According to ER report patient was acting inappropriately was a poor historian and displaying signs of severe intoxication. His blood alcohol level was 435 in the ER and AST was elevated. Patient had a computed tomography scan of his head which was negative. Psychiatry is consulted for suicidal thoughts and alcohol use. Patient's nurse claims that patient has been complaining of pain however has been fairly guarded and not talkative today. Patient was seen at the bedside with a sitter sitting beside him and was agreeable to speak to freelance copywriter. He was covered in his blankets and turned to the side. He appears to be fairly thin poor hygiene and grooming. He was also exhibiting signs of tremor in his upper extremities. He claims that he is "not feeling well" and claims that he is having withdrawal anxiety. He states that he is also having stomach pain and claims that he does have acid reflux. He spoke about trying to go to [place] however "got kicked out" and claims that he was released from there because he was "too messed up". He states that then he had to go to the hospital as he was too intoxicated. He claims that he does not remember much of what happened. He claims that this occurred 2 days ago. He states that he has been drinking approximately 2/5 of vodka every day for the past several weeks and has been not eating or taking care of himself. He claims that he does not have any depression today however states that he wants to go to rehab when he is through the withdrawals. He states that his sleep has been poor and appetite as been poor and admits to not taking his medications. He denies any increase in goal-directed activity, pressured speech , or mood swings. He is not reporting any auditory or visual hallucinations. He denies any suicidal or homicidal ideations intent or plan. He denies any paranoia or other delusions. Patient does have significant history of substance abuse. He does have a history of severe alcohol withdrawal. Furthermore, the patient is also receiving clonazepam and Suboxone from his outpatient primary care provider. The patient also smokes 1 pack per day of tobacco. The patient denies any illicit drug use. PAST PSYCHIATRIC HISTORY: Patient has a a history of alcohol abuse and depression/anxiety. Patient was previously on Cymbalta and BuSpar and trazodone. He has had several psychiatric admissions in the past. Patient denies any psychiatric outpatient follow-up. Patient denies any history of suicide attempts in the past. PAST MEDICAL HISTORY: COPD, GERD/Reflux, Seizure Disorder ALLERGIES: NO KNOWN DRUG ALLERGIES CHEMICAL DEPENDENCY HISTORY: as per HPI. FAMILY PSYCHIATRIC/SUBSTANCE USE HISTORY: denies SOCIAL HISTORY: Patient was born and raised in [facility]. Patient currently lives with his father. The patient reports graduating high school. He has an 8-year-old daughter. He is currently unemployed. MENTAL STATUS EXAM: General Appearance: Patient appears to be stated age is alert, fairly uncooperative, guarded/evasive. Patient appears to have poor hygiene and grooming wearing hospital gown with poor eye contact. Behavior: Patient is calmly lying in bed without any agitated behavior. Constricted affect. Speech: Patient's speech is fluent and nonpressured. Soft tone Mood/Affect: Patient reports their mood is "not feeling well", affect is constricted Suicidality/Homicidality: Patient is denying any suicidal or homicidal ideation, intention, and/or plan. Perceptions: Patient denies any visual hallucinations and denies any auditory hallucinations Though content/process: [place], poor historian, positive content. Minimizing his substance abuse Memory and concentration: AOX3, grossly intact for the purposes of this session. Can spell "WORLD" backwards Judgment and insight: Chronically poor IMPRESSIONS: Depressive disorder unspecified rule out secondary to polysubstance abuse Alcohol use disorder, severe, currently in withdrawal Nicotine dependence Opioid dependence History of cluster B personality traits PLAN: -At this time patient DOES NOT meet criteria for inpatient psychiatric admission. -Would recommend the following medication changes/additions: Restarted patient back on Cymbalta 30 mg daily for mood/anxiety, BuSpar 50 mg twice a day for anxiety, trazodone was restarted at 100 mg daily at bedtime for insomnia/mood. Added a standing dose of Librium 25 mg 3 times a day for alcohol withdrawal. -CIWA protocol with PRN Ativan for alcohol withdrawal. Continue to monitor vital signs. -Can discontinue 1:1 sitter at this time as patient is not currently an imminent threat to themselves -Autographer spoke with patient about substance abuse and the harmful effects on medical and mental health, patient verbally understood and agreed. -salvage worker to provide patient substance use treatment resources including AA/NA meetings in the community. -salvage worker to provide patient with access line number to call for inpatient substance rehab -Communicated plan to patient's nurse -Will continue to follow along -Please contact with any questions.
[2020-10-04] MEDS: FOLIC ACID 1 MG TAB PO SCH (15:15)
[2020-10-04] MEDS: DULoxetine HCL 30 MG CAPSULE.DR PO SCH (15:15)
[2020-10-04] MEDS: MULTIVITAMINS, THERA 1 EACH TAB PO SCH (15:15)
[2020-10-04] MEDS: chlordiazePOXIDE 25 MG CAP PO SCH ×2 (15:15→20:09)
--- NOTE | 2020-10-04 17:15 | P.GSCN ---
History of Present Illness Consult date: 10/04/20 History of present illness: 40-year-old male with past history of seizure disorder, bipolar disorder, depression, alcohol abuse, presents to the emergency department with complaints of suicidal ideation, nausea and vomiting and alcohol intoxication. He states that he had his last drink this morning and did have a finding of greater than 400 level of alcohol. He is complaining of abdominal pain and complaints of nausea and vomiting episode. He denies any blood in his emesis. He is somewhat arousable during exam and is answering questions poorly. He states that he has had a colonoscopy in the past. CT of the abdomen and pelvis was performed with concerns of distal small bowel thickening. There does not appear to be any evidence of obstructive pattern. He denies any personal or family history of Crohn's disease or ulcerative colitis. Review of Systems All systems: negative Past Medical History Past Medical History: COPD, GERD/Reflux, Seizure Disorder Additional Past Medical History / Comment(s): Alcoholism , pt has scoliosis as a child History of Any Multi-Drug Resistant Organisms: None Reported Past Surgical History: No Surgical Hx Reported Additional Past Surgical History / Comment(s): Strabismus surgery as a child- Left eye surgery. blind in left eye Past Anesthesia/Blood Transfusion Reactions: No Reported Reaction Past Psychological History: Anxiety, Bipolar, Depression Additional Psychological History / Comment(s): Patient states he has been diagnosed with bipolar. Smoking Status: Current every day smoker Past Alcohol Use History: Abuse, Daily, Heavy Additional Past Alcohol Use History / Comment(s): Patient is a smoker one pack per day since he was 15 years of age. He denies any street drug or marijuana use. 4-5 pints a day Past Drug Use History: None Reported Additional Drug Use History / Comment(s): fentanyl- use 03-19-19. - Past Family History Father Family Medical History: COPD Additional Family Medical History / Comment(s): Father is alive in his 50s with history of COPD. Sister(s) Additional Family Medical History / Comment(s): He has 5 sisters and one has drug abuse issues. Patient does not have any brothers. He has one 5-year-old daughter. Mother History Unknown: Yes Additional Family Medical History / Comment(s): Mother is alive in her 50s with no major medical problems. Medications and Allergies Home Medications Medication Instructions Recorded Confirmed Type Buprenorphine HCl/Naloxone HCl 1 film SL BID 03/06/20 10/03/20 History [Suboxone 8 mg-2 mg Sl Film] Loratadine [Claritin] 10 mg PO DAILY PRN 06/26/20 10/03/20 History DULoxetine HCL [Cymbalta] 60 mg PO DAILY 30 Days capsule. 08/31/20 10/03/20 Rx Thiamine [Vitamin B-1] 100 mg PO DAILY 30 Days tab 08/31/20 10/03/20 Rx busPIRone HCL 15 mg PO BID 30 Days tab 08/31/20 10/03/20 Rx Ibuprofen [Motrin] 600 mg PO DAILY PRN 09/13/20 10/03/20 History Multivitamins, Thera [Multivitamin 1 tab PO DAILY 09/13/20 10/03/20 History (formulary)] Omeprazole 20 mg PO DAILY 09/13/20 10/03/20 History clonazePAM [KlonoPIN] 0.5 mg PO DAILY PRN 09/13/20 10/03/20 History Acetaminophen Tab [Tylenol] 650 mg PO Q6HR PRN tab 09/15/20 10/03/20 Rx Albuterol Sulfate [Proair Hfa] 2 puff INHALATION RT-QID PRN 30 09/15/20 10/03/20 Rx Days #1 inhaler Pantoprazole [Protonix] 40 mg PO DAILY 10/03/20 10/03/20 History traZODone HCL [Desyrel] 200 mg PO HS 10/03/20 10/03/20 History Allergies Allergy/AdvReac Type Severity Reaction Status Date / Time No Known Allergies Allergy Verified 10/03/20 13:53 Surgical - Exam Osteopathic Statement: *. No significant issues noted on an osteopathic structural exam other than those noted in the History and Physical/Consult. Vital Signs Temp Pulse Resp BP Pulse Ox 98.2 F 103 H 20 128/83 97 10/03/20 11:28 10/03/20 11:28 10/03/20 11:28 10/03/20 11:28 10/03/20 11:28 - General no distress - Eyes PERRL - ENT Ecchymosis around orbitals and left cheek - Respiratory normal respiratory effort - Abdomen Abdomen: soft, non tender - Psychiatric oriented to time, oriented to person, oriented to place Results - Labs 10/04/20 05:35 10/04/20 05:35 Abnormal Lab Results - Last 24 Hours (Table) 10/04/20 10/04/20 Range/Units 05:35 05:35 WBC 2.04 L (4.50-10.00) X 10*3/uL RBC 3.65 L (4.40-5.60) X 10*6/uL Hgb 11.1 L (13.0-17.0) g/dL Hct 33.0 L (39.6-50.0) % RDW 14.8 H (11.5-14.5) % Plt Count 65 L (140-440) X 10*3/uL Neutrophils # 0.97 L (1.80-7.70) X 10*3/uL Lymphocytes # 0.72 L (0.90-5.00) X 10*3/uL Eosinophils # 0.02 L (0.04-0.35) X 10*3/uL Calcium 7.8 L (8.7-10.3) mg/dL Magnesium 1.4 L (1.5-2.4) mg/dL Diabetes panel 10/04/20 Range/Units 05:35 Sodium 138 (135-145) mmol/L Potassium 3.6 (3.5-5.5) mmol/L Chloride 102 (96-109) mmol/L Carbon Dioxide 27.8 (21.6-31.8) mmol/L BUN 12.0 (9.0-27.0) mg/dL Creatinine 0.7 (0.6-1.5) mg/dL Glucose 70 (70-110) mg/dL Calcium 7.8 L (8.7-10.3) mg/dL Calcium panel 10/04/20 Range/Units 05:35 Calcium 7.8 L (8.7-10.3) mg/dL Pituitary panel 10/04/20 Range/Units 05:35 Sodium 138 (135-145) mmol/L Potassium 3.6 (3.5-5.5) mmol/L Chloride 102 (96-109) mmol/L Carbon Dioxide 27.8 (21.6-31.8) mmol/L BUN 12.0 (9.0-27.0) mg/dL Creatinine 0.7 (0.6-1.5) mg/dL Glucose 70 (70-110) mg/dL Calcium 7.8 L (8.7-10.3) mg/dL Adrenal panel 10/04/20 Range/Units 05:35 Sodium 138 (135-145) mmol/L Potassium 3.6 (3.5-5.5) mmol/L Chloride 102 (96-109) mmol/L Carbon Dioxide 27.8 (21.6-31.8) mmol/L BUN 12.0 (9.0-27.0) mg/dL Creatinine 0.7 (0.6-1.5) mg/dL Glucose 70 (70-110) mg/dL Calcium 7.8 L (8.7-10.3) mg/dL Assessment and Plan Plan: 40-year-old male with alcohol intoxication and history of alcohol abuse. He had complaints of abdominal pain and CT of the abdomen and pelvis was concerning for thickened distal small bowel loops. At this point, he does not appear to have a surgical abdomen. There is concern for alcohol withdrawal and he is on CIWA protocol. This could be playing a role in abdominal pain, nausea and vomiting. At this point, I would continue to treat the patient for withdrawal and continue with antiemetics as necessary. I recommended clear liquid diet with advancement as tolerated. Based on CT findings, I would recommend an outpatient colonoscopy for further evaluation. No plan for acute surgical intervention, we'll continue to follow and make recommendations based on the patient's clinical progress.
[2020-10-04 19:23] LABS: Albumin 3.4 g/dL (3.80-4.90); Albumin/Globulin Ratio 1.55 (1.60-3.17); Bilirubin, Conjugated 0.2 mg/dL (0.20-0.40); Bilirubin,Unconjugated 0.4 mg/dL; Globulin 2.2 g/dL (1.6-3.3); Total Bilirubin 0.6 mg/dL (0.3-1.2); Total Protein 5.6 g/dL (6.2-8.2)
[2020-10-04] MEDS: traZODone HCL 100 MG TAB PO SCH (20:10)
[2020-10-04] MEDS ORDERED: traZODone HCL 50 MG TAB PO SCH (21:00)
[2020-10-04] MEDS: busPIRone HCl 5 MG TAB PO SCH (21:55)
--- NOTE | 2020-10-05 00:10 | P.PN ---
Subjective This is a pleasant 40 years old male with past medical history of COPD, GERD, seizure disorder, bipolar and depression, nicotine dependence and alcohol abuse. He is also on Suboxone. He was recently discharged from the hospital earlier this month for alcohol abuse as well and. When I want to see the patient he was sleeping [place] up and then he did not want to be disturbed. Information were taken from the staff and records. pt attempted to enter [facility] today but declined admission due to alcohol intoxication and abuse. Last time he was alcohol as this morning. Patient suspected to have a fall by ED staff, emergency room bedside nurse talk to the patient he did not stated that he fell but there is a small wound in his left cheek but it looks superficial and dry and lie near. Also pt admits to ED staff to suicidal thoughts with plans [place] looks stable. Labs including CBC, BMP is unremarkable. Magnesium 1.5, AST slightly elevated and dressed or enzymes are unremarkable 0.7. Alcohol level is elevated 435 CT of the brain: No acute hemorrhage or midline shift Chest x-ray, no acute process In the emergency room patient received 1 L of normal saline boluses, replace magnesium and thiamine. Also patient was started on CIWA protocol 10/05/2020 Patient is awake and alert this morning, a little bit weak. However he was complaining of from right sided abdominal pain and tenderness and vomited wide stuff in the morning. CT of the abdomen and pelvis with oral contrast only showing inflammation of the terminal ileum suspicious for partial obstruction versus inflammation like Crohn's disease versus infection. Surgery team consult obtained and they recommended conservative management and outpatient colonoscopy. Sitter at bedside was discontinued by psychiatrist after evaluated him today, no source of the risk and he was cleared for discharge by psychiatrist Labs showing pancytopenia. BMP is stable, magnesium of the low side Check regular labs, vitamin B-12, ESR/C-reactive protein. Pro-calcitonin Objective - Vital Signs Vital signs: Vital Signs Temp 99.0 F 10/04/20 19:04 Pulse 57 L 10/04/20 19:04 Resp 17 10/04/20 19:04 BP 105/63 10/04/20 19:04 Pulse Ox 98 10/04/20 19:04 Intake & Output 10/04/20 10/04/20 10/05/20 06:59 18:59 06:59 Other: Voiding Method Toilet Toilet # Voids 1 - Exam GENERAL: The patient is alert and oriented x3, not in any acute distress. Well developed, well nourished. HEENT: Pupils are round and equally reacting to light. EOMI. No scleral icterus. No conjunctival pallor. Normocephalic, atraumatic. No pharyngeal erythema. No thyromegaly. CARDIOVASCULAR: S1 and S2 present. No murmurs, rubs, or gallops. PULMONARY: Chest is clear to auscultation, no wheezing or crackles. -ABDOMEN: Soft, right-sided abdominal tenderness , nondistended, normoactive bowel sounds. No palpable organomegaly. MUSCULOSKELETAL: No joint swelling or deformity. EXTREMITIES: No cyanosis, clubbing, or pedal edema. NEUROLOGICAL: Gross neurological examination did not reveal any focal deficits. SKIN: No rashes. no petechiae. - Labs CBC & Chem 7: 10/04/20 05:35 10/04/20 05:35 Labs: Abnormal Lab Results - Last 24 Hours (Table) 10/04/20 10/04/20 10/04/20 Range/Units 05:35 05:35 15:08 WBC 2.04 L (4.50-10.00) X 10*3/uL RBC 3.65 L (4.40-5.60) X 10*6/uL Hgb 11.1 L (13.0-17.0) g/dL Hct 33.0 L (39.6-50.0) % RDW 14.8 H (11.5-14.5) % Plt Count 65 L (140-440) X 10*3/uL Neutrophils # 0.97 L (1.80-7.70) X 10*3/uL Lymphocytes # 0.72 L (0.90-5.00) X 10*3/uL Eosinophils # 0.02 L (0.04-0.35) X 10*3/uL Calcium 7.8 L (8.7-10.3) mg/dL Magnesium 1.4 L (1.5-2.4) mg/dL AST 74 H (14-35) U/L Total Protein 5.6 L (6.2-8.2) g/dL Albumin 3.40 L (3.80-4.90) g/dL Albumin/Globulin Ratio 1.55 L (1.60-3.17) g/dL Assessment and Plan Assessment: Thickening and possible inflammation of the terminal ileum, possible Crohn's versus infectious versus Alcohol abuse at-risk of alcohol withdrawal Toxic encephalopathy secondary to above. Improved Possible fall with negative CT of the brain not active tissue depression and bipolar associated with suicidal ideation. Evaluated by psychiatrist and cleared him for discharge from their mental health perspective History of seizure disorder, not on a ED History of GERD Nicotine dependence COPD, no acute exacerbation History of pure W was on Suboxone Plan: This is a pleasant 40 years old male who presents with alcohol abuse and possible fall. Continue with CIWA protocol and thiamin and vitamins. Also Librium GI team was consulted. Surgeons recommend outpatient colonoscopy on continue with conservative management Patient is cleared for discharge by psychiatrist. Sitter was discontinued also by psychiatrist. Labs and medication were reviewed.. Continue same treatment. Continue with symptomatic treatment. Resume home medication. Monitor lytes and vitals. DVT and GI prophylaxis. Further recommendationsas per clinical course of the patient DVT prophylaxis: Subcutaneous heparin GI Prophylaxis: Pepcid PT/OT: Pending Prognosis is guarded
[2020-10-05] MEDS: LORazepam 2 MG/ML INJ IV PRN ×2 (01:35→05:30)
[2020-10-05] MEDS: MORPHINE SULFATE 4 MG/ML SYRINGE IVP PRN ×4 (02:49→23:05)
[2020-10-05] MEDS: DULoxetine HCL 30 MG CAPSULE.DR PO SCH (09:14)
[2020-10-05] MEDS: busPIRone HCl 5 MG TAB PO SCH ×2 (09:14→20:36)
[2020-10-05] MEDS: MULTIVITAMINS, THERA 1 EACH TAB PO SCH (09:14)
[2020-10-05] MEDS: THIAMINE 100 MG TAB PO SCH ×2 (09:14→17:30)
[2020-10-05] MEDS: chlordiazePOXIDE 25 MG CAP PO SCH ×3 (09:14→22:45)
[2020-10-05] MEDS: FOLIC ACID 1 MG TAB PO SCH (09:14)
[2020-10-05 11:36] LABS: Basophils % (A) 1 %; Eosinophils # (A) 0.1 k/uL (0-0.7); Eosinophils % (A) 3 %; HCT 34.6 % (39.0-53.0); HGB 11.9 gm/dL (13.0-17.5); Lymphocytes # (A) 1.1 k/uL (1.0-4.8); Lymphocytes % (A) 55 %; MCH 31.2 pg (25.0-35.0); MCHC 34.5 g/dL (31.0-37.0); MCV 90.5 fL (80.0-100.0); Mean Platelet Volume 9.7; Monocytes # (A) 0.2 k/uL (0-1.0); Monocytes % (A) 9 %; Neutrophils # (A) 0.6 k/uL (1.3-7.7); Neutrophils % (A) 30 %; RBC 3.82 m/uL (4.30-5.90); RDW 14.7 % (11.5-15.5)
[2020-10-05 11:55] LABS: Platelet Count 51 k/uL (150-450)
[2020-10-05 13:09] LABS: Erythrocyte Sedimentation Rate 5 mm/hr (0-15)
[2020-10-05] MEDS ORDERED: diazePAM 5 MG TAB PO STA (13:37)
--- NOTE | 2020-10-05 13:37 | P.PN ---
Subjective This is a pleasant 40 years old male with past medical history of COPD, GERD, seizure disorder, bipolar and depression, nicotine dependence and alcohol abuse. He is also on Suboxone. He was recently discharged from the hospital earlier this month for alcohol abuse as well and. When I want to see the patient he was sleeping [place] up and then he did not want to be disturbed. Information were taken from the staff and records. pt attempted to enter [facility] today but declined admission due to alcohol intoxication and abuse. Last time he was alcohol as this morning. Patient suspected to have a fall by ED staff, emergency room bedside nurse talk to the patient he did not stated that he fell but there is a small wound in his left cheek but it looks superficial and dry and lie near. Also pt admits to ED staff to suicidal thoughts with plans [place] looks [place]. Labs including CBC, BMP is unremarkable. Magnesium 1.5, AST slightly elevated and dressed or enzymes are unremarkable 0.7. Alcohol level is elevated 435 CT of the brain: No acute hemorrhage or midline shift Chest x-ray, no acute process In the emergency room patient received 1 L of normal saline boluses, replace magnesium and thiamine. Also patient was started on CIWA protocol 10/05/2020 Patient is awake and alert this morning, a little bit weak. However he was complaining of from right sided abdominal pain and tenderness and vomited wide stuff in the morning. CT of the abdomen and pelvis with oral contrast only showing inflammation of the terminal ileum suspicious for partial obstruction versus inflammation like Crohn's disease versus infection. Surgery team consult obtained and they recommended conservative management and outpatient colonoscopy. Sitter at bedside was discontinued by psychiatrist after evaluated him today, no source of the risk and he was cleared for discharge by psychiatrist Labs showing pancytopenia. BMP is stable, magnesium of the low side Check regular labs, vitamin B-12, ESR/C-reactive protein. Pro-calcitonin 10/06/2020 Patient is awake and alert today, lethargic, interactive and follows commands clearly. He still have significant shakiness and his CIWA score ranging between 10 and 27. He going to give him 1 time dose of volume on the top of his Librium and CIWA protocol. No more vomiting and he is unable to eat because of abdominal pain. We going to change his IV fluids to D5 normal saline. His blood pressure is better today 122/65, he is slightly bradycardic but asymptomatic. His labs showing evidence of alcoholic myelosuppression with WBC 2.0, hemoglobin is better at 11.9 and platelets dropping down to 51 secondary probably to alcohol effect. Ammonia level is negative at 27. Pro-calcitonin is mildly elevated at 0.1. ESR is normal C-reactive protein and BMP and magnesium are pending In the meantime patient remains on Librium 25 mg 3 times a day standing dose plus CIWA protocol. D5 normal saline at 75 mL/h, also is on BuSpar, trazodone, Cymbalta admitted by psychiatrist surgery team recommended no surgical intervention and outpatient follow-up for colonoscopy, patient informed. Risks include explained to him including but not limited to the risk of cancer and he verbalized understanding and acceptance GI team to evaluate the patient Objective - Vital Signs Vital signs: Vital Signs Temp 99.1 F 10/05/20 08:00 Pulse 57 L 10/05/20 08:35 Resp 19 10/05/20 08:35 BP 122/69 10/05/20 08:00 Pulse Ox 97 10/05/20 08:00 Intake & Output 10/04/20 10/05/20 10/05/20 18:59 06:59 18:59 Output Total 2 Balance -2 Output: Urine 2 Other: Voiding Method Toilet Toilet Toilet - Exam GENERAL: The patient is alert and oriented x3, not in any acute distress. Well developed, well nourished. HEENT: Pupils are round and equally reacting to light. EOMI. No scleral icterus. No conjunctival pallor. Normocephalic, atraumatic. No pharyngeal erythema. No thyromegaly. CARDIOVASCULAR: S1 and S2 present. No murmurs, rubs, or gallops. PULMONARY: Chest is clear to auscultation, no wheezing or crackles. -ABDOMEN: Soft, right-sided abdominal tenderness , nondistended, normoactive bowel sounds. No palpable organomegaly. MUSCULOSKELETAL: No joint swelling or deformity. EXTREMITIES: No cyanosis, clubbing, or pedal edema. NEUROLOGICAL: Gross neurological examination did not reveal any focal deficits. SKIN: No rashes. no petechiae. - Labs CBC & Chem 7: 10/05/20 11:28 10/04/20 05:35 Labs: Abnormal Lab Results - Last 24 Hours (Table) 10/04/20 10/05/20 10/05/20 Range/Units 15:08 05:51 11:28 WBC 2.0 L (3.8-10.6) k/uL RBC 3.82 L (4.30-5.90) m/uL Hgb 11.9 L (13.0-17.5) gm/dL Hct 34.6 L (39.0-53.0) % Plt Count 51 L D (150-450) k/uL Neutrophils # 0.6 L (1.3-7.7) k/uL AST 74 H (14-35) U/L Total Protein 5.6 L (6.2-8.2) g/dL Albumin 3.40 L (3.80-4.90) g/dL Albumin/Globulin Ratio 1.55 L (1.60-3.17) g/dL Procalcitonin 0.10 H (0.02-0.09) ng/mL Assessment and Plan Assessment: Thickening and possible inflammation of the terminal ileum, possible Crohn's versus infectious versus Alcohol abuse at-risk of alcohol withdrawal Toxic encephalopathy secondary to above. Improved Possible fall with negative CT of the brain not active tissue depression and bipolar associated with suicidal ideation. Evaluated by psychiatrist and cleared him for discharge from their mental health perspective History of seizure disorder, not on a ED History of GERD Nicotine dependence COPD, no acute exacerbation History of pure W was on Suboxone Plan: This is a pleasant 40 years old male who presents with alcohol abuse and possible fall. Continue with CIWA protocol and thiamin and vitamins. [facility]. Patient is cleared for discharge by psychiatrist. Sitter was discontinued also by psychiatrist. surgery team recommended no surgical intervention and outpatient follow-up for colonoscopy Labs and medication were reviewed.. Continue same treatment. Continue with symptomatic treatment. Resume home medication. Monitor lytes and vitals. DVT and GI prophylaxis. Further recommendationsas per clinical course of the patient DVT prophylaxis: Subcutaneous heparin GI Prophylaxis: Pepcid PT/OT: Pending Prognosis is guarded
--- NOTE | 2020-10-05 13:41 | P.PN ---
Progress Note - Text Progress Note Date: 10/05/20 Interval History: Patient was seen today for psychiatric follow-up regarding patient's depression and anxiety and alcohol withdrawal symptoms. Patient was seen at bedside after speaking with the nurse. The nurse claims that patient has been medication seeking and has been receiving Ativan and his Librium for his alcohol withdrawal. Patient was laying in his bed and was awoken by sba underwriter. Patient claims that his appetite is still poor and states that he is still having abdominal pain. He claims that his mood has been mildly improving however still focused on his anxiety. He did have mild tremors in his hand however was sleeping soundly. He states that he did not sleep well last night. She claims that he still wants to go to rehab once he is discharged from the hospital. He is denying any problems with his medications at this time. At this time patient denies any suicidal or homical ideations, intent or plan. Patient denies any auditory, visual hallucinations and denies any paranoia or delusions. Patient denies any side effects from the medications and has been compliant with meds. Mental Status Exam: General Appearance: Patient appears to be stated age is alert, attempts to be more cooperative today. Patient appears to have poor hygiene and grooming wearing hospital gown with poor eye contact. Behavior: Patient is calmly lying in bed without any agitated behavior. Constricted affect. Speech: Patient's speech is fluent and nonpressured. Soft tone Mood/Affect: Patient reports their mood is "a bit better", affect is constricted Suicidality/Homicidality: Patient is denying any suicidal or homicidal ideation, intention, and/or plan. Perceptions: Patient denies any visual hallucinations and denies any auditory hallucinations Though content/process: [place], poverty of content. Logical. Not endorsing any delusions or paranoia. Memory and concentration: AOX3, grossly intact for the purposes of this session. Judgment and insight: Chronically poor, improving mildly Assessment Depressive disorder unspecified rule out secondary to polysubstance abuse Alcohol use disorder, severe, currently in withdrawal Nicotine dependence Opioid dependence History of cluster B personality traits Plan: -At this time patient DOES NOT meet criteria for inpatient psychiatric admission. -Would recommend the following medication changes/additions: Increased Cymbalta 60 mg daily for mood/anxiety, BuSpar 15 mg twice a day for anxiety, continue with trazodone 100 mg daily at bedtime for insomnia/mood. Continue with Librium 25 mg 3 times a day for alcohol withdrawal until Sunday then starting decreased down to 25 mg twice a day. -CIWA protocol with PRN Ativan for alcohol withdrawal. Continue to monitor vital signs. -Lithopone Charger spoke with patient about substance abuse and the harmful effects on medical and mental health, patient verbally understood and agreed. -shake out worker to provide patient substance use treatment resources including AA/NA meetings in the community. -shake out worker to provide patient with access line number to call for inpatient substance rehab -Communicated plan to patient's nurse -At this time psychiatrist will sign off. -Please contact with any questions.
[2020-10-05] MEDS: FUROSEMIDE 10 MG/ML 4 ML VIAL IV SCH (14:02)
[2020-10-05] MEDS: DEXTROSE 5%-0.9% NACL 1,000 ML IV SCH (14:02)
[2020-10-05 15:58] LABS: Folate, Serum 18.1 ng/mL
--- NOTE | 2020-10-05 16:46 | P.CONS ---
History of Present Illness - Reason for Consult Consult date: 10/05/20 Abdominal pain Requesting physician: Bruno E Sheet - Chief Complaint Alcohol intoxication, suicidal ideation - History of Present Illness This is a 40-year-old white male who presented to the emergency department yesterday with severe alcohol intoxication with an blood alcohol level of 435, with reports of suicidal ideation. The patient has a significant history of alc ohol abuse in the past for which she states he drinks 2/5 a day for the past 21 years. Emergency room he started having nausea and vomiting yesterday with pain in the abdomen, he has tremors and shakes. He was recently admitted earlier this month as well with alcohol withdrawal with gastroenterology on consult her drop in his hemoglobin without any signs or symptoms of GI bleed. His WBC is 2.0, hemoglobin 11.9, hematocrit 34.6, platelets 51,000, total bilirubin 0.6, alkaline phosphatase 59, AST 74, ALT 29. A CT of the abdomen and pelvis no overall bowel obstruction. Suspect uncomplicated colitis involving the terminal ileum causing mild partial distal delay or obstruction. Correlate clinically. Consider Crohn's disease and other inflammatory and/or infectious etiologies. He states abdominal pain is improved some, he states he has severe shakes. No nausea or vomiting today. He denied any hematemesis or coffee-ground emesis. Denies any blood per rectum or black tarry stools. He did eat some lunch. He is on [facility] protocol Review of Systems REVIEW OF SYSTEMS: CARDIOPULMONARY: No chest pain or shortness of breath. Gastrointestinal: Diffuse abdominal pain.. No nausea or vomiting. No hematemesis, coffee-ground emesis. No rectal bleeding, or melena. GENITOURINARY: No dysuria or hematuria. MUSCULOSKELETAL: Reports normal range of motion., Joint pain. SKIN: No rashes. No jaundice. ENDOCRINE: No chills, fevers. No excessive weight gain or loss. No polydipsia or polyuria. PSYCHIATRIC: Depression. Suicidal ideation on admission area of a intoxication. NEUROLOGY: No change in mental status. Denies dizziness, headache. ENT: Vision unremarkable. CONSTITUTIONAL: No recent weight loss. Tremors, shakes, alcohol withdrawal. Past Medical History Past Medical History: COPD, GERD/Reflux, Seizure Disorder Additional Past Medical History / Comment(s): Alcoholism , pt has scoliosis as a child History of Any Multi-Drug Resistant Organisms: None Reported Past Surgical History: No Surgical Hx Reported Additional Past Surgical History / Comment(s): Strabismus surgery as a child- Left eye surgery. blind in left eye Past Anesthesia/Blood Transfusion Reactions: No Reported Reaction Past Psychological History: Anxiety, Bipolar, Depression Additional Psychological History / Comment(s): Patient states he has been diagnosed with bipolar. Smoking Status: Current every day smoker Past Alcohol Use History: Abuse, Daily, Heavy Additional Past Alcohol Use History / Comment(s): Patient is a smoker one pack per day since he was 15 years of age. He denies any street drug or marijuana use. 4-5 pints a day Past Drug Use History: None Reported Additional Drug Use History / Comment(s): fentanyl- use 03-19-19. - Past Family History Father Family Medical History: COPD Additional Family Medical History / Comment(s): Father is alive in his 50s with history of COPD. Sister(s) Additional Family Medical History / Comment(s): He has 5 sisters and one has drug abuse issues. Patient does not have any brothers. He has one 5-year-old daughter. Mother History Unknown: Yes Additional Family Medical History / Comment(s): Mother is alive in her 50s with no major medical problems. Medications and Allergies Home Medications Medication Instructions Recorded Confirmed Type Buprenorphine HCl/Naloxone HCl 1 film SL BID 03/06/20 10/03/20 History [Suboxone 8 mg-2 mg Sl Film] Loratadine [Claritin] 10 mg PO DAILY PRN 06/26/20 10/03/20 History DULoxetine HCL [Cymbalta] 60 mg PO DAILY 30 Days capsule. 08/31/20 10/03/20 Rx Thiamine [Vitamin B-1] 100 mg PO DAILY 30 Days tab 08/31/20 10/03/20 Rx busPIRone HCL 15 mg PO BID 30 Days tab 08/31/20 10/03/20 Rx Ibuprofen [Motrin] 600 mg PO DAILY PRN 09/13/20 10/03/20 History Multivitamins, Thera [Multivitamin 1 tab PO DAILY 09/13/20 10/03/20 History (formulary)] Omeprazole 20 mg PO DAILY 09/13/20 10/03/20 History clonazePAM [KlonoPIN] 0.5 mg PO DAILY PRN 09/13/20 10/03/20 History Acetaminophen Tab [Tylenol] 650 mg PO Q6HR PRN tab 09/15/20 10/03/20 Rx Albuterol Sulfate [Proair Hfa] 2 puff INHALATION RT-QID PRN 30 09/15/20 10/03/20 Rx Days #1 inhaler Pantoprazole [Protonix] 40 mg PO DAILY 10/03/20 10/03/20 History traZODone HCL [Desyrel] 200 mg PO HS 10/03/20 10/03/20 History Allergies Allergy/AdvReac Type Severity Reaction Status Date / Time No Known Allergies Allergy Verified 10/03/20 13:53 Physical Exam Vitals: Vital Signs Temp Pulse Resp BP Pulse Ox 10/05/20 14:00 98.4 F 58 L 17 117/76 95 10/05/20 08:35 57 L 19 10/05/20 08:00 99.1 F 57 L 19 122/69 97 10/05/20 02:27 98.2 F 52 L 15 104/67 96 10/04/20 20:00 57 L 17 10/04/20 19:04 99.0 F 57 L 17 105/63 98 Intake and Output 10/05/20 10/05/20 10/05/20 06:59 14:59 22:59 Output Total 2 Balance -2 Output: Urine 2 Other: Voiding Method Toilet General appearance: The patient is alert, oriented, appears in no acute distress. position, shaky. HET: Head is normocephalic and atraumatic. Junk T value pink. Sclera anicteric. Oropharynx is clear without lesions. Neck: Supple without lymphadenopathy. Trachea midline. Heart: S1 S2. Regular rate and rhythm. Lungs: Fair to auscultation. Abdomen: Soft, nontender, nondistended with bowel sounds. No Guarding or rigidity Extremities: Normal skin color and turgor. No rashes. No pedal edema Neurological: No focal deficits. Alert and oriented 3. Results CBC & Chem 7: 10/05/20 11:28 10/04/20 05:35 Labs: Abnormal Lab Results - Last 24 Hours (Table) 10/04/20 10/05/20 10/05/20 Range/Units 15:08 05:51 11:28 WBC 2.0 L (3.8-10.6) k/uL RBC 3.82 L (4.30-5.90) m/uL Hgb 11.9 L (13.0-17.5) gm/dL Hct 34.6 L (39.0-53.0) % Plt Count 51 L D (150-450) k/uL Neutrophils # 0.6 L (1.3-7.7) k/uL AST 74 H (14-35) U/L Total Protein 5.6 L (6.2-8.2) g/dL Albumin 3.40 L (3.80-4.90) g/dL Albumin/Globulin Ratio 1.55 L (1.60-3.17) g/dL Procalcitonin 0.10 H (0.02-0.09) ng/mL CT scan - abdomen: report reviewed (No overall bowel obstruction. Suspect uncomplicated colitis involving the terminal ileum causing mild partial distal delay or obstruction. Correlate clinically. Consider Crohn's disease and other inflammatory and/or infectious etiologies.) Assessment and Plan (1) Abdominal pain Narrative/Plan: This is a 40-year-old male patient who presented to the emergency to department with alcohol intoxication and suicidal ideation. The patient had a blood alcohol level of 435 on presentation. Once he was in the emergency department he started having some nausea and vomiting yesterday with abdominal pain. The patient has a significant history of alcohol abuse and was just admitted earlier this month with alcohol intoxication. He admits to 2/5 a day and has been drinking heavily for 21 years. He presented with abdominal pain which she states is diffuse and started when he started getting the shakes. He is currently going through a call withdrawal and is on the CIWA protocol. CT of the abdomen and pelvis no overall bowel obstruction. Suspect uncomplicated colitis involving the terminal ileum causing mild partial distal delay or obstruction. Correlate clinically. Consider Crohn's disease and other inflamma tory and/or infectious etiologies. Gen. surgery was consulted as well, state they do not believe there is any acute findings, likely abdominal pain is related to his current alcohol withdrawal. No plans for endoscopic evaluation at this time. Current Visit: Yes Status: Acute Code(s): R10.9 - UNSPECIFIED ABDOMINAL PAIN SNOMED Code(s): 70794719 (2) Alcohol intoxication Current Visit: Yes Status: Acute Priority: High Code(s): F10.929 - ALCOHOL USE, UNSPECIFIED WITH INTOXICATION, UNSPECIFIED SNOMED Code(s): 71245857 (3) Alcohol abuse Current Visit: No Status: Acute Code(s): F10.10 - ALCOHOL ABUSE, UNCOMPLICATED SNOMED Code(s): 82486806 (4) Alcohol withdrawal Current Visit: No Status: Acute Code(s): F10.239 - ALCOHOL DEPENDENCE WITH WITHDRAWAL, UNSPECIFIED SNOMED Code(s): 423062282 Plan: 1. Continue symptomatic and supportive care 2. Diet as tolerated 3. Continue CIWA protocol and monitoring for withdrawal symptoms 4. Recommend alcohol cessation 5. CT of abdomen reviewed 6. No plans for endoscopic evaluation at this time, abdominal pain likely r elated to alcohol withdrawal. Consider further evaluation with outpatient colonoscopy once patient stabilizes. 7. Appreciate recommendations from surgical services Thank you for this consultation, we will continue to follow Dr. Carlene Willams I agree with the dictator's note, documented as a scribe by Brittani Sparrow.
[2020-10-05 20:05] LABS: African American GFR (CKD) 143.7 (60.0-200.0); BUN/Creat Ratio 13.33 Ratio (12.00-20.00); C Reactive Protein <0.4 mg/dL (0.0-0.8); Calcium 7.8 mg/dL (8.7-10.3); Carbon Dioxide 20.2 mmol/L (21.6-31.8); Chloride 106 mmol/L (96-109); Glucose 112 mg/dL (70-110); Magnesium 1.3 mg/dL (1.5-2.4); Potassium 3.5 mmol/L (3.5-5.5); Sodium 136 mmol/L (135-145)
[2020-10-05] MEDS: MELATONIN 5 MG TABLET PO SCH (20:36)
[2020-10-05 21:30] LABS: D-Dimer 1.17 mg/L FEU (<0.60); Partial Thromboplastin Time 23.4 sec (22.0-30.0)
--- NOTE | 2020-10-05 22:19 | US ---
EXAMINATION TYPE: US venous doppler duplex LE DATE OF EXAM: 10/05/2020 9:58 PM COMPARISON: NONE CLINICAL HISTORY: history of chronic DVT?. Leg pain. Limited history from patient. SIDE PERFORMED: Bilateral TECHNIQUE: The lower extremity deep venous system is examined utilizing real time linear array sonog horace with graded compression, doppler sonography and color-flow sonography. VESSELS IMAGED: Common Femoral Vein Deep Femoral Vein Greater Saphenous Vein * Femoral Vein Popliteal Vein Small Saphenous Vein * Proximal Calf Veins (* superficial vessels) Limited due to edema. Right Leg: No evidence of DVT in veins imaged at this time. Left Leg: No evidence of DVT in veins imaged at this time. IMPRESSION: No evidence of deep vein thrombosis in both legs.
[2020-10-05] MEDS: traZODone HCL 100 MG TAB PO SCH (22:45)
[2020-10-06 02:15] LABS: Reticulocyte % 1.14 % (0.10-1.80)
[2020-10-06 02:28] LABS: INR 0.99 (0.90-1.11); Prothrombin Time 10.8 sec (9.9-11.9)
[2020-10-06] MEDS: DEXTROSE 5%-0.9% NACL 1,000 ML IV SCH ×2 (04:22→16:48)
[2020-10-06] MEDS: FOLIC ACID 1 MG TAB PO SCH (07:33)
[2020-10-06] MEDS: DULoxetine HCL 60 MG CAPSULE.DR PO SCH (07:33)
[2020-10-06] MEDS: chlordiazePOXIDE 25 MG CAP PO SCH ×3 (07:33→20:52)
[2020-10-06] MEDS: FUROSEMIDE 10 MG/ML 4 ML VIAL IV SCH (07:33)
[2020-10-06] MEDS: MULTIVITAMINS, THERA 1 EACH TAB PO SCH (07:33)
[2020-10-06] MEDS: ONDANSETRON 4 MG/2 ML VIAL IVP PRN (07:33)
[2020-10-06] MEDS: THIAMINE 100 MG TAB PO SCH ×2 (07:33→16:41)
[2020-10-06] MEDS: busPIRone HCl 5 MG TAB PO SCH ×2 (07:33→20:51)
[2020-10-06] MEDS: MORPHINE SULFATE 4 MG/ML SYRINGE IVP PRN ×3 (08:21→20:52)
[2020-10-06 10:45] LABS: African American GFR (CKD) 134.9 (60.0-200.0); Albumin 3.9 g/dL (3.80-4.90); Albumin/Globulin Ratio 1.39 (1.60-3.17); Anion Gap 12.6 mmol/L (4.00-12.00); BUN/Creat Ratio 12.86 Ratio (12.00-20.00); Bilirubin, Conjugated 0.2 mg/dL (0.20-0.40); Bilirubin,Unconjugated 0.4 mg/dL; Calcium 8.8 mg/dL (8.7-10.3); Carbon Dioxide 20.4 mmol/L (21.6-31.8); Globulin 2.8 g/dL (1.6-3.3); Magnesium 1.1 mg/dL (1.5-2.4); Non-African American GFR(CKD) 116.4 (60.0-200.0); Potassium 3.7 mmol/L (3.5-5.5); Total Bilirubin 0.6 mg/dL (0.3-1.2); Total Protein 6.7 g/dL (6.2-8.2)
[2020-10-06] MEDS: PANTOPRAZOLE 40 MG TABLET PO SCH ×2 (11:03→16:41)
[2020-10-06 11:12] LABS: Basophils # (A) 0.02 X 10*3/uL (0.00-0.10); Basophils % (A) 0.9 %; Eosinophils # (A) 0.06 X 10*3/uL (0.04-0.35); Eosinophils % (A) 2.8 %; HCT 38.9 % (39.6-50.0); HGB 13.4 g/dL (13.0-17.0); Lymphocytes # (A) 1.19 X 10*3/uL (0.90-5.00); Lymphocytes % (A) 55.9 %; MCH 30.9 pg (27.0-32.0); MCHC 34.4 g/dL (32.0-37.0); MCV 89.6 fL (80.0-97.0); Mean Platelet Volume 13.4 fL (9.5-12.2); Monocytes # (A) 0.29 X 10*3/uL (0.20-1.00); Monocytes % (A) 13.6 %; Neutrophils # (A) 0.56 X 10*3/uL (1.80-7.70); Neutrophils % (A) 26.3 %; Platelet Count 55 X 10*3/uL (140-440); RBC 4.34 X 10*6/uL (4.40-5.60); RDW 14.3 % (11.5-14.5); WBC 2.13 X 10*3/uL (4.50-10.00)
--- NOTE | 2020-10-06 12:10 | P.PN ---
Subjective This is a pleasant 40 years old male with past medical history of COPD, GERD, seizure disorder, bipolar and depression, nicotine dependence and alcohol abuse. He is also on Suboxone. He was recently discharged from the hospital earlier this month for alcohol abuse as well and. When I want to see the patient he was sleeping [place] up and then he did not want to be disturbed. Information were taken from the staff and records. pt attempted to enter [facility] today but declined admission due to alcohol intoxication and abuse. Last time he was alcohol as this morning. Patient suspected to have a fall by ED staff, emergency room bedside nurse talk to the patient he did not stated that he fell but there is a small wound in his left cheek but it looks superficial and dry and lie near. Also pt admits to ED staff to suicidal thoughts with plans to jump in [place] looks stable. Labs including CBC, BMP is unremarkable. Magnesium 1.5, AST slightly elevated and dressed or enzymes are unremarkable 0.7. Alcohol level is elevated 435 CT of the brain: No acute hemorrhage or midline shift Chest x-ray, no acute process In the emergency room patient received 1 L of normal saline boluses, replace magnesium and thiamine. Also patient was started on CIWA protocol 10/05/2020 Patient is awake and alert this morning, a little bit weak. However he was complaining of from right sided abdominal pain and tenderness and vomited wide stuff in the morning. CT of the abdomen and pelvis with oral contrast only showing inflammation of the terminal ileum suspicious for partial obstruction versus inflammation like Crohn's disease versus infection. Surgery team consult obtained and they recommended conservative management and outpatient colonoscopy. Sitter at bedside was discontinued by psychiatrist after evaluated him today, no source of the risk and he was cleared for discharge by psychiatrist Labs showing pancytopenia. BMP is stable, magnesium of the low side Check regular labs, vitamin B-12, ESR/C-reactive protein. Pro-calcitonin 10/06/2020 Patient is awake and alert today, lethargic, interactive and follows commands clearly. He still have significant shakiness and his CIWA score ranging between 10 and 27. He going to give him 1 time dose of volume on the top of his Librium and CIWA protocol. No more vomiting and he is unable to eat because of abdominal pain. We going to change his IV fluids to D5 normal saline. His blood pressure is better today 122/65, he is slightly bradycardic but asymptomatic. His labs showing evidence of alcoholic myelosuppression with WBC 2.0, hemoglobin is better at 11.9 and platelets dropping down to 51 secondary probably to alcohol effect. Ammonia level is negative at 27. Pro-calcitonin is mildly elevated at 0.1. ESR is normal C-reactive protein and BMP and magnesium are pending In the meantime patient remains on Librium 25 mg 3 times a day standing dose plus CIWA protocol. D5 normal saline at 75 mL/h, also is on BuSpar, trazodone, Cymbalta admitted by psychiatrist surgery team recommended no surgical intervention and outpatient follow-up for colonoscopy, patient informed. Risks include explained to him including but not limited to the risk of cancer and he verbalized understanding and acceptance GI team to evaluate the patient 10/06/2020 Patient is still sleeping most of the time, he still complaining from shakiness of the upper extremities is CIWA score is 5 to 10, he is currently on CIWA protocol and Librium scheduled dose. We going to change his Ativan IV and oral doses as patient noticed exaggerating some of his symptoms. And will keep mon itoring her closely. Also to decrease drowsiness outpatient. He is still with pancytopenia although hemoglobin improved today to 13 his WBCs 2.1K and low platelets are 50 5K. Care Trainer team were consulted B-12 is borderline around 398 so or replacement therapy is initiated. GI and surgery services both of them recommended outpatient colonoscopy, patient informed and he agrees Hematology service for low hemoglobin and platelets. Doppler of the lower extremity is negative for DVT Objective - Vital Signs Vital signs: Vital Signs Temp 98 F 10/06/20 07:23 Pulse 70 10/06/20 07:23 Resp 17 10/06/20 07:23 BP 151/118 10/06/20 07:23 Pulse Ox 96 10/06/20 07:23 Intake & Output 10/05/20 10/06/20 10/06/20 18:59 06:59 18:59 Intake Total 700 Balance 700 Intake: Intake, IV Titration 400 Amount Dextrose 5%-0.9% NaCl 1, 400 000 ml @ 75 mls/hr IV . [id number] [facility] Rx#:[id number] Oral 300 Other: Voiding Method Toilet Toilet # Voids 3 3 - Exam GENERAL: The patient is alert and oriented x3, not in any acute distress. Well developed, well nourished. HEENT: Pupils are round and equally reacting to light. EOMI. No scleral icterus. No conjunctival pallor. Normocephalic, atraumatic. No pharyngeal erythema. No thyromegaly. CARDIOVASCULAR: S1 and S2 present. No murmurs, rubs, or gallops. PULMONARY: Chest is clear to auscultation, no wheezing or crackles. -ABDOMEN: Soft, right-sided abdominal tenderness , nondistended, normoactive bowel sounds. No palpable organomegaly. MUSCULOSKELETAL: No joint swelling or deformity. EXTREMITIES: No cyanosis, clubbing, or pedal edema. NEUROLOGICAL: Gross neurological examination did not reveal any focal deficits. SKIN: No rashes. no petechiae. - Labs CBC & Chem 7: 10/06/20 06:24 10/06/20 06:24 Labs: Abnormal Lab Results - Last 24 Hours (Table) 10/05/20 10/05/20 10/05/20 Range/Units 05:51 05:51 20:54 WBC (4.50-10.00) X 10*3/uL RBC (4.40-5.60) X 10*6/uL Hct (39.6-50.0) % Plt Count (140-440) X 10*3/uL Plt Count Comment MPV (9.5-12.2) fL Neutrophils # (1.80-7.70) X 10*3/uL Immature Plt Fraction (1.1-6.1) % D-Dimer 1.17 H (<0.60) mg/L FEU Carbon Dioxide 20.2 L (21.6-31.8) mmol/L Anion Gap (4.00-12.00) mmol/L BUN 8.0 L (9.0-27.0) mg/dL Glucose 112 H (70-110) mg/dL Calcium 7.8 L (8.7-10.3) mg/dL Magnesium 1.3 L (1.5-2.4) mg/dL AST (14-35) U/L Albumin/Globulin Ratio (1.60-3.17) g/dL Procalcitonin 0.10 H (0.02-0.09) ng/mL 10/06/20 10/06/20 Range/Units 06:24 06:24 WBC 2.13 L (4.50-10.00) X 10*3/uL RBC 4.34 L (4.40-5.60) X 10*6/uL Hct 38.9 L (39.6-50.0) % Plt Count 55 L (140-440) X 10*3/uL Plt Count Comment DECREASED A MPV 13.4 H (9.5-12.2) fL Neutrophils # 0.56 L (1.80-7.70) X 10*3/uL Immature Plt Fraction 8.0 H (1.1-6.1) % D-Dimer (<0.60) mg/L FEU Carbon Dioxide 20.4 L (21.6-31.8) mmol/L Anion Gap 12.60 H (4.00-12.00) mmol/L BUN (9.0-27.0) mg/dL Glucose 141 H (70-110) mg/dL Calcium (8.7-10.3) mg/dL Magnesium 1.1 L (1.5-2.4) mg/dL AST 124 H (14-35) U/L Albumin/Globulin Ratio 1.39 L (1.60-3.17) g/dL Procalcitonin (0.02-0.09) ng/mL Assessment and Plan Assessment: Thickening and possible inflammation of the terminal ileum, possible Crohn's versus infectious versus Alcohol abuse at-risk of alcohol withdrawal Toxic encephalopathy secondary to above. Improved Possible fall with negative CT of the brain not active tissue depression and bipolar associated with suicidal ideation. Evaluated by psychiatrist and cleared him for discharge from their mental health perspective History of seizure disorder, not on a ED History of GERD Nicotine dependence COPD, no acute exacerbation History of pure W was on Suboxone Plan: This is a pleasant 40 years old male who presents with alcohol abuse and possible fall. Continue with CIWA protocol and thiamin and vitamins. Also Librium GI team was consulted. Patient is cleared for discharge by psychiatrist. Sitter was discontinued also by psychiatrist. surgery team recommended no surgical intervention and outpatient follow-up for colonoscopy Labs and medication were reviewed.. Continue same treatment. Continue with symptomatic treatment. Resume home medication. Monitor lytes and vitals. DVT and GI prophylaxis. Further recommendationsas per clinical course of the abilio walker DVT prophylaxis: Subcutaneous heparin GI Prophylaxis: Pepcid PT/OT: Pending Prognosis is guarded
--- NOTE | 2020-10-06 13:34 | P.CONS ---
History of Present Illness - Reason for Consult Consult date: 10/06/20 Anemia/Cytopenia Requesting physician: Bruno E Sheet - Chief Complaint Abdominal Pain/Intoxication - History of Present Illness Broderick is a 40 year old who presented with alcohol intoxication. We have been asked to evaluate for cytopenias and Chronic DVT(?) Review of Systems All systems: negative Constitutional: Reports as per HPI Past Medical History Past Medical History: COPD, GERD/Reflux, Seizure Disorder Additional Past Medical History / Comment(s): Alcoholism , pt has scoliosis as a child History of Any Multi-Drug Resistant Organisms: None Reported Past Surgical History: No Surgical Hx Reported Additional Past Surgical History / Comment(s): Strabismus surgery as a child- Left eye surgery. blind in left eye Past Anesthesia/Blood Transfusion Reactions: No Reported Reaction Past Psychological History: Anxiety, Bipolar, Depression Additional Psychological History / Comment(s): Patient states he has been diagnosed with bipolar. Smoking Status: Current every day smoker Past Alcohol Use History: Abuse, Daily, Heavy Additional Past Alcohol Use History / Comment(s): Patient is a smoker one pack per day since he was 15 years of age. He denies any street drug or marijuana use. 4-5 pints a day Past Drug Use History: None Reported Additional Drug Use History / Comment(s): fentanyl- use 03-19-19. - Past Family History Father Family Medical History: COPD Additional Family Medical History / Comment(s): Father is alive in his 50s with history of COPD. Sister(s) Additional Family Medical History / Comment(s): He has 5 sisters and one has drug abuse issues. Patient does not have any brothers. He has one 5-year-old daughter. Mother History Unknown: Yes Additional Family Medical History / Comment(s): Mother is alive in her 50s with no major medical problems. Medications and Allergies Home Medications Medication Instructions Recorded Confirmed Type Buprenorphine HCl/Naloxone HCl 1 film SL BID 03/06/20 10/03/20 History [Suboxone 8 mg-2 mg Sl Film] Loratadine [Claritin] 10 mg PO DAILY PRN 06/26/20 10/03/20 History DULoxetine HCL [Cymbalta] 60 mg PO DAILY 30 Days capsule. 08/31/20 10/03/20 Rx Thiamine [Vitamin B-1] 100 mg PO DAILY 30 Days tab 08/31/20 10/03/20 Rx busPIRone HCL 15 mg PO BID 30 Days tab 08/31/20 10/03/20 Rx Ibuprofen [Motrin] 600 mg PO DAILY PRN 09/13/20 10/03/20 History Multivitamins, Thera [Multivitamin 1 tab PO DAILY 09/13/20 10/03/20 History (formulary)] Omeprazole 20 mg PO DAILY 09/13/20 10/03/20 History clonazePAM [KlonoPIN] 0.5 mg PO DAILY PRN 09/13/20 10/03/20 History Acetaminophen Tab [Tylenol] 650 mg PO Q6HR PRN tab 09/15/20 10/03/20 Rx Albuterol Sulfate [Proair Hfa] 2 puff INHALATION RT-QID PRN 30 09/15/20 10/03/20 Rx Days #1 inhaler Pantoprazole [Protonix] 40 mg PO DAILY 10/03/20 10/03/20 History traZODone HCL [Desyrel] 200 mg PO HS 10/03/20 10/03/20 History Allergies Allergy/AdvReac Type Severity Reaction Status Date / Time No Known Allergies Allergy Verified 10/03/20 13:53 Physical Exam Vitals: Vital Signs Temp Pulse Resp BP Pulse Ox 10/06/20 07:23 98 F 70 17 151/118 96 10/06/20 02:00 98.8 F 74 18 111/71 98 10/05/20 19:12 99.3 F 75 16 101/66 99 10/05/20 14:00 98.4 F 58 L 17 117/76 95 Intake and Output 10/05/20 10/06/20 10/06/20 22:59 06:59 14:59 Intake Total 700 Balance 700 Intake: Intake, IV Titration 400 Amount Dextrose 5%-0.9% NaCl 1, 400 000 ml @ 75 mls/hr IV . [id number] [facility] Rx#:[id number] Oral 300 Other: Voiding Method Toilet # Voids 3 - Constitutional General appearance: cooperative, no acute distress - EENT Eyes: EOMI ENT: NA/AT - Neck Neck: normal ROM - Respiratory Respiratory: bilateral: CTA - Cardiovascular Rhythm: regular - Gastrointestinal General gastrointestinal: tenderness - Integumentary Integumentary: pale - Neurologic Neurologic: CNII-XII intact - Musculoskeletal Musculoskeletal: generalized weakness, strength equal bilaterally - Psychiatric Lethargic Psychiatric: A&O x's 3 Results CBC & Chem 7: 10/06/20 06:24 10/06/20 06:24 Labs: Abnormal Lab Results - Last 24 Hours (Table) 10/05/20 10/05/20 10/06/20 Range/Units 05:51 20:54 06:24 WBC 2.13 L (4.50-10.00) X 10*3/uL RBC 4.34 L (4.40-5.60) X 10*6/uL Hct 38.9 L (39.6-50.0) % Plt Count 55 L (140-440) X 10*3/uL Plt Count Comment DECREASED A MPV 13.4 H (9.5-12.2) fL Neutrophils # 0.56 L (1.80-7.70) X 10*3/uL Immature Plt Fraction 8.0 H (1.1-6.1) % D-Dimer 1.17 H (<0.60) mg/L FEU Carbon Dioxide 20.2 L (21.6-31.8) mmol/L Anion Gap (4.00-12.00) mmol/L BUN 8.0 L (9.0-27.0) mg/dL Glucose 112 H (70-110) mg/dL Calcium 7.8 L (8.7-10.3) mg/dL Magnesium 1.3 L (1.5-2.4) mg/dL AST (14-35) U/L Albumin/Globulin Ratio (1.60-3.17) g/dL 10/06/20 Range/Units 06:24 WBC (4.50-10.00) X 10*3/uL RBC (4.40-5.60) X 10*6/uL Hct (39.6-50.0) % Plt Count (140-440) X 10*3/uL Plt Count Comment MPV (9.5-12.2) fL Neutrophils # (1.80-7.70) X 10*3/uL Immature Plt Fraction (1.1-6.1) % D-Dimer (<0.60) mg/L FEU Carbon Dioxide 20.4 L (21.6-31.8) mmol/L Anion Gap 12.60 H (4.00-12.00) mmol/L BUN (9.0-27.0) mg/dL Glucose 141 H (70-110) mg/dL Calcium (8.7-10.3) mg/dL Magnesium 1.1 L (1.5-2.4) mg/dL AST 124 H (14-35) U/L Albumin/Globulin Ratio 1.39 L (1.60-3.17) g/dL CT scan - abdomen: report reviewed CT scan - pelvis: report reviewed Assessment and Plan (1) Leukopenia Current Visit: Yes Status: Acute Code(s): D72.819 - DECREASED WHITE BLOOD CELL COUNT, UNSPECIFIED SNOMED Code(s): 74431399 (2) Thrombocytopenia Current Visit: Yes Status: Acute Code(s): D69.6 - THROMBOCYTOPENIA, UNSPECIFIED SNOMED Code(s): 469084275 (3) Abdominal pain Current Visit: Yes Status: Acute Code(s): R10.9 - UNSPECIFIED ABDOMINAL PAIN SNOMED Code(s): 82652348 (4) Alcohol intoxication Current Visit: Yes Status: Acute Priority: High Code(s): F10.929 - ALCOHOL USE, UNSPECIFIED WITH INTOXICATION, UNSPECIFIED SNOMED Code(s): 30846519 (5) Acute alcohol intoxication Current Visit: No Status: Acute Code(s): F10.929 - ALCOHOL USE, UNSPECIFIED WITH INTOXICATION, UNSPECIFIED SNOMED Code(s): 10653465 (6) Acute diarrhea Current Visit: No Status: Acute Code(s): R19.7 - DIARRHEA, UNSPECIFIED SNOMED Code(s): 059041894 (7) Alcohol withdrawal Current Visit: No Status: Acute Code(s): F10.239 - ALCOHOL DEPENDENCE WITH WITHDRAWAL, UNSPECIFIED SNOMED Code(s): 116251767 Plan: CYtopenias: Throbocytopenias: - Secondary to Chronic Alcohol Abuse and bone marrow depression, compoent chronic liver disease - Ok to continue on Prophylaxis ac therapy if greater than 50K and no s/s bleeding History of Chronic DVT: - Could not find the evidence of this and patient was not choosing to answer as he was quite lethargic - Repeat doppler performed - WIll discuss further with primary team, however if ongoing AC therapy is needed regarding DVTs, platelet count is to be greater than 50K Leukopenia: - Secondary to ETOH and Bone Marrow suppression Physician attest: I have completed the full history and physical and agree with above dictation, dictated as a scribe
[2020-10-06] MEDS: CYANOCOBALAMIN 500 MCG TAB PO SCH (13:54)
[2020-10-06 14:28] LABS: % Iron Saturation 18.1 (15.00-50.00)
[2020-10-06 14:39] LABS: Ferritin 238.4 ng/mL (22.0-322.0)
--- NOTE | 2020-10-06 16:17 | P.PN ---
Subjective Progress Note Date: 10/06/20 Principal diagnosis: Alcohol intoxication, abdominal pain This is a 40-year-old male patient who presented to the hospital with alcohol intoxication and abdominal pain. He has been going through withdrawals over the last 2 days. Abdominal pain seems to be improving. He states he did have an episode of vomiting yesterday and one today. States he needs his pain medication and Ativan. He is on CIWA protocol. No acute changes through the night. He denies any black or bloody stools. Denies any hematemesis. He had a spinal bowel movement today which was brown. Objective - Vital Signs Vital signs: Vital Signs Temp 98.3 F 10/06/20 13:51 Pulse 74 10/06/20 13:51 Resp 18 10/06/20 13:51 BP 102/60 10/06/20 13:51 Pulse Ox 96 10/06/20 13:51 Intake & Output 10/05/20 10/06/20 10/06/20 18:59 06:59 18:59 Intake Total 700 Balance 700 Intake: Intake, IV Titration 400 Amount Dextrose 5%-0.9% NaCl 1, 400 000 ml @ 75 mls/hr IV . [id number] [facility] Rx#:[id number] Oral 300 Other: Voiding Method Toilet Toilet # Voids 3 3 - Exam General appearance: The patient is alert, oriented, appears in no acute distress. HET: Head is normocephalic and atraumatic. Conjunctiva pink. Sclera anicteric. Neck: Supple without lymphadenopathy. Abdomen: Soft, diffuse tenderness, nondistended with bowel sounds. No guarding or rigidity. Extremities: Normal skin color and turgor. No pedal edema Skin: No rashes, no jaundice Neurological: No focal deficits. Alert and oriented 3. - Labs CBC & Chem 7: 10/06/20 06:24 10/06/20 06:24 Labs: Abnormal Lab Results - Last 24 Hours (Table) 10/05/20 10/05/20 10/05/20 Range/Units 05:51 20:54 20:54 WBC (4.50-10.00) X 10*3/uL RBC (4.40-5.60) X 10*6/uL Hct (39.6-50.0) % Plt Count (140-440) X 10*3/uL Plt Count Comment MPV (9.5-12.2) fL Neutrophils # (1.80-7.70) X 10*3/uL Immature Plt Fraction (1.1-6.1) % D-Dimer 1.17 H (<0.60) mg/L FEU Carbon Dioxide 20.2 L (21.6-31.8) mmol/L Anion Gap (4.00-12.00) mmol/L BUN 8.0 L (9.0-27.0) mg/dL Glucose 112 H (70-110) mg/dL Calcium 7.8 L (8.7-10.3) mg/dL Magnesium 1.3 L (1.5-2.4) mg/dL Iron 57 L (65-175) ug/dL AST (14-35) U/L Lactate Dehydrogenase 296 H (120-246) U/L Albumin/Globulin Ratio (1.60-3.17) g/dL Vitamin D 25-Hydroxy 29.1 L (30.0-100.0) ng/mL 10/06/20 10/06/20 Range/Units 06:24 06:24 WBC 2.13 L (4.50-10.00) X 10*3/uL RBC 4.34 L (4.40-5.60) X 10*6/uL Hct 38.9 L (39.6-50.0) % Plt Count 55 L (140-440) X 10*3/uL Plt Count Comment DECREASED A MPV 13.4 H (9.5-12.2) fL Neutrophils # 0.56 L (1.80-7.70) X 10*3/uL Immature Plt Fraction 8.0 H (1.1-6.1) % D-Dimer (<0.60) mg/L FEU Carbon Dioxide 20.4 L (21.6-31.8) mmol/L Anion Gap 12.60 H (4.00-12.00) mmol/L BUN (9.0-27.0) mg/dL Glucose 141 H (70-110) mg/dL Calcium (8.7-10.3) mg/dL Magnesium 1.1 L (1.5-2.4) mg/dL Iron (65-175) ug/dL AST 124 H (14-35) U/L Lactate Dehydrogenase (120-246) U/L Albumin/Globulin Ratio 1.39 L (1.60-3.17) g/dL Vitamin D 25-Hydroxy (30.0-100.0) ng/mL Assessment and Plan (1) Abdominal pain Narrative/Plan: This is a 40-year-old male patient who presented to the emergency to department with alcohol intoxication and suicidal ideation. The patient had a blood alcohol level of 435 on presentation. Once he was in the emergency department he started having some nausea and vomiting yesterday with abdominal pain. The patient has a significant history of alcohol abuse and was just admitted earlier this month with alcohol intoxication. He admits to 2/5 a day and has been drinking heavily for 21 years. He presented with abdominal pain which she states is diffuse and started when he started getting the shakes. He is currently going through a call withdrawal and is on the CIWA protocol. CT of the abdomen and pelvis no overall bowel obstruction. Suspect uncomplicated colitis involving the terminal ileum causing mild partial distal delay or obstruction. Correlate clinically. Consider Crohn's disease and other inflammatory and/or infectious etiologies. Gen. surgery was consulted as well, state they do not believe there is any acute findings, likely abdominal pain is related to his current alcohol withdrawal. No plans for endoscopic evaluation at this time. Current Visit: Yes Status: Acute Code(s): R10.9 - UNSPECIFIED ABDOMINAL PAIN SNOMED Code(s): 26112545 (2) Alcohol intoxication Current Visit: Yes Status: Acute Priority: High Code(s): F10.929 - ALCOHOL USE, UNSPECIFIED WITH INTOXICATION, UNSPECIFIED SNOMED Code(s): 84550947 (3) Alcohol abuse Current Visit: No Status: Acute Code(s): F10.10 - ALCOHOL ABUSE, UN COMPLICATED SNOMED Code(s): 55467481 (4) Alcohol withdrawal Current Visit: No Status: Acute Code(s): F10.239 - ALCOHOL DEPENDENCE WITH WITHDRAWAL, UNSPECIFIED SNOMED Code(s): 582644565 Plan: 1. Continue symptomatic and supportive care 2. Diet as tolerated 3. Continue CIWA protocol and monitoring for withdrawal symptoms 4. Recommend alcohol cessation 5. CT of abdomen reviewed 6. No plans for endoscopic evaluation at this time, abdominal pain likely related to alcohol withdrawal. Consider further evaluation with outpatient colonoscopy once patient stabilizes. 7. Appreciate recommendations from surgical services Thank you for this consultation, we will sign off at this time Dr. Carlene Willams I agree with the dictator's note, documented as a scribe by Brittani Sparrow.
[2020-10-06] MEDS: MELATONIN 5 MG TABLET PO SCH (20:52)
[2020-10-06] MEDS: traZODone HCL 100 MG TAB PO SCH (22:18)
[2020-10-07] MEDS: DEXTROSE 5%-0.9% NACL 1,000 ML IV SCH ×2 (06:18→20:57)
[2020-10-07] MEDS: chlordiazePOXIDE 25 MG CAP PO SCH ×2 (07:17→23:32)
[2020-10-07] MEDS: busPIRone HCl 5 MG TAB PO SCH ×2 (07:17→23:31)
[2020-10-07] MEDS: FOLIC ACID 1 MG TAB PO SCH (07:18)
[2020-10-07] MEDS: PANTOPRAZOLE 40 MG TABLET PO SCH ×3 (07:18→17:14)
[2020-10-07] MEDS: DULoxetine HCL 60 MG CAPSULE.DR PO SCH (07:18)
[2020-10-07] MEDS: FUROSEMIDE 10 MG/ML 4 ML VIAL IV SCH (07:19)
[2020-10-07] MEDS: THIAMINE 100 MG TAB PO SCH ×2 (07:19→17:14)
[2020-10-07] MEDS: MULTIVITAMINS, THERA 1 EACH TAB PO SCH (07:19)
[2020-10-07] MEDS: CYANOCOBALAMIN 500 MCG TAB PO SCH (07:19)
[2020-10-07] MEDS ORDERED: KETOROLAC 15 MG/ML 1 ML VIAL IVP PRN (09:15)
--- NOTE | 2020-10-07 11:26 | P.PN ---
Subjective Progress Note Date: 10/07/20 Principal diagnosis: Cytopenia, ETOH CBC is improved, ANC increased 0.9, platelet count 77K Objective - Vital Signs Vital signs: Vital Signs Temp 98.6 F 10/07/20 07:54 Pulse 62 10/07/20 07:54 Resp 16 10/07/20 07:54 BP 103/62 10/07/20 07:54 Pulse Ox 97 10/07/20 07:54 Intake & Output 10/06/20 10/07/20 10/07/20 18:59 06:59 18:59 Intake Total 1200 Balance 1200 Intake: Oral 1200 Other: Voiding Method Toilet Toilet Toilet - Exam - Constitutional General appearance: cooperative, no acute distress - EENT Eyes: EOMI ENT: NA/AT - Neck Neck: normal ROM - Respiratory Respiratory: bilateral: CTA - Cardiovascular Rhythm: regular - Gastrointestinal General gastrointestinal: tenderness - Integumentary Integumentary: pale - Neurologic Neurologic: CNII-XII intact - Musculoskeletal Musculoskeletal: generalized weakness, strength equal bilaterally - Psychiatric Lethargic Psychiatric: A&O x's 3 - Labs CBC & Chem 7: 10/07/20 11:26 10/07/20 11:26 Labs: Abnormal Lab Results - Last 24 Hours (Table) 10/05/20 Range/Units 20:54 Iron 57 L (65-175) ug/dL Lactate Dehydrogenase 296 H (120-246) U/L Vitamin D 25-Hydroxy 29.1 L (30.0-100.0) ng/mL Assessment and Plan (1) Leukopenia Current Visit: Yes Status: Acute Code(s): D72.819 - DECREASED WHITE BLOOD CELL COUNT, UNSPECIFIED SNOMED Code(s): 07401822 (2) Thrombocytopenia Current Visit: Yes Status: Acute Code(s): D69.6 - THROMBOCYTOPENIA, UNSPECIFIED SNOMED Code(s): 477514105 (3) Abdominal pain Current Visit: Yes Status: Acute Code(s): R10.9 - UNSPECIFIED ABDOMINAL PAIN SNOMED Code(s): 82379130 (4) Alcohol intoxication Current Visit: Yes Status: Acute Priority: High Code(s): F10.929 - ALCOHOL USE, UNSPECIFIED WITH INTOXICATION, UNSPECIFIED SNOMED Code(s): 40008893 (5) Acute alcohol intoxication Current Visit: No Status: Acute Code(s): F10.929 - ALCOHOL USE, UNSPECIFIED WITH INTOXICATION, UNSPECIFIED SNOMED Code(s): 43403104 (6) Acute diarrhea Current Visit: No Status: Acute Code(s): R19.7 - DIARRHEA, UNSPECIFIED SNOMED Code(s): 798459788 (7) Alcohol withdrawal Current Visit: No Status: Acute Code(s): F10.239 - ALCOHOL DEPENDENCE WITH WITHDRAWAL, UNSPECIFIED SNOMED Code(s): 822270681 Plan: CYtopenias: Throbocytopenias: - Secondary to Chronic Alcohol Abuse and bone marrow depression, compoent chronic liver disease - Ok to continue on Prophylaxis ac therapy if greater than 50K and no s/s bleeding History of Chronic DVT: - Could not find the evidence of this and patient was not choosing to answer as he was quite lethargic - Repeat doppler performed - WIll discuss further with primary team, however if ongoing AC therapy is needed regarding DVTs, platelet count is to be greater than 50K Leukopenia: - Secondary to ETOH and Bone Marrow suppression PLan: - CBC Daily - If ANC decreased less than 0.6 will initiate GCSF - No AC if platelets less than 50K, improved and 77K today - LFTs increased - MOnitor
[2020-10-07 11:55] LABS: ALT 100 U/L (4-49); AST 196 U/L (17-59); African American GFR (CKD) >90 (>60 ml/min/1.73 sqM); Albumin 4.3 g/dL (3.5-5.0); Albumin/Globulin Ratio 1.3; Alkaline Phosphatase 60 U/L (38-126); Anion Gap 8 mmol/L; Blood Urea Nitrogen 14 mg/dL (9-20); Calcium 9.4 mg/dL (8.4-10.2); Carbon Dioxide 31 mmol/L (22-30); Chloride 98 mmol/L (98-107); Globulin 3.2 g/dL; Glucose 111 mg/dL (74-99); Non-African American GFR(CKD) >90 (>60 ml/min/1.73 sqM); Potassium 4.1 mmol/L (3.5-5.1); Sodium 137 mmol/L (137-145); Total Bilirubin 0.8 mg/dL (0.2-1.3); Total Protein 7.5 g/dL (6.3-8.2)
[2020-10-07 12:10] LABS: Prothrombin Time 10.9 sec (9.0-12.0)
[2020-10-07 12:16] LABS: Basophils % (A) 1 %; Eosinophils # (A) 0.1 k/uL (0-0.7); Eosinophils % (A) 4 %; HCT 43.4 % (39.0-53.0); HGB 14.1 gm/dL (13.0-17.5); Lymphocytes # (A) 1.3 k/uL (1.0-4.8); Lymphocytes % (A) 46 %; MCH 29.8 pg (25.0-35.0); MCHC 32.4 g/dL (31.0-37.0); MCV 92.1 fL (80.0-100.0); Mean Platelet Volume 10.4; Monocytes # (A) 0.3 k/uL (0-1.0); Monocytes % (A) 11 %; Neutrophils # (A) 0.9 k/uL (1.3-7.7); Neutrophils % (A) 34 %; RBC 4.71 m/uL (4.30-5.90); RDW 15.4 % (11.5-15.5); WBC 2.8 k/uL (3.8-10.6)
[2020-10-07 12:18] LABS: Platelet Count 77 k/uL (150-450)
--- NOTE | 2020-10-07 20:59 | P.PN ---
Subjective This is a pleasant 40 years old male with past medical history of COPD, GERD, seizure disorder, bipolar and depression, nicotine dependence and alcohol abuse. He is also on Suboxone. He was recently discharged from the hospital earlier this month for alcohol abuse as well and. When I want to see the patient he was sleeping [place] up and then he did not want to be disturbed. Information were taken from the staff and records. pt attempted to enter [facility] today but declined admission due to alcohol intoxication and abuse. Last time he was alcohol as this morning. Patient suspected to have a fall by ED staff, emergency room bedside nurse talk to the patient he did not stated that he fell but there is a small wound in his left cheek but it looks superficial and dry and lie near. Also pt admits to ED staff to suicidal thoughts with plans to jump in [place] looks stable. Labs including CBC, BMP is unremarkable. Magnesium 1.5, AST slightly elevated and dressed or enzymes are unremarkable 0.7. Alcohol level is elevated 435 CT of the brain: No acute hemorrhage or midline shift Chest x-ray, no acute process In the emergency room patient received 1 L of normal saline boluses, replace magnesium and thiamine. Also patient was started on CIWA protocol 10/05/2020 Patient is awake and alert this morning, a little bit weak. However he was complaining of from right sided abdominal pain and tenderness and vomited wide stuff in the morning. CT of the abdomen and pelvis with oral contrast only showing inflammation of the terminal ileum suspicious for partial obstruction versus inflammation like Crohn's disease versus infection. Surgery team consult obtained and they recommended conservative management and outpatient colonoscopy. Sitter at bedside was discontinued by psychiatrist after evaluated him today, no source of the risk and he was cleared for discharge by psychiatrist Labs showing pancytopenia. BMP is stable, magnesium of the low side Check regular labs, vitamin B-12, ESR/C-reactive protein. Pro-calcitonin 10/06/2020 Patient is awake and alert today, lethargic, interactive and follows commands clearly. He still have significant shakiness and his CIWA score ranging between 10 and 27. He going to give him 1 time dose of volume on the top of his Librium and CIWA protocol. No more vomiting and he is unable to eat because of abdominal pain. We going to change his IV fluids to D5 normal saline. His blood pressure is better today 122/65, he is slightly bradycardic but asymptomatic. His labs showing evidence of alcoholic myelosuppression with WBC 2.0, hemoglobin is better at 11.9 and platelets dropping down to 51 secondary probably to alcohol effect. Ammonia level is negative at 27. Pro-calcitonin is mildly elevated at 0.1. ESR is normal C-reactive protein and BMP and magnesium are pending In the meantime patient remains on Librium 25 mg 3 times a day standing dose plus CIWA protocol. D5 normal saline at 75 mL/h, also is on BuSpar, trazodone, Cymbalta admitted by psychiatrist surgery team recommended no surgical intervention and outpatient follow-up for colonoscopy, patient informed. Risks include explained to him including but not limited to the risk of cancer and he verbalized understanding and acceptance GI team to evaluate the patient 10/06/2020 Patient is still sleeping most of the time, he still complaining from shakiness of the upper extremities is CIWA score is 5 to 10, he is currently on CIWA protocol and Librium scheduled dose. We going to change his Ativan IV and oral doses as patient noticed exaggerating some of his symptoms. And will keep mon itoring her closely. Also to decrease drowsiness outpatient. He is still with pancytopenia although hemoglobin improved today to 13 his WBCs 2.1K and low platelets are 50 5K. Clinical Rn Manager team were consulted B-12 is borderline around 398 so or replacement therapy is initiated. GI and surgery services both of them recommended outpatient colonoscopy, patient informed and he agrees Hematology service for low hemoglobin and platelets. Doppler of the lower extremity is negative for DVT 10/07/2020 Patient sitting slightly improving and gradually better than yesterday although his total lethargic however his needed less morphine, and we did not get much of Ativan today. However he remains on Librium 25 mg twice a day per psychiatrist team. His pancytopenia is slightly improving, WBC 2.1, went up to 2.8, hemoglobin normal at 14, platelets went up to 55-70 7K. Blood pressure is low normal but that's chronic and since last year when checked from his records. Doppler is negative for DVT. He is on prophylactic dose of anticoagulation which would be discontinuing upon discharge as there is no indication for anticoagulation as an outpatient per pre k special education teacher team. Patient also got risk of bleeding especially platelet count dropped below 50 and because of risk of alcohol abuse and its c omplications Physical therapy evaluated the patient and they recommended home however patient most likely is going to [facility] upon discharge. Psychiatric the case and adjusted his medication, currently he is on BuSpar and melatonin while trazodone was discontinued. He is also on Cymbalta. GI and surgery team both evaluated the patient for intestinal thickening and they recommended outpatient colonoscopy. I went today and explained to the patient in details and extensively his intestinal problem and the need for colonoscopy as an outpatient, one possibility is to rule out cancer. Patient sedated back to me, Patient was awake and oriented then and he verbalized understanding and acceptance to follow up with GI and surgery team Monitor electrolytes and replace them. Patient remains on a Protonix by mouth twice daily. GI team Monitor LFTs Objective - Vital Signs Vital signs: Vital Signs Temp 99.2 F 10/07/20 14:00 Pulse 83 10/07/20 14:00 Resp 16 10/07/20 14:00 BP 97/67 10/07/20 14:00 Pulse Ox 97 10/07/20 14:00 Intake & Output 10/06/20 10/07/20 10/07/20 18:59 06:59 18:59 Intake Total 1200 Balance 1200 Intake: Oral 1200 Other: Voiding Method Toilet Toilet Toilet - Exam GENERAL: The patient is alert and oriented x3, not in any acute distress. Well developed, well nourished. HEENT: Pupils are round and equally reacting to light. EOMI. No scleral icterus. No conjunctival pallor. Normocephalic, atraumatic. No pharyngeal erythema. No thyromegaly. CARDIOVASCULAR: S1 and S2 present. No murmurs, rubs, or gallops. PULMONARY: Chest is clear to auscultation, no wheezing or crackles. -ABDOMEN: Soft, right-sided abdominal tenderness , nondistended, normoactive bowel sounds. No palpable organomegaly. MUSCULOSKELETAL: No joint swelling or deformity. EXTREMITIES: No cyanosis, clubbing, or pedal edema. NEUROLOGICAL: Gross neurological examination did not reveal any focal deficits. SKIN: No rashes. no petechiae. - Labs CBC & Chem 7: 10/07/20 11:26 10/07/20 11:26 Labs: Abnormal Lab Results - Last 24 Hours (Table) 10/07/20 10/07/20 Range/Units 11:26 11:26 WBC 2.8 L (3.8-10.6) k/uL Plt Count 77 L D (150-450) k/uL Neutrophils # 0.9 L (1.3-7.7) k/uL Carbon Dioxide 31 H (22-30) mmol/L Glucose 111 H (74-99) mg/dL AST 196 H (17-59) U/L ALT 100 H (4-49) U/L Assessment and Plan Assessment: Thickening and possible inflammation of the terminal ileum, possible Crohn's versus infectious versus others Alcohol abuse alcohol withdrawal Toxic encephalopathy secondary to above. Improved completely Possible fall with negative CT of the brain not active tissue depression and bipolar associated with suicidal ideation. Evaluated by psychiatrist and cleared him for discharge from their mental health perspective. No more suicidal thoughts History of seizure disorder, not on AED History of GERD Nicotine dependence COPD, no acute exacerbation History of pure W was on Suboxone Plan: This is a pleasant 40 years old male who presents with alcohol abuse and possible fall. Continue with CIWA protocol and thiamin and vitamins. Also Librium GI team was consulted. Surgery consult. Patient is cleared for discharge by psychiatrist. GI and surgery team recommended no surgical intervention and outpatient follow- up for colonoscopy Return to [facility] upon discharge ash worker of the case Labs and medication were reviewed.. Continue same treatment. Continue with symptomatic treatment. Resume home medication. Monitor lytes and vitals. DVT and GI prophylaxis. Further recommendations as per clinical course of the patient DVT prophylaxis: Subcutaneous heparin GI Prophylaxis: Pepcid PT/OT: Pending Prognosis is guarded
[2020-10-07] MEDS ORDERED: ERGOCALCIFEROL 1,250 MCG (50,000 IU) CAPSULE PO SCH (21:00)
[2020-10-07] MEDS ORDERED: CALCIUM CARBONATE 500 MG CHEWABLE PO PRN (21:59)
[2020-10-07 22:19] LABS: ALT 89 U/L (4-49); AST 145 U/L (17-59); African American GFR (CKD) >90 (>60 ml/min/1.73 sqM); Albumin 4.1 g/dL (3.5-5.0); Albumin/Globulin Ratio 1.4; Alkaline Phosphatase 59 U/L (38-126); Anion Gap 8 mmol/L; Bilirubin,Unconjugated 0.7 mg/dL (0.0-1.1); Blood Urea Nitrogen 18 mg/dL (9-20); Calcium 9.2 mg/dL (8.4-10.2); Carbon Dioxide 26 mmol/L (22-30); Chloride 99 mmol/L (98-107); Glucose 113 mg/dL (74-99); Non-African American GFR(CKD) >90 (>60 ml/min/1.73 sqM); Potassium 3.7 mmol/L (3.5-5.1); Sodium 133 mmol/L (137-145); Total Bilirubin 0.7 mg/dL (0.2-1.3); Total Protein 7.1 g/dL (6.3-8.2)
[2020-10-07] MEDS ORDERED: POTASSIUM CHLORIDE ER 20 MEQ TAB.ER PO STA (23:30)
[2020-10-07] MEDS: MELATONIN 5 MG TABLET PO SCH (23:31)
[2020-10-07] MEDS: traZODone HCL 100 MG TAB PO SCH (23:31)
[2020-10-07] MEDS: MAGNESIUM SULFATE-D5W PMX 1 GM in DEXTROSE/WATER 1 100ML.BAG IVPB SCH (23:32)
[2020-10-08] MEDS: MAGNESIUM SULFATE-D5W PMX 1 GM in DEXTROSE/WATER 1 100ML.BAG IVPB SCH ×4 (01:39→12:06)
[2020-10-08] MEDS ORDERED: SODIUM CHLORIDE 0.9% 1,000 ML IV SCH (08:00)
[2020-10-08] MEDS: HYDROcodone/APAP 5-325MG 1 EACH TAB PO PRN ×2 (08:26→21:03)
[2020-10-08] MEDS: THIAMINE 100 MG TAB PO SCH ×2 (08:27→15:47)
[2020-10-08] MEDS: PANTOPRAZOLE 40 MG TABLET PO SCH ×2 (08:27→15:47)
[2020-10-08] MEDS: chlordiazePOXIDE 25 MG CAP PO SCH ×2 (08:27→20:51)
[2020-10-08] MEDS: CYANOCOBALAMIN 500 MCG TAB PO SCH (08:27)
[2020-10-08] MEDS: MULTIVITAMINS, THERA 1 EACH TAB PO SCH (08:27)
[2020-10-08] MEDS: FOLIC ACID 1 MG TAB PO SCH (08:27)
[2020-10-08] MEDS: busPIRone HCl 5 MG TAB PO SCH ×2 (08:27→20:51)
[2020-10-08] MEDS: DULoxetine HCL 60 MG CAPSULE.DR PO SCH (08:27)
[2020-10-08] MEDS: ONDANSETRON 4 MG/2 ML VIAL IVP PRN (08:28)
[2020-10-08] MEDS: guaiFENesin-DM 100-10MG/5ML 10 ML CUP PO SCH ×3 (08:28→23:39)
[2020-10-08] MEDS: LORazepam 2 MG/ML INJ IV PRN ×2 (08:37→16:03)
--- NOTE | 2020-10-08 09:16 | US ---
EXAMINATION TYPE: US venous doppler duplex LE DATE OF EXAM: 10/08/2020 9:11 AM COMPARISON: Prior ultrasound 3 days ago CLINICAL HISTORY: Rule out DVT. Bilateral leg swelling. SIDE PERFORMED: Bilateral TECHNIQUE: The lower extremity deep venous system is examined utilizing real time linear array sonog horace with graded compression, doppler sonography and color-flow sonography. VESSELS IMAGED: Common Femoral Vein Deep Femoral Vein Greater Saphenous Vein * Femoral Vein Popliteal Vein Small Saphenous Vein * Proximal Calf Veins (* superficial vessels) Right Leg: Negative for DVT Left Leg: Negative for DVT Grayscale, color doppler, spectral doppler imaging performed of the deep veins of the bilateral lower extremities. There is normal flow, compressibility, vascular waveforms. IMPRESSION: No ultrasound evidence for acute DVT in either lower extremity. No significant change fr om study 3 days earlier.
[2020-10-08] MEDS: IPRATROPIUM-ALBUTEROL 3 ML NEB INHALATION PRN (12:01)
[2020-10-08 12:08] LABS: ALT 95 U/L (4-49); AST 136 U/L (17-59); African American GFR (CKD) >90 (>60 ml/min/1.73 sqM); Albumin 4.1 g/dL (3.5-5.0); Albumin/Globulin Ratio 1.2; Alkaline Phosphatase 58 U/L (38-126); Anion Gap 7 mmol/L; Basophils % (A) 1 %; Blood Urea Nitrogen 13 mg/dL (9-20); Calcium 9.2 mg/dL (8.4-10.2); Carbon Dioxide 28 mmol/L (22-30); Chloride 103 mmol/L (98-107); Eosinophils # (A) 0.1 k/uL (0-0.7); Eosinophils % (A) 2 %; Globulin 3.3 g/dL; Glucose 107 mg/dL (74-99); HCT 41.1 % (39.0-53.0); HGB 13.7 gm/dL (13.0-17.5); Lymphocytes # (A) 1.3 k/uL (1.0-4.8); Lymphocytes % (A) 39 %; MCH 30.7 pg (25.0-35.0); MCHC 33.3 g/dL (31.0-37.0); MCV 92.3 fL (80.0-100.0); Mean Platelet Volume 10.7; Monocytes # (A) 0.3 k/uL (0-1.0); Monocytes % (A) 9 %; Neutrophils # (A) 1.5 k/uL (1.3-7.7); Neutrophils % (A) 45 %; Non-African American GFR(CKD) >90 (>60 ml/min/1.73 sqM); RBC 4.45 m/uL (4.30-5.90); RDW 15.1 % (11.5-15.5); Sodium 138 mmol/L (137-145); Total Bilirubin 0.7 mg/dL (0.2-1.3); Total Protein 7.4 g/dL (6.3-8.2); WBC 3.3 k/uL (3.8-10.6)
[2020-10-08 12:13] LABS: Platelet Count 98 k/uL (150-450)
--- NOTE | 2020-10-08 13:18 | CT ---
All EXAMINATION TYPE: CT chest angio for PE DATE OF EXAM: 10/08/2020 COMPARISON: None HISTORY: Shortness of breath. CT DLP: 219.4 mGycm CONTRAST: CT chest with contrast and 3D reconstruction with MIP imaging is performed with IV Contrast, patient injected with 100 mL of Isovue 370. Contrast-enhanced CT of the chest was performed through the course of the pulmonary arteries with nicole g and mediastinal window settings submitted. 3D reconstruction with MIP imaging was also performed. PULMONARY ARTERIES: The pulmonary arteries and their major tributaries are patent. I do not see arlene dence for sizable filling defect to suggest pulmonary embolic process. LUNGS: The lungs are clear and free of infiltrate. No evidence for atelectasis. No pulmonary nodule or mass is detected. No pleural effusion. MEDIASTINUM: Thoracic aorta is of normal caliber,however, evaluation is limited given timing of the contrast bolus. If there is concern for thoracic aortic pathology consider TEETEE. Correlate clinicall y . The heart is not enlarged. No evidence for mediastinal mass. No mediastinal lymph nodes greater than 1cm. HILAR STRUCTURES: No evidence for mass. No hilar lymph nodes greater than 1 cm. UPPER ABDOMEN: No significant abnormality is seen. IMPRESSION: 1. No evidence for Pulmonary embolism at this time.
[2020-10-08 14:05] VITALS: BMI 20.9
--- NOTE | 2020-10-08 15:46 | P.PN ---
Subjective Progress Note Date: 10/08/20 Principal diagnosis: Cytopenia, ETOH CBC continues to improve and remains in safe range Objective - Vital Signs Vital signs: Vital Signs Temp 98.1 F 10/08/20 07:13 Pulse 74 10/08/20 07:13 Resp 17 10/08/20 07:13 BP 96/66 10/08/20 07:13 Pulse Ox 97 10/08/20 07:13 Intake & Output 10/07/20 10/08/20 10/08/20 18:59 06:59 18:59 Other: Voiding Method Toilet Toilet # Voids 3 3 - Exam - Constitutional General appearance: cooperative, no acute distress - EENT Eyes: EOMI ENT: NA/AT - Neck Neck: normal ROM - Respiratory Respiratory: bilateral: CTA - Cardiovascular Rhythm: regular - Gastrointestinal General gastrointestinal: tenderness - Integumentary Integumentary: pale - Neurologic Neurologic: CNII-XII intact - Musculoskeletal Musculoskeletal: generalized weakness, strength equal bilaterally - Psychiatric Lethargic Psychiatric: A&O x's 3 - Labs CBC & Chem 7: 10/08/20 05:42 10/08/20 05:42 Labs: Abnormal Lab Results - Last 24 Hours (Table) 10/07/20 10/07/20 10/07/20 Range/Units 11:26 11:26 21:57 WBC 2.8 L (3.8-10.6) k/uL Plt Count 77 L D (150-450) k/uL Neutrophils # 0.9 L (1.3-7.7) k/uL Sodium 133 L (137-145) mmol/L Carbon Dioxide 31 H (22-30) mmol/L Creatinine 0.58 L (0.66-1.25) mg/dL Glucose 111 H 113 H (74-99) mg/dL Magnesium 1.0 L (1.6-2.3) mg/dL AST 196 H 145 H (17-59) U/L ALT 100 H 89 H (4-49) U/L 10/08/20 Range/Units 05:42 WBC (3.8-10.6) k/uL Plt Count (150-450) k/uL Neutrophils # (1.3-7.7) k/uL Sodium (137-145) mmol/L Carbon Dioxide (22-30) mmol/L Creatinine (0.66-1.25) mg/dL Glucose (74-99) mg/dL Magnesium 1.5 L (1.6-2.3) mg/dL AST (17-59) U/L ALT (4-49) U/L Assessment and Plan (1) Leukopenia Current Visit: Yes Status: Acute Code(s): D72.819 - DECREASED WHITE BLOOD CELL COUNT, UNSPECIFIED SNOMED Code(s): 88820973 (2) Thrombocytopenia Current Visit: Yes Status: Acute Code(s): D69.6 - THROMBOCYTOPENIA, UNSPECIFIED SNOMED Code(s): 989488643 (3) Abdominal pain Current Visit: Yes Status: Acute Code(s): R10.9 - UNSPECIFIED ABDOMINAL PAIN SNOMED Code(s): 47597442 (4) Alcohol intoxication Current Visit: Yes Status: Acute Priority: High Code(s): F10.929 - ALCOHOL USE, UNSPECIFIED WITH INTOXICATION, UNSPECIFIED SNOMED Code(s): 70489207 (5) Acute alcohol intoxication Current Visit: No Status: Acute Code(s): F10.929 - ALCOHOL USE, UNSPECIFIED WITH INTOXICATION, UNSPECIFIED SNOMED Code(s): 22480903 (6) Acute diarrhea Current Visit: No Status: Acute Code(s): R19.7 - DIARRHEA, UNSPECIFIED SNOMED Code(s): 339160249 (7) Alcohol withdrawal Current Visit: No Status: Acute Code(s): F10.239 - ALCOHOL DEPENDENCE WITH WITHDRAWAL, UNSPECIFIED SNOMED Code(s): 671751970 Plan: CYtopenias: Throbocytopenias: - Secondary to Chronic Alcohol Abuse and bone marrow depression, compoent chronic liver disease - Ok to continue on Prophylaxis ac therapy if greater than 50K and no s/s bleeding History of Chronic DVT: - Could not find the evidence of this and patient was not choosing to answer as he was quite lethargic - Repeat doppler performed - WIll discuss further with primary team, however if ongoing AC therapy is needed regarding DVTs, platelet count is to be greater than 50K Leukopenia: - Secondary to ETOH and Bone Marrow suppression PLan: - cbc continues to improve - Continue daily cbc monitoring Physician Attest: I have completed the full history and physical and developed the above impression and plan, agree with dictation, dictated as a scribe
[2020-10-08] MEDS: MELATONIN 5 MG TABLET PO SCH (20:51)
[2020-10-08] MEDS: traZODone HCL 100 MG TAB PO SCH (20:51)
[2020-10-09] MEDS: HYDROcodone/APAP 5-325MG 1 EACH TAB PO PRN ×3 (03:51→21:00)
[2020-10-09] MEDS: MULTIVITAMINS, THERA 1 EACH TAB PO SCH (09:04)
[2020-10-09] MEDS: PANTOPRAZOLE 40 MG TABLET PO SCH ×2 (09:05→16:52)
[2020-10-09] MEDS: DULoxetine HCL 60 MG CAPSULE.DR PO SCH (09:05)
[2020-10-09] MEDS: CYANOCOBALAMIN 500 MCG TAB PO SCH (09:05)
[2020-10-09] MEDS: busPIRone HCl 5 MG TAB PO SCH ×2 (09:05→21:01)
[2020-10-09] MEDS: THIAMINE 100 MG TAB PO SCH ×2 (09:05→16:52)
[2020-10-09] MEDS: FOLIC ACID 1 MG TAB PO SCH (09:05)
[2020-10-09] MEDS: guaiFENesin-DM 100-10MG/5ML 10 ML CUP PO SCH ×3 (09:11→22:45)
[2020-10-09 09:12] LABS: Basophils # (A) 0.03 X 10*3/uL (0.00-0.10); Basophils % (A) 0.9 %; Eosinophils % (A) 2.9 %; HCT 35.7 % (39.6-50.0); HGB 11.8 g/dL (13.0-17.0); Lymphocytes # (A) 1.54 X 10*3/uL (0.90-5.00); MCH 30.6 pg (27.0-32.0); MCHC 33.1 g/dL (32.0-37.0); MCV 92.5 fL (80.0-97.0); Mean Platelet Volume 11.2 fL (9.5-12.2); Monocytes # (A) 0.66 X 10*3/uL (0.20-1.00); Monocytes % (A) 19.3 %; Neutrophils # (A) 1.08 X 10*3/uL (1.80-7.70); Neutrophils % (A) 31.6 %; Platelet Count 106 X 10*3/uL (140-440); RBC 3.86 X 10*6/uL (4.40-5.60); RDW 14.9 % (11.5-14.5); WBC 3.42 X 10*3/uL (4.50-10.00)
--- NOTE | 2020-10-09 09:22 | P.PN ---
Subjective This is a pleasant 40 years old male with past medical history of COPD, GERD, seizure disorder, bipolar and depression, nicotine dependence and alcohol abuse. He is also on Suboxone. He was recently discharged from the hospital earlier this month for alcohol abuse as well and. When I want to see the patient he was sleeping [place] up and then he did not want to be disturbed. Information were taken from the staff and records. pt attempted to enter [facility] today but declined admission due to alcohol intoxication and abuse. Last time he was alcohol as this morning. Patient suspected to have a fall by ED staff, emergency room bedside nurse talk to the patient he did not stated that he fell but there is a small wound in his left cheek but it looks superficial and dry and lie near. Also pt admits to ED staff to suicidal thoughts with plans to jump in [place] looks stable. Labs including CBC, BMP is unremarkable. Magnesium 1.5, AST slightly elevated and dressed or enzymes are unremarkable 0.7. Alcohol level is elevated 435 CT of the brain: No acute hemorrhage or midline shift Chest x-ray, no acute process In the emergency room patient received 1 L of normal saline boluses, replace magnesium and thiamine. Also patient was started on CIWA protocol 10/05/2020 Patient is awake and alert this morning, a little bit weak. However he was complaining of from right sided abdominal pain and tenderness and vomited wide stuff in the morning. CT of the abdomen and pelvis with oral contrast only showing inflammation of the terminal ileum suspicious for partial obstruction versus inflammation like Crohn's disease versus infection. Surgery team consult obtained and they recommended conservative management and outpatient colonoscopy. Sitter at bedside was discontinued by psychiatrist after evaluated him today, no source of the risk and he was cleared for discharge by psychiatrist Labs showing pancytopenia. BMP is stable, magnesium of the low side Check regular labs, vitamin B-12, ESR/C-reactive protein. Pro-calcitonin 10/06/2020 Patient is awake and alert today, lethargic, interactive and follows commands clearly. He still have significant shakiness and his CIWA score ranging between 10 and 27. He going to give him 1 time dose of volume on the top of his Librium and CIWA protocol. No more vomiting and he is unable to eat because of abdominal pain. We going to change his IV fluids to D5 normal saline. His blood pressure is better today 122/65, he is slightly bradycardic but asymptomatic. His labs showing evidence of alcoholic myelosuppression with WBC 2.0, hemoglobin is better at 11.9 and platelets dropping down to 51 secondary probably to alcohol effect. Ammonia level is negative at 27. Pro-calcitonin is mildly elevated at 0.1. ESR is normal C-reactive protein and BMP and magnesium are pending In the meantime patient remains on Librium 25 mg 3 times a day standing dose plus CIWA protocol. D5 normal saline at 75 mL/h, also is on BuSpar, trazodone, Cymbalta admitted by psychiatrist surgery team recommended no surgical intervention and outpatient follow-up for colonoscopy, patient informed. Risks include explained to him including but not limited to the risk of cancer and he verbalized understanding and acceptance GI team to evaluate the patient 10/06/2020 Patient is still sleeping most of the time, he still complaining from shakiness of the upper extremities is CIWA score is 5 to 10, he is currently on CIWA protocol and Librium scheduled dose. We going to change his Ativan IV and oral doses as patient noticed exaggerating some of his symptoms. And will keep mon itoring her closely. Also to decrease drowsiness outpatient. He is still with pancytopenia although hemoglobin improved today to 13 his WBCs 2.1K and low platelets are 50 5K. Mining [employer] team were consulted B-12 is borderline around 398 so or replacement therapy is initiated. GI and surgery services both of them recommended outpatient colonoscopy, patient informed and he agrees Hematology service for low hemoglobin and platelets. Doppler of the lower extremity is negative for DVT 10/07/2020 Patient sitting slightly improving and gradually better than yesterday although his total lethargic however his needed less morphine, and we did not get much of Ativan today. However he remains on Librium 25 mg twice a day per psychiatrist team. His pancytopenia is slightly improving, WBC 2.1, went up to 2.8, hemoglobin normal at 14, platelets went up to 55-70 7K. Blood pressure is low normal but that's chronic and since last year when checked from his records. Doppler is negative for DVT. He is on prophylactic dose of anticoagulation which would be discontinuing upon discharge as there is no indication for anticoagulation as an outpatient per svp operations team. Patient also got risk of bleeding especially platelet count dropped below 50 and because of risk of alcohol abuse and its c omplications Physical therapy evaluated the patient and they recommended home however patient most likely is going to [facility] upon discharge. Psychiatric the case and adjusted his medication, currently he is on BuSpar and melatonin while trazodone was discontinued. He is also on Cymbalta. GI and surgery team both evaluated the patient for intestinal thickening and they recommended outpatient colonoscopy. I went today and explained to the patient in details and extensively his intestinal problem and the need for colonoscopy as an outpatient, one possibility is to rule out cancer. Patient sedated back to me, Patient was awake and oriented then and he verbalized understanding and acceptance to follow up with GI and surgery team Monitor electrolytes and replace them. Patient remains on a Protonix by mouth twice daily. GI team Monitor LFTs 10/08/2020 Today patient still feels weak although he could sit up. It was more interactive, is still eating very little. This complaining of from abdominal pain. Also was complaining of from chest pain and dyspnea which started today and in view of d-dimer I explained the risks and benefits of doing CT of the chest with IV contrast including but not limited to the risk of nephrotoxicity. He agreed. CTA of the chest was negative for PE. Doppler of the legs also negative for DVT. Because of difficulty with eating and nausea , antiemetic is provided and his diet switch to liquid/soft. Change pain medication to [place] 5 as Toradol was discontinued is not working and increased risk of side effects Continue with gentle hydration for 12 hours Physical therapy evaluation patient is planned to go to [facility] upon discharge Patient will need colonoscopy as an outpatient upon discharge for orthopedic intestinal wall, is informed and agrees Objective - Vital Signs Vital signs: Vital Signs Temp 98.1 F 10/08/20 07:13 Pulse 74 10/08/20 12:12 Resp 17 10/08/20 07:13 BP 96/66 10/08/20 07:13 Pulse Ox 97 10/08/20 07:13 Intake & Output 10/07/20 10/08/20 10/08/20 18:59 06:59 18:59 Weight 68.039 kg Other: Voiding Method Toilet Toilet # Voids 3 3 - Exam GENERAL: The patient is alert and oriented x3, not in any acute distress. Well developed, well nourished. HEENT: Pupils are round and equally reacting to light. EOMI. No scleral icterus. No conjunctival pallor. Normocephalic, atraumatic. No pharyngeal erythema. No thyromegaly. CARDIOVASCULAR: S1 and S2 present. No murmurs, rubs, or gallops. PULMONARY: Chest is clear to auscultation, no wheezing or crackles. -ABDOMEN: Soft, right-sided abdominal tenderness , nondistended, normoactive bowel sounds. No palpable organomegaly. MUSCULOSKELETAL: No joint swelling or deformity. EXTREMITIES: No cyanosis, clubbing, or pedal edema. NEUROLOGICAL: Gross neurological examination did not reveal any focal deficits. SKIN: No rashes. no petechiae. - Labs CBC & Chem 7: 10/09/20 06:10 10/08/20 05:42 Labs: Abnormal Lab Results - Last 24 Hours (Table) 10/07/20 10/08/20 10/08/20 Range/Units 21:57 05:42 05:42 WBC (3.8-10.6) k/uL Plt Count (150-450) k/uL Sodium 133 L (137-145) mmol/L Creatinine 0.58 L (0.66-1.25) mg/dL Glucose 113 H 107 H (74-99) mg/dL Magnesium 1.0 L 1.5 L (1.6-2.3) mg/dL AST 145 H 136 H (17-59) U/L ALT 89 H 95 H (4-49) U/L 10/08/20 Range/Units 05:42 WBC 3.3 L (3.8-10.6) k/uL Plt Count 98 L (150-450) k/uL Sodium (137-145) mmol/L Creatinine (0.66-1.25) mg/dL Glucose (74-99) mg/dL Magnesium (1.6-2.3) mg/dL AST (17-59) U/L ALT (4-49) U/L Assessment and Plan Assessment: Thickening and possible inflammation of the terminal ileum, possible Crohn's versus infectious versus others others Alcohol abuse alcohol withdrawal Toxic encephalopathy secondary to above. Improved completely Possible fall with negative CT of the brain not active tissue depression and bipolar associated with suicidal ideation. Evaluated by psychiatrist and cleared him for discharge from their mental health perspective. No more suicidal thoughts History of seizure disorder, not on AED elevated d-dimer with negative CTPA for PE an negative DVT History of GERD Nicotine dependence COPD, no acute exacerbation History of pure W was on Suboxone Plan: This is a pleasant 40 years old male who presents with alcohol abuse and possible fall. Continue with CIWA protocol and thiamin and vitamins. Also Librium GI team was consulted. Surgery consult. Patient is cleared for discharge by psychiatrist. GI and surgery team recommended no surgical intervention and outpatient follow- up for colonoscopy Return to [facility] upon discharge drying can worker of the case Labs and medication were reviewed.. Continue same treatment. Continue with symptomatic treatment. Resume home medication. Monitor lytes and vitals. DVT and GI prophylaxis. Further recommendations as per clinical course of the patient DVT prophylaxis: Subcutaneous heparin GI Prophylaxis: Pepcid PT/OT: Pending Prognosis is guarded
[2020-10-09] MEDS: chlordiazePOXIDE 25 MG CAP PO SCH ×2 (09:23→21:01)
[2020-10-09 10:22] LABS: African American GFR (CKD) 143.7 (60.0-200.0); Albumin/Globulin Ratio 1.48 (1.60-3.17); Anion Gap 9.2 mmol/L (4.00-12.00); BUN/Creat Ratio 21.67 Ratio (12.00-20.00); Calcium 8.9 mg/dL (8.7-10.3); Carbon Dioxide 22.8 mmol/L (21.6-31.8); Globulin 2.7 g/dL (1.6-3.3); Potassium 4.1 mmol/L (3.5-5.5); Total Bilirubin 0.4 mg/dL (0.3-1.2); Total Protein 6.7 g/dL (6.2-8.2)
[2020-10-09] MEDS ORDERED: MAGNESIUM SULFATE-D5W PMX 1 GM in DEXTROSE/WATER 1 100ML.BAG IVPB ONE (10:59)
[2020-10-09] MEDS ORDERED: clonazePAM 0.5 MG TAB PO PRN (18:43)
[2020-10-09] MEDS ORDERED: IBUPROFEN 600 MG TAB PO PRN (18:43)
[2020-10-09] MEDS ORDERED: ACETAMINOPHEN TAB 325 MG TAB PO PRN (18:43)
[2020-10-09] MEDS ORDERED: LORATADINE 10 MG TAB PO PRN (18:43)
[2020-10-09] MEDS ORDERED: Potassium Replacement Protocol 1 EACH MISC MISCELLANE PRN (18:43)
[2020-10-09] MEDS ORDERED: Magnesium Replacement Protocol 1 EACH MISC MISCELLANE PRN (18:43)
[2020-10-09] MEDS ORDERED: ALBUTEROL NEBULIZED 2.5 MG/3 ML INHALATION PRN (18:43)
--- NOTE | 2020-10-09 20:03 | PN ---
PROGRESS NOTE DATE OF SERVICE: 10/09/2020 This 40-year-old gentleman who was admitted with thickening of the terminal ileum with possible Crohn's disease is being closely monitored at this time. The patient also had a CT angio of the chest which showed no evidence of acute pulmonary embolism. No chest pain. No palpitations. No fever. PHYSICAL EXAMINATION: Alert and oriented x3. Pulse 79, blood pressure 130/69, respiration 18, temperature 98.3, pulse ox 97% on room air. HEENT: Conjunctivae normal. Oral mucosa moist. NECK: No jugular venous distention. No lymph node enlargement. CARDIOVASCULAR: S1, S2, muffled. No S3, no S4, RESPIRATORY: Diminished breath sounds at the bases. ABDOMEN: Soft, mild diffuse discomfort. NERVOUS SYSTEM: No focal deficits. LABS: WBC 3.2, hemoglobin 11.8, and magnesium 1.5. ASSESSMENT: 1. Abdominal pain with acute thickening of the terminal ileum, possibly Crohn's disease. 2. Acute alcohol abuse. 3. Acute alcohol withdrawal and delirium tremens. 4. Metabolic encephalopathy, toxic encephalopathy with change in mental status. 5. Fall and negative CT scan. 6. Depression, bipolar. 7. History of seizure disorder. 8. History of gastroesophageal reflux disease. 9. Hyponatremia. 10.Elevated AST/ALT secondary to alcoholic hepatitis. 11.Hypomagnesemia. 12.Mild leukopenia. 13.Mild anemia and thrombocytopenia with mild pancytopenia possibly secondary to alcohol. RECOMMENDATIONS AND DISCUSSION: I recommend to continue current management, continue symptomatic treatment. Otherwise, at this time we will continue to monitor. Guarded prognosis because of multiple complex medical issues. Further recommendations to follow. MMODL / IJN: [id number] /
[2020-10-09] MEDS ORDERED: traZODone HCL 100 MG TAB PO SCH (21:00)
[2020-10-09] MEDS ORDERED: busPIRone HCl 5 MG TAB PO SCH (21:00)
[2020-10-09] MEDS: MELATONIN 5 MG TABLET PO SCH (21:01)
[2020-10-09] MEDS: traZODone HCL 100 MG TAB PO SCH (21:01)
[2020-10-09] MEDS: Buprenorphine Hcl/Naloxone Hcl [Suboxone 8 Mg-2 Mg Sl Film] 1 EACH Fil SUBLINGUAL SCH (21:05)
[2020-10-10] MEDS: HYDROcodone/APAP 5-325MG 1 EACH TAB PO PRN ×3 (03:24→16:20)
[2020-10-10] MEDS ORDERED: PANTOPRAZOLE 40 MG TABLET PO SCH (07:30)
[2020-10-10] MEDS: guaiFENesin-DM 100-10MG/5ML 10 ML CUP PO SCH ×2 (08:10→10:11)
[2020-10-10] MEDS: Buprenorphine Hcl/Naloxone Hcl [Suboxone 8 Mg-2 Mg Sl Film] 1 EACH Fil SUBLINGUAL SCH ×2 (08:11→20:51)
[2020-10-10] MEDS: busPIRone HCl 5 MG TAB PO SCH ×2 (08:18→20:49)
[2020-10-10] MEDS: CYANOCOBALAMIN 500 MCG TAB PO SCH (08:19)
[2020-10-10] MEDS: THIAMINE 100 MG TAB PO SCH ×2 (08:19→16:20)
[2020-10-10] MEDS: MULTIVITAMINS, THERA 1 EACH TAB PO SCH (08:19)
[2020-10-10] MEDS: DULoxetine HCL 60 MG CAPSULE.DR PO SCH (08:19)
[2020-10-10] MEDS: chlordiazePOXIDE 25 MG CAP PO SCH ×2 (08:19→20:49)
[2020-10-10] MEDS: FOLIC ACID 1 MG TAB PO SCH (08:19)
[2020-10-10 09:45] LABS: Basophils # (A) 0.05 X 10*3/uL (0.00-0.10); Basophils % (A) 1.6 %; Eosinophils # (A) 0.17 X 10*3/uL (0.04-0.35); Eosinophils % (A) 5.4 %; HCT 37.7 % (39.6-50.0); HGB 12.3 g/dL (13.0-17.0); Lymphocytes # (A) 1.36 X 10*3/uL (0.90-5.00); Lymphocytes % (A) 43.2 %; MCH 29.6 pg (27.0-32.0); MCHC 32.6 g/dL (32.0-37.0); MCV 90.8 fL (80.0-97.0); Mean Platelet Volume 11.5 fL (9.5-12.2); Monocytes # (A) 0.55 X 10*3/uL (0.20-1.00); Monocytes % (A) 17.5 %; Neutrophils # (A) 1.01 X 10*3/uL (1.80-7.70); Platelet Count 150 X 10*3/uL (140-440); RBC 4.15 X 10*6/uL (4.40-5.60); RDW 14.8 % (11.5-14.5); WBC 3.15 X 10*3/uL (4.50-10.00)
[2020-10-10] MEDS: PANTOPRAZOLE 40 MG TABLET PO SCH ×2 (10:12→16:20)
[2020-10-10 10:22] LABS: African American GFR (CKD) 143.7 (60.0-200.0); Anion Gap 10.6 mmol/L (4.00-12.00); Calcium 9.3 mg/dL (8.7-10.3); Carbon Dioxide 21.4 mmol/L (21.6-31.8); Magnesium 1.4 mg/dL (1.5-2.4); Potassium 3.9 mmol/L (3.5-5.5)
[2020-10-10] MEDS: MAGNESIUM SULFATE-D5W PMX 1 GM in DEXTROSE/WATER 1 100ML.BAG IVPB SCH ×3 (12:04→16:57)
--- NOTE | 2020-10-10 20:48 | PN ---
PROGRESS NOTE DATE OF SERVICE: 10/10/2020 This 40-year-old gentleman who was admitted with an abdominal pain and thickening of the terminal ileum, possibly Crohn disease also had significant history of alcoholic abuse. Patient also has significant gait dysfunction and extremely tremulous at this time. A chest CT was done yesterday which showed no evidence of an acute pulmonary embolism. PHYSICAL EXAMINATION: Alert and oriented x3. Pulse 55, blood pressure 120/77, respirations 18. Temp 98 degrees, pulse ox 98% on room air. HEENT: Conjunctivae normal. NECK: No JVD. CARDIOVASCULAR: S1, S2 muffled. RESPIRATORY SYSTEM: Breath sounds diminished at the bases. A few scattered rhonchi. ABDOMEN: Soft. NERVOUS SYSTEM: No focal deficits. LABORATORY DATA: WBC 3.2, hemoglobin 12.3, platelets are 150. Other labs are noted. ASSESSMENT: 1. Acute alcohol intoxication present on admission. 2. Acute alcohol withdrawal and acute delirium tremens. 3. Gait dysfunction. 4. Abdominal pain with acute thickening of the terminal ileum, possibly Crohn's disease. 5. Metabolic encephalopathy, acute, possibly secondary to alcohol intoxication, change in mental status. 6. Depression, bipolar. 7. History of seizure disorder. 8. History of gastroesophageal reflux disease. 9. Hyponatremia. 10.Elevated AST/ALT secondary to alcoholic hepatitis. 11.Hypomagnesemia. 12.Mild pancytopenia secondary to possibly alcohol. 13.Hypomagnesemia. RECOMMENDATIONS AND DISCUSSION: In this 40-year-old gentleman who presented with multiple complex medical issues, we will monitor the patient closely, continue the current medications, management and symptomatic treatment. Otherwise, PT/OT evaluation. Possible inpatient substance abuse counseling. Fall precautions. Prognosis guarded because of multiple complex medical issues. Further recommendations to follow. We will check magnesium again. MMODL / IJN: [id number] /
[2020-10-10] MEDS: MELATONIN 5 MG TABLET PO SCH (20:49)
[2020-10-10] MEDS: traZODone HCL 100 MG TAB PO SCH (20:49)
[2020-10-11] MEDS: guaiFENesin-DM 100-10MG/5ML 10 ML CUP PO SCH ×4 (00:32→22:52)
[2020-10-11] MEDS: HYDROcodone/APAP 5-325MG 1 EACH TAB PO PRN ×4 (04:06→22:15)
[2020-10-11] MEDS: chlordiazePOXIDE 25 MG CAP PO SCH ×2 (08:17→22:15)
[2020-10-11] MEDS: busPIRone HCl 5 MG TAB PO SCH ×2 (08:17→22:15)
[2020-10-11] MEDS: DULoxetine HCL 60 MG CAPSULE.DR PO SCH (08:17)
[2020-10-11] MEDS: MULTIVITAMINS, THERA 1 EACH TAB PO SCH (08:17)
[2020-10-11] MEDS: CYANOCOBALAMIN 500 MCG TAB PO SCH (08:17)
[2020-10-11] MEDS: PANTOPRAZOLE 40 MG TABLET PO SCH ×2 (08:17→16:10)
[2020-10-11] MEDS: THIAMINE 100 MG TAB PO SCH ×2 (08:17→16:10)
[2020-10-11] MEDS: FOLIC ACID 1 MG TAB PO SCH (08:18)
[2020-10-11] MEDS: Buprenorphine Hcl/Naloxone Hcl [Suboxone 8 Mg-2 Mg Sl Film] 1 EACH Fil SUBLINGUAL SCH ×2 (08:23→19:57)
[2020-10-11 09:49] LABS: African American GFR (CKD) 134.9 (60.0-200.0); Anion Gap 7.4 mmol/L (4.00-12.00); BUN/Creat Ratio 28.57 Ratio (12.00-20.00); Carbon Dioxide 24.6 mmol/L (21.6-31.8); Magnesium 1.6 mg/dL (1.5-2.4); Non-African American GFR(CKD) 116.4 (60.0-200.0); Potassium 4.4 mmol/L (3.5-5.5)
[2020-10-11 10:03] LABS: Basophils # (A) 0.06 X 10*3/uL (0.00-0.10); Basophils % (A) 1.7 %; Eosinophils # (A) 0.18 X 10*3/uL (0.04-0.35); Eosinophils % (A) 5.2 %; HCT 37.4 % (39.6-50.0); HGB 12.3 g/dL (13.0-17.0); Lymphocytes # (A) 1.39 X 10*3/uL (0.90-5.00); Lymphocytes % (A) 40.2 %; MCH 30.4 pg (27.0-32.0); MCHC 32.9 g/dL (32.0-37.0); MCV 92.3 fL (80.0-97.0); Mean Platelet Volume 10.7 fL (9.5-12.2); Monocytes # (A) 0.85 X 10*3/uL (0.20-1.00); Monocytes % (A) 24.6 %; Neutrophils # (A) 0.97 X 10*3/uL (1.80-7.70); Platelet Count 190 X 10*3/uL (140-440); RBC 4.05 X 10*6/uL (4.40-5.60); RDW 15.3 % (11.5-14.5); WBC 3.46 X 10*3/uL (4.50-10.00)
[2020-10-11] MEDS: MELATONIN 5 MG TABLET PO SCH (22:15)
[2020-10-11] MEDS: traZODone HCL 100 MG TAB PO SCH (22:15)
--- NOTE | 2020-10-11 23:22 | PN ---
PROGRESS NOTE DATE OF SERVICE: 10/11/2020 This 40-year-old gentleman who was admitted after acute alcohol intoxication also had acute alcohol withdrawal and delirium tremens. No chest pain. No palpitations. No fever. The patient [facility]. PHYSICAL EXAMINATION: Alert and oriented times three. Pulse 90, blood pressure 108/57, respiration 18, temp 98.8, pulse ox 99% on room air. HEENT: Conjunctivae normal. NECK: No JVD. RESPIRATORY: Breath sounds diminished in the bases. No rhonchi. No crackles. ABDOMEN: Soft. Nontender. NERVOUS SYSTEM: Diffusely weak. Diffuse tremors also present, much improved. LAB: WBC 3.46, hemoglobin is 12.3. Other labs are noted. ASSESSMENT: 1. Acute alcohol intoxication, present on admission. 2. Acute alcohol withdrawal and acute delirium tremens. 3. Gait dysfunction, improving. 4. Abdominal pain with acute thickening of the terminal ileum, possibly Crohn's disease. 5. Metabolic encephalopathy, acute, possibly secondary to alcohol intoxication. 6. Change in mental status. 7. Depression, bipolar. 8. History of seizure disorder. 9. History of gastroesophageal reflux disease. 10.Hyponatremia. 11.Elevated AST/ALT secondary to alcoholic hepatitis. 12.Hypomagnesemia. 13.Mild pancytopenia secondary to possible alcohol. 14.Hypomagnesemia. RECOMMENDATIONS AND DISCUSSION: I recommend to continue current medication, symptomatic treatment. Otherwise repeat labs. Possibly alcohol rehab in the morning. Otherwise, we will continue to monitor along with CIWA protocol. Guarded prognosis. Further recommendations to follow. Psychiatric consultation appreciated. MMTACHOL / RODRIN: [id number] / CARLOS
[2020-10-12] MEDS: HYDROcodone/APAP 5-325MG 1 EACH TAB PO PRN ×2 (07:14→13:15)
[2020-10-12] MEDS: DULoxetine HCL 60 MG CAPSULE.DR PO SCH (07:15)
[2020-10-12] MEDS: MULTIVITAMINS, THERA 1 EACH TAB PO SCH (07:15)
[2020-10-12] MEDS: busPIRone HCl 5 MG TAB PO SCH (07:15)
[2020-10-12] MEDS: FOLIC ACID 1 MG TAB PO SCH (07:16)
[2020-10-12] MEDS: PANTOPRAZOLE 40 MG TABLET PO SCH (07:16)
[2020-10-12] MEDS: THIAMINE 100 MG TAB PO SCH (07:16)
[2020-10-12] MEDS: CYANOCOBALAMIN 500 MCG TAB PO SCH (07:16)
[2020-10-12] MEDS: chlordiazePOXIDE 25 MG CAP PO SCH (07:16)
[2020-10-12] MEDS: guaiFENesin-DM 100-10MG/5ML 10 ML CUP PO SCH (07:17)
[2020-10-12] MEDS: Buprenorphine Hcl/Naloxone Hcl [Suboxone 8 Mg-2 Mg Sl Film] 1 EACH Fil SUBLINGUAL SCH (07:19)
[2020-10-12] MEDS: IPRATROPIUM-ALBUTEROL 3 ML NEB INHALATION PRN (08:04)
[2020-10-12 10:17] LABS: Basophils # (A) 0.08 X 10*3/uL (0.00-0.10); Basophils % (A) 2.1 %; Eosinophils # (A) 0.21 X 10*3/uL (0.04-0.35); Eosinophils % (A) 5.6 %; HCT 38.3 % (39.6-50.0); HGB 12.5 g/dL (13.0-17.0); Lymphocytes # (A) 1.79 X 10*3/uL (0.90-5.00); MCH 30.3 pg (27.0-32.0); MCHC 32.6 g/dL (32.0-37.0); MCV 92.7 fL (80.0-97.0); Mean Platelet Volume 10.1 fL (9.5-12.2); Monocytes # (A) 0.82 X 10*3/uL (0.20-1.00); Neutrophils # (A) 0.81 X 10*3/uL (1.80-7.70); Neutrophils % (A) 21.8 %; Platelet Count 245 X 10*3/uL (140-440); RBC 4.13 X 10*6/uL (4.40-5.60); RDW 15.5 % (11.5-14.5); WBC 3.73 X 10*3/uL (4.50-10.00)
[2020-10-12 10:49] LABS: African American GFR (CKD) 107.1 (60.0-200.0); Anion Gap 11.7 mmol/L (4.00-12.00); Calcium 9.6 mg/dL (8.7-10.3); Carbon Dioxide 21.3 mmol/L (21.6-31.8); Non-African American GFR(CKD) 92.4 (60.0-200.0); Potassium 4.4 mmol/L (3.5-5.5)
--- NOTE | 2020-10-12 14:21 | P.DS ---
Providers Date of admission: 10/03/20 14:05 Expected date of discharge: 10/12/20 Attending physician: Bruno Wall MD Consults: 10/03/20 14:25 Consult Physician Routine Consulting Provider: Gonzales Rosales Consult Reason/Comments: depression and suicidal ideation Do you want consulting provider notified?: Already Contacted 10/04/20 15:08 Consult Physician Routine Consulting Provider: Monique Jackson Consult Reason/Comments: abdominal pain Do you want consulting provider notified?: Yes 10/05/20 13:44 Consult Physician Urgent Consulting Provider: Jamarcus Munoz Consult Reason/Comments: Left leg chronic DVT. Slightly elevated immature granulocyte Do you want consulting provider notified?: Yes Primary care physician: Kam Menchaca [facility] Course: Final diagnosis Acute alcohol intoxication, present on admission Acute alcohol withdrawal and acute delirium tremens Gait dysfunction, improving Abdominal pain with acute thickening of the terminal ileum, possibly Crohn's disease Metabolic encephalopathy, acute, possibly secondary to alcohol intoxication Change in mental status Depression, bipolar History of seizure disorder history of gastroesophageal reflux disease hyponatremia Elevated AST, ALT secondary to alcoholic hepatitis hypomagnesemia Mild pancytopenia secondary to possible alcohol Discharge disposition Patient is being discharged in a stable condition with guarded prognosis to [facility] for continued alcohol rehab. Patient will follow-up with Dr. Hemphill upon discharge. Patient will follow-up outpatient with hematology along with GI Dr. Willams and outpatient surgery Dr. Jackson as discussed. Total time taken is greater than 35 minutes. Hospital course This is a 40-year-old male who was recently admitted with acute alcohol intoxication also acute alcohol withdrawal and delirium tremens and was being closely monitored. Multiple medical consultations including GI and surgery evaluated the patient recommending outpatient follow-up as discussed. Patient also evaluated by hematology and will follow-up outpatient in the clinic as well. Patient will be going to [facility] for continued alcohol rehab. Currently no reports of chest pain, shortness of breath, or palpitations. Patient is afebrile. No reports of nausea or vomiting and patient is tolerating diet. Patient will be discharged to [facility] rehab. Guarded prognosis secondary to multiple readmissions for alcohol intoxication. On exam vital signs are stable. Cardio S1, S2 are muffled. Respiratory shows diminished breath sounds at the bases with a few scattered rhonchi noted. Abdomen is soft and nontender. Nervous system shows mild diffuse weakness. Please refer to medication reconciliation sheet for a list of medications. Patient Condition at Discharge: Stable Plan - Discharge Summary Discharge Rx Participant: Yes New Discharge Prescriptions: New Folic Acid 1 mg PO DAILY 30 Days #30 tab chlordiazePOXIDE HCl [Librium] 25 mg PO BID #6 cap Melatonin 5 mg PO HS tablet Cyanocobalamin [Vitamin B-12] 1,000 mcg PO DAILY 30 Days #60 tab Calcium Carbonate [Tums] 1,000 mg PO QID PRN chew PRN Reason: Heartburn Thiamine [Vitamin B-1] 100 mg PO BID-W/MEALS 30 Days #60 tab Continue Buprenorphine HCl/Naloxone HCl [Suboxone 8 mg-2 mg Sl Film] 1 film SL BID Loratadine [Claritin] 10 mg PO DAILY PRN PRN Reason: Allergy Symptoms busPIRone HCL 15 mg PO BID 30 Days tab Ibuprofen [Motrin] 600 mg PO DAILY PRN PRN Reason: Pain Omeprazole 20 mg PO DAILY Acetaminophen Tab [Tylenol] 650 mg PO Q6HR PRN tab PRN Reason: Mild Pain Or Fever > 100.5 DULoxetine HCL [Cymbalta] 60 mg PO DAILY 30 Days capsule. Multivjohnson Thera [Multivitamin (formulary)] 1 tab PO DAILY Albuterol Sulfate [Proair Hfa] 2 puff INHALATION RT-QID PRN 30 Days #1 inhaler PRN Reason: Shortness Of Breath traZODone HCL [Desyrel] 200 mg PO HS Pantoprazole [Protonix] 40 mg PO DAILY Discontinued Thiamine [Vitamin B-1] 100 mg PO DAILY 30 Days tab clonazePAM [KlonoPIN] 0.5 mg PO DAILY PRN PRN Reason: Anxiety Discharge Medication List Buprenorphine HCl/Naloxone HCl [Suboxone 8 mg-2 mg Sl Film] 1 film SL BID 03/06/20 [History] Loratadine [Claritin] 10 mg PO DAILY PRN 06/26/20 [History] DULoxetine HCL [Cymbalta] 60 mg PO DAILY 30 Days capsule. 08/31/20 [Rx] busPIRone HCL 15 mg PO BID 30 Days tab 08/31/20 [Rx] Ibuprofen [Motrin] 600 mg PO DAILY PRN 09/13/20 [History] Multivitamins, Thera [Multivitamin (formulary)] 1 tab PO DAILY 09/13/20 [History] Omeprazole 20 mg PO DAILY 09/13/20 [History] Acetaminophen Tab [Tylenol] 650 mg PO Q6HR PRN tab 09/15/20 [Rx] Albuterol Sulfate [Proair Hfa] 2 puff INHALATION RT-QID PRN 30 Days #1 inhaler 09/15/20 [Rx] Pantoprazole [Protonix] 40 mg PO DAILY 10/03/20 [History] traZODone HCL [Desyrel] 200 mg PO HS 10/03/20 [History] Calcium Carbonate [Tums] 1,000 mg PO QID PRN chew 10/12/20 [Rx] Cyanocobalamin [Vitamin B-12] 1,000 mcg PO DAILY 30 Days #60 tab 10/12/20 [Rx] Folic Acid 1 mg PO DAILY 30 Days #30 tab 10/12/20 [Rx] Melatonin 5 mg PO HS tablet 10/12/20 [Rx] Thiamine [Vitamin B-1] 100 mg PO BID-W/MEALS 30 Days #60 tab 10/12/20 [Rx] chlordiazePOXIDE HCl [Librium] 25 mg PO BID #6 cap 10/12/20 [Rx] Follow up Appointment(s)/Referral(s): Jamarcus Munoz MD [STAFF PHYSICIAN] - 10 Days (space operations ) Yusef Hemphill MD [REFERRING] - 1-2 days Kristy Willams MD [STAFF PHYSICIAN] - 2 Weeks (gastro-enterologist ) Monique Jackson DO [Doctor of Osteopathic Medicine] - 10 Days Ambulatory/Diagnostic Orders: Complete Blood Count w/diff [LAB.AMB] Time Frame: 2 Days, Location: None Selected Patient Instructions/Handouts: Alcohol Withdrawal (DC) Activity/Diet/Wound Care/Special Instructions: Patient is going to [facility] Activity Limited until follow-up Follow-up with primary care provider upon discharge Repeat labs in 2-3 days Continue with medications as prescribed Avoid alcohol Discharge Disposition: OTHER INSTITUTION NOT DEFINED
[2020-10-12 15:24] VITALS: BP 107/67; PULSE 98; RESP 18; TEMP 98.6
== END 2020-10-12 16:30 | disposition other institution (70) | DRG 896 ==
LOC: EC 11:16 → 4SSUR 14:05
PROVIDERS: ADMIT Internal Medicine; ATTEND Internal Medicine
PROC: 05HA33Z Insertion of Infusion Device into Left Brachial Vein, Percutaneous Approach (ICD-10-PCS; principal; 2020-10-08 19:10)
DX: F10.229 Alcohol dependence with intoxication, unspecified (principal); G92 Toxic encephalopathy; F11.20 Opioid dependence, uncomplicated; D61.818 Other pancytopenia; R45.851 Suicidal ideations; E87.1 Hypo-osmolality and hyponatremia; I82.502 Chronic embolism and thrombosis of unspecified deep veins of left lower extremity; F31.9 Bipolar disorder, unspecified; F10.231 Alcohol dependence with withdrawal delirium; G40.909 Epilepsy, unspecified, not intractable, without status epilepticus; Z20.822 Contact with and (suspected) exposure to COVID-19; J44.9 Chronic obstructive pulmonary disease, unspecified; F17.200 Nicotine dependence, unspecified, uncomplicated; Y90.8 Blood alcohol level of 240 mg/100 ml or more; K21.9 Gastro-esophageal reflux disease without esophagitis; E83.42 Hypomagnesemia; W10.9XXA Fall (on) (from) unspecified stairs and steps, initial encounter; F41.9 Anxiety disorder, unspecified; R19.7 Diarrhea, unspecified; R00.1 Bradycardia, unspecified; Z82.5 Family history of asthma and other chronic lower respiratory diseases; F60.89 Other specific personality disorders; R26.9 Unspecified abnormalities of gait and mobility; K70.10 Alcoholic hepatitis without ascites; Z79.899 Other long term (current) drug therapy
CPT/HCPCS: 36410; 36415; 70450; 71045; 71275; 72125; 74176; 76937; 80048; 80053; 80076; 80320; 82140; 82306; 82607; 82728; 82746; 83540; 83550; 83615; 83735; 83921; 84145; 84443; 84484; 85025; 85045; 85379; 85384; 85610; 85652; 85730; 86140; 87635; 93005; 93970; 94640; 94760; 96360; 99285

== ENCOUNTER 2021-01-02 10:15 | Inpatient (IN) | payer OTHER ==
[2021-01-02] MEDS ORDERED: SODIUM CHLORIDE 0.9% 1,000 ML IV ONE (10:49)
[2021-01-02] MEDS ORDERED: SODIUM CHLORIDE 0.9% 500 ML 500 ML IV ONE (10:49)
--- NOTE | 2021-01-02 11:14 | ED ---
General Adult HPI - General Chief complaint: Alcohol Stated complaint: depression Time Seen by Provider: 01/02/21 10:40 Source: patient, EMS, RN notes reviewed, old records reviewed Mode of arrival: EMS - History of Present Illness Initial comments: This is a 40-year-old male who presents emergency Department complaining to EMS that he was short of breath. When EMS arrived patient was highly intoxicated and he admits to drinking quite heavily lately. Patient denies any drug use. Patient states he did feel short of breath earlier but is not feeling too short of breath currently. Patient denies any chest pain. Patient denies any recent injury or trauma. Patient has abdominal pain patient denies nausea vomiting diarrhea. Patient denies any recent fever chills or cough. Patient denies suicidal ideations. - Related Data Home Medications Medication Instructions Recorded Confirmed Buprenorphine HCl/Naloxone HCl 0.5 - 1 film SL TID 03/06/20 01/02/21 [Suboxone 8 mg-2 mg Sl Film] Omeprazole 20 mg PO DAILY 09/13/20 01/02/21 Ibuprofen [Motrin] 800 mg PO TID PRN 01/02/21 01/02/21 traZODone HCL 150 mg PO HS 01/02/21 01/02/21 Previous Rx's Medication Instructions Recorded DULoxetine HCL [Cymbalta] 60 mg PO DAILY 30 Days capsule. 08/31/20 busPIRone HCL 15 mg PO BID 30 Days tab 08/31/20 Albuterol Sulfate [Proair Hfa] 2 puff INHALATION RT-QID PRN 30 09/15/20 Days #1 inhaler Allergies Allergy/AdvReac Type Severity Reaction Status Date / Time No Known Allergies Allergy Verified 01/02/21 12:25 Review of Systems ROS Statement: Those systems with pertinent positive or pertinent negative responses have been documented in the HPI. ROS Other: All systems not noted in ROS Statement are negative. Past Medical History Past Medical History: COPD, GERD/Reflux, Seizure Disorder Additional Past Medical History / Comment(s): Alcoholism , pt has scoliosis as a child History of Any Multi-Drug Resistant Organisms: None Reported Past Surgical History: No Surgical Hx Reported Additional Past Surgical History / Comment(s): Strabismus surgery as a child- Left eye surgery. blind in left eye Past Anesthesia/Blood Transfusion Reactions: No Reported Reaction Past Psychological History: Anxiety, Bipolar, Depression Smoking Status: Current every day smoker Past Alcohol Use History: Abuse, Daily, Heavy Past Drug Use History: None Reported - Past Family History Father Family Medical History: COPD Additional Family Medical History / Comment(s): Father is alive in his 50s with history of COPD. Sister(s) Additional Family Medical History / Comment(s): He has 5 sisters and one has drug abuse issues. Patient does not have any brothers. He has one 5-year-old daughter. Mother History Unknown: Yes Additional Family Medical History / Comment(s): Mother is alive in her 50s with no major medical problems. General Exam - General Exam Comments Initial Comments: GENERAL: Patient is well-developed and well-nourished. Patient is nontoxic and well- hydrated and is in no acute distress. Patient appears very intoxicated ENT: Neck is soft and supple. No significant lymphadenopathy is noted. Oropharynx is clear. Moist mucous membranes. Neck has full range of motion without el iciting any pain. EYES: The sclera were anicteric and conjunctiva were pink and moist. Extraocular movements were intact and pupils were equal round and reactive to light. Eyelids were unremarkable. PULMONARY: Unlabored respirations. Good breath sounds bilaterally. No audible rales rhonchi or wheezing was noted. CARDIOVASCULAR: There is a regular rate and rhythm without any murmurs gallops or rubs. ABDOMEN: Soft and nontender with normal bowel sounds. SKIN: Skin is clear with no lesions or rashes and otherwise unremarkable. NEUROLOGIC: Patient is alert and oriented x3. Cranial nerves II through XII are grossly intact. Motor and sensory are also intact. Normal speech, volume and content. Symmetrical smile. MUSCULOSKELETAL: Normal extremities with adequate strength and full range of motion. LYMPHATICS: No significant lymphadenopathy is noted PSYCHIATRIC: Patient denies any suicidal homicidal ideations. Course Vital Signs 01/02/21 01/02/21 01/02/21 10:40 10:45 14:00 Temperature 97.5 F L Pulse Rate 66 72 57 L Respiratory 16 16 18 Rate Blood Pressure 105/66 94/61 O2 Sat by Pulse 98 98 100 Oximetry Medical Decision Making - Medical Decision Making EKG shows normal sinus rhythm at 71 bpm LA interval is 144 De Jesus is 116 QT interval is 432 QTC is 469. Patient's EKG shows no ST segment elevation or depression. Patient has alcohol intoxication. Patient complained of difficulty breathing however on room air the patient was oxygenating 98% chest x-ray shows no acute abnormality. I spoke with Dr. Randle she agreed to admit the patient admitted the patient I wrote admitting orders. - Lab Data Result diagrams: 01/02/21 14:00 01/02/21 14:00 Lab Results 01/02/21 01/02/21 Range/Units 14:00 14:00 WBC 3.8 (3.8-10.6) k/uL RBC 4.46 (4.30-5.90) m/uL Hgb 13.1 (13.0-17.5) gm/dL Hct 41.0 (39.0-53.0) % MCV 92.0 (80.0-100.0) fL MCH 29.5 (25.0-35.0) pg MCHC 32.1 (31.0-37.0) g/dL RDW 14.1 (11.5-15.5) % Plt Count 206 (150-450) k/uL MPV 7.4 Neutrophils % 39 % Lymphocytes % 53 % Monocytes % 3 % Eosinophils % 2 % Basophils % 1 % Neutrophils # 1.5 (1.3-7.7) k/uL Lymphocytes # 2.0 (1.0-4.8) k/uL Monocytes # 0.1 (0-1.0) k/uL Eosinophils # 0.1 (0-0.7) k/uL Basophils # 0.1 (0-0.2) k/uL Sodium 145 (137-145) mmol/L Potassium 4.1 (3.5-5.1) mmol/L Chloride 106 (98-107) mmol/L Carbon Dioxide 23 (22-30) mmol/L Anion Gap 16 mmol/L BUN 13 (9-20) mg/dL Creatinine 0.57 L (0.66-1.25) mg/dL Est GFR (CKD-EPI)AfAm >90 (>60 ml/min/1.73 sqM) Est GFR (CKD-EPI)NonAf >90 (>60 ml/min/1.73 sqM) Glucose 87 (74-99) mg/dL Calcium 8.8 (8.4-10.2) mg/dL Magnesium 1.2 L (1.6-2.3) mg/dL Total Bilirubin 0.4 (0.2-1.3) mg/dL AST 79 H (17-59) U/L ALT 33 (4-49) U/L Alkaline Phosphatase 61 (38-126) U/L Total Protein 7.5 (6.3-8.2) g/dL Albumin 4.6 (3.5-5.0) g/dL Serum Alcohol 253 H* mg/dL Disposition Clinical Impression: Alcohol intoxication Referrals: Yusef Hemphill MD [Primary Care Provider] - 1-2 days
[2021-01-02] MEDS ORDERED: SODIUM CHLORIDE 0.9% 1,000 ML with MVI, ADULT NO.4 WITH VIT K 10 ML, THIAMINE 100 MG, F... IV ONE ×4 (11:30)
--- NOTE | 2021-01-02 11:50 | XR ---
EXAMINATION TYPE: XR chest 2V DATE OF EXAM: 01/02/2021 COMPARISON: 10/03/2020 HISTORY: Chest pain TECHNIQUE: Frontal and lateral views of the chest are obtained. FINDINGS: There is no focal air space opacity. No evidence for pneumothorax. No pleural effusion. The cardiac silhouette size is within normal limits. The osseous structures are grossly intact. IMPRESSION: 1. No acute cardiopulmonary process.
[2021-01-02] MEDS ORDERED: PANTOPRAZOLE 40 MG TABLET PO STA (12:36)
[2021-01-02 14:09] LABS: Basophils # (A) 0.1 k/uL (0-0.2); Basophils % (A) 1 %; Eosinophils # (A) 0.1 k/uL (0-0.7); Eosinophils % (A) 2 %; HGB 13.1 gm/dL (13.0-17.5); Lymphocytes % (A) 53 %; MCH 29.5 pg (25.0-35.0); MCHC 32.1 g/dL (31.0-37.0); Mean Platelet Volume 7.4; Monocytes # (A) 0.1 k/uL (0-1.0); Monocytes % (A) 3 %; Neutrophils # (A) 1.5 k/uL (1.3-7.7); Neutrophils % (A) 39 %; Platelet Count 206 k/uL (150-450); RBC 4.46 m/uL (4.30-5.90); RDW 14.1 % (11.5-15.5); WBC 3.8 k/uL (3.8-10.6)
[2021-01-02 14:21] LABS: ALT 33 U/L (4-49); AST 79 U/L (17-59); African American GFR (CKD) >90 (>60 ml/min/1.73 sqM); Albumin 4.6 g/dL (3.5-5.0); Alkaline Phosphatase 61 U/L (38-126); Anion Gap 16 mmol/L; Blood Urea Nitrogen 13 mg/dL (9-20); Calcium 8.8 mg/dL (8.4-10.2); Carbon Dioxide 23 mmol/L (22-30); Chloride 106 mmol/L (98-107); Glucose 87 mg/dL (74-99); Magnesium 1.2 mg/dL (1.6-2.3); Non-African American GFR(CKD) >90 (>60 ml/min/1.73 sqM); Potassium 4.1 mmol/L (3.5-5.1); Sodium 145 mmol/L (137-145); Total Bilirubin 0.4 mg/dL (0.2-1.3); Total Protein 7.5 g/dL (6.3-8.2)
[2021-01-02 14:38] LABS: Alcohol 253 mg/dL
[2021-01-02] MEDS ORDERED: THIAMINE 100 MG/ML 2 ML VIAL IM STA (14:57)
[2021-01-02] MEDS: LORazepam 2 MG/ML INJ IV PRN ×3 (15:50→23:16)
[2021-01-02] MEDS: MAGNESIUM SULFATE-D5W PMX 1 GM in DEXTROSE/WATER 1 100ML.BAG IVPB SCH ×2 (16:57→18:16)
--- NOTE | 2021-01-02 22:20 | P.HPIM ---
History of Present Illness H&P Date: 01/02/21 Chief Complaint: Shortness of breath Mr. Marie is a 40-year-old male with a past medical history of GERD, COPD, seizure disorder, alcoholism coming into the hospital with a chief complaint of difficulty in breathing. Patient states that he has been drinking heavily for the past 1 week without eating much then started to have mild difficulty in breathing so came into the hospital for further evaluation. Patient denied having any cough. He denies having any fevers chills or rigors. No sick contacts. He denies having any recent travel. Patient denies having any chest pain, palpitations or lower extremity swelling. Patient states that he has history of COPD and takes albuterol on an as-needed basis. He states that he has significant alcohol history and has been drinking a lot for the past 1 week. Patient denies having any abdominal pain, nausea vomiting or diarrhea. He denies having any dysuria or hematuria. In the ED patient's vitals 97.5, heart rate 66, respiratory rate 16, blood pressure 105/66, saturating at 98% on room air. Patient had a chest x-ray done showing no acute cardiopulmonary process. EKG done showing normal sinus rhythm. Reviewing the labs at admission white count of 3.8, hemoglobin 13.1, platelet count 106. Sodium 145, potassium 4.1, chloride 106, bicarb 23, BUN 13, creatinine 0.57, magnesium 1.2, AST 79, ALT 33, alcohol level of 253. Review of Systems REVIEW OF SYSTEMS: CONSTITUTIONAL: No fever, no malaise, no fatigue. HEENT: No headache, no neck stiffness, no blurring of vision CARDIOVASCULAR: No chest pain, no palpitations PULMONARY: No cough or difficulty in breathing GASTROINTESTINAL: No Abdominal pain nausea vomiting or diarrhea NEUROLOGICAL: No weakness of extremities HEMATOLOGICAL: Denies any bleeding or petechiae. GENITOURINARY: Denies any burning micturition, frequency, or urgency. MUSCULOSKELETAL/RHEUMATOLOGICAL: Denies any joint pain, swelling, or any muscle pain. ENDOCRINE: Denies polyuria polydipsia or heat or cold intolerance The rest of the 14-point review of systems is negative. Past Medical History Past Medical History: COPD, GERD/Reflux, Seizure Disorder Additional Past Medical History / Comment(s): Alcoholism , pt has scoliosis as a child History of Any Multi-Drug Resistant Organisms: None Reported Past Surgical History: No Surgical Hx Reported Additional Past Surgical History / Comment(s): Strabismus surgery as a child- Left eye surgery. blind in left eye Past Anesthesia/Blood Transfusion Reactions: No Reported Reaction Past Psychological History: Anxiety, Bipolar, Depression Smoking Status: Current every day smoker Past Alcohol Use History: Abuse, Daily, Heavy Past Drug Use History: None Reported - Past Family History Father Family Medical History: COPD Additional Family Medical History / Comment(s): Father is alive in his 50s with history of COPD. Sister(s) Additional Family Medical History / Comment(s): He has 5 sisters and one has drug abuse issues. Patient does not have any brothers. He has one 5-year-old daughter. Mother History Unknown: Yes Additional Family Medical History / Comment(s): Mother is alive in her 50s with no major medical problems. Medications and Allergies Home Medications Medication Instructions Recorded Confirmed Type Buprenorphine HCl/Naloxone HCl 0.5 - 1 film SL TID 03/06/20 01/02/21 History [Suboxone 8 mg-2 mg Sl Film] DULoxetine HCL [Cymbalta] 60 mg PO DAILY 30 Days capsule. 08/31/20 01/02/21 Rx busPIRone HCL 15 mg PO BID 30 Days tab 08/31/20 01/02/21 Rx Omeprazole 20 mg PO DAILY 09/13/20 01/02/21 History Albuterol Sulfate [Proair Hfa] 2 puff INHALATION RT-QID PRN 30 09/15/20 01/02/21 Rx Days #1 inhaler Ibuprofen [Motrin] 800 mg PO TID PRN 01/02/21 01/02/21 History traZODone HCL 150 mg PO HS 01/02/21 01/02/21 History Allergies Allergy/AdvReac Type Severity Reaction Status Date / Time No Known Allergies Allergy Verified 01/02/21 12:25 Physical Exam Vitals: Vital Signs Temp Pulse Resp BP Pulse Ox 01/02/21 14:00 57 L 18 94/61 100 01/02/21 10:45 72 16 98 01/02/21 10:40 97.5 F L 66 16 105/66 98 Intake and Output 01/02/21 01/02/21 01/02/21 06:59 14:59 22:59 Other: Weight 58.967 kg PHYSICAL EXAMINATION: GENERAL: Comfortably lying up in the bed appears to be no acute distress. HEENT: Pupils are round and equally reacting to light. EOMI. No scleral icterus. No conjunctival pallor. CARDIOVASCULAR: S1 and S2 present. No murmurs, rubs, or gallops. PULMONARY: Bilateral breath sounds positive. No wheeze or crackles.. ABDOMEN: Soft,non -tender, normal bowel sounds. No guarding or rigidity. MUSCULOSKELETAL: No joint swelling or deformity. EXTREMITIES: No edema NEUROLOGICAL: Gross neurological examination did not reveal any focal deficits. SKIN:No rash Results CBC & Chem 7: 01/02/21 14:00 01/02/21 14:00 Labs: Abnormal Lab Results - Last 24 Hours (Table) 01/02/21 Range/Units 14:00 Creatinine 0.57 L (0.66-1.25) mg/dL Magnesium 1.2 L (1.6-2.3) mg/dL AST 79 H (17-59) U/L Serum Alcohol 253 H* mg/dL Assessment and Plan Assessment: ASSESSMENT Acute alcohol intoxication Shortness of breath resolved Seizure disorder GERD Hypomagnesemia Mild transaminitis Scoliosis Left eye strabismus PLAN: Patient is admitted for acute alcohol intoxication, will monitor for DTs. Patient on CIWA protocol. Patient does not complain of any difficulty breathing currently, his chest x-ray is negative for any acute cardiopulmonary process and he saturating 100% on room air. Patient has been restarted on his home medications. Further recommendations to follow depending on the progress of the patient.
[2021-01-02] MEDS: PANTOPRAZOLE 40 MG TABLET PO SCH (23:20)
[2021-01-02] MEDS: busPIRone HCl 5 MG TAB PO SCH (23:24)
[2021-01-03] MEDS: LORazepam 2 MG/ML INJ IV PRN ×7 (02:29→21:39)
[2021-01-03 09:11] LABS: Basophils # (A) 0.04 X 10*3/uL (0.00-0.10); Basophils % (A) 1.2 %; Eosinophils # (A) 0.13 X 10*3/uL (0.04-0.35); Eosinophils % (A) 3.8 %; HCT 34.3 % (39.6-50.0); HGB 11.4 g/dL (13.0-17.0); Lymphocytes # (A) 1.47 X 10*3/uL (0.90-5.00); Lymphocytes % (A) 42.5 %; MCH 29.4 pg (27.0-32.0); MCHC 33.2 g/dL (32.0-37.0); MCV 88.4 fL (80.0-97.0); Mean Platelet Volume 10.6 fL (9.5-12.2); Monocytes % (A) 8.7 %; Neutrophils # (A) 1.51 X 10*3/uL (1.80-7.70); Neutrophils % (A) 43.5 %; Platelet Count 156 X 10*3/uL (140-440); RBC 3.88 X 10*6/uL (4.40-5.60); RDW 13.9 % (11.5-14.5); WBC 3.46 X 10*3/uL (4.50-10.00)
[2021-01-03] MEDS: PANTOPRAZOLE 40 MG TABLET PO SCH (10:11)
[2021-01-03] MEDS: THIAMINE 100 MG TAB PO SCH ×2 (10:11→17:49)
[2021-01-03] MEDS: busPIRone HCl 5 MG TAB PO SCH ×2 (10:11→21:19)
[2021-01-03 12:05] LABS: African American GFR (CKD) 134.9 (60.0-200.0); Anion Gap 8.7 mmol/L (4.00-12.00); Calcium 9.1 mg/dL (8.7-10.3); Carbon Dioxide 27.3 mmol/L (21.6-31.8); Magnesium 1.4 mg/dL (1.5-2.4); Non-African American GFR(CKD) 116.4 (60.0-200.0); Potassium 3.7 mmol/L (3.5-5.5)
[2021-01-03] MEDS ORDERED: HYDROcodone/APAP 5-325MG 1 EACH TAB PO PRN (13:01)
[2021-01-03 20:12] VITALS: RESP 16
[2021-01-03] MEDS: HEPARIN SODIUM,PORCINE/PF 5,000 UNIT/0.5 ML SYRINGE SQ SCH (21:19)
[2021-01-04] MEDS: LORazepam 2 MG/ML INJ IV PRN ×2 (02:46→15:39)
[2021-01-04] MEDS: THIAMINE 100 MG TAB PO SCH ×2 (06:44→15:39)
[2021-01-04] MEDS: PANTOPRAZOLE 40 MG TABLET PO SCH (06:44)
[2021-01-04 08:06] LABS: Potassium 3.8 mmol/L (3.5-5.1)
[2021-01-04 08:07] LABS: African American GFR (CKD) >90 (>60 ml/min/1.73 sqM); Anion Gap 7 mmol/L; Blood Urea Nitrogen 12 mg/dL (9-20); Calcium 9.7 mg/dL (8.4-10.2); Carbon Dioxide 26 mmol/L (22-30); Chloride 104 mmol/L (98-107); Glucose 101 mg/dL (74-99); Magnesium 1.3 mg/dL (1.6-2.3); Non-African American GFR(CKD) >90 (>60 ml/min/1.73 sqM); Sodium 137 mmol/L (137-145)
[2021-01-04 08:16] LABS: Basophils % (A) 1 %; Eosinophils # (A) 0.1 k/uL (0-0.7); Eosinophils % (A) 4 %; HCT 38.8 % (39.0-53.0); HGB 13.1 gm/dL (13.0-17.5); Lymphocytes # (A) 1.6 k/uL (1.0-4.8); Lymphocytes % (A) 56 %; MCH 30.7 pg (25.0-35.0); MCHC 33.7 g/dL (31.0-37.0); Mean Platelet Volume 8.2; Monocytes # (A) 0.1 k/uL (0-1.0); Monocytes % (A) 4 %; Neutrophils # (A) 0.9 k/uL (1.3-7.7); Neutrophils % (A) 32 %; Platelet Count 140 k/uL (150-450); RBC 4.27 m/uL (4.30-5.90); RDW 14.4 % (11.5-15.5); WBC 2.8 k/uL (3.8-10.6)
[2021-01-04 10:43] LABS: Anisocytosis (M) Present; Poikilocytosis (M) Present
[2021-01-04] MEDS: HEPARIN SODIUM,PORCINE/PF 5,000 UNIT/0.5 ML SYRINGE SQ SCH ×2 (12:03→21:47)
[2021-01-04] MEDS: busPIRone HCl 5 MG TAB PO SCH ×2 (12:03→21:47)
[2021-01-04] MEDS: FAMOTIDINE 20 MG/2 ML VIAL IV SCH ×2 (12:04→21:47)
[2021-01-04] MEDS ORDERED: cloNIDine HCL 0.1 MG TAB PO PRN (13:50)
--- NOTE | 2021-01-04 13:58 | P.CN ---
Psychiatric Consult - . Consult date: 01/04/21 Consult:: 01/04/21 12:25 IDENTIFYING DATA: This patient is a 40-year-old single male with a significant history of alcohol use and opiate dependence who presented to the hospital for alcohol intoxication and SOB Reason for referral : etoh and depression HISTORY OF PRESENT ILLNESS: The patient presented to the hospital intoxicated yesterday with a blood alcohol level of 253. Patient was also complaining of shortness of breath on admission. Patient has a long history of several medical and psychiatric admissions for depression and alcohol use/abuse. Patient was fairly disinterested in conversation today and was guarded/evasive. He minimizes alcohol use and states that "I just need to go back to meetings". He states that he was just in [place] for rehab last month and stayed for one month. He claims that he does not feel like going back to rehab at this time. He states that he doesn't "feel right" and states that he is withdrawing from his Suboxone. He claims that he needs this medication and requested several times to bond underwriter. He states that his mood is "fine" and describes some mild shaking. He states that his sleep has been poor and appetite as been poor and admits to not taking his medications. He denies any increase in goal-directed activity, pressured speech, or mood swings. He is not reporting any auditory or visual hallucinations. He denies any suicidal or homicidal ideations intent or plan. He denies any paranoia or other delusions. Patient does have significant history of substance abuse. He does have a history of severe alcohol withdrawal. Furthermore, the patient is also receiv ing Suboxone from his outpatient primary care provider. The patient also smokes 1 pack per day of tobacco. The patient denies any illicit drug use. PAST PSYCHIATRIC HISTORY: Patient has a a history of alcohol abuse and depression/anxiety. Patient was previously on Cymbalta and BuSpar and trazodone however states that he has not been taking his medications. He has had several psychiatric admissions in the past. Patient denies any psychiatric outpatient follow-up. Patient denies any history of suicide attempts in the past. PAST MEDICAL HISTORY: COPD, GERD/Reflux, Seizure Disorder ALLERGIES: NO KNOWN DRUG ALLERGIES CHEMICAL DEPENDENCY HISTORY: as per HPI. FAMILY PSYCHIATRIC/SUBSTANCE USE HISTORY: denies SOCIAL HISTORY: Patient was born and raised in [facility]. Nicole fernandez currently lives with his father. The patient reports graduating high school. He has an 8-year-old daughter. He is currently unemployed. MENTAL STATUS EXAM: General Appearance: Patient appears to be older than stated age is alert, fairly uncooperative, guarded/evasive. Patient appears to have poor hygiene and grooming wearing hospital gown with poor eye contact. Behavior: Patient is calmly lying in bed without any agitated behavior. Constricted affect. Speech: Patient's speech is fluent and nonpressured. Soft tone. mumbling Mood/Affect: Patient reports their mood is "not good", affect is constricted Suicidality/Homicidality: Patient is denying any suicidal or homicidal ideation, intention, and/or plan. Perceptions: Patient denies any visual hallucinations and denies any auditory hallucinations Though content/process: Solomon, poor historian, positive content. Minimizing his substance abuse Memory and concentration: AOX3, grossly intact for the purposes of this session. Can spell "WORLD" backwards Judgment and insight: Chronically poor IMPRESSIONS: Depressive disorder unspecified Alcohol use disorder, severe, currently in withdrawal Nicotine dependence Opioid dependence, currently in withdrawal History of cluster B personality traits PLAN: -At this time patient DOES NOT meet criteria for inpatient psychiatric admission. -Would recommend the following medication changes/additions: Patient states that he does not want to be back on an antidepressant med at this time. continue with BuSpar 15 mg twice a day for anxiety, trazodone was restarted at 100 mg daily at bedtime for insomnia/mood. added clonidine 0.1 mg tid for opioid w/d if patient is not able to have his suboxone while in the hospital. -CIWA protocol with PRN Ativan for alcohol withdrawal. Continue to monitor vital signs. -Headend Technician spoke with patient about substance abuse and the harmful effects on medical and mental health, patient verbally understood and agreed however was disinterested in rehab or treatment. -woodworker to provide patient substance use treatment resources including AA/NA meetings in the community. -woodworker to provide patient with access line number to call for inpatient substance rehab -Communicated plan to patient's nurse -Will continue to follow along -Please contact with any questions. 01/04/21 13:52
[2021-01-04 14:52] VITALS: BMI 18.6
[2021-01-04] MEDS: MULTIVITAMINS, THERA 1 EACH TAB PO SCH (15:39)
[2021-01-04] MEDS: FOLIC ACID 1 MG TAB PO SCH (15:39)
[2021-01-04] MEDS ORDERED: POTASSIUM CHLORIDE ER 20 MEQ TAB.ER PO STA (20:25)
[2021-01-04] MEDS ORDERED: SODIUM CHLORIDE 0.9% 1,000 ML IV ONE ×2 (20:28→20:40)
--- NOTE | 2021-01-04 20:34 | P.PN ---
Subjective This is a pleasant 40 years old male with past medical history of opioid abuse on Suboxone, depression, anxiety, substance abuse. Presents with signs symptoms of depression and alcohol intoxication, he was already started on CIWA protocol and thiamine. Today his common bed pleasant not in distress. Denies any specific physical complaint like no chest pain or dyspnea. No coughing or abdominal pain. No nausea vomiting. And in urine or bowel habits. No fever. Patient states he is willing to quit alcohol. Psychiatrist evaluated the patient and found him does not meet criteria for inpatient psychiatric admission however he had the trazodone and clonidine. Vitals and labs are reviewed, held mild pancytopenia possibly secondary to alcohol affect. Low magnesium at 1.3 is been replaced. Potassium low-normal 3.8 also replaced. Blood pressure is borderline and because was started on clonidine going to give him a bolus of normal saline. His of CIWA score is 2-9 today. Objective - Vital Signs Vital signs: Vital Signs Temp 98.2 F 01/04/21 08:23 Pulse 72 01/04/21 14:00 Resp 16 01/04/21 14:00 BP 111/73 01/04/21 08:23 Pulse Ox 96 01/04/21 08:23 Intake & Output 01/03/21 01/04/21 01/04/21 18:59 06:59 18:59 Weight 58.967 kg Other: Voiding Method Urinal Urinal Urinal # Voids 2 - Exam GENERAL: The patient is alert and oriented x3, not in any acute distress. Well developed, well nourished. HEENT: Pupils are round and equally reacting to light. EOMI. No scleral icterus. No conjunctival pallor. Normocephalic, atraumatic. No pharyngeal erythema. No thyromegaly. CARDIOVASCULAR: S1 and S2 present. No murmurs, rubs, or gallops. PULMONARY: Chest is clear to auscultation, no wheezing or crackles. ABDOMEN: Soft, nontender, nondistended, normoactive bowel sounds. No palpable organomegaly. MUSCULOSKELETAL: No joint swelling or deformity. EXTREMITIES: No cyanosis, clubbing, or pedal edema. NEUROLOGICAL: Gross neurological examination did not reveal any focal deficits. SKIN: No rashes. no petechiae. 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 Continue same treatment. Continue with symptomatic treatment. Resume home medication. Monitor lytes and vitals. DVT and GI prophylaxis. Further recommendations as per clinical course of the patient DVT prophylaxis: Subcutaneous heparin GI Prophylaxis: Pepcid
[2021-01-04] MEDS ORDERED: traZODone HCL 100 MG TAB PO SCH (21:00)
[2021-01-04] MEDS: MAGNESIUM SULFATE-D5W PMX 1 GM in DEXTROSE/WATER 1 100ML.BAG IVPB SCH ×2 (21:48→23:12)
[2021-01-05] MEDS: MAGNESIUM SULFATE-D5W PMX 1 GM in DEXTROSE/WATER 1 100ML.BAG IVPB SCH (00:18)
[2021-01-05] MEDS: THIAMINE 100 MG TAB PO SCH (06:36)
[2021-01-05] MEDS: PANTOPRAZOLE 40 MG TABLET PO SCH (06:36)
[2021-01-05 08:23] LABS: African American GFR (CKD) >90 (>60 ml/min/1.73 sqM); Anion Gap 10 mmol/L; Blood Urea Nitrogen 15 mg/dL (9-20); Calcium 9.6 mg/dL (8.4-10.2); Carbon Dioxide 21 mmol/L (22-30); Chloride 108 mmol/L (98-107); Glucose 109 mg/dL (74-99); Non-African American GFR(CKD) >90 (>60 ml/min/1.73 sqM); Sodium 139 mmol/L (137-145)
[2021-01-05 08:28] LABS: Magnesium 1.7 mg/dL (1.6-2.3); Potassium 4.1 mmol/L (3.5-5.1)
[2021-01-05 08:39] VITALS: BP 94/59; PULSE 78; TEMP 98.1
[2021-01-05] MEDS: busPIRone HCl 5 MG TAB PO SCH (08:39)
[2021-01-05] MEDS: FAMOTIDINE 20 MG/2 ML VIAL IV SCH (08:40)
[2021-01-05] MEDS: MULTIVITAMINS, THERA 1 EACH TAB PO SCH (08:40)
[2021-01-05] MEDS: FOLIC ACID 1 MG TAB PO SCH (08:40)
[2021-01-05] MEDS: HEPARIN SODIUM,PORCINE/PF 5,000 UNIT/0.5 ML SYRINGE SQ SCH (08:42)
[2021-01-05] MEDS ORDERED: MAGNESIUM SULFATE-D5W PMX 1 GM in DEXTROSE/WATER 1 100ML.BAG IVPB ONE (09:29)
[2021-01-05] MEDS ORDERED: NON FORMULARY DRUG (Buprenorphine Hcl/Naloxone Hcl [Suboxone 8 Mg-2 Mg Sl Film] 1 EACH Fil SUBLINGUAL SCH (11:00)
[2021-01-05] MEDS ORDERED: CYANOCOBALAMIN 500 MCG TAB PO SCH (13:45)
[2021-01-05] MEDS ORDERED: FAMOTIDINE 20 MG TAB PO SCH (21:00)
--- NOTE | 2021-01-06 00:06 | P.DS ---
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 Presents with signs symptoms of depression and alcohol intoxication, he was already started on CIWA protocol and thiamine. He was treated with CIWA protocol, his score today was 0-3, from yesterday he needed only 1 dose of Ativan which was given yesterday morning. His been evaluated by psychiatrist and found him does not need inpatient psychiatric admission, patient did not want to start any antidepressant so he was continued with his BuSpar, his trazodone dose was lowered by psychiatrist 150 down to 100 mg daily and patient informed and he agrees. Today he is fully awake and oriented, calm, gait is normal. He denies any physical complaints. Past chest pain or dyspnea. Change in urine or bowel habits. No fever Patient agrees to be discharged today he wants to follow up with [facility] to help him with his alcohol problem and addiction problem. forest and conservation worker met with the patient and made him appointment with [facility] any 3 days after discharge, see discharge instruction for exact appointment date and time He Suboxone is resumed and patient was instructed to follow up with his PCP and he agrees Problems and management plan were discussed with the patient and he verbalized understanding and acceptance Patient was found stable and can be discharged home however he needs follow-up as an outpatient. Patient was instructed to follow up with PCP Dr. Villasenor within one week and patient agrees Physical exam Gen: patient is a AAOx3, no distress CVS: S1-S2, RRR, no murmur Lungs: B/L CTA, no wheezing Abdomen: soft, no distention, no tenderness, positive bowel sounds Extremity: no leg edema or induration Time spent more than 35 minutes Plan - Discharge Summary Discharge Rx Participant: No New Discharge Prescriptions: New Multivitamins, Thera [Multivitamin (formulary)] 1 each PO DAILY #30 tab Thiamine [Vitamin B-1] 100 mg PO BID-W/MEALS #30 tab Cyanocobalamin [Vitamin B-12] 500 mcg PO DAILY 30 Days #30 tablet Folic Acid 1 mg PO DAILY #30 tab Continue Buprenorphine HCl/Naloxone HCl [Suboxone 8 mg-2 mg Sl Film] 0.5 - 1 film SL TID busPIRone HCL 15 mg PO BID 30 Days tab Omeprazole 20 mg PO DAILY DULoxetine HCL [Cymbalta] 60 mg PO DAILY 30 Days capsule. Albuterol Sulfate [Proair Hfa] 2 puff INHALATION RT-QID PRN 30 Days #1 inhaler PRN Reason: Shortness Of Breath Ibuprofen [Motrin] 800 mg PO TID PRN PRN Reason: Pain Changed traZODone HCL 100 mg PO HS #0 Discharge Medication List Buprenorphine HCl/Naloxone HCl [Suboxone 8 mg-2 mg Sl Film] 0.5 - 1 film SL TID 03/06/20 [History] DULoxetine HCL [Cymbalta] 60 mg PO DAILY 30 Days capsule. 08/31/20 [Rx] busPIRone HCL 15 mg PO BID 30 Days tab 08/31/20 [Rx] Omeprazole 20 mg PO DAILY 09/13/20 [History] Albuterol Sulfate [Proair Hfa] 2 puff INHALATION RT-QID PRN 30 Days #1 inhaler 09/15/20 [Rx] Ibuprofen [Motrin] 800 mg PO TID PRN 01/02/21 [History] Cyanocobalamin [Vitamin B-12] 500 mcg PO DAILY 30 Days #30 tablet 01/05/21 [Rx] Folic Acid 1 mg PO DAILY #30 tab 01/05/21 [Rx] Multivitamins, Thera [Multivitamin (formulary)] 1 each PO DAILY #30 tab 01/05/21 [Rx] Thiamine [Vitamin B-1] 100 mg PO BID-W/MEALS #30 tab 01/05/21 [Rx] traZODone HCL 100 mg PO HS #0 01/05/21 [Rx] Follow up Appointment(s)/Referral(s): Yusef Hemphill MD [Primary Care Provider] - 01/06/21 1:10 pm Activity/Diet/Wound Care/Special Instructions: regular diet activity is restricted till you see your doctor Patient to follow up with [facility] on 01/08/21 at 9:00AM for intake. Discharge/Stand Alone Forms: AA Meetings [facility], Who Do I Call?, Community Resources, Outpatient Counseling Discharge Disposition: HOME SELF-CARE
== END 2021-01-05 16:10 | disposition home or self-care (01) | DRG 897 ==
LOC: EC 10:15 → 1SOBS 14:55 → 6NMEDSUR 15:42 → 1SOBS 01-03 07:55 → 3SCARD 01-03 17:18 → OBSVTOIN 01-04 08:29
PROVIDERS: ADMIT Internal Medicine; ATTEND Internal Medicine
DX: F10.229 Alcohol dependence with intoxication, unspecified (principal); D61.818 Other pancytopenia; F14.20 Cocaine dependence, uncomplicated; E83.42 Hypomagnesemia; F17.200 Nicotine dependence, unspecified, uncomplicated; K21.9 Gastro-esophageal reflux disease without esophagitis; M41.9 Scoliosis, unspecified; Y90.8 Blood alcohol level of 240 mg/100 ml or more; H50.9 Unspecified strabismus; Z82.5 Family history of asthma and other chronic lower respiratory diseases; Z79.899 Other long term (current) drug therapy; J44.9 Chronic obstructive pulmonary disease, unspecified; R56.9 Unspecified convulsions; F41.9 Anxiety disorder, unspecified; F32.9 Major depressive disorder, single episode, unspecified
CPT/HCPCS: 36415; 71046; 80048; 80053; 80320; 82607; 83735; 85025; 93005; 96361; 96365; 96366; 96372; 96375; 96376; 99285

== ENCOUNTER 2021-01-25 12:39 | Observation (INO) | payer OTHER ==
--- NOTE | 2021-01-25 12:53 | ED ---
General Adult HPI - General Chief complaint: Alcohol Stated complaint: ETOH Time Seen by Provider: 01/25/21 12:45 Source: patient, RN notes reviewed, old records reviewed Mode of arrival: EMS Limitations: no limitations - History of Present Illness Initial comments: This a 40-year-old male presents emergency department because his friends called because he was so intoxicated. Patient himself has no complaints he did tell EMS would like to go to [place]. Patient did state he fell at some point but doesn't remember one and did hit his head. Patient denies any other injury. Patient has no complaints at this time other than hitting his head he denies headache he denies loss of consciousness. Patient denies any drug use. Patient is severely intoxicated so he is a very poor historian. - Related Data Home Medications Medication Instructions Recorded Confirmed Buprenorphine HCl/Naloxone HCl 1 film SL BID PRN 03/06/20 01/25/21 [Suboxone 8 mg-2 mg Sl Film] Omeprazole 20 mg PO DAILY 09/13/20 01/25/21 Multivitamins, Thera [Multivitamin 1 tab PO DAILY 01/25/21 01/25/21 (formulary)] busPIRone HCL 15 mg PO BID PRN 01/25/21 01/25/21 chlordiazePOXIDE HCl 25 mg PO BID PRN 01/25/21 01/25/21 [chlordiazePOXIDE HCL] traZODone HCL 300 mg PO HS 01/25/21 01/25/21 Previous Rx's Medication Instructions Recorded DULoxetine HCL [Cymbalta] 60 mg PO DAILY 30 Days capsule. 08/31/20 Albuterol Sulfate [Proair Hfa] 2 puff INHALATION RT-QID PRN 30 09/15/20 Days #1 inhaler Folic Acid 1 mg PO DAILY #30 tab 01/05/21 Allergies Allergy/AdvReac Type Severity Reaction Status Date / Time No Known Allergies Allergy Verified 01/25/21 13:08 Review of Systems ROS Statement: Those systems with pertinent positive or pertinent negative responses have been documented in the HPI. ROS Other: All systems not noted in ROS Statement are negative. Past Medical History Past Medical History: COPD, GERD/Reflux, Seizure Disorder Additional Past Medical History / Comment(s): Alcoholism , pt has scoliosis as a child History of Any Multi-Drug Resistant Organisms: None Reported Past Surgical History: No Surgical Hx Reported Additional Past Surgical History / Comment(s): Strabismus surgery as a child- Left eye surgery. blind in left eye Past Anesthesia/Blood Transfusion Reactions: No Reported Reaction Past Psychological History: Anxiety, Bipolar, Depression Smoking Status: Current every day smoker Past Alcohol Use History: Abuse, Daily, Heavy Past Drug Use History: None Reported - Past Family History Father Family Medical History: COPD Additional Family Medical History / Comment(s): Father is alive in his 50s with history of COPD. Sister(s) Additional Family Medical History / Comment(s): He has 5 sisters and one has drug abuse issues. Patient does not have any brothers. He has one 5-year-old daughter. Mother History Unknown: Yes Additional Family Medical History / Comment(s): Mother is alive in her 50s with no major medical problems. General Exam - General Exam Comments Initial Comments: GENERAL: Patient is well-developed and well-nourished. Patient is nontoxic and well- hydrated and is in mild distress. ENT: Neck is soft and supple. No significant lymphadenopathy is noted. Oropharynx is clear. Moist mucous membranes. Neck has full range of motion without eliciting any pain. EYES: The sclera were anicteric and conjunctiva were pink and moist. Extraocular movements were intact and pupils were equal round and reactive to light. Eyelids were unremarkable. PULMONARY: Unlabored respirations. Good breath sounds bilaterally. No audible rales rhonchi or wheezing was noted. CARDIOVASCULAR: There is a regular rate and rhythm without any murmurs gallops or rubs. ABDOMEN: Soft and nontender with normal bowel sounds. SKIN: Skin is clear with no lesions or rashes and otherwise unremarkable. NEUROLOGIC: Patient is alert and oriented 2. Cranial nerves II through XII are grossly intact. Motor and sensory are also intact. Normal speech, volume and content. Symmetrical smile. MUSCULOSKELETAL: Normal extremities with adequate strength and full range of motion. No lower extremity swelling or edema. No calf tenderness. LYMPHATICS: No significant lymphadenopathy is noted PSYCHIATRIC: Unable to do so because it is so severe intoxication Limitations: no limitations Course Vital Signs 01/25/21 12:47 Temperature 98.4 F Pulse Rate 83 Respiratory 16 Rate Blood Pressure 119/81 O2 Sat by Pulse 95 Oximetry Medical Decision Making - Medical Decision Making CT of the brain and C-spine showed no acute abnormality. Patient's alcohol is 466 eyes spoke with because 90 agreed to admit the patient and the patient remaining orders. EKG shows normal sinus rhythm at 86 bpm NJ interval 256 QRS is 116 QT interval is 400 QTC is 470. Patient's EKG shows no ST segment elevation or depression. - Lab Data Result diagrams: 01/25/21 13:01 Lab Results 01/25/21 01/25/21 Range/Units 13:01 13:01 WBC 3.1 L (3.8-10.6) k/uL RBC 4.55 (4.30-5.90) m/uL Hgb 13.6 (13.0-17.5) gm/dL Hct 40.6 (39.0-53.0) % MCV 89.3 (80.0-100.0) fL MCH 29.8 (25.0-35.0) pg MCHC 33.4 (31.0-37.0) g/dL RDW 14.4 (11.5-15.5) % Plt Count 170 (150-450) k/uL MPV 7.8 Magnesium 1.3 L (1.6-2.3) mg/dL Serum Alcohol 466 H* mg/dL Disposition Clinical Impression: Alcohol intoxication Disposition: ADMITTED IP TO THIS HOSP Referrals: Yusef Hemphill MD [Primary Care Provider] - 1-2 days Time of Disposition: 13:43
[2021-01-25] MEDS ORDERED: SODIUM CHLORIDE 0.9% 500 ML 500 ML IV ONE (12:57)
[2021-01-25] MEDS ORDERED: SODIUM CHLORIDE 0.9% 1,000 ML IV ONE ×2 (12:57→13:44)
[2021-01-25 13:11] LABS: Basophils % (A) 1 %; Eosinophils # (A) 0.2 k/uL (0-0.7); Eosinophils % (A) 5 %; HCT 40.6 % (39.0-53.0); HGB 13.6 gm/dL (13.0-17.5); Lymphocytes # (A) 1.8 k/uL (1.0-4.8); Lymphocytes % (A) 57 %; MCH 29.8 pg (25.0-35.0); MCHC 33.4 g/dL (31.0-37.0); MCV 89.3 fL (80.0-100.0); Mean Platelet Volume 7.8; Monocytes # (A) 0.2 k/uL (0-1.0); Monocytes % (A) 7 %; Neutrophils # (A) 0.8 k/uL (1.3-7.7); Neutrophils % (A) 26 %; Platelet Count 170 k/uL (150-450); RBC 4.55 m/uL (4.30-5.90); RDW 14.4 % (11.5-15.5); WBC 3.1 k/uL (3.8-10.6)
[2021-01-25] MEDS ORDERED: SODIUM CHLORIDE 0.9% 1,000 ML with MVI, ADULT NO.4 WITH VIT K 10 ML, THIAMINE 100 MG, F... IV ONE ×4 (13:15)
[2021-01-25 13:25] LABS: Magnesium 1.3 mg/dL (1.6-2.3)
--- NOTE | 2021-01-25 13:42 | CT ---
EXAMINATION TYPE: CT brain cspine wo con DATE OF EXAM: 01/25/2021 COMPARISON: CT 10/03/2020 HISTORY: ETOH, trauma CT DLP: 1295.4 mGycm Automated exposure control for dose reduction was used. TECHNIQUE: CT scan of the head and cervical spine are performed without contrast. FINDINGS: There is no acute intracranial hemorrhage, mass effect, or midline shift identified. The ventricles and sulci are within normal limits in size. The globes are intact and the visualized sin uses are clear. Cervical spine is visualized in its entirety from C1 through upper thoracic levels and demonstrates s atisfactory alignment without evidence of acute fracture or dislocation. Prevertebral soft tissue ap pears within normal limits. The C1-C2 articulation is unremarkable. There is multilevel spondylosis . Multilevel foraminal encroachment is present. Apical paraseptal emphysematous changes are present. IMPRESSION: 1. There is no acute fracture or dislocation evident in the cervical spine. 2. No acute intracranial hemorrhage, mass effect, or midline shift is seen.
[2021-01-25] MEDS ORDERED: LORazepam 2 MG/ML INJ IV PRN (13:45)
[2021-01-25] MEDS ORDERED: THIAMINE 100 MG/ML 2 ML VIAL IM STA (13:45)
[2021-01-25] MEDS ORDERED: MAGNESIUM SULFATE-D5W PMX 1 GM in DEXTROSE/WATER 1 100ML.BAG IVPB SCH (14:00)
--- NOTE | 2021-01-25 15:01 | P.HPIM ---
History of Present Illness 40-year-old male was brought in by friends as patient was suspected to have all call withdraws. When I evaluated the patient did not have alcohol levels available at the time and patient is barely able to provide any history, when q uestioned that about hallucinations patient said he was having hallucinations patient is very slow to answer appear to be quite a bit drowsy and when questioned about diplopia patient said he does see double and patient had a disconjugate gaze. At the time of my believe was patient may have Wernicke's encephalopathy, because of his overall clinical condition was unable to get him up and walk to check for any ataxia and other symptoms of Wernicke's. Patient alcohol level came back is around 400 and do not have any CMP available at this time magnesium level is low at 1.3. Magnesium will be replaced. Patient states he wants to go to [place]. Patient had a head and cervical spine CT both of which are negative for any fractures or intracranial hemorrhage, patient was also complaining of mild epigastric abdominal pain REVIEW OF SYSTEMS: Except those mentioned above rest of the review of systems is either unable to obtain negative. PHYSICAL EXAMINATION: GENERAL: The patient is drowsy unable to provide much of the history, not in any acute distress. Well developed, well nourished. HEENT: Pupils are round and equally reacting to light. EOMI. No scleral icterus. No conjunctival pallor. Normocephalic, atraumatic. No pharyngeal erythema. No thyromegaly. CARDIOVASCULAR: S1 and S2 present. No murmurs, rubs, or gallops. PULMONARY: Chest is clear to auscultation, no wheezing or crackles. ABDOMEN: Soft, nontender, nondistended, normoactive bowel sounds. No palpable organomegaly. MUSCULOSKELETAL: No joint swelling or deformity. EXTREMITIES: No cyanosis, clubbing, or pedal edema. NEUROLOGICAL: Unable to assess patient does have disconjugate gaze can be secondary to alcohol intoxication SKIN: No rashes. Assessment and plan -Acute alcoholic intoxication: Patient was monitored continue with IV fluids, cannot rule out Wernicke's encephalopathy because of which I'll continue with high-dose thiamine today 200 mg twice a day, once patient is more sober will reassess for Wernicke's. -Alcohol withdrawal: Patient is expected to have all call withdrawal patient will be started on Ativan CIWA protocol, patient admits to drinking 1 pint of hard liquor every day -Possibility of alcoholic hepatitis although did not have any liver enzymes available CMP will be obtained -Hypomagnesemia magnesium replaced -Nicotine abuse: Counseling was provided -Alcoholic gastritis: Patient will be started on Protonix -Depression -History of opiate abuse-DVT prophylaxis: Lovenox Past Medical History Past Medical History: COPD, GERD/Reflux, Seizure Disorder Additional Past Medical History / Comment(s): Alcoholism , pt has scoliosis as a child History of Any Multi-Drug Resistant Organisms: None Reported Past Surgical History: No Surgical Hx Reported Additional Past Surgical History / Comment(s): Strabismus surgery as a child- Left eye surgery. blind in left eye Past Anesthesia/Blood Transfusion Reactions: No Reported Reaction Past Psychological History: Anxiety, Bipolar, Depression Smoking Status: Current every day smoker Past Alcohol Use History: Abuse, Daily, Heavy Past Drug Use History: None Reported - Past Family History Father Family Medical History: COPD Additional Family Medical History / Comment(s): Father is alive in his 50s with history of COPD. Sister(s) Additional Family Medical History / Comment(s): He has 5 sisters and one has drug abuse issues. Patient does not have any brothers. He has one 5-year-old daughter. Mother History Unknown: Yes Additional Family Medical History / Comment(s): Mother is alive in her 50s with no major medical problems. Medications and Allergies Home Medications Medication Instructions Recorded Confirmed Type Buprenorphine HCl/Naloxone HCl 1 film SL BID PRN 03/06/20 01/25/21 History [Suboxone 8 mg-2 mg Sl Film] DULoxetine HCL [Cymbalta] 60 mg PO DAILY 30 Days capsule. 08/31/20 01/25/21 Rx Omeprazole 20 mg PO DAILY 09/13/20 01/25/21 History Albuterol Sulfate [Proair Hfa] 2 puff INHALATION RT-QID PRN 30 09/15/20 01/25/21 Rx Days #1 inhaler Folic Acid 1 mg PO DAILY #30 tab 01/05/21 01/25/21 Rx Multivitamins, Thera [Multivitamin 1 tab PO DAILY 01/25/21 01/25/21 History (formulary)] busPIRone HCL 15 mg PO BID PRN 01/25/21 01/25/21 History chlordiazePOXIDE HCl 25 mg PO BID PRN 01/25/21 01/25/21 History [chlordiazePOXIDE HCL] traZODone HCL 300 mg PO HS 01/25/21 01/25/21 History Allergies Allergy/AdvReac Type Severity Reaction Status Date / Time No Known Allergies Allergy Verified 01/25/21 13:08 Physical Exam Vitals: Vital Signs Temp Pulse Resp BP Pulse Ox 01/25/21 12:47 98.4 F 83 16 119/81 95 Intake and Output 01/25/21 01/25/21 01/25/21 06:59 14:59 22:59 Other: Weight 61.235 kg Results CBC & Chem 7: 01/25/21 13:01 Labs: Abnormal Lab Results - Last 24 Hours (Table) 01/25/21 01/25/21 Range/Units 13:01 13:01 WBC 3.1 L (3.8-10.6) k/uL Neutrophils # 0.8 L (1.3-7.7) k/uL Magnesium 1.3 L (1.6-2.3) mg/dL Serum Alcohol 466 H* mg/dL
[2021-01-25] MEDS: MAGNESIUM SULFATE-D5W PMX 1 GM in DEXTROSE/WATER 1 100ML.BAG IVPB SCH ×3 (15:04→16:57)
[2021-01-25 15:07] LABS: ALT 34 U/L (4-49); AST 70 U/L (17-59); African American GFR (CKD) >90 (>60 ml/min/1.73 sqM); Albumin 4.2 g/dL (3.5-5.0); Alkaline Phosphatase 55 U/L (38-126); Anion Gap 14 mmol/L; Blood Urea Nitrogen 10 mg/dL (9-20); Calcium 8.9 mg/dL (8.4-10.2); Carbon Dioxide 27 mmol/L (22-30); Chloride 105 mmol/L (98-107); Glucose 95 mg/dL (74-99); Non-African American GFR(CKD) >90 (>60 ml/min/1.73 sqM); Potassium 3.9 mmol/L (3.5-5.1); Sodium 146 mmol/L (137-145); Total Bilirubin 0.2 mg/dL (0.2-1.3); Total Protein 7.4 g/dL (6.3-8.2)
[2021-01-25] MEDS: PANTOPRAZOLE 40 MG/10 ML VIAL IVP SCH (15:57)
[2021-01-25] MEDS ORDERED: THIAMINE 100 MG TAB PO SCH (17:30)
[2021-01-25] MEDS ORDERED: ONDANSETRON ODT 4 MG TAB PO STA (18:13)
[2021-01-25] MEDS ORDERED: NICOTINE 21MG/24HR PATCH TRANSDERM STA (18:14)
[2021-01-25] MEDS: LORazepam 2 MG/ML INJ IV PRN ×2 (20:29→21:31)
[2021-01-26] MEDS ORDERED: LORazepam 2 MG/ML INJ ONE (00:36)
[2021-01-26] MEDS: THIAMINE 200 MG in SODIUM CHLORIDE 0.9% 100 ML IVPB SCH ×3 (03:01→20:46)
[2021-01-26] MEDS: LORazepam 2 MG/ML INJ IV PRN ×5 (03:48→20:45)
[2021-01-26] MEDS: ENOXAPARIN 40 MG/0.4 ML SYRINGE SQ SCH ×2 (08:37→08:39)
[2021-01-26] MEDS: PANTOPRAZOLE 40 MG/10 ML VIAL IVP SCH (08:37)
[2021-01-26 10:01] LABS: Basophils % (A) 1 %; Eosinophils # (A) 0.1 k/uL (0-0.7); Eosinophils % (A) 5 %; HCT 36.9 % (39.0-53.0); HGB 11.8 gm/dL (13.0-17.5); Lymphocytes # (A) 1.6 k/uL (1.0-4.8); Lymphocytes % (A) 57 %; MCHC 31.9 g/dL (31.0-37.0); MCV 90.9 fL (80.0-100.0); Mean Platelet Volume 8.8; Monocytes # (A) 0.1 k/uL (0-1.0); Monocytes % (A) 4 %; Neutrophils # (A) 0.8 k/uL (1.3-7.7); Neutrophils % (A) 31 %; Platelet Count 115 k/uL (150-450); RBC 4.06 m/uL (4.30-5.90); RDW 14.2 % (11.5-15.5); WBC 2.7 k/uL (3.8-10.6)
[2021-01-26 10:12] LABS: African American GFR (CKD) >90 (>60 ml/min/1.73 sqM); Anion Gap 8 mmol/L; Blood Urea Nitrogen 11 mg/dL (9-20); Carbon Dioxide 27 mmol/L (22-30); Chloride 103 mmol/L (98-107); Glucose 114 mg/dL (74-99); Magnesium 1.3 mg/dL (1.6-2.3); Non-African American GFR(CKD) >90 (>60 ml/min/1.73 sqM); Potassium 3.6 mmol/L (3.5-5.1); Sodium 138 mmol/L (137-145)
[2021-01-26] MEDS ORDERED: Magnesium Replacement Protocol 1 EACH MISC MISCELLANE PRN (11:16)
[2021-01-26] MEDS ORDERED: ALBUTEROL NEBULIZED 2.5 MG/3 ML INHALATION PRN (15:25)
--- NOTE | 2021-01-26 15:25 | P.PN ---
Subjective Progress Note Date: 01/26/21 40-year-old male was brought in by friends as patient was suspected to have all call withdraws. When I evaluated the patient did not have alcohol levels available at the time and patient is barely able to provide any history, when questioned that about hallucinations patient said he was having hallucinations patient is very slow to answer appear to be quite a bit drowsy and when questioned about diplopia patient said he does see double and patient had a disconjugate gaze. At the time of my believe was patient may have Wernicke's encephalopathy, because of his overall clinical condition was unable to get him up and walk to check for any ataxia and other symptoms of Wernicke's. Patient alcohol level came back is around 400 and do not have any CMP available at this time magnesium level is low at 1.3. Magnesium will be replaced. Patient states he wants to go to [facility]. Patient had a head and cervical spine CT both of which are negative for any fractures or intracranial hemorrhage, patient was also complaining of mild epigastric abdominal pain 01/26/2021 Patient is evaluated today in the emergency room, still holding for a [facility] bed. Patient is alert and oriented 3 at the time of my examination. Patient states that he is legally blind. He is reporting hallucinations, he states that even when his eyes are closed he is seeing people around him and he knows that they're not there. He is also reporting some mild abdominal pain, tremors, nausea, headache. Patient is being monitored for acute alcohol withdrawal. Patient states that he does have a history of seizures, he is unsure what kind, states that they have been going on for a long time. Patient states that he was taking Xanax, Klonopin, Librium for the seizures in the past. Suspect alcohol withdrawal seizure. Patient states that he does not feel like he can get up out of bed at this time, he feels very weak. Patient is cooperative the time of my examination, denies chest pain, cough, shortness of breath. Patient will be monitored overnight, PT OT evaluation. Magnesium level I.3 today, repeat per pr otocol. Recheck in the morning. Covid swab is negative at this time. Patient is requesting for transfer to [facility] on discharge. Hemoglobin today 11.8, no signs of bleed, repeat in the morning. REVIEW OF SYSTEMS: CONSTITUTIONAL: No fever, no malaise, no fatigue. HEENT: No recent visual problems or hearing problems. Denied any sore throat. States that he is legally blind CARDIOVASCULAR: No chest pain, orthopnea, PND, no palpitations, no syncope. PULMONARY: Reports nonproductive cough, exertional dyspnea GASTROINTESTINAL: Denies vomiting, reports nausea, mild abdominal pain NEUROLOGICAL: Reports headache, hallucinations, tremors GENITOURINARY: Denies any burning micturition, frequency, or urgency. MUSCULOSKELETAL/RHEUMATOLOGICAL: Denies any joint pain, swelling, or any muscle pain. PHYSICAL EXAMINATION: GENERAL: The patient is drowsy unable to provide much of the history, not in any acute distress. Well developed, well nourished. HEENT: Pupils are round and equally reacting to light. EOMI. No scleral icterus. No conjunctival pallor. Normocephalic, atraumatic. No pharyngeal erythema. No thyromegaly. CARDIOVASCULAR: S1 and S2 present. No murmurs, rubs, or gallops. PULMONARY: Chest is clear to auscultation, no wheezing or crackles. ABDOMEN: Soft, nontender, nondistended, normoactive bowel sounds. No palpable organomegaly. MUSCULOSKELETAL: No joint swelling or deformity. EXTREMITIES: No cyanosis, clubbing, or pedal edema. NEUROLOGICAL: Unable to assess patient does have disconjugate gaze can be secondary to alcohol intoxication SKIN: No rashes. Assessment and plan -Acute alcoholic intoxication: Patient was monitored continue with IV fluids, cannot rule out Wernicke's encephalopathy because of which I'll continue with high-dose thiamine today 200 mg twice a day, once patient is more sober will reassess for Wernicke's. Patient refused assessment today did not wish to get out of bed. -Alcohol withdrawal: Patient is expected to have all call withdrawal patient will be started on Ativan CIWA protocol, patient admits to drinking 1 pint of hard liquor every day -Possibility of alcoholic hepatitis, monitor liver trans-, AST elevated at 70, L2 within normal limits at 34 -Hypomagnesemia magnesium replaced, 1.3 again today recheck in the morning -Nicotine abuse: Counseling was provided given a nicotine patch History of COPD, not in acute exacerbation, continue on inhalers -Alcoholic gastritis: Patient will be started on Protonix -Depression continue on Cymbalta -History of opiate abuse- DVT prophylaxis: Lovenox Patient will be monitored overnight for acute alcohol withdrawal, and PT OT evaluation. Patient will continue on thiamine, CIWA protocol, all other appropriate home medications. Patient will be resumed on his Cymbalta, not re commended to abruptly stop. Patient is requesting his Suboxone at this time, states that he has out and has not had an appointment with this provider. Objective - Vital Signs Vital signs: Vital Signs Temp 98.6 F 01/25/21 18:11 Pulse 82 01/26/21 06:35 Resp 20 01/26/21 06:35 BP 106/78 01/26/21 06:35 Pulse Ox 95 01/26/21 06:35 Intake & Output 01/25/21 01/26/21 01/26/21 18:59 06:59 18:59 Weight 61.235 kg - Labs CBC & Chem 7: 01/26/21 09:45 01/26/21 09:45 Labs: Abnormal Lab Results - Last 24 Hours (Table) 01/25/21 01/25/21 01/25/21 Range/Units 13:01 13:01 14:49 WBC 3.1 L (3.8-10.6) k/uL RBC (4.30-5.90) m/uL Hgb (13.0-17.5) gm/dL Hct (39.0-53.0) % Plt Count (150-450) k/uL Neutrophils # 0.8 L (1.3-7.7) k/uL Sodium 146 H (137-145) mmol/L Creatinine 0.49 L (0.66-1.25) mg/dL Glucose (74-99) mg/dL Magnesium 1.3 L (1.6-2.3) mg/dL AST 70 H (17-59) U/L Serum Alcohol 466 H* mg/dL 01/26/21 01/26/21 Range/Units 09:45 09:45 WBC 2.7 L (3.8-10.6) k/uL RBC 4.06 L (4.30-5.90) m/uL Hgb 11.8 L (13.0-17.5) gm/dL Hct 36.9 L (39.0-53.0) % Plt Count 115 L (150-450) k/uL Neutrophils # 0.8 L (1.3-7.7) k/uL Sodium (137-145) mmol/L Creatinine 0.57 L (0.66-1.25) mg/dL Glucose 114 H (74-99) mg/dL Magnesium 1.3 L (1.6-2.3) mg/dL AST (17-59) U/L Serum Alcohol mg/dL
[2021-01-26] MEDS: NICOTINE 21MG/24HR PATCH TRANSDERM SCH (15:50)
[2021-01-26] MEDS: MAGNESIUM SULFATE-D5W PMX 1 GM in DEXTROSE/WATER 1 100ML.BAG IVPB SCH ×2 (15:51→15:52)
[2021-01-27] MEDS: LORazepam 2 MG/ML INJ IV PRN (01:58)
[2021-01-27 07:45] VITALS: BP 110/75; PULSE 76; RESP 18; TEMP 98.4
[2021-01-27] MEDS ORDERED: DULoxetine HCL 60 MG CAPSULE.DR PO SCH (09:00)
[2021-01-27] MEDS: PANTOPRAZOLE 40 MG/10 ML VIAL IVP SCH ×2 (09:02→09:12)
[2021-01-27] MEDS: ENOXAPARIN 40 MG/0.4 ML SYRINGE SQ SCH (09:02)
[2021-01-27] MEDS: NICOTINE 21MG/24HR PATCH TRANSDERM SCH (09:02)
[2021-01-27] MEDS ORDERED: Magnesium Replacement Protocol 1 EACH MISC MISCELLANE PRN (09:21)
[2021-01-27] MEDS ORDERED: CHLORDIAZEPOXIDE HCL 25 MG PO PRN (09:23)
[2021-01-27] MEDS ORDERED: busPIRone HCl 5 MG TAB PO PRN (09:23)
[2021-01-27] MEDS: MAGNESIUM SULFATE-D5W PMX 1 GM in DEXTROSE/WATER 1 100ML.BAG IVPB SCH ×3 (09:45→12:16)
[2021-01-27 10:04] LABS: African American GFR (CKD) >90 (>60 ml/min/1.73 sqM); Anion Gap 9 mmol/L; Blood Urea Nitrogen 10 mg/dL (9-20); Calcium 9.5 mg/dL (8.4-10.2); Carbon Dioxide 26 mmol/L (22-30); Chloride 103 mmol/L (98-107); Glucose 95 mg/dL (74-99); Non-African American GFR(CKD) >90 (>60 ml/min/1.73 sqM); Potassium 3.6 mmol/L (3.5-5.1); Sodium 138 mmol/L (137-145)
[2021-01-27] MEDS ORDERED: Potassium Replacement Protocol 1 EACH MISC MISCELLANE PRN (10:14)
[2021-01-27] MEDS: THIAMINE 200 MG in SODIUM CHLORIDE 0.9% 100 ML IVPB SCH (10:27)
[2021-01-27] MEDS ORDERED: POTASSIUM CHLORIDE ER 20 MEQ TAB.ER PO SCH (11:00)
--- NOTE | 2021-01-27 14:54 | P.DS ---
Providers Date of admission: 01/25/21 13:44 Attending physician: Isatu Smith Primary care physician: Kanchan Alvarez [facility] Course: Final diagnosis -Acute alcoholic intoxication: It is felt the patient did not have Wernicke's encephalopathy -Alcohol withdrawal: Patient is expected to have all call withdrawal patient will be started on Ativan CIWA protocol, patient admits to drinking 1 pint of hard liquor every day -Possibility of alcoholic hepatitis, monitor liver trans-, AST elevated at 70, L2 within normal limits at 34 -Hypomagnesemia magnesium replaced, 1.3 again today recheck in the morning -Nicotine abuse: Counseling was provided given a nicotine patch History of COPD, not in acute exacerbation, continue on inhalers -Alcoholic gastritis: Patient will be started on Protonix -Depression continue on Cymbalta -History of opiate abuse-on Suboxone DVT prophylaxis: Lovenox Discharge disposition Patient is discharged to [facility]. Patient received IV magnesium, oral potassium supplementation today. Patient can recheck these labs in 3 days. Patient is also discharged on oral supplementation. Prognosis guarded, patient is counseled extensively on alcohol cessation, smoking cessation. Hospital course This is a 40-year-old male who was brought by friends to the EMS as patient was instructed to acute alcohol withdrawals. Patient was hallucinating and barely able to provide any medical history at the time of initial examination. Patient appeared very slow to answer and was drowsy, patient reported that he was seeing double and had decreased disconjugate gaze. It was felt the patient could possibly have Wernicke's encephalopathy, and was started on IV thiamine replacement. Alcohol level was around 400, magnesium low at 1.3, replaced per protocol. Patient states that he has a desire to go to [facility] for rehab. CT of the head and cervical spine were negative for any acute fractures or intracranial hemorrhage area patient was also complaining of some epigastric abdominal pain, suspect alcoholic gastritis, patient was started on IV Protonix, patient takes omeprazole home. Patient was admitted to observation, patient does state that he is legally blind. On the second day patient was alert and oriented 3, he was still reporting some hallucinations however denied any dizziness, lightheadedness. Patient does report some tremors nausea headache and abdominal pain as well. Patient is to monitor for an acute STROKE, he required 3 doses of IV Ativan. Patient says he does take medications for alcohol withdrawal. Patient did not lying in bed today, patient will monitor for overnight and possible discharge on 916 after PT OT evaluation. Continue to replace magnesium and potassium per protocol. Patient's level is magnesium 1.2 and potassium 3.4 on the day of discharge. Patient received IV supplementation, and was discharged home on oral medications. Patient is requesting a prescription for Suboxone, Librium on discharge. It was a splint to patient that we do not have a Suboxone license. And he will be receiving Librium or Ativan from [facility] for alcohol withdrawal and cessation. 01/27/2021 At the time of my examination patient is oriented 3. He is denying headache, nausea, dizziness. Patient denies any nausea or vomiting. Patient denies any focal neurological deficits. Patient does have some mild tremor when his arms are extended. Patient has not had any Ativan since this morning. It was felt the patient is medically stable for discharge at this time too [facility] facility. Vital signs are stable temp 98.4, heart rate sinus rhythm in the 70s, BP 110/75, 94% on room air. Patient is agreeing to discharge to rehab and reports a desire for alcohol cessation at this time. Please see medication reconciliation for list of current medications. Thank you for allowing us to participate in the care of this patient. Patient Condition at Discharge: Fair Plan - Discharge Summary Discharge Rx Participant: Yes New Discharge Prescriptions: New Magnesium Oxide [Mag-Ox] 400 mg PO TID #42 tablet Thiamine HCl [Vitamin B-1] 100 mg PO DAILY #30 tablet No Action Buprenorphine HCl/Naloxone HCl [Suboxone 8 mg-2 mg Sl Film] 1 film SL BID PRN PRN Reason: cravings Omeprazole 20 mg PO DAILY busPIRone HCL 15 mg PO BID PRN PRN Reason: Anxiety DULoxetine HCL [Cymbalta] 60 mg PO DAILY 30 Days amber. Albuterol Sulfate [Proair Hfa] 2 puff INHALATION RT-QID PRN 30 Days #1 inhaler PRN Reason: Shortness Of Breath Folic Acid 1 mg PO DAILY #30 tab chlordiazePOXIDE HCl [chlordiazePOXIDE HCL] 25 mg PO BID PRN PRN Reason: Anxiety Multivitamins, Thera [Multivitamin (formulary)] 1 tab PO DAILY traZODone HCL 300 mg PO HS Discharge Medication List Buprenorphine HCl/Naloxone HCl [Suboxone 8 mg-2 mg Sl Film] 1 film SL BID PRN 03/06/20 [History] DULoxetine HCL [Cymbalta] 60 mg PO DAILY 30 Days amber. 08/31/20 [Rx] Omeprazole 20 mg PO DAILY 09/13/20 [History] Albuterol Sulfate [Proair Hfa] 2 puff INHALATION RT-QID PRN 30 Days #1 inhaler 09/15/20 [Rx] Folic Acid 1 mg PO DAILY #30 tab 01/05/21 [Rx] Multivitamins, Thera [Multivitamin (formulary)] 1 tab PO DAILY 01/25/21 [History] busPIRone HCL 15 mg PO BID PRN 01/25/21 [History] chlordiazePOXIDE HCl [chlordiazePOXIDE HCL] 25 mg PO BID PRN 01/25/21 [History] traZODone HCL 300 mg PO HS 01/25/21 [History] Magnesium Oxide [Mag-Ox] 400 mg PO TID #42 tablet 01/27/21 [Rx] Thiamine HCl [Vitamin B-1] 100 mg PO DAILY #30 tablet 01/27/21 [Rx] Follow up Appointment(s)/Referral(s): Yusef Hemphill MD [Primary Care Provider] - 02/01/21 11:10 am Ambulatory/Diagnostic Orders: Basic Metabolic Panel [LAB.AMB] Time Frame: 3 Days, Location: None Selected Patient Instructions/Handouts: Abuse of Alcohol (DC) Activity/Diet/Wound Care/Special Instructions: Patient will be discharged to [facility] Patient cannot enter [facility] with any controlled substances on his person's [facility] can administer Ativan and Librium as needed for detox and abstinence from ETOH Discharge Disposition: OTHER INSTITUTION NOT DEFINED
== END 2021-01-27 13:22 | disposition other institution (70) ==
LOC: EC 12:39 → INTOOBSV 13:44 → 4SSUR 13:44 → UNDODISIN 01-27 13:22
PROVIDERS: ADMIT Internal Medicine; ATTEND Internal Medicine
PROC: HZ2ZZZZ Detoxification Services for Substance Abuse Treatment (ICD-10-PCS; principal; 2021-01-25)
DX: F10.239 Alcohol dependence with withdrawal, unspecified (principal); F10.229 Alcohol dependence with intoxication, unspecified; E83.42 Hypomagnesemia; K29.20 Alcoholic gastritis without bleeding; G40.909 Epilepsy, unspecified, not intractable, without status epilepticus; M47.812 Spondylosis without myelopathy or radiculopathy, cervical region; F11.10 Opioid abuse, uncomplicated; M41.9 Scoliosis, unspecified; H54.62 Unqualified visual loss, left eye, normal vision right eye; K21.9 Gastro-esophageal reflux disease without esophagitis; H53.2 Diplopia; F41.9 Anxiety disorder, unspecified; F31.9 Bipolar disorder, unspecified; J44.9 Chronic obstructive pulmonary disease, unspecified; Y90.8 Blood alcohol level of 240 mg/100 ml or more; F17.200 Nicotine dependence, unspecified, uncomplicated; Z20.822 Contact with and (suspected) exposure to COVID-19; Z79.899 Other long term (current) drug therapy; Z98.890 Other specified postprocedural states; Z71.41 Alcohol abuse counseling and surveillance of alcoholic; Z71.6 Tobacco abuse counseling; Z82.5 Family history of asthma and other chronic lower respiratory diseases; Z81.4 Family history of other substance abuse and dependence
CPT/HCPCS: 96376 ×4; 96366; 96367; 96361; 96365; 96372; 96375; 99285 ×2; 36415; 93005; 97161; 97165; 80053; 80048 ×2; 83735 ×3; 85025 ×2; 87635; 72125; 70450; G0378 ×3; G0480; S4990 ×2; J2060 ×3; J3411 ×3; J3475 ×2; C9113 ×2; 80320

== ENCOUNTER → 2021-01-31 | Outpatient (CLI) | payer OTHER ==
[2021-01-31 21:53] LABS: African American GFR (CKD) 127.7 (60.0-200.0); Anion Gap 9.9 mmol/L (4.00-12.00); BUN/Creat Ratio 26.25 Ratio (12.00-20.00); Calcium 9.6 mg/dL (8.7-10.3); Carbon Dioxide 21.1 mmol/L (21.6-31.8); Non-African American GFR(CKD) 110.2 (60.0-200.0); Potassium 3.8 mmol/L (3.5-5.5)
== END | disposition home or self-care (01) ==
LOC: LABWHC1 13:25
PROVIDERS: ATTEND Family Medicine
DX: F10.20 Alcohol dependence, uncomplicated (principal)
CPT/HCPCS: 36415; 80048

== ENCOUNTER 2021-03-23 19:11 | Emergency (ER) | payer OTHER ==
[2021-03-23 20:57] VITALS: BP 104/69; PULSE 78; RESP 15; TEMP 97.1
[2021-03-23] MEDS ORDERED: FLUORESCEIN STRIPS 1 MG STRIP BOTH EYES ONE (22:17)
[2021-03-23] MEDS ORDERED: PROPARACAINE 0.5% OPHTH DROPS 15 ML BTL BOTH EYES STA (22:27)
[2021-03-23] MEDS ORDERED: TOBRAMYCIN 0.3% OPHTH OINT 3.5 GM TUBE BOTH EYES STA (22:27)
--- NOTE | 2021-03-23 22:30 | ED ---
Eye Problem HPI - General Chief complaint: Eye Problems Stated complaint: lt eye problem Time Seen by Provider: 03/23/21 21:21 Source: patient, RN notes reviewed, old records reviewed Mode of arrival: ambulatory Limitations: no limitations - History of Present Illness Initial comments: This is a 41-year-old male to the ER today for evaluation. Patient presents today for evaluation in regards to bilateral eye pain. 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 Symptoms progressively worsened with no change in vision. Does have some blurry vision and bilateral discharge and drainage. Itchiness and pain. No other medical history takes no medications chief complaint: eye pain, eye redness -: hour(s) Onset Description: gradual Location: both eyes Place: work If Injury: none Eye Symptoms: burning, redness Severity: moderate Severity scale (1-10): 4 If Pain, Quality: burning Consistency: constant Associated Symptoms: none Treatments Prior to Arrival: none - Related Data Home Medications Medication Instructions Recorded Confirmed Buprenorphine HCl/Naloxone HCl 1 film SL BID PRN 03/06/20 01/25/21 [Suboxone 8 mg-2 mg Sl Film] Omeprazole 20 mg PO DAILY 09/13/20 01/25/21 Multivitamins, Thera [Multivitamin 1 tab PO DAILY 01/25/21 01/25/21 (formulary)] busPIRone HCL 15 mg PO BID PRN 01/25/21 01/25/21 chlordiazePOXIDE HCl 25 mg PO BID PRN 01/25/21 01/25/21 [chlordiazePOXIDE HCL] traZODone HCL 300 mg PO HS 01/25/21 01/25/21 Previous Rx's Medication Instructions Recorded DULoxetine HCL [Cymbalta] 60 mg PO DAILY 30 Days capsule. 08/31/20 Albuterol Sulfate [Proair Hfa] 2 puff INHALATION RT-QID PRN 30 09/15/20 Days #1 inhaler Folic Acid 1 mg PO DAILY #30 tab 01/05/21 Magnesium Oxide [Mag-Ox] 400 mg PO TID #42 tablet 01/27/21 Thiamine HCl [Vitamin B-1] 100 mg PO DAILY #30 tablet 01/27/21 Allergies Allergy/AdvReac Type Severity Reaction Status Date / Time No Known Allergies Allergy Verified 03/23/21 20:52 Review of Systems ROS Statement: Those systems with pertinent positive or pertinent negative responses have been documented in the HPI. ROS Other: All systems not noted in ROS Statement are negative. Past Medical History Past Medical History: COPD, GERD/Reflux, Seizure Disorder Additional Past Medical History / Comment(s): Alcoholism , pt has scoliosis as a child History of Any Multi-Drug Resistant Organisms: None Reported Past Surgical History: No Surgical Hx Reported Additional Past Surgical History / Comment(s): Strabismus surgery as a child- Left eye surgery. blind in left eye Past Anesthesia/Blood Transfusion Reactions: No Reported Reaction Past Psychological History: Anxiety, Depression Smoking Status: Current every day smoker Past Alcohol Use History: None Reported Past Drug Use History: None Reported - Past Family History Father Family Medical History: COPD Additional Family Medical History / Comment(s): Father is alive in his 50s with history of COPD. Sister(s) Additional Family Medical History / Comment(s): He has 5 sisters and one has drug abuse issues. Patient does not have any brothers. He has one 5-year-old daughter. Mother History Unknown: Yes Additional Family Medical History / Comment(s): Mother is alive in her 50s with no major medical problems. General Exam General appearance: alert, in no apparent distress Head exam: Present: atraumatic, normocephalic, normal inspection Eye exam: Present: normal appearance, PERRL, EOMI. Absent: scleral icterus, conjunctival injection, periorbital swelling Pupils: Present: other (R eye erythema and drainage and redness) ENT exam: Present: normal exam, mucous membranes moist Neck exam: Present: normal inspection. Absent: tenderness, meningismus, lymphadenopathy Respiratory exam: Present: normal lung sounds bilaterally. Absent: respiratory distress, wheezes, rales, rhonchi, stridor Cardiovascular Exam: Present: regular rate, normal rhythm, normal heart sounds. Absent: systolic murmur, diastolic murmur, rubs, gallop, clicks GI/Abdominal exam: Present: soft, normal bowel sounds. Absent: distended, tenderness, guarding, rebound, rigid Extremities exam: Present: normal inspection, full ROM, normal capillary refill. Absent: tenderness, pedal edema, joint swelling, calf tenderness Back exam: Present: normal inspection Neurological exam: Present: alert, oriented X3, CN II-XII intact Psychiatric exam: Present: normal affect, normal mood Skin exam: Present: warm, dry, intact, normal color. Absent: rash Course Vital Signs 03/23/21 20:53 Temperature 97.1 F L Pulse Rate 78 Respiratory 15 Rate Blood Pressure 104/69 O2 Sat by Pulse 99 Oximetry - Reevaluation(s) Reevaluation #1: Medical record is reviewed Patient symptoms are significantly improved here in the ER Patient informed results and questions answered Medical Decision Making - Medical Decision Making 38 female DF for evaluation of bilateral eye pain. Patient has no significant foreign body noted. Symptoms improved with anesthetic, patient will be given antibiotic eyedrops or corneal abrasion Disposition Clinical Impression: Acute eye pain, Bilateral corneal abrasions Disposition: ADMITTED IP TO THIS HOSP Condition: Good Is patient prescribed a controlled substance at d/c from ED?: No Referrals: None,Stated [Primary Care Provider] - 1-2 days
== END 2021-03-23 22:50 | disposition home or self-care (01) ==
LOC: EC 19:11
DX: S05.02XA Injury of conjunctiva and corneal abrasion without foreign body, left eye, initial encounter (principal); S05.01XA Injury of conjunctiva and corneal abrasion without foreign body, right eye, initial encounter; J44.9 Chronic obstructive pulmonary disease, unspecified; K21.9 Gastro-esophageal reflux disease without esophagitis; F17.200 Nicotine dependence, unspecified, uncomplicated; Z79.899 Other long term (current) drug therapy; W45.8XXA Other foreign body or object entering through skin, initial encounter; Y92.89 Other specified places as the place of occurrence of the external cause; Y99.0 Civilian activity done for income or pay
CPT/HCPCS: 99283

== ENCOUNTER 2021-09-23 14:51 | Observation (INO) | payer OTHER ==
[2021-09-23] MEDS ORDERED: ONDANSETRON 4 MG/2 ML VIAL IVP STA (15:16)
[2021-09-23] MEDS ORDERED: SODIUM CHLORIDE 0.9% 2,000 ML IV STA (15:17)
[2021-09-23] MEDS ORDERED: LORazepam 2 MG/ML INJ IV PRN ×2 (15:18)
[2021-09-23] MEDS ORDERED: THIAMINE 100 MG/ML 2 ML VIAL IM STA (15:18)
--- NOTE | 2021-09-23 15:44 | ED ---
General Adult HPI - General Chief complaint: Nausea/Vomiting/Diarrhea Stated complaint: ETOH Time Seen by Provider: 09/23/21 15:04 Source: patient Mode of arrival: EMS Limitations: no limitations - History of Present Illness Initial comments: Patient is a 41-year-old male with a past medical history of all use disorder who presents for evaluation of alcohol withdrawal. Patient states he has been drinking 2 pints to a fifth daily for the past week. Patient states he only drank half a beer this morning and is concerned he is withdrawing. Patient sta sly he vomited 6 times. He does admit to hand tremors. No visual auditory or auditory hallucinations. No known seizure activity however patient states he has had several withdrawal seizures before. He denies drug use. He has no other concerns. - Related Data Home Medications Medication Instructions Recorded Confirmed Buprenorphine HCl/Naloxone HCl 1 film SL BID PRN 03/06/20 01/25/21 [Suboxone 8 mg-2 mg Sl Film] Omeprazole 20 mg PO DAILY 09/13/20 01/25/21 busPIRone HCL 15 mg PO BID PRN 01/25/21 01/25/21 traZODone HCL 300 mg PO HS 01/25/21 01/25/21 Ibuprofen [Motrin] 800 mg PO BID-W/MEALS PRN 09/23/21 09/23/21 clonazePAM [KlonoPIN] 0.25 mg PO BID PRN 09/23/21 09/23/21 Previous Rx's Medication Instructions Recorded Albuterol Sulfate [Proair Hfa] 2 puff INHALATION RT-QID PRN 30 09/15/20 Days #1 inhaler Allergies Allergy/AdvReac Type Severity Reaction Status Date / Time No Known Allergies Allergy Verified 09/23/21 16:31 Review of Systems ROS Statement: Those systems with pertinent positive or pertinent negative responses have been documented in the HPI. ROS Other: All systems not noted in ROS Statement are negative. Past Medical History Past Medical History: COPD, GERD/Reflux, Seizure Disorder Additional Past Medical History / Comment(s): Alcoholism , pt has scoliosis as a child History of Any Multi-Drug Resistant Organisms: None Reported Past Surgical History: No Surgical Hx Reported Additional Past Surgical History / Comment(s): Strabismus surgery as a child- Left eye surgery. blind in left eye Past Anesthesia/Blood Transfusion Reactions: No Reported Reaction Past Psychological History: Anxiety, Depression Smoking Status: Current every day smoker Past Alcohol Use History: None Reported Past Drug Use History: None Reported - Past Family History Father Family Medical History: COPD Additional Family Medical History / Comment(s): Father is alive in his 50s with history of COPD. Sister(s) Additional Family Medical History / Comment(s): He has 5 sisters and one has drug abuse issues. Patient does not have any brothers. He has one 5-year-old daughter. Mother History Unknown: Yes Additional Family Medical History / Comment(s): Mother is alive in her 50s with no major medical problems. General Exam Limitations: no limitations General appearance: alert, lethargic Head exam: Present: atraumatic, normocephalic, normal inspection Eye exam: Present: normal appearance, PERRL, EOMI. Absent: scleral icterus, conjunctival injection, periorbital swelling ENT exam: Present: normal oropharynx, other (No tongue fasciculations) Neck exam: Present: normal inspection Respiratory exam: Present: normal lung sounds bilaterally. Absent: respiratory distress, wheezes, rales, rhonchi, stridor Cardiovascular Exam: Present: regular rate, normal rhythm, normal heart sounds. Absent: systolic murmur, diastolic murmur, rubs, gallop, clicks GI/Abdominal exam: Present: soft, normal bowel sounds. Absent: distended, tenderness, guarding, rebound, rigid Extremities exam: Present: other (Bilateral hand tremors at rest) Neurological exam: Present: alert, oriented X3, CN II-XII intact Psychiatric exam: Present: normal affect, normal mood Skin exam: Present: warm, dry, intact, normal color. Absent: rash Course Vital Signs 09/23/21 14:56 Temperature 97.9 F Pulse Rate 83 Respiratory 16 Rate Blood Pressure 111/76 O2 Sat by Pulse 96 Oximetry Medical Decision Making - Medical Decision Making This is a 41-year-old male presents for alcohol withdrawal. Thorough history and examination were performed. Last drink was this morning which was half a beer. Patient is lethargic during my exam but answers questions appropriately. Patient is endorsing nausea and vomiting. He has bilateral hand tremors at rest. No tongue fasciculations. CIWA protocol initiated. Patient given fluid bolus and Zofran. Blood alcohol level is 297. Patient is experiencing alcohol intoxication and likely wi thdrawal. Case discussed with Dr. Easley. Patient will be admitted to his service for further management. Dr. Del Toro is my attending. - Lab Data Result diagrams: 09/23/21 16:01 09/23/21 16:01 Lab Results 09/23/21 09/23/21 09/23/21 Range/Units 16:01 16:01 16:58 WBC 3.1 L (3.8-10.6) k/uL RBC 4.68 (4.30-5.90) m/uL Hgb 13.6 (13.0-17.5) gm/dL Hct 42.5 (39.0-53.0) % MCV 90.8 (80.0-100.0) fL MCH 29.0 (25.0-35.0) pg MCHC 31.9 (31.0-37.0) g/dL RDW 13.5 (11.5-15.5) % Plt Count 169 (150-450) k/uL MPV 7.7 Neutrophils % 49 % Lymphocytes % 43 % Monocytes % 4 % Eosinophils % 2 % Basophils % 1 % Neutrophils # 1.5 (1.3-7.7) k/uL Lymphocytes # 1.3 (1.0-4.8) k/uL Monocytes # 0.1 (0-1.0) k/uL Eosinophils # 0.1 (0-0.7) k/uL Basophils # 0.0 (0-0.2) k/uL Sodium 144 (137-145) mmol/L Potassium 4.1 (3.5-5.1) mmol/L Chloride 103 (98-107) mmol/L Carbon Dioxide 26 (22-30) mmol/L Anion Gap 15 mmol/L BUN 13 (9-20) mg/dL Creatinine 0.73 (0.66-1.25) mg/dL Est GFR (CKD-EPI)AfAm >90 (>60 ml/min/1.73 sqM) Est GFR (CKD-EPI)NonAf >90 (>60 ml/min/1.73 sqM) Glucose 91 (74-99) mg/dL Calcium 8.6 (8.4-10.2) mg/dL Total Bilirubin 0.5 (0.2-1.3) mg/dL AST 41 (17-59) U/L ALT 18 (4-49) U/L Alkaline Phosphatase 97 (38-126) U/L Total Protein 7.8 (6.3-8.2) g/dL Albumin 4.7 (3.5-5.0) g/dL Urine Color Yellow Urine Appearance Clear (Clear) Urine pH 6.0 (5.0-8.0) Ur Specific [place] 1.019 (1.001-1.035) Urine Protein 2+ H (Negative) Urine Glucose (UA) Negative (Negative) Urine Ketones Negative (Negative) Urine Blood Negative (Negative) Urine Nitrite Negative (Negative) Urine Bilirubin Negative (Negative) Urine Urobilinogen <2.0 (<2.0) mg/dL Ur Leukocyte Esterase Negative (Negative) Urine RBC 1 (0-5) /hpf Urine WBC 1 (0-5) /hpf Hyaline Casts 12 H (0-2) /lpf Urine Mucus Occasional H (None) /hpf Urine Opiates Screen (NotDetected) Ur Oxycodone Screen (NotDetected) Urine Methadone Screen (NotDetected) Ur Propoxyphene Screen (NotDetected) Ur Barbiturates Screen (NotDetected) U Tricyclic Antidepress (NotDetected) Ur Phencyclidine Scrn (NotDetected) Ur Amphetamines Screen (NotDetected) U Methamphetamines Scrn (NotDetected) U Benzodiazepines Scrn (NotDetected) Urine Cocaine Screen (NotDetected) U Marijuana (THC) Screen (NotDetected) Serum Alcohol 297 H* mg/dL 09/23/21 Range/Units 16:58 WBC (3.8-10.6) k/uL RBC (4.30-5.90) m/uL Hgb (13.0-17.5) gm/dL Hct (39.0-53.0) % MCV (80.0-100.0) fL MCH (25.0-35.0) pg MCHC (31.0-37.0) g/dL RDW (11.5-15.5) % Plt Count (150-450) k/uL MPV Neutrophils % % Lymphocytes % % Monocytes % % Eosinophils % % Basophils % % Neutrophils # (1.3-7.7) k/uL Lymphocytes # (1.0-4.8) k/uL Monocytes # (0-1.0) k/uL Eosinophils # (0-0.7) k/uL Basophils # (0-0.2) k/uL Sodium (137-145) mmol/L Potassium (3.5-5.1) mmol/L Chloride (98-107) mmol/L Carbon Dioxide (22-30) mmol/L Anion Gap mmol/L BUN (9-20) mg/dL Creatinine (0.66-1.25) mg/dL Est GFR (CKD-EPI)AfAm (>60 ml/min/1.73 sqM) Est GFR (CKD-EPI)NonAf (>60 ml/min/1.73 sqM) Glucose (74-99) mg/dL Calcium (8.4-10.2) mg/dL Total Bilirubin (0.2-1.3) mg/dL AST (17-59) U/L ALT (4-49) U/L Alkaline Phosphatase (38-126) U/L Total Protein (6.3-8.2) g/dL Albumin (3.5-5.0) g/dL Urine Color Urine Appearance (Clear) Urine pH (5.0-8.0) Ur Specific [place] (1.001-1.035) Urine Protein (Negative) Urine Glucose (UA) (Negative) Urine Ketones (Negative) Urine Blood (Negative) Urine Nitrite (Negative) Urine Bilirubin (Negative) Urine Urobilinogen (<2.0) mg/dL Ur Leukocyte Esterase (Negative) Urine RBC (0-5) /hpf Urine WBC (0-5) /hpf Hyaline Casts (0-2) /lpf Urine Mucus (None) /hpf Urine Opiates Screen Not Detected (NotDetected) Ur Oxycodone Screen Not Detected (NotDetected) Urine Methadone Screen Not Detected (NotDetected) Ur Propoxyphene Screen Not Detected (NotDetected) Ur Barbiturates Screen Not Detected (NotDetected) U Tricyclic Antidepress Not Detected (NotDetected) Ur Phencyclidine Scrn Not Detected (NotDetected) Ur Amphetamines Screen Not Detected (NotDetected) U Methamphetamines Scrn Not Detected (NotDetected) U Benzodiazepines Scrn Not Detected (NotDetected) Urine Cocaine Screen Not Detected (NotDetected) U Marijuana (THC) Screen Not Detected (NotDetected) Serum Alcohol mg/dL Disposition Clinical Impression: Alcohol intoxication, Alcohol withdrawal, Nausea and vomiting Disposition: ADMITTED IP TO THIS [facility] Condition: Good Referrals: Surya Easley MD [Primary Care Provider] - 1-2 days Decision Time: 17:48
[2021-09-23 16:10] LABS: Basophils % (A) 1 %; Eosinophils # (A) 0.1 k/uL (0-0.7); Eosinophils % (A) 2 %; HCT 42.5 % (39.0-53.0); HGB 13.6 gm/dL (13.0-17.5); Lymphocytes # (A) 1.3 k/uL (1.0-4.8); Lymphocytes % (A) 43 %; MCHC 31.9 g/dL (31.0-37.0); MCV 90.8 fL (80.0-100.0); Mean Platelet Volume 7.7; Monocytes # (A) 0.1 k/uL (0-1.0); Monocytes % (A) 4 %; Neutrophils # (A) 1.5 k/uL (1.3-7.7); Neutrophils % (A) 49 %; Platelet Count 169 k/uL (150-450); RBC 4.68 m/uL (4.30-5.90); RDW 13.5 % (11.5-15.5); WBC 3.1 k/uL (3.8-10.6)
[2021-09-23 16:24] LABS: ALT 18 U/L (4-49); AST 41 U/L (17-59); African American GFR (CKD) >90 (>60 ml/min/1.73 sqM); Albumin 4.7 g/dL (3.5-5.0); Alkaline Phosphatase 97 U/L (38-126); Anion Gap 15 mmol/L; Blood Urea Nitrogen 13 mg/dL (9-20); Calcium 8.6 mg/dL (8.4-10.2); Carbon Dioxide 26 mmol/L (22-30); Chloride 103 mmol/L (98-107); Glucose 91 mg/dL (74-99); Non-African American GFR(CKD) >90 (>60 ml/min/1.73 sqM); Potassium 4.1 mmol/L (3.5-5.1); Sodium 144 mmol/L (137-145); Total Bilirubin 0.5 mg/dL (0.2-1.3); Total Protein 7.8 g/dL (6.3-8.2)
[2021-09-23 16:44] LABS: Alcohol 297 mg/dL
[2021-09-23 17:15] LABS: Appearance,Urine Clear (Clear); Bilirubin,Urine Negative (Negative); Blood,Urine Negative (Negative); Color,Urine Yellow; Glucose,Urine (UA) Negative (Negative); Hyaline Casts,Urine 12 /lpf (0-2); Ketones,Urine Negative (Negative); Leukocyte Esterase,Urine Negative (Negative); Mucus,Urine Occasional /hpf; Nitrite,Urine Negative (Negative); Protein,Urine 2+ (Negative); RBC,Urine 1 /hpf (0-5); Specific Gravity,Urine 1.019 (1.001-1.035); Urobilinogen,Urine <2.0 mg/dL (<2.0); WBC,Urine 1 /hpf (0-5)
[2021-09-23 17:16] LABS: Amphetamine Screen,Urine Not Detected (NotDetected); Barbiturate Screen,Urine Not Detected (NotDetected); Benzodiazepines Screen,Urine Not Detected (NotDetected); Cocaine Screen,Urine Not Detected (NotDetected); Methadone Screen, Urine Not Detected (NotDetected); Opiate Screen,Urine Not Detected (NotDetected); Oxycodone Screen, Urine Not Detected (NotDetected); Phencyclidine Screen,Urine Not Detected (NotDetected); Tricyclic Antidepressant,Urine Not Detected (NotDetected); Urn Cannabinoid Scrn Not Detected (NotDetected)
[2021-09-23] MEDS ORDERED: IBUPROFEN 600 MG TAB PO STA (17:32)
[2021-09-23] MEDS ORDERED: ONDANSETRON 4 MG/2 ML VIAL IVP PRN (17:42)
[2021-09-23] MEDS ORDERED: NALOXONE 0.4 MG/ML 1 ML VIAL IV PRN (17:42)
[2021-09-23] MEDS: SODIUM CHLORIDE 0.9% 1,000 ML IV SCH (18:22)
[2021-09-23] MEDS: LORazepam 2 MG/ML INJ IV PRN (19:54)
[2021-09-24] MEDS: SODIUM CHLORIDE 0.9% 1,000 ML IV SCH (04:47)
[2021-09-24] MEDS: LORazepam 2 MG/ML INJ IV PRN (04:47)
[2021-09-24] MEDS ORDERED: THIAMINE 100 MG TAB PO SCH (07:30)
[2021-09-24] MEDS ORDERED: ALBUTEROL HFA INHALER INHALATION PRN (08:46)
[2021-09-24] MEDS ORDERED: NON FORMULARY DRUG (Buprenorphine Hcl/Naloxone Hcl [Suboxone 8 Mg-2 Mg Sl Film] 1 EACH Fil SUBLINGUAL PRN (08:46)
[2021-09-24] MEDS ORDERED: busPIRone HCl 5 MG TAB PO PRN (08:46)
[2021-09-24] MEDS ORDERED: clonazePAM 0.5 MG TAB PO PRN (08:46)
[2021-09-24] MEDS ORDERED: PANTOPRAZOLE 40 MG TABLET PO SCH (09:00)
--- NOTE | 2021-09-24 10:58 | P.HPIM ---
History of Present Illness H&P Date: 09/24/21 Please use this as both the H&P and discharge summary History of present illness: This is a 40-year-old male with past medical history of EtOH abuse who presents for evaluation of EtOH withdrawal. Patient states that he's been drinking 2 pints to a fifth daily for the past week. Patient states he'll drink half a beer this morning concerned that he is withdrawing. Patient states that he had vomited 6 times. He does admit to hand tremors. No visual or auditory hallucinations. No known seizure activity however patient states that he did have several withdrawal seizures before. Denies any drug use. No other concerns. At this time patient is quite sleepy. He is only able to answer questions periodically through the interview. His family physician is Dr. Weeks. He is in no acute distress at this time. Patient is afebrile, heart rate 93, respirations 18, blood pressure 98/65 pulse ox 96% on room air. WBC 3.1, hemoglobin 13.6, platelets 169, sodium 144, potassium 4.1, BUN 13, creatinine 0.73, serum alcohol 297. Review Of Systems: Constitutional: No fever, no chills, no night sweats. No weight change. No weakness, fatigue or lethargy. No daytime sleepiness. EENT: No headache. No blurred vision or double vision, no loss of vision. No loss of Hearing, no ringing in the ears, no dizziness. No nasal drainage or congestion. No epistaxis. No sore throat. Lungs: No shortness of breath, cough, no sputum production. No wheezing. Cardiovascular: No chest pain, no lower extremity edema. No palpitations. No paroxysmal nocturnal dyspnea. No orthopnea. No lightheadedness or dizziness. No syncopal episodes. Abdominal: no abdominal discomfort. No nausea, vomiting. no diarrhea. No constipation. No bloody or tarry stools. no loss of appetite. Genitourinary: No dysuria, increased frequency, urgency. No urinary retention. Musculoskeletal: No myalgias. No muscle weakness, no gait dysfunction, no frequent falls. No back pain. No neck pain. Integumentary: No wounds, no lesions. No rash or pruritus. No unusual bruising. No change in hair or nails. Neurologic: No aphasia. No facial droop. No change in mentation. No head injury. No headache. No paralysis. No paresthesia. Psychiatric: No depression. No anxiety. No mood swings. Endocrine: No abnormal blood sugars. No weight change. No excessive sweating or thirst. Social history: Complaint to a fifth a day. One pack-a-day smoker since age of 15[address] any [address] or illicit drug use. Family history: Mother is alive with no major health problems. Physical examination General Appearance: Alert, cooperative, no distress, appears stated age. Neck HEENT: Supple, no lymphadenopathy, no thyroid enlargement, no carotid bruits. Lungs: Clear to auscultation without crackles or wheezes no rhonchi, no deformity. Chest Wall: Chest wall normal expansion with deep inspiration no tenderness and no deformity was found on exam, no costochondral pain or discomfort. Heart: Regular rate and rhythm, S1, S2 normal, no murmur, rub or gallop. Back: Symmetric, no curvature, ROM normal, no CVA tenderness. Abdomen: Soft, non-tender, no rebound or rigidity, no hepatosplenomegaly. Extremities: Extremities normal, atraumatic, no cyanosis or edema. Pulses: 2+ and symmetric. Skin: Skin color, texture, tugor normal, no rashes or lesions. Neurologic: Alert oriented x3 cranial nerves II through XII intact, no motor deficit, no abnormal balance or gait Assessment and plan/ discharge diagnosis 1. EtOH intoxication/withdrawal and dairy to alcoholism: Continued C waw protocol, decrease sedation, continue with BuSpar, Klonopin, Ativan as needed, thiamine. Once patient is awake and alert he will be able to be discharged today. 2. COPD. Ventolin 3. GERD. Zofran, Protonix 4. Opiate addiction. Suboxone. CODE STATUS: Full code Discharge plan/ disposition. Home today Impression and plan of care have been directed as dictated by the signing lukasz Whitney nurse practitioner acting as scribe for signing physician. Past Medical History Past Medical History: COPD, GERD/Reflux, Seizure Disorder Additional Past Medical History / Comment(s): Alcoholism , pt has scoliosis as a child History of Any Multi-Drug Resistant Organisms: None Reported Past Surgical History: No Surgical Hx Reported Additional Past Surgical History / Comment(s): Strabismus surgery as a child- Left eye surgery. blind in left eye Past Anesthesia/Blood Transfusion Reactions: No Reported Reaction Past Psychological History: Anxiety, Depression Additional Psychological History / Comment(s): Patient states he has been diagnosed with bipolar. Took adderall in the past. Smoking Status: Current every day smoker Past Alcohol Use History: None Reported Additional Past Alcohol Use History / Comment(s): Patient is a smoker one pack per day since he was 15 years of age. He denies any street drug or marijuana use. States he drinks at least a fifth everyday. Past Drug Use History: None Reported Additional Drug Use History / Comment(s): fentanyl- use 03-19-19. - Past Family History Father Family Medical History: COPD Additional Family Medical History / Comment(s): Father is alive in his 50s with history of COPD. Sister(s) Additional Family Medical History / Comment(s): He has 5 sisters and one has drug abuse issues. Patient does not have any brothers. He has one 5-year-old daughter. Mother History Unknown: Yes Additional Family Medical History / Comment(s): Mother is alive in her 50s with no major medical problems. Medications and Allergies Home Medications Medication Instructions Recorded Confirmed Type Buprenorphine HCl/Naloxone HCl 1 film SL TID PRN 03/06/20 09/23/21 History [Suboxone 8 mg-2 mg Sl Film] Omeprazole 20 mg PO DAILY 09/13/20 09/23/21 History Albuterol Sulfate [Proair Hfa] 2 puff INHALATION RT-QID PRN 30 09/15/20 09/23/21 Rx Days #1 inhaler busPIRone HCL 15 mg PO BID PRN 01/25/21 09/23/21 History traZODone HCL 300 mg PO HS 01/25/21 09/23/21 History Ibuprofen [Motrin] 800 mg PO BID-W/MEALS PRN 09/23/21 09/23/21 History clonazePAM [KlonoPIN] 0.25 mg PO BID PRN 09/23/21 09/23/21 History Allergies Allergy/AdvReac Type Severity Reaction Status Date / Time No Known Allergies Allergy Verified 09/23/21 16:31 Physical Exam Vitals: Vital Signs Temp Pulse Pulse Resp BP BP Pulse Ox 09/24/21 04:37 98.5 F 93 18 98/65 96 09/23/21 22:55 74 16 09/23/21 22:07 98.2 F 74 16 103/65 91 L 09/23/21 21:42 98.2 F 78 16 105/70 95 09/23/21 19:31 98 F 78 16 107/78 95 09/23/21 14:56 97.9 F 83 16 111/76 96 Intake and Output 09/23/21 09/24/21 09/24/21 22:59 06:59 14:59 Intake Total 1560 Balance 1560 Intake: Intake, IV Titration 1560 Amount Sodium Chloride 0.9% 1, 1560 000 ml @ 130 mls/hr IV . [id number] [facility] Rx#:[id number] Other: Voiding Method Toilet Weight 72.575 kg Results CBC & Chem 7: 09/23/21 16:01 09/23/21 16:01 Labs: Abnormal Lab Results - Last 24 Hours (Table) 09/23/21 09/23/21 09/23/21 Range/Units 16:01 16:01 16:58 WBC 3.1 L (3.8-10.6) k/uL Urine Protein 2+ H (Negative) Hyaline Casts 12 H (0-2) /lpf Urine Mucus Occasional H (None) /hpf Serum Alcohol 297 H* mg/dL Thrombosis Risk Factor Assmnt - Choose All That Apply Any of the Below Risk Factors Present?: Yes Each Factor Represents 1 point: Age 41-60 years Other Risk Factors: No Other congenital or acquired thrombophilia - If yes, enter type in comment: No Thrombosis Risk Factor Assessment Total Risk Factor Score: 1 Thrombosis Risk Factor Assessment Level: Low Risk
[2021-09-24 12:49] VITALS: BP 98/63; PULSE 55; RESP 16; TEMP 98.6
== END 2021-09-24 17:07 | disposition home or self-care (01) ==
LOC: EC 14:51 → 5NMEDONC 18:56
PROVIDERS: ADMIT Internal Medicine Geriatric Medicine; ATTEND Internal Medicine Geriatric Medicine
DX: F10.229 Alcohol dependence with intoxication, unspecified (principal); F10.239 Alcohol dependence with withdrawal, unspecified; J44.9 Chronic obstructive pulmonary disease, unspecified; K21.9 Gastro-esophageal reflux disease without esophagitis; F11.20 Opioid dependence, uncomplicated; F17.210 Nicotine dependence, cigarettes, uncomplicated; G40.909 Epilepsy, unspecified, not intractable, without status epilepticus; F31.9 Bipolar disorder, unspecified; F41.9 Anxiety disorder, unspecified; Y90.8 Blood alcohol level of 240 mg/100 ml or more; H54.62 Unqualified visual loss, left eye, normal vision right eye; Z79.899 Other long term (current) drug therapy; Z82.5 Family history of asthma and other chronic lower respiratory diseases; Z81.3 Family history of other psychoactive substance abuse and dependence
CPT/HCPCS: 96376 ×2; 96361; 96372; 96374; 96375; 99284; 36415; 80053; 83735; 85025; 81001; 80306; G0378 ×2; G0480; J2060 ×2; J3411; J2405 ×2; 80320

== ENCOUNTER 2021-10-04 00:55 | Observation (INO) | payer OTHER ==
[2021-10-04] MEDS ORDERED: SODIUM CHLORIDE 0.9% 1,000 ML IV STA ×2 (01:07)
[2021-10-04] MEDS ORDERED: SODIUM CHLORIDE 0.9% 500 ML 500 ML IV STA (01:07)
--- NOTE | 2021-10-04 01:09 | ED ---
Alcohol HPI - General Chief Complaint: Recheck/Abnormal Lab/Rx Stated Complaint: ETOH Time Seen by Provider: 10/04/21 01:00 Source: patient, RN notes reviewed, old records reviewed Mode of arrival: EMS Limitations: no limitations - History of Present Illness Initial Comments: This is a 41-year-old male severely intoxicated coming in for evaluation regar ding unresponsiveness. Patient won't our facility for intoxication. Patient unable to provide history secondary to difficulty with speech and slurred speech MD Complaint: alcohol intoxication, alcohol dependence Last Drink: just [employer] -: minute(s) Previous Visits for Alcohol Intoxication?: Yes Recent Trauma: No Associated Symptoms: denies other symptoms Treatments Prior to Arrival: none Chronic Alcohol Use: Yes - Related Data Home Medications Medication Instructions Recorded Confirmed Buprenorphine HCl/Naloxone HCl 1 film SL TID PRN 03/06/20 09/23/21 [Suboxone 8 mg-2 mg Sl Film] Omeprazole 20 mg PO DAILY 09/13/20 09/23/21 busPIRone HCL 15 mg PO BID PRN 01/25/21 09/23/21 traZODone HCL 300 mg PO HS 01/25/21 09/23/21 Ibuprofen [Motrin] 800 mg PO BID-W/MEALS PRN 09/23/21 09/23/21 clonazePAM [KlonoPIN] 0.25 mg PO BID PRN 09/23/21 09/23/21 Previous Rx's Medication Instructions Recorded Albuterol Sulfate [Proair Hfa] 2 puff INHALATION RT-QID PRN 30 09/15/20 Days #1 inhaler Allergies Allergy/AdvReac Type Severity Reaction Status Date / Time No Known Allergies Allergy Verified 10/04/21 01:02 Review of Systems ROS Statement: Those systems with pertinent positive or pertinent negative responses have been documented in the HPI. ROS Other: All systems not noted in ROS Statement are negative. Past Medical History Past Medical History: COPD, GERD/Reflux, Seizure Disorder Additional Past Medical History / Comment(s): Alcoholism , pt has scoliosis as a child History of Any Multi-Drug Resistant Organisms: None Reported Past Surgical History: No Surgical Hx Reported Additional Past Surgical History / Comment(s): Strabismus surgery as a child- Left eye surgery. blind in left eye Past Anesthesia/Blood Transfusion Reactions: No Reported Reaction Past Psychological History: Anxiety, Depression Smoking Status: Current every day smoker Past Alcohol Use History: None Reported Past Drug Use History: None Reported - Past Family History Father Family Medical History: COPD Additional Family Medical History / Comment(s): Father is alive in his 50s with history of COPD. Sister(s) Additional Family Medical History / Comment(s): He has 5 sisters and one has drug abuse issues. Patient does not have any brothers. He has one 5-year-old daughter. Mother History Unknown: Yes Additional Family Medical History / Comment(s): Mother is alive in her 50s with no major medical problems. General Exam Limitations: altered mental status General appearance: appears intoxicated, lethargic Head exam: Present: atraumatic, normocephalic, normal inspection Eye exam: Present: normal appearance, PERRL, EOMI. Absent: scleral icterus, conjunctival injection, periorbital swelling ENT exam: Present: normal exam, mucous membranes moist Neck exam: Present: normal inspection. Absent: tenderness, meningismus, lymphad enopathy Respiratory exam: Present: normal lung sounds bilaterally. Absent: respiratory distress, wheezes, rales, rhonchi, stridor Cardiovascular Exam: Present: regular rate, normal rhythm, normal heart sounds. Absent: systolic murmur, diastolic murmur, rubs, gallop, clicks GI/Abdominal exam: Present: soft, normal bowel sounds. Absent: distended, tenderness, guarding, rebound, rigid Extremities exam: Present: normal inspection, full ROM, normal capillary refill. Absent: tenderness, pedal edema, joint swelling, calf tenderness Back exam: Present: normal inspection Neurological exam: Present: alert, oriented X3, CN II-XII intact Psychiatric exam: Present: normal affect, normal mood Skin exam: Present: warm, dry, intact, normal color. Absent: rash Course Vital Signs 10/04/21 00:58 Temperature 98.5 F Pulse Rate 91 Respiratory 16 Rate Blood Pressure 108/79 O2 Sat by Pulse 98 Oximetry - Reevaluation(s) Reevaluation #1: 10/04/21 01:08 Medical record is reviewed Reevaluation #2: 10/04/21 01:08 Patient does have pickup warrant here in the emergency department but is unsafe for shelter with his breathalyzer being greater than 300 likely with a blood alcoho l around 400 - Consultations Consultation #1: Spoke with Dr. Easley who will admit this patient Medical Decision Making - Medical Decision Making 41 male with significant alcohol intoxication greater than 400, patient will be admitted for alcohol toxicity and poisoning - Lab Data Result diagrams: 10/04/21 01:00 10/04/21 01:00 Lab Results 10/04/21 10/04/21 Range/Units 01:00 01:00 WBC 3.6 L (3.8-10.6) k/uL RBC 4.76 (4.30-5.90) m/uL Hgb 14.3 (13.0-17.5) gm/dL Hct 43.3 (39.0-53.0) % MCV 90.9 (80.0-100.0) fL MCH 30.0 (25.0-35.0) pg MCHC 33.0 (31.0-37.0) g/dL RDW 14.9 (11.5-15.5) % Plt Count 145 L (150-450) k/uL MPV 9.4 Neutrophils % 16 % Lymphocytes % 72 % Monocytes % 5 % Eosinophils % 4 % Basophils % 1 % Neutrophils # 0.6 L (1.3-7.7) k/uL Lymphocytes # 2.6 (1.0-4.8) k/uL Monocytes # 0.2 (0-1.0) k/uL Eosinophils # 0.1 (0-0.7) k/uL Basophils # 0.0 (0-0.2) k/uL Manual Slide Review Performed Sodium 145 (137-145) mmol/L Potassium 3.9 (3.5-5.1) mmol/L Chloride 108 H (98-107) mmol/L Carbon Dioxide 26 (22-30) mmol/L Anion Gap 11 mmol/L BUN 10 (9-20) mg/dL Creatinine 0.64 L (0.66-1.25) mg/dL Est GFR (CKD-EPI)AfAm >90 (>60 ml/min/1.73 sqM) Est GFR (CKD-EPI)NonAf >90 (>60 ml/min/1.73 sqM) Glucose 103 H (74-99) mg/dL Calcium 8.4 (8.4-10.2) mg/dL Phosphorus 3.9 (2.5-4.5) mg/dL Magnesium 1.6 (1.6-2.3) mg/dL Total Bilirubin 0.3 (0.2-1.3) mg/dL AST 59 (17-59) U/L ALT 27 (4-49) U/L Alkaline Phosphatase 71 (38-126) U/L Total Protein 7.7 (6.3-8.2) g/dL Albumin 4.5 (3.5-5.0) g/dL Lipase 166 (23-300) U/L Serum Alcohol 403 H* mg/dL Disposition Clinical Impression: Alcohol intoxication, Alcohol withdrawal, Alcohol use disorder, severe, in sustained remission, Major depressive disorder, recurrent severe without psychotic features, Alcohol use disorder Disposition: ADMITTED IP TO THIS HOSP Condition: Serious Is patient prescribed a controlled substance at d/c from ED?: No Referrals: Surya Easley MD [Primary Care Provider] - 1-2 days
[2021-10-04 01:46] LABS: Basophils % (A) 1 %; Eosinophils # (A) 0.1 k/uL (0-0.7); Eosinophils % (A) 4 %; HCT 43.3 % (39.0-53.0); HGB 14.3 gm/dL (13.0-17.5); Lymphocytes # (A) 2.6 k/uL (1.0-4.8); Lymphocytes % (A) 72 %; MCV 90.9 fL (80.0-100.0); Mean Platelet Volume 9.4; Monocytes # (A) 0.2 k/uL (0-1.0); Monocytes % (A) 5 %; Neutrophils # (A) 0.6 k/uL (1.3-7.7); Neutrophils % (A) 16 %; Platelet Count 145 k/uL (150-450); RBC 4.76 m/uL (4.30-5.90); RDW 14.9 % (11.5-15.5); WBC 3.6 k/uL (3.8-10.6)
[2021-10-04 02:07] LABS: ALT 27 U/L (4-49); AST 59 U/L (17-59); African American GFR (CKD) >90 (>60 ml/min/1.73 sqM); Albumin 4.5 g/dL (3.5-5.0); Alkaline Phosphatase 71 U/L (38-126); Anion Gap 11 mmol/L; Blood Urea Nitrogen 10 mg/dL (9-20); Calcium 8.4 mg/dL (8.4-10.2); Carbon Dioxide 26 mmol/L (22-30); Chloride 108 mmol/L (98-107); Glucose 103 mg/dL (74-99); Lipase 166 U/L (23-300); Magnesium 1.6 mg/dL (1.6-2.3); Non-African American GFR(CKD) >90 (>60 ml/min/1.73 sqM); Phosphorus 3.9 mg/dL (2.5-4.5); Potassium 3.9 mmol/L (3.5-5.1); Sodium 145 mmol/L (137-145); Total Bilirubin 0.3 mg/dL (0.2-1.3); Total Protein 7.7 g/dL (6.3-8.2)
[2021-10-04 02:19] LABS: Alcohol 403 mg/dL
[2021-10-04] MEDS ORDERED: NALOXONE 0.4 MG/ML 1 ML VIAL IV PRN (02:20)
[2021-10-04] MEDS ORDERED: THIAMINE 100 MG/ML 2 ML VIAL IM STA (02:20)
[2021-10-04] MEDS ORDERED: LORazepam 2 MG/ML INJ IV PRN ×2 (02:20)
[2021-10-04] MEDS ORDERED: ONDANSETRON 4 MG/2 ML VIAL IVP PRN (02:20)
[2021-10-04] MEDS ORDERED: DEXTROSE 5%-0.45% NACL 1,000 ML IV SCH (02:30)
[2021-10-04] MEDS: LORazepam 2 MG/ML INJ IV PRN ×2 (09:58→11:12)
--- NOTE | 2021-10-04 10:30 | P.HPIM ---
History of Present Illness H&P Date: 10/04/21 HISTORY AND PHYSICAL AND DISCHARGE SUMMARY: History of present illness: This is a 41-year-old male with past medical history of EtOH abuse who presents for evaluation of EtOH withdrawal. Patient states that he's been drinking 2 pints to a fifth daily for some weeks. Patient states his drinking is interfering with his work. He states he is planning to go to [place] today. He has been drinking a fifth of vodka per day and has had heavy alcohol intake since she was 16 years of age. No visual or auditory hallucinations. No known seizure activity however patient states that he did have several withdrawal seizures before. Denies any drug use. No other concerns. Patient was brought into [facility] emergency center by EMS. He was found to be afebrile, heart rate in the 90s, blood pressure 108/79, pulse ox 98% on room air. WBC 3.6, hemoglobin 14.3, platelet count 145. Sodium 145, potassium 3.9, chloride 108, CO2 26, BUN 10 and creatinine 0.64. Blood sugar 103. Magnesium 1.6. Liver function tests within normal limits. Lipase 166. Serum alcohol level 403. Patient was placed on the observation unit, started on CIWA protocol. Consult was placed with home health care case manager to discuss his plan for admission at [place] but patient was verbally abusive with foul language to the home health care case manager. Patient has a [facility] number to make his arrangements. Review Of Systems: Constitutional: No fever, no chills, no night sweats. No weight change. No weakness, fatigue or lethargy. No daytime sleepiness. EENT: No headache. No blurred vision or double vision, no loss of vision. No loss of Hearing, no ringing in the ears, no dizziness. No nasal drainage or congestion. No epistaxis. No sore throat. Lungs: No shortness of breath, cough, no sputum production. No wheezing. Cardiovascular: No chest pain, no lower extremity edema. No palpitations. No paroxysmal nocturnal dyspnea. No orthopnea. No lightheadedness or dizziness. No syncopal episodes. Abdominal: no abdominal discomfort. No nausea, vomiting. no diarrhea. No constipation. No bloody or tarry stools. no loss of appetite. Genitourinary: No dysuria, increased frequency, urgency. No urinary retention. Musculoskeletal: No myalgias. No muscle weakness, no gait dysfunction, no frequent falls. No back pain. No neck pain. Integumentary: No wounds, no lesions. No rash or pruritus. No unusual bruising. No change in hair or nails. Neurologic: No aphasia. No facial droop. No change in mentation. No head injury. No headache. No paralysis. No paresthesia. Psychiatric: No depression. Reports anxiety. No mood swings. Endocrine: No abnormal blood sugars. No weight change. No excessive sweating or thirst. Social history: Patient reports that he drinks a fifth of vodka per day. He has had heavy alcohol intake since he was 16 years of age.. One pack-a-day smoker since age of 15[address] any [address] or illicit drug use. 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 Family history: Mother is . Father is alive in his 70s with history of COPD. Patient has 5 sisters no brothers. He is unable to relate any medical problems with his family. He has one daughter with no major medical problems. Physical examination: General Appearance: Alert, cooperative, no distress, appears stated age. Neck HEENT: Supple, no lymphadenopathy, no thyroid enlargement, no carotid bruits. Lungs: Clear to auscultation without crackles or wheezes no rhonchi, no deformity. Chest Wall: Chest wall normal expansion with deep inspiration no tenderness and no deformity was found on exam, no costochondral pain or discomfort. Heart: Regular rate and rhythm, S1, S2 normal, no murmur, rub or gallop. Back: Symmetric, no curvature, ROM normal, no CVA tenderness. Abdomen: Soft, non-tender, no rebound or rigidity, no hepatosplenomegaly. Extremities: Extremities normal, atraumatic, no cyanosis or edema. Pulses: 2+ and symmetric. Skin: Skin color, texture, tugor normal, no rashes or lesions. Neurologic: Alert oriented x3 cranial nerves II through XII intact, no motor deficit, no abnormal balance or gait Assessment and plan/ discharge diagnosis: 1. EtOH intoxication/withdrawal secondary to alcoholism: Continued CIWA p rotocol. Patient will be able to be discharged today. 2. COPD, Stable without exacerbation 3. GERD. CODE STATUS: Full code Discharge plan: Home today Discharge Medication List Buprenorphine HCl/Naloxone HCl [Suboxone 8 mg-2 mg Sl Film] 1 film SL TID PRN 03/06/20 [History] Omeprazole 20 mg PO DAILY 09/13/20 [History] Albuterol Sulfate [Proair Hfa] 2 puff INHALATION RT-QID PRN 30 Days #1 inhaler 09/15/20 [Rx] busPIRone HCL 15 mg PO BID PRN 01/25/21 [History] Ibuprofen [Motrin] 800 mg PO BID-W/MEALS PRN 09/23/21 [History] clonazePAM [KlonoPIN] 0.25 mg PO BID PRN 09/23/21 [History] Folic Acid 1 mg PO DAILY 10/04/21 [History] Multivitamins, Thera [Multivitamin (formulary)] 1 tab PO DAILY 10/04/21 [History] chlordiazePOXIDE HCl [chlordiazePOXIDE HCL] See Taper PO DIRECTED 10/04/21 [History] traZODone HCL 300 mg PO HS 10/04/21 [History] Impression and plan of care have been directed as dictated by the signing physician. Lina Dougherty nurse practitioner acting as scribe for signing physician. Past Medical History Past Medical History: COPD, GERD/Reflux, Seizure Disorder Additional Past Medical History / Comment(s): Alcoholism , pt has scoliosis as a child History of Any Multi-Drug Resistant Organisms: None Reported Past Surgical History: No Surgical Hx Reported Additional Past Surgical History / Comment(s): Strabismus surgery as a child- Left eye surgery. blind in left eye Past Anesthesia/Blood Transfusion Reactions: No Reported Reaction Past Psychological History: Anxiety, Depression Additional Psychological History / Comment(s): Patient states he has been diagnosed with bipolar. Took adderall in the past. Smoking Status: Current every day smoker Past Alcohol Use History: None Reported Additional Past Alcohol Use History / Comment(s): Patient is a smoker one pack per day since he was 15 years of age. He denies any street drug or marijuana use. States he drinks at least a fifth everyday. Past Drug Use History: None Reported Additional Drug Use History / Comment(s): fentanyl- use 03-19-19. - Past Family History Father Family Medical History: COPD Additional Family Medical History / Comment(s): Father is alive in his 50s with history of COPD. Sister(s) Additional Family Medical History / Comment(s): He has 5 sisters and one has drug abuse issues. Patient does not have any brothers. He has one 5-year-old daughter. Mother History Unknown: Yes Additional Family Medical History / Comment(s): Mother is alive in her 50s with no major medical problems. Medications and Allergies Home Medications Medication Instructions Recorded Confirmed Type Buprenorphine HCl/Naloxone HCl 1 film SL TID PRN 03/06/20 10/04/21 History [Suboxone 8 mg-2 mg Sl Film] Omeprazole 20 mg PO DAILY 09/13/20 10/04/21 History Albuterol Sulfate [Proair Hfa] 2 puff INHALATION RT-QID PRN 30 09/15/20 10/04/21 Rx Days #1 inhaler busPIRone HCL 15 mg PO BID PRN 01/25/21 10/04/21 History Ibuprofen [Motrin] 800 mg PO BID-W/MEALS PRN 09/23/21 10/04/21 History clonazePAM [KlonoPIN] 0.25 mg PO BID PRN 09/23/21 10/04/21 History Folic Acid 1 mg PO DAILY 10/04/21 10/04/21 History Multivitamins, Thera [Multivitamin 1 tab PO DAILY 10/04/21 10/04/21 History (formulary)] chlordiazePOXIDE HCl See Taper PO DIRECTED 10/04/21 10/04/21 History [chlordiazePOXIDE HCL] traZODone HCL 300 mg PO HS 10/04/21 10/04/21 History Allergies Allergy/AdvReac Type Severity Reaction Status Date / Time No Known Allergies Allergy Verified 10/04/21 01:02 Physical Exam Vitals: Vital Signs Temp Pulse Pulse Resp BP BP BP 10/04/21 07:00 98.1 F 74 12 95/65 10/04/21 04:09 98.2 F 77 14 97/61 10/04/21 03:05 91 16 106/78 10/04/21 00:58 98.5 F 91 16 108/79 Pulse Ox 10/04/21 07:00 98 10/04/21 04:09 95 10/04/21 03:05 98 10/04/21 00:58 98 Intake and Output 10/03/21 10/04/21 10/04/21 22:59 06:59 14:59 Intake Total 300 Balance 300 Intake: Intake, IV Titration 300 Amount Dextrose 5%-0.45% NaCl 1, 300 000 ml @ 100 mls/hr IV . Q10H [facility] Rx#:[id number] Other: Weight 58.967 kg Results CBC & Chem 7: 10/04/21 01:00 10/04/21 01:00 Labs: Abnormal Lab Results - Last 24 Hours (Table) 10/04/21 10/04/21 Range/Units 01:00 01:00 WBC 3.6 L (3.8-10.6) k/uL Plt Count 145 L (150-450) k/uL Neutrophils # 0.6 L (1.3-7.7) k/uL Chloride 108 H (98-107) mmol/L Creatinine 0.64 L (0.66-1.25) mg/dL Glucose 103 H (74-99) mg/dL Serum Alcohol 403 H* mg/dL Thrombosis Risk Factor Assmnt - Choose All That Apply Any of the Below Risk Factors Present?: Yes Each Factor Represents 1 point: Age 41-60 years Other Risk Factors: No Other congenital or acquired thrombophilia - If yes, enter type in comment: No Thrombosis Risk Factor Assessment Total Risk Factor Score: 1 Thrombosis Risk Factor Assessment Level: Low Risk
[2021-10-04 13:14] VITALS: BP 108/69; PULSE 94; RESP 14; TEMP 98.3
[2021-10-04] MEDS ORDERED: THIAMINE 100 MG TAB PO SCH (17:30)
== END 2021-10-04 15:38 | disposition home or self-care (01) ==
LOC: EC 00:55 → 6NMEDSUR 02:20
PROVIDERS: ADMIT Internal Medicine Geriatric Medicine; ATTEND Internal Medicine Geriatric Medicine
DX: F10.229 Alcohol dependence with intoxication, unspecified (principal); F33.2 Major depressive disorder, recurrent severe without psychotic features; F10.239 Alcohol dependence with withdrawal, unspecified; J44.9 Chronic obstructive pulmonary disease, unspecified; F17.210 Nicotine dependence, cigarettes, uncomplicated; M41.9 Scoliosis, unspecified; G40.909 Epilepsy, unspecified, not intractable, without status epilepticus; K21.9 Gastro-esophageal reflux disease without esophagitis; H54.62 Unqualified visual loss, left eye, normal vision right eye; F41.9 Anxiety disorder, unspecified; Y90.8 Blood alcohol level of 240 mg/100 ml or more; Z79.899 Other long term (current) drug therapy; Z98.890 Other specified postprocedural states; Z82.5 Family history of asthma and other chronic lower respiratory diseases; Z81.3 Family history of other psychoactive substance abuse and dependence
CPT/HCPCS: 96376; 96374; 96361; 96372; 99285; 36415; 80053; 83690; 83735; 84100; 85025; G0378; G0480; J2060; J3411; 80320

== ENCOUNTER 2021-10-07 23:25 | Emergency (ER) | payer OTHER ==
[2021-10-07 23:54] VITALS: RESP 16; TEMP 98.3
[2021-10-08] MEDS ORDERED: LORazepam 1 MG TAB PO STA (03:23)
[2021-10-08 04:24] LABS: HCT 46.6 % (39.0-53.0); HGB 15.1 gm/dL (13.0-17.5); MCH 29.7 pg (25.0-35.0); MCHC 32.4 g/dL (31.0-37.0); MCV 91.6 fL (80.0-100.0); Mean Platelet Volume 8.4; RBC 5.09 m/uL (4.30-5.90); RDW 15.1 % (11.5-15.5)
[2021-10-08 04:31] LABS: ALT 71 U/L (4-49); AST 149 U/L (17-59); African American GFR (CKD) >90 (>60 ml/min/1.73 sqM); Albumin 5.1 g/dL (3.5-5.0); Alkaline Phosphatase 86 U/L (38-126); Anion Gap 15 mmol/L; Blood Urea Nitrogen 14 mg/dL (9-20); Calcium 8.9 mg/dL (8.4-10.2); Carbon Dioxide 27 mmol/L (22-30); Chloride 104 mmol/L (98-107); Glucose 128 mg/dL (74-99); Non-African American GFR(CKD) >90 (>60 ml/min/1.73 sqM); Sodium 146 mmol/L (137-145); Total Bilirubin 0.4 mg/dL (0.2-1.3)
[2021-10-08 04:38] LABS: Alcohol 260 mg/dL
[2021-10-08 04:50] LABS: Eosinophils # (M) 0.04 k/uL (0-0.7); Lymphocytes # (M) 2.92 k/uL (1.0-4.8); Monocytes # (M) 0.16 k/uL (0-1.0); Neutrophils # (M) 0.88 k/uL (1.3-7.7); Neutrophils % (M) 22 %; Nucleated Red Blood Cells 0 /100 WBC (0-0); Total Cells Counted 100
[2021-10-08] MEDS ORDERED: PANTOPRAZOLE 40 MG TABLET PO STA (06:49)
--- NOTE | 2021-10-08 06:59 | ED ---
Alcohol HPI - General Chief Complaint: Alcohol Stated Complaint: Withdrawals Time Seen by Provider: 10/08/21 03:16 Source: patient Mode of arrival: EMS Limitations: no limitations - History of Present Illness Initial Comments: This patient is 41-year-old man presenting with complaint that he is having a hard time stopping drinking. The patient states that he had been clean of alcohol for about one year and then about a month ago he started drinking. He states that he drinks liquor sometimes up to a fifth per day. Patient feels some heartburn. He states if he stops drinking get shaky. MD Complaint: alcohol withdrawal Last Drink: just AG[employer]K Previous Visits for Alcohol Intoxication?: Yes Recent Trauma: No Associated Symptoms: other (Heartburn) Treatments Prior to Arrival: none Chronic Alcohol Use: Yes - Related Data Home Medications Medication Instructions Recorded Confirmed Buprenorphine HCl/Naloxone HCl 1 film SL TID PRN 03/06/20 10/04/21 [Suboxone 8 mg-2 mg Sl Film] Omeprazole 20 mg PO DAILY 09/13/20 10/04/21 busPIRone HCL 15 mg PO BID PRN 01/25/21 10/04/21 Ibuprofen [Motrin] 800 mg PO BID-W/MEALS PRN 09/23/21 10/04/21 clonazePAM [KlonoPIN] 0.25 mg PO BID PRN 09/23/21 10/04/21 Folic Acid 1 mg PO DAILY 10/04/21 10/04/21 Multivitamins, Thera [Multivitamin 1 tab PO DAILY 10/04/21 10/04/21 (formulary)] chlordiazePOXIDE HCl See Taper PO DIRECTED 10/04/21 10/04/21 [chlordiazePOXIDE HCL] traZODone HCL 300 mg PO HS 10/04/21 10/04/21 Previous Rx's Medication Instructions Recorded Albuterol Sulfate [Proair Hfa] 2 puff INHALATION RT-QID PRN 30 09/15/20 Days #1 inhaler chlordiazePOXIDE HCl [Librium] 25 mg PO QID 3 Days #12 capsule 10/08/21 Allergies Allergy/AdvReac Type Severity Reaction Status Date / Time No Known Allergies Allergy Verified 10/04/21 01:02 Review of Systems ROS Statement: Those systems with pertinent positive or pertinent negative responses have been documented in the HPI. ROS Other: All systems not noted in ROS Statement are negative. Constitutional: Denies: fever, chills, weakness Eyes: Denies: vision change Respiratory: Denies: cough, dyspnea Cardiovascular: Denies: chest pain, palpitations, syncope Gastrointestinal: Reports: abdominal pain (Heartburn), nausea. Denies: vomiting, diarrhea, melena, hematochezia Musculoskeletal: Denies: back pain Skin: Denies: rash Neurological: Denies: headache, weakness, numbness Psychiatric: Reports: anxiety. Denies: homicidal thoughts, suicidal thoughts Past Medical History Past Medical History: COPD, GERD/Reflux, Seizure Disorder Additional Past Medical History / Comment(s): Alcoholism , pt has scoliosis as a child History of Any Multi-Drug Resistant Organisms: None Reported Past Surgical History: No Surgical Hx Reported Additional Past Surgical History / Comment(s): Strabismus surgery as a child- Left eye surgery. blind in left eye Past Anesthesia/Blood Transfusion Reactions: No Reported Reaction Past Psychological History: Anxiety, Depression Smoking Status: Current every day smoker Past Alcohol Use History: Abuse, Daily Past Drug Use History: None Reported - Past Family History Father Family Medical History: COPD Additional Family Medical History / Comment(s): Father is alive in his 50s with history of COPD. Sister(s) Additional Family Medical History / Comment(s): He has 5 sisters and one has drug abuse issues. Patient does not have any brothers. He has one 5-year-old daughter. Mother History Unknown: Yes Additional Family Medical History / Comment(s): Mother is alive in her 50s with no major medical problems. General Exam Limitations: no limitations General appearance: alert, in no apparent distress Head exam: Present: atraumatic, normocephalic Eye exam: Present: normal appearance. Absent: scleral icterus, conjunctival injection Respiratory exam: Present: normal lung sounds bilaterally. Absent: respiratory distress, wheezes, rales, rhonchi, stridor Cardiovascular Exam: Present: regular rate, normal rhythm, normal heart sounds. Absent: systolic murmur, diastolic murmur, rubs, gallop GI/Abdominal exam: Present: soft. Absent: distended, tenderness, guarding, rebound, rigid, mass Extremities exam: Present: normal inspection, normal capillary refill. Absent: pedal edema, calf tenderness Back exam: Present: normal inspection Neurological exam: Present: alert Psychiatric exam: Present: normal affect. Absent: manic, homicidal ideation, suicidal ideation Skin exam: Present: warm, dry, intact, normal color. Absent: rash, diaphoretic, petechiae, pallor, mottled Course Vital Signs 10/07/21 10/08/21 23:43 07:00 Temperature 98.3 F Pulse Rate 89 70 Respiratory 16 16 Rate Blood Pressure 105/74 109/82 O2 Sat by Pulse 97 96 Oximetry Medical Decision Making - Medical Decision Making Patient's 41-year-old man presenting with concern of early alcohol withdrawal. At this point patient's vital signs are stable. He is not having florid DTs. Will attempt to treat as outpatient with Librium taper. Discussed appropriate rehabilitation follow-up as well as return parameters. - Lab Data Result diagrams: 10/08/21 03:22 10/08/21 03:22 Lab Results 10/08/21 10/08/21 Range/Units 03:22 03:22 WBC 4.0 (3.8-10.6) k/uL RBC 5.09 (4.30-5.90) m/uL Hgb 15.1 (13.0-17.5) gm/dL Hct 46.6 (39.0-53.0) % MCV 91.6 (80.0-100.0) fL MCH 29.7 (25.0-35.0) pg MCHC 32.4 (31.0-37.0) g/dL RDW 15.1 (11.5-15.5) % Plt Count (150-450) k/uL MPV 8.4 Neutrophils % (Manual) 22 % Lymphocytes % (Manual) 73 % Monocytes % (Manual) 4 % Eosinophils % (Manual) 1 % Neutrophils # (Manual) 0.88 L (1.3-7.7) k/uL Lymphocytes # (Manual) 2.92 (1.0-4.8) k/uL Monocytes # (Manual) 0.16 (0-1.0) k/uL Eosinophils # (Manual) 0.04 (0-0.7) k/uL Nucleated RBCs 0 (0-0) /100 WBC Manual Slide Review Performed Sodium 146 H (137-145) mmol/L Potassium 4.0 (3.5-5.1) mmol/L Chloride 104 (98-107) mmol/L Carbon Dioxide 27 (22-30) mmol/L Anion Gap 15 mmol/L BUN 14 (9-20) mg/dL Creatinine 0.73 (0.66-1.25) mg/dL Est GFR (CKD-EPI)AfAm >90 (>60 ml/min/1.73 sqM) Est GFR (CKD-EPI)NonAf >90 (>60 ml/min/1.73 sqM) Glucose 128 H (74-99) mg/dL Calcium 8.9 (8.4-10.2) mg/dL Total Bilirubin 0.4 (0.2-1.3) mg/dL AST 149 H (17-59) U/L ALT 71 H (4-49) U/L Alkaline Phosphatase 86 (38-126) U/L Total Protein 9.0 H (6.3-8.2) g/dL Albumin 5.1 H (3.5-5.0) g/dL Serum Alcohol 260 H* mg/dL Disposition Clinical Impression: Alcohol intoxication Disposition: HOME SELF-CARE Condition: Good Instructions (If sedation given, give patient instructions): Alcohol Intoxication (ED) Prescriptions: chlordiazePOXIDE HCl [Librium] 25 mg PO QID 3 Days #12 capsule Is patient prescribed a controlled substance at d/c from ED?: No Referrals: Surya Easley MD [Primary Care Provider] - 1-2 days
[2021-10-08 07:13] VITALS: BP 109/82; PULSE 70
== END 2021-10-08 07:56 | disposition home or self-care (01) ==
LOC: EC 23:25
DX: F10.129 Alcohol abuse with intoxication, unspecified (principal); J44.9 Chronic obstructive pulmonary disease, unspecified; K21.9 Gastro-esophageal reflux disease without esophagitis; Z79.83 Long term (current) use of bisphosphonates; F17.200 Nicotine dependence, unspecified, uncomplicated
CPT/HCPCS: 36415; 80053; 85025; 99285; G0480; 80320

== ENCOUNTER 2021-10-11 02:30 | Emergency (ER) | payer OTHER ==
--- NOTE | 2021-10-11 02:32 | ED ---
Alcohol HPI - General Stated Complaint: ETOH Time Seen by Provider: 10/11/21 02:31 Source: RN notes reviewed, old records reviewed Mode of arrival: EMS Limitations: physical limitation - History of Present Illness Initial Comments: This is a 41-year-old male for refusing to participating history taking coming in for alcohol intoxication. Patient states he is wants a place to sleep. 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 -: minute(s) Previous Visits for Alcohol Intoxication?: Yes Recent Trauma: No Associated Symptoms: denies other symptoms Treatments Prior to Arrival: none Chronic Alcohol Use: Yes - Related Data Home Medications Medication Instructions Recorded Confirmed Buprenorphine HCl/Naloxone HCl 1 film SL TID PRN 03/06/20 10/04/21 [Suboxone 8 mg-2 mg Sl Film] Omeprazole 20 mg PO DAILY 09/13/20 10/04/21 busPIRone HCL 15 mg PO BID PRN 01/25/21 10/04/21 Ibuprofen [Motrin] 800 mg PO BID-W/MEALS PRN 09/23/21 10/04/21 clonazePAM [KlonoPIN] 0.25 mg PO BID PRN 09/23/21 10/04/21 Folic Acid 1 mg PO DAILY 10/04/21 10/04/21 Multivitamins, Thera [Multivitamin 1 tab PO DAILY 10/04/21 10/04/21 (formulary)] chlordiazePOXIDE HCl See Taper PO DIRECTED 10/04/21 10/04/21 [chlordiazePOXIDE HCL] traZODone HCL 300 mg PO HS 10/04/21 10/04/21 Previous Rx's Medication Instructions Recorded Albuterol Sulfate [Proair Hfa] 2 puff INHALATION RT-QID PRN 30 09/15/20 Days #1 inhaler chlordiazePOXIDE HCl [Librium] 25 mg PO QID 3 Days #12 capsule 10/08/21 Allergies Allergy/AdvReac Type Severity Reaction Status Date / Time No Known Allergies Allergy Verified 10/04/21 01:02 Review of Systems ROS Statement: Those systems with pertinent positive or pertinent negative responses have been documented in the HPI. ROS Other: All systems not noted in ROS Statement are negative. Past Medical History Past Medical History: COPD, GERD/Reflux, Seizure Disorder Additional Past Medical History / Comment(s): Alcoholism , pt has scoliosis as a child History of Any Multi-Drug Resistant Organisms: None Reported Past Surgical History: No Surgical Hx Reported Additional Past Surgical History / Comment(s): Strabismus surgery as a child- Left eye surgery. blind in left eye Past Anesthesia/Blood Transfusion Reactions: No Reported Reaction Past Psychological History: Anxiety, Depression Smoking Status: Current every day smoker Past Alcohol Use History: Abuse, Daily Past Drug Use History: None Reported - Past Family History Father Family Medical History: COPD Additional Family Medical History / Comment(s): Father is alive in his 50s with history of COPD. Sister(s) Additional Family Medical History / Comment(s): He has 5 sisters and one has drug abuse issues. Patient does not have any brothers. He has one 5-year-old daughter. Mother History Unknown: Yes Additional Family Medical History / Comment(s): Mother is alive in her 50s with no major medical problems. General Exam General appearance: appears intoxicated Head exam: Present: atraumatic, normocephalic, normal inspection Eye exam: Present: normal appearance, PERRL, EOMI. Absent: scleral icterus, conjunctival injection, periorbital swelling ENT exam: Present: normal exam, mucous membranes moist Neck exam: Present: normal inspection. Absent: tenderness, meningismus, lymphadenopathy Respiratory exam: Present: normal lung sounds bilaterally. Absent: respiratory distress, wheezes, rales, rhonchi, stridor Cardiovascular Exam: Present: regular rate, normal rhythm, normal heart sounds. Absent: systolic murmur, diastolic murmur, rubs, gallop, clicks GI/Abdominal exam: Present: soft, normal bowel sounds. Absent: distended, tenderness, guarding, rebound, rigid Extremities exam: Present: normal inspection, full ROM, normal capillary refill. Absent: tenderness, pedal edema, joint swelling, calf tenderness Back exam: Present: normal inspection Neurological exam: Present: alert, oriented X3, CN II-XII intact Psychiatric exam: Present: normal affect, normal mood Skin exam: Present: warm, dry, intact, normal color. Absent: rash Course Vital Signs 10/11/21 02:32 Temperature 98.6 F Pulse Rate 76 Respiratory 18 Rate Blood Pressure 128/94 O2 Sat by Pulse 96 Oximetry - Reevaluation(s) Reevaluation #1: 10/11/21 03:06 Medical record is reviewed Reevaluation #2: 10/11/21 03:06 Patient is able to ambulate on his own Medical Decision Making - Medical Decision Making 41 male with alcohol intoxication. Patient does not want any further evaluation, he is able to ambulate and is only can be discharged home Disposition Clinical Impression: Alcohol intoxication, Alcohol use disorder Disposition: HOME SELF-CARE Condition: Fair Instructions (If sedation given, give patient instructions): Alcohol Intoxication (ED) Is patient prescribed a controlled substance at d/c from ED?: No Referrals: Surya Easley MD [Primary Care Provider] - 1-2 days
[2021-10-11 02:39] VITALS: BP 128/94; PULSE 76; RESP 18; TEMP 98.6
== END 2021-10-11 03:09 | disposition home or self-care (01) ==
LOC: EC 02:30
DX: F10.129 Alcohol abuse with intoxication, unspecified (principal); J44.9 Chronic obstructive pulmonary disease, unspecified; G40.909 Epilepsy, unspecified, not intractable, without status epilepticus; M41.9 Scoliosis, unspecified; F32.A Depression, unspecified; F41.9 Anxiety disorder, unspecified; F17.200 Nicotine dependence, unspecified, uncomplicated; Z79.899 Other long term (current) drug therapy; Z79.51 Long term (current) use of inhaled steroids
CPT/HCPCS: 99284

== ENCOUNTER 2021-10-13 03:21 | Emergency (ER) | payer OTHER ==
[2021-10-13 03:27] VITALS: TEMP 98
[2021-10-13] MEDS ORDERED: SODIUM CHLORIDE 0.9% 1,000 ML IV ONE ×2 (04:33→06:40)
[2021-10-13 05:45] LABS: HCT 44.1 % (39.0-53.0); HGB 13.7 gm/dL (13.0-17.5); MCH 28.7 pg (25.0-35.0); MCHC 31.1 g/dL (31.0-37.0); MCV 92.4 fL (80.0-100.0); Mean Platelet Volume 8.8; Platelet Count 91 k/uL (150-450); RBC 4.77 m/uL (4.30-5.90); RDW 14.5 % (11.5-15.5); WBC 4.2 k/uL (3.8-10.6)
[2021-10-13 06:01] LABS: Sodium 143 mmol/L (137-145)
[2021-10-13 06:04] LABS: AST 95 U/L (17-59); African American GFR (CKD) >90 (>60 ml/min/1.73 sqM); Albumin 4.4 g/dL (3.5-5.0); Alkaline Phosphatase 88 U/L (38-126); Anion Gap 16 mmol/L; Blood Urea Nitrogen 13 mg/dL (9-20); Carbon Dioxide 24 mmol/L (22-30); Chloride 103 mmol/L (98-107); Glucose 80 mg/dL (74-99); Non-African American GFR(CKD) >90 (>60 ml/min/1.73 sqM); Potassium 4.1 mmol/L (3.5-5.1); Total Bilirubin 0.6 mg/dL (0.2-1.3); Total Protein 7.9 g/dL (6.3-8.2)
[2021-10-13 06:05] LABS: ALT 45 U/L (4-49); Calcium 8.6 mg/dL (8.4-10.2); Magnesium 1.5 mg/dL (1.6-2.3)
[2021-10-13 06:23] LABS: Eosinophils # (M) 0.08 k/uL (0-0.7); Lymphocytes # (M) 1.13 k/uL (1.0-4.8); Monocytes # (M) 0.08 k/uL (0-1.0); Neutrophils % (M) 69 %; Nucleated Red Blood Cells 0 /100 WBC (0-0); Total Cells Counted 100
[2021-10-13 06:31] LABS: Alcohol 239 mg/dL
[2021-10-13] MEDS ORDERED: MAGNESIUM SULFATE-D5W PMX 1 GM in DEXTROSE/WATER 1 100ML.BAG IVPB ONE (06:40)
--- NOTE | 2021-10-13 08:17 | ED ---
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 He states that he has been drinking. He is concerned he has had previous withdrawal symptoms. He states that he had been cleared from long time and then had started drinking last month. The patient's also has complaint that he has run out of Suboxone that he states is prescribed by Dr. Weeks. (Randy Dempsey) - Related Data Home Medications Medication Instructions Recorded Confirmed Buprenorphine HCl/Naloxone HCl 1 film SL TID 03/06/20 10/13/21 [Suboxone 8 mg-2 mg Sl Film] Omeprazole 20 mg PO DAILY 09/13/20 10/13/21 traZODone HCL 300 mg PO HS 10/04/21 10/13/21 Allergies Allergy/AdvReac Type Severity Reaction Status Date / Time No Known Allergies Allergy Verified 10/13/21 07:00 Review of Systems ROS Other: All systems not noted in ROS Statement are negative. Constitutional: Denies: fever, chills, weakness Eyes: Denies: vision change Respiratory: Denies: cough, dyspnea Cardiovascular: Denies: chest pain, palpitations, orthopnea, edema, syncope Gastrointestinal: Denies: abdominal pain, vomiting, diarrhea, constipation Genitourinary: Denies: dysuria, hematuria Musculoskeletal: Denies: back pain Skin: Denies: rash Neurological: Denies: headache, weakness Psychiatric: Reports: anxiety. Denies: suicidal thoughts <Randy Dempsey - Last Filed: 10/13/21 08:13> ROS Other: All systems not noted in ROS Statement are negative. <D[place] - Last Filed: 10/13/21 11:08> ROS Statement: Those systems with pertinent positive or pertinent negative responses have been documented in the HPI. Past Medical History Past Medical History: COPD, GERD/Reflux, Seizure Disorder Additional Past Medical History / Comment(s): Alcoholism , pt has scoliosis as a child History of Any Multi-Drug Resistant Organisms: None Reported Past Surgical History: No Surgical Hx Reported Additional Past Surgical History / Comment(s): Strabismus surgery as a child- Left eye surgery. blind in left eye Past Anesthesia/Blood Transfusion Reactions: No Reported Reaction Past Psychological History: Anxiety, Depression Smoking Status: Current every day smoker Past Alcohol Use History: Abuse, Daily Past Drug Use History: None Reported - Past Family History Father Family Medical History: COPD Additional Family Medical History / Comment(s): Father is alive in his 50s with history of COPD. Sister(s) Additional Family Medical History / Comment(s): He has 5 sisters and one has drug abuse issues. Patient does not have any brothers. He has one 5-year-old daughter. Mother History Unknown: Yes Additional Family Medical History / Comment(s): Mother is alive in her 50s with no major medical problems. <Randy Dempsey - Last Filed: 10/13/21 08:13> General Exam General appearance: alert, in no apparent distress Head exam: Present: atraumatic, normocephalic Eye exam: Present: normal appearance. Absent: scleral icterus, conjunctival injection ENT exam: Present: normal oropharynx Neck exam: Present: normal inspection Respiratory exam: Present: normal lung sounds bilaterally. Absent: respiratory distress, wheezes, rales, rhonchi, stridor Cardiovascular Exam: Present: regular rate, normal rhythm, normal heart sounds. Absent: systolic murmur, diastolic murmur, rubs, gallop GI/Abdominal exam: Present: soft. Absent: distended, tenderness, guarding Extremities exam: Present: normal inspection, normal capillary refill. Absent: pedal edema, calf tenderness Back exam: Present: normal inspection. Absent: CVA tenderness (R), CVA tenderness (L) Neurological exam: Present: alert Skin exam: Present: warm, dry, intact, normal color. Absent: rash <RoselynRandy - Last Filed: 10/13/21 08:13> Course Vital Signs 10/13/21 10/13/21 10/13/21 03:25 05:29 07:06 Temperature 98 F Pulse Rate 72 60 58 L Respiratory 18 16 16 Rate Blood Pressure 95/52 93/60 O2 Sat by Pulse 98 100 99 Oximetry 10/13/21 10/13/21 07:09 09:35 Temperature Pulse Rate Respiratory Rate Blood Pressure 104/66 101/70 O2 Sat by Pulse Oximetry Medical Decision Making - Lab Data Result diagrams: 10/13/21 05:31 10/13/21 05:31 <Randy Dempsey - Last Filed: 10/13/21 08:13> - Lab Data Result diagrams: 10/13/21 05:31 10/13/21 05:31 <D[place] Lake - Last Filed: 10/13/21 11:08> - Medical Decision Making Patient is signed out to [facility] for discharge home pending sobriety. Patient was sober at 11 AM. No symptoms of alcohol withdrawal this time. Vital signs are within normal limits. Patient will be discharged home in good condition. (Dalton Lake) - Lab Data Lab Results 10/13/21 10/13/21 Range/Units 05:31 05:31 WBC 4.2 (3.8-10.6) k/uL RBC 4.77 (4.30-5.90) m/uL Hgb 13.7 (13.0-17.5) gm/dL Hct 44.1 (39.0-53.0) % MCV 92.4 (80.0-100.0) fL MCH 28.7 (25.0-35.0) pg MCHC 31.1 (31.0-37.0) g/dL RDW 14.5 (11.5-15.5) % Plt Count 91 L (150-450) k/uL MPV 8.8 Neutrophils % (Manual) 69 % Lymphocytes % (Manual) 27 % Monocytes % (Manual) 2 % Eosinophils % (Manual) 2 % Neutrophils # (Manual) 2.90 (1.3-7.7) k/uL Lymphocytes # (Manual) 1.13 (1.0-4.8) k/uL Monocytes # (Manual) 0.08 (0-1.0) k/uL Eosinophils # (Manual) 0.08 (0-0.7) k/uL Nucleated RBCs 0 (0-0) /100 WBC Sodium 143 (137-145) mmol/L Potassium 4.1 (3.5-5.1) mmol/L Chloride 103 (98-107) mmol/L Carbon Dioxide 24 (22-30) mmol/L Anion Gap 16 mmol/L BUN 13 (9-20) mg/dL Creatinine 0.69 (0.66-1.25) mg/dL Est GFR (CKD-EPI)AfAm >90 (>60 ml/min/1.73 sqM) Est GFR (CKD-EPI)NonAf >90 (>60 ml/min/1.73 sqM) Glucose 80 (74-99) mg/dL Calcium 8.6 (8.4-10.2) mg/dL Magnesium 1.5 L (1.6-2.3) mg/dL Total Bilirubin 0.6 (0.2-1.3) mg/dL AST 95 H (17-59) U/L ALT 45 (4-49) U/L Alkaline Phosphatase 88 (38-126) U/L Total Protein 7.9 (6.3-8.2) g/dL Albumin 4.4 (3.5-5.0) g/dL Serum Alcohol 239 H* mg/dL Disposition <Randy Dempsey - Last Filed: 10/13/21 08:13> Is patient prescribed a controlled substance at d/c from ED?: No <[place] - Last Filed: 10/13/21 11:08> Clinical Impression: Alcohol intoxication Disposition: HOME SELF-CARE Condition: Good Instructions (If sedation given, give patient instructions): Alcohol Intoxication (ED) Referrals: Surya Easley MD [Primary Care Provider] - 1-2 days
[2021-10-13] MEDS ORDERED: LORazepam 1 MG TAB PO STA (11:10)
[2021-10-13 11:18] VITALS: BP 105/66; PULSE 105; RESP 18
== END 2021-10-13 11:38 | disposition home or self-care (01) ==
LOC: EC 03:21
DX: F10.129 Alcohol abuse with intoxication, unspecified (principal); F17.200 Nicotine dependence, unspecified, uncomplicated; J44.9 Chronic obstructive pulmonary disease, unspecified; K21.9 Gastro-esophageal reflux disease without esophagitis; Z79.899 Other long term (current) drug therapy; Y90.7 Blood alcohol level of 200-239 mg/100 ml
CPT/HCPCS: 36415; 80053; 83735; 85025; 99284; 96365; 96361; G0480; J3475; 80320

== ENCOUNTER 2021-10-25 19:36 | Emergency (ER) | payer OTHER ==
[2021-10-25 19:46] VITALS: RESP 16
[2021-10-25 20:49] LABS: Appearance,Urine Clear (Clear); Bilirubin,Urine Negative (Negative); Blood,Urine Negative (Negative); Color,Urine Colorless; Glucose,Urine (UA) Negative (Negative); Ketones,Urine Negative (Negative); Leukocyte Esterase,Urine Negative (Negative); Nitrite,Urine Negative (Negative); Protein,Urine Negative (Negative); Specific Gravity,Urine 1.004 (1.001-1.035); Urobilinogen,Urine <2.0 mg/dL (<2.0)
[2021-10-25 21:02] LABS: Amphetamine Screen,Urine Detected (NotDetected); Barbiturate Screen,Urine Not Detected (NotDetected); Benzodiazepines Screen,Urine Detected (NotDetected); Cocaine Screen,Urine Not Detected (NotDetected); Methadone Screen, Urine Not Detected (NotDetected); Opiate Screen,Urine Not Detected (NotDetected); Oxycodone Screen, Urine Not Detected (NotDetected); Phencyclidine Screen,Urine Not Detected (NotDetected); Tricyclic Antidepressant,Urine Not Detected (NotDetected); Urn Cannabinoid Scrn Not Detected (NotDetected)
--- NOTE | 2021-10-25 23:05 | ED ---
General Adult HPI - General Chief complaint: Overdose Stated complaint: overdose Source: EMS Mode of arrival: EMS Limitations: no limitations - History of Present Illness Initial comments: 41-year-old male well-known to the emergency department who presents to us from [facility]. We are told by EMS that a friend drove him to [facility] for rehab. He was then found unresponsive in the parking lot. They thought that he had overdosed on narcotics and therefore he was given 4 mg of intranasal Narcan and the patient awoke. He denies that he used any type of narcotics. He is on Suboxone which is prescribed to him. Denies using any excess doses. States that he did drink today because he drinks every day. He denies using any other illicit drugs. He cannot recall the events of what happened. He denies any pain. No report that he has been through rehab 16 times. No other alleviating, precipitating or modifying factors - Related Data Home Medications Medication Instructions Recorded Confirmed Buprenorphine HCl/Naloxone HCl 1 film SL TID 03/06/20 10/25/21 [Suboxone 8 mg-2 mg Sl Film] Omeprazole 20 mg PO DAILY 09/13/20 10/25/21 traZODone HCL 300 mg PO HS 10/04/21 10/25/21 Allergies Allergy/AdvReac Type Severity Reaction Status Date / Time No Known Allergies Allergy Verified 10/25/21 21:17 Review of Systems ROS Statement: Those systems with pertinent positive or pertinent negative responses have been documented in the HPI. ROS Other: All systems not noted in ROS Statement are negative. Past Medical History Past Medical History: COPD, GERD/Reflux, Seizure Disorder Additional Past Medical History / Comment(s): Alcoholism , pt has scoliosis as a child History of Any Multi-Drug Resistant Organisms: None Reported Past Surgical History: No Surgical Hx Reported Additional Past Surgical History / Comment(s): Strabismus surgery as a child- Left eye surgery. blind in left eye Past Anesthesia/Blood Transfusion Reactions: No Reported Reaction Past Psychological History: Anxiety, Depression Smoking Status: Current every day smoker Past Alcohol Use History: Abuse, Daily Past Drug Use History: None Reported - Past Family History Father Family Medical History: COPD Additional Family Medical History / Comment(s): Father is alive in his 50s with history of COPD. Sister(s) Additional Family Medical History / Comment(s): He has 5 sisters and one has drug abuse issues. Patient does not have any brothers. He has one 5-year-old daughter. Mother History Unknown: Yes Additional Family Medical History / Comment(s): Mother is alive in her 50s with no major medical problems. General Exam Limitations: no limitations Course Vital Signs 10/25/21 10/25/21 19:39 21:45 Pulse Rate 84 68 Respiratory 16 16 Rate Blood Pressure 110/82 135/94 O2 Sat by Pulse 98 98 Oximetry Medical Decision Making - Medical Decision Making Upon arrival patient was placed into trauma 3. History and physical exam is performed. Patient is refusing to blow into the breathalyzer and therefore we did draw an alcohol serum which is 346. Urine is positive for amphetamines, methamphetamines and benzodiazepines. Patient's is kept until he is clinically sober and will be discharged back to [facility]. - Lab Data Lab Results 10/25/21 10/25/21 Range/Units 20:41 21:22 Urine Color Colorless Urine Appearance Clear (Clear) Urine pH 8.0 (5.0-8.0) Ur Specific Bowers 1.004 (1.001-1.035) Urine Protein Negative (Negative) Urine Glucose (UA) Negative (Negative) Urine Ketones Negative (Negative) Urine Blood Negative (Negative) Urine Nitrite Negative (Negative) Urine Bilirubin Negative (Negative) Urine Urobilinogen <2.0 (<2.0) mg/dL Ur Leukocyte Esterase Negative (Negative) Urine Opiates Screen Not Detected (NotDetected) Ur Oxycodone Screen Not Detected (NotDetected) Urine Methadone Screen Not Detected (NotDetected) Ur Propoxyphene Screen Not Detected (NotDetected) Ur Barbiturates Screen Not Detected (NotDetected) U Tricyclic Antidepress Not Detected (NotDetected) Ur Phencyclidine Scrn Not Detected (NotDetected) Ur Amphetamines Screen Detected H (NotDetected) U Methamphetamines Scrn Detected H (NotDetected) U Benzodiazepines Scrn Detected H (NotDetected) Urine Cocaine Screen Not Detected (NotDetected) U Marijuana (THC) Screen Not Detected (NotDetected) Serum Alcohol 346 H* mg/dL Disposition Clinical Impression: Alcohol intoxication Disposition: HOME SELF-CARE Condition: Stable Instructions (If sedation given, give patient instructions): Alcohol Intoxication (ED) Additional Instructions: You are being discharged back to [facility]. Is patient prescribed a controlled substance at d/c from ED?: No Referrals: Bird Weeks MD [Primary Care Provider] - 1-2 days Time of Disposition: 23:06
[2021-10-26 04:07] VITALS: BP 106/81; PULSE 88
== END 2021-10-26 05:47 | disposition home or self-care (01) ==
LOC: EC 19:36
DX: F10.129 Alcohol abuse with intoxication, unspecified (principal); F17.200 Nicotine dependence, unspecified, uncomplicated; J44.9 Chronic obstructive pulmonary disease, unspecified; K21.9 Gastro-esophageal reflux disease without esophagitis; Y90.8 Blood alcohol level of 240 mg/100 ml or more; Z79.899 Other long term (current) drug therapy
CPT/HCPCS: 36415; 81003; 80306; 99284; G0480; 80320

== ENCOUNTER 2021-12-06 19:08 | Inpatient (IN) | payer OTHER ==
[2021-12-06 20:08] LABS: HCT 48.5 % (39.0-53.0); HGB 16.1 gm/dL (13.0-17.5); MCH 30.5 pg (25.0-35.0); MCHC 33.1 g/dL (31.0-37.0); MCV 92.1 fL (80.0-100.0); RBC 5.27 m/uL (4.30-5.90); RDW 15.1 % (11.5-15.5); WBC 2.5 k/uL (3.8-10.6)
[2021-12-06 20:09] LABS: ALT 138 U/L (4-49); AST 326 U/L (17-59); Acetaminophen <10.0 ug/mL; African American GFR (CKD) >90 (>60 ml/min/1.73 sqM); Albumin 4.6 g/dL (3.5-5.0); Alkaline Phosphatase 93 U/L (38-126); Anion Gap 16 mmol/L; Blood Urea Nitrogen 12 mg/dL (9-20); Calcium 8.5 mg/dL (8.4-10.2); Carbon Dioxide 30 mmol/L (22-30); Chloride 100 mmol/L (98-107); Glucose 93 mg/dL (74-99); Non-African American GFR(CKD) >90 (>60 ml/min/1.73 sqM); Salicylate <1.0 mg/dL; Sodium 146 mmol/L (137-145); Total Bilirubin 0.4 mg/dL (0.2-1.3); Total Protein 8.2 g/dL (6.3-8.2)
[2021-12-06 20:22] LABS: Alcohol 510 mg/dL
[2021-12-06 20:26] LABS: Platelet Count 34 k/uL (150-450)
[2021-12-06 20:32] LABS: Creatine Kinase MB 6.6 ng/mL (0.0-2.4); Troponin I <0.012 ng/mL (0.000-0.034)
--- NOTE | 2021-12-06 21:04 | ED ---
General Adult HPI - General Chief complaint: Altered Mental Status Stated complaint: AMS,ETOH Time Seen by Provider: 12/06/21 19:09 Source: patient, EMS, old records reviewed Mode of arrival: EMS Limitations: no limitations - History of Present Illness Initial comments: Patient is a 41-year-old male well known to the practice who was brought in via EMS when he was found unresponsive at home with concerns of over for an overdose. He admits to drinking but unfortunately where were also prescription bottles of Ativan, Klonopin and trazodone next to him as well that were all empty. Upon arrival to the emergency room he was lethargic but respo nsive answering questions slowly and occasionally with obvious intoxication. He denies taking any pills but reports that he lives alone consequently is difficult to say who the prescriptions were prescribed to and if he took them; EMS did not bring them with him and he is not accompanied by anyone at this time; it is reported that his AA sponsor found him unresponsive and called 911. He has known history of COPD, EtOH, depression and anxiety questionable seizure history. His drink of choice is typically vodka and had an empty via pocket vital to him where he was found by EMS unresponsive. Records at our facility indicate that he is on trazodone but is not not currently prescribed any benzodi azepines. He does not follow with psychiatry regularly. He has been to alcoholic rehab multiple times but continues to drink. - Related Data Home Medications Medication Instructions Recorded Confirmed Omeprazole 20 mg PO DAILY 09/13/20 12/06/21 traZODone HCL 300 mg PO HS 10/04/21 12/06/21 Allergies Allergy/AdvReac Type Severity Reaction Status Date / Time No Known Allergies Allergy Verified 12/06/21 21:23 Review of Systems ROS Statement: Those systems with pertinent positive or pertinent negative responses have been documented in the HPI. ROS Other: All systems not noted in ROS Statement are negative. Past Medical History Past Medical History: COPD, GERD/Reflux, Seizure Disorder Additional Past Medical History / Comment(s): Alcoholism , pt has scoliosis as a child History of Any Multi-Drug Resistant Organisms: None Reported Past Surgical History: No Surgical Hx Reported Additional Past Surgical History / Comment(s): Strabismus surgery as a child- Left eye surgery. blind in left eye Past Anesthesia/Blood Transfusion Reactions: No Reported Reaction Past Psychological History: Anxiety, Depression Smoking Status: Current every day smoker Past Alcohol Use History: Abuse, Daily Past Drug Use History: None Reported - Past Family History Father Family Medical History: COPD Additional Family Medical History / Comment(s): Father is alive in his 50s with history of COPD. Sister(s) Additional Family Medical History / Comment(s): He has 5 sisters and one has drug abuse issues. Patient does not have any brothers. He has one 5-year-old daughter. Mother History Unknown: Yes Additional Family Medical History / Comment(s): Mother is alive in her 50s with no major medical problems. General Exam Limitations: no limitations General appearance: in no apparent distress, appears intoxicated, lethargic Head exam: Present: atraumatic, normocephalic, normal inspection Eye exam: Present: PERRL, conjunctival injection. Absent: scleral icterus ENT exam: Present: mucous membranes moist Neck exam: Absent: lymphadenopathy Respiratory exam: Present: normal lung sounds bilaterally. Absent: respiratory distress, wheezes, rales, rhonchi, stridor Cardiovascular Exam: Present: regular rate, normal rhythm, normal heart sounds. Absent: systolic murmur, diastolic murmur, rubs, gallop, clicks GI/Abdominal exam: Present: soft, normal bowel sounds. Absent: distended, tenderness, guarding, rebound, rigid Extremities exam: Present: normal inspection. Absent: pedal edema, joint swelling Expanded Neurological exam: Present: inattentive Patient oriented to: Present: person Eye Response: (3) open to voice Motor Response: (6) obeys commands Verbal Response: (4) confused conversation Eulalio Total: 13 Psychiatric exam: Present: flat affect Skin exam: Present: warm, abrasion (left hand). Absent: rash Course Vital Signs 12/06/21 12/06/21 19:11 20:11 Temperature 97 F L Pulse Rate 104 H 95 Respiratory 10 L 16 Rate Blood Pressure 111/69 O2 Sat by Pulse 98 Oximetry Medical Decision Making - Medical Decision Making Obvious acute with intoxication denies taking any prescription medications or not his unfortunately unable to verify given acute intoxication with unresponsiveness at the scene. Will obtain urine drug screen. Will check CBC, serum alcohol level so at acid and CK. Maintaining airway hemodynamically stable on 2 L of oxygen with normal EKG. No indication for NG tube or advanced airway. Labs reveal acute intoxication with a serum alcohol level with worsening of chronic thrombocytopenia noted without any evidence of bleeding at this time. CK elevated however no indication with stable LFTs and renal function. Will start on banana bag and CIWA protocol. Dr. Weeks notified regarding patient's presentation via EMS and need for admission for alcohol intoxication. Admission orders received for observation admission. Case discussed with Dr. Heredia. - Lab Data Result diagrams: 12/06/21 19:25 12/06/21 19:25 Lab Results 12/06/21 12/06/21 12/06/21 Range/Units 19:25 19:25 19:25 WBC 2.5 L (3.8-10.6) k/uL RBC 5.27 (4.30-5.90) m/uL Hgb 16.1 (13.0-17.5) gm/dL Hct 48.5 (39.0-53.0) % MCV 92.1 (80.0-100.0) fL MCH 30.5 (25.0-35.0) pg MCHC 33.1 (31.0-37.0) g/dL RDW 15.1 (11.5-15.5) % Plt Count 34 L D (150-450) k/uL MPV 9.0 Manual Slide Review Performed Sodium 146 H (137-145) mmol/L Potassium 4.0 (3.5-5.1) mmol/L Chloride 100 (98-107) mmol/L Carbon Dioxide 30 (22-30) mmol/L Anion Gap 16 mmol/L BUN 12 (9-20) mg/dL Creatinine 0.54 L (0.66-1.25) mg/dL Est GFR (CKD-EPI)AfAm >90 (>60 ml/min/1.73 sqM) Est GFR (CKD-EPI)NonAf >90 (>60 ml/min/1.73 sqM) Glucose 93 (74-99) mg/dL Calcium 8.5 (8.4-10.2) mg/dL Total Bilirubin 0.4 (0.2-1.3) mg/dL AST 326 H (17-59) U/L ALT 138 H (4-49) U/L Alkaline Phosphatase 93 (38-126) U/L CK-MB (CK-2) 6.6 H (0.0-2.4) ng/mL Troponin I <0.012 (0.000-0.034) ng/mL Total Protein 8.2 (6.3-8.2) g/dL Albumin 4.6 (3.5-5.0) g/dL Salicylates <1.0 mg/dL Acetaminophen <10.0 ug/mL Serum Alcohol 510 H* mg/dL - EKG Data EKG Comments: Sinus rhythm, ventricular rate 92 bpm, TX interval 155 ms, QRS duration 110 ms, QT/QTC 364/414 ms, TX T axes 58, 57, 80 Disposition Clinical Impression: Alcohol intoxication Disposition: ADMITTED IP TO THIS HOSP Is patient prescribed a controlled substance at d/c from ED?: No Referrals: Bird Weeks MD [Primary Care Provider] - 1-2 days Time of Disposition: 21:48
[2021-12-06] MEDS ORDERED: SODIUM CHLORIDE 0.9% 1,000 ML with MVI, ADULT NO.4 WITH VIT K 10 ML, THIAMINE 100 MG, F... IV ONE ×4 (21:22)
[2021-12-06] MEDS ORDERED: NALOXONE 0.4 MG/ML 1 ML VIAL IV PRN (22:02)
[2021-12-06 22:14] LABS: Amphetamine Screen,Urine Not Detected (NotDetected); Barbiturate Screen,Urine Not Detected (NotDetected); Benzodiazepines Screen,Urine Detected (NotDetected); Cocaine Screen,Urine Not Detected (NotDetected); Methadone Screen, Urine Not Detected (NotDetected); Opiate Screen,Urine Not Detected (NotDetected); Oxycodone Screen, Urine Not Detected (NotDetected); Phencyclidine Screen,Urine Not Detected (NotDetected); Tricyclic Antidepressant,Urine Not Detected (NotDetected); Urn Cannabinoid Scrn Not Detected (NotDetected)
[2021-12-06] MEDS: LORazepam 2 MG/ML INJ IV PRN (22:33)
[2021-12-07] MEDS: LORazepam 2 MG/ML INJ IV PRN ×10 (02:34→23:58)
[2021-12-07 07:11] LABS: INR 0.9 (<1.2)
[2021-12-07] MEDS: PANTOPRAZOLE 40 MG TABLET PO SCH ×2 (10:05→17:38)
[2021-12-07] MEDS: SODIUM CHLORIDE 0.9% 1,000 ML IV SCH ×2 (10:06→19:58)
[2021-12-07] MEDS: MAG HYDROX/AL HYDROX/SIMETH 30 ML CUP PO PRN (11:57)
--- NOTE | 2021-12-07 14:21 | P.CN ---
Psychiatric Consult - . Consult date: 12/07/21 Consult:: 12/07/21 14:21 IDENTIFYING DATA: This patient is a single, unemployed, 41-year-old male with significant history of alcohol use disorder presented to the hospital after found unresponsive and acutely intoxicated. HISTORY OF PRESENT ILLNESS: The patient presented to the hospital on 12/06/2021, brought in to the hospital after being found unresponsive by his sponsor. Reportedly, neck severe patient were empty bottles of trazodone, Ativan, and Klonopin. There was concern that the patient intentionally overdosed on these medications. Psychiatry has been consulted for assessment of possible suicide attempt. Patient was noted to have a blood alcohol level of 510. Upon assessment on the medical floor, the patient vehemently denying any suicidal or homicidal ideation, intention, and/or plan. 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 He reports that there should have been some trazodone left in the bottle as he did not take his trazodone consistently. He does admit to drinking approximately 1 and a half fifths of vodka daily over the past 2 weeks. The patient is currently denying any significant symptoms of michelle. He reports no psychotic symptoms currently. He reports no auditory or visual hallucinations. He denies any paranoia or other delusions. The patient expresses a strong desire to go to [facility] for rehabilitation. His only concerns at this time we are his symptoms of withdrawal. He expresses that he is experiencing significant tremors and generalized malaise. The patient is not endorsing any significant depressive symptoms at this time aside from low appetite. The patient reports that he understands that his mental health will not improve if he continues to drink heavily and is wishing to get treatment for his substance use disorder. PAST PSYCHIATRIC HISTORY: Patient has a depression and alcohol use disorder. And has tried medications including BuSpar, trazodone, naltrexone, and acamprosate. The patient was last hospitalized on our psychiatric unit in August 2020. He has had at least 4-5 psychiatric hospitalizations in the past. Patient denies any psychiatric outpatient follow-up. Patient denies any history of suicide attempts in the past. PAST MEDICAL HISTORY: Past Medical History: COPD, GERD/Reflux, Seizure Disorder Additional Past Medical History / Comment(s): Alcoholism , pt has scoliosis as a child History of Any Multi-Drug Resistant Organisms: None Reported Past Surgical History: No Surgical Hx Reported Additional Past Surgical History / Comment(s): Strabismus surgery as a child- Left eye surgery. blind in left eye Past Anesthesia/Blood Transfusion Reactions: No Reported Reaction Past Psychological History: Anxiety, Depression Smoking Status: Current every day smoker Past Alcohol Use History: Abuse, Daily Past Drug Use History: None Reported ALLERGIES: NO KNOWN DRUG ALLERGIES CHEMICAL DEPENDENCY HISTORY: Patient reports drinking 1.5 fifths of liquor daily. FAMILY PSYCHIATRIC/SUBSTANCE USE HISTORY: Did not obtain SOCIAL HISTORY: e states that he was born and raised in [facility] and also in [place]. Patient graduated from high school. Patient has one daughter who is 9 years old. MENTAL STATUS EXAM: General Appearance: Patient appears to be stated age is alert, pleasant, and cooperative. Patient appears to have fair hygiene and grooming wearing hospital gown with fair eye contact. Very thin and appears somewhat emaciated. Behavior: Patient displayed psychomotor agitation and tremulousness. Speech: Patient's speech is fluent and nonpressured. Mood/Affect: Patient reports their mood is "in withdrawal", affect is congruent and malaised. Suicidality/Homicidality: Patient denies having any suicidal or homicidal ideation intent or plan. Perceptions: Patient denies any visual hallucinations and denies any auditory hallucinations Though content/process: There is no evidence of any delusional thought content and thought process is linear and goal-directed. Memory and concentration: AOX3, grossly intact for the purposes of this session. Can spell "WORLD" backwards Judgment and insight: Mildly improvement IMPRESSIONS: Alcohol use disorder Acute alcohol withdrawal Nicotine dependence History of depressive disorder PLAN: -At this time patient DOES NOT meet criteria for inpatient psychiatric admission. The primary concern for this patient is his alcohol abuse. The patient is currently vehemently denying any depressive symptoms or any suicidal ideation. Regardless of depressive symptoms, unless his alcohol use disorder is addressed, depression will not improve. -Would recommend the following medication changes/additions: No psychiatric medications be recommended at this time. We will start Librium 25 mg by mouth 3 times a day for alcohol withdrawal -Discontinue one-to-one sitter -Agree with plan for inpatient substance-abuse rehabilitation upon discharge. -Psychiatry will sign off at this point, please contact with any questions. 12/07/21 14:21
[2021-12-07 14:53] VITALS: BMI 17.2
[2021-12-07] MEDS: chlordiazePOXIDE 25 MG CAP PO SCH ×2 (15:01→21:16)
[2021-12-07] MEDS: DIPHENOX-ATROP 2.5-0.025 MG 1 EACH TAB PO PRN (20:31)
[2021-12-08] MEDS: LORazepam 2 MG/ML INJ IV PRN ×9 (01:27→20:06)
[2021-12-08] MEDS ORDERED: LORazepam 2 MG/ML INJ IV PRN (04:04)
[2021-12-08] MEDS: DIPHENOX-ATROP 2.5-0.025 MG 1 EACH TAB PO PRN (04:08)
[2021-12-08] MEDS ORDERED: HALOPERIDOL LACTATE 5 MG/ML 1 ML VIAL IM ONE (04:26)
[2021-12-08] MEDS: SODIUM CHLORIDE 0.9% 1,000 ML IV SCH ×2 (06:07→14:36)
[2021-12-08] MEDS: chlordiazePOXIDE 25 MG CAP PO SCH ×3 (07:06→23:04)
[2021-12-08] MEDS: PANTOPRAZOLE 40 MG TABLET PO SCH ×2 (07:06→17:11)
[2021-12-08] MEDS: MAG HYDROX/AL HYDROX/SIMETH 30 ML CUP PO PRN ×2 (10:44→16:31)
[2021-12-08 12:11] LABS: Basophils % (A) 1 %; Eosinophils # (A) 0.1 k/uL (0-0.7); Eosinophils % (A) 4 %; HCT 38.9 % (39.0-53.0); Lymphocytes # (A) 0.8 k/uL (1.0-4.8); Lymphocytes % (A) 40 %; MCH 29.7 pg (25.0-35.0); MCHC 31.7 g/dL (31.0-37.0); MCV 93.6 fL (80.0-100.0); Mean Platelet Volume 10.5; Monocytes # (A) 0.1 k/uL (0-1.0); Monocytes % (A) 6 %; Neutrophils # (A) 0.9 k/uL (1.3-7.7); Neutrophils % (A) 47 %; RBC 4.15 m/uL (4.30-5.90); RDW 14.6 % (11.5-15.5)
[2021-12-08 12:13] LABS: ALT 73 U/L (4-49); AST 145 U/L (17-59); African American GFR (CKD) >90 (>60 ml/min/1.73 sqM); Albumin 3.6 g/dL (3.5-5.0); Albumin/Globulin Ratio 1.2; Alkaline Phosphatase 73 U/L (38-126); Anion Gap 9 mmol/L; Blood Urea Nitrogen 12 mg/dL (9-20); Calcium 8.4 mg/dL (8.4-10.2); Carbon Dioxide 20 mmol/L (22-30); Chloride 106 mmol/L (98-107); Glucose 88 mg/dL (74-99); Non-African American GFR(CKD) >90 (>60 ml/min/1.73 sqM); Potassium 3.7 mmol/L (3.5-5.1); Sodium 135 mmol/L (137-145); Total Bilirubin 0.7 mg/dL (0.2-1.3); Total Protein 6.6 g/dL (6.3-8.2)
[2021-12-08 12:16] LABS: HGB 12.3 gm/dL (13.0-17.5); Platelet Count 22 k/uL (150-450)
[2021-12-08] MEDS ORDERED: chlordiazePOXIDE 25 MG CAP PO STA (12:41)
--- NOTE | 2021-12-08 12:59 | P.PN ---
Progress Note - Text Progress Note Date: 12/08/21 Interval History: Patient was seen resting in bed and was directable and agreeable to speak with content writer in his room. Currently, the patient expresses a desire to leave. The patient states that he is continuing to experience significant withdrawal symptoms and feels like that his medications are not addressing these properly. He continues to be unsteady on his feet, exhibits tremors, and is endorsing visual disturbances. The patient attempted to leave from the hospital despite being unsteady on his feet and was redirected to stay in the hospital until stable. A petition was filled out to facilitate his stay. The patient does express that if he was to leave he is at danger to himself by risk of seizure or accidentally running/falling into traffic. He is however denying any suicidal or homicidal ideation, intention, and/or plan. He reports some future orientation s tating that he will be going to rehab after this hospitalization. Mental Status Exam: General Appearance: Patient appears to be stated age is alert, directable, and cooperative albeit with some repetition. Behavior: Patient displays elevated psychomotor activity and restlessness. He is very unsteady on his feet. Speech: Patient's speech is fluent and nonpressured. Repetitive. Mood/Affect: Mood is "irritated." Affect is congruent and mildly irritable. Suicidality/Homicidality: Patient denies having any suicidal or homicidal ideation intent or plan. Perceptions: Patient denies any visual hallucinations and denies any auditory hallucinations Though content/process: There is no evidence of any delusional thought content and thought process is linear and goal-directed. Memory and concentration: AOX3, grossly intact for the purposes of this session Judgment and insight: Poor Vital Signs Temp 98.7 F 12/08/21 08:00 Pulse 97 12/08/21 08:00 Resp 18 12/08/21 08:00 BP 100/69 12/08/21 08:00 Pulse Ox 100 12/08/21 08:00 FiO2 Intake & Output 12/07/21 12/08/21 12/08/21 18:59 06:59 18:59 Intake Total 1700 Output Total 4 Balance 1696 Weight 49.759 kg Intake: Intake, IV Titration 1200 Amount Sodium Chloride 0.9% 1, 1200 000 ml @ 100 mls/hr IV . Q10H [facility] Rx#:[id number] Oral 500 Output: Stool 4 Other: Voiding Method Urinal Bedside Commode Toilet Urinal # Voids 2 4 # Bowel Movements 2 Laboratory Results - Last 24 Hours 12/08/21 12/08/21 11:33 11:33 WBC 2.0 L RBC 4.15 L Hgb 12.3 L D Hct 38.9 L MCV 93.6 MCH 29.7 MCHC 31.7 RDW 14.6 Plt Count 22 L MPV 10.5 Neutrophils % 47 Lymphocytes % 40 Monocytes % 6 Eosinophils % 4 Basophils % 1 Neutrophils # 0.9 L Lymphocytes # 0.8 L Monocytes # 0.1 Eosinophils # 0.1 Basophils # 0.0 Sodium 135 L Potassium 3.7 Chloride 106 Carbon Dioxide 20 L Anion Gap 9 BUN 12 Creatinine 0.62 L Est GFR (CKD-EPI)AfAm >90 Est GFR (CKD-EPI)NonAf >90 Glucose 88 Calcium 8.4 Total Bilirubin 0.7 AST 145 H ALT 73 H Alkaline Phosphatase 73 Total Protein 6.6 Albumin 3.6 Globulin 3.0 Albumin/Globulin Ratio 1.2 Assessment Alcohol use disorder Acute alcohol withdrawal Nicotine dependence History of depressive disorder Plan: -At this time patient DOES NOT meet criteria for inpatient psychiatric a dmission. -He does display capacity for medical decision making at this time. He is agreeable to continued admission for stabilization. 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 -When necessary Ativan and Geodon for agitation/aggression. -Agree with plan for inpatient substance-abuse rehabilitation upon discharge. -Psychiatry will continue to follow.
[2021-12-09] MEDS: LORazepam 2 MG/ML INJ IV PRN ×9 (01:09→20:15)
[2021-12-09] MEDS: SODIUM CHLORIDE 0.9% 1,000 ML IV SCH ×3 (02:47→16:07)
[2021-12-09] MEDS: MAG HYDROX/AL HYDROX/SIMETH 30 ML CUP PO PRN (03:39)
[2021-12-09] MEDS: chlordiazePOXIDE 25 MG CAP PO SCH ×3 (08:39→22:12)
[2021-12-09] MEDS: PANTOPRAZOLE 40 MG TABLET PO SCH ×2 (08:39→17:12)
[2021-12-09] MEDS: NICOTINE 14MG/24HR PATCH TRANSDERM SCH (08:40)
[2021-12-09] MEDS: DIPHENOX-ATROP 2.5-0.025 MG 1 EACH TAB PO PRN (11:22)
--- NOTE | 2021-12-09 12:15 | HP ---
HISTORY AND PHYSICAL CHIEF COMPLAINT: Acute alcohol intoxication and DTs. HISTORY OF PRESENT ILLNESS: This is another of many admissions for this 41-year-old white male alcoholic. He also has substance abuse and has been on Suboxone. REVIEW OF SYSTEMS: Unobtainable because he is in florid DTs. Head, ears, eyes, nose, mouth and throat found the sclerae to be normal and pupils equal and round. There was no strabismus. Neck was supple. Chest was clear. Cardiac exam demonstrated sinus tachycardia. The abdomen was soft and non-tender. Extremities were normal. Neurologically he was tremulous and in DTs. He is admitted to the hospital with diagnoses: 1. Delirium tremens. 2. Acute alcohol intoxication. 3. Chronic alcoholism. 4. History of narcotic abuse. PLAN: 1. Bedrest. 2. IV fluids. 3. CIWA protocol. 4. Psych consult because he expressed depression and suicidal thought. MMODL / IJN: [id number] /
--- NOTE | 2021-12-09 13:08 | PN ---
PROGRESS NOTE DATE OF SERVICE: 12/07/2021. CHIEF COMPLAINT: Acute alcohol intoxication and DTs. HISTORY OF PRESENT ILLNESS: This gentleman is still intoxicated and very lethargic. When awake, he is combative and tremulous. PHYSICAL EXAMINATION: Breath sounds are heard bilaterally and cardiac exam is normal. He is obtunded. IMPRESSION: 1. DTs. 2. Alcoholism. PLAN: Continue with [facility] protocol. He is being seen by Psychiatry because of comments about depression and suicide. There is a bedside sitter. MMODL / IJN: [id number] /
--- NOTE | 2021-12-09 14:03 | PN ---
PROGRESS NOTE DATE OF SERVICE: 12/08/2021. CHIEF COMPLAINT: DTs. HISTORY OF PRESENT ILLNESS: This gentleman is still very shaky. He has a 72-hour hold place so he cannot leave the hospital. PHYSICAL EXAMINATION: His vital signs are normal. Chest is clear. Cardiac exam demonstrates tachycardia. He is tremulous. He is still in DTs. IMPRESSION: Delirium tremens. PLAN: Continue with protocol until he is stable enough to be discharged. MMODL / RODRIN: [id number] /
--- NOTE | 2021-12-09 14:16 | P.PN ---
Progress Note - Text Progress Note Date: 12/09/21 Interval History: Patient was seen resting in bed and was directable and agreeable to speak with keno writer/runner in his room. The patient continues to report that he is not receiving enough Ativan or Librium. Despite this, the patient has been receiving these as scheduled and his CIWA scores are reflective of this. Furthermore, the patient vitals appeared to be stable. He is currently denying any suicidal or homicidal ideation, intention, and/or plan. He is denying any auditory or visual hallucinations. He reports no paranoia or other delusions. The patient continues to report increased tremulousness however when observed by this provider without the patient being aware (I was outside the room looking in), the patient did not display any significant tremors. This is confirmed by the patient's sitter who also reports that he really begins shaking when interviewed. Mental Status Exam: General Appearance: Patient appears to be stated age is alert, directable, and cooperative albeit with some repetition. Behavior: Patient displays normal psychomotor activity. Speech: Patient's speech is fluent and nonpressured. Repetitive. Mood/Affect: Mood is "I need more ativan" Affect is euthymic. Suicidality/Homicidality: Patient denies having any suicidal or homicidal ideation intent or plan. Perceptions: Patient denies any visual hallucinations and denies any auditory hallucinations Though content/process: There is no evidence of any delusional thought content and thought process is linear and goal-directed. Fixated on benzodiazepines. Memory and concentration: AOX3, grossly intact for the purposes of this session Judgment and insight: Poor Assessment Alcohol use disorder Acute alcohol withdrawal Nicotine dependence History of depressive disorder Plan: -At this time patient DOES NOT meet criteria for inpatient psychiatric admission. The patient is not presenting with psychiatric pathology that places him with imminent risk of harm to self or others. The patient's primary diagnosis and concern is his alcohol use disorder. -It should be noted that the patient exaggerates his involuntary movements and tremulousness when directly interviewed by this provider. However when he is observed by this provider without his cognitions, the patient appears to be still. 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 -Agree with plan for inpatient substance-abuse rehabilitation upon discharge. -Psychiatry will sign off at this time. Please call or reconsult us for any questions or concerns.
--- NOTE | 2021-12-09 15:09 | PN ---
PROGRESS NOTE DATE OF SERVICE: 12/09/2021 CHIEF COMPLAINT: DTs. HISTORY OF PRESENT ILLNESS: This gentleman is still very tremulous, but he is more awake and alert. He is anxious to be discharged. He is cooperating. REVIEW OF SYSTEMS: He denies chest pain, abdominal pain, nausea, vomiting, etc. PHYSICAL EXAMINATION: Chest demonstrates occasional rales. Cardiac exam is normal. Abdomen is soft. IMPRESSION: 1. Delirium tremens. 2. Depression. 3. Chronic alcoholism. 4. Alcoholic hepatitis. PLAN: Continue inpatient management until he is stable enough to be discharged. MMODL / IJN: [id number] /
[2021-12-10] MEDS: LORazepam 2 MG/ML INJ IV PRN ×2 (00:20→04:39)
[2021-12-10] MEDS: chlordiazePOXIDE 25 MG CAP PO SCH ×3 (08:05→21:51)
[2021-12-10] MEDS: NICOTINE 14MG/24HR PATCH TRANSDERM SCH (08:05)
[2021-12-10] MEDS: PANTOPRAZOLE 40 MG TABLET PO SCH (08:05)
[2021-12-10] MEDS: SODIUM CHLORIDE 0.9% 1,000 ML IV SCH ×2 (08:06→17:21)
[2021-12-10] MEDS: DIPHENOX-ATROP 2.5-0.025 MG 1 EACH TAB PO PRN (08:12)
[2021-12-10 11:05] LABS: Basophils % (A) 1 %; Eosinophils # (A) 0.1 k/uL (0-0.7); Eosinophils % (A) 3 %; HCT 43.2 % (39.0-53.0); HGB 13.7 gm/dL (13.0-17.5); Lymphocytes % (A) 36 %; MCH 29.5 pg (25.0-35.0); MCHC 31.7 g/dL (31.0-37.0); Mean Platelet Volume 11.3; Monocytes # (A) 0.2 k/uL (0-1.0); Monocytes % (A) 7 %; Neutrophils # (A) 1.4 k/uL (1.3-7.7); Neutrophils % (A) 50 %; RBC 4.64 m/uL (4.30-5.90); RDW 14.9 % (11.5-15.5); WBC 2.8 k/uL (3.8-10.6)
[2021-12-10 11:09] LABS: Platelet Count 31 k/uL (150-450)
[2021-12-10 11:15] LABS: Prothrombin Time 10.6 sec (9.0-12.0)
[2021-12-10 11:25] LABS: ALT 100 U/L (4-49); AST 144 U/L (17-59); African American GFR (CKD) >90 (>60 ml/min/1.73 sqM); Albumin 3.9 g/dL (3.5-5.0); Albumin/Globulin Ratio 1.2; Alkaline Phosphatase 64 U/L (38-126); Anion Gap 8 mmol/L; Blood Urea Nitrogen 11 mg/dL (9-20); Calcium 8.9 mg/dL (8.4-10.2); Carbon Dioxide 17 mmol/L (22-30); Chloride 111 mmol/L (98-107); Globulin 3.2 g/dL; Glucose 101 mg/dL (74-99); Non-African American GFR(CKD) >90 (>60 ml/min/1.73 sqM); Potassium 3.9 mmol/L (3.5-5.1); Sodium 136 mmol/L (137-145); Total Bilirubin 0.6 mg/dL (0.2-1.3); Total Protein 7.1 g/dL (6.3-8.2)
--- NOTE | 2021-12-10 14:10 | XR ---
EXAMINATION TYPE: XR chest 2V DATE OF EXAM: 12/10/2021 COMPARISON: 01/02/2021 INDICATION: Short of breath TECHNIQUE: Frontal and lateral views of the chest are obtained. FINDINGS: The heart size is normal. The pulmonary vasculature is normal. The lungs are clear. IMPRESSION: 1. No acute pulmonary process.
[2021-12-10] MEDS: ACAMPROSATE CALCIUM 333 MG TABLET.DR PO SCH ×2 (15:54→21:51)
[2021-12-10] MEDS: traZODone HCL 100 MG TAB PO SCH (21:50)
[2021-12-11] MEDS: SODIUM CHLORIDE 0.9% 1,000 ML IV SCH ×2 (06:05→15:47)
[2021-12-11] MEDS: chlordiazePOXIDE 25 MG CAP PO SCH ×3 (08:37→23:09)
[2021-12-11] MEDS: PANTOPRAZOLE 40 MG TABLET PO SCH (08:38)
[2021-12-11] MEDS: ACAMPROSATE CALCIUM 333 MG TABLET.DR PO SCH ×3 (08:38→23:09)
[2021-12-11] MEDS: NICOTINE 14MG/24HR PATCH TRANSDERM SCH (08:38)
[2021-12-11] MEDS: traZODone HCL 100 MG TAB PO SCH (23:10)
[2021-12-12] MEDS: SODIUM CHLORIDE 0.9% 1,000 ML IV SCH ×3 (07:10→15:19)
[2021-12-12] MEDS: ACAMPROSATE CALCIUM 333 MG TABLET.DR PO SCH ×3 (08:53→21:43)
[2021-12-12] MEDS: chlordiazePOXIDE 25 MG CAP PO SCH ×3 (08:53→21:43)
[2021-12-12] MEDS: PANTOPRAZOLE 40 MG TABLET PO SCH (08:53)
[2021-12-12] MEDS: NICOTINE 14MG/24HR PATCH TRANSDERM SCH (08:54)
[2021-12-12] MEDS: IBUPROFEN 800 MG TAB PO PRN ×2 (15:59→21:43)
--- NOTE | 2021-12-12 19:24 | CT ---
EXAMINATION TYPE: CT brain wo con DATE OF EXAM: 12/12/2021 COMPARISON: 01/25/2021 HISTORY: ETOH Headache CT DLP: 1078.4 mGycm Automated exposure control for dose reduction was used. Images of the brain obtained with no contrast. There is cerebral mild cortical atrophy. There is no mass effect or midline shift. No sign of intracr anial hemorrhage. Calvarium is intact. There is normal aeration of the mastoid sinuses. IMPRESSION: Mild atrophy. No acute intracranial abnormality. There is some progression compared to the old exam.
[2021-12-12] MEDS: traZODone HCL 100 MG TAB PO SCH (21:43)
--- NOTE | 2021-12-13 03:06 | EEG ---
ELECTROENCEPHALOGRAM REPORT DATE OF SERVICE: 12/12/2021. CLINICAL HISTORY: This is a 41-year-old gentleman with reported alcohol use as well as alcohol withdrawal, who has altered mental status. The video EEG is obtained to evaluate for seizure epileptiform activity. RELEVANT MEDICATION: Librium as well as Ativan p.r.n. EEG TYPE: A routine 21-channel EEG is performed with video using the 10/20 electrode placement system. DESCRIPTION: Wakefulness is only obtained. During awake state, the posterior-dominant rhythm consists of low to moderate voltage of 10 hertz activity. There was no physiological stage 2 sleep architecture. There is no focal slowing. Interictal and ictal is none. ACTIVATION PROCEDURE: Photic stimulation did not evoke a posterior driving response. There is no abnormality during the photic stimulation. Hyperventilation is not performed. CLINICAL INTERPRETATION: This is a normal routine EEG. There is no focal slowing, epileptiform discharge, or seizure on the EEG. Clinical correlation is recommended. BERNARD / MIR: [id number] / MTDD
[2021-12-13] MEDS: chlordiazePOXIDE 25 MG CAP PO SCH ×3 (08:42→22:05)
[2021-12-13] MEDS: ACAMPROSATE CALCIUM 333 MG TABLET.DR PO SCH ×3 (08:43→22:06)
[2021-12-13] MEDS: NICOTINE 14MG/24HR PATCH TRANSDERM SCH ×2 (08:43→08:45)
[2021-12-13] MEDS: PANTOPRAZOLE 40 MG TABLET PO SCH (08:43)
[2021-12-13] MEDS: SODIUM CHLORIDE 0.9% 1,000 ML IV SCH ×2 (08:44→16:42)
[2021-12-13] MEDS: IBUPROFEN 800 MG TAB PO PRN (16:42)
[2021-12-13] MEDS: traZODone HCL 100 MG TAB PO SCH (22:05)
[2021-12-14] MEDS: SODIUM CHLORIDE 0.9% 1,000 ML IV SCH ×2 (05:19→13:13)
--- NOTE | 2021-12-14 06:00 | PN ---
PROGRESS NOTE CHIEF COMPLAINT: 1. Acute alcohol intoxication. 2. Alcoholism. 3. Delirium tremens. 4. Acute psychosis. 5. Possible suicidal personality. 6. Probable developing alcoholic encephalopathy. HISTORY OF PRESENT ILLNESS: This gentleman remains weak, unsteady, and tremulous. His mentation also seems to be slowed, and it is wondered if he has developed an encephalopathy. PHYSICAL EXAMINATION: GENERAL: He remains pale, but he is quite weak. He has unstable walking, and he is using a walker. CHEST: Clear. CARDIAC: Normal. ABDOMEN: Soft and nontender. IMPRESSION: 1. Acute alcohol intoxication. 2. Chronic alcoholism. 3. Delirium tremens. 4. Possible suicidal personality. 5. Depression. 6. 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 PLAN: 1. Discontinue IV. 2. Repeat labs. 3. I will order an EEG and CT of the brain without contrast. 4. Discharge planning. BERNARD / RODRIN: [id number] /
--- NOTE | 2021-12-14 06:29 | PN ---
PROGRESS NOTE CHIEF COMPLAINT: Acute alcohol intoxication, DTs and encephalopathy. HISTORY OF PRESENT ILLNESS: This gentleman remains weak, stable and cognitively slow. He is very unstable walking. He will require some type of post hospital rehab and placement. PHYSICAL EXAMINATION: VITAL SIGNS: Normal. GENERAL: He remains pale and asthenic as well as weak. CHEST: Clear. CARDIAC: Exam is normal. ABDOMEN: Soft, nontender. IMPRESSION: 1. Acute alcohol intoxication. 2. Chronic alcoholism. 3. Delirium tremens. 4. Encephalopathy. PLAN: CT of the brain and EEG has been ordered and discharge planning is requested. MMTACHOL / IJN: [id number] /
--- NOTE | 2021-12-14 06:49 | PN ---
PROGRESS NOTE CHIEF COMPLAINT: Alcoholic encephalopathy. HISTORY OF PRESENT ILLNESS: This gentleman continues to have some difficulty with cognition. He is still having problems with ambulation. He probably should go to a rehab facility. , he understands, we have planned tomorrow he will leave the hospital and go to [facility] who will then transfer him to a rehab center. PHYSICAL EXAMINATION: CHEST: Clear. CARDIAC: Exam is normal. GENERAL: He remains very pale, weak and asthenic. IMPRESSION: 1. Chronic alcoholism. 2. Delirium tremens. 3. Encephalopathy. PLAN: Await on appropriate discharge plan. MMODL / IJN: [id number] /
--- NOTE | 2021-12-14 06:59 | PN ---
PROGRESS NOTE CHIEF COMPLAINT: Alcoholism, DTs, and encephalopathy. HISTORY OF PRESENT ILLNESS: This gentleman is still talking about leaving the hospital AMA. He is very weak and unsteady, and it is felt that he has a cognitive problem. Discharge planning is looking into post hospital care. PHYSICAL EXAMINATION: CARDIAC: Normal. CHEST: Clear. ABDOMEN: Soft. IMPRESSION: 1. Delirium tremens. 2. Encephalopathy. PLAN: Await rehab plan and location. MMODL / IJN: [id number] /
[2021-12-14] MEDS: ACAMPROSATE CALCIUM 333 MG TABLET.DR PO SCH (08:13)
[2021-12-14] MEDS: chlordiazePOXIDE 25 MG CAP PO SCH (08:14)
[2021-12-14] MEDS: PANTOPRAZOLE 40 MG TABLET PO SCH (08:14)
[2021-12-14] MEDS: NICOTINE 14MG/24HR PATCH TRANSDERM SCH (08:16)
[2021-12-14 14:33] VITALS: BP 91/60; PULSE 91; RESP 16; TEMP 98
--- NOTE | 2021-12-16 07:39 | PN ---
PROGRESS NOTE CHIEF COMPLAINT: Alcohol intoxication, DTs, alcoholic encephalopathy. HISTORY OF PRESENT ILLNESS: This gentleman is still in the hospital. He was supposed to be discharged early this morning and go to [facility], who then was going to take him to an inpatient facility. He refused to leave this morning. REVIEW OF SYSTEMS: He denies any headaches, weakness, confusion, tremulousness, etc. PHYSICAL EXAMINATION: GENERAL: He is pale and asthenic. CHEST: Clear. CARDIAC: Normal. ABDOMEN: Flat, soft, and nontender. IMPRESSION: 1. Alcoholic encephalopathy. 2. History of alcoholism. 3. Substance abuse. 4. Delirium tremens. PLAN: It is not safe for this patient to leave the hospital. He has no plans on how to get home or where to go. He is only demanding Suboxone be prescribed before he leaves the hospital. He was told that I cannot send him home on any type of sedation in view of his chronic alcoholism. His discharge plan has been delayed, and it is difficult to see a safe way for him to be discharged. MMALVINO / RODRIN: [id number] /
== END 2021-12-14 14:42 | disposition home or self-care (01) | DRG 897 ==
LOC: EC 19:08 → 4SSUR 21:24 → OBSVTOIN 12-08 13:41
PROVIDERS: ADMIT Family Medicine; ATTEND Family Medicine
PROC: 05HA33Z Insertion of Infusion Device into Left Brachial Vein, Percutaneous Approach (ICD-10-PCS; principal; 2021-12-08 07:30)
DX: F10.231 Alcohol dependence with withdrawal delirium (principal); F11.20 Opioid dependence, uncomplicated; R45.851 Suicidal ideations; D69.6 Thrombocytopenia, unspecified; G31.2 Degeneration of nervous system due to alcohol; F10.229 Alcohol dependence with intoxication, unspecified; J44.9 Chronic obstructive pulmonary disease, unspecified; K70.10 Alcoholic hepatitis without ascites; Y90.8 Blood alcohol level of 240 mg/100 ml or more; F17.200 Nicotine dependence, unspecified, uncomplicated; Z60.2 Problems related to living alone; M41.9 Scoliosis, unspecified; K21.9 Gastro-esophageal reflux disease without esophagitis; F32.A Depression, unspecified; F41.9 Anxiety disorder, unspecified; H54.62 Unqualified visual loss, left eye, normal vision right eye; Z79.899 Other long term (current) drug therapy; Z86.69 Personal history of other diseases of the nervous system and sense organs; Z56.0 Unemployment, unspecified; Z82.5 Family history of asthma and other chronic lower respiratory diseases; Z81.4 Family history of other substance abuse and dependence
CPT/HCPCS: 36410; 36415; 70450; 71046; 76937; 80053; 80143; 80179; 80306; 80320; 82140; 82553; 84484; 85025; 85610; 93005; 94760; 95816; 96365; 96375; 99285

== ENCOUNTER 2022-01-28 04:17 | Emergency (ER) | payer OTHER ==
[2022-01-28] MEDS ORDERED: LORazepam 2 MG/ML INJ IV PRN ×3 (07:45)
[2022-01-28] MEDS ORDERED: LORazepam 2 MG/ML INJ IM STA ×2 (07:45→15:39)
[2022-01-28] MEDS ORDERED: THIAMINE 100 MG/ML 2 ML VIAL IM STA (07:45)
--- NOTE | 2022-01-28 08:22 | ED ---
General Adult HPI - General Source: patient, EMS, RN notes reviewed, old records reviewed Mode of arrival: EMS <Dalton Lake - Last Filed: 01/28/22 14:25> <Phil Adamson - Last Filed: 01/28/22 19:21> - General Chief complaint: Recheck/Abnormal Lab/Rx Stated complaint: Mental Health Time Seen by Provider: 01/28/22 07:35 - History of Present Illness Initial comments: Patient is a 41-year-old male with past medical history remarkable for chronic alcohol abuse, COPD who has a history of alcohol withdrawal presents emergency Department stating he is hungry, and wants water. I evaluated the patient after he was placed in a room near the beginning of my shift. He is complaining of suicidal ideations as well as, stating that if he leaves here today, he will step in front of a bus and try to kill himself. Denies any attempts. States he will do it if he leaves. Denies any homicidal ideations, attempts, plans. Denies any visual or auditory hallucinations. He states he believes he is going to mild alcohol withdrawals at this time. His arm shaking. States he does have a history of this. Is requesting to be evaluated by psychiatry. Denies any other acute complaints at this time except for hunger. Denies nausea, vomiting, abdominal pain, chest pain, shortness of breath. Denies any fevers, chills, cough. (Dalton Lake) - Related Data Home Medications Medication Instructions Recorded Confirmed Omeprazole 20 mg PO DAILY 09/13/20 01/28/22 Albuterol Sulfate [Proair Hfa] 2 puff INHALATION RT-Q6H PRN 01/28/22 01/28/22 Buprenorphine/Naloxone 8Mg/2Mg 1 film SL BID 01/28/22 01/28/22 [Suboxone 8-2Mg Film] Ibuprofen [Motrin] 800 mg PO BID PRN 01/28/22 01/28/22 Naloxone HCl [Narcan] 4 mg NASAL DAILY PRN 01/28/22 01/28/22 Nystatin [Nystop] 1 applic TOPICAL QID PRN 01/28/22 01/28/22 clonazePAM [KlonoPIN] 1 mg PO BID PRN 01/28/22 01/28/22 Previous Rx's Medication Instructions Recorded Acamprosate Calcium [Campral] 666 mg PO TID #30 tab 12/13/21 Allergies Allergy/AdvReac Type Severity Reaction Status Date / Time No Known Allergies Allergy Verified 01/28/22 18:09 Review of Systems ROS Other: All systems not noted in ROS Statement are negative. <Dalton Lake - Last Filed: 01/28/22 14:25> ROS Other: All systems not noted in ROS Statement are negative. <Phil Adamson - Last Filed: 01/28/22 19:21> ROS Statement: Those systems with pertinent positive or pertinent negative responses have been documented in the HPI. Review of Systems: CONST: Denies fever EYES: Denies blurry vision ENT: Denies nasal congestion C/V: Denies Chest pain RESP: Denies shortness of breath GI: Denies abdominal pain : Denies dysuria SKIN: Denies rash. MSK: Denies joint pain. NEURO: Denies headache PSYCH: Denies homicidal ideations/plans/attempts. Denies visual or auditory hallucinations. He endorses suicidal ideation, plan. Denies attempt. (Dalton Lake) Past Medical History Past Medical History: COPD, GERD/Reflux, Seizure Disorder Additional Past Medical History / Comment(s): Alcoholism , pt has scoliosis as a child History of Any Multi-Drug Resistant Organisms: None Reported Past Surgical History: No Surgical Hx Reported Additional Past Surgical History / Comment(s): Strabismus surgery as a child- Left eye surgery. blind in left eye Past Anesthesia/Blood Transfusion Reactions: No Reported Reaction Past Psychological History: Anxiety, Depression Smoking Status: Current every day smoker Past Alcohol Use History: Abuse, Daily Past Drug Use History: None Reported - Past Family History Father Family Medical History: COPD Additional Family Medical History / Comment(s): Father is alive in his 50s with history of COPD. Sister(s) Additional Family Medical History / Comment(s): He has 5 sisters and one has drug abuse issues. Patient does not have any brothers. He has one 5-year-old daughter. Mother History Unknown: Yes Additional Family Medical History / Comment(s): Mother is alive in her 50s with no major medical problems. <Dalton Lake - Last Filed: 01/28/22 14:25> General Exam <Dalton Lake - Last Filed: 01/28/22 14:25> - General Exam Comments Initial Comments: General: Appears in no acute distress. History of mild alcohol withdrawal symptoms, with tremulous hands. Appears mildly intoxicated with alcohol. HEAD: Normal with no signs of head trauma. EYES: PERRLA, EOMI, conjunctiva normal, no discharge. ENT: Hearing grossly intact, normal oropharynx. RESPIRATORY: Clear breath sounds bilaterally. No wheezes, rales, or rhonchi. C/V: Regular rate and rhythm. S1 and S2 auscultated, no edema, peripheral pulse s 2+ and intact throughout ABD: Abd is soft, nontender, nondistended EXT: Normal range of motion, no obvious deformity SKIN: No rashes or lesions observed on exposed skin. NEURO: Alert and oriented x 4. Cranial nerves II-XII intact. No focal sensory or strength deficits. Patient has tremulous hands. (Dalton Lake) Course <Phil Adamson - Last Filed: 01/28/22 19:21> Vital Signs 01/28/22 01/28/22 01/28/22 04:23 15:50 18:00 Temperature 98.6 F 99.2 F 99.0 F Pulse Rate 78 102 H 96 Respiratory 15 20 20 Rate Blood Pressure 138/69 117/77 126/80 O2 Sat by Pulse 97 98 98 Oximetry - Reevaluation(s) Reevaluation #1: 01/28/22 19:17 Patient was endorsed to me by ED physician Dr. Lake (secondary to shift change) with the patient's labs still pending. Patient's hemoglobin is 13.1 and stable. Patient's stool Hemoccult is negative. Patient is hemodynamically stable. Patient has been medically cleared in the ED. EPS nurse has evaluated the patient, and she states that the patient does not meet criteria for psychiatric admission at this time. She states that the patient can be discharged home with outpatient referrals. Will discharge patient home at this time. (Phil Adamson) Medical Decision Making <Dalton Lake - Last Filed: 01/28/22 14:25> - Lab Data Result diagrams: 01/28/22 15:09 01/28/22 15:09 <Phil Adamson - Last Filed: 01/28/22 19:21> - Medical Decision Making Based on the patient's presentation and physical exam, I do believe he is acute ly intoxicated with alcohol and does require psychiatric evaluation for suicidal ideations. He has mild alcohol jaw symptoms at this time will be given 2 mg IM Ativan as he is using IV. We will continue to monitor his withdrawal symptoms with CIWA and ativan protocol which is ordered. He was placed in green scrubs. Sitter and suicide precautions were ordered. BAT is elevated at 187. Patientl y sober at 11 AM and UDS is pending. Patient will be given a diet. Vital signs are within normal limits. Patient is medically cleared for evaluation by psychiatry pending sobriety. Disposition is pending psychiatric evaluation. EPS will be notified. EPS evaluated the patient. When she was speaking with them, patient states that he was concerned that he was having rectal bleeding. Saw blood in the bathroom when he had a bowel movement. Is concerned he may be having rectal bleeding. No history of this. Not on blood thinners. Occult was done by myself, no gross blood. He'll be sent off in addition to CBC, coags. Patient was in agreement this plan. Patient does have a small abrasion on his left scrotum. At this time there is admission. Patient was signed out to the physician, Dr. Adamson. Following workup, patient will require medical clearance again and then EPS will evaluate him. (Dalton Lake) - Lab Data Lab Results 01/28/22 01/28/22 01/28/22 Range/Units 14:17 15:09 15:09 WBC 5.2 (3.8-10.6) k/uL RBC 4.33 (4.30-5.90) m/uL Hgb 13.1 (13.0-17.5) gm/dL Hct 40.4 (39.0-53.0) % MCV 93.3 (80.0-100.0) fL MCH 30.2 (25.0-35.0) pg MCHC 32.4 (31.0-37.0) g/dL RDW 13.7 (11.5-15.5) % Plt Count 110 L D (150-450) k/uL MPV 8.2 Neutrophils % 60 % Lymphocytes % 34 % Monocytes % 3 % Eosinophils % 2 % Basophils % 1 % Neutrophils # 3.1 (1.3-7.7) k/uL Lymphocytes # 1.8 (1.0-4.8) k/uL Monocytes # 0.2 (0-1.0) k/uL Eosinophils # 0.1 (0-0.7) k/uL Basophils # 0.0 (0-0.2) k/uL Sodium 138 (137-145) mmol/L Potassium 3.4 L (3.5-5.1) mmol/L Chloride 104 (98-107) mmol/L Carbon Dioxide 17 L (22-30) mmol/L Anion Gap 17 mmol/L BUN 18 (9-20) mg/dL Creatinine 0.70 (0.66-1.25) mg/dL Est GFR (CKD-EPI)AfAm >90 (>60 ml/min/1.73 sqM) Est GFR (CKD-EPI)NonAf >90 (>60 ml/min/1.73 sqM) Glucose 115 H (74-99) mg/dL Calcium 8.6 (8.4-10.2) mg/dL Total Bilirubin 0.4 (0.2-1.3) mg/dL AST 85 H (17-59) U/L ALT 48 (4-49) U/L Alkaline Phosphatase 69 (38-126) U/L Total Protein 7.0 (6.3-8.2) g/dL Albumin 4.3 (3.5-5.0) g/dL Stool Occult Blood Negative (Negative) Disposition <Dalton Lake - Last Filed: 01/28/22 14:25> Is patient prescribed a controlled substance at d/c from ED?: No Time of Disposition: 19:20 <Phil Adamson - Last Filed: 01/28/22 19:21> Clinical Impression: Suicidal ideations, Alcohol abuse Disposition: HOME SELF-CARE Condition: Stable Instructions (If sedation given, give patient instructions): Suicide Prevention (ED), Abuse of Alcohol (ED) Additional Instructions: Return to the ER immediately should he develop new or worsening symptoms, worsening suicidal thoughts, thoughts of hurting others, or new or worsening symptoms. Follow up closely with your primary care provider. Referrals: Bird Weeks MD [Primary Care Provider] - 1-2 days
[2022-01-28 15:42] LABS: Basophils % (A) 1 %; Eosinophils # (A) 0.1 k/uL (0-0.7); Eosinophils % (A) 2 %; HCT 40.4 % (39.0-53.0); HGB 13.1 gm/dL (13.0-17.5); Lymphocytes # (A) 1.8 k/uL (1.0-4.8); Lymphocytes % (A) 34 %; MCH 30.2 pg (25.0-35.0); MCHC 32.4 g/dL (31.0-37.0); MCV 93.3 fL (80.0-100.0); Mean Platelet Volume 8.2; Monocytes # (A) 0.2 k/uL (0-1.0); Monocytes % (A) 3 %; Neutrophils # (A) 3.1 k/uL (1.3-7.7); Neutrophils % (A) 60 %; RBC 4.33 m/uL (4.30-5.90); RDW 13.7 % (11.5-15.5); WBC 5.2 k/uL (3.8-10.6)
[2022-01-28 15:43] LABS: Platelet Count 110 k/uL (150-450)
[2022-01-28 15:49] LABS: ALT 48 U/L (4-49); AST 85 U/L (17-59); African American GFR (CKD) >90 (>60 ml/min/1.73 sqM); Albumin 4.3 g/dL (3.5-5.0); Alkaline Phosphatase 69 U/L (38-126); Anion Gap 17 mmol/L; Blood Urea Nitrogen 18 mg/dL (9-20); Calcium 8.6 mg/dL (8.4-10.2); Carbon Dioxide 17 mmol/L (22-30); Chloride 104 mmol/L (98-107); Glucose 115 mg/dL (74-99); Non-African American GFR(CKD) >90 (>60 ml/min/1.73 sqM); Potassium 3.4 mmol/L (3.5-5.1); Sodium 138 mmol/L (137-145); Total Bilirubin 0.4 mg/dL (0.2-1.3)
[2022-01-28] MEDS ORDERED: THIAMINE 100 MG TAB PO SCH (17:30)
[2022-01-28 23:30] VITALS: BP 127/80; PULSE 92; RESP 18; TEMP 97.8
== END 2022-01-28 19:52 | disposition home or self-care (01) ==
LOC: EC 04:17
DX: R45.851 Suicidal ideations (principal); F10.129 Alcohol abuse with intoxication, unspecified; J44.9 Chronic obstructive pulmonary disease, unspecified; K21.9 Gastro-esophageal reflux disease without esophagitis; Z86.69 Personal history of other diseases of the nervous system and sense organs; F17.200 Nicotine dependence, unspecified, uncomplicated; Z79.899 Other long term (current) drug therapy
CPT/HCPCS: 99284; 96372; 82075; 36415; 80053; 85025; 82272; J2060

== ENCOUNTER 2022-01-30 11:41 | Inpatient (IN) | payer OTHER ==
[2022-01-30] MEDS ORDERED: SODIUM CHLORIDE 0.9% 1,000 ML IV STA ×2 (12:44)
--- NOTE | 2022-01-30 12:59 | ED ---
Alcohol HPI - General Chief Complaint: Alcohol Stated Complaint: ETOH Time Seen by Provider: 01/30/22 12:25 Source: patient, EMS Mode of arrival: EMS - History of Present Illness Initial Comments: This 41-year-old male presents with a complaint of alcohol abuse. He states that he has been drinking heavily recently. He is not a very good historian. He was brought in by EMS and apparently they found him in a buddhist gardening. Some the apparently saw him there yesterday and then he was still there again today. He apparently was covered in dirt and ants. The patient is able to relate that he thinks that he fell and hit his head and might have passed out. He also was complaining of some pain to his right hip region. He denies any other complaints or modifying factors. - Related Data Home Medications Medication Instructions Recorded Confirmed Omeprazole 20 mg PO DAILY 09/13/20 01/30/22 Albuterol Sulfate [Proair Hfa] 2 puff INHALATION RT-Q6H PRN 01/28/22 01/30/22 Buprenorphine/Naloxone 8Mg/2Mg 1 film SL BID 01/28/22 01/30/22 [Suboxone 8-2Mg Film] Ibuprofen [Motrin] 800 mg PO BID PRN 01/28/22 01/30/22 Naloxone HCl [Narcan] 4 mg NASAL DAILY PRN 01/28/22 01/30/22 Nystatin [Nystop] 1 applic TOPICAL QID PRN 01/28/22 01/30/22 clonazePAM [KlonoPIN] 1 mg PO BID PRN 01/28/22 01/30/22 Allergies Allergy/AdvReac Type Severity Reaction Status Date / Time No Known Allergies Allergy Verified 01/28/22 18:09 Review of Systems ROS Statement: Those systems with pertinent positive or pertinent negative responses have been documented in the HPI. ROS Other: All systems not noted in ROS Statement are negative. Past Medical History Past Medical History: COPD, GERD/Reflux, Seizure Disorder Additional Past Medical History / Comment(s): Alcoholism , pt has scoliosis as a child History of Any Multi-Drug Resistant Organisms: None Reported Past Surgical History: No Surgical Hx Reported Additional Past Surgical History / Comment(s): Strabismus surgery as a child- Left eye surgery. blind in left eye Past Anesthesia/Blood Transfusion Reactions: No Reported Reaction Past Psychological History: Anxiety, Depression Smoking Status: Current every day smoker Past Alcohol Use History: Abuse, Daily Past Drug Use History: None Reported - Past Family History Father Family Medical History: COPD Additional Family Medical History / Comment(s): Father is alive in his 50s with history of COPD. Sister(s) Additional Family Medical History / Comment(s): He has 5 sisters and one has drug abuse issues. Patient does not have any brothers. He has one 5-year-old daughter. Mother History Unknown: Yes Additional Family Medical History / Comment(s): Mother is alive in her 50s with no major medical problems. General Exam - General Exam Comments Initial Comments: GENERAL: The patient appears malnourished and dehydrated. VITAL SIGNS: Heart rate, blood pressure, respiratory rate reviewed as recorded in nurse's notes. EYES: Pupils are round and reactive. Extraocular movements are intact. No conjunctival / lid redness or swelling. ENT: No external evidence of injury, swelling, or ecchymosis. Airway is patent. Throat is clear. Mucous membranes are dry. NECK: Nontender. No swelling or evidence of injury. No subcutaneous emphysema. Trachea is midline. No thyroid mass. HEART: Regular rate and rhythm. Good peripheral pulses. LUNGS/CHEST: Breath sounds clear and equal bilaterally. No rales, rhonchi, or wheezes. No ecchymosis, subcutaneous emphysema, or tenderness. ABDOMEN: Abdomen soft without tenderness. No palpable masses or organomegaly. No peritoneal signs. No abdominal wall swelling or ecchymosis. EXTREMITIES: No extremity tenderness. Normal muscle tone and function. No thoracolumbar tenderness. NEUROLOGIC: Sensation is grossly intact. Cranial nerve exam reveals face is symmetrical, tongue is midline, speech is clear. Patient is slow to answer questions. SKIN: No abrasions or ecchymosis is noted. No induration or masses noted. PSYCHIATRIC: Alert and pleasant, slow to respond. Course Vital Signs 01/30/22 12:23 Temperature 96.8 F L Pulse Rate 52 L Respiratory 16 Rate Blood Pressure 97/67 O2 Sat by Pulse 97 Oximetry Medical Decision Making - Medical Decision Making The patient was seen and examined. All diagnostics are reviewed. An IV is established and he is hydrated. Computed tomography scan of the brain does not show any acute process. The pelvis x-ray does not show any acute processes. The laboratory shows elevation of the alcohol level at 406. Patient has some hypernatremia as well as decreased CO2. His white blood cell count is somewhat decreased as well. He appears significantly intoxicated and will require admission for further sobering. Case is discussed with internal medicine and they are agreeable with admission. - Lab Data Result diagrams: 01/30/22 13:27 01/30/22 13:27 Lab Results 01/30/22 01/30/22 Range/Units 13:27 13:27 WBC 3.0 L (3.8-10.6) k/uL RBC 4.41 (4.30-5.90) m/uL Hgb 13.6 (13.0-17.5) gm/dL Hct 41.3 (39.0-53.0) % MCV 93.6 (80.0-100.0) fL MCH 30.9 (25.0-35.0) pg MCHC 33.0 (31.0-37.0) g/dL RDW 14.1 (11.5-15.5) % Plt Count 113 L (150-450) k/uL MPV 8.2 Neutrophils % 36 % Lymphocytes % 58 % Monocytes % 3 % Eosinophils % 1 % Basophils % 1 % Neutrophils # 1.1 L (1.3-7.7) k/uL Lymphocytes # 1.8 (1.0-4.8) k/uL Monocytes # 0.1 (0-1.0) k/uL Eosinophils # 0.0 (0-0.7) k/uL Basophils # 0.0 (0-0.2) k/uL Sodium 148 H (137-145) mmol/L Potassium 3.7 (3.5-5.1) mmol/L Chloride 111 H (98-107) mmol/L Carbon Dioxide 19 L (22-30) mmol/L Anion Gap 18 mmol/L BUN 9 (9-20) mg/dL Creatinine 0.50 L (0.66-1.25) mg/dL Est GFR (CKD-EPI)AfAm >90 (>60 ml/min/1.73 sqM) Est GFR (CKD-EPI)NonAf >90 (>60 ml/min/1.73 sqM) Glucose 88 (74-99) mg/dL Calcium 8.3 L (8.4-10.2) mg/dL Phosphorus 3.9 (2.5-4.5) mg/dL Magnesium 1.6 (1.6-2.3) mg/dL Total Bilirubin 0.4 (0.2-1.3) mg/dL AST 128 H (17-59) U/L ALT 64 H (4-49) U/L Alkaline Phosphatase 73 (38-126) U/L Total Protein 7.5 (6.3-8.2) g/dL Albumin 4.6 (3.5-5.0) g/dL Lipase 177 (23-300) U/L Serum Alcohol 406 H* mg/dL Disposition Clinical Impression: Alcohol abuse, Alcohol intoxication, Head injury, Hypernatremia Disposition: ADMITTED IP TO THIS HOSP Condition: Fair Is patient prescribed a controlled substance at d/c from ED?: No Referrals: None,Stated [Primary Care Provider] - 1-2 days Time of Disposition: 16:02 Decision Date: 01/30/22 Decision Time: 16:02
[2022-01-30 13:38] LABS: Basophils % (A) 1 %; Eosinophils % (A) 1 %; HCT 41.3 % (39.0-53.0); HGB 13.6 gm/dL (13.0-17.5); Lymphocytes # (A) 1.8 k/uL (1.0-4.8); Lymphocytes % (A) 58 %; MCH 30.9 pg (25.0-35.0); MCV 93.6 fL (80.0-100.0); Mean Platelet Volume 8.2; Monocytes # (A) 0.1 k/uL (0-1.0); Monocytes % (A) 3 %; Neutrophils # (A) 1.1 k/uL (1.3-7.7); Neutrophils % (A) 36 %; Platelet Count 113 k/uL (150-450); RBC 4.41 m/uL (4.30-5.90); RDW 14.1 % (11.5-15.5)
[2022-01-30 13:47] LABS: ALT 64 U/L (4-49); AST 128 U/L (17-59); African American GFR (CKD) >90 (>60 ml/min/1.73 sqM); Albumin 4.6 g/dL (3.5-5.0); Alkaline Phosphatase 73 U/L (38-126); Anion Gap 18 mmol/L; Blood Urea Nitrogen 9 mg/dL (9-20); Calcium 8.3 mg/dL (8.4-10.2); Carbon Dioxide 19 mmol/L (22-30); Chloride 111 mmol/L (98-107); Glucose 88 mg/dL (74-99); Lipase 177 U/L (23-300); Magnesium 1.6 mg/dL (1.6-2.3); Non-African American GFR(CKD) >90 (>60 ml/min/1.73 sqM); Phosphorus 3.9 mg/dL (2.5-4.5); Potassium 3.7 mmol/L (3.5-5.1); Sodium 148 mmol/L (137-145); Total Bilirubin 0.4 mg/dL (0.2-1.3); Total Protein 7.5 g/dL (6.3-8.2)
[2022-01-30 14:09] LABS: Alcohol 406 mg/dL
--- NOTE | 2022-01-30 14:11 | CT ---
EXAMINATION TYPE: CT brain wo con DATE OF EXAM: 01/30/2022 COMPARISON: 12/12/2021 INDICATION: Altered mental status DLP: 1143.4 mGycm, Automated exposure control for dose reduction was used. CONTRAST: None CT of the brain is performed utilizing 3 mm thick sections through the posterior fossa and 3 mm thick sections through the remaining calvarium. Study is performed within 24 hours of arrival to the hosp ital. No abnormal hyperdensity is present to suggest an acute intracranial hemorrhage. No mass lesion is evident. No acute infarcts are evident. Ventricles and sulci are appropriate for the patient age. Paranasal sinuses and mastoid air cells within the [id number] are clear. There is right septal deviation. IMPRESSIONS: 1. No acute intracranial process. Follow-up MRI can be performed as clinically indicated.
--- NOTE | 2022-01-30 14:45 | XR ---
EXAMINATION TYPE: XR pelvis AP view DATE OF EXAM: 01/30/2022 Comparison: None Clinical History: 41-year-old male pain after fall Findings: Hips appear symmetric and intact as do the SI joints and pubic symphysis. Tiny os acetabuli or degene rative labral ossification superior right acetabulum. No acute fracture, subluxation, or dislocation. Impression: No acute osseous abnormality seen.
[2022-01-30] MEDS ORDERED: ONDANSETRON 4 MG/2 ML VIAL IVP PRN (16:04)
[2022-01-30] MEDS ORDERED: clonazePAM 1 MG TAB PO PRN (16:06)
[2022-01-30] MEDS ORDERED: ALBUTEROL HFA INHALER INHALATION PRN (16:06)
[2022-01-30] MEDS ORDERED: THIAMINE 100 MG/ML 2 ML VIAL IM STA ×2 (16:06→16:07)
[2022-01-30] MEDS ORDERED: LORazepam 2 MG/ML INJ IV PRN ×6 (16:06→16:07)
[2022-01-30] MEDS ORDERED: PANTOPRAZOLE 40 MG/10 ML VIAL IV SCH (16:15)
--- NOTE | 2022-01-30 16:15 | P.HPIM ---
History of Present Illness H&P Date: 01/30/22 History of Presenting Illness: Patient is a 41-year-old male with a long-standing history of daily alcohol abuse and nicotine dependence. He presented to the emergency department via EMS with a chief complaint of alcohol intoxication after reportedly being found lying on the ground in the religion garden covered in dirt and ants. Patient reports that he remembers drinking about a fifth of alcohol, and initially was complaining of falling and hitting his head and having pain to right groin in which patient is currently denying. Patient underwent full evaluation in the emergency department. He was found to have a blood alcohol level of 406, leukopenia with WBC count of 3.0, thrombocytopenia with platelets of 113, hypernatremia with sodium of 148, hyperchloremia with chloride of 111 carbon dioxide 19 and anion gap of 18. Magnesium was 1.6 and AST elevated at 128 with ALT of 64. CT head negative for acute intercranial process. X-ray pelvis showing no acute osseous abnormalities. Patient admitted under our services at this time. He was seen and fully evaluated at the bedside. Patient required repeated verbal stimuli to answer questions and was a poor historian regarding history and daily alcohol use. Patient does admit to drinking a fifth of vodka daily and smoking cigarettes. He denies having any other drug use including marijuana, cocaine, heroin, or meth. Patient denies having any injuries or complaints at this time including headache, lightheadedness, dizziness, chest pain, palpitations, shortness of breath, nausea, vomiting, or experiencing any numbness/tingling/weakness in his extremities. Patient did have noted tremors during assessment and tachycardia. Review of systems: Pertinent positives and negatives as discussed in HPI, a complete review of systems was performed and all other systems are negative. Physical exam: Vital signs reviewed and stable. General: Nontoxic, no distress and appears stated age. Thin build. Disheveled appearance. Derm: Skin warm and dry, normal coloration for ethnicity. Head: Atraumatic, normocephalic and symmetric. Eyes: EOMs intact, no lid lag, and anicteric sclera Mouth: no lip lesions, mucus membranes moist Cardiovascular: Tachycardic rate and regular rhythm with normal S1S2, no murmur, positive posterior tibial pulses bilaterally, and cap refill < 2 seconds. Lungs: Respirations even, regular, and unlabored on room air. Lungs CTA bilaterally, no rhonchi, no rales, no wheezing, and no accessory muscle usage. Abdominal: soft, nontender to palpation, no guarding, no appreciable org anomegaly Ext: ROM intact. No gross muscle atrophy, no edema, no contractures Neuro: Speech clear, face symmetrical and CN II-XII grossly intact with no noted focal neuro deficits. Tremors present. Psych: Alert and oriented to person, place, time, and situation. Appropriate and pleasant affect. Assessment and Plan of Care: Alcohol intoxication an active alcoholic -[facility] Protocol with symptom triggered medication management with benzodiazepines. -Continuous IV hydration. -Thiamine 100 mg twice a day -Multivitamin daily -Folate 1 mg daily -Seizure, fall, aspiration, and elopement precautions in place. -Urine drug screen -Continued close monitoring of electrolytes and replace as needed. -Telemetry monitoring. -Neuro checks Hypomagnesemia -Replaced, continue to monitor with repeat a.m. labs. Nicotine dependence -Encourage smoking cessation. -Nicotine patch The patient is admitted with an anticipated greater than 2 midnight stay for evaluation of alcohol intoxication CODE STATUS: Full code DVT prophylaxis: Lovenox Discussed with: Patient and RN Anticipated discharge date: Clinical course to determine Anticipated discharge place: Home A total of 43 minutes was spent on the care of this complex patient more than 50% of the time was spent in counseling and care coordination. Past Medical History Past Medical History: COPD, GERD/Reflux, Seizure Disorder Additional Past Medical History / Comment(s): Alcoholism , pt has scoliosis as a child History of Any Multi-Drug Resistant Organisms: None Reported Past Surgical History: No Surgical Hx Reported Additional Past Surgical History / Comment(s): Strabismus surgery as a child- Left eye surgery. blind in left eye Past Anesthesia/Blood Transfusion Reactions: No Reported Reaction Past Psychological History: Anxiety, Depression Smoking Status: Current every day smoker Past Alcohol Use History: Abuse, Daily Past Drug Use History: None Reported - Past Family History Father Family Medical History: COPD Additional Family Medical History / Comment(s): Father is alive in his 50s with history of COPD. Sister(s) Additional Family Medical History / Comment(s): He has 5 sisters and one has drug abuse issues. Patient does not have any brothers. He has one 5-year-old daughter. Mother History Unknown: Yes Additional Family Medical History / Comment(s): Mother is alive in her 50s with no major medical problems. Medications and Allergies Home Medications Medication Instructions Recorded Confirmed Type Omeprazole 20 mg PO DAILY 09/13/20 01/30/22 History Albuterol Sulfate [Proair Hfa] 2 puff INHALATION RT-Q6H PRN 01/28/22 01/30/22 History Buprenorphine/Naloxone 8Mg/2Mg 1 film SL BID 01/28/22 01/30/22 History [Suboxone 8-2Mg Film] Ibuprofen [Motrin] 800 mg PO BID PRN 01/28/22 01/30/22 History Naloxone HCl [Narcan] 4 mg NASAL DAILY PRN 01/28/22 01/30/22 History Nystatin [Nystop] 1 applic TOPICAL QID PRN 01/28/22 01/30/22 History clonazePAM [KlonoPIN] 1 mg PO BID PRN 01/28/22 01/30/22 History Allergies Allergy/AdvReac Type Severity Reaction Status Date / Time No Known Allergies Allergy Verified 01/28/22 18:09 Physical Exam Vitals: Vital Signs Temp Pulse Resp BP Pulse Ox 01/30/22 12:23 96.8 F L 52 L 16 97/67 97 Intake and Output 01/30/22 01/30/22 01/30/22 06:59 14:59 22:59 Other: Weight 77.111 kg Results CBC & Chem 7: 01/30/22 13:27 01/30/22 13:27 Labs: Abnormal Lab Results - Last 24 Hours (Table) 01/30/22 01/30/22 Range/Units 13:27 13:27 WBC 3.0 L (3.8-10.6) k/uL Plt Count 113 L (150-450) k/uL Neutrophils # 1.1 L (1.3-7.7) k/uL Sodium 148 H (137-145) mmol/L Chloride 111 H (98-107) mmol/L Carbon Dioxide 19 L (22-30) mmol/L Creatinine 0.50 L (0.66-1.25) mg/dL Calcium 8.3 L (8.4-10.2) mg/dL AST 128 H (17-59) U/L ALT 64 H (4-49) U/L Serum Alcohol 406 H* mg/dL
[2022-01-30] MEDS ORDERED: NICOTINE 21MG/24HR PATCH TRANSDERM STA (16:56)
[2022-01-30] MEDS ORDERED: LORazepam 2 MG/ML INJ IM PRN ×4 (17:59→18:00)
[2022-01-30] MEDS: THIAMINE 100 MG TAB PO SCH (18:26)
[2022-01-30] MEDS: MAGNESIUM OXIDE 400 MG TAB PO SCH ×2 (18:26→21:47)
[2022-01-30 18:55] LABS: Amphetamine Screen,Urine Not Detected (NotDetected); Barbiturate Screen,Urine Not Detected (NotDetected); Benzodiazepines Screen,Urine Detected (NotDetected); Cocaine Screen,Urine Not Detected (NotDetected); Methadone Screen, Urine Not Detected (NotDetected); Opiate Screen,Urine Not Detected (NotDetected); Oxycodone Screen, Urine Not Detected (NotDetected); Phencyclidine Screen,Urine Not Detected (NotDetected); Tricyclic Antidepressant,Urine Not Detected (NotDetected); Urn Cannabinoid Scrn Not Detected (NotDetected)
[2022-01-30] MEDS: LORazepam 2 MG/ML INJ IV PRN ×2 (19:48→21:47)
[2022-01-30] MEDS ORDERED: LORazepam 1 MG/0.5 ML VIAL IV PRN (22:55)
[2022-01-30] MEDS: LORazepam 1 MG/0.5 ML VIAL IV PRN (23:22)
[2022-01-30] MEDS ORDERED: LORazepam 1 MG/0.5 ML VIAL IM PRN ×4 (23:27→23:30)
[2022-01-30] MEDS: NON FORMULARY DRUG (Buprenorphine/Naloxone 8mg/2mg 1 EACH Film) SUBLINGUAL SCH (23:52)
[2022-01-30] MEDS ORDERED: chlordiazePOXIDE 25 MG CAP PO STA (23:54)
[2022-01-31] MEDS: LORazepam 1 MG/0.5 ML VIAL IV PRN ×7 (00:59→22:44)
[2022-01-31] MEDS ORDERED: LORazepam 1 MG/0.5 ML VIAL IV PRN (01:10)
[2022-01-31] MEDS ORDERED: SODIUM CHLORIDE 0.9% 1,000 ML IV ONE (02:02)
[2022-01-31] MEDS: MAGNESIUM SULFATE-D5W PMX 1 GM in DEXTROSE/WATER 1 100ML.BAG IVPB SCH ×6 (02:37→18:58)
[2022-01-31] MEDS: SODIUM CHLORIDE 0.9% 1,000 ML IV SCH ×3 (03:26→15:18)
[2022-01-31] MEDS: NON FORMULARY DRUG (Buprenorphine/Naloxone 8mg/2mg 1 EACH Film) SUBLINGUAL SCH ×2 (07:26→19:44)
[2022-01-31] MEDS: MAGNESIUM OXIDE 400 MG TAB PO SCH ×3 (08:38→22:26)
[2022-01-31] MEDS: THIAMINE 100 MG TAB PO SCH ×2 (08:38→15:18)
[2022-01-31] MEDS: ENOXAPARIN 40 MG/0.4 ML SYRINGE SQ SCH (08:38)
[2022-01-31] MEDS: PANTOPRAZOLE 40 MG TABLET PO SCH (08:38)
[2022-01-31 10:18] LABS: HCT 32.9 % (39.6-50.0); HGB 11.2 g/dL (13.0-17.0); MCH 30.9 pg (27.0-32.0); MCV 90.6 fL (80.0-97.0); Mean Platelet Volume 11.1 fL (9.5-12.2); NRBC Per 100 WBC 0 /100 WBCS (0.0-0.0); Platelet Count 90 X 10*3/uL (140-440); RBC 3.63 X 10*6/uL (4.40-5.60); WBC 4.13 X 10*3/uL (4.50-10.00)
[2022-01-31 10:43] LABS: Albumin 3.8 g/dL (3.8-4.9); Albumin/Globulin Ratio 1.73 (1.60-3.17); BUN/Creat Ratio 14.71 Ratio (12.00-20.00); Blood Urea Nitrogen 10.3 mg/dL (9.0-27.0); Calcium 8.4 mg/dL (8.7-10.3); Globulin 2.2 g/dL (1.6-3.3); Magnesium 1.4 mg/dL (1.5-2.4); Non-African American GFR(CKD) 115.6 (60.0-200.0); Potassium 3.4 mmol/L (3.5-5.5); Total Bilirubin 0.5 mg/dL (0.30-1.20)
[2022-01-31] MEDS ORDERED: POTASSIUM CHLORIDE ER 20 MEQ TAB.ER PO STA (14:18)
--- NOTE | 2022-01-31 14:24 | P.PN ---
Subjective Progress Note Date: 01/31/22 Hospital Course Patient is a 41-year-old male with a long-standing history of daily alcohol abuse and nicotine dependence. He presented to the emergency department via EMS with a chief complaint of alcohol intoxication after reportedly being found lying on the ground in the [place] covered in dirt and ants. Patient reports that he remembers drinking about a fifth of alcohol, and initially was complaining of falling and hitting his head and having pain to right groin in which patient is currently denying. Patient underwent full evaluation in the emergency department. He was found to have a blood alcohol level of 406, leukopenia with WBC count of 3.0, thrombocytopenia with platelets of 113, hypernatremia with sodium of 148, hyperchloremia with chloride of 111 carbon dioxide 19 and anion gap of 18. Magnesium was 1.6 and AST elevated at 128 with ALT of 64. CT head negative for acute intercranial process. X-ray pelvis showing no acute osseous abnormalities. Patient admitted under our services at this time. Physical exam:: Patient seen and fully evaluated at bedside. Patient continues to have noted tremors and tachycardia this morning. CIWA score is 18 and patient transferred to inpatient admission at this time. Patient reports feeling nauseous and an xious. He currently denies having any headache, lightheadedness, dizziness, chest pain, palpitations, shortness of breath, or experiencing any numbness/tingling/weakness in his extremities. Patient requesting assistance with placement in rehab upon discharge. Discussed with case management will p rovide patient with needed information. Morning labs revealed hypomagnesemia with magnesium of 1.4 and hypokalemia with potassium 3.4. Electrolytes replaced. Vital signs reviewed and stable. General: Nontoxic, no distress and appears stated age. Thin build. Disheveled appearance. Derm: Skin warm and dry, normal coloration for ethnicity. Head: Atraumatic, normocephalic and symmetric. Eyes: EOMs intact, no lid lag, and anicteric sclera Mouth: no lip lesions, mucus membranes moist Cardiovascular: Tachycardic rate and regular rhythm with normal S1S2, no murmur, positive posterior tibial pulses bilaterally, and cap refill < 2 seconds. Lungs: Respirations even, regular, and unlabored on room air. Lungs CTA bilaterally, no rhonchi, no rales, no wheezing, and no accessory muscle usage. Abdominal: soft, nontender to palpation, no guarding, no appreciable organomegaly Ext: ROM intact. No gross muscle atrophy, no edema, no contractures Neuro: Speech clear, face symmetrical and CN II-XII grossly intact with no noted focal neuro deficits. Tremors present. Psych: Alert and oriented to person, place, time, and situation. Appropriate and pleasant affect. Assessment and Plan of Care: Alcohol intoxication an active alcoholic -[facility] Protocol with symptom triggered medication management with benzodiazepines. -Continuous IV hydration. -Thiamine 100 mg twice a day -Multivitamin daily -Folate 1 mg daily -Seizure, fall, aspiration, and elopement precautions in place. -Urine drug screen positive for benzodiazepines -Continued close monitoring of electrolytes and replace as needed. -Telemetry monitoring. -Neuro checks Hypomagnesemia -Replaced, continue to monitor with repeat a.m. labs. Hypokalemia -Replaced, continue to monitor with repeat a.m. labs. Nicotine dependence -Encourage smoking cessation. -Nicotine patch CODE STATUS: Full code DVT prophylaxis: Lovenox Discussed with: Patient and RN Anticipated discharge date: Clinical course to determine Anticipated discharge place: Home A total of 33 minutes was spent on the care of this complex patient more than 50% of the time was spent in counseling and care coordination. Rachid Molina NP rendered care for this patient independently, reviewed the findings and plan as documented in the note above. I did not physically speak with or examine the patient on this date. Objective - Vital Signs Vital signs: Vital Signs Temp 98.8 F 01/31/22 08:00 Pulse 95 01/31/22 08:00 Resp 16 01/31/22 08:00 BP 113/70 01/31/22 08:00 Pulse Ox 100 01/31/22 08:00 FiO2 Intake & Output 01/30/22 01/31/22 01/31/22 18:59 06:59 18:59 Output Total 200 Balance -200 Weight 77.111 kg 77.111 kg Output: Urine 200 Other: Voiding Method Urinal - Labs CBC & Chem 7: 01/31/22 07:16 01/31/22 07:16 Labs: Abnormal Lab Results - Last 24 Hours (Table) 01/30/22 01/31/22 01/31/22 Range/Units 18:36 07:16 07:16 WBC 4.13 L (4.50-10.00) X 10*3/uL RBC 3.63 L (4.40-5.60) X 10*6/uL Hgb 11.2 L (13.0-17.0) g/dL Hct 32.9 L (39.6-50.0) % Plt Count 90 L (140-440) X 10*3/uL Potassium 3.4 L (3.5-5.5) mmol/L Calcium 8.4 L (8.7-10.3) mg/dL Magnesium 1.4 L (1.5-2.4) mg/dL AST 99 H (14-35) U/L ALT 52 H (10-49) U/L Total Protein 6.0 L (6.2-8.2) g/dL U Benzodiazepines Scrn Detected H (NotDetected)
[2022-01-31] MEDS ORDERED: ZOLPIDEM 5 MG TAB PO PRN (20:49)
[2022-02-01] MEDS: LORazepam 1 MG/0.5 ML VIAL IV PRN ×4 (00:43→08:13)
[2022-02-01] MEDS: SODIUM CHLORIDE 0.9% 1,000 ML IV SCH ×2 (06:07→10:12)
[2022-02-01] MEDS: THIAMINE 100 MG TAB PO SCH (07:30)
[2022-02-01] MEDS: PANTOPRAZOLE 40 MG TABLET PO SCH (07:30)
[2022-02-01 08:07] VITALS: BP 107/69; PULSE 52; RESP 17; TEMP 98
--- NOTE | 2022-02-01 09:51 | P.DS ---
Providers Date of admission: 01/31/22 10:21 Expected date of discharge: 02/01/22 Attending physician: Sharonda Mendoza MD Primary care physician: Stated None Hospital Course: Discharge Diagnosis: Alcohol intoxication an active alcoholic. Patient states that he is going to his sister's house to get some clothes and is then going to [place]. Patient strongly advised to avoid any and all use of alcohol. Hypomagnesemia, resolved Hypokalemia, resolved Hypernatremia, resolved Nicotine dependence. Encouraged smoking cessation. Hospital Course: Patient is a 41-year-old male with a long-standing history of daily alcohol abuse and nicotine dependence. He presented to the emergency department via EMS with a chief complaint of alcohol intoxication after reportedly being found lying on the ground in the [place] covered in dirt and ants. Patient reports that he remembers drinking about a fifth of alcohol, and initially was complaining of falling and hitting his head and having pain to right groin in which patient is currently denying. Patient underwent full evaluation in the emergency department. He was found to have a blood alcohol level of 406, leukopenia with WBC count of 3.0, thrombocytopenia with platelets of 113, hypernatremia with sodium of 148, hyperchloremia with chloride of 111 carbon dioxide 19 and anion gap of 18. Magnesium was 1.6 and AST elevated at 128 with ALT of 64. CT head negative for acute intercranial process. X-ray pelvis showing no acute osseous abnormalities. Patient admitted under our services at this time. Patient was placed on CIWA protocol and received symptom triggered medication management with benzodiazepines to assist with symptoms of acute alcohol withdrawal. Electrolyte abnormalities were replaced. Hypernatremia, hypokalemia, and hypomagnesemia all resolved. Vital signs were unremarkable. Patient states that he is going to his sister's house to get some clothes and is then going to [place]. Patient strongly advised to avoid any and all use of alcohol. Patient medically stable for discharge at this time. Physical exam:: Vital signs reviewed and stable. General: Nontoxic, no distress and appears stated age. Thin build. Disheveled appearance. Derm: Skin warm and dry, normal coloration for ethnicity. Head: Atraumatic, normocephalic and symmetric. Eyes: EOMs intact, no lid lag, and anicteric sclera Mouth: no lip lesions, mucus membranes moist Cardiovascular: Regular rate and regular rhythm with normal S1S2, no murmur, positive posterior tibial pulses bilaterally, and cap refill < 2 seconds. Lungs: Respirations even, regular, and unlabored on room air. Lungs CTA bilaterally, no rhonchi, no rales, no wheezing, and no accessory muscle usage. Abdominal: soft, nontender to palpation, no guarding, no appreciable organomegaly Ext: ROM intact. No gross muscle atrophy, no edema, no contractures Neuro: Speech clear, face symmetrical and CN II-XII grossly intact with no noted focal neuro deficits. No tremors noted. Psych: Alert and oriented to person, place, time, and situation. Appropriate and pleasant affect. A total of 31 minutes of time were spent preparing this complex discharge summary. Pt was discharged on 02/01/22 at 9:54 AM. Patient Condition at Discharge: Stable Plan - Discharge Summary Discharge Rx Participant: Yes New Discharge Prescriptions: New Thiamine [Vitamin B-1] 100 mg PO BID-W/MEALS tab Continue Omeprazole 20 mg PO DAILY Albuterol Sulfate [Proair Hfa] 2 puff INHALATION RT-Q6H PRN PRN Reason: Shortness Of Breath Nystatin [Nystop] 1 applic TOPICAL QID PRN PRN Reason: Skin Irritation Buprenorphine/Naloxone 8Mg/2Mg [Suboxone 8-2Mg Film] 1 film SL BID Naloxone HCl [Narcan] 4 mg NASAL DAILY PRN PRN Reason: overdose Ibuprofen [Motrin] 800 mg PO BID PRN PRN Reason: Pain clonazePAM [KlonoPIN] 1 mg PO BID PRN PRN Reason: Anxiety/Withdrawal Discharge Medication List Omeprazole 20 mg PO DAILY 09/13/20 [History] Albuterol Sulfate [Proair Hfa] 2 puff INHALATION RT-Q6H PRN 01/28/22 [History] Buprenorphine/Naloxone 8Mg/2Mg [Suboxone 8-2Mg Film] 1 film SL BID 01/28/22 [History] Ibuprofen [Motrin] 800 mg PO BID PRN 01/28/22 [History] Naloxone HCl [Narcan] 4 mg NASAL DAILY PRN 01/28/22 [History] Nystatin [Nystop] 1 applic TOPICAL QID PRN 01/28/22 [History] clonazePAM [KlonoPIN] 1 mg PO BID PRN 01/28/22 [History] Thiamine [Vitamin B-1] 100 mg PO BID-W/MEALS tab 02/01/22 [Rx] Follow up Appointment(s)/Referral(s): Surya Gardner MD [STAFF PHYSICIAN] - 1 Week (Please call office to establish as a new patient. Thank you.) Patient Instructions/Handouts: How to Stop Smoking (DC), Heart Healthy Diet (DC), Basic Carbohydrate Counting (DC), Abuse of Alcohol (DC), Low-Sodium Diet (DC) Activity/Diet/Wound Care/Special Instructions: Activity: As tolerated. Take breaks as needed. Diet: Heart healthy and carb consistent diet. Avoid salts, or foods with hidden salts such as canned or boxed foods and frozen dinners. Extra salt makes your heart work harder and traps the fluid in your body for longer. Special Instructions: Good luck on your journey towards sobriety. You are being discharged to [place]. Avoid any and all alcohol use. Advise smoking cessation. Thank you for allowing us to participate in your care, it was truly a pleasure having you for our patient!!! Discharge Disposition: HOME SELF-CARE
[2022-02-01] MEDS: ENOXAPARIN 40 MG/0.4 ML SYRINGE SQ SCH (09:56)
[2022-02-01] MEDS: MAGNESIUM OXIDE 400 MG TAB PO SCH (09:57)
[2022-02-01] MEDS: NON FORMULARY DRUG (Buprenorphine/Naloxone 8mg/2mg 1 EACH Film) SUBLINGUAL SCH (10:12)
[2022-02-01 10:30] LABS: HCT 30.6 % (39.6-50.0); HGB 10.7 g/dL (13.0-17.0); MCH 31.2 pg (27.0-32.0); MCV 89.2 fL (80.0-97.0); Mean Platelet Volume 11.4 fL (9.5-12.2); NRBC Per 100 WBC 0 /100 WBCS (0.0-0.0); Platelet Count 90 X 10*3/uL (140-440); RBC 3.43 X 10*6/uL (4.40-5.60); WBC 3.32 X 10*3/uL (4.50-10.00)
[2022-02-01 10:55] LABS: African American GFR (CKD) 132.7 (60.0-200.0); Albumin 3.5 g/dL (3.8-4.9); Albumin/Globulin Ratio 1.65 (1.60-3.17); Anion Gap 10.4 mmol/L (10.00-18.00); BUN/Creat Ratio 14.92 Ratio (12.00-20.00); Blood Urea Nitrogen 10.7 mg/dL (9.0-27.0); Calcium 8.3 mg/dL (8.7-10.3); Carbon Dioxide 20.8 mmol/L (20.0-27.5); Globulin 2.2 g/dL (1.6-3.3); Magnesium 1.8 mg/dL (1.5-2.4); Non-African American GFR(CKD) 114.5 (60.0-200.0); Potassium 3.8 mmol/L (3.5-5.5); Total Bilirubin 0.4 mg/dL (0.30-1.20); Total Protein 5.7 g/dL (6.2-8.2)
== END 2022-02-01 11:58 | disposition home or self-care (01) | DRG 897 ==
LOC: EC 11:41 → 4SSUR 16:04 → OBSVTOIN 01-31 10:21
PROVIDERS: ADMIT Family Medicine; ATTEND Family Medicine
DX: F10.229 Alcohol dependence with intoxication, unspecified (principal); E46 Unspecified protein-calorie malnutrition; E87.0 Hyperosmolality and hypernatremia; S09.90XA Unspecified injury of head, initial encounter; D69.6 Thrombocytopenia, unspecified; F10.239 Alcohol dependence with withdrawal, unspecified; J44.9 Chronic obstructive pulmonary disease, unspecified; G40.909 Epilepsy, unspecified, not intractable, without status epilepticus; E87.8 Other disorders of electrolyte and fluid balance, not elsewhere classified; E87.6 Hypokalemia; E83.42 Hypomagnesemia; Z68.27 Body mass index [BMI] 27.0-27.9, adult; M25.551 Pain in right hip; E86.0 Dehydration; D72.819 Decreased white blood cell count, unspecified; H54.40 Blindness, one eye, unspecified eye; K21.9 Gastro-esophageal reflux disease without esophagitis; M41.9 Scoliosis, unspecified; F17.210 Nicotine dependence, cigarettes, uncomplicated; Z71.6 Tobacco abuse counseling; Y90.8 Blood alcohol level of 240 mg/100 ml or more; Z79.891 Long term (current) use of opiate analgesic; Z79.899 Other long term (current) drug therapy; Z86.59 Personal history of other mental and behavioral disorders; Z71.41 Alcohol abuse counseling and surveillance of alcoholic; W19.XXXA Unspecified fall, initial encounter
CPT/HCPCS: 36415; 70450; 72170; 80053; 80306; 80320; 83690; 83735; 84100; 85025; 85027; 93005; 94640; 96361; 96372; 96374; 99285

== ENCOUNTER → 2022-02-13 | Outpatient (CLI) | payer OTHER ==
[2022-02-13 23:57] LABS: Basophils # (A) 0.13 X 10*3/uL (0.00-0.10); Basophils % (A) 2.2 %; Eosinophils # (A) 0.15 X 10*3/uL (0.04-0.35); Eosinophils % (A) 2.5 %; HCT 33.5 % (39.6-50.0); HGB 10.6 g/dL (13.0-17.0); Immature Grans, Automated 0.3 %; Lymphocytes # (A) 2.18 X 10*3/uL (0.90-5.00); Lymphocytes % (A) 36.8 %; MCH 31.1 pg (27.0-32.0); MCHC 31.6 g/dL (32.0-37.0); MCV 98.2 fL (80.0-97.0); Monocytes # (A) 0.51 X 10*3/uL (0.20-1.00); Monocytes % (A) 8.6 %; NRBC Per 100 WBC 0 /100 WBCS (0.0-0.0); Neutrophils # (A) 2.94 X 10*3/uL (1.80-7.70); Neutrophils % (A) 49.6 %; Platelet Count 379 X 10*3/uL (140-440); RBC 3.41 X 10*6/uL (4.40-5.60); RDW 14.9 % (11.5-14.5); WBC 5.93 X 10*3/uL (4.50-10.00)
[2022-02-14 00:07] LABS: ALT 77 U/L (10-49); AST 55 U/L (14-35); African American GFR (CKD) 113.3 (60.0-200.0); Albumin 4.7 g/dL (3.8-4.9); Albumin/Globulin Ratio 1.74 (1.60-3.17); Alkaline Phosphatase 52 U/L (41-126); Amylase 59 U/L (23-121); BUN/Creat Ratio 14.65 Ratio (12.00-20.00); Blood Urea Nitrogen 13.9 mg/dL (9.0-27.0); Calcium 9.3 mg/dL (8.7-10.3); Carbon Dioxide 24.9 mmol/L (20.0-27.5); Chloride 100 mmol/L (96-109); Globulin 2.7 g/dL (1.6-3.3); Glucose 86 mg/dL (70-110); Lipase 40 U/L (14-60); Non-African American GFR(CKD) 97.8 (60.0-200.0); Potassium 4.3 mmol/L (3.5-5.5); Sodium 139 mmol/L (135-145); Total Bilirubin <0.15 mg/dL (0.30-1.20); Total Protein 7.4 g/dL (6.2-8.2)
== END | disposition home or self-care (01) ==
LOC: LABWHC1 16:24
PROVIDERS: ATTEND Physician Assistant
DX: F10.20 Alcohol dependence, uncomplicated (principal)
CPT/HCPCS: 36415; 80053; 82150; 83690; 85025